=== PATIENT | male | born 1950 | race Caucasian/White ===

== ENCOUNTER 2016-06-07 01:40 | Inpatient (IN) | payer OTHER, MEDICARE ==
[2016-06-07] VITALS (18 sets, daily range): BP systolic 99–176; BP diastolic 55–91; PULSE 64–112; RESP 16–28; TEMP 97–98.7; O2SAT 87–100
[~2016-06-07] VITALS: Ht 180.3 cm; Wt 108.2 kg
[2016-06-07] MEDS ORDERED: LORazepam 2 MG/ML VIAL IV PUSH ONE ×2 (02:00→03:00)
[2016-06-07] MEDS ORDERED: NITROGLYCERIN-DEXTROSE INJ 250 ML IV ONE (02:00)
[2016-06-07] MEDS ORDERED: SODIUM CHLORIDE 0.9% FLUSH 5 ML FLUSH IVF PRN (02:00)
--- NOTE | 2016-06-07 02:23 | RADRPT ---
EXAM DATE/TIME: 06/07/2016 02:04 [facility] COMPARISON: No previous studies available for comparison. INDICATIONS : Shortness of breath. MEDICAL HISTORY : None. SURGICAL HISTORY : Pacemaker. ENCOUNTER: Initial ACUITY: 1 day PAIN SCORE: 0/10 LOCATION: Bilateral chest FINDINGS: Patchy areas of mixed interstitial and alveolar opacity is present in the mid and lower lungs bilater ally. No focal areas of consolidation. The heart is upper limits normal size. Cardiac pacer leads project in the right atrium and right ventricle. Both hemidiaphragms are well delineated. No eviden ce pneumothorax. CONCLUSION: Patchy non-consolidative infiltrates in the mid and lower lungs bilaterally. Edgar Mustafa MD on June 07, 2016 at 2:21 Board Certified Radiologist. This report was verified electronically.
[2016-06-07 02:28] LABS: AUTOMATED NEUTROPHIL # 9.9 TH/MM3 (1.8-7.7); BASOPHIL # 0.2 TH/MM3 (0-0.2); BASOPHIL % 0.9 % (0.0-2.0); EOSINOPHIL # 0.5 TH/MM3 (0-0.4); EOSINOPHIL % 2.1 % (0.0-4.0); HEMATOCRIT 35.7 % (39.0-51.0); LYMPH % 46.6 % (9.0-44.0); LYMPHOCYTE # 10.4 TH/MM3 (1.0-4.8); MEAN CELL VOLUME 92.6 FL (80.0-100.0); MEAN CORPUSCULAR HEMOGLOBIN 30.3 PG (27.0-34.0); MEAN CORPUSCULAR HGB CONC 32.8 % (32.0-36.0); MONO % 6.1 % (0.0-8.0); NEUT % 44.3 % (16.0-70.0); PLATELET COUNT 364 TH/MM3 (150-450); RED BLOOD COUNT 3.86 MIL/MM3 (4.50-5.90); RED CELL DISTRIBUTION WIDTH 15.3 % (11.6-17.2); WHITE BLOOD COUNT 22.2 TH/MM3 (4.0-11.0)
[2016-06-07 02:31] LABS: HEMO FLAGS AUTO DIFF
[2016-06-07 02:34] LABS: APTT (PATIENT) 26.2 SEC (24.3-30.1); PROTHROMBIN TIME - PATIENT 10.7 SEC (9.8-11.6)
[2016-06-07 02:38] LABS: BLOOD GAS CARBOXYHEMOGLOBIN 2.6 % (0-4); BLOOD GAS HCO3 23 mmol/L (22-26); BLOOD GAS METHEMOGLOBIN 0.5 % (0-2); BLOOD GAS O2 HGB SATURATION 97 % (90-100); BLOOD GAS OXYGEN CONTENT 16.3 Vol % (12.0-20.0); BLOOD GAS PCO2 48 mmHg (38-42); BLOOD GAS PO2 430 mmHG (61-120); BLOOD GAS TOTAL HGB 11.1 G/DL (12.0-16.0); TEMP CORR TO 98.6
[2016-06-07 02:39] LABS: CRITICAL VALUE YES; DRAW SITE RT RADIAL; FIO2 100 %; NUMBER OF ARTERIAL PUNCTURES 1; OXYGEN DEVICE BiPAP; STAT YES; ULNAR PULSE PRESENT; VENT SETTINGS IPAP15/EPAP5
[2016-06-07 02:49] LABS: ALT (GPT) 23 U/L (12-78); ANION GAP 12 MEQ/L (5-15); AST (GOT) 34 U/L (15-37); BICARBONATE 21.7 MEQ/L (21.0-32.0); BLOOD UREA NITROGEN 31 MG/DL (7-18); CHLORIDE 102 MEQ/L (98-107); GLOMERULAR FILTRATION RATE 47 ML/MIN (>89); SODIUM (NA) 136 MEQ/L (136-145)
[2016-06-07] MEDS ORDERED: CEFEPIME INJ 2,000 MG in SODIUM CHLORIDE 0.9% INJ 100 ML IV ONE (03:00)
[2016-06-07] MEDS ORDERED: BUMETANIDE INJ 1 MG/4 ML VIAL IV PUSH ONE (03:00)
[2016-06-07] MEDS ORDERED: AZITHROMYCIN INJ 500 MG in SODIUM CHLOR 0.9% 250 ML INJ 250 ML IV ONE (03:00)
[2016-06-07 03:01] LABS: ALKALINE PHOSPHATASE 158 U/L (45-117); POTASSIUM 4.3 MEQ/L (3.5-5.1); TOTAL BILIRUBIN ADULT 0.4 MG/DL (0.2-1.0)
[2016-06-07 03:31] LABS: BASOPHILS 1 % (0-2); EOSINOPHILS 3 % (0-4); NEUTROPHIL # MANUAL DIFF 12.7 TH/MM3 (1.8-7.7); POLYS (SEG NEUTROPHILS) 57 % (16-70); WBC DIFF SAMPLE 100
[2016-06-07 03:33] LABS: PLATELET ESTIMATE SMEAR NORMAL (NORMAL); PLATELET MORPHOLOGY NORMAL (NORMAL); SCAN/DIFF FINAL DIFF MANUAL
[2016-06-07] MEDS ORDERED: ASPIRIN 81 MG CHEW TAB CHEW ONE (03:45)
--- NOTE | 2016-06-07 03:46 | PD ---
HPI Chief Complaint: Respiratory Distress Time Seen by Provider: 01:46 Travel History International Travel<30 days: No Contact w/Intl Traveler<30days: No Traveled to known affect area: No History of Present Illness HPI This is a 65-year-old male who has a history congestive heart failure who presents to the emergency department having sudden onset shortness of breath this evening, constant, severe associated with sweating. He denies any chest pain. He says this feels similar to when he had a heart attack about a month ago. 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 History is limited as the patient is in severe respiratory distress. PFSH Past Surgical History Cardiac Surgery: Yes (pacemaker) Other Surgery: Yes (right leg artery collapsed and re-vascularized) Social History Alcohol Use: No Tobacco Use: No Substance Use: No Allergies-Medications (Allergen,Severity, Reaction): Coded Allergies: UNOBTAINABLE (Unverified , 06/07/16) Reported Meds & Prescriptions Reported Meds & Active Scripts Active Active Prescriptions or Reported Medications Unobtainable Review of Systems ROS Limitations: Clinical Condition Physical Exam Narrative GENERAL: ill-appearing, severe respiratory distress SKIN: Diaphoretic HEAD: Atraumatic. Normocephalic. EYES: Pupils equal and round. No injection or drainage. ENT: Moist mucous membranes NECK: Trachea midline. CARDIOVASCULAR: Tachycardic. No murmur appreciated. RESPIRATORY: Rales in the bilateral lung bases, using accessory muscles, tachypnea, speaking 2-3 word sentences GASTROINTESTINAL: Abdomen soft, non-tender, nondistended. MUSCULOSKELETAL: No obvious deformities. NEUROLOGICAL: Awake and alert. No obvious cranial nerve deficits. Moving all extremities. PSYCHIATRIC: Agitated. Data Data Last Documented VS Vital Signs Date Time Temp Pulse Resp B/P Pulse Ox O2 Delivery O2 Flow Rate FiO2 06/07/16 03:45 94 22 99/55 98 BiPAP 06/07/16 02:46 3 06/07/16 02:27 100 06/07/16 01:48 97.0 Orders Complete Blood Count With Diff (06/07/16 01:46) Comprehensive Metabolic Panel (06/07/16 01:46) B-Type Natriuretic Peptide (06/07/16 01:46) Act Partial Throm Time (Ptt) (06/07/16 01:46) Prothrombin Time / Inr (Pt) (06/07/16 01:46) Troponin I (06/07/16 01:46) Arterial Blood Gas (Abg) (06/07/16 01:46) Iv Access Insert/Monitor (06/07/16 01:46) Electrocardiogram (06/07/16 01:46) Ecg Monitoring (06/07/16 01:46) Oximetry (06/07/16 01:46) Oxygen Administration (06/07/16 01:46) Chest, Single Ap (06/07/16 01:46) Sodium Chloride 0.9% Flush (Ns Flush) (06/07/16 02:00) Resp Bipap / Cpap Non Invas Vt (06/07/16 01:46) Nitroglycerin-Dextrose Inj (Nitroglyceri (06/07/16 02:00) Lorazepam Inj (Ativan Inj) (06/07/16 02:00) Blood Culture (06/07/16 02:44) Lactic Acid (06/07/16 02:44) Cefepime Inj (Maxipime Inj) (06/07/16 03:00) Azithromycin Inj (Zithromax Inj) (06/07/16 03:00) Bumetanide Inj (Bumex Inj) (06/07/16 03:00) Lorazepam Inj (Ativan Inj) (06/07/16 03:00) Aspirin Chew (Aspirin Chew) (06/07/16 03:45) Labs Laboratory Tests Test 06/07/16 06/07/16 02:00 02:27 White Blood Count 22.2 TH/MM3 Red Blood Count 3.86 MIL/MM3 Hemoglobin 11.7 GM/DL Hematocrit 35.7 % Mean Corpuscular Volume 92.6 FL Mean Corpuscular Hemoglobin 30.3 PG Mean Corpuscular Hemoglobin 32.8 % Concent Red Cell Distribution Width 15.3 % Platelet Count 364 TH/MM3 Mean Platelet Volume 9.3 FL Neutrophils (%) (Auto) 44.3 % Lymphocytes (%) (Auto) 46.6 % Monocytes (%) (Auto) 6.1 % Eosinophils (%) (Auto) 2.1 % Basophils (%) (Auto) 0.9 % Neutrophils # (Auto) 9.9 TH/MM3 Lymphocytes # (Auto) 10.4 TH/MM3 Monocytes # (Auto) 1.3 TH/MM3 Eosinophils # (Auto) 0.5 TH/MM3 Basophils # (Auto) 0.2 TH/MM3 CBC Comment AUTO DIFF Differential Total Cells 100 Counted Neutrophils % (Manual) 57 % Lymphocytes % 35 % Monocytes % 4 % Eosinophils % 3 % Basophils % 1 % Neutrophils # (Manual) 12.7 TH/MM3 Differential Comment FINAL DIFF MANUAL Platelet Estimate NORMAL Platelet Morphology Comment NORMAL Red Cell Morphology Comment NORMAL Prothrombin Time 10.7 SEC Prothromb Time International 1.0 RATIO Ratio Activated Partial 26.2 SEC Thromboplast Time Sodium Level 136 MEQ/L Potassium Level 4.3 MEQ/L Chloride Level 102 MEQ/L Carbon Dioxide Level 21.7 MEQ/L Anion Gap 12 MEQ/L Blood Urea Nitrogen 31 MG/DL Creatinine 1.50 MG/DL Estimat Glomerular Filtration 47 ML/MIN Rate Random Glucose 443 MG/DL Calcium Level 8.4 MG/DL Total Bilirubin 0.4 MG/DL Aspartate Amino Transf 34 U/L (AST/SGOT) Alanine Aminotransferase 23 U/L (ALT/SGPT) Alkaline Phosphatase 158 U/L Troponin I LESS THAN 0.02 NG/ML B-Type Natriuretic Peptide 496 PG/ML Total Protein 7.8 GM/DL Albumin 3.6 GM/DL Blood Gas Puncture Site RT RADIAL Blood Gas Patient Temperature 98.6 Blood Gas HCO3 23 mmol/L Blood Gas Base Excess -3.0 mmol/L Blood Gas Oxygen Saturation 97 % Arterial Blood pH 7.29 Arterial Blood Partial 48 mmHg Pressure CO2 Arterial Blood Partial 430 mmHG Pressure O2 Arterial Blood Oxygen Content 16.3 Vol % Arterial Blood 2.6 % Carboxyhemoglobin Arterial Blood Methemoglobin 0.5 % Blood Gas Hemoglobin 11.1 G/DL Oxygen Delivery Device BiPAP Blood Gas Ventilator Setting IPAP15/EPAP5 Blood Gas Inspired Oxygen 100 % MDM Medical Decision Making Medical Screen Exam Complete: Yes Emergency Medical Condition: Yes Medical Record Reviewed: Yes (patient is listed as Buck Polo in her system. He was recently hospitalized in the setting of respiratory failure thought to be due to a myocardial infarction and flash pulmonary edema, pt had 100% occlusion of RCA which was intervened on, and he had a pacemaker and aicd placed.) Interpretation(s) Leukocytosis Renal insufficiency Hyperglycemia Troponin is normal BNP is 496 ABG: Mild respiratory acidosis Chest x-ray: Patchy nonconsolidated infiltrates in the mid and lower lungs bilaterally Differential Diagnosis Congestive heart failure, myocardial infarction, pneumonia, pulmonary embolism Narrative Course This is a 65-year-old male who has a history of congestive heart failure who presents to the emergency department having had onset of shortness of breath that started about an hour prior to arrival. He was in severe respiratory distress upon arrival, tripoding, diaphoretic and hypoxic. He was placed on BiPAP and started on nitroglycerin as he was quite hypertensive. He was given 1 mg of IV Bumex. He was found to have a marked leukocytosis so he was empirically covered with cefepime and azithromycin and cultures were obtained. IV fluids were deferred as the patient appears to have pulmonary edema on chest x-ray. Patient appears quite anxious and was given 2.5 mg IV Ativan doses in order to tolerate BiPAP. We did trial him off of BiPAP but he was quite hypoxic and had increased work of breathing. This appears to be flash pulmonary edema in the setting congestive heart failure. He has a paced morphology on EKG with no obvious STEMI. Patient will be admitted to the intensive care unit for further monitoring. Critical Care Narrative Aggregate critical care time was 45 minutes. Time to perform other separately billable procedures was not included in the critical care time. My time did not include minutes spent treating any other patients simultaneously or on activities that did not directly contribute to the patient's treatment. The services I provided to this patient were to treat and/or prevent clinically significant deterioration that could result in: Disability, I provided critical care services requiring my management, as noted below: Chart data review, documentation time, medication orders and management, vital sign assessments/reviewing monitor data, ordering and reviewing lab tests, ordering and interpreting/reviewing x-rays and diagnostic studies, care of the patient and discussion of the patient with the admitting physicians. Diagnosis Primary Impression: Acute respiratory failure with hypoxia Admitting Information Admitting Physician Requests: Admit Scripts Unable to Obtain Active Prescriptions or Reported Meds Leti Flores MD Jun 07, 2016 03:46
[2016-06-07] MEDS ORDERED: SODIUM CHLORIDE 0.9% FLUSH 5 ML FLUSH IV FLUSH PRN ×2 (04:30→06:45)
[2016-06-07] MEDS ORDERED: ACETAMINOPHEN 325 MG TAB PO PRN ×2 (04:30→06:45)
[2016-06-07] MEDS ORDERED: GLUCAGON 1 MG/ML VIAL OTHER PRN (04:30)
[2016-06-07] MEDS ORDERED: DEXTROSE 50% IN WATER 50 ML VIAL(D50) IV PUSH PRN (04:30)
[2016-06-07] MEDS ORDERED: ONDANSETRON HCL 4 MG/2 ML VIAL IV PRN ×2 (04:30→06:45)
[2016-06-07] MEDS ORDERED: CHLORHEXIDINE GLUCONATE 2 % 1 PACK (2 CLOTHS) TOP PRN ×2 (04:30→06:45)
[2016-06-07] MEDS ORDERED: MISCELLANEOUS NURSING INFORMATION XX SCH ×2 (04:30→06:45)
[2016-06-07] MEDS ORDERED: RESP: ALBUTEROL 2.5 MG/3 ML NEB (PRN) INH (04:30)
--- NOTE | 2016-06-07 05:43 | HHI.HP ---
[facility] Service Critical Care Medicine Primary Care Physician No Primary Care Physician Admission Diagnosis hypoxic respiratory failure Diagnosis: (1) History of ventricular tachycardia Diagnosis: Principal (2) Diabetes mellitus Diagnosis: Principal (3) Anemia Diagnosis: Principal (4) Hyperparathyroidism Diagnosis: Principal (5) Peripheral neuropathy Diagnosis: Principal (6) Peripheral vascular disease Diagnosis: Principal (7) Leukocytosis Diagnosis: Principal (8) Chronic kidney disease, stage III (moderate) Diagnosis: Principal (9) Dyslipidemia Diagnosis: Principal (10) Hypertension Diagnosis: Principal (11) Chronic systolic heart failure Diagnosis: Principal (12) Coronary artery disease Diagnosis: Principal (13) Acute respiratory failure with hypoxia Diagnosis: Principal (14) SIRS (systemic inflammatory response syndrome) Diagnosis: Principal Chief Complaint: Shortness of breath Travel History International Travel<30 Days: No Contact w/Intl Traveler <30 Da: No Traveled to Known Affected Are: No Sepsis Criteria SIRS Criteria (2 or more): RR > 20 or PaCO2 < 32, WBC > 62731, < 4000 or > 10 % bands Sepsis Criteria (SIRS+source): Infect source susp/known History of Present Illness 65-year-old male. Date of admission 06/07/2016. Past medical history includes recent heart catheterization 04/30/[address] Kan secondary to an inferior STEMI with PCI/MERE placed placed to the RCA and PDA. Left main was 30%. LAD was 40% proximal/80% diagonal. Left circumflex was 30%. EF was 20/5/30 percent. In [place] devices placed as well. Patient had prolonged intubation During this hospitalization developed V. tach as well and a dual-chamber defibrillator was placed by Dr. Yousif/DDD 70 on 05/27. Past medical history also includes coronary disease with 2 prior stents by the hypertension, diabetes,'s chronic systolic heart failure, peripheral vascular disease with a right femoropopliteal in situ saphenous vein revision [address] Mayes with thrombolytic colectomy to the popliteal artery and anterior and posterior tibial arteries. Patient presents to [facility] with acute onset of shortness of breath. Review of Systems Constitutional: COMPLAINS OF: Fatigue, Weight gain, DENIES: Weight loss, Chills Endocrine: DENIES: Polydipsia, Polyuria Eyes: DENIES: Blurred vision, Double Vision Ears, nose, mouth, throat: DENIES: Sinus Pain Respiratory: COMPLAINS OF: Sputum production, Shortness of breath, DENIES: Wheezing, Hemoptysis Cardiovascular: COMPLAINS OF: Chest pain, Dyspnea on Exertion, Lower Extremity Edema, Claudication Gastrointestinal: COMPLAINS OF: Abdominal pain, Nausea, DENIES: Vomiting Genitourinary: DENIES: Dysuria, Nocturia Musculoskeletal: DENIES: Joint pain, Muscle aches Integumentary: DENIES: Abnormal pigmentation Hematologic/lymphatic: DENIES: Bruising Immunologic/allergic: DENIES: Urticaria Neurologic: DENIES: Abnormal gait, Headache Psychiatric: COMPLAINS OF: Anxiety, DENIES: Confusion Past Family Social History Allergies: Coded Allergies: UNOBTAINABLE (Unverified , 06/07/16) Past Medical History Coronary artery disease history of 4 stents Hypertension Diabetes mellitus Chronic systolic heart failure Chronic kidney disease stage III Peripheral vascular disease Hyperparathyroidism Anemia Tobaccoism History of V. tach Past Surgical History Dual-chamber pacemaker/defibrillator Coronary catheterization with Impala device with drug-eluting stent placed RCA and PDA Bilateral inguinal hernia repair Right femoropopliteal revision with probable colectomy to the popliteal artery and anterior posterior tibial arteries Appendectomy Reported Medications Aspirin 81 mg by mouth daily Coreg 12.5 mg by mouth twice a day Norvasc 5 mill grams by mouth daily Amiodarone 200 mg by mouth daily Lipitor 80 mg by mouth daily Bumex 1 mg by mouth twice a day Levemir 15 units at night Protonix 40 mg by mouth daily Brilinta 90 mg twice a day Neurontin 300 mg 3 times a day Active Ordered Medications Reviewed in EMR Family History Father with AR. Social History Occasional alcohol use. Three-quarter pack per day tobaccoism. No IV drug use. Physical Exam Vital Signs Vital Signs Date Time Temp Pulse Resp B/P Pulse Ox O2 Delivery O2 Flow Rate FiO2 06/07/16 05:25 88 24 139/73 94 BiPAP 40 06/07/16 03:45 94 22 99/55 98 BiPAP 06/07/16 03:39 22 06/07/16 02:46 101 24 131/62 96 Nasal Cannula 3 06/07/16 02:27 98 BiPAP 100 06/07/16 02:24 102 26 167/79 98 BiPAP 06/07/16 02:02 111 28 121/65 98 BiPAP 100 06/07/16 01:52 96 BiPAP 06/07/16 01:52 BiPAP 06/07/16 01:50 100 100 06/07/16 01:48 97.0 112 28 176/91 87 Physical Exam GENERAL: SKIN: Warm and dry. HEAD: Atraumatic. Normocephalic. EYES: Pupils equal and round. No scleral icterus. No injection or drainage. ENT: No nasal bleeding or discharge. Mucous membranes pink and moist. NECK: Trachea midline. No JVD. CARDIOVASCULAR: Regular rate and rhythm. RESPIRATORY: No accessory muscle use. Clear to auscultation. Breath sounds equal bilaterally. GASTROINTESTINAL: Abdomen soft, non-tender, nondistended. Hepatic and splenic margins not palpable. MUSCULOSKELETAL: Extremities without clubbing, cyanosis, or edema. No obvious deformities. NEUROLOGICAL: Awake and alert. No obvious cranial nerve deficits. Motor grossly within normal limits. Five out of 5 muscle strength in the arms and legs. Normal speech. PSYCHIATRIC: Appropriate mood and affect; insight and judgment normal. Laboratory Laboratory Tests Test 06/07/16 06/07/16 06/07/16 02:00 02:27 03:40 White Blood Count 22.2 Red Blood Count 3.86 Hemoglobin 11.7 Hematocrit 35.7 Mean Corpuscular Volume 92.6 Mean Corpuscular Hemoglobin 30.3 Mean Corpuscular Hemoglobin 32.8 Concent Red Cell Distribution Width 15.3 Platelet Count 364 Mean Platelet Volume 9.3 Neutrophils (%) (Auto) 44.3 Lymphocytes (%) (Auto) 46.6 Monocytes (%) (Auto) 6.1 Eosinophils (%) (Auto) 2.1 Basophils (%) (Auto) 0.9 Neutrophils # (Auto) 9.9 Lymphocytes # (Auto) 10.4 Monocytes # (Auto) 1.3 Eosinophils # (Auto) 0.5 Basophils # (Auto) 0.2 CBC Comment AUTO DIFF Differential Total Cells 100 Counted Neutrophils % (Manual) 57 Lymphocytes % 35 Monocytes % 4 Eosinophils % 3 Basophils % 1 Neutrophils # (Manual) 12.7 Differential Comment FINAL DIFF MANUAL Platelet Estimate NORMAL Platelet Morphology Comment NORMAL Red Cell Morphology Comment NORMAL Prothrombin Time 10.7 Prothromb Time International 1.0 Ratio Activated Partial 26.2 Thromboplast Time Sodium Level 136 Potassium Level 4.3 Chloride Level 102 Carbon Dioxide Level 21.7 Anion Gap 12 Blood Urea Nitrogen 31 Creatinine 1.50 Estimat Glomerular Filtration 47 Rate Random Glucose 443 Calcium Level 8.4 Total Bilirubin 0.4 Aspartate Amino Transf 34 (AST/SGOT) Alanine Aminotransferase 23 (ALT/SGPT) Alkaline Phosphatase 158 Troponin I LESS THAN 0.02 B-Type Natriuretic Peptide 496 Total Protein 7.8 Albumin 3.6 Blood Gas Puncture Site RT RADIAL Blood Gas Patient Temperature 98.6 Blood Gas HCO3 23 Blood Gas Base Excess -3.0 Blood Gas Oxygen Saturation 97 Arterial Blood pH 7.29 Arterial Blood Partial 48 Pressure CO2 Arterial Blood Partial 430 Pressure O2 Arterial Blood Oxygen Content 16.3 Arterial Blood 2.6 Carboxyhemoglobin Arterial Blood Methemoglobin 0.5 Blood Gas Hemoglobin 11.1 Oxygen Delivery Device BiPAP Blood Gas Ventilator Setting IPAP15/EPAP5 Blood Gas Inspired Oxygen 100 Lactic Acid Level 1.5 Date/Time Procedure Status Source Growth 06/07/16 03:40 Aerobic Blood Culture Received Blood Peripheral Pending 06/07/16 03:40 Anaerobic Blood Culture Received Blood Peripheral Pending Result Diagram: 06/07/16 0200 06/07/16 0200 Imaging Last Impressions Chest X-Ray 06/07/16 0146 Signed Impressions: Service Date/Time: Tuesday, June 07, 2016 02:04 - CONCLUSION: Patchy non-consolidative infiltrates in the mid and lower lungs bilaterally. Edgar Mustafa MD Assessment and Plan Assessment and Plan Neuro/Psych: Peripheral neuropathy secondary to diabetes Continue Neurontin 300 mg by mouth 3 times a day for neuropathy. Acetaminophen for fever [place]/morphine for pain management CV: Chronic systolic heart failure EF 25-30% with mild LVH and diffuse hypokinesis Peripheral vascular disease - history of right femoropopliteal with in situ saphenous vein grafting with thrombectomy of popliteal artery/anterior posterior tibial arteries [address] Mayes Coronary artery disease recent PCI/drug-eluting stent to RCA/PDA 04/[address] Kan secondary to inferior STEMI Dual-chamber defibrillator placed 05/[address] Yousif. DDD/70 Hypertension Dyslipidemia Elevated troponin Cardiac consultation/Dr. Kan cardiac management Cycle troponins. Limited echo cardiogram to eval LV function pending Continue amiodarone 200 mg by mouth daily for history of V. tach Continue Brilinta 90 mg twice a day and aspirin 81 mg daily for heart stent Continue diuresis with Bumex 1 mg IV twice a day. On by mouth at home. Kilo 30 mg by mouth daily for dyslipidemia. Resume Coreg at 6.25 mg twice a day and Norvasc 2.5 mg by mouth daily for hypertension. On double dose at home. Resp: Acute hypoxemic respiratory failure Currently on BiPAP 15/5 at 40% Wean FiO2 as tolerated Chest x-ray reveals bilateral lower lobe infiltrates versus pulmonary edema. Continue gentle diuresis. Bronchodilator therapy every 6 hours and as needed GI: Gastroesophageal reflux disease ADA diet. Protonix for GI prophylaxis. On Protonix home. Colace/as needed Senokot for bowel regimen : [place] will be placed for accurate I's and O's in a critically ill patient Endo: Diabetes mellitus type 2 Hyperglycemia of critical illness On lispro 15 units daily at home. Sliding-scale insulin with Accu-Cheks every 4 hours to maintain euglycemia. Initiate insulin drip if unable to maintain tight euglycemic control Renal: Chronic kidney disease stage III. Creatinine currently is at baseline. Monitor urine output closely. Accurate I 's and O's Heme: Leukocytosis Normocytic anemia Monitor CBC/CMP daily. Follow trends ID: Possible community-acquired pneumonia History of MRSA treated with Zyvox Day 1 cefepime/Zithromax. Will add Zyvox history of MRSA pneumonia in sputum Blood cultures 2, sputum and UA pending. Influenza pending. FEN: Replace electrolytes as clinically indicated MSK: Osteoarthritis PT evaluate and treat Access - Utilize peripheral IV. Central line if indicated Prophylaxis - GI - Protonix - DVT - SCD/Lovenox subcutaneous Critical Care: The total critical care time was 75 minutes exclusive of procedure time. Code Status Full code Discussed Condition With Dr. Flores/ED physician and patient. Care plan discussed and all questions answered. Problem Qualifiers (1) Diabetes mellitus: Qualified Code: E11.8 - Type 2 diabetes mellitus with complication, with long- term current use of insulin (2) Anemia: Qualified Code: D64.9 - Anemia, unspecified type (3) Peripheral neuropathy: Qualified Code: G62.9 - Peripheral polyneuropathy (4) Leukocytosis: Qualified Code: D72.829 - Leukocytosis, unspecified type (5) Coronary artery disease: Qualified Code: I25.10 - Coronary artery disease involving [place] coronary artery of [place] heart, angina presence unspecified Dennis Schaefer MD Jun 07, 2016 05:43
[2016-06-07] MEDS: INSULIN ASPART SUPPLEMENTAL SCALE SQ SCH ×5 (05:48→20:31)
[2016-06-07] MEDS ORDERED: SENNOSIDES 8.6 MG TAB PO PRN (06:45)
[2016-06-07 07:49] LABS: BLOOD, URINE NEG (NEG); GLUCOSE,URINE 300 mg/dL (NEG); HYALINE CAST, URINE 2 /lpf (RARE); KETONE, URINE NEG (NEG); NITRITE,URINE NEG (NEG); URINE COLOR COLORLESS (YELLW/STRAW)
[2016-06-07 07:55] LABS: COMMENT (UR) CATH-CULT NOT IND; CULTURE IF INDICATED CATH CULTURE NOT IND
[2016-06-07] MEDS: SODIUM CHLORIDE 0.9% FLUSH 5 ML FLUSH IV FLUSH SCH ×2 (09:00→20:32)
[2016-06-07] MEDS: DOCUSATE SODIUM 100 MG CAP PO SCH ×2 (09:00→20:37)
[2016-06-07] MEDS: ASPIRIN 81 MG CHEW TAB CHEW SCH (09:00)
[2016-06-07] MEDS ORDERED: SODIUM CHLORIDE 0.9% FLUSH 5 ML FLUSH IV FLUSH SCH (09:00)
[2016-06-07] MEDS: AMIODARONE 200 MG TAB PO SCH (09:00)
[2016-06-07] MEDS ORDERED: PANTOPRAZOLE SODIUM 40 MG VIAL IV SCH (09:00)
[2016-06-07] MEDS: GABAPENTIN 300 MG CAP PO SCH ×3 (09:00→18:04)
[2016-06-07] MEDS: PANTOPRAZOLE SOD 40 MG DELAYED RELEASE TAB PO SCH (09:00)
[2016-06-07] MEDS: CARVEDILOL 6.25 MG TAB PO SCH ×2 (09:00→20:36)
[2016-06-07] MEDS: INSULIN DETEMIR 100 UNITS/ML VIAL SQ SCH ×2 (09:00→20:32)
[2016-06-07] MEDS: amLODIPine BESYLATE 5 MG TAB PO SCH (09:00)
[2016-06-07] MEDS: RESP: ALBUTEROL 2.5 MG/IPRATROPIUM 0.5 MG NEB (SCH) INH ×3 (09:50→21:14)
[2016-06-07] MEDS: ENOXAPARIN SODIUM 40 MG/0.4 ML SYRINGE SQ SCH (11:16)
[2016-06-07] MEDS: MORPHINE SULFATE 4 MG/ML INJ IV PRN ×6 (11:16→22:34)
[2016-06-07] MEDS: TICAGRELOR 90 MG TAB PO SCH ×2 (11:17→20:36)
[2016-06-07] MEDS: ATORVASTATIN 20 MG TAB PO SCH (11:17)
[2016-06-07] MEDS: ARTIFICIAL TEARS OPTH SOLN 15 ML BTL EACH EYE SCH ×3 (11:17→18:03)
--- NOTE | 2016-06-07 11:40 | RADRPT ---
EXAM DATE/TIME: 06/07/2016 11:05 [facility] COMPARISON: No previous studies available for comparison. INDICATIONS : Bilateral lower extremity edema. MEDICAL HISTORY : Dyspnea. SURGICAL HISTORY : Pacemaker. Right leg artery re-vascularized. ENCOUNTER: Initial ACUITY: 1 day PAIN SCORE: 0/10 LOCATION: Bilateral legs. TECHNIQUE: Venous ultrasound of the left and right leg was performed from the inguinal ligament to the proximal calf. Real-time, color Doppler and spectral tracing, compression and augmentation techniques were us ed. FINDINGS: RIGHT LEG: There is normal compressibility of the deep venous system from the inguinal region to the proximal ca lf. No echogenic clot is seen in the lumen of the common femoral, femoral, popliteal, and posterior tibial veins. There is a normal response of the venous system to proximal and distal augmentation an d respiration. LEFT LEG: There is normal compressibility of the deep venous system from the inguinal region to the proximal ca lf. No echogenic clot is seen in the lumen of the common femoral, femoral, popliteal, and posterior tibial veins. There is a normal response of the venous system to proximal and distal augmentation an d respiration. CONCLUSION: No DVT. Florencio Jules MD on June 07, 2016 at 11:38 Board Certified Radiologist. This report was verified electronically.
[2016-06-07] MEDS ORDERED: SODIUM BICARBONATE 8.4% INJ 150 MEQ in WATER STERILE FOR INJ 850 ML IV SCH (15:00)
[2016-06-07] MEDS ORDERED: IOHEXOL 350 MG/ML 10 ML VIAL (for RAD DIAG) IV ONE (15:22)
--- NOTE | 2016-06-07 15:45 | RADRPT ---
EXAM DATE/TIME: 06/07/2016 15:18 [facility] COMPARISON: No previous studies available for comparison. INDICATIONS : Shortness of breath; evaluate for pulmonary embolism. IV CONTRAST: 50 cc Omnipaque 350 (iohexol) IV RADIATION DOSE: 17.01 CTDIvol (mGy) MEDICAL HISTORY : None SURGICAL HISTORY : Pacemaker. ENCOUNTER: Initial ACUITY: 1 day PAIN SCALE: 0/10 LOCATION: chest TECHNIQUE: Volumetric scanning of the chest was performed using a pulmonary embolism protocol MIP images were re constructed. Using automated exposure control and adjustment of the mA and/or kV according to patien t size, radiation dose was kept as low as reasonably achievable to obtain optimal diagnostic quality images. FINDINGS: PULMONARY ARTERIES: No filling defects are seen in the pulmonary arteries through the segmental level. LUNGS: Patchy airspace opacities are seen of both lungs, fairly diffuse but with a somewhat mid and lower te[place] ng predominant distribution. PLEURAE: Tiny, bilateral pleural effusions. MEDIASTINUM: There are numerous mediastinal lymph nodes that measure up to 15 mm in greatest short axis dimension. There are upper limits of normal lymph nodes of both lani. Heart size within normal limits. Widespre ad right and left-sided coronary artery calcification noted. MUSCULOSKELETAL: Within normal limits for patient age. MISCELLANEOUS: Several heterogeneous nodules are seen in the left adrenal gland. There is a 2.5 cm cyst of the visua lized left ovary. CONCLUSION: 1. No pulmonary embolus. 2. Very small, bilateral pleural effusions and patchy bilateral airspace opacities. 3. Mildly enlarged mediastinal lymph nodes, nonspecific. 4. Several nodules up to 2 cm in size of the left adrenal gland, incompletely characterized but stati stically most likely adenomas. There is a cyst of the left kidney. 5. Coronary artery calcification. Florencio Hamilton MD on June 07, 2016 at 15:40 Board Certified Radiologist. This report was verified electronically.
[2016-06-07] MEDS: BUMETANIDE INJ 1 MG/4 ML VIAL IV PUSH SCH (15:51)
[2016-06-07] MEDS: CEFEPIME INJ 2,000 MG in SODIUM CHLORIDE 0.9% INJ 100 ML IV SCH (15:51)
--- NOTE | 2016-06-07 16:32 | MB ---
cc: ROBERT RESENDEZ DO DATE OF CONSULTATION: 06/07/2016. REASON FOR CONSULTATION: Elevation of troponins. HISTORY OF PRESENT ILLNESS: This is a pleasant 65-year-old male who presented to the [facility] Emergency Room on June 07, 2016 for shortness of breath. NOTE: Of note, he previously was here and has a had another record within our system with a medical record number of [id number] from previous visits. Previously when he was, he was found to have an inferior STEMI and underwent cardiac catheterization. During this, an ____ was placed and two drug-eluting stents were placed into the distal RCA and PDA. Afterwards, it appears he developed AV block and had episodes of ventricular tachycardia. Because of this, he had an ICD placed. Since leaving, he states that he has been doing relatively well at home although he cannot walk as far as he feels like he could before. He has been doing relatively well and trying to do his exercises every day including walking. Since being home, he has two or three episodes where he wakes up at night short of breath, sits up for a little while and feels better. Also over the last ten days, he has noticed that he has woken up with episodes of diaphoresis. During the day, including his exercises, he gets no chest pain or diaphoresis. He has had no chest pain at home although he never had chest pain with his previous myocardial infarction. Yesterday for lunch he drank a amador anuradha and ate a ham sandwich and then took his mother out to dinner where he had a [employer]. He woke up last night with an episode shortness of breath. He was not having chest pain at that time. The shortness of breath did not go away so he decided to call 9--1. On arrival, he was found to be significantly short of breath and at that time was placed on BiPAP. He was also given a milligram of IV Bumex. On seeing him, he states that he is currently comfortable on nasal cannula. He denies chest pain or shortness of breath. Lastly, he notes blisters on both his heels which appear to be eschar. He states that these are relatively new. PAST MEDICAL HISTORY: 1. Coronary artery disease with recent inferior stenting (April 2016). 2. Hypertension 3. Diabetes mellitus 4. Chronic systolic heart failure with an ejection fraction of 25% to 30% by echocardiogram (May 05, 2016). 5. History of ventricular tachycardia after previous myocardial infarction. 6. Chronic kidney disease. 7. Peripheral vascular disease. 8. Hyperparathyroidism. 9. Anemia. PAST SURGICAL HISTORY: 1. Placement of a [employer] dual-chamber ICD (May 05, 2016), model number 0296, serial number [id number] for the AV block and ventricular tachycardia. 2. Cardiac catheterization (April 30, 2016): For an inferior STEMI with placement of a drug-eluting stent (3.0 x 30) to the distal right coronary artery, drug-eluting stent (2.75 x 13) to the posterior descending artery. 3. Bilateral inguinal hernia repair 4. Right femoropopliteal revision to the popliteal artery and anterior and posterior tibial arteries. ALLERGIES: NO KNOWN DRUG ALLERGIES. MEDICATIONS: 1. Aspirin 81 milligrams daily 2. Coreg 12.5 milligrams twice a day 3. Norvasc 5 milligrams daily 4. Amiodarone 200 milligrams daily 5. Lipitor 80 milligrams daily 6. Bumex 1 milligram twice a day 7. Levemir 15 units at night 8. Protonix 40 milligrams daily 9. Brilinta 90 milligrams twice a day 10. Neurontin 300 mg three times a day. FAMILY HISTORY: Multiple family members with myocardial infarctions in their 60s to 70s. SOCIAL HISTORY: Occasional alcohol use. No IV drug abuse. Does smoke a half to overt three-quarters of a pack of cigarettes daily. REVIEW OF SYSTEMS Fourteen systems were reviewed including osteopathic with pertinent positives and negatives as above; otherwise negative. PHYSICAL EXAMINATION VITAL SIGNS: Temperature 97.0, heart rate 81, blood pressure 121/63, respirations 20, pulse oximetry 99% on four liters. GENERAL: In general the patient appears well and in no acute distress, awake, alert and oriented times three. HEAD, EYES, EARS, NOSE, THROAT: Extraocular muscles intact. Mucous membranes moist. NECK: The neck is supple. Minimal JVD at 45 degrees. No carotid bruits heard bilaterally. Carotid upstroke is brisk in nature. HEART: Regular rate and rhythm. Positive first and second heart sounds with a 1/6 holosystolic murmur noted at the apex. LUNGS: Decreased breath sounds bilaterally with minimal rhonchi and rales at the bases. ABDOMEN: The abdomen is soft, nontender and nondistended. No organomegaly noted. EXTREMITIES: No clubbing, cyanosis or edema. Bilateral heels with eschar wounds noted. NEUROLOGIC: No focal deficits. SKIN: Warm, dry and intact. OSTEOPATHIC: Osteopathically, no kyphoscoliosis, lordosis or paraspinal tender points. LABORATORY FINDINGS: White blood cells 22.2, hemoglobin 11.7, hematocrit 35.7, platelets 364,000. Blood gas shows pH 7.29, pCO2 48, pO2 430, HCO3 23 on BiPAP at 100%. Potassium 4.3, BUN 31, creatinine 1.5. Troponin 1.96. BNP 496. Lactic acid 1.5. EKGS: Electrocardiogram (June 07, 2016 at 1100): Electronic V-paced. IMPRESSIONS: 1. Acute on chronic systolic heart failure possibly due to ischemia versus excess salt intake. 2. NSTEMI, possible type 1 versus type 2. 3. Coronary artery disease as above with recent inferior STEMI requiring intervention. 4. Chronic systolic heart failure with an ejection fraction of 25% to 30% by echocardiogram (May 05, 2016). 5. Leukocytosis with an unknown cause. 6. Hypoxia, possibly multifactorial, including acute systolic heart failure. 7. Night sweats from an unknown cause. 8. Peripheral artery disease with bilateral heel eschar wounds and previous right lower extremity femoropopliteal bypass. 9. History of AV block and ventricular tachycardia post STEMI requiring placement of an ICD 10. Chronic kidney disease stage III. 11. Diabetes mellitus with peripheral neuropathy. 12. criteria with unknown source for sepsis. RECOMMENDATIONS: 1. Mr. Polo appears to be an acute systolic heart failure although this may not the only cause of his shortness of breath. He did overload on salt the day before and this may have led him into his acute systolic heart failure. We will continue to diurese him from that standpoint. 2. As far as his NSTEMI, this may be type 1 versus type 2 in nature. He will continue on his aspirin Brilinta, Lipitor and Coreg. 3. As far as his history of ventricular tachycardia, he will continue on amiodarone. 4. Will check a 2-D echocardiogram to look at his overall left ventricular function. 5. I did speak with the critical care team about consideration of other causes of his shortness of breath; specifically, with his night sweats and elevated white blood count. The plan will be for a CTA to look not only for a pulmonary embolus but at his infiltrates and possible pneumonia. 6. Depending on his hospital course, we will consider further ischemic evaluation based on his NSTEMI and acute heart failure. Thank you for allowing me to see Parag Polo. If there are any questions, please do not hesitate to call. Robert Resendez DO VGP/JCC /3:01 PM /3:55 PM
--- NOTE | 2016-06-07 17:49 | EKG ---
Date Performed: 06/07/2016 Time Performed: 01:44:42 PTAGE: 65 years EKG: ELECTRONIC VENTRICULAR PACEMAKER ABNORMAL RHYTHM ECG NO PREVIOUS TRACING DOCTOR: Ernesto Smipson Interpretating Date/Time 06/07/2016 17:47:48
--- NOTE | 2016-06-07 17:50 | EKG ---
Date Performed: 06/07/2016 Time Performed: 11:00:40 PTAGE: 65 years EKG: ELECTRONIC VENTRICULAR PACEMAKER ABNORMAL RHYTHM ECG Compared to prior tracing no significa nt change PREVIOUS TRACING : 06/07/2016 05.36 DOCTOR: Ernesto Simpson Interpretating Date/Time 06/07/2016 17:49:32
--- NOTE | 2016-06-07 17:50 | EKG ---
Date Performed: 06/07/2016 Time Performed: 05:36:33 PTAGE: 65 years EKG: ELECTRONIC VENTRICULAR PACEMAKER ABNORMAL RHYTHM ECG PREVIOUS TRACING 06/07/16 @ 01.44.42 DOCTOR: Ernesto Simpson Interpretating Date/Time 06/07/2016 17:48:52
[2016-06-07] MEDS: LINEZOLID 600 MG TAB PO SCH (20:36)
[2016-06-07] MEDS: ACETYLCYSTEINE 20% 6,000 MG/30 ML ORAL SOLN VIAL PO SCH (20:36)
[2016-06-08] VITALS (14 sets, daily range): BP systolic 102–127; BP diastolic 57–71; PULSE 69–71; RESP 13–24; TEMP 97.7–98.6; O2SAT 91–97
[2016-06-08] MEDS: MORPHINE SULFATE 4 MG/ML INJ IV PRN ×9 (01:03→22:30)
[2016-06-08] MEDS: ACETAMINOPHEN/HYDROcodone 325 MG/5 MG TAB PO PRN ×5 (01:57→22:35)
[2016-06-08] MEDS: CEFEPIME INJ 2,000 MG in SODIUM CHLORIDE 0.9% INJ 100 ML IV SCH ×2 (02:01→14:36)
[2016-06-08] MEDS: BUMETANIDE INJ 1 MG/4 ML VIAL IV PUSH SCH ×2 (02:01→14:36)
[2016-06-08] MEDS: AZITHROMYCIN INJ 500 MG in SODIUM CHLOR 0.9% 250 ML INJ 250 ML IV SCH (02:02)
[2016-06-08] MEDS ORDERED: CHLORHEXIDINE GLUCONATE 2 % 1 PACK (2 CLOTHS) TOP SCH (04:00)
[2016-06-08] MEDS: INSULIN ASPART SUPPLEMENTAL SCALE SQ SCH ×6 (04:00→20:00)
[2016-06-08] MEDS: CHLORHEXIDINE GLUCONATE 2 % 1 PACK (2 CLOTHS) TOP SCH (04:00)
[2016-06-08] MEDS: RESP: ALBUTEROL 2.5 MG/IPRATROPIUM 0.5 MG NEB (SCH) INH ×4 (04:01→21:41)
[2016-06-08 04:06] LABS: AUTOMATED NEUTROPHIL # 7.1 TH/MM3 (1.8-7.7); BASOPHIL # 0.1 TH/MM3 (0-0.2); BASOPHIL % 1.1 % (0.0-2.0); EOSINOPHIL # 0.2 TH/MM3 (0-0.4); EOSINOPHIL % 1.9 % (0.0-4.0); HEMATOCRIT 27.3 % (39.0-51.0); HEMO FLAGS DIFF FINAL; LYMPH % 23.3 % (9.0-44.0); LYMPHOCYTE # 2.5 TH/MM3 (1.0-4.8); MEAN CORPUSCULAR HEMOGLOBIN 31.1 PG (27.0-34.0); MEAN CORPUSCULAR HGB CONC 34.6 % (32.0-36.0); MONO % 6.7 % (0.0-8.0); PLATELET COUNT 180 TH/MM3 (150-450); RED BLOOD COUNT 3.03 MIL/MM3 (4.50-5.90); RED CELL DISTRIBUTION WIDTH 14.7 % (11.6-17.2); WHITE BLOOD COUNT 10.6 TH/MM3 (4.0-11.0)
[2016-06-08 04:13] LABS: APTT (PATIENT) 28.6 SEC (24.3-30.1); INTERNATIONAL NORMALIZED RATIO 1.1 RATIO; PROTHROMBIN TIME - PATIENT 11.7 SEC (9.8-11.6)
[2016-06-08 04:37] LABS: ALKALINE PHOSPHATASE 88 U/L (45-117); ALT (GPT) 19 U/L (12-78); ANION GAP 8 MEQ/L (5-15); AST (GOT) 50 U/L (15-37); BICARBONATE 28.8 MEQ/L (21.0-32.0); BLOOD UREA NITROGEN 31 MG/DL (7-18); CHLORIDE 103 MEQ/L (98-107); GLOMERULAR FILTRATION RATE 52 ML/MIN (>89); MAGNESIUM 1.6 MG/DL (1.5-2.5); POTASSIUM 3.6 MEQ/L (3.5-5.1); SODIUM (NA) 140 MEQ/L (136-145); TOTAL BILIRUBIN ADULT 0.5 MG/DL (0.2-1.0)
--- NOTE | 2016-06-08 06:52 | RADRPT ---
EXAM DATE/TIME: 06/08/2016 05:17 [place] COMPARISON: CHEST SINGLE AP, June 07, 2016, 2:04. INDICATIONS : Shortness of breath, possible pulmonary disease. MEDICAL HISTORY : None. SURGICAL HISTORY : Pacemaker. ENCOUNTER: Subsequent ACUITY: 2 days PAIN SCORE: 0/10 LOCATION: Bilateral chest FINDINGS: Patchy nonconsolidated infiltrates in lower lungs have improved slightly when compared to prior. No focal areas of consolidation. The heart is mildly enlarged, stable from prior. Both hemidiaphragms are well delineated. CONCLUSION: Persistent but improving bilateral acinar infiltrates. Edgar Mustafa MD on June 08, 2016 at 6:50 Board Certified Radiologist. This report was verified electronically.
[2016-06-08] MEDS: ACETYLCYSTEINE 20% 6,000 MG/30 ML ORAL SOLN VIAL PO SCH ×2 (08:57→20:40)
[2016-06-08] MEDS: ATORVASTATIN 20 MG TAB PO SCH (08:58)
[2016-06-08] MEDS: INSULIN DETEMIR 100 UNITS/ML VIAL SQ SCH ×2 (08:58→20:39)
[2016-06-08] MEDS: ASPIRIN 81 MG CHEW TAB CHEW SCH (08:58)
[2016-06-08] MEDS: AMIODARONE 200 MG TAB PO SCH (08:58)
[2016-06-08] MEDS: PANTOPRAZOLE SOD 40 MG DELAYED RELEASE TAB PO SCH (08:58)
[2016-06-08] MEDS: TICAGRELOR 90 MG TAB PO SCH ×2 (08:58→20:39)
[2016-06-08] MEDS: DOCUSATE SODIUM 100 MG CAP PO SCH ×2 (08:58→20:39)
[2016-06-08] MEDS: GABAPENTIN 300 MG CAP PO SCH ×3 (08:58→17:35)
[2016-06-08] MEDS: LINEZOLID 600 MG TAB PO SCH ×2 (08:58→20:39)
[2016-06-08] MEDS: CARVEDILOL 6.25 MG TAB PO SCH ×2 (08:59→20:39)
[2016-06-08] MEDS: amLODIPine BESYLATE 5 MG TAB PO SCH (08:59)
[2016-06-08] MEDS: ENOXAPARIN SODIUM 40 MG/0.4 ML SYRINGE SQ SCH (08:59)
--- NOTE | 2016-06-08 09:01 | PD.CARD.PN ---
Subjective Subjective Remarks No chest pain, no shortness of breath Objective Medications Current Medications Medications (Trade) Dose Ordered Sig/Lily Route Start Time Stop Time Status Last Admin (Zofran Inj) 4 mg Q6H PRN IV 06/07/16 04:30 (Lovenox Inj) 40 mg Q24H SQ 06/07/16 09:00 06/07/16 11:16 Miscellaneous Information 1 Q361D XX 06/07/16 04:30 (Chlorhexidine 2% Cloth) 3 pack Taper DAILY@04 TOP 06/08/16 04:00 06/04/17 03:59 06/08/16 04:00 (Chlorhexidine 2% Cloth) 3 pack UNSCH PRN TOP 06/07/16 04:30 Bumetanide 1 mg 1 mg Q12H IV PUSH 06/07/16 15:00 06/08/16 02:01 Cefepime HCl 2000 mg/Sodium Chloride 100 ml @ 200 mls/hr Q12H IV 06/07/16 15:00 06/08/16 02:01 (Zithromax Inj/ NS 250 ml Inj) 250 ml @ 250 mls/hr Q24H IV 06/08/16 03:00 06/08/16 02:02 (D50w (Vial) Inj) 25 ml UNSCH PRN IV PUSH 06/07/16 04:30 (Glucagon Inj) 1 mg UNSCH PRN OTHER 06/07/16 04:30 (NovoLOG SUPPLEMENTAL SCALE) 1 Q4HR SQ 06/07/16 04:30 06/07/16 20:31 (Aspirin Chew) 81 mg DAILY CHEW 06/07/16 09:00 06/07/16 09:00 (Brilinta) 90 mg BID PO 06/07/16 09:00 06/07/16 20:36 (Coreg) 6.25 mg Q12HR PO 06/07/16 09:00 06/07/16 20:36 (Norvasc) 2.5 mg DAILY PO 06/07/16 09:00 06/07/16 09:00 (Cordarone) 200 mg DAILY PO 06/07/16 09:00 06/07/16 09:00 (Lipitor) 20 mg DAILY PO 06/07/16 09:00 06/07/16 11:17 (Neurontin) 300 mg TID PO 06/07/16 09:00 06/07/16 18:04 (Levemir Inj) 8 units Q12HR SQ 06/07/16 09:00 06/07/16 20:32 (NS Flush) 2 ml UNSCH PRN IV FLUSH 06/07/16 06:45 (NS Flush) 2 ml BID IV FLUSH 06/07/16 09:00 06/07/16 20:32 (Tylenol) 650 mg Q6H PRN PO 06/07/16 06:45 (Docena 5-325 Mg) 1 tab Q4H PRN PO 06/07/16 06:45 06/08/16 07:29 (Morphine Inj) 2 mg Q2H PRN IV 06/07/16 06:45 06/08/16 06:28 (Protonix) 40 mg DAILY PO 06/07/16 09:00 06/07/16 09:00 (Tears Naturale Opth Soln) 1 drop TID EACH EYE 06/07/16 09:00 06/07/16 18:03 (Colace) 100 mg BID PO 06/07/16 09:00 06/07/16 20:37 (Senokot) 17.2 mg Q12H PRN PO 06/07/16 06:45 (Zyvox) 600 mg Q12HR PO 06/07/16 21:00 06/07/16 20:36 (Mucomyst 20% Liq) 600 mg BID PO 06/07/16 21:00 06/09/16 09:01 06/07/16 20:36 Vital Signs / I&O Vital Signs Date Time Temp Pulse Resp B/P Pulse Ox O2 Delivery O2 Flow Rate FiO2 06/08/16 06:00 69 06/08/16 04:00 69 06/08/16 04:00 98.6 69 24 110/62 95 06/08/16 02:00 69 06/08/16 00:00 69 06/08/16 00:00 98.2 69 20 102/57 92 06/07/16 22:00 69 06/07/16 21:15 92 Nasal Cannula 4.00 06/07/16 20:00 98.6 80 24 127/69 90 06/07/16 20:00 80 06/07/16 18:00 64 06/07/16 16:00 98.2 69 23 129/74 96 06/07/16 16:00 70 06/07/16 14:30 98.7 68 16 128/65 97 06/07/16 10:49 81 20 121/63 99 Nasal Cannula 4 06/07/16 09:54 99 Nasal Cannula 6.00 I/O 06/07/16 06/07/16 06/07/16 06/08/16 06/08/16 06/08/16 07:00 15:00 23:00 07:00 15:00 23:00 Intake Total 1418 ml 1249 ml Output Total 400 ml 975 ml 400 ml Balance -400 ml 443 ml 849 ml Intake Oral 720 ml 480 ml IV Total 698 ml 769 ml Output Urine Total 400 ml 975 ml 400 ml # Voids 1 # Bowel Movements 0 Physical Exam GENERAL: NAD, AAOx3 SKIN: Warm and dry. HEAD: Atraumatic. Normocephalic. EYES: Pupils equal and round. No scleral icterus. No injection or drainage. ENT: No nasal bleeding or discharge. Mucous membranes pink and moist. NECK: Trachea midline. No JVD. CARDIOVASCULAR: Regular rate and rhythm. RESPIRATORY: No accessory muscle use. Decreased breath sounds bilaterally GASTROINTESTINAL: Abdomen soft, non-tender, nondistended. Hepatic and splenic margins not palpable. MUSCULOSKELETAL: Extremities without clubbing, cyanosis, or edema. No obvious deformities. Bilateral heal ulcers with eschar NEUROLOGICAL: Awake and alert. No obvious cranial nerve deficits. Motor grossly within normal limits. Five out of 5 muscle strength in the arms and legs. Normal speech. PSYCHIATRIC: Appropriate mood and affect; insight and judgment normal. Laboratory Laboratory Tests Test 06/07/16 06/07/16 06/07/16 06/07/16 10:00 12:25 13:00 18:14 Troponin I 1.55 NG/ML 1.96 NG/ML 3.87 NG/ML Nasal Screen MRSA (PCR) NEGATIVE Test 06/08/16 03:42 White Blood Count 10.6 TH/MM3 Red Blood Count 3.03 MIL/MM3 Hemoglobin 9.4 GM/DL Hematocrit 27.3 % Mean Corpuscular Volume 90.0 FL Mean Corpuscular Hemoglobin 31.1 PG Mean Corpuscular Hemoglobin 34.6 % Concent Red Cell Distribution Width 14.7 % Platelet Count 180 TH/MM3 Mean Platelet Volume 8.5 FL Neutrophils (%) (Auto) 67.0 % Lymphocytes (%) (Auto) 23.3 % Monocytes (%) (Auto) 6.7 % Eosinophils (%) (Auto) 1.9 % Basophils (%) (Auto) 1.1 % Neutrophils # (Auto) 7.1 TH/MM3 Lymphocytes # (Auto) 2.5 TH/MM3 Monocytes # (Auto) 0.7 TH/MM3 Eosinophils # (Auto) 0.2 TH/MM3 Basophils # (Auto) 0.1 TH/MM3 CBC Comment DIFF FINAL Differential Comment Prothrombin Time 11.7 SEC Prothromb Time International 1.1 RATIO Ratio Activated Partial 28.6 SEC Thromboplast Time Sodium Level 140 MEQ/L Potassium Level 3.6 MEQ/L Chloride Level 103 MEQ/L Carbon Dioxide Level 28.8 MEQ/L Anion Gap 8 MEQ/L Blood Urea Nitrogen 31 MG/DL Creatinine 1.37 MG/DL Estimat Glomerular Filtration 52 ML/MIN Rate Random Glucose 81 MG/DL Lactic Acid Level 1.1 mmol/L Calcium Level 8.4 MG/DL Phosphorus Level 3.9 MG/DL Magnesium Level 1.6 MG/DL Total Bilirubin 0.5 MG/DL Aspartate Amino Transf 50 U/L (AST/SGOT) Alanine Aminotransferase 19 U/L (ALT/SGPT) Alkaline Phosphatase 88 U/L Troponin I 7.53 NG/ML Total Protein 6.2 GM/DL Albumin 3.0 GM/DL Assessment and Plan Problem List: (1) Acute respiratory failure with hypoxia (2) SIRS (systemic inflammatory response syndrome) (3) History of ventricular tachycardia (4) NSTEMI (non-ST elevated myocardial infarction) (5) Chronic kidney disease, stage III (moderate) (6) Chronic systolic heart failure (7) Dyslipidemia (8) Hypertension (9) Peripheral vascular disease (10) Peripheral neuropathy (11) Coronary artery disease Assessment and Plan 1) Elevation of troponins, will plan for cardiac catheterization in the morning to assure recent intervention is patent 2) Continue diuresis 3) Will plan on changing Lovenox dose (DVT prevention) to heparin drip 4) NPO after midnight Problem Qualifiers (1) Peripheral neuropathy: Qualified Code: G62.9 - Peripheral polyneuropathy (2) Coronary artery disease: Qualified Code: I25.10 - Coronary artery disease involving [place] coronary artery of [place] heart, angina presence unspecified Robert Murphy DO Jun 08, 2016 09:01
[2016-06-08] MEDS: ARTIFICIAL TEARS OPTH SOLN 15 ML BTL EACH EYE SCH ×3 (09:16→18:00)
[2016-06-08] MEDS: SODIUM CHLORIDE 0.9% FLUSH 5 ML FLUSH IV FLUSH SCH ×2 (09:16→20:40)
[2016-06-08 10:07] LABS: APTT (PATIENT) 29.6 SEC (24.3-30.1); PROTHROMBIN TIME - PATIENT 11.4 SEC (9.8-11.6)
[2016-06-08] MEDS: HEPARIN-D5W INJ 250 ML IV SCH (10:45)
[2016-06-08] MEDS ORDERED: HEPARIN SODIUM - IV 10,000 UNITS/10 ML VIAL IV PRN ×2 (15:15)
[2016-06-08 17:27] LABS: APTT (PATIENT) 32.9 SEC (24.3-30.1)
[2016-06-08 23:58] LABS: APTT (PATIENT) 38.2 SEC (24.3-30.1)
[2016-06-09] VITALS (14 sets, daily range): BP systolic 102–134; BP diastolic 57–84; PULSE 63–70; RESP 16–28; TEMP 98–99.1; O2SAT 90–95
[2016-06-09] MEDS: MORPHINE SULFATE 4 MG/ML INJ IV PRN ×8 (00:45→23:38)
[2016-06-09] MEDS: BUMETANIDE INJ 1 MG/4 ML VIAL IV PUSH SCH (02:44)
[2016-06-09] MEDS: CEFEPIME INJ 2,000 MG in SODIUM CHLORIDE 0.9% INJ 100 ML IV SCH ×2 (02:45→15:00)
[2016-06-09] MEDS: AZITHROMYCIN INJ 500 MG in SODIUM CHLOR 0.9% 250 ML INJ 250 ML IV SCH (02:45)
[2016-06-09] MEDS: CHLORHEXIDINE GLUCONATE 2 % 1 PACK (2 CLOTHS) TOP SCH (04:00)
[2016-06-09] MEDS: INSULIN ASPART SUPPLEMENTAL SCALE SQ SCH ×7 (04:00→23:39)
[2016-06-09] MEDS: RESP: ALBUTEROL 2.5 MG/IPRATROPIUM 0.5 MG NEB (SCH) INH ×4 (04:16→21:45)
[2016-06-09 05:52] LABS: HEMATOCRIT 26.3 % (39.0-51.0); MEAN CELL VOLUME 90.1 FL (80.0-100.0); MEAN CORPUSCULAR HGB CONC 34.4 % (32.0-36.0); PLATELET COUNT 154 TH/MM3 (150-450); RED BLOOD COUNT 2.92 MIL/MM3 (4.50-5.90); RED CELL DISTRIBUTION WIDTH 14.8 % (11.6-17.2); REVIEW FLAG FINAL; WHITE BLOOD COUNT 9.7 TH/MM3 (4.0-11.0)
[2016-06-09 05:56] LABS: PROTHROMBIN TIME - PATIENT 11.4 SEC (9.8-11.6)
[2016-06-09 06:09] LABS: BICARBONATE 27.9 MEQ/L (21.0-32.0); POTASSIUM 3.6 MEQ/L (3.5-5.1)
[2016-06-09] MEDS: HEPARIN-D5W INJ 250 ML IV SCH ×2 (06:49→21:29)
--- NOTE | 2016-06-09 07:14 | EKG ---
Date Performed: 06/07/2016 Time Performed: 22:27:42 PTAGE: 65 years EKG: ELECTRONIC ATRIAL PACEMAKER ELECTRONIC VENTRICULAR PACEMAKER ABNORMAL RHYTHM ECG Compared t o PREVIOUS TRACING atrial and ventricular pacing is now evident. PREVIOUS TRACIN 017 11.00 DOCTOR: Ernesto Simpson Interpretating Date/Time 06/09/2016 07:13:04
[2016-06-09] MEDS: TICAGRELOR 90 MG TAB PO SCH ×2 (09:00→20:44)
[2016-06-09] MEDS: ACETYLCYSTEINE 20% 6,000 MG/30 ML ORAL SOLN VIAL PO SCH (09:00)
[2016-06-09] MEDS: SODIUM CHLORIDE 0.9% FLUSH 5 ML FLUSH IV FLUSH SCH (09:00)
[2016-06-09] MEDS: LINEZOLID 600 MG TAB PO SCH ×2 (09:00→20:44)
[2016-06-09] MEDS: INSULIN DETEMIR 100 UNITS/ML VIAL SQ SCH ×2 (09:00→20:44)
--- NOTE | 2016-06-09 09:02 | PD.CARD.PN ---
Subjective Subjective Remarks No chest pain, no shortness of breath Objective Medications Current Medications Medications (Trade) Dose Ordered Sig/Lily Route Start Time Stop Time Status Last Admin (Zofran Inj) 4 mg Q6H PRN IV 06/07/16 04:30 Miscellaneous Information 1 Q361D XX 06/07/16 04:30 (Chlorhexidine 2% Cloth) 3 pack Taper DAILY@04 TOP 06/08/16 04:00 06/04/17 03:59 06/09/16 04:00 (Chlorhexidine 2% Cloth) 3 pack UNSCH PRN TOP 06/07/16 04:30 Bumetanide 1 mg 1 mg Q12H IV PUSH 06/07/16 15:00 06/09/16 02:44 Cefepime HCl 2000 mg/Sodium Chloride 100 ml @ 200 mls/hr Q12H IV 06/07/16 15:00 06/09/16 02:45 (Zithromax Inj/ NS 250 ml Inj) 250 ml @ 250 mls/hr Q24H IV 06/08/16 03:00 06/09/16 02:45 (D50w (Vial) Inj) 25 ml UNSCH PRN IV PUSH 06/07/16 04:30 (Glucagon Inj) 1 mg UNSCH PRN OTHER 06/07/16 04:30 (NovoLOG SUPPLEMENTAL SCALE) 1 Q4HR SQ 06/07/16 04:30 06/08/16 20:00 (Aspirin Chew) 81 mg DAILY CHEW 06/07/16 09:00 06/08/16 08:58 (Brilinta) 90 mg BID PO 06/07/16 09:00 06/08/16 20:39 (Coreg) 6.25 mg Q12HR PO 06/07/16 09:00 06/08/16 20:39 (Norvasc) 2.5 mg DAILY PO 06/07/16 09:00 06/08/16 08:59 (Cordarone) 200 mg DAILY PO 06/07/16 09:00 06/08/16 08:58 (Lipitor) 20 mg DAILY PO 06/07/16 09:00 06/08/16 08:58 (Neurontin) 300 mg TID PO 06/07/16 09:00 06/08/16 17:35 (Levemir Inj) 8 units Q12HR SQ 06/07/16 09:00 06/08/16 20:39 (NS Flush) 2 ml UNSCH PRN IV FLUSH 06/07/16 06:45 06/08/16 14:37 (NS Flush) 2 ml BID IV FLUSH 06/07/16 09:00 06/08/16 20:40 (Tylenol) 650 mg Q6H PRN PO 06/07/16 06:45 ([place]unningham 5-325 Mg) 1 tab Q4H PRN PO 06/07/16 06:45 06/08/16 22:35 (Morphine Inj) 2 mg Q2H PRN IV 06/07/16 06:45 06/09/16 07:33 (Protonix) 40 mg DAILY PO 06/07/16 09:00 06/08/16 08:58 (Tears Naturale Opth Soln) 1 drop TID EACH EYE 06/07/16 09:00 06/08/16 13:21 (Colace) 100 mg BID PO 06/07/16 09:00 06/08/16 20:39 (Senokot) 17.2 mg Q12H PRN PO 06/07/16 06:45 (Zyvox) 600 mg Q12HR PO 06/07/16 21:00 06/08/16 20:39 (Mucomyst 20% Liq) 600 mg BID PO 06/07/16 21:00 06/09/16 09:01 06/08/16 20:40 (Heparin Inj) 5,000 units UNSCH PRN IV 06/08/16 15:15 Heparin Sodium (Porcine) 2500 units 2,500 units UNSCH PRN IV 06/08/16 15:15 (Heparin-D5W Inj) 250 ml @ 0 mls/hr TITRATE IV 06/08/16 09:15 06/09/16 06:49 Vital Signs / I&O Vital Signs Date Time Temp Pulse Resp B/P Pulse Ox O2 Delivery O2 Flow Rate FiO2 06/09/16 08:37 94 Nasal Cannula 3.00 06/09/16 06:00 69 06/09/16 04:00 69 06/09/16 04:00 98.0 70 22 120/70 92 06/09/16 02:00 69 06/09/16 00:00 69 06/09/16 00:00 98.3 69 18 102/57 92 06/08/16 22:00 69 06/08/16 21:43 95 Nasal Cannula 3.00 06/08/16 20:00 71 06/08/16 20:00 98.0 71 20 124/60 92 06/08/16 18:00 69 06/08/16 16:20 97 Nasal Cannula 3.00 06/08/16 16:00 98.3 69 14 127/65 91 06/08/16 16:00 69 06/08/16 14:00 69 06/08/16 12:00 69 06/08/16 12:00 97.7 69 13 107/71 94 06/08/16 10:00 69 I/O 06/08/16 06/08/16 06/08/16 06/09/16 06/09/16 06/09/16 07:00 15:00 23:00 07:00 15:00 23:00 Intake Total 1249 ml 757 ml 565 ml 690 ml Output Total 400 ml 500 ml 200 ml 1050 ml Balance 849 ml 257 ml 365 ml -360 ml Intake Oral 480 ml 600 ml 480 ml 240 ml IV Total 769 ml 157 ml 85 ml 450 ml Output Urine Total 400 ml 500 ml 200 ml 1050 ml Physical Exam GENERAL: NAD, AAOx3 SKIN: Warm and dry. HEAD: Atraumatic. Normocephalic. EYES: Pupils equal and round. No scleral icterus. No injection or drainage. ENT: No nasal bleeding or discharge. Mucous membranes pink and moist. NECK: Trachea midline. No JVD. CARDIOVASCULAR: Regular rate and rhythm. RESPIRATORY: No accessory muscle use. Decreased breath sounds bilaterally GASTROINTESTINAL: Abdomen soft, non-tender, nondistended. Hepatic and splenic margins not palpable. MUSCULOSKELETAL: Extremities without clubbing, cyanosis, or edema. No obvious deformities. Bilateral heal ulcers with eschar NEUROLOGICAL: Awake and alert. No obvious cranial nerve deficits. Motor grossly within normal limits. Five out of 5 muscle strength in the arms and legs. Normal speech. PSYCHIATRIC: Appropriate mood and affect; insight and judgment normal. Laboratory Laboratory Tests Test 06/08/16 06/08/16 06/08/16 06/09/16 09:39 16:43 23:41 05:13 Prothrombin Time 11.4 SEC 11.4 SEC Prothromb Time International 1.0 RATIO 1.0 RATIO Ratio Activated Partial 29.6 SEC 32.9 SEC 38.2 SEC 39.0 SEC Thromboplast Time White Blood Count 9.7 TH/MM3 Red Blood Count 2.92 MIL/MM3 Hemoglobin 9.0 GM/DL Hematocrit 26.3 % Mean Corpuscular Volume 90.1 FL Mean Corpuscular Hemoglobin 31.0 PG Mean Corpuscular Hemoglobin 34.4 % Concent Red Cell Distribution Width 14.8 % Platelet Count 154 TH/MM3 Mean Platelet Volume 9.4 FL Sodium Level 140 MEQ/L Potassium Level 3.6 MEQ/L Chloride Level 103 MEQ/L Carbon Dioxide Level 27.9 MEQ/L Anion Gap 9 MEQ/L Blood Urea Nitrogen 31 MG/DL Creatinine 1.54 MG/DL Estimat Glomerular Filtration 45 ML/MIN Rate Random Glucose 103 MG/DL Calcium Level 8.2 MG/DL Assessment and Plan Problem List: (1) Acute respiratory failure with hypoxia (2) SIRS (systemic inflammatory response syndrome) (3) History of ventricular tachycardia (4) NSTEMI (non-ST elevated myocardial infarction) (5) Chronic kidney disease, stage III (moderate) (6) Chronic systolic heart failure (7) Dyslipidemia (8) Hypertension (9) Peripheral vascular disease (10) Peripheral neuropathy (11) Coronary artery disease Assessment and Plan 1) Mild increase in creatinine, will plan on cardiac catheterization tomorrow, patient in agreement 2) Elevation of troponins, will plan for cardiac catheterization in the morning to assure recent intervention is patent 3) Will hold diuresis 4) Will plan on changing Lovenox dose (DVT prevention) to heparin drip 5) NPO after midnight Problem Qualifiers (1) Peripheral neuropathy: Qualified Code: G62.9 - Peripheral polyneuropathy (2) Coronary artery disease: Qualified Code: I25.10 - Coronary artery disease involving [place] coronary artery of [place] heart, angina presence unspecified Robert Murphy DO Jun 09, 2016 09:02
--- NOTE | 2016-06-09 09:21 | HHI.CCPN ---
Subjective Remarks/Hospital Course 65-year-old male. Date of admission 06/07/2016. Past medical history includes recent heart catheterization 04/30/[address] Kan secondary to an inferior STEMI with PCI/MERE placed placed to the RCA and PDA. Left main was 30%. LAD was 40% proximal/80% diagonal. Left circumflex was 30%. EF was 20/5/30 percent. In [place] devices placed as well. Patient had prolonged intubation During this hospitalization developed V. tach as well and a dual-chamber defibrillator was placed by Dr. Yousif/DDD 70 on 05/27. Past medical history also includes coronary disease with 2 prior stents by the hypertension, diabetes,'s chronic systolic heart failure, peripheral vascular disease with a right femoropopliteal in situ saphenous vein revision [address] Mayes with thrombolytic colectomy to the popliteal artery and anterior and posterior tibial arteries. Patient presents to [facility] with acute onset of shortness of breath. Subjective: 06/09 Tmax 98.3. No acute events overnight. Patient denies any angina or shortness of breath. The patient continues on 3 L nasal cannula with O2 saturation of 95%. The patient remained nothing by mouth last evening for plan cardiac catheterization this a.m.. However was noted the patient's creatinine was slightly elevated to 1.5 from 1.3 yesterday. Plan today for gentle hydration IV fluids 50 cc/1 hour, will hold diuretics. Monitor serum creatinine with a plan for cardiac catheterization tomorrow morning. Patient also complained of bilateral leg pain, will increase pain medication strength. The patient is noted to have bilateral blackened heel secondary to peripheral vascular disease. The patient was previously seen by Dr. Contreras will reconsult for evaluation of patient's bilateral lower extremities. Objective Vital Signs Date Time Temp Pulse Resp B/P Pulse Ox O2 Delivery O2 Flow Rate FiO2 06/09/16 08:37 94 Nasal Cannula 3.00 06/09/16 06:00 69 06/09/16 04:00 98.0 22 120/70 06/07/16 05:25 40 Intake and Output 06/08/16 06/08/16 06/09/16 08:00 16:00 00:00 Intake Total 1249 ml 757 ml 565 ml Output Total 400 ml 500 ml 200 ml Balance 849 ml 257 ml 365 ml Result Diagram: 06/09/16 0513 06/09/16 0513 Other Results Microbiology Date/Time Procedure Status Source Growth 06/07/16 07:30 Legionella Antigen - Final Complete Urine Catheterized Urine PRESUMPTIVE NEGATIVE FOR LEGIONELLA P... 06/07/16 07:30 Streptococcus pneumoniae Antigen (M - Final Complete Urine Catheterized Urine PRESUMPTIVE NEGATIVE FOR STREPTOCOCCU... Imaging Last Impressions Chest X-Ray 06/07/16 0146 Signed Impressions: Service Date/Time: Tuesday, June 07, 2016 02:04 - CONCLUSION: Patchy non-consolidative infiltrates in the mid and lower lungs bilaterally. Edgar Mustafa MD Objective Remarks GENERAL: SKIN: Warm and dry. HEAD: Atraumatic. Normocephalic. EYES: Pupils equal and round. No scleral icterus. No injection or drainage. ENT: No nasal bleeding or discharge. Mucous membranes pink and moist. NECK: Trachea midline. No JVD. CARDIOVASCULAR: Regular rate and rhythm. RESPIRATORY: No accessory muscle use. Clear to auscultation. Breath sounds equal bilaterally. GASTROINTESTINAL: Abdomen soft, non-tender, nondistended. Hepatic and splenic margins not palpable. MUSCULOSKELETAL: Extremities without clubbing, cyanosis, or edema. Multiple noted previous toe partial amputations, left foot. Bilateral heels noted blackened with eschar. Unable to palpate B/L PT, and DP pulses, but dopplerable NEUROLOGICAL: Awake and alert. No obvious cranial nerve deficits. Motor grossly within normal limits. Five out of 5 muscle strength in the arms and legs. Normal speech. PSYCHIATRIC: Appropriate mood and affect; insight and judgment normal. Procedures Cardiac catheterization scheduled for 06/10/16 Urinary Catheter: No Vascular Central Line Catheter: No A/P Assessment and Plan Neuro/Psych: Peripheral neuropathy secondary to diabetes Continue Neurontin 300 mg by mouth 3 times a day for neuropathy. Acetaminophen for fever [place]/morphine for pain management, will increase [place] to 10/325mg CV: Chronic systolic heart failure EF 25-30% with mild LVH and diffuse hypokinesis Peripheral vascular disease - history of right femoropopliteal with in situ saphenous vein grafting with thrombectomy of popliteal artery/anterior posterior tibial arteries [address] Mayes Coronary artery disease recent PCI/drug-eluting stent to RCA/PDA 04/[address] Kan secondary to inferior STEMI Dual-chamber defibrillator placed 05/[address] Yousif. DDD/70 Hypertension Dyslipidemia Elevated troponin Cardiac consultation/Dr. Kan cardiac management Cycle troponins. Limited echo cardiogram to eval LV function pending Continue amiodarone 200 mg by mouth daily for history of V. tach Continue Brilinta 90 mg twice a day and aspirin 81 mg daily for heart stent Hold Bumex 1 mg IV twice a day on 06/09. Gentle hydration per cardiology , Dr. Murphy recommendations IV fluid 50 cc/ hour, 2/2 elevation in creatinine and planned cardiac catheterization Kilo 30 mg by mouth daily for dyslipidemia. Resume Coreg at 6.25 mg twice a day and Norvasc 2.5 mg by mouth daily for hypertension. On double dose at home. Cardiac catheterization schedule Dr. Murphy 06/10/16 Resp: Acute hypoxemic respiratory failure On nasal cannula 3 L/m O2 sat 95% Wean FiO2 as tolerated Chest x-ray reveals bilateral lower lobe infiltrates, slight improvement Bronchodilator therapy every 6 hours and as needed GI: Gastroesophageal reflux disease ADA diet. Protonix for GI prophylaxis. On Protonix home. Colace/as needed Senokot for bowel regimen : Cortez will be placed for accurate I's and O's in a critically ill patient Endo: Diabetes mellitus type 2 Hyperglycemia of critical illness On lispro 15 units daily at home. Sliding-scale insulin with Accu-Cheks every 4 hours to maintain euglycemia. Initiate insulin drip if unable to maintain tight euglycemic control Renal: Chronic kidney disease stage III. Creatinine slight elevation 1.5 from 1.3. Begin NS @ 50cc/hr Monitor urine output closely. Accurate I's and O's Heme: Leukocytosis Normocytic anemia Monitor CBC/CMP daily. Follow trends ID: Possible community-acquired pneumonia History of MRSA treated with Zyvox Day 2 cefepime/Zithromax. Zyvox 2/2 history of MRSA pneumonia in sputum Blood cultures 2, sputum and UA pending. Influenza pending. FEN: Replace electrolytes as clinically indicated MSK: Osteoarthritis PT evaluate and treat Access - Utilize peripheral IV. Central line if indicated Prophylaxis - GI - Protonix - DVT - SCD/Heparin infusion Critical Care: Level 3. I discussed with patient, SITE ACQUISITION MANAGER and Dr. Murphy at bedside. Physician Breonna Maldonado MD Jun 09, 2016 09:21
[2016-06-09] MEDS: SODIUM CHLOR 0.9% 1000 ML INJ 1,000 ML IV SCH (09:30)
[2016-06-09] MEDS: GABAPENTIN 300 MG CAP PO SCH ×3 (09:37→17:31)
[2016-06-09] MEDS: PANTOPRAZOLE SOD 40 MG DELAYED RELEASE TAB PO SCH (09:37)
[2016-06-09] MEDS: ATORVASTATIN 20 MG TAB PO SCH (09:38)
[2016-06-09] MEDS: AMIODARONE 200 MG TAB PO SCH (09:38)
[2016-06-09] MEDS: CARVEDILOL 6.25 MG TAB PO SCH ×2 (09:38→20:44)
[2016-06-09] MEDS: ASPIRIN 81 MG CHEW TAB CHEW SCH (09:38)
[2016-06-09] MEDS: DOCUSATE SODIUM 100 MG CAP PO SCH ×2 (09:38→20:44)
[2016-06-09] MEDS: amLODIPine BESYLATE 5 MG TAB PO SCH (09:38)
[2016-06-09] MEDS: ARTIFICIAL TEARS OPTH SOLN 15 ML BTL EACH EYE SCH ×3 (09:40→17:31)
[2016-06-09 12:35] LABS: APTT (PATIENT) 40.2 SEC (24.3-30.1)
[2016-06-09] MEDS ORDERED: HEPARIN-NS/PF INJ 500 ML ONE (13:07)
[2016-06-09] MEDS ORDERED: NITROGLYCERIN INJ 5 ML ONE (13:08)
[2016-06-09] MEDS ORDERED: VERAPAMIL HCL 5 MG/2 ML VIAL ONE (13:08)
[2016-06-09] MEDS ORDERED: HEPARIN SODIUM - IV 10,000 UNITS/10 ML VIAL ONE (13:08)
[2016-06-09] MEDS ORDERED: MIDAZOLAM HCL 2 MG/2 ML VIAL ONE (13:08)
[2016-06-09] MEDS ORDERED: MIDAZOLAM HCL 2 MG/2 ML VIAL IV ONE (13:30)
[2016-06-09] MEDS ORDERED: HEPARIN SODIUM - IV 10,000 UNITS/10 ML VIAL IV ONE ×2 (13:40→14:40)
[2016-06-09] MEDS ORDERED: TIROFIBAN INFUSION INJ 250 ML IV ONE (14:58)
[2016-06-09] MEDS ORDERED: IOHEXOL 350 MG/ML 100 ML BTL (for Cath Lab) OTHER ONE (15:00)
[2016-06-09] MEDS ORDERED: TIROFIBAN INFUSION 12.5 MG/NS 250 ML IV SCH (15:00)
[2016-06-09] MEDS ORDERED: TIROFIBAN BOLUS 5 MG/NS 100 ML IV ONE (15:05)
[2016-06-09] MEDS ORDERED: MISC INFORMATION XX ONE (15:30)
[2016-06-09] MEDS ORDERED: VERAPAMIL HCL 5 MG/2 ML VIAL IV PUSH ONE (15:42)
[2016-06-09] MEDS ORDERED: HEPARIN SODIUM - IV 10,000 UNITS/10 ML VIAL IART ONE (15:42)
--- NOTE | 2016-06-09 16:14 | MA ---
cc: DANY ABAD DATE 06/09/2016 Cardiovascular procedure DATE OF 1950 PROCEDURE PERFORMED 1. Left heart catheterization. 2. Selective right and left coronary angiography. 3. Left ventricle pressure recordings. 4. POBA to stent thrombosis of the right coronary artery. INDICATION [id number] IA / heart failure. APPROACH Right transradial. DESCRIPTION OF PROCEDURE Consent signed. The patient was brought into the cardiac radiographer cardiac catheterization in fasting state. The right wrist was prepped and draped in sterile fashion. Using 1% lidocaine and a micropuncture kit a 6-[place] sheath was inserted into the right radial artery. Antispasmodic cocktail given. Then selective right and left angiography was performed with a JR-4 and JL-3.5 diagnostic catheters. Angiography was taken in multiple views. Then the JR diagnostic catheter was introduced to the left ventricle over a wire. Pressures were recorded followed by pullback. The patient had late stent thrombosis of the distal right coronary artery stent. We engaged the right coronary artery with a JR-4 guide. Additional IV heparin was given for anticoagulation. A long 300 mm Choice PT wire over a balloon was used to cross the thrombosed stent, followed by pre dilation with a 1.5 balloon followed by a 2.5, a 3.0 and 3.5 and 4.0 balloons. The balloons were inflated to high atmospheres. Final angiographic views revealed 10% residual thrombus. However, there was CATALINA III flow. Thus procedure was terminated. The patient tolerated the procedure well without complications. Estimated blood loss less than 30 mL. Total contrast used 150 mL. The right wrist access site was closed with a TR band. RESULTS Left ventricle. The left ventricle pressure was 75/13 with an LVEDP of 14. The aortic pressure was 90/47 with a mean of 64. There was no gradient upon pullback from the left ventricle to aorta. ANGIOGRAPHIC RESULTS 1. Right coronary artery is a dominant vessel. It is 100% occluded right at the stent which is in the distal segment of the right coronary artery. 2. Left main. Calcified. It has a 40-50% lesion distally and has CATALINA III flow. 3. LAD is a transapical vessel. It has minimal luminal irregularities throughout. There is a stent in the mid segment of the LAD which has 70% ISR. The rest of the vessel is diffusely diseased with CATALINA III flow. The LAD has three diagonal vessels which are small and patent. 4. The left circumflex artery has a 70% lesion at its ostium. It has CATALINA III flow. OM1 and OM2 are small vessels. OM3 is the big vessel. It is going all the way to the lateral wall. CONCLUSION 1. Successful POBA to the distal right coronary artery. 2. Severe three-vessel CAD with a diseased LAD, diseased circumflex and stented right coronary artery. RECOMMENDATIONS The patient's presented with an non-ST elevation myocardial infarction in the setting of a thrombosed right coronary artery stent which was placed about 6 weeks ago. He reports being compliant with medical therapy. However, this is questionable. The patient continues to present with thrombosed stents. My recommendation at this time given the left main disease, the LAD disease and continued thrombosis on his stents, to consult CT surgery for bypass surgery for CABG. The patient has three-vessel and has a poor LV systolic function and is diabetic. I have talk to Dr. Langley who is going see him today. In the meantime we will continue aggressive medical management for coronary artery disease. Continue aspirin. Will start Aggrastat. Continue statin, beta blockers and FORTINO inhibitors as tolerated by blood pressure. D/C Larisa in preparation for CABG. MD LEILA Vargas/STEW /2:16 PM /2:53 PM DARCIE
[2016-06-09] MEDS: ACETAMINOPHEN/HYDROcodone 325 MG/5 MG TAB PO PRN ×2 (16:57→21:30)
--- NOTE | 2016-06-09 17:34 | PD.CAR.PN ---
CVT Progress Note Subjective/Hospital Course: Patient seen Full consult dictated Patient is patent in situ vein graft on the right leg and foot is nice and warm Dorsalis pedis and posterior tibial pulses by Doppler bilateral Bilateral heel ulcers informed with dry eschars which are result simply of compression and is a classic pressure ulcers of patients who one prolonged bed rest We will consult podiatry for evaluation and possible excision of the same Objective: Vital Signs Date Time Temp Pulse Resp B/P Pulse Ox O2 Delivery O2 Flow Rate FiO2 06/09/16 16:01 69 06/09/16 12:00 98.0 69 24 121/84 94 06/09/16 12:00 69 06/09/16 10:00 69 06/09/16 09:44 20 06/09/16 08:37 94 Nasal Cannula 3.00 06/09/16 08:00 98.5 69 22 119/61 90 06/09/16 08:00 69 06/09/16 06:00 69 06/09/16 04:00 69 06/09/16 04:00 98.0 70 22 120/70 92 06/09/16 02:00 69 06/09/16 00:00 69 06/09/16 00:00 98.3 69 18 102/57 92 06/08/16 22:00 69 06/08/16 21:43 95 Nasal Cannula 3.00 06/08/16 20:00 71 06/08/16 20:00 98.0 71 20 124/60 92 06/08/16 18:00 69 Labs: Laboratory Tests Test 06/09/16 12:00 Activated Partial 40.2 SEC Thromboplast Time (24.3-30.1) Result Diagram: 06/09/1651206/09/16512 (1) Acute respiratory failure with hypoxia (2) SIRS (systemic inflammatory response syndrome) (3) History of ventricular tachycardia (4) NSTEMI (non-ST elevated myocardial infarction) (5) Chronic kidney disease, stage III (moderate) (6) Chronic systolic heart failure (7) Dyslipidemia (8) Hypertension (9) Peripheral vascular disease (10) Peripheral neuropathy (11) Coronary artery disease Problem Qualifiers (1) Peripheral neuropathy: Qualified Code: G62.9 - Peripheral polyneuropathy (2) Coronary artery disease: Qualified Code: I25.10 - Coronary artery disease involving [place] coronary artery of [place] heart, angina presence unspecified Jazarevic,Slobodan MD Jun 09, 2016 17:34
[2016-06-09] MEDS ORDERED: VERAPAMIL HCL 5 MG/2 ML VIAL OTHER ONE (18:00)
[2016-06-09] MEDS ORDERED: NITROGLYCERIN 1000 MCG/5 ML VIAL OTHER ONE (18:00)
--- NOTE | 2016-06-09 20:38 | MB ---
cc: KEVIN FELTON MD DATE OF CONSULTATION 06/09/[address] Felton / surgery REASON FOR CONSULTATION Peripheral vascular disease, bilateral heel ulcers, coronary artery disease. HISTORY OF THE PRESENT ILLNESS This unfortunate 65-year-old gentleman is known to me from many previous admissions. About year and half ago the patient presented with ischemic right foot as a result of a femoral-popliteal bypass done elsewhere, actually at the [facility]. The bypass had clotted off shortly after being placed and I saw the patient in followup because at the time there was no other vascular surgeon to see him at [facility]. The patient underwent femoral to distal posterior tibial bypass with in situ vein. This preserved his foot and bypass is now still open. The patient now comes with two dry heel eschars, question arises about nature of these. PAST MEDICAL HISTORY Complex includes: 1. Severe coronary artery disease. 2. Previous myocardial infarctions. 3. And now a [id number] HI at this admission and multiple stentings and cardiac manipulations. 4. Diabetes mellitus. 5. Chronic renal failure. 6. Hypoparathyroidism. 7. Anemia. 8. Hypertension. 9. And tobacco abuse. PAST SURGICAL HISTORY Surgical history is that of: 1. Femoral to distal in situ vein bypass on the right leg. \ 2. Dual-chamber pacemaker defibrillator. 3. Inguinal hernia repair. 4. Coronary artery catheterization with Impella device. 5. And additional studies. MEDICATIONS Can be found in the chart. SOCIAL HISTORY The patient drinks socially and is smoking about a pack a day of cigarettes continuously. PHYSICAL EXAMINATION GENERAL: Reveals a 65-year-old gentleman, awake and alert, oriented. HEENT: Normocephalic. No trauma to the head. Pupils equally reactive. Extraocular muscles intact. NECK: Bilateral carotid pulses. Bilateral carotid bruits worked up in the past. CHEST: Bilateral breath sounds decreased over both lung wolfe consistent with COPD of moderate degree. HEART: Regular rhythm. ABDOMEN: Soft. Active bowel sounds. EXTREMITIES: The patient now has palpable femoral pulses bilateral. He has a strong Dopplerable pulse in his in situ vein graft and Dopplerable dorsalis pedis and posterior tibial bilaterally. Feet are warm. Indeed about 3 cm in diameter dry, necrotic eschars on both heels. These are not related to vascular inflow but rather to due to local ischemic effect of compression. This is usually seen in patients with prolonged bed rest and especially in the nursing homes where the heel is hitting the mattress continuously. The patient due to his diabetes has decreased sensation and due to neuropathy is fairly anesthetic in both feet, therefore he did not notice this developing until it was too late. So the patient has dry eschars on both heels. Right now there is no drainage present, so there is no urgency to treat this. However, at some point this will have to be debrided and we will consult podiatry for the same. Blood inflow is adequate and nothing needs to be done about this. Thank you much for the referral. Critical care time 40 minutes. Kevin Felton SJ/KK /4:31 PM /7:17 PM
[2016-06-09] MEDS: SODIUM CHLORIDE 0.9% FLUSH 5 ML FLUSH IVF SCH (20:44)
[2016-06-09] MEDS: SODIUM CHLORIDE 0.9% FLUSH 5 ML FLUSH IVF PRN (23:38)
[2016-06-10] VITALS (13 sets, daily range): BP systolic 104–124; BP diastolic 56–85; PULSE 69; RESP 17–25; TEMP 98–98.6; O2SAT 91–100
[2016-06-10] MEDS: AZITHROMYCIN INJ 500 MG in SODIUM CHLOR 0.9% 250 ML INJ 250 ML IV SCH (03:25)
[2016-06-10] MEDS: CEFEPIME INJ 2,000 MG in SODIUM CHLORIDE 0.9% INJ 100 ML IV SCH ×2 (03:25→18:15)
[2016-06-10] MEDS: CHLORHEXIDINE GLUCONATE 2 % 1 PACK (2 CLOTHS) TOP SCH (03:26)
[2016-06-10] MEDS: MORPHINE SULFATE 4 MG/ML INJ IV PRN ×7 (03:27→23:44)
[2016-06-10] MEDS: INSULIN ASPART SUPPLEMENTAL SCALE SQ SCH ×6 (03:28→23:44)
[2016-06-10] MEDS: RESP: ALBUTEROL 2.5 MG/IPRATROPIUM 0.5 MG NEB (SCH) INH ×4 (03:49→19:48)
[2016-06-10] MEDS: SODIUM CHLOR 0.9% 1000 ML INJ 1,000 ML IV SCH (04:33)
[2016-06-10 04:42] LABS: HEMATOCRIT 25.2 % (39.0-51.0); MEAN CELL VOLUME 91.6 FL (80.0-100.0); MEAN CORPUSCULAR HEMOGLOBIN 31.2 PG (27.0-34.0); MEAN CORPUSCULAR HGB CONC 34.1 % (32.0-36.0); PLATELET COUNT 171 TH/MM3 (150-450); RED BLOOD COUNT 2.75 MIL/MM3 (4.50-5.90); RED CELL DISTRIBUTION WIDTH 14.9 % (11.6-17.2); REVIEW FLAG FINAL; WHITE BLOOD COUNT 7.9 TH/MM3 (4.0-11.0)
[2016-06-10 04:57] LABS: APTT (PATIENT) 40.2 SEC (24.3-30.1)
[2016-06-10 05:07] LABS: ANION GAP 11 MEQ/L (5-15); AST (GOT) 47 U/L (15-37); BICARBONATE 24.6 MEQ/L (21.0-32.0); BLOOD UREA NITROGEN 29 MG/DL (7-18); CHLORIDE 105 MEQ/L (98-107); GLOMERULAR FILTRATION RATE 49 ML/MIN (>89); POTASSIUM 4.2 MEQ/L (3.5-5.1); SODIUM (NA) 141 MEQ/L (136-145)
[2016-06-10 05:11] LABS: ALKALINE PHOSPHATASE 123 U/L (45-117); ALT (GPT) 27 U/L (12-78); TOTAL BILIRUBIN ADULT 0.4 MG/DL (0.2-1.0)
--- NOTE | 2016-06-10 08:28 | HHI.CCPN ---
Subjective Remarks/Hospital Course 65-year-old male. Date of admission 06/07/2016. Past medical history includes recent heart catheterization 04/30/[address] Kan secondary to an inferior STEMI with PCI/MERE placed placed to the RCA and PDA. Left main was 30%. LAD was 40% proximal/80% diagonal. Left circumflex was 30%. EF was 20/5/30 percent. In [place] devices placed as well. Patient had prolonged intubation During this hospitalization developed V. tach as well and a dual-chamber defibrillator was placed by Dr. Yousif/DDD 70 on 05/27. Past medical history also includes coronary disease with 2 prior stents by the hypertension, diabetes,'s chronic systolic heart failure, peripheral vascular disease with a right femoropopliteal in situ saphenous vein revision [address] Mayes with thrombolytic colectomy to the popliteal artery and anterior and posterior tibial arteries. Patient presents to [facility] with acute onset of shortness of breath. Subjective: 06/09 Tmax 98.3. No acute events overnight. Patient denies any angina or shortness of breath. The patient continues on 3 L nasal cannula with O2 saturation of 95%. The patient remained nothing by mouth last evening for plan cardiac catheterization this a.m.. However was noted the patient's creatinine was slightly elevated to 1.5 from 1.3 yesterday. Plan today for gentle hydration IV fluids 50 cc/1 hour, will hold diuretics. Monitor serum creatinine with a plan for cardiac catheterization tomorrow morning. Patient also complained of bilateral leg pain, will increase pain medication strength. The patient is noted to have bilateral blackened heel secondary to peripheral vascular disease. The patient was previously seen by Dr. Contreras will reconsult for evaluation of patient's bilateral lower extremities. 06/10: The patient was evaluated and underwent left heart catheterization yesterday by Dr. Kan. The patient was noted to have thrombosis of his previously placed stents (6 weeks ago), noted stent thrombosis of RCA, questionable compliance of home medication regimen. Severe three-vessel coronary artery disease, cardiothoracic surgery consulted. The patient continues on heparin and Aggrastat infusions. Vascular surgery evaluated patient bilateral lower extremities, vessels patent, noted eschar bilateral heels-Podiatry consulted for wound management. The patient has a history of smoking up to 2 packs a day, the patient reports for the last 6 weeks post stent placement smokes 4 cigarettes per day, will order nicotine patch, and counseled on cessation of smoking. Creatinine today 1.4, IV 0.9 NaCl fluid discontinued. Objective Vital Signs Date Time Temp Pulse Resp B/P Pulse Ox O2 Delivery O2 Flow Rate FiO2 06/10/16 06:00 69 06/10/16 05:43 20 06/10/16 04:00 98.6 108/64 100 06/09/16 19:50 Nasal Cannula 6.00 06/07/16 05:25 40 Intake and Output 06/09/16 06/09/16 06/10/16 08:00 16:00 00:00 Intake Total 690 ml 880 ml 314 ml Output Total 1050 ml 725 ml 200 ml Balance -360 ml 155 ml 114 ml Result Diagram: 06/10/16 0432 06/10/16 0423 Other Results Microbiology Date/Time Procedure Status Source Growth 06/09/16 11:55 Stool Occult Blood (IRLANDA) - Final Complete Stool Stool HEMOCCULT NEGATIVE Imaging Last Impressions Chest X-Ray 06/07/16 0146 Signed Impressions: Service Date/Time: Tuesday, June 07, 2016 02:04 - CONCLUSION: Patchy non-consolidative infiltrates in the mid and lower lungs bilaterally. Edgar Mustafa MD Objective Remarks GENERAL: SKIN: Warm and dry. HEAD: Atraumatic. Normocephalic. EYES: Pupils equal and round. No scleral icterus. No injection or drainage. ENT: No nasal bleeding or discharge. Mucous membranes pink and moist. NECK: Trachea midline. No JVD. CARDIOVASCULAR: Regular rate and rhythm. RESPIRATORY: No accessory muscle use. Clear to auscultation. Breath sounds equal bilaterally. GASTROINTESTINAL: Abdomen soft, non-tender, nondistended. Hepatic and splenic margins not palpable. MUSCULOSKELETAL: Extremities without clubbing, cyanosis, or edema. Multiple noted previous toe partial amputations, right foot. Bilateral heels noted blackened with eschar. Unable to palpate B/L PT, and DP pulses, but dopplerable NEUROLOGICAL: Awake and alert. No obvious cranial nerve deficits. Motor grossly within normal limits. Five out of 5 muscle strength in the arms and legs. Normal speech. PSYCHIATRIC: Appropriate mood and affect; insight and judgment normal. A/P Assessment and Plan Neuro/Psych: Peripheral neuropathy secondary to diabetes Anxiety Continue Neurontin 300 mg by mouth 3 times a day for neuropathy. Acetaminophen for fever [place]/morphine for pain management, [place] to 10/325mg Xanax 0.5 mg every 8 hours when necessary CV: Chronic systolic heart failure EF 25-30% with mild LVH and diffuse hypokinesis Peripheral vascular disease - history of right femoropopliteal with in situ saphenous vein grafting with thrombectomy of popliteal artery/anterior posterior tibial arteries [address] Mayes Coronary artery disease recent PCI/drug-eluting stent to RCA/PDA 04/[address] Kan secondary to inferior STEMI Dual-chamber defibrillator placed 05/[address] Yousif. DDD/70 Hypertension Dyslipidemia Elevated troponin Stent thrombosis RCA Severe CAD three-vessel LAD, circumflex, stented RCA Cardiac consultation/Dr. Kan cardiac management S/P left heart catheterization 06/09/16-left main 4050 percent occlusion, left circumflex 70% occlusion,thrombosed RCA Cycle troponins. Limited echocardiogram to eval LV function pending Continue amiodarone 200 mg by mouth daily for history of V. tach Continue Brilinta 90 mg twice a day and aspirin 81 mg daily for heart stent Resume Bumex 1 mg IV twice a day Kilo 30 mg by mouth daily for dyslipidemia. Resume Coreg at 6.25 mg twice a day and Norvasc 2.5 mg by mouth daily for hypertension. On double dose at home. S/P catheterization 06/09-severe three-vessel coronary artery disease Cardiothoracic surgery consult to await recommendations regarding CABG Heparin and Aggrastat infusions Resp: Acute hypoxemic respiratory failure On nasal cannula 3 L/m O2 sat 95% Wean FiO2 as tolerated Chest x-ray reveals bilateral lower lobe infiltrates, slight improvement Bronchodilator therapy every 6 hours and as needed GI: Gastroesophageal reflux disease ADA diet. Protonix for GI prophylaxis. On Protonix home. Colace/as needed Senokot for bowel regimen : [place] will be placed for accurate I's and O's in a critically ill patient Endo: Diabetes mellitus type 2 Hyperglycemia of critical illness On lispro 15 units daily at home. Sliding-scale insulin with Accu-Cheks every 4 hours to maintain euglycemia. Initiate insulin drip if unable to maintain tight euglycemic control Renal: Chronic kidney disease stage III. Creatinine 1.4 Discontinued NS @ 50cc/hr Monitor urine output closely. Accurate I's and O's Heme: Leukocytosis Normocytic anemia Monitor CBC/CMP daily. Follow trends ID: Possible community-acquired pneumonia History of MRSA treated with Zyvox Day 3 cefepime/Zithromax. Zyvox 2/2 history of MRSA pneumonia in sputum Blood cultures 2, sputum and UA NGTD Influenza negative FEN: Replace electrolytes as clinically indicated MSK: Osteoarthritis PT evaluate and treat Access - Utilize peripheral IV. Central line if indicated Prophylaxis - GI - Protonix - DVT - SCD/Heparin infusion Critical Care: Level 3. 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 Kan Physician Breonna Maldonado MD Jun 10, 2016 08:28
[2016-06-10] MEDS: GABAPENTIN 300 MG CAP PO SCH ×3 (09:00→18:00)
[2016-06-10] MEDS: CARVEDILOL 6.25 MG TAB PO SCH ×2 (09:00→20:09)
[2016-06-10] MEDS: PANTOPRAZOLE SOD 40 MG DELAYED RELEASE TAB PO SCH (09:00)
[2016-06-10] MEDS: ASPIRIN 81 MG CHEW TAB PO SCH (09:00)
[2016-06-10] MEDS: TICAGRELOR 90 MG TAB PO SCH ×2 (09:00→20:09)
[2016-06-10] MEDS: AMIODARONE 200 MG TAB PO SCH (09:00)
[2016-06-10] MEDS: DOCUSATE SODIUM 100 MG CAP PO SCH ×2 (09:00→20:11)
[2016-06-10] MEDS: SODIUM CHLORIDE 0.9% FLUSH 5 ML FLUSH IVF SCH ×2 (09:00→20:11)
[2016-06-10] MEDS: amLODIPine BESYLATE 5 MG TAB PO SCH (09:00)
[2016-06-10] MEDS: LINEZOLID 600 MG TAB PO SCH ×2 (09:00→20:09)
[2016-06-10] MEDS: NICOTINE 14 MG/24 HR PATCH TD SCH (09:00)
[2016-06-10] MEDS: BUMETANIDE INJ 1 MG/4 ML VIAL IV PUSH SCH ×2 (09:00→18:00)
[2016-06-10] MEDS: ATORVASTATIN 20 MG TAB PO SCH (09:00)
[2016-06-10] MEDS: ARTIFICIAL TEARS OPTH SOLN 15 ML BTL EACH EYE SCH ×3 (09:00→15:26)
[2016-06-10] MEDS: INSULIN DETEMIR 100 UNITS/ML VIAL SQ SCH ×2 (09:00→20:10)
[2016-06-10] MEDS: ACETAMINOPHEN/HYDROcodone 325 MG/5 MG TAB PO PRN ×2 (09:40→13:52)
[2016-06-10 11:12] LABS: APTT (PATIENT) 35.7 SEC (24.3-30.1)
--- NOTE | 2016-06-10 11:40 | ECHLIM ---
Study Study Date:06/09/2016 STUDY CONCLUSIONS SUMMARY - Left ventricle: The cavity size was moderately dilated. Wall thickness was increased in a pattern of mild LVH. There was concentric hypertrophy. Systolic function was severely reduced. The estimated ejection fraction was in the range of 20% to 25%. Akinesis of the inferior myocardium; consistent with infarction. Mild hypokinesis of the apical myocardium. - Aortic valve: Valve area: 2.24cm^2(VTI). Valve area: 2.08cm^2 (Vmax). - Mitral valve: Mild to moderate regurgitation. - Left atrium: The atrium was mildly dilated. - Tricuspid valve: Moderate regurgitation. - Pulmonary arteries: PA peak pressure: 54mm Hg (S). If LV function is below 40, please consider prescribing an ACEI or ARB or document rationale for non-use. PROCEDURE DATA STUDY STATUS: Elective. Procedure: Transthoracic echocardiography. Image quality was good. Scanning was performed from the parasternal, apical, and subcostal acoustic windows. Study completion: The patient tolerated the procedure well. Transthoracic echocardiography. M-mode, complete 2D, complete spectral Doppler, and color Doppler. Height: Height: 71in. Weight: Weight: 208.6lb. Body mass index: BMI: 29.1kg/m^2. Body surface area: BSA: 2.15m^2. Patient status: Inpatient. CARDIAC ANATOMY LEFT VENTRICLE: The cavity size was moderately dilated. Wall thickness was increased in a pattern of mild LVH. There was concentric hypertrophy. Systolic function was severely reduced. The estimated ejection fraction was in the range of 20% to 25%. Regional wall motion abnormalities: Akinesis of the inferior myocardium; consistent with infarction. Mild hypokinesis of the apical myocardium. AORTIC VALVE: Trileaflet. Doppler: There was no stenosis. No significant regurgitation. Valve area: 2.24cm^2(VTI). Indexed valve area: 1.04cm^2/m^2 (VTI). Valve area: 2.08cm^2 (Vmax). Indexed valve area: 0.97cm^2/m^2 (Vmax). Mean gradient: 4mm Hg (S). MITRAL VALVE: The valve appears to be grossly normal. Doppler: There was no evidence for stenosis. Mild to moderate regurgitation. Peak gradient: 4mm Hg (D). LEFT ATRIUM: The atrium was mildly dilated. RIGHT VENTRICLE: The cavity size was normal. PULMONIC VALVE: Not well visualized. Doppler: There was no evidence for stenosis. Trace regurgitation. TRICUSPID VALVE: The valve appears to be grossly normal. Doppler: There was no evidence for stenosis. Moderate regurgitation. PERICARDIUM: There was no pericardial effusion. Patient weight: 208.6lb _Ejection fraction:_ 65-75% _Fractional shortening:_ 32% up to 5Kg 5-11.5Kg 11.6-22.9Kg 23-45Kg 45-57Kg Aortic Root 7-13 <17 13-22 17-27 17-27 LA diam 6-13 <23 24-38 33-47 37-40 RVID 10-17 7-15 7-15 7-18 8-17 LVIDd 12-22 <32 24-38 33-47 37-40 LVPW 2-4 3-6 5-7 6-8 7-8 IVS 2-4 3-6 5-7 6-8 7-8 BASIC MEASUREMENTS ADULT NORMAL Left ventricle LV internal dimension, ED, chordal *62.6 mm 43-52 level, PLAX LV internal dimension, ES, chordal *54.8 mm 23-38 level, PLAX Fractional shortening, chordal level, *12 % >29 PLAX LV posterior wall thickness, ED 12.8 mm IVS/LVPW ratio, ED 0.96 <1.3 Volume, ED, MOD, 1-plane 280 ml Volume, ES, MOD, 1-plane 228 ml Ejection fraction, MOD, 1-plane 19 % Stroke volume, MOD, 1-plane 52 ml Volume index, ED, MOD, 1-plane 130 ml/m^2 Volume index, ES, MOD, 1-plane 106 ml/m^2 Stroke index, MOD, 1-plane 24.2 ml/m^2 Volume, ED, MOD, 2-plane 246 ml Volume, ES, MOD, 2-plane 192 ml Ejection fraction, MOD, 2-plane 22 % Stroke volume, MOD, 2-plane 54 ml Volume index, ED, MOD, 2-plane 114 ml/m^2 Volume index, ES, MOD, 2-plane 89 ml/m^2 Stroke index, MOD, 2-plane 25.1 ml/m^2 Ventricular septum Septal thickness, ED 12.3 mm Aortic valve Leaflet separation 22 mm 15-26 Aorta Root diameter, ED 37 mm Left atrium Anterior-posterior dimension 45 mm Anterior-posterior dimension index 2.09 cm/m^2 <2.2 BASIC MEASUREMENTS ADULT NORMAL Aortic valve Leaflet separation 22 mm 15-26 DOPPLER MEASUREMENTS ADULT NORMAL Main pulmonary artery Pressure, S *54 mm Hg =30 Aortic valve Peak velocity, S 132 cm/s Mean velocity, S 93.4 cm/s VTI, S 24.3 cm Mean gradient, S 4 mm Hg Valve area, VTI 2.24 cm^2 Valve area index, VTI 1.04 cm^2/m^2 Valve area, Vmax 2.08 cm^2 Valve area index, Vmax 0.97 cm^2/m^2 Mitral valve Peak E-wave velocity 104 cm/s Peak A-wave velocity 44.4 cm/s Deceleration time *134 ms 150-230 Peak gradient, D 4 mm Hg Peak E/A ratio 2.3 Tricuspid valve Regurgitant peak velocity 292 cm/s Peak RV-RA gradient, S 34 mm Hg Maximal regurgitant velocity 292 cm/s Systemic veins Estimated CVP 20 mm Hg Right ventricle RV pressure, S *55 mm Hg <30 Pulmonic valve Peak velocity, S 45.9 cm/s LEGEND: Mean values are shown as u=mean value. Asterisk (*) mckeon values outside specified normal range. Prepared and signed by Robert Murphy [id number]
--- NOTE | 2016-06-10 12:55 | PD.WOU.CON ---
Patient Intake Chief Complaint Bilateral heel pressure wounds Consult Requested by Dr. Yost Reason for Consult Evaluate him possible treatment of bilateral heel pressure wounds Primary Care Physician No Primary Care Physician History of Present Illness Patient is a 65-year-old with history of peripheral vascular disease who underwent peripheral bypass surgery at [facility]. He was recently admitted for cardiac event and requires cardiac surgery. He smoked until May 01 of this year. He is developed heel pressure wounds bilaterally which are unstageable. I was asked see the patient concerning the wounds Coded Allergies: No Known Allergies (Unverified , 06/08/16) Preferred Language to Discuss: Telugu Barriers to Learning: None Teaching Method: Discussion Vital Signs Date Time Temp Pulse Resp B/P Pulse Ox O2 Delivery O2 Flow Rate FiO2 06/10/16 12:31 98.3 69 18 111/85 95 06/10/16 12:30 69 06/10/16 09:45 93 Nasal Cannula 4.00 06/10/16 06:00 69 06/10/16 05:43 20 06/10/16 04:00 69 06/10/16 04:00 98.6 69 18 108/64 100 06/10/16 02:00 69 06/10/16 00:00 98.4 69 17 118/59 91 06/10/16 00:00 69 06/09/16 23:03 20 06/09/16 22:00 63 06/09/16 20:00 99.1 69 16 123/62 95 06/09/16 20:00 69 06/09/16 19:50 95 Nasal Cannula 6.00 06/09/16 18:00 69 06/09/16 16:01 69 06/09/16 16:00 98.1 69 28 134/73 94 Pain scale used: 0-10 numeric scale Pain score: 0 Medications Current Medications IV Flush 2 ml 2 ml UNSCH PRN IVF FLUSH AFTER USING IV ACCESS Last administered on 06/07/16 03:39; Start 06/07/16 at 02:00; Stop 06/07/16 at 04:26; Status DC Nitroglycerin/ Dextrose (Nitroglycerin-Dextrose Inj) 250 ml @ 0 mls/hr TITRATE ONCE IV Last administered on 06/07/16 02:07; Start 06/07/16 at 02:00; Stop 02/13 at 02:01; Status DC Lorazepam 0.5 mg 0.5 mg ONCE ONCE IV PUSH Last administered on 06/07/16 02:07 ; Start 06/07/16 at 02:00; Stop 06/07/16 at 02:01; Status DC Cefepime HCl 2000 mg/Sodium Chloride 100 ml @ 200 mls/hr ONCE ONCE IV Last administered on 06/07/16 05:27; Start 06/07/16 at 03:00; Stop 06/07/16 at 03:29 ; Status DC Azithromycin/ Sodium Chloride (Zithromax Inj/ NS 250 ml Inj) 250 ml @ 250 mls/ hr ONCE ONCE IV Last administered on 06/07/16 03:38; Start 06/07/16 at 03:00 ; Stop 06/07/16 at 03:59; Status DC Bumetanide (Bumex Inj) 1 mg ONCE ONCE IV PUSH Last administered on 06/07/16 03:39; Start 06/07/16 at 03:00; Stop 06/07/16 at 03:01; Status DC Lorazepam (Ativan Inj) 0.5 mg ONCE ONCE IV PUSH Last administered on 03:39; Start 06/07/16 at 03:00; Stop 06/07/16 at 03:01; Status DC Aspirin (Aspirin Chew) 162 mg ONCE ONCE CHEW Last administered on 06/07/16 03 :45; Start 06/07/16 at 03:45; Stop 06/07/16 at 03:46; Status DC IV Flush (NS Flush) 2 ml UNSCH PRN IV FLUSH FLUSH AFTER USING IV ACCESS; Start 06/07/16 at 04:30; Stop 06/07/16 at 06:54; Status DC IV Flush (NS Flush) 2 ml BID IV FLUSH ; Start 06/07/16 at 09:00; Stop 06/07/16 at 09:00; Status DC Acetaminophen (Tylenol) 650 mg Q6H PRN PO PAIN 1-10 AND/OR FEVER >101F; Start 06/07/16 at 04:30; Stop 06/07/16 at 06:54; Status DC Pantoprazole Sodium (Protonix Inj) 40 mg DAILY IV ; Start 06/07/16 at 09:00; Stop 06/07/16 at 09:00; Status DC Ondansetron HCl (Zofran Inj) 4 mg Q6H PRN IV NAUSEA OR VOMITING; Start at 04:30 Albuterol Sulfate (Albuterol Neb) 2.5 mg Q2HR NEB PRN INH SOB/WHEEZING; Start 06/07/16 at 04:30 Enoxaparin Sodium (Lovenox Inj) 40 mg Q24H SQ Last administered on 06/07/16 11 :16; Start 06/07/16 at 09:00; Stop 06/08/16 at 09:08; Status DC Miscellaneous Information 1 Q361D XX ; Start 06/07/16 at 04:30 Chlorhexidine Gluconate (Chlorhexidine 2% Cloth) 3 pack Taper DAILY@04 TOP Last administered on 06/10/16 03:26; Start 06/08/16 at 04:00; Stop 06/04/17 at 03:59 Chlorhexidine Gluconate (Chlorhexidine 2% Cloth) 3 pack UNSCH PRN TOP HYGIENIC CARE; Start 06/07/16 at 04:30 Bumetanide 1 mg 1 mg Q12H IV PUSH Last administered on 06/09/16 02:44; Start 06/07/16 at 15:00; Stop 06/09/16 at 09:05; Status DC Cefepime HCl 2000 mg/Sodium Chloride 100 ml @ 200 mls/hr Q12H IV Last administered on 06/10/16 03:25; Start 06/07/16 at 15:00 Azithromycin/ Sodium Chloride (Zithromax Inj/ NS 250 ml Inj) 250 ml @ 250 mls/ hr Q24H IV Last administered on 06/10/16 03:25; Start 06/08/16 at 03:00 Dextrose (D50w (Vial) Inj) 25 ml UNSCH PRN IV PUSH HYPOGLYCEMIA-SEE COMMENTS; Start 06/07/16 at 04:30 Glucagon (Glucagon Inj) 1 mg UNSCH PRN OTHER HYPOGLYCEMIA-SEE COMMENTS; Start 06/07/16 at 04:30 Insulin Aspart (NovoLOG SUPPLEMENTAL SCALE) 1 Q4HR SQ Last administered on 06/09 20:44; Start 06/07/16 at 04:30 Aspirin (Aspirin Chew) 81 mg DAILY CHEW Last administered on 06/09/16 09:38; Start 06/07/16 at 09:00; Stop 06/09/16 at 15:32; Status DC Ticagrelor (Brilinta) 90 mg BID PO Last administered on 06/10/16 09:00; Start 06/07/16 at 09:00 Carvedilol (Coreg) 6.25 mg Q12HR PO Last administered on 06/10/16 09:00; Start 06/07/16 at 09:00 Amlodipine Besylate (Norvasc) 2.5 mg DAILY PO Last administered on 06/10/16 09 :00; Start 06/07/16 at 09:00 Amiodarone HCl (Cordarone) 200 mg DAILY PO Last administered on 06/10/16 09:00 ; Start 06/07/16 at 09:00 Atorvastatin Calcium (Lipitor) 20 mg DAILY PO Last administered on 06/10/16 09 :00; Start 06/07/16 at 09:00 Gabapentin (Neurontin) 300 mg TID PO Last administered on 06/10/16 09:00; Start 06/07/16 at 09:00 Insulin Detemir (Levemir Inj) 8 units Q12HR SQ Last administered on 06/10/16 09:00; Start 06/07/16 at 09:00 IV Flush (NS Flush) 2 ml UNSCH PRN IV FLUSH FLUSH AFTER USING IV ACCESS Last administered on 06/08/16 14:37; Start 06/07/16 at 06:45; Stop 06/09/16 at 15:31 ; Status DC IV Flush (NS Flush) 2 ml BID IV FLUSH Last administered on 06/08/16 20:40; Start 06/07/16 at 09:00; Stop 06/09/16 at 15:31; Status DC Acetaminophen (Tylenol) 650 mg Q6H PRN PO PAIN 1-10 AND/OR FEVER >101F; Start 06/07/16 at 06:45 Acetaminophen/ Hydrocodone Bitart (Natchez 5-325 Mg) 1 tab Q4H PRN PO PAIN SCALE 1 TO 5 Last administered on 06/08/16 22:35; Start 06/07/16 at 06:45; Stop 06/09/16 at 09:28; Status DC Morphine Sulfate (Morphine Inj) 2 mg Q2H PRN IV PAIN SCALE 6 TO 10 Last administered on 06/10/16 05:30; Start 06/07/16 at 06:45 Pantoprazole Sodium (Protonix) 40 mg DAILY PO Last administered on 06/10/16 09 :00; Start 06/07/16 at 09:00 Artificial Tears (Tears Naturale Opth Soln) 1 drop TID EACH EYE Last administered on 06/09/16 17:31; Start 06/07/16 at 09:00 Ondansetron HCl (Zofran Inj) 4 mg Q6H PRN IV NAUSEA OR VOMITING; Start at 06:45; Stop 06/07/16 at 06:54; Status DC Docusate Sodium (Colace) 100 mg BID PO Last administered on 06/10/16 09:00; Start 06/07/16 at 09:00 Sennosides (Senokot) 17.2 mg Q12H PRN PO CONSTIPATION; Start 06/07/16 at 06:45 Albuterol/ Ipratropium (Duoneb Neb) 1 ampule Q6HR NEB INH Last administered on 06/10/16 09:38; Start 06/07/16 at 10:00 Miscellaneous Information 1 Q361D XX ; Start 06/07/16 at 06:45; Stop 06/07/16 at 06:54; Status DC Chlorhexidine Gluconate (Chlorhexidine 2% Cloth) 3 pack Taper DAILY@04 TOP ; Start 06/08/16 at 04:00; Stop 06/08/16 at 04:00; Status DC Chlorhexidine Gluconate (Chlorhexidine 2% Cloth) 3 pack UNSCH PRN TOP HYGIENIC CARE; Start 06/07/16 at 06:45; Stop 06/07/16 at 06:54; Status DC Linezolid (Zyvox) 600 mg Q12HR PO Last administered on 06/10/16 09:00; Start 06/07/16 at 21:00 Acetylcysteine 600 mg 600 mg BID PO Last administered on 06/08/16 20:40; Start 06/07/16 at 21:00; Stop 06/09/16 at 09:01; Status DC Sodium Bicarbonate/ Sterile Water (Sodium Bicarbonate 8.4% Inj/Sterile Water For Inj) 1,000 ml @ 100 mls/hr Q10H IV Last administered on 06/07/16 14:49; Start 06/07/16 at 15:00; Stop 06/08/16 at 00:59; Status DC Iohexol (Omnipaque 350 Inj) 50 ml STK-MED ONCE IV ; Start 06/07/16 at 15:22; Stop 06/07/16 at 15:29; Status DC Heparin Sodium (Porcine) (Heparin Inj) 5,000 units UNSCH PRN IV APTT LESS THAN 25; Start 06/08/16 at 15:15 Heparin Sodium (Porcine) 2500 units 2,500 units UNSCH PRN IV APTT 25 TO 39; Start 06/08/16 at 15:15 Heparin Sodium/ Dextrose 250 ml @ 0 mls/hr TITRATE IV Last administered on 06/09 21:29; Start 06/08/16 at 09:15 Sodium Chloride (NS 1000 ml Inj) 1,000 ml @ 50 mls/hr Q20H IV Last administered on 06/09/16 09:30; Start 06/09/16 at 10:00; Stop 06/10/16 at 07:45 ; Status DC Acetaminophen/ Hydrocodone Bitart 2 tab 2 tab Q4H PRN PO PAIN SCALE 6 TO 10 Last administered on 06/09/16 21:30; Start 06/09/16 at 10:45 Heparin Sodium/ Sodium Chloride (Heparin-NS/Pf Inj) 500 ml @ As Directed STK- MED ONCE .ROUTE Last administered on 06/09/16 13:07; Start 06/09/16 at 13:07; Stop 06/09/16 at 13:08; Status DC Midazolam HCl (Versed Inj) 2 mg STK-MED ONCE .ROUTE Last administered on 13:08; Start 06/09/16 at 13:08; Stop 06/09/16 at 13:09; Status DC Fentanyl Citrate (fentaNYL INJ) 100 mcg STK-MED ONCE .ROUTE Last administered on 06/09/16 13:08; Start 06/09/16 at 13:08; Stop 06/09/16 at 13:09; Status DC Verapamil HCl (Isoptin Inj) 5 mg STK-MED ONCE .ROUTE Last administered on 13:08; Start 06/09/16 at 13:08; Stop 06/09/16 at 13:09; Status DC Heparin Sodium (Porcine) 71689 units 10,000 units STK-MED ONCE .ROUTE Last administered on 06/09/16 13:08; Start 06/09/16 at 13:08; Stop 06/09/16 at 13:09 ; Status DC Nitroglycerin 5 ml @ As Directed STK-MED ONCE .ROUTE Last administered on 13:08; Start 06/09/16 at 13:08; Stop 06/09/16 at 13:09; Status DC Tirofiban/Sodium Chloride (Aggrastat Infusion Inj) 250 ml @ As Directed STK- MED ONCE IV Last administered on 06/09/16 14:58; Start 06/09/16 at 14:58; Stop 06/09/16 at 14:59; Status DC Aspirin (Aspirin Chew) 81 mg DAILY PO Last administered on 06/10/16 09:00; Start 06/10/16 at 09:00 IV Flush (NS Flush) 2 ml UNSCH PRN IVF FLUSH AFTER USING IV ACCESS Last administered on 06/09/16 23:38; Start 06/09/16 at 15:30 IV Flush (NS Flush) 2 ml BID IVF Last administered on 06/10/16 09:00; Start at 21:00 Miscellaneous Information 1 ONCE ONCE XX ; Start 06/09/16 at 15:30; Stop at 15:31; Status DC Iohexol (OMNIPAQUE 350 INJ (Integration Lead)) 100 ml STK-MED ONCE OTHER ; Start at 15:00; Stop 06/09/16 at 15:47; Status DC Fentanyl Citrate (fentaNYL INJ) 50 mcg ONCE ONCE IV ; Start 06/09/16 at 13:29; Stop 06/09/16 at 17:40; Status DC Midazolam HCl (Versed Inj) 2 mg ONCE ONCE IV ; Start 06/09/16 at 13:30; Stop at 17:40; Status DC Verapamil HCl (Isoptin Inj) 2.5 mg ONCE ONCE IV PUSH ; Start 06/09/16 at 15:42 ; Stop 06/09/16 at 15:43; Status Cancel Nitroglycerin (Nitroglycerin Inj) 200 mcg ONCE ONCE OTHER ; Start 06/09/16 at 18:00; Stop 06/09/16 at 18:01; Status DC Heparin Sodium (Porcine) (Heparin Inj) 2,500 units ONCE ONCE IART ; Start 06/09 at 15:42; Stop 06/09/16 at 17:49; Status DC Verapamil HCl (Isoptin Inj) 2.5 mg ONCE ONCE OTHER ; Start 06/09/16 at 18:00; Stop 06/09/16 at 18:01; Status DC Heparin Sodium (Porcine) (Heparin Inj) 5,000 units ONCE ONCE IV ; Start at 13:40; Stop 06/09/16 at 17:53; Status DC Heparin Sodium (Porcine) 2000 units 2,000 units ONCE ONCE IV ; Start 06/09/16 at 14:40; Stop 06/09/16 at 17:53; Status DC Tirofiban/Sodium Chloride 100 ml @ 1,200 mls/hr BOLUS ONCE IV ; Start at 15:05; Stop 06/09/16 at 18:06; Status DC Tirofiban/Sodium Chloride (Aggrastat Infusion Inj) 250 ml @ 18 mls/hr [id number] IV Last administered on 06/10/16 03:26; Start 06/09/16 at 15:00; Stop at 09:00; Status DC Alprazolam (Xanax) 0.5 mg Q8H PRN PO ANXIETY; Start 06/10/16 at 08:00 Nicotine (Habitrol 14 Mg Patch.24 Hr) 1 patch DAILY TD Last administered on 09:00; Start 06/10/16 at 09:00 Miscellaneous Information 1 HS TD ; Start 06/10/16 at 21:00 Bumetanide (Bumex Inj) 1 mg BID@09,18 IV PUSH Last administered on 06/10/16 09 :00; Start 06/10/16 at 09:00 Past, Family & Social History Past Medical History Endocrine: REPORTS HX OF: Diabetes mellitus Cardiovascular: REPORTS HX OF: Peripheral vascular dz Past Surgical History Cardiovascular: REPORTS HX OF: Other cardiac surgery Review of Systems Cardiovascular: COMPLAINS OF: Heart Disease, Swelling legs / ankles Neurological: COMPLAINS OF: Numbness/tingling, Changes in sensation Wound Assessment Vascular Assessment R Dorsails Pedis: Doppler L Dorsails Pedis: Doppler R Posterior Tibial: Doppler L Posterior Tibial: Doppler Temperature of Left Extremity: Cool Sensation of Left Extremity: Diminished Sensation of Right Extremity: Diminished Wound Information - Wound One Wound Location: left heel Wound Type: Pressure Ulcer Classification: Other Pressure Staging: Necrotic Exudate: None Exudate Type: N/A Debridement: No Fibrin Amount: None Granulation Tissue Color: None Granulation Tissue Texture: N/A Exposed: No exposed bone, muscle, tendon Eschar: Yes Odor: No Periwound Appearance: FINDINGS: Normal Wound Two Wound Location: right heel Wound Type: Pressure Ulcer Classification: Other Pressure Staging: Necrotic Exudate: None Exudate Type: N/A Debridement: No Granulation Tissue Color: None Granulation Tissue Texture: N/A Exposed: No exposed bone, muscle, tendon Eschar: Yes Odor: No Periwound Appearance: FINDINGS: Normal Lab and Radiology Results Laboratory Laboratory Tests Test 06/09/16 06/10/16 05:13 04:32 White Blood Count 9.7 TH/MM3 7.9 TH/MM3 Red Blood Count 2.92 MIL/MM3 2.75 MIL/MM3 Hemoglobin 9.0 GM/DL 8.6 GM/DL Hematocrit 26.3 % 25.2 % Mean Corpuscular Volume 90.1 FL 91.6 FL Mean Corpuscular Hemoglobin 31.0 PG 31.2 PG Mean Corpuscular Hemoglobin 34.4 % 34.1 % Concent Red Cell Distribution Width 14.8 % 14.9 % Platelet Count 154 TH/MM3 171 TH/MM3 Mean Platelet Volume 9.4 FL 9.4 FL Laboratory Tests Test 06/09/16 06/10/16 05:13 04:23 Sodium Level 140 MEQ/L 141 MEQ/L Potassium Level 3.6 MEQ/L 4.2 MEQ/L Chloride Level 103 MEQ/L 105 MEQ/L Carbon Dioxide Level 27.9 MEQ/L 24.6 MEQ/L Anion Gap 9 MEQ/L 11 MEQ/L Blood Urea Nitrogen 31 MG/DL 29 MG/DL Creatinine 1.54 MG/DL 1.45 MG/DL Estimat Glomerular Filtration 45 ML/MIN 49 ML/MIN Rate Random Glucose 103 MG/DL 144 MG/DL Calcium Level 8.2 MG/DL 8.1 MG/DL Phosphorus Level 3.9 MG/DL Magnesium Level 2.0 MG/DL Total Bilirubin 0.4 MG/DL Aspartate Amino Transf 47 U/L (AST/SGOT) Alanine Aminotransferase 27 U/L (ALT/SGPT) Alkaline Phosphatase 123 U/L Total Protein 6.1 GM/DL Albumin 2.7 GM/DL Microbiology Date/Time Procedure Status Source Growth 06/09/16 11:55 Stool Occult Blood (IRLANDA) - Final Complete Stool Stool HEMOCCULT NEGATIVE Radiology Last Impressions Chest X-Ray 06/08/16 0000 Signed Impressions: Service Date/Time: Wednesday, June 08, 2016 05:17 - CONCLUSION: Persistent but improving bilateral acinar infiltrates. Edgar Mustafa MD Lower Extremity Ultrasound 06/07/16 0000 Signed Impressions: Service Date/Time: Tuesday, June 07, 2016 11:05 - CONCLUSION: No DVT. Florencio Jules MD CT Angiography 06/07/16 0000 Signed Impressions: Service Date/Time: Tuesday, June 07, 2016 15:18 - CONCLUSION: 1. No pulmonary embolus. 2. Very small, bilateral pleural effusions and patchy bilateral airspace opacities. 3. Mildly enlarged mediastinal lymph nodes, nonspecific. 4. Several nodules up to 2 cm in size of the left adrenal gland, incompletely characterized but statistically most likely adenomas. There is a cyst of the left kidney. 5. Coronary artery calcification. Florencio Hamilton MD Assessment/Plan Problem List: (1) Diabetes mellitus Status: Acute (2) Peripheral vascular disease Status: Acute (3) Pressure ulcer of left heel, unstageable Status: Acute (4) Pressure ulcer of right heel, unstageable Status: Acute Patient instructions PLAN: Stop wearing heel protectors. Keep pillows under her legs so heels rest off the bed. Educated the patient to keep the area dry. No baths or showers. He is not to sit with his heels resting on the floor. Eventually the necrotic eschar will come loose. No need for surgical debridement at this time. Problem Qualifiers (1) Diabetes mellitus: Qualified Code: E11.8 - Type 2 diabetes mellitus with complication, with long- term current use of insulin Shan Navarro DPM Jun 10, 2016 12:55
--- NOTE | 2016-06-10 12:56 | PD.CARD.PN ---
Subjective Subjective Remarks No chest pain, no shortness of breath Objective Medications Current Medications Medications (Trade) Dose Ordered Sig/Lily Route Start Time Stop Time Status Last Admin (Zofran Inj) 4 mg Q6H PRN IV 06/07/16 04:30 Miscellaneous Information 1 Q361D XX 06/07/16 04:30 (Chlorhexidine 2% Cloth) 3 pack Taper DAILY@04 TOP 06/08/16 04:00 06/04/17 03:59 06/10/16 03:26 Chlorhexidine Gluconate 3 pack 3 pack UNSCH PRN TOP 06/07/16 04:30 Cefepime HCl 2000 mg/Sodium Chloride 100 ml @ 200 mls/hr Q12H IV 06/07/16 15:00 06/10/16 03:25 (Zithromax Inj/ NS 250 ml Inj) 250 ml @ 250 mls/hr Q24H IV 06/08/16 03:00 06/10/16 03:25 (D50w (Vial) Inj) 25 ml UNSCH PRN IV PUSH 06/07/16 04:30 (Glucagon Inj) 1 mg UNSCH PRN OTHER 06/07/16 04:30 (NovoLOG SUPPLEMENTAL SCALE) 1 Q4HR SQ 06/07/16 04:30 06/09/16 20:44 (Brilinta) 90 mg BID PO 06/07/16 09:00 06/10/16 09:00 (Coreg) 6.25 mg Q12HR PO 06/07/16 09:00 06/10/16 09:00 (Norvasc) 2.5 mg DAILY PO 06/07/16 09:00 06/10/16 09:00 (Cordarone) 200 mg DAILY PO 06/07/16 09:00 06/10/16 09:00 (Lipitor) 20 mg DAILY PO 06/07/16 09:00 06/10/16 09:00 (Neurontin) 300 mg TID PO 06/07/16 09:00 06/10/16 09:00 (Levemir Inj) 8 units Q12HR SQ 06/07/16 09:00 06/10/16 09:00 (Tylenol) 650 mg Q6H PRN PO 06/07/16 06:45 (Morphine Inj) 2 mg Q2H PRN IV 06/07/16 06:45 06/10/16 05:30 (Protonix) 40 mg DAILY PO 06/07/16 09:00 06/10/16 09:00 (Tears Naturale Opth Soln) 1 drop TID EACH EYE 06/07/16 09:00 06/09/16 17:31 (Colace) 100 mg BID PO 06/07/16 09:00 06/10/16 09:00 (Senokot) 17.2 mg Q12H PRN PO 06/07/16 06:45 (Zyvox) 600 mg Q12HR PO 06/07/16 21:00 06/10/16 09:00 (Heparin Inj) 5,000 units UNSCH PRN IV 06/08/16 15:15 Heparin Sodium (Porcine) 2500 units 2,500 units UNSCH PRN IV 06/08/16 15:15 (Heparin-D5W Inj) 250 ml @ 0 mls/hr TITRATE IV 06/08/16 09:15 06/09/16 21:29 (Tullos 5-325 Mg) 2 tab Q4H PRN PO 06/09/16 10:45 06/09/16 21:30 (Aspirin Chew) 81 mg DAILY PO 06/10/16 09:00 06/10/16 09:00 (NS Flush) 2 ml UNSCH PRN IVF 06/09/16 15:30 06/09/16 23:38 (NS Flush) 2 ml BID IVF 06/09/16 21:00 06/10/16 09:00 (Xanax) 0.5 mg Q8H PRN PO 06/10/16 08:00 (Habitrol 14 Mg Patch.24 Hr) 1 patch DAILY TD 06/10/16 09:00 06/10/16 09:00 Miscellaneous Information 1 HS TD 06/10/16 21:00 (Bumex Inj) 1 mg BID@09,18 IV PUSH 06/10/16 09:00 06/10/16 09:00 Vital Signs / I&O Vital Signs Date Time Temp Pulse Resp B/P Pulse Ox O2 Delivery O2 Flow Rate FiO2 06/10/16 12:31 98.3 69 18 111/85 95 06/10/16 12:30 69 06/10/16 09:45 93 Nasal Cannula 4.00 06/10/16 06:00 69 06/10/16 05:43 20 06/10/16 04:00 69 06/10/16 04:00 98.6 69 18 108/64 100 06/10/16 02:00 69 06/10/16 00:00 98.4 69 17 118/59 91 06/10/16 00:00 69 06/09/16 23:03 20 06/09/16 22:00 63 06/09/16 20:00 99.1 69 16 123/62 95 06/09/16 20:00 69 06/09/16 19:50 95 Nasal Cannula 6.00 06/09/16 18:00 69 06/09/16 16:01 69 06/09/16 16:00 98.1 69 28 134/73 94 I/O 06/09/16 06/09/16 06/09/16 06/10/16 06/10/16 06/10/16 07:00 15:00 23:00 07:00 15:00 23:00 Intake Total 690 ml 880 ml 314 ml 784 ml Output Total 1050 ml 725 ml 200 ml 450 ml Balance -360 ml 155 ml 114 ml 334 ml Intake Oral 240 ml 480 ml IV Total 450 ml 400 ml 314 ml 784 ml Output Urine Total 1050 ml 725 ml 200 ml 450 ml # Bowel Movements 0 Physical Exam GENERAL: NAD, AAOx3 SKIN: Warm and dry. HEAD: Atraumatic. Normocephalic. EYES: Pupils equal and round. No scleral icterus. No injection or drainage. ENT: No nasal bleeding or discharge. Mucous membranes pink and moist. NECK: Trachea midline. No JVD. CARDIOVASCULAR: Regular rate and rhythm. RESPIRATORY: No accessory muscle use. Decreased breath sounds bilaterally GASTROINTESTINAL: Abdomen soft, non-tender, nondistended. Hepatic and splenic margins not palpable. MUSCULOSKELETAL: Extremities without clubbing, cyanosis, or edema. No obvious deformities. Bilateral heal ulcers with eschar. Right radial no hematoma, neurovascular intact distally NEUROLOGICAL: Awake and alert. No obvious cranial nerve deficits. Motor grossly within normal limits. Five out of 5 muscle strength in the arms and legs. Normal speech. PSYCHIATRIC: Appropriate mood and affect; insight and judgment normal. Laboratory Laboratory Tests Test 06/09/16 06/09/16 06/10/16 06/10/16 20:43 20:55 04:23 04:32 Lab Scanned Report Lab Reports - Other [id number] Activated Partial 33.0 SEC 40.2 SEC Thromboplast Time Sodium Level 141 MEQ/L Potassium Level 4.2 MEQ/L Chloride Level 105 MEQ/L Carbon Dioxide Level 24.6 MEQ/L Anion Gap 11 MEQ/L Blood Urea Nitrogen 29 MG/DL Creatinine 1.45 MG/DL Estimat Glomerular Filtration 49 ML/MIN Rate Random Glucose 144 MG/DL Calcium Level 8.1 MG/DL Phosphorus Level 3.9 MG/DL Magnesium Level 2.0 MG/DL Total Bilirubin 0.4 MG/DL Aspartate Amino Transf 47 U/L (AST/SGOT) Alanine Aminotransferase 27 U/L (ALT/SGPT) Alkaline Phosphatase 123 U/L Total Protein 6.1 GM/DL Albumin 2.7 GM/DL White Blood Count 7.9 TH/MM3 Red Blood Count 2.75 MIL/MM3 Hemoglobin 8.6 GM/DL Hematocrit 25.2 % Mean Corpuscular Volume 91.6 FL Mean Corpuscular Hemoglobin 31.2 PG Mean Corpuscular Hemoglobin 34.1 % Concent Red Cell Distribution Width 14.9 % Platelet Count 171 TH/MM3 Mean Platelet Volume 9.4 FL Test 06/10/16 10:52 Activated Partial 35.7 SEC Thromboplast Time Assessment and Plan Problem List: (1) Acute respiratory failure with hypoxia (2) SIRS (systemic inflammatory response syndrome) (3) History of ventricular tachycardia (4) NSTEMI (non-ST elevated myocardial infarction) (5) Chronic kidney disease, stage III (moderate) (6) Chronic systolic heart failure (7) Dyslipidemia (8) Hypertension (9) Peripheral vascular disease (10) Peripheral neuropathy (11) Coronary artery disease Assessment and Plan 1) Catheterization by Dr. Kan, opened occluded RCA stents but concern for thrombus so placed on Aggrastat over night 2) Concern for LAD disease and RCA disease with multiple stents, Dr. Kan spoke to Dr. Langley about consideration of CABG 3) CT surgery unable to do CABG on Brilinta, will discuss further with Dr. Kan about stopping with stents placed 6-8 weeks ago... most likely ok if on heparin drip 4) Dr. Kan will return tomorrow for further management Problem Qualifiers (1) Peripheral neuropathy: Qualified Code: G62.9 - Peripheral polyneuropathy (2) Coronary artery disease: Qualified Code: I25.10 - Coronary artery disease involving [place] coronary artery of [place] heart, angina presence unspecified Robert Murphy DO Jun 10, 2016 12:56
--- NOTE | 2016-06-10 14:18 | MB ---
cc: AL DANG MD DATE OF CONSULTATION 06/10/2016 IDENTIFYING DATA 65-year-old male. DATE OF 1950 HISTORY OF PRESENT ILLNESS The patient apparently presented to the emergency room with shortness of breath, hypoxemia, found to also meet SIRS criteria with respiratory rate greater than 20, pCO2 greater than 32, white cell count greater than 12,000. He was found to have a non-STEMI and was taken to the radiographer cardiac catheterization by Dr. Kan yesterday. The patient had percutaneous intervention to the right coronary artery, to the distal portion, found to have severe three-vessel disease with diseased LAD, diseased circ and stented RCA. Just recently his troponins were 7.53. He was recently discharged from the hospital in April for an inferior STEMI, underwent PCI with drug-eluting stent to the RCA and the PDA on April 30, 2016. Left main disease of 30%, LAD at that time was 40%, proximal 80% diagonal, left circ 30, EF was 25-30%. He used the Impella at that time for the high-risk PCI. The patient was also intubated postoperatively, also developed some post V-tach. Dual-chamber pacemaker [employer] was placed by Dr. Yousif on 05/27 for AV block, V-tach. We were consulted to evaluate for coronary artery bypass grafting to the LAD and the RCA. Please let it be known the patient has been on Brilinta and he had his last dose this morning. He also was given Aggrastat which was stopped at 09:00 this morning and also heparin drip. PAST MEDICAL HISTORY Coronary artery disease with prior stenting; his last one was on 04/30/2016 and he just underwent PCI yesterday by Dr. Kan. 2-D echo is pending. OTHER PAST MEDICAL HISTORY 1. Peripheral vascular disease. 2. Chronic systolic heart failure. 3. Hypertension. 4. Diabetes mellitus. 5. Chronic kidney disease stage III. 6. Hyperparathyroidism. 7. Anemia. 8. Tobacco abuse. PAST SURGICAL HISTORY 1. Multiple coronary stenting with Impella device, drug-eluting stent to the RCA and the PDA. 2. Bilateral inguinal hernia repair. 3. Right fem-pop revision with probable colectomy to the popliteal artery, anterior-posterior tibial arteries. 4. Appendectomy. FAMILY HISTORY Multiple family members with MIs in their 60s and 70s. SOCIAL HISTORY Occasional alcohol. 3/4-pack of tobacco per day. No IV drug use or illicit drugs. REVIEW OF SYSTEMS IN GENERAL: No night sweats, fever, heat and cold intolerance. SKIN: No psoriasis, itching or hives. HEENT: No blurred vision, hearing loss. RESPIRATORY: Positive for recent shortness of breath. CARDIOVASCULAR: As above in the HPI. He also complains of lower extremity edema, claudication. GASTROINTESTINAL: No diarrhea, vomiting. GENITOURINARY: No burning, frequency, urgency. 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 ENDOCRINOLOGY: Positive for diabetes. PHYSICAL EXAMINATION VITAL SIGNS: On exam blood pressure 108/64, heart rate of 70, O2 sat 93 on 4 liters. GENERAL: The patient is awake, alert, in no acute distress. HEENT: Normocephalic, atraumatic. Pupils equal, reactive. Oral mucosa pink, moist. NECK: Supple. No JVD. CHEST: Well-healed incision left upper chest wall. CARDIOVASCULAR: Heart sounds S1-S2. Regular rate and rhythm. No rubs or gallops. LUNGS: Clear to auscultation. No wheezes, rales or rhonchi. ABDOMEN: Soft, nontender. No masses or organomegaly. EXTREMITIES: Reveal Doppler pulses. He does have necrotic areas to both of his heels which has been seen and evaluated by Dr. Tafoya who performed his recent right fem-popliteal revision with probable colectomy to the popliteal artery, anterior-posterior tibial arteries. LABORATORY FINDINGS She is currently shows hemoglobin of 8.6, hematocrit of 25, white cell count of 7.9, platelet count of 171. Sodium 141, potassium 4.2, BUN of 29, creatinine 1.45. INR 1.0. Urine is unremarkable. MRSA negative. IMPRESSION 1. This is a 65-year-old male with readmission with non-STEMI status post PCI to the distal RCA by Dr. Kan. He has been on Brilinta at home, had his last dose this morning. We will need to discuss with Dr. Kan timing to stop the Brilinta which will need to be stopped five days prior to surgery. Procedures, alternatives and risks will be discussed with the patient at that time. He will need a bypass graft to the LAD and the RCA. He can be continued on the heparin which we discontinued 4 hours prior to coronary bypass surgery. 2. History of chronic systolic heart failure with EF of 25-30%. Has history of BiV ICD, [employer] that was placed in April 2016. 3. He has leukocytosis with admission with SIRS. One of the blood cultures shows a gram-negative variable 1/4 bottles. He is currently on Zithromax, Zyvox and cefepime. Critical care managing at this time. 4. Initial hypoxemia has improved. He is now on nasal cannula. 5. Chronic kidney disease, Stage II. 6. Severe peripheral vascular disease with prior right fem-pop revision, now with bilateral necrotic heels, vascular surgery following. We will continue to follow. We will start placing preoperative orders but will need to know timing to discontinue the Brilinta from Dr. Kan. Dictated by: MAXIME Jennings Al GERARDSSB /9:56 AM /1:14 PM
--- NOTE | 2016-06-10 15:16 | PD.CAR.PN ---
CVT Progress Note Subjective/Hospital Course: sts data discussed with pt RISK SCORES About the STS Risk Calculator Procedure: CAB Only Risk of Mortality: 3.65% Morbidity or Mortality: 33.715% Long Length of Stay: 18.568% Short Length of Stay: 19.682% Permanent Stroke: 1.443% Prolonged Ventilation: 23.243% DSW Infection: 2.601% Renal Failure: 13.505% Reoperation: 9.874% Objective: Vital Signs Date Time Temp Pulse Resp B/P Pulse Ox O2 Delivery O2 Flow Rate FiO2 06/10/16 14:00 69 06/10/16 12:31 98.3 69 18 111/85 95 06/10/16 12:30 69 06/10/16 09:45 93 Nasal Cannula 4.00 06/10/16 06:00 69 06/10/16 05:43 20 06/10/16 04:00 69 06/10/16 04:00 98.6 69 18 108/64 100 06/10/16 02:00 69 06/10/16 00:00 98.4 69 17 118/59 91 06/10/16 00:00 69 06/09/16 23:03 20 06/09/16 22:00 63 06/09/16 20:00 99.1 69 16 123/62 95 06/09/16 20:00 69 06/09/16 19:50 95 Nasal Cannula 6.00 06/09/16 18:00 69 06/09/16 16:01 69 06/09/16 16:00 98.1 69 28 134/73 94 Labs: Laboratory Tests Test 06/10/16 06/10/16 06/10/16 04:23 04:32 10:52 Activated Partial 40.2 SEC 35.7 SEC Thromboplast Time (24.3-30.1) (24.3-30.1) Sodium Level 141 MEQ/L (136-145) Potassium Level 4.2 MEQ/L (3.5-5.1) Chloride Level 105 MEQ/L (98-107) Carbon Dioxide Level 24.6 MEQ/L (21.0-32.0) Anion Gap 11 MEQ/L (5-15) Blood Urea Nitrogen 29 MG/DL (7-18) Creatinine 1.45 MG/DL (0.60-1.30) Estimat Glomerular Filtration 49 ML/MIN (>89) Rate Random Glucose 144 MG/DL (74-106) Calcium Level 8.1 MG/DL (8.5-10.1) Phosphorus Level 3.9 MG/DL (2.5-4.9) Magnesium Level 2.0 MG/DL (1.5-2.5) Total Bilirubin 0.4 MG/DL (0.2-1.0) Aspartate Amino Transf 47 U/L (15-37) (AST/SGOT) Alanine Aminotransferase 27 U/L (12-78) (ALT/SGPT) Alkaline Phosphatase 123 U/L (45-117) Total Protein 6.1 GM/DL (6.4-8.2) Albumin 2.7 GM/DL (3.4-5.0) White Blood Count 7.9 TH/MM3 (4.0-11.0) Red Blood Count 2.75 MIL/MM3 (4.50-5.90) Hemoglobin 8.6 GM/DL (13.0-17.0) Hematocrit 25.2 % (39.0-51.0) Mean Corpuscular Volume 91.6 FL (80.0-100.0) Mean Corpuscular Hemoglobin 31.2 PG (27.0-34.0) Mean Corpuscular Hemoglobin 34.1 % Concent (32.0-36.0) Red Cell Distribution Width 14.9 % (11.6-17.2) Platelet Count 171 TH/MM3 (150-450) Mean Platelet Volume 9.4 FL (7.0-11.0) Result Diagram: 06/10/16 0432 06/10/16 0423 (1) Acute respiratory failure with hypoxia (2) SIRS (systemic inflammatory response syndrome) (3) History of ventricular tachycardia (4) NSTEMI (non-ST elevated myocardial infarction) (5) Chronic kidney disease, stage III (moderate) (6) Chronic systolic heart failure (7) Dyslipidemia (8) Hypertension (9) Peripheral vascular disease (10) Peripheral neuropathy (11) Coronary artery disease Problem Qualifiers (1) Peripheral neuropathy: Qualified Code: G62.9 - Peripheral polyneuropathy (2) Coronary artery disease: Qualified Code: I25.10 - Coronary artery disease involving [place] coronary artery of [place] heart, angina presence unspecified Nicole Lazar Jun 10, 2016 15:16
[2016-06-10] MEDS ORDERED: ceFAZolin 2 GM PREMIX 50 ML IV SCH (15:30)
[2016-06-10] MEDS ORDERED: CEFAZOLIN INJ 500 MG in SODIUM CHLORIDE 0.9% IRR BTL 500 ML IRRIGATION SCH (15:30)
[2016-06-10] MEDS ORDERED: INSULIN REGULAR (IV INFUSION) 100 UNITS in SODIUM CHLORIDE 0.9% INJ 100 ML IV SCH (15:30)
[2016-06-10] MEDS ORDERED: CHLORHEXIDINE GLUCONATE 4% SOLN 120 ML BTL TOPICAL SCH (15:30)
[2016-06-10] MEDS ORDERED: PAPAVERINE INJ 60 MG, NITROGLYCERIN INJ 100 MCG, DILTIAZEM INJ 100 MG in SODIUM CHLORID... IRRIGATION SCH (15:30)
[2016-06-10 19:42] LABS: APTT (PATIENT) 45.2 SEC (24.3-30.1)
[2016-06-10] MEDS: ALPRAZolam 0.5 MG TAB PO PRN (20:09)
--- NOTE | 2016-06-10 20:10 | PD.POD ---
Subjective Pain scale used: 0-10 numeric scale Pain score: 0 Past Med/Surg/Social History Past Medical History Endocrine: REPORTS HX OF: Diabetes mellitus Cardiovascular: REPORTS HX OF: Peripheral vascular dz Past Surgical History Cardiovascular: REPORTS HX OF: Other cardiac surgery Social History Smoking Status: Former Smoker Objective Vital Signs Vital Signs Date Time Temp Pulse Resp B/P Pulse Ox O2 Delivery O2 Flow Rate FiO2 06/10/16 18:28 69 06/10/16 16:23 98.0 69 22 104/56 96 06/10/16 16:23 69 06/10/16 14:52 22 06/10/16 14:00 69 06/10/16 13:35 22 06/10/16 12:31 98.3 69 18 111/85 95 06/10/16 12:30 69 06/10/16 09:45 93 Nasal Cannula 4.00 06/10/16 06:00 69 06/10/16 04:00 69 06/10/16 04:00 98.6 69 18 108/64 100 06/10/16 02:00 69 06/10/16 00:00 98.4 69 17 118/59 91 06/10/16 00:00 69 06/09/16 22:00 63 06/09/16 20:00 99.1 69 16 123/62 95 06/09/16 20:00 69 Coded Allergies: No Known Allergies (Unverified , 06/08/16) Assessment & Plan A/P BL heel eschars- stable, not infected. Patient was seen however a previous consultation by Dr. Navarro, Podiatry/ Wound Care Call was performed, I did not realize this until I sat down to document. Unless there is a need for a 2nd opinion re: Podiatric Surgical Care, please defer to Woundcare. In the future, I ask that it is made clear by the physician requesting the consult whether a wound care consult is needed or a podiatry surgical consult is needed, but please not both as it confuses patient care. I will sign off at this point. I spoke with Dr Navarro and reviewed the case. Yfn Paul DPM Jun 10, 2016 20:10
[2016-06-10] MEDS: REMOVE OLD PATCH TD SCH (20:11)
[2016-06-10] MEDS: SODIUM CHLORIDE 0.9% FLUSH 5 ML FLUSH IV FLUSH SCH (20:11)
--- NOTE | 2016-06-10 21:10 | RADRPT ---
EXAM DATE/TIME: 06/10/2016 16:11 [facility] COMPARISON: No previous studies available for comparison. INDICATIONS : PreOp cardiac surgery. MEDICAL HISTORY : Hypertension. Renal failure, chronic. Hyperparathyroidism. Diabetes. Peripheral vascular disease. C hronic systolic heart failure. Anemia. SURGICAL HISTORY : Appendectomy. Coronary artery stent. Bilateral inguinal hernia repair. Right fem-pop. ENCOUNTER: Initial ACUITY: 1 day PAIN SCORE: 0/10 LOCATION: Bilateral neck PEAK SYSTOLIC VELOCITIES (cm/sec): ICA/CCA RATIO: Right: 1.5 Left: 1.3 ICA: Right: 106 Left: 111 CCA: Right: 70 Left: 88 ECA: Right: 54 Left: 129 VERTEBRAL: Right: 42 antegrade Left: 59 antegrade Elevated flow velocities and ICA/CCA ratios have been found to correlate with increased degrees of vessel stenosis, calculated as percentage of diameter relative to a normal segment of distal ICA/CCA FINDINGS: RIGHT CAROTID: No significant stenosis is visualized. Mild to moderate plaquing is present. The waveforms are within normal limits. LEFT CAROTID: No significant stenosis is visualized. Mild to moderate plaquing is present. The waveforms are withi n normal limits. VERTEBRAL ARTERIES: Antegrade flow is seen in both vertebral arteries. MISCELLANEOUS: None. CONCLUSION: Mild to moderate plaquing bilaterally with less than 50% diameter stenosis by velocit y criteria. Gregorio Walsh MD on June 10, 2016 at 21:07 Board Certified Radiologist. This report was verified electronically.
--- NOTE | 2016-06-10 21:13 | RADRPT ---
EXAM DATE/TIME: 06/10/2016 16:44 [facility] COMPARISON: No previous studies available for comparison. INDICATIONS : PreOp cardiac surgery. MEDICAL HISTORY : Hypertension. Renal failure, chronic. Hyperparathyroidism. Diabetes. Peripheral vascular disease. Ch ronic systolic heart failure. Anemia. SURGICAL HISTORY : Coronary artery stent. Appendectomy. Bilateral inguinal hernia repair. Right fem-pop. ENCOUNTER: Initial ACUITY: 1 day PAIN SCORE: 0/10 LOCATION: Bilateral legs. GREATER SAPHENOUS VEIN THIGH: PROXIMAL: Right 6 mm Left 4 mm MID: Right 6 mm Left 4 mm DISTAL: Right Non-visualized Left 3 mm CALF: PROXIMAL: Right Non-visualized Left 3 mm MID: Right 1 mm Left 2 mm DISTAL: Right 2 mm Left 1 mm FINDINGS: The venous system of the lower extremities are patent by color Doppler imaging. Measurements of the leg veins (in mm) are listed above. CONCLUSION: Venous mapping study as described. Gregorio Walsh MD on June 10, 2016 at 21:11 Board Certified Radiologist. This report was verified electronically.
[2016-06-11] VITALS (14 sets, daily range): BP systolic 108–127; BP diastolic 56–71; PULSE 6–69; RESP 12–22; TEMP 97.9–98.8; O2SAT 91–94
[2016-06-11 01:28] LABS: APTT (PATIENT) 45.3 SEC (24.3-30.1)
[2016-06-11] MEDS: AZITHROMYCIN INJ 500 MG in SODIUM CHLOR 0.9% 250 ML INJ 250 ML IV SCH (02:05)
[2016-06-11] MEDS: CEFEPIME INJ 2,000 MG in SODIUM CHLORIDE 0.9% INJ 100 ML IV SCH ×2 (02:05→15:32)
[2016-06-11] MEDS: MORPHINE SULFATE 4 MG/ML INJ IV PRN ×10 (02:07→23:17)
[2016-06-11] MEDS: HEPARIN-D5W INJ 250 ML IV SCH ×2 (02:07→08:27)
[2016-06-11] MEDS: SODIUM CHLORIDE 0.9% FLUSH 5 ML FLUSH IV FLUSH PRN ×2 (02:07→05:11)
[2016-06-11] MEDS: RESP: ALBUTEROL 2.5 MG/IPRATROPIUM 0.5 MG NEB (SCH) INH ×2 (03:11→07:43)
[2016-06-11] MEDS: INSULIN ASPART SUPPLEMENTAL SCALE SQ SCH ×5 (04:00→20:00)
[2016-06-11] MEDS: CHLORHEXIDINE GLUCONATE 2 % 1 PACK (2 CLOTHS) TOP SCH (04:00)
[2016-06-11 04:20] LABS: HEMATOCRIT 27.2 % (39.0-51.0); MEAN CELL VOLUME 91.8 FL (80.0-100.0); MEAN CORPUSCULAR HEMOGLOBIN 30.9 PG (27.0-34.0); MEAN CORPUSCULAR HGB CONC 33.6 % (32.0-36.0); PLATELET COUNT 174 TH/MM3 (150-450); RED BLOOD COUNT 2.96 MIL/MM3 (4.50-5.90); RED CELL DISTRIBUTION WIDTH 14.9 % (11.6-17.2); REVIEW FLAG FINAL; WHITE BLOOD COUNT 7.4 TH/MM3 (4.0-11.0)
[2016-06-11] MEDS ORDERED: METOPROLOL TARTRATE 25 MG TAB PO SCH (05:00)
[2016-06-11] MEDS: amLODIPine BESYLATE 5 MG TAB PO SCH (08:07)
[2016-06-11] MEDS: PANTOPRAZOLE SOD 40 MG DELAYED RELEASE TAB PO SCH (08:07)
[2016-06-11] MEDS: GABAPENTIN 300 MG CAP PO SCH ×3 (08:08→17:05)
[2016-06-11] MEDS: CARVEDILOL 6.25 MG TAB PO SCH ×2 (08:08→20:14)
[2016-06-11] MEDS: AMIODARONE 200 MG TAB PO SCH (08:08)
[2016-06-11] MEDS: ASPIRIN 81 MG CHEW TAB PO SCH (08:09)
[2016-06-11] MEDS: ATORVASTATIN 20 MG TAB PO SCH (08:09)
[2016-06-11] MEDS: LINEZOLID 600 MG TAB PO SCH ×2 (08:10→20:15)
[2016-06-11] MEDS: BUMETANIDE INJ 1 MG/4 ML VIAL IV PUSH SCH ×2 (08:11→17:05)
[2016-06-11] MEDS: NICOTINE 14 MG/24 HR PATCH TD SCH (08:12)
[2016-06-11] MEDS: INSULIN DETEMIR 100 UNITS/ML VIAL SQ SCH ×2 (08:12→20:15)
[2016-06-11] MEDS: TICAGRELOR 90 MG TAB PO SCH (08:13)
[2016-06-11] MEDS: ARTIFICIAL TEARS OPTH SOLN 15 ML BTL EACH EYE SCH ×3 (08:29→17:32)
[2016-06-11] MEDS: DOCUSATE SODIUM 100 MG CAP PO SCH ×2 (08:30→20:15)
[2016-06-11] MEDS: SODIUM CHLORIDE 0.9% FLUSH 5 ML FLUSH IV FLUSH SCH ×2 (08:40→20:15)
[2016-06-11] MEDS: SODIUM CHLORIDE 0.9% FLUSH 5 ML FLUSH IVF SCH ×2 (08:41→20:16)
[2016-06-11] MEDS ORDERED: TIROFIBAN BOLUS IV ONE (11:45)
[2016-06-11] MEDS: TIROFIBAN INFUSION INJ 250 ML IV SCH (13:02)
[2016-06-11] MEDS: ACETAMINOPHEN/HYDROcodone 325 MG/5 MG TAB PO PRN ×2 (15:34→20:15)
--- NOTE | 2016-06-11 15:36 | PD.CAR.PN ---
CVT Progress Note Subjective/Hospital Course: 65-year-old male. Date of admission 06/07/2016. Past medical history includes recent heart catheterization 04/30/[address] Kan secondary to an inferior STEMI with PCI/MERE placed placed to the RCA and PDA. Left main was 30%. LAD was 40% proximal/80% diagonal. Left circumflex was 30%. EF was 20/5/30 percent. Im Sullivan devices placed as well. Patient had prolonged intubation During this hospitalization developed V. tach as well and a dual-chamber defibrillator was placed by Dr. Yousif /DDD 70 on 05/27. presented this admission , admitted this admission with NSTEMI, resp failure with hypoxia , underwent cardiac cath by YADI TeixeiraBA to stent thrombosis of RCA 06/09 pt was on Brilinta at home PMH: CAD, with 2 prior stents by the hypertension, diabetes,'s chronic systolic heart failure EF 20-25% , , peripheral vascular disease with a right femoropopliteal in situ saphenous vein revision [address] Mayes with thrombolytic colectomy to the popliteal artery and anterior and posterior tibial arteries, Objective: GENERAL: SKIN: Warm and dry. HEAD: Normocephalic. EYES: No scleral icterus. No injection or drainage. NECK: Supple, trachea midline. No JVD or lymphadenopathy. CARDIOVASCULAR: Regular rate and rhythm without murmurs, gallops, or rubs. RESPIRATORY: Breath sounds equal bilaterally. No accessory muscle use. few coarse breath sounds GASTROINTESTINAL: Abdomen soft, non-tender, nondistended. MUSCULOSKELETAL: No cyanosis, or edema. BACK: Nontender without obvious deformity. No CVA tenderness. ext , pressure ulcers both heels with necrotic dry tissue Vital Signs Date Time Temp Pulse Resp B/P Pulse Ox O2 Delivery O2 Flow Rate FiO2 06/11/16 14:00 69 06/11/16 13:24 19 06/11/16 12:00 69 06/11/16 12:00 98.1 69 22 108/63 92 06/11/16 10:00 69 06/11/16 08:00 97.9 69 20 127/71 92 06/11/16 08:00 69 06/11/16 07:44 94 Nasal Cannula 3.00 06/11/16 06:00 69 06/11/16 04:00 69 06/11/16 04:00 98.6 69 17 110/56 91 06/11/16 02:00 69 06/11/16 00:00 98.8 69 12 108/61 91 06/11/16 00:00 69 06/10/16 22:00 69 06/10/16 20:00 69 06/10/16 20:00 98.6 69 25 124/64 93 06/10/16 19:45 95 Nasal Cannula 4.00 06/10/16 18:28 69 06/10/16 16:23 98.0 69 22 104/56 96 06/10/16 16:23 69 Labs: Laboratory Tests Test 06/11/16 03:53 White Blood Count 7.4 TH/MM3 (4.0-11.0) Red Blood Count 2.96 MIL/MM3 (4.50-5.90) Hemoglobin 9.1 GM/DL (13.0-17.0) Hematocrit 27.2 % (39.0-51.0) Mean Corpuscular Volume 91.8 FL (80.0-100.0) Mean Corpuscular Hemoglobin 30.9 PG (27.0-34.0) Mean Corpuscular Hemoglobin 33.6 % Concent (32.0-36.0) Red Cell Distribution Width 14.9 % (11.6-17.2) Platelet Count 174 TH/MM3 (150-450) Mean Platelet Volume 9.2 FL (7.0-11.0) Activated Partial 44.0 SEC Thromboplast Time (24.3-30.1) Result Diagram: 06/11/16 0353 06/10/16 0423 (1) Acute respiratory failure with hypoxia Plan: resolved (2) SIRS (systemic inflammatory response syndrome) Plan: on antibiotics , zithromax, zyvox and cefepime (3) History of ventricular tachycardia Plan: BV ICD (4) NSTEMI (non-ST elevated myocardial infarction) Plan: s/p POBA to RCA, now eval for CABG x 2 RCA and LAD on heparin and Aggrastat , for surgery on 06/17 pt last dose of Brilinta 06/10 (5) Chronic kidney disease, stage III (moderate) Plan: avoid nephro toxins, monitor indices closely (6) Chronic systolic heart failure Plan: EF 20-25% (7) Dyslipidemia Plan: on statin (8) Hypertension (9) Peripheral vascular disease (10) Peripheral neuropathy (11) Coronary artery disease Plan: on ASA BB , statin (12) Pressure ulcer of left heel, unstageable Plan: per wound care Stop wearing heel protectors. Keep pillows under legs so heels rest off the bed. Educated the patient to keep the area dry. No baths or showers. He is not to sit with his heels resting on the floor. Eventually the necrotic eschar will come loose. No need for surgical debridement at this time. (13) Pressure ulcer of right heel, unstageable Problem Qualifiers (1) Peripheral neuropathy: Qualified Code: G62.9 - Peripheral polyneuropathy (2) Coronary artery disease: Qualified Code: I25.10 - Coronary artery disease involving [place] coronary artery of [place] heart, angina presence unspecified Nicole Lazar Jun 11, 2016 15:36
[2016-06-11 16:24] LABS: AUTOMATED NEUTROPHIL # 4.9 TH/MM3 (1.8-7.7); BASOPHIL # 0.1 TH/MM3 (0-0.2); EOSINOPHIL # 0.1 TH/MM3 (0-0.4); HEMATOCRIT 25.4 % (39.0-51.0); HEMO FLAGS DIFF FINAL; LYMPH % 21.9 % (9.0-44.0); LYMPHOCYTE # 1.6 TH/MM3 (1.0-4.8); MEAN CELL VOLUME 91.3 FL (80.0-100.0); MEAN CORPUSCULAR HEMOGLOBIN 30.7 PG (27.0-34.0); MEAN CORPUSCULAR HGB CONC 33.7 % (32.0-36.0); MONO % 6.9 % (0.0-8.0); NEUT % 68.2 % (16.0-70.0); PLATELET COUNT 196 TH/MM3 (150-450); RED BLOOD COUNT 2.78 MIL/MM3 (4.50-5.90); RED CELL DISTRIBUTION WIDTH 14.8 % (11.6-17.2); WHITE BLOOD COUNT 7.2 TH/MM3 (4.0-11.0)
[2016-06-11] MEDS: ALPRAZolam 0.5 MG TAB PO PRN (17:35)
--- NOTE | 2016-06-11 17:40 | PD.CARD.PN ---
Subjective Subjective Remarks Patient seen earlier No chest pain, no shortness of breath Objective Medications Current Medications Medications (Trade) Dose Ordered Sig/Lily Route Start Time Stop Time Status Last Admin (Zofran Inj) 4 mg Q6H PRN IV 06/07/16 04:30 Miscellaneous Information 1 Q361D XX 06/07/16 04:30 (Chlorhexidine 2% Cloth) 3 pack Taper DAILY@04 TOP 06/08/16 04:00 06/04/17 03:59 06/11/16 04:00 Chlorhexidine Gluconate 3 pack 3 pack UNSCH PRN TOP 06/07/16 04:30 Cefepime HCl 2000 mg/Sodium Chloride 100 ml @ 200 mls/hr Q12H IV 06/07/16 15:00 06/11/16 15:32 (Zithromax Inj/ NS 250 ml Inj) 250 ml @ 250 mls/hr Q24H IV 06/08/16 03:00 06/11/16 02:05 (D50w (Vial) Inj) 25 ml UNSCH PRN IV PUSH 06/07/16 04:30 (Glucagon Inj) 1 mg UNSCH PRN OTHER 06/07/16 04:30 (NovoLOG SUPPLEMENTAL SCALE) 1 Q4HR SQ 06/07/16 04:30 06/10/16 20:10 (Brilinta) 90 mg BID PO 06/07/16 09:00 Hold 06/11/16 08:13 (Coreg) 6.25 mg Q12HR PO 06/07/16 09:00 06/11/16 08:08 (Norvasc) 2.5 mg DAILY PO 06/07/16 09:00 06/11/16 08:07 (Cordarone) 200 mg DAILY PO 06/07/16 09:00 06/11/16 08:08 (Lipitor) 20 mg DAILY PO 06/07/16 09:00 06/11/16 08:09 (Neurontin) 300 mg TID PO 06/07/16 09:00 06/11/16 17:05 (Levemir Inj) 8 units Q12HR SQ 06/07/16 09:00 06/11/16 08:12 (Tylenol) 650 mg Q6H PRN PO 06/07/16 06:45 (Morphine Inj) 2 mg Q2H PRN IV 06/07/16 06:45 06/11/16 17:05 (Protonix) 40 mg DAILY PO 06/07/16 09:00 06/11/16 08:07 (Tears Naturale Opth Soln) 1 drop TID EACH EYE 06/07/16 09:00 06/09/16 17:31 (Colace) 100 mg BID PO 06/07/16 09:00 06/10/16 09:00 (Senokot) 17.2 mg Q12H PRN PO 06/07/16 06:45 (Zyvox) 600 mg Q12HR PO 06/07/16 21:00 06/11/16 08:10 (Heparin Inj) 5,000 units UNSCH PRN IV 06/08/16 15:15 Heparin Sodium (Porcine) 2500 units 2,500 units UNSCH PRN IV 06/08/16 15:15 (Heparin-D5W Inj) 250 ml @ 0 mls/hr TITRATE IV 06/08/16 09:15 06/11/16 08:27 ([place] 5-325 Mg) 2 tab Q4H PRN PO 06/09/16 10:45 06/11/16 15:34 (Aspirin Chew) 81 mg DAILY PO 06/10/16 09:00 06/11/16 08:09 (NS Flush) 2 ml UNSCH PRN IVF 06/09/16 15:30 06/09/16 23:38 (NS Flush) 2 ml BID IVF 06/09/16 21:00 06/11/16 08:41 (Xanax) 0.5 mg Q8H PRN PO 06/10/16 08:00 06/11/16 17:35 (Habitrol 14 Mg Patch.24 Hr) 1 patch DAILY TD 06/10/16 09:00 06/11/16 08:12 Miscellaneous Information 1 HS TD 06/10/16 21:00 06/10/16 20:11 (Bumex Inj) 1 mg BID@09,18 IV PUSH 06/10/16 09:00 06/11/16 17:05 (NS Flush) 2 ml BID IV FLUSH 06/10/16 21:00 06/11/16 08:40 IV Flush 2 ml 2 ml UNSCH PRN IV FLUSH 06/10/16 15:30 06/11/16 05:11 (Aggrastat Infusion Inj) 250 ml @ 18.018 mls/ hr [id number] IV 06/11/16 13:00 06/11/16 13:02 Vital Signs / I&O Vital Signs Date Time Temp Pulse Resp B/P Pulse Ox O2 Delivery O2 Flow Rate FiO2 06/11/16 16:43 18 06/11/16 16:00 98.2 69 18 118/64 94 06/11/16 16:00 69 06/11/16 16:00 95 6.00 06/11/16 15:30 20 06/11/16 15:00 91 Nasal Cannula 4.00 06/11/16 14:00 69 06/11/16 12:00 69 06/11/16 12:00 98.1 69 22 108/63 92 06/11/16 10:00 69 06/11/16 08:00 92 Nasal Cannula 3.00 06/11/16 08:00 97.9 69 20 127/71 92 06/11/16 08:00 69 06/11/16 07:44 94 Nasal Cannula 3.00 06/11/16 06:00 69 06/11/16 04:00 69 06/11/16 04:00 98.6 69 17 110/56 91 06/11/16 02:00 69 06/11/16 00:00 98.8 69 12 108/61 91 06/11/16 00:00 69 06/10/16 22:00 69 06/10/16 20:00 69 06/10/16 20:00 98.6 69 25 124/64 93 06/10/16 19:45 95 Nasal Cannula 4.00 06/10/16 18:28 69 I/O 06/10/16 06/10/16 06/10/16 06/11/16 06/11/16 06/11/16 07:00 15:00 23:00 07:00 15:00 23:00 Intake Total 784 ml 710 ml 320 ml 501 ml 926 ml Output Total 450 ml 950 ml 600 ml 550 ml 850 ml Balance 334 ml -240 ml -280 ml -49 ml 76 ml Intake Oral 600 ml 720 ml IV Total 784 ml 110 ml 320 ml 501 ml 206 ml Output Urine Total 450 ml 950 ml 600 ml 550 ml 850 ml # Bowel Movements 0 0 Physical Exam GENERAL: NAD, AAOx3 SKIN: Warm and dry. HEAD: Atraumatic. Normocephalic. EYES: Pupils equal and round. No scleral icterus. No injection or drainage. ENT: No nasal bleeding or discharge. Mucous membranes pink and moist. NECK: Trachea midline. No JVD. CARDIOVASCULAR: Regular rate and rhythm. RESPIRATORY: No accessory muscle use. Decreased breath sounds bilaterally GASTROINTESTINAL: Abdomen soft, non-tender, nondistended. Hepatic and splenic margins not palpable. MUSCULOSKELETAL: Extremities without clubbing, cyanosis, or edema. No obvious deformities. Bilateral heal ulcers with eschar. Right radial no hematoma, neurovascular intact distally NEUROLOGICAL: Awake and alert. No obvious cranial nerve deficits. Motor grossly within normal limits. Five out of 5 muscle strength in the arms and legs. Normal speech. PSYCHIATRIC: Appropriate mood and affect; insight and judgment normal. Laboratory Laboratory Tests Test 06/10/16 06/11/16 06/11/16 06/11/16 19:00 00:37 03:53 15:50 Activated Partial 45.2 SEC 45.3 SEC 44.0 SEC Thromboplast Time White Blood Count 7.4 TH/MM3 7.2 TH/MM3 Red Blood Count 2.96 MIL/MM3 2.78 MIL/MM3 Hemoglobin 9.1 GM/DL 8.6 GM/DL Hematocrit 27.2 % 25.4 % Mean Corpuscular Volume 91.8 FL 91.3 FL Mean Corpuscular Hemoglobin 30.9 PG 30.7 PG Mean Corpuscular Hemoglobin 33.6 % 33.7 % Concent Red Cell Distribution Width 14.9 % 14.8 % Platelet Count 174 TH/MM3 196 TH/MM3 Mean Platelet Volume 9.2 FL 9.4 FL Neutrophils (%) (Auto) 68.2 % Lymphocytes (%) (Auto) 21.9 % Monocytes (%) (Auto) 6.9 % Eosinophils (%) (Auto) 2.0 % Basophils (%) (Auto) 1.0 % Neutrophils # (Auto) 4.9 TH/MM3 Lymphocytes # (Auto) 1.6 TH/MM3 Monocytes # (Auto) 0.5 TH/MM3 Eosinophils # (Auto) 0.1 TH/MM3 Basophils # (Auto) 0.1 TH/MM3 CBC Comment DIFF FINAL Differential Comment Assessment and Plan Problem List: (1) Acute respiratory failure with hypoxia (2) SIRS (systemic inflammatory response syndrome) (3) History of ventricular tachycardia (4) NSTEMI (non-ST elevated myocardial infarction) (5) Chronic kidney disease, stage III (moderate) (6) Chronic systolic heart failure (7) Dyslipidemia (8) Hypertension (9) Peripheral vascular disease (10) Peripheral neuropathy (11) Coronary artery disease (12) Pressure ulcer of left heel, unstageable (13) Pressure ulcer of right heel, unstageable Assessment and Plan 1) Catheterization by Dr. Kan, opened occluded RCA stents but concern for thrombus 2) Concern for LAD disease and RCA disease with multiple stents that have thrombosed or restenosed, Dr. Kan spoke to Dr. Langley about consideration of CABG with a plan for next week 3) CT surgery unable to do CABG on Brilinta, Brilinta D/C'd... will place on Heparin and Aggrastat drip with a plan for continuing until CT surgery Problem Qualifiers (1) Peripheral neuropathy: Qualified Code: G62.9 - Peripheral polyneuropathy (2) Coronary artery disease: Qualified Code: I25.10 - Coronary artery disease involving [place] coronary artery of [place] heart, angina presence unspecified Robert Murphy DO Jun 11, 2016 17:40
[2016-06-11] MEDS ORDERED: MORPHINE SULFATE 4 MG/ML INJ IV PRN (18:30)
--- NOTE | 2016-06-11 19:24 | HHI.CCPN ---
Subjective Remarks/Hospital Course 65-year-old male. Date of admission 06/07/2016. Past medical history includes recent heart catheterization 04/30/[address] Kan secondary to an inferior STEMI with PCI/MERE placed placed to the RCA and PDA. Left main was 30%. LAD was 40% proximal/80% diagonal. Left circumflex was 30%. EF was 20/5/30 percent. In [place] devices placed as well. Patient had prolonged intubation During this hospitalization developed V. tach as well and a dual-chamber defibrillator was placed by Dr. Yousif/DDD 70 on 05/27. Past medical history also includes coronary disease with 2 prior stents by the hypertension, diabetes,'s chronic systolic heart failure, peripheral vascular disease with a right femoropopliteal in situ saphenous vein revision [address] Mayes with thrombolytic colectomy to the popliteal artery and anterior and posterior tibial arteries. Patient presents to [facility] with acute onset of shortness of breath. Subjective: 06/09 Tmax 98.3. No acute events overnight. Patient denies any angina or shortness of breath. The patient continues on 3 L nasal cannula with O2 saturation of 95%. The patient remained nothing by mouth last evening for plan cardiac catheterization this a.m.. However was noted the patient's creatinine was slightly elevated to 1.5 from 1.3 yesterday. Plan today for gentle hydration IV fluids 50 cc/1 hour, will hold diuretics. Monitor serum creatinine with a plan for cardiac catheterization tomorrow morning. Patient also complained of bilateral leg pain, will increase pain medication strength. The patient is noted to have bilateral blackened heel secondary to peripheral vascular disease. The patient was previously seen by Dr. Contreras will reconsult for evaluation of patient's bilateral lower extremities. 06/10: The patient was evaluated and underwent left heart catheterization yesterday by Dr. Kan. The patient was noted to have thrombosis of his previously placed stents (6 weeks ago), noted stent thrombosis of RCA, questionable compliance of home medication regimen. Severe three-vessel coronary artery disease, cardiothoracic surgery consulted. The patient continues on heparin and Aggrastat infusions. Vascular surgery evaluated patient bilateral lower extremities, vessels patent, noted eschar bilateral heels-Podiatry consulted for wound management. The patient has a history of smoking up to 2 packs a day, the patient reports for the last 6 weeks post stent placement smokes 4 cigarettes per day, will order nicotine patch, and counseled on cessation of smoking. Creatinine today 1.4, IV 0.9 NaCl fluid discontinued. 06/11: Patient tentatively scheduled for cardiothoracic surgery, for next week. Brillinta discontinued, the patient continues on Aggrastat and heparin infusions. Podiatry in to evaluate and provide treatment guidelines for bilateral heel eschars. No noted dyspnea, remains on 3 L nasal cannula. Objective Vital Signs Date Time Temp Pulse Resp B/P Pulse Ox O2 Delivery O2 Flow Rate FiO2 06/11/16 18:15 20 06/11/16 18:00 69 06/11/16 16:00 98.2 118/64 94 06/11/16 16:00 6.00 06/11/16 15:00 Nasal Cannula Intake and Output 06/10/16 06/10/16 06/11/16 08:00 16:00 00:00 Intake Total 784 ml 710 ml 320 ml Output Total 450 ml 950 ml 600 ml Balance 334 ml -240 ml -280 ml Result Diagram: 06/11/16 1550 06/10/16 0423 Other Results Microbiology Date/Time Procedure Status Source Growth 06/09/16 11:55 Stool Occult Blood (IRLANDA) - Final Complete Stool Stool HEMOCCULT NEGATIVE Imaging Last Impressions Chest X-Ray 06/07/16 0146 Signed Impressions: Service Date/Time: Thursday, June 07, 2016 02:04 - CONCLUSION: Patchy non-consolidative infiltrates in the mid and lower lungs bilaterally. Edgar Mustafa MD Objective Remarks GENERAL: SKIN: Warm and dry. HEAD: Atraumatic. Normocephalic. EYES: Pupils equal and round. No scleral icterus. No injection or drainage. ENT: No nasal bleeding or discharge. Mucous membranes pink and moist. NECK: Trachea midline. No JVD. CARDIOVASCULAR: Regular rate and rhythm. RESPIRATORY: No accessory muscle use. Clear to auscultation. Breath sounds equal bilaterally. GASTROINTESTINAL: Abdomen soft, non-tender, nondistended. Hepatic and splenic margins not palpable. MUSCULOSKELETAL: Extremities without clubbing, cyanosis, or edema. Multiple noted previous toe partial amputations, right foot. Bilateral heels noted blackened with eschar. Unable to palpate B/L PT, and DP pulses, but dopplerable NEUROLOGICAL: Awake and alert. No obvious cranial nerve deficits. Motor grossly within normal limits. Five out of 5 muscle strength in the arms and legs. Normal speech. PSYCHIATRIC: Appropriate mood and affect; insight and judgment normal. A/P Assessment and Plan Neuro/Psych: Peripheral neuropathy secondary to diabetes Anxiety Continue Neurontin 300 mg by mouth 3 times a day for neuropathy. Acetaminophen for fever [place]/morphine for pain management, [place] to 10/325mg Xanax 0.5 mg every 8 hours when necessary CV: Chronic systolic heart failure EF 25-30% with mild LVH and diffuse hypokinesis Peripheral vascular disease - history of right femoropopliteal with in situ saphenous vein grafting with thrombectomy of popliteal artery/anterior posterior tibial arteries [address] Mayes Coronary artery disease recent PCI/drug-eluting stent to RCA/PDA 04/[address] Kan secondary to inferior STEMI Dual-chamber defibrillator placed 05/[address] Yousif. DDD/70 Hypertension Dyslipidemia Elevated troponin Stent thrombosis RCA Severe CAD three-vessel LAD, circumflex, stented RCA Cardiac consultation/Dr. Kan cardiac management S/P left heart catheterization 06/09/16-left main 4050 percent occlusion, left circumflex 70% occlusion,thrombosed RCA Limited echocardiogram to eval LV function pending Continue amiodarone 200 mg by mouth daily for history of V. tach Continue Brilinta 90 mg twice a day and aspirin 81 mg daily for heart stent Resume Bumex 1 mg IV twice a day [place] 30 mg by mouth daily for dyslipidemia. Resume Coreg at 6.25 mg twice a day and Norvasc 2.5 mg by mouth daily for hypertension. On double dose at home. S/P catheterization 06/09-severe three-vessel coronary artery disease Cardiothoracic surgery Dr. Langley tentatively scheduled for CABG next week Heparin and Aggrastat infusions, Brilinta discontinued Resp: Acute hypoxemic respiratory failure On nasal cannula 3 L/m O2 sat 95% Wean FiO2 as tolerated Chest x-ray reveals bilateral lower lobe infiltrates, slight improvement Bronchodilator therapy every 6 hours and as needed Initiate incentive spirometry GI: Gastroesophageal reflux disease ADA diet. Protonix for GI prophylaxis. On Protonix home. Colace/as needed Senokot for bowel regimen : [place] will be placed for accurate I's and O's in a critically ill patient if required Endo: Diabetes mellitus type 2 Hyperglycemia of critical illness On lispro 15 units daily at home. Sliding-scale insulin with Accu-Cheks every 4 hours to maintain euglycemia. Initiate insulin drip if unable to maintain tight euglycemic control Renal: Chronic kidney disease stage III. Creatinine 1.4 Discontinued NS @ 50cc/hr Monitor urine output closely. Accurate I's and O's Heme: Leukocytosis Normocytic anemia Monitor CBC/CMP daily. Follow trends ID: Possible community-acquired pneumonia History of MRSA treated with Zyvox Day 4 cefepime/Zithromax. Zyvox 2/2 history of MRSA pneumonia in sputum Blood cultures 2, sputum and UA NGTD Influenza negative FEN: Replace electrolytes as clinically indicated MSK: Osteoarthritis PT evaluate and treat Access - Utilize peripheral IV. Central line if indicated Prophylaxis - GI - Protonix - DVT - SCD/Heparin infusion Critical Care: Level 3. I discussed with patient, DIRECTOR DATABASE and Dr. Murphy Physician Breonna Maldonado MD Jun 11, 2016 19:24
[2016-06-11] MEDS: REMOVE OLD PATCH TD SCH (20:16)
[2016-06-11 21:15] LABS: APTT (PATIENT) 42.9 SEC (24.3-30.1)
[2016-06-12] VITALS (16 sets, daily range): BP systolic 109–145; BP diastolic 61–76; PULSE 69; RESP 14–22; TEMP 97.4–98.4; O2SAT 86–97
[2016-06-12] MEDS: ACETAMINOPHEN/HYDROcodone 325 MG/5 MG TAB PO PRN ×3 (00:48→11:23)
[2016-06-12] MEDS: MORPHINE SULFATE 4 MG/ML INJ IV PRN ×9 (01:52→22:11)
[2016-06-12] MEDS: TIROFIBAN INFUSION INJ 250 ML IV SCH ×2 (01:54→17:12)
[2016-06-12] MEDS: CEFEPIME INJ 2,000 MG in SODIUM CHLORIDE 0.9% INJ 100 ML IV SCH ×2 (01:57→14:01)
[2016-06-12] MEDS: AZITHROMYCIN INJ 500 MG in SODIUM CHLOR 0.9% 250 ML INJ 250 ML IV SCH (01:57)
[2016-06-12] MEDS: HEPARIN-D5W INJ 250 ML IV SCH ×2 (03:58→20:32)
[2016-06-12] MEDS: INSULIN ASPART SUPPLEMENTAL SCALE SQ SCH ×6 (04:00→20:00)
[2016-06-12] MEDS: CHLORHEXIDINE GLUCONATE 2 % 1 PACK (2 CLOTHS) TOP SCH (04:00)
[2016-06-12] MEDS: ALPRAZolam 0.5 MG TAB PO PRN (05:21)
[2016-06-12 05:34] LABS: AUTOMATED NEUTROPHIL # 3.4 TH/MM3 (1.8-7.7); BASOPHIL # 0.1 TH/MM3 (0-0.2); BASOPHIL % 1.2 % (0.0-2.0); EOSINOPHIL # 0.1 TH/MM3 (0-0.4); EOSINOPHIL % 2.4 % (0.0-4.0); HEMATOCRIT 24.7 % (39.0-51.0); HEMO FLAGS DIFF FINAL; LYMPH % 31.1 % (9.0-44.0); LYMPHOCYTE # 1.9 TH/MM3 (1.0-4.8); MEAN CELL VOLUME 91.7 FL (80.0-100.0); MEAN CORPUSCULAR HEMOGLOBIN 30.9 PG (27.0-34.0); MEAN CORPUSCULAR HGB CONC 33.7 % (32.0-36.0); MONO % 7.7 % (0.0-8.0); NEUT % 57.6 % (16.0-70.0); PLATELET COUNT 182 TH/MM3 (150-450); RED BLOOD COUNT 2.69 MIL/MM3 (4.50-5.90)
[2016-06-12 05:42] LABS: APTT (PATIENT) 47.3 SEC (24.3-30.1)
[2016-06-12 06:10] LABS: BICARBONATE 25.9 MEQ/L (21.0-32.0)
[2016-06-12] MEDS: LINEZOLID 600 MG TAB PO SCH ×2 (08:02→20:08)
[2016-06-12] MEDS: DOCUSATE SODIUM 100 MG CAP PO SCH ×2 (08:02→20:08)
[2016-06-12] MEDS: ATORVASTATIN 20 MG TAB PO SCH (08:03)
[2016-06-12] MEDS: ASPIRIN 81 MG CHEW TAB PO SCH (08:03)
[2016-06-12] MEDS: PANTOPRAZOLE SOD 40 MG DELAYED RELEASE TAB PO SCH (08:03)
[2016-06-12] MEDS: GABAPENTIN 300 MG CAP PO SCH ×3 (08:03→17:12)
[2016-06-12] MEDS: BUMETANIDE INJ 1 MG/4 ML VIAL IV PUSH SCH ×2 (08:04→17:12)
[2016-06-12] MEDS: NICOTINE 14 MG/24 HR PATCH TD SCH (08:04)
[2016-06-12] MEDS: CARVEDILOL 6.25 MG TAB PO SCH ×2 (08:06→20:08)
[2016-06-12] MEDS: SODIUM CHLORIDE 0.9% FLUSH 5 ML FLUSH IV FLUSH SCH ×2 (08:06→20:08)
[2016-06-12] MEDS: AMIODARONE 200 MG TAB PO SCH (08:06)
[2016-06-12] MEDS: SODIUM CHLORIDE 0.9% FLUSH 5 ML FLUSH IVF SCH ×2 (08:06→20:08)
[2016-06-12] MEDS: amLODIPine BESYLATE 5 MG TAB PO SCH (08:07)
[2016-06-12] MEDS: ARTIFICIAL TEARS OPTH SOLN 15 ML BTL EACH EYE SCH ×3 (08:07→17:16)
[2016-06-12] MEDS: INSULIN DETEMIR 100 UNITS/ML VIAL SQ SCH ×3 (08:27→20:17)
--- NOTE | 2016-06-12 14:25 | PD.CARD.PN ---
Subjective Subjective Remarks no complaints Objective Medications Current Medications Medications (Trade) Dose Ordered Sig/Lily Route Start Time Stop Time Status Last Admin (Zofran Inj) 4 mg Q6H PRN IV 06/07/16 04:30 Miscellaneous Information 1 Q361D XX 06/07/16 04:30 (Chlorhexidine 2% Cloth) 3 pack Taper DAILY@04 TOP 06/08/16 04:00 06/04/17 03:59 06/12/16 04:00 Chlorhexidine Gluconate 3 pack 3 pack UNSCH PRN TOP 06/07/16 04:30 Cefepime HCl 2000 mg/Sodium Chloride 100 ml @ 200 mls/hr Q12H IV 06/07/16 15:00 06/12/16 14:01 (Zithromax Inj/ NS 250 ml Inj) 250 ml @ 250 mls/hr Q24H IV 06/08/16 03:00 06/12/16 01:57 (D50w (Vial) Inj) 25 ml UNSCH PRN IV PUSH 06/07/16 04:30 (Glucagon Inj) 1 mg UNSCH PRN OTHER 06/07/16 04:30 (NovoLOG SUPPLEMENTAL SCALE) 1 Q4HR SQ 06/07/16 04:30 06/11/16 20:00 (Brilinta) 90 mg BID PO 06/07/16 09:00 Hold 06/11/16 08:13 (Coreg) 6.25 mg Q12HR PO 06/07/16 09:00 06/12/16 08:06 (Norvasc) 2.5 mg DAILY PO 06/07/16 09:00 06/12/16 08:07 (Cordarone) 200 mg DAILY PO 06/07/16 09:00 06/12/16 08:06 (Lipitor) 20 mg DAILY PO 06/07/16 09:00 06/12/16 08:03 (Neurontin) 300 mg TID PO 06/07/16 09:00 06/12/16 12:30 (Levemir Inj) 8 units Q12HR SQ 06/07/16 09:00 06/12/16 11:28 (Tylenol) 650 mg Q6H PRN PO 06/07/16 06:45 (Protonix) 40 mg DAILY PO 06/07/16 09:00 06/12/16 08:03 (Tears Naturale Opth Soln) 1 drop TID EACH EYE 06/07/16 09:00 06/09/16 17:31 (Colace) 100 mg BID PO 06/07/16 09:00 06/12/16 08:02 (Senokot) 17.2 mg Q12H PRN PO 06/07/16 06:45 (Zyvox) 600 mg Q12HR PO 06/07/16 21:00 06/12/16 08:02 (Heparin Inj) 5,000 units UNSCH PRN IV 06/08/16 15:15 Heparin Sodium (Porcine) 2500 units 2,500 units UNSCH PRN IV 06/08/16 15:15 (Heparin-D5W Inj) 250 ml @ 0 mls/hr TITRATE IV 06/08/16 09:15 06/12/16 03:58 ([place] 5-325 Mg) 2 tab Q4H PRN PO 06/09/16 10:45 06/12/16 11:23 (Aspirin Chew) 81 mg DAILY PO 06/10/16 09:00 06/12/16 08:03 (NS Flush) 2 ml UNSCH PRN IVF 06/09/16 15:30 06/09/16 23:38 (NS Flush) 2 ml BID IVF 06/09/16 21:00 06/12/16 08:06 (Xanax) 0.5 mg Q8H PRN PO 06/10/16 08:00 06/12/16 05:21 (Habitrol 14 Mg Patch.24 Hr) 1 patch DAILY TD 06/10/16 09:00 06/12/16 08:04 Miscellaneous Information 1 HS TD 06/10/16 21:00 06/11/16 20:16 (Bumex Inj) 1 mg BID@09,18 IV PUSH 06/10/16 09:00 06/12/16 08:04 (NS Flush) 2 ml BID IV FLUSH 06/10/16 21:00 06/12/16 08:06 IV Flush 2 ml 2 ml UNSCH PRN IV FLUSH 06/10/16 15:30 06/11/16 05:11 (Aggrastat Infusion Inj) 250 ml @ 18.018 mls/ hr [id number] IV 06/11/16 13:00 3/16/17 01:54 (Morphine Inj) 2 mg Q2H PRN IV 06/11/16 18:30 06/12/16 12:30 Vital Signs / I&O Vital Signs Date Time Temp Pulse Resp B/P Pulse Ox O2 Delivery O2 Flow Rate FiO2 06/12/16 12:30 18 06/12/16 12:00 69 06/12/16 12:00 97.4 69 16 142/74 94 06/12/16 10:22 18 06/12/16 10:14 69 06/12/16 09:16 94 Nasal Cannula 4.00 06/12/16 08:00 69 06/12/16 08:00 97.5 69 22 126/67 92 06/12/16 07:00 92 Nasal Cannula 6.00 06/12/16 06:00 69 06/12/16 04:00 98.4 69 16 109/61 91 06/12/16 04:00 69 06/12/16 02:00 69 06/12/16 00:00 69 06/12/16 00:00 98.2 69 14 130/69 97 06/11/16 22:00 69 06/11/16 20:28 91 Nasal Cannula 6.00 06/11/16 20:00 97.9 69 16 117/67 94 06/11/16 20:00 69 06/11/16 19:00 93 Nasal Cannula 6.00 06/11/16 18:15 20 06/11/16 18:00 69 06/11/16 16:00 98.2 69 18 118/64 94 06/11/16 16:00 69 06/11/16 16:00 95 6.00 06/11/16 15:00 91 Nasal Cannula 4.00 I/O 06/11/16 06/11/16 06/11/16 06/12/16 06/12/16 06/12/16 07:00 15:00 23:00 07:00 15:00 23:00 Intake Total 501 ml 926 ml 905 ml 1080 ml 1309 ml Output Total 550 ml 850 ml 750 ml 650 ml 900 ml Balance -49 ml 76 ml 155 ml 430 ml 409 ml Intake Oral 720 ml 720 ml 480 ml 720 ml IV Total 501 ml 206 ml 185 ml 600 ml 589 ml Output Urine Total 550 ml 850 ml 750 ml 650 ml 900 ml # Bowel Movements 0 0 Physical Exam GENERAL: Well-nourished, well-developed patient. SKIN: Warm and dry. HEAD: Normocephalic. EYES: No scleral icterus. No injection or drainage. NECK: Supple, trachea midline. No JVD or lymphadenopathy. CARDIOVASCULAR: Regular rate and rhythm without murmurs, gallops, or rubs. RESPIRATORY: Breath sounds equal bilaterally. No accessory muscle use. GASTROINTESTINAL: Abdomen soft, non-tender, nondistended. EXTREMITIES: No cyanosis, or edema. NEUROLOGICAL: Awake, alert, and oriented x 3. Non-focal. Laboratory Laboratory Tests Test 06/11/16 06/11/16 06/12/16 15:50 20:25 04:59 White Blood Count 7.2 TH/MM3 6.0 TH/MM3 Red Blood Count 2.78 MIL/MM3 2.69 MIL/MM3 Hemoglobin 8.6 GM/DL 8.3 GM/DL Hematocrit 25.4 % 24.7 % Mean Corpuscular Volume 91.3 FL 91.7 FL Mean Corpuscular Hemoglobin 30.7 PG 30.9 PG Mean Corpuscular Hemoglobin 33.7 % 33.7 % Concent Red Cell Distribution Width 14.8 % 15.0 % Platelet Count 196 TH/MM3 182 TH/MM3 Mean Platelet Volume 9.4 FL 9.2 FL Neutrophils (%) (Auto) 68.2 % 57.6 % Lymphocytes (%) (Auto) 21.9 % 31.1 % Monocytes (%) (Auto) 6.9 % 7.7 % Eosinophils (%) (Auto) 2.0 % 2.4 % Basophils (%) (Auto) 1.0 % 1.2 % Neutrophils # (Auto) 4.9 TH/MM3 3.4 TH/MM3 Lymphocytes # (Auto) 1.6 TH/MM3 1.9 TH/MM3 Monocytes # (Auto) 0.5 TH/MM3 0.5 TH/MM3 Eosinophils # (Auto) 0.1 TH/MM3 0.1 TH/MM3 Basophils # (Auto) 0.1 TH/MM3 0.1 TH/MM3 CBC Comment DIFF FINAL DIFF FINAL Differential Comment Activated Partial 42.9 SEC 47.3 SEC Thromboplast Time Sodium Level 140 MEQ/L Potassium Level 4.0 MEQ/L Chloride Level 107 MEQ/L Carbon Dioxide Level 25.9 MEQ/L Anion Gap 7 MEQ/L Blood Urea Nitrogen 30 MG/DL Creatinine 1.36 MG/DL Estimat Glomerular Filtration 52 ML/MIN Rate Random Glucose 79 MG/DL Calcium Level 8.5 MG/DL Imaging Last Impressions Lower Extremity Ultrasound 06/10/16 0000 Signed Impressions: Service Date/Time: Friday, June 10, 2016 16:44 - CONCLUSION: Venous mapping study as described. Gregorio Walsh MD Carotid Artery Ultrasound 06/10/16 0000 Signed Impressions: Service Date/Time: Friday, June 10, 2016 16:11 - CONCLUSION: Mild to moderate plaquing bilaterally with less than 50%% diameter stenosis by velocity criteria. Gregorio Walsh MD Chest X-Ray 06/08/16 0000 Signed Impressions: Service Date/Time: Wednesday, June 08, 2016 05:17 - CONCLUSION: Persistent but improving bilateral acinar infiltrates. Edgar Mustafa MD CT Angiography 06/07/16 0000 Signed Impressions: Service Date/Time: Tuesday, June 07, 2016 15:18 - CONCLUSION: 1. No pulmonary embolus. 2. Very small, bilateral pleural effusions and patchy bilateral airspace opacities. 3. Mildly enlarged mediastinal lymph nodes, nonspecific. 4. Several nodules up to 2 cm in size of the left adrenal gland, incompletely characterized but statistically most likely adenomas. There is a cyst of the left kidney. 5. Coronary artery calcification. Florencio Hamilton MD Assessment and Plan Problem List: (1) NSTEMI (non-ST elevated myocardial infarction) Assessment and Plan: s/p POBA RCA Schedule CABG on current med management (2) Acute respiratory failure with hypoxia (3) SIRS (systemic inflammatory response syndrome) (4) History of ventricular tachycardia (5) Chronic kidney disease, stage III (moderate) (6) Chronic systolic heart failure (7) Dyslipidemia (8) Hypertension (9) Peripheral vascular disease (10) Peripheral neuropathy (11) Coronary artery disease (12) Pressure ulcer of left heel, unstageable (13) Pressure ulcer of right heel, unstageable Problem Qualifiers (1) Peripheral neuropathy: Qualified Code: G62.9 - Peripheral polyneuropathy (2) Coronary artery disease: Qualified Code: I25.10 - Coronary artery disease involving [place] coronary artery of [place] heart, angina presence unspecified Asher Meade MD Jun 12, 2016 14:25
[2016-06-12] MEDS: HYDROmorphone HCL PF 1 MG/ML VIAL IV PUSH PRN ×2 (14:33→18:28)
--- NOTE | 2016-06-12 14:56 | HHI.CCPN ---
Subjective Remarks/Hospital Course 65-year-old male. Date of admission 06/07/2016. Past medical history includes recent heart catheterization 04/30/[address] Kan secondary to an inferior STEMI with PCI/MERE placed placed to the RCA and PDA. Left main was 30%. LAD was 40% proximal/80% diagonal. Left circumflex was 30%. EF was 20/5/30 percent. In [place] devices placed as well. Patient had prolonged intubation During this hospitalization developed V. tach as well and a dual-chamber defibrillator was placed by Dr. Yousif/DDD 70 on 05/27. Past medical history also includes coronary disease with 2 prior stents by the hypertension, diabetes,'s chronic systolic heart failure, peripheral vascular disease with a right femoropopliteal in situ saphenous vein revision [address] Mayes with thrombolytic colectomy to the popliteal artery and anterior and posterior tibial arteries. Patient presents to [facility] with acute onset of shortness of breath. Subjective: 06/09 Tmax 98.3. No acute events overnight. Patient denies any angina or shortness of breath. The patient continues on 3 L nasal cannula with O2 saturation of 95%. The patient remained nothing by mouth last evening for plan cardiac catheterization this a.m.. However was noted the patient's creatinine was slightly elevated to 1.5 from 1.3 yesterday. Plan today for gentle hydration IV fluids 50 cc/1 hour, will hold diuretics. Monitor serum creatinine with a plan for cardiac catheterization tomorrow morning. Patient also complained of bilateral leg pain, will increase pain medication strength. The patient is noted to have bilateral blackened heel secondary to peripheral vascular disease. The patient was previously seen by Dr. Contreras will reconsult for evaluation of patient's bilateral lower extremities. 06/10: The patient was evaluated and underwent left heart catheterization yesterday by Dr. Kan. The patient was noted to have thrombosis of his previously placed stents (6 weeks ago), noted stent thrombosis of RCA, questionable compliance of home medication regimen. Severe three-vessel coronary artery disease, cardiothoracic surgery consulted. The patient continues on heparin and Aggrastat infusions. Vascular surgery evaluated patient bilateral lower extremities, vessels patent, noted eschar bilateral heels-Podiatry consulted for wound management. The patient has a history of smoking up to 2 packs a day, the patient reports for the last 6 weeks post stent placement smokes 4 cigarettes per day, will order nicotine patch, and counseled on cessation of smoking. Creatinine today 1.4, IV 0.9 NaCl fluid discontinued. 06/11: Patient tentatively scheduled for cardiothoracic surgery, for next week. Brillinta discontinued, the patient continues on Aggrastat and heparin infusions. Podiatry in to evaluate and provide treatment guidelines for bilateral heel eschars. No noted dyspnea, remains on 3 L nasal cannula. 06/12: The patient continues to have physical activity out of bed to chair without dyspnea. The patient complains of pain bilateral lower extremities despite the use of [place] 10/325 and morphine. Will supplement with Dilaudid when necessary. Incentive spirometry ordered will continue to encourage patient to utilize incentive spirometer. Creatinine improving down to baseline 1.3. Objective Vital Signs Date Time Temp Pulse Resp B/P Pulse Ox O2 Delivery O2 Flow Rate FiO2 06/12/16 14:00 69 06/12/16 12:30 18 06/12/16 12:00 97.4 142/74 94 06/12/16 09:16 Nasal Cannula 4.00 Intake and Output 06/11/16 06/11/16 06/12/16 08:00 16:00 00:00 Intake Total 501 ml 926 ml 905 ml Output Total 550 ml 850 ml 750 ml Balance -49 ml 76 ml 155 ml Result Diagram: 06/12/16 0459 06/12/16 0459 Imaging Last Impressions Chest X-Ray 06/07/16 0146 Signed Impressions: Service Date/Time: Tuesday, June 07, 2016 02:04 - CONCLUSION: Patchy non-consolidative infiltrates in the mid and lower lungs bilaterally. Edgar Mustafa MD Objective Remarks GENERAL: SKIN: Warm and dry. HEAD: Atraumatic. Normocephalic. EYES: Pupils equal and round. No scleral icterus. No injection or drainage. ENT: No nasal bleeding or discharge. Mucous membranes pink and moist. NECK: Trachea midline. No JVD. CARDIOVASCULAR: Regular rate and rhythm. RESPIRATORY: No accessory muscle use. Clear to auscultation. Breath sounds equal bilaterally. GASTROINTESTINAL: Abdomen soft, non-tender, nondistended. Hepatic and splenic margins not palpable. MUSCULOSKELETAL: Extremities without clubbing, cyanosis, or edema. Multiple noted previous toe partial amputations, right foot. Bilateral heels noted blackened with eschar. Unable to palpate B/L PT, and DP pulses, but dopplerable NEUROLOGICAL: Awake and alert. No obvious cranial nerve deficits. Motor grossly within normal limits. Five out of 5 muscle strength in the arms and legs. Normal speech. PSYCHIATRIC: Appropriate mood and affect; insight and judgment normal. A/P Assessment and Plan Neuro/Psych: Peripheral neuropathy secondary to diabetes Anxiety Neurontin 300 mg by mouth 3 times a day for neuropathy. Acetaminophen for fever [place]/morphine for pain management, [place] to 10/325mg, Dilaudid added every 4 hours when necessary for pain Xanax 0.5 mg every 8 hours when necessary CV: Chronic systolic heart failure EF 25-30% with mild LVH and diffuse hypokinesis Peripheral vascular disease - history of right femoropopliteal with in situ saphenous vein grafting with thrombectomy of popliteal artery/anterior posterior tibial arteries [address] Mayes Coronary artery disease recent PCI/drug-eluting stent to RCA/PDA 04/[address] Kan secondary to inferior STEMI Dual-chamber defibrillator placed 05/[address] Yousif. DDD/70 Hypertension Dyslipidemia Elevated troponin Stent thrombosis RCA Severe CAD three-vessel LAD, circumflex, stented RCA Cardiac consultation/Dr. Kan cardiac management S/P left heart catheterization 06/09/16-left main 4050 percent occlusion, left circumflex 70% occlusion,thrombosed RCA Limited echocardiogram to eval LV function pending Continue amiodarone 200 mg by mouth daily for history of V. tach Continue Brilinta 90 mg twice a day and aspirin 81 mg daily for heart stent Resume Bumex 1 mg IV twice a day Kilo 30 mg by mouth daily for dyslipidemia. Resume Coreg at 6.25 mg twice a day and Norvasc 2.5 mg by mouth daily for hypertension. On double dose at home. S/P catheterization 06/09-severe three-vessel coronary artery disease Cardiothoracic surgery Dr. Langley tentatively scheduled for CABG next week Heparin and Aggrastat infusions, Brilinta discontinued on 06/11 Resp: Acute hypoxemic respiratory failure On nasal cannula 3 L/m O2 sat 93-94% Wean FiO2 as tolerated Chest x-ray reveals bilateral lower lobe infiltrates, slight improvement Bronchodilator therapy every 6 hours and as needed Initiate incentive spirometry-encourage use GI: Gastroesophageal reflux disease ADA diet. Protonix for GI prophylaxis. On Protonix home. Colace/as needed Senokot for bowel regimen : [place] will be placed for accurate I's and O's in a critically ill patient if required Endo: Diabetes mellitus type 2 Hyperglycemia of critical illness On lispro 15 units daily at home. Sliding-scale insulin with Accu-Cheks every 4 hours to maintain euglycemia. Will initiate insulin drip if unable to maintain tight euglycemic control Renal: Chronic kidney disease stage III. Creatinine 1.3 returned to baseline Monitor urine output closely. Accurate I's and O's Heme: Leukocytosis Normocytic anemia Monitor CBC/CMP daily. Follow trends ID: Possible community-acquired pneumonia History of MRSA treated with Zyvox Day 5 cefepime/Zithromax. Zyvox 2/2 history of MRSA pneumonia in sputum Blood cultures 2, sputum and UA NGTD Influenza negative FEN: Replace electrolytes as clinically indicated MSK: Osteoarthritis PT evaluate and treat Access - Utilize peripheral IV. Central line if indicated Prophylaxis - GI - Protonix - DVT - SCD/Heparin infusion Critical Care: Level 2. I discussed with patient, [employer]ATOR . Will transfer the patient to [facility] in a.m., The patient to remain in ICU, secondary to cardiac status monitoring requirement. Physician Breonna Maldonado MD Jun 12, 2016 14:56
[2016-06-12] MEDS: REMOVE OLD PATCH TD SCH (20:32)
[2016-06-13] VITALS (14 sets, daily range): BP systolic 110–137; BP diastolic 59–77; PULSE 69; RESP 16–25; TEMP 97.1–98.2; O2SAT 93–100
[2016-06-13] MEDS: HYDROmorphone HCL PF 1 MG/ML VIAL IV PUSH PRN ×5 (00:27→21:46)
[2016-06-13] MEDS: INSULIN ASPART SUPPLEMENTAL SCALE SQ SCH ×6 (04:00→20:00)
[2016-06-13] MEDS: CHLORHEXIDINE GLUCONATE 2 % 1 PACK (2 CLOTHS) TOP SCH (04:00)
[2016-06-13] MEDS: MORPHINE SULFATE 4 MG/ML INJ IV PRN ×6 (04:02→21:38)
[2016-06-13] MEDS: CEFEPIME INJ 2,000 MG in SODIUM CHLORIDE 0.9% INJ 100 ML IV SCH ×2 (04:04→16:18)
[2016-06-13] MEDS: AZITHROMYCIN INJ 500 MG in SODIUM CHLOR 0.9% 250 ML INJ 250 ML IV SCH (04:07)
[2016-06-13 05:23] LABS: AUTOMATED NEUTROPHIL # 4.7 TH/MM3 (1.8-7.7); BASOPHIL # 0.1 TH/MM3 (0-0.2); BASOPHIL % 0.9 % (0.0-2.0); EOSINOPHIL # 0.1 TH/MM3 (0-0.4); HEMATOCRIT 26.3 % (39.0-51.0); HEMO FLAGS DIFF FINAL; LYMPH % 23.8 % (9.0-44.0); LYMPHOCYTE # 1.7 TH/MM3 (1.0-4.8); MEAN CELL VOLUME 91.5 FL (80.0-100.0); MEAN CORPUSCULAR HEMOGLOBIN 30.3 PG (27.0-34.0); MEAN CORPUSCULAR HGB CONC 33.1 % (32.0-36.0); MONO % 7.4 % (0.0-8.0); NEUT % 65.9 % (16.0-70.0); PLATELET COUNT 199 TH/MM3 (150-450); RED BLOOD COUNT 2.88 MIL/MM3 (4.50-5.90); RED CELL DISTRIBUTION WIDTH 14.4 % (11.6-17.2); WHITE BLOOD COUNT 7.1 TH/MM3 (4.0-11.0)
[2016-06-13 05:34] LABS: APTT (PATIENT) 44.9 SEC (24.3-30.1)
[2016-06-13] MEDS: TIROFIBAN INFUSION INJ 250 ML IV SCH ×2 (06:39→11:33)
[2016-06-13] MEDS: SODIUM CHLORIDE 0.9% FLUSH 5 ML FLUSH IV FLUSH SCH ×2 (07:08→21:51)
--- NOTE | 2016-06-13 07:32 | HHI.PR ---
Subjective Remarks Paged by the nurse. Patient require increased O2 supplement overnight. Will do ABG, CXR and check BNP, labs. Patient admitts drinking water while lying flat on the bed and felt he did aspirated at that time. He is complaining of sob. Denies having any chest pain, lightheadedness, n/v/d/c. NO fevers or chills./ He did cough when he aspirated however he is not coughing now and feels improving. Counselled extensively, he expressed understanding. Objective Vitals Vital Signs Date Time Temp Pulse Resp B/P Pulse Ox O2 Delivery O2 Flow Rate FiO2 06/13/16 06:00 69 06/13/16 05:49 11 06/13/16 04:21 28 06/13/16 04:00 98.1 69 17 137/65 97 06/13/16 04:00 69 06/13/16 02:00 69 06/13/16 00:00 97.7 69 19 131/76 100 06/13/16 00:00 69 06/12/16 22:00 96 Partial Non-Rebreather 12.00 06/12/16 22:00 69 06/12/16 21:40 93 Partial Rebreather 13.00 06/12/16 21:35 86 Venturi Mask 50 06/12/16 20:00 69 06/12/16 20:00 97.6 69 17 145/76 92 06/12/16 19:58 92 Nasal Cannula 5.00 06/12/16 19:00 89 Nasal Cannula 5.00 06/12/16 18:00 69 06/12/16 16:00 97.6 69 20 118/67 93 06/12/16 16:00 69 06/12/16 14:00 Nasal Cannula 5.00 06/12/16 14:00 69 06/12/16 12:30 18 06/12/16 12:00 69 06/12/16 12:00 97.4 69 16 142/74 94 06/12/16 10:14 69 06/12/16 10:00 4.00 06/12/16 09:30 Nasal Cannula 3.00 06/12/16 09:16 94 Nasal Cannula 4.00 06/12/16 08:00 69 06/12/16 08:00 97.5 69 22 126/67 92 I/O 06/12/16 06/12/16 06/12/16 06/13/16 06/13/16 06/13/16 06:59 14:59 22:59 06:59 14:59 22:59 Intake Total 1080 ml 1309 ml 928 ml 720 ml Output Total 650 ml 900 ml 1335 ml 620 ml Balance 430 ml 409 ml -407 ml 100 ml Intake Oral 480 ml 720 ml 720 ml 500 ml IV Total 600 ml 589 ml 208 ml 220 ml Output Urine Total 650 ml 900 ml 1335 ml 620 ml Result Diagram: 06/13/16 0411 06/12/16 0459 Imaging Last Impressions Chest X-Ray 06/13/16 0000 Signed Impressions: Service Date/Time: Monday, June 13, 2016 07:43 - CONCLUSION: Right perihilar infiltrate is a new finding from the prior exam. Trace amount of fluid tracking along the minor fissure. Edgar Jones Jr., MD Lower Extremity Ultrasound 06/10/16 0000 Signed Impressions: Service Date/Time: Friday, June 10, 2016 16:44 - CONCLUSION: Venous mapping study as described. Gregorio Walsh MD Carotid Artery Ultrasound 06/10/16 0000 Signed Impressions: Service Date/Time: Friday, June 10, 2016 16:11 - CONCLUSION: Mild to moderate plaquing bilaterally with less than 50%% diameter stenosis by velocity criteria. Gregorio Walsh MD CT Angiography 06/07/16 0000 Signed Impressions: Service Date/Time: Tuesday, June 07, 2016 15:18 - CONCLUSION: 1. No pulmonary embolus. 2. Very small, bilateral pleural effusions and patchy bilateral airspace opacities. 3. Mildly enlarged mediastinal lymph nodes, nonspecific. 4. Several nodules up to 2 cm in size of the left adrenal gland, incompletely characterized but statistically most likely adenomas. There is a cyst of the left kidney. 5. Coronary artery calcification. Florencio Hamilton MD Objective Remarks GENERAL: Very pleasant , talkative 65 yo male well nourished, well developed patient, with sob. SKIN: Warm and dry. HEAD: Atraumatic. Normocephalic. EYES: Pupils equal and round. No scleral icterus. No injection or drainage. ENT: No nasal bleeding or discharge. Mucous membranes pink and moist. NECK: Trachea midline. No JVD. CARDIOVASCULAR: Regular rate and rhythm. RESPIRATORY: Decreased breath sounds bibasilar. No wheezing. GASTROINTESTINAL: Abdomen soft, non-tender, nondistended. Hepatic and splenic margins not palpable. MUSCULOSKELETAL: Extremities without clubbing, cyanosis, or edema. No obvious deformities. NEUROLOGICAL: Awake and alert. No obvious cranial nerve deficits. Motor grossly within normal limits. Five out of 5 muscle strength in the arms and legs. Normal speech. PSYCHIATRIC: Appropriate mood and affect; insight and judgment normal. A/P Problem List: (1) History of ventricular tachycardia ICD Code: Z86.79 Status: Acute (2) Diabetes mellitus ICD Code: E11.9 Status: Acute (3) Anemia ICD Code: D64.9 Status: Acute (4) Hyperparathyroidism ICD Code: E21.3 Status: Acute (5) Peripheral neuropathy ICD Code: G62.9 Status: Acute (6) Peripheral vascular disease ICD Code: I73.9 Status: Acute (7) Leukocytosis ICD Code: D72.829 Status: Acute (8) Chronic kidney disease, stage III (moderate) ICD Code: N18.3 Status: Acute (9) Dyslipidemia ICD Code: E78.5 Status: Acute (10) Hypertension ICD Code: I10 Status: Acute (11) Chronic systolic heart failure ICD Code: I50.22 Status: Acute (12) Coronary artery disease ICD Code: I25.10 Status: Acute (13) Acute respiratory failure with hypoxia ICD Code: J96.01 Status: Acute (14) SIRS (systemic inflammatory response syndrome) ICD Code: R65.10 Status: Acute Assessment and Plan Chronic systolic heart failure EF 25-30% with mild LVH and diffuse hypokinesis Peripheral vascular disease - history of right femoropopliteal with in situ saphenous vein grafting with thrombectomy of popliteal artery/anterior posterior tibial arteries [address] Mayes Coronary artery disease recent PCI/drug-eluting stent to RCA/PDA 04/[address] Kan secondary to inferior STEMI Dual-chamber defibrillator placed 05/[address] Yousif. DDD/70 Hypertension Dyslipidemia Elevated troponin Stent thrombosis RCA Severe CAD three-vessel LAD, circumflex, stented RCA- plan for CABG 06/17/16 Dr Langley Cardiac consultation/Dr. Kan cardiac management S/P left heart catheterization 06/09/16-left main 4050 percent occlusion, left circumflex 70% occlusion,thrombosed RCA Limited echocardiogram to eval LV function pending Continue amiodarone 200 mg by mouth daily for history of V. tach Continue Brilinta 90 mg twice a day and aspirin 81 mg daily for heart stent Resume Bumex 1 mg IV twice a day Kilo 30 mg by mouth daily for dyslipidemia. Resume Coreg at 6.25 mg twice a day and Norvasc 2.5 mg by mouth daily for hypertension. On double dose at home. S/P catheterization 06/09-severe three-vessel coronary artery disease Cardiothoracic surgery Dr. Langley tentatively scheduled for CABG on Thursday Heparin and Aggrastat infusions, Brilinta discontinued on 06/11 [place] for accurate I's and O's in a critically ill patient if required Acute hypoxemic respiratory failure On nasal cannula 3 L/m O2 sat 93-94%, however on 06/13/16 noted more sob and requiring increasing O2 on venti mask now. Wean O2 as tolerated Bronchodilator therapy every 6 hours and as needed Initiate incentive spirometry-encourage use Requiring more O2 on 06/13. Will do ABG, CXR, BNP,check labs cbc, bmp, mag Chest x-ray reveals bilateral lower lobe infiltrates. Repeat CXR 06/13/16 Right perihilar infiltrate is a new finding from the prior exam. Trace amount of fluid tracking along the minor fissure. BNP in 500s Continue IV antibiotics for aspiration PNA. Wean off O2. Aspiration precautions discussed with the patient at length, he expressed understanding. Gastroesophageal reflux disease ADA diet. Protonix for GI prophylaxis. On Protonix home. Colace/as needed Senokot for bowel regimen Diabetes mellitus type 2 Hyperglycemia of critical illness On lispro 15 units daily at home. Sliding-scale insulin with Accu-Cheks every 4 hours to maintain euglycemia. Will initiate insulin drip if unable to maintain tight euglycemic control Peripheral neuropathy secondary to diabetes Anxiety Neurontin 300 mg by mouth 3 times a day for neuropathy. Acetaminophen for fever [place]/morphine for pain management, [place] to 10/325mg, Dilaudid added every 4 hours when necessary for pain Xanax 0.5 mg every 8 hours when necessary Chronic kidney disease stage III. Creatinine 1.3 returned to baseline Monitor urine output closely. Accurate I's and O's Leukocytosis Normocytic anemia Monitor CBC/CMP daily. Follow trends Possible community-acquired pneumonia History of MRSA treated with Zyvox Day 5 cefepime/Zithromax. Zyvox 2/2 history of MRSA pneumonia in sputum Blood cultures 2, sputum and UA NGTD Influenza negative FEN: Replace electrolytes as clinically indicated Osteoarthritis PT evaluate and treat Prophylaxis - GI - Protonix - DVT - SCD/Heparin infusion Discussed with the nurse, patient Problem Qualifiers (1) Diabetes mellitus: Qualified Code: E11.8 - Type 2 diabetes mellitus with complication, with long- term current use of insulin (2) Anemia: Qualified Code: D64.9 - Anemia, unspecified type (3) Peripheral neuropathy: Qualified Code: G62.9 - Peripheral polyneuropathy (4) Leukocytosis: Qualified Code: D72.829 - Leukocytosis, unspecified type (5) Coronary artery disease: Qualified Code: I25.10 - Coronary artery disease involving [place] coronary artery of [place] heart, angina presence unspecified Susan Dickey MD Jun 13, 2016 07:32
[2016-06-13 07:40] LABS: BLOOD GAS BASE EXCESS -0.9 mmol/L (-2-2); BLOOD GAS CARBOXYHEMOGLOBIN 2.1 % (0-4); BLOOD GAS HCO3 24 mmol/L (22-26); BLOOD GAS METHEMOGLOBIN 1.1 % (0-2); BLOOD GAS O2 HGB SATURATION 96 % (90-100); BLOOD GAS OXYGEN CONTENT 11.4 Vol % (12.0-20.0); BLOOD GAS PCO2 42 mmHg (38-42); BLOOD GAS PO2 112 mmHg (61-120); BLOOD GAS TOTAL HGB 8.3 G/DL (12.0-16.0); CRITICAL VALUE NO; LITER FLOW 15 L/M; TEMP CORR TO 98.6
[2016-06-13 07:41] LABS: DRAW SITE LT RADIAL; FIO2 60 %; NUMBER OF ARTERIAL PUNCTURES 1; STAT YES; ULNAR PULSE PRESENT
[2016-06-13] MEDS ORDERED: POTASSIUM CHLOR 40 MEQ PREMIX 100 ML IV PRN ×2 (07:45)
[2016-06-13] MEDS ORDERED: POTASSIUM PHOSPHATE MONOBASIC 500 MG TAB PO PRN (07:45)
[2016-06-13] MEDS ORDERED: POTASSIUM CHLOR 20 MEQ PREMIX 100 ML IV PRN ×2 (07:45)
[2016-06-13] MEDS ORDERED: POTASSIUM PHOSPHATE MONOBASIC 500 MG TAB PO/TUBE PRN (07:45)
[2016-06-13] MEDS ORDERED: POTASSIUM PHOSPHATE INJ 30 MMOL in SODIUM CHLOR 0.9% 250 ML INJ 250 ML IV PRN (07:45)
[2016-06-13] MEDS ORDERED: MAGNESIUM OXIDE 400 MG TAB PO PRN (07:45)
[2016-06-13] MEDS ORDERED: MAGNESIUM SULFATE INJ 4 GM in SODIUM CHLORIDE 0.9% INJ 92 ML IV PRN (07:45)
[2016-06-13] MEDS ORDERED: MAGNESIUM SULFATE INJ 2 GM in SODIUM CHLORIDE 0.9% INJ 96 ML IV PRN (07:45)
[2016-06-13] MEDS ORDERED: SODIUM PHOSPHATE INJ 30 MMOL in SODIUM CHLOR 0.9% 250 ML INJ 240 ML IV PRN (07:45)
--- NOTE | 2016-06-13 08:20 | RADRPT ---
EXAM DATE/TIME: 06/13/2016 07:43 [place] COMPARISON: CHEST SINGLE AP, June 08, 2016, 5:17. INDICATIONS : Short of breath. MEDICAL HISTORY : Myocardial infarction. SURGICAL HISTORY : Pacemaker placed in 2016 ENCOUNTER: Subsequent ACUITY: 2 days PAIN SCORE: 2/10 LOCATION: Bilateral cranial FINDINGS: 2 portable frontal views of the chest show consolidation involving the right perihilar region. No eff usions observed. The heart is at the upper limits of normal in terms of size. A trace amount of fluid is seen tracking within the minor fissure on the right. No large effusions. Pacing device overlies t he left chest. Aorta is calcified. CONCLUSION: Right perihilar infiltrate is a new finding from the prior exam. Trace amount of fluid tracking kinjal g the minor fissure. Edgar Jones Jr., MD on June 13, 2016 at 8:17 Board Certified Radiologist. This report was verified electronically.
[2016-06-13] MEDS: CARVEDILOL 6.25 MG TAB PO SCH ×2 (08:21→21:51)
[2016-06-13] MEDS: LINEZOLID 600 MG TAB PO SCH ×2 (08:21→21:50)
[2016-06-13] MEDS: ASPIRIN 81 MG CHEW TAB PO SCH (08:21)
[2016-06-13] MEDS: DOCUSATE SODIUM 100 MG CAP PO SCH ×2 (08:21→21:00)
[2016-06-13] MEDS: ATORVASTATIN 20 MG TAB PO SCH (08:21)
[2016-06-13] MEDS: ACETAMINOPHEN/HYDROcodone 325 MG/5 MG TAB PO PRN ×2 (08:21→12:41)
[2016-06-13] MEDS: GABAPENTIN 300 MG CAP PO SCH ×3 (08:21→18:12)
[2016-06-13] MEDS: amLODIPine BESYLATE 5 MG TAB PO SCH (08:22)
[2016-06-13] MEDS: PANTOPRAZOLE SOD 40 MG DELAYED RELEASE TAB PO SCH (08:22)
[2016-06-13] MEDS: NICOTINE 14 MG/24 HR PATCH TD SCH (08:22)
[2016-06-13] MEDS: INSULIN DETEMIR 100 UNITS/ML VIAL SQ SCH ×2 (08:22→21:00)
[2016-06-13] MEDS: ALPRAZolam 0.5 MG TAB PO PRN (08:22)
[2016-06-13] MEDS: ARTIFICIAL TEARS OPTH SOLN 15 ML BTL EACH EYE SCH ×3 (08:23→18:00)
[2016-06-13] MEDS: SODIUM CHLORIDE 0.9% FLUSH 5 ML FLUSH IV FLUSH PRN ×2 (08:23→18:13)
[2016-06-13] MEDS: BUMETANIDE INJ 1 MG/4 ML VIAL IV PUSH SCH ×2 (08:23→18:12)
[2016-06-13] MEDS: SODIUM CHLORIDE 0.9% FLUSH 5 ML FLUSH IVF SCH ×2 (09:00→21:00)
[2016-06-13] MEDS: AMIODARONE 200 MG TAB PO SCH (09:49)
[2016-06-13 13:37] LABS: MAGNESIUM 2.2 MG/DL (1.5-2.5)
--- NOTE | 2016-06-13 14:38 | PD.CAR.PN ---
CVT Progress Note Subjective/Hospital Course: 65-year-old male. Date of admission 06/07/2016. Past medical history includes recent heart catheterization 04/30/[address] Kan secondary to an inferior STEMI with PCI/MERE placed placed to the RCA and PDA. Left main was 30%. LAD was 40% proximal/80% diagonal. Left circumflex was 30%. EF was 20/5/30 percent. Im [place] devices placed as well. Patient had prolonged intubation During this hospitalization developed V. tach as well and a dual-chamber defibrillator was placed by Dr. Yousif /DDD 70 on 05/27. presented this admission , admitted this admission with NSTEMI, resp failure with hypoxia , underwent cardiac cath by YADI TeixeiraBA to stent thrombosis of RCA 06/09 pt was on Brilinta at home PMH: CAD, with 2 prior stents by the hypertension, diabetes,'s chronic systolic heart failure EF 20-25% , , peripheral vascular disease with a right femoropopliteal in situ saphenous vein revision [address] Mayes with thrombolytic colectomy to the popliteal artery and anterior and posterior tibial arteries, 06/13 NO PAIN DURING THE NIGHT OOB with assistance on aggrastat and heparin Objective: GENERAL: SKIN: Warm and dry./ both heel ulcers dry necrotic tissue / improving HEAD: Normocephalic. EYES: No scleral icterus. No injection or drainage. NECK: Supple, trachea midline. No JVD or lymphadenopathy. CARDIOVASCULAR: Regular rate and rhythm without murmurs, gallops, or rubs. RESPIRATORY: Breath sounds equal bilaterally. No accessory muscle use. GASTROINTESTINAL: Abdomen soft, non-tender, nondistended. MUSCULOSKELETAL: No cyanosis, or edema. BACK: Nontender without obvious deformity. No CVA tenderness. Vital Signs Date Time Temp Pulse Resp B/P Pulse Ox O2 Delivery O2 Flow Rate FiO2 06/13/16 10:27 94 Nasal Cannula 5.00 06/13/16 10:00 69 06/13/16 09:00 93 Nasal Cannula 6.00 06/13/16 08:00 99 Partial Non-Rebreather 15.00 06/13/16 08:00 69 06/13/16 08:00 97.1 69 18 137/77 93 06/13/16 06:00 69 06/13/16 05:49 11 06/13/16 04:21 28 06/13/16 04:00 98.1 69 17 137/65 97 06/13/16 04:00 69 06/13/16 02:00 69 06/13/16 00:00 97.7 69 19 131/76 100 06/13/16 00:00 69 06/12/16 22:00 96 Partial Non-Rebreather 12.00 06/12/16 22:00 69 06/12/16 21:40 93 Partial Rebreather 13.00 06/12/16 21:35 86 Venturi Mask 50 06/12/16 20:00 69 06/12/16 20:00 97.6 69 17 145/76 92 06/12/16 19:58 92 Nasal Cannula 5.00 06/12/16 19:00 89 Nasal Cannula 5.00 06/12/16 18:00 69 06/12/16 16:00 97.6 69 20 118/67 93 06/12/16 16:00 69 Labs: Laboratory Tests Test 06/13/16 06/13/16 06/13/16 04:11 07:28 13:05 White Blood Count 7.1 TH/MM3 (4.0-11.0) Red Blood Count 2.88 MIL/MM3 (4.50-5.90) Hemoglobin 8.7 GM/DL (13.0-17.0) Hematocrit 26.3 % (39.0-51.0) Mean Corpuscular Volume 91.5 FL (80.0-100.0) Mean Corpuscular Hemoglobin 30.3 PG (27.0-34.0) Mean Corpuscular Hemoglobin 33.1 % Concent (32.0-36.0) Red Cell Distribution Width 14.4 % (11.6-17.2) Platelet Count 199 TH/MM3 (150-450) Mean Platelet Volume 8.8 FL (7.0-11.0) Neutrophils (%) (Auto) 65.9 % (16.0-70.0) Lymphocytes (%) (Auto) 23.8 % (9.0-44.0) Monocytes (%) (Auto) 7.4 % (0.0-8.0) Eosinophils (%) (Auto) 2.0 % (0.0-4.0) Basophils (%) (Auto) 0.9 % (0.0-2.0) Neutrophils # (Auto) 4.7 TH/MM3 (1.8-7.7) Lymphocytes # (Auto) 1.7 TH/MM3 (1.0-4.8) Monocytes # (Auto) 0.5 TH/MM3 (0-0.9) Eosinophils # (Auto) 0.1 TH/MM3 (0-0.4) Basophils # (Auto) 0.1 TH/MM3 (0-0.2) CBC Comment DIFF FINAL Differential Comment Activated Partial 44.9 SEC Thromboplast Time (24.3-30.1) B-Type Natriuretic Peptide 570 PG/ML (0-100) Blood Gas Puncture Site LT RADIAL Blood Gas Patient Temperature 98.6 Blood Gas HCO3 24 mmol/L (22-26) Blood Gas Base Excess -0.9 mmol/L (-2-2) Blood Gas Oxygen Saturation 96 % (90-100) Arterial Blood pH 7.37 (7.380-7.420) Arterial Blood Partial 42 mmHg (38-42) Pressure CO2 Arterial Blood Partial 112 mmHg Pressure O2 (61-120) Arterial Blood Oxygen Content 11.4 Vol % (12.0-20.0) Arterial Blood 2.1 % (0-4) Carboxyhemoglobin Arterial Blood Methemoglobin 1.1 % (0-2) Blood Gas Hemoglobin 8.3 G/DL (12.0-16.0) Oxygen Delivery Device Partial Rebreather Blood Gas Liter Flow 15 L/M Blood Gas Inspired Oxygen 60 % Phosphorus Level 3.9 MG/DL (2.5-4.9) Magnesium Level 2.2 MG/DL (1.5-2.5) Result Diagram: 06/13/16 0411 06/12/16 0459 Telemetry: NSR (1) NSTEMI (non-ST elevated myocardial infarction) Plan: s/p POBA RCA Schedule CABG on Cont current med management OOB to chair (2) Acute respiratory failure with hypoxia (3) SIRS (systemic inflammatory response syndrome) (4) History of ventricular tachycardia (5) Chronic kidney disease, stage III (moderate) (6) Chronic systolic heart failure (7) Dyslipidemia (8) Hypertension (9) Peripheral vascular disease (10) Peripheral neuropathy (11) Coronary artery disease (12) Pressure ulcer of left heel, unstageable (13) Pressure ulcer of right heel, unstageable Problem Qualifiers (1) Peripheral neuropathy: Qualified Code: G62.9 - Peripheral polyneuropathy (2) Coronary artery disease: Qualified Code: I25.10 - Coronary artery disease involving [place] coronary artery of [place] heart, angina presence unspecified Nicole Lazar Jun 13, 2016 14:38
[2016-06-13] MEDS: HEPARIN-D5W INJ 250 ML IV SCH (16:21)
[2016-06-13] MEDS: REMOVE OLD PATCH TD SCH (21:00)
[2016-06-14] VITALS (16 sets, daily range): BP systolic 93–120; BP diastolic 52–61; PULSE 69–70; RESP 14–20; TEMP 97.1–98.7; O2SAT 92–98
[2016-06-14] MEDS: MORPHINE SULFATE 4 MG/ML INJ IV PRN ×6 (00:11→23:46)
[2016-06-14] MEDS: TIROFIBAN INFUSION INJ 250 ML IV SCH ×2 (00:21→14:56)
[2016-06-14] MEDS: HYDROmorphone HCL PF 1 MG/ML VIAL IV PUSH PRN ×4 (03:49→20:27)
[2016-06-14] MEDS: CEFEPIME INJ 2,000 MG in SODIUM CHLORIDE 0.9% INJ 100 ML IV SCH ×2 (03:50→14:56)
[2016-06-14] MEDS: AZITHROMYCIN INJ 500 MG in SODIUM CHLOR 0.9% 250 ML INJ 250 ML IV SCH (03:51)
[2016-06-14] MEDS: CHLORHEXIDINE GLUCONATE 2 % 1 PACK (2 CLOTHS) TOP SCH (03:51)
[2016-06-14] MEDS: INSULIN ASPART SUPPLEMENTAL SCALE SQ SCH ×7 (03:51→23:54)
[2016-06-14 05:16] LABS: AUTOMATED NEUTROPHIL # 4.3 TH/MM3 (1.8-7.7); BASOPHIL % 0.7 % (0.0-2.0); EOSINOPHIL # 0.1 TH/MM3 (0-0.4); EOSINOPHIL % 1.9 % (0.0-4.0); HEMO FLAGS DIFF FINAL; LYMPH % 27.5 % (9.0-44.0); LYMPHOCYTE # 1.9 TH/MM3 (1.0-4.8); MEAN CELL VOLUME 91.4 FL (80.0-100.0); MEAN CORPUSCULAR HEMOGLOBIN 30.6 PG (27.0-34.0); MEAN CORPUSCULAR HGB CONC 33.5 % (32.0-36.0); MONO % 6.2 % (0.0-8.0); NEUT % 63.7 % (16.0-70.0); PLATELET COUNT 205 TH/MM3 (150-450); RED BLOOD COUNT 2.41 MIL/MM3 (4.50-5.90); RED CELL DISTRIBUTION WIDTH 14.5 % (11.6-17.2); WHITE BLOOD COUNT 6.8 TH/MM3 (4.0-11.0)
[2016-06-14 05:18] LABS: APTT (PATIENT) 43.3 SEC (24.3-30.1)
[2016-06-14 05:38] LABS: BICARBONATE 25.9 MEQ/L (21.0-32.0); POTASSIUM 4.5 MEQ/L (3.5-5.1)
[2016-06-14] MEDS ORDERED: SODIUM CHLOR 0.9% 250 ML INJ 250 ML IV ONE (06:00)
[2016-06-14] MEDS: SODIUM CHLORIDE 0.9% FLUSH 5 ML FLUSH IV FLUSH SCH ×2 (08:15→20:17)
[2016-06-14] MEDS: ASPIRIN 81 MG CHEW TAB PO SCH (08:16)
[2016-06-14] MEDS: BUMETANIDE INJ 1 MG/4 ML VIAL IV PUSH SCH ×2 (08:16→16:25)
[2016-06-14] MEDS: amLODIPine BESYLATE 5 MG TAB PO SCH (08:16)
[2016-06-14] MEDS: DOCUSATE SODIUM 100 MG CAP PO SCH ×2 (08:16→20:16)
[2016-06-14] MEDS: NICOTINE 14 MG/24 HR PATCH TD SCH (08:16)
[2016-06-14] MEDS: LINEZOLID 600 MG TAB PO SCH ×2 (08:16→20:14)
[2016-06-14] MEDS: ARTIFICIAL TEARS OPTH SOLN 15 ML BTL EACH EYE SCH ×3 (08:16→18:00)
[2016-06-14] MEDS: GABAPENTIN 300 MG CAP PO SCH ×3 (08:17→16:25)
[2016-06-14] MEDS: ALPRAZolam 0.5 MG TAB PO PRN ×2 (08:17→16:33)
[2016-06-14] MEDS: SODIUM CHLORIDE 0.9% FLUSH 5 ML FLUSH IVF SCH ×2 (08:17→20:17)
[2016-06-14] MEDS: PANTOPRAZOLE SOD 40 MG DELAYED RELEASE TAB PO SCH (08:17)
[2016-06-14] MEDS: ATORVASTATIN 20 MG TAB PO SCH (08:17)
[2016-06-14] MEDS: INSULIN DETEMIR 100 UNITS/ML VIAL SQ SCH ×2 (08:17→20:14)
[2016-06-14] MEDS: CARVEDILOL 6.25 MG TAB PO SCH ×2 (08:17→20:16)
[2016-06-14] MEDS: AMIODARONE 200 MG TAB PO SCH (08:17)
--- NOTE | 2016-06-14 08:37 | HHI.PR ---
Subjective Remarks In the chair , appears in nad. Says she is not coughing much , says she is using IS. No fever or chills. SOB improved. Denies having any chest pain , nausea, lightheadedness, diaphoresis. Objective Vitals Vital Signs Date Time Temp Pulse Resp B/P Pulse Ox O2 Delivery O2 Flow Rate FiO2 06/14/16 06:00 69 06/14/16 04:31 15 06/14/16 04:00 93 Nasal Cannula 5.00 06/14/16 04:00 98.3 69 14 117/57 93 06/14/16 04:00 69 06/14/16 02:00 69 06/14/16 00:23 13 06/14/16 00:00 97.1 69 18 119/60 93 06/14/16 00:00 93 Nasal Cannula 5.00 06/14/16 00:00 69 06/13/16 22:00 69 06/13/16 21:48 97 Nasal Cannula 5.00 06/13/16 20:00 98.2 69 25 110/59 94 06/13/16 20:00 94 Nasal Cannula 5.00 06/13/16 20:00 69 06/13/16 18:00 69 06/13/16 16:00 69 06/13/16 16:00 98.0 69 16 120/59 100 06/13/16 16:00 100 Nasal Cannula 6.00 06/13/16 14:00 69 06/13/16 12:00 97.6 69 20 126/76 95 06/13/16 12:00 69 06/13/16 12:00 95 Nasal Cannula 6.00 06/13/16 10:27 94 Nasal Cannula 5.00 06/13/16 10:00 69 06/13/16 09:00 93 Nasal Cannula 6.00 I/O 06/13/16 06/13/16 06/13/16 06/14/16 06/14/16 06/14/16 07:00 15:00 23:00 07:00 15:00 23:00 Intake Total 720 ml 982 ml 984 ml 810 ml Output Total 620 ml 750 ml 840 ml 740 ml Balance 100 ml 232 ml 144 ml 70 ml Intake Oral 500 ml 480 ml 720 ml 240 ml IV Total 220 ml 502 ml 264 ml 570 ml Output Urine Total 620 ml 750 ml 840 ml 740 ml # Bowel Movements 1 Result Diagram: 06/14/16 0435 06/14/16 0435 Imaging Last Impressions Chest X-Ray 06/13/16 0000 Signed Impressions: Service Date/Time: Monday, June 13, 2016 07:43 - CONCLUSION: Right perihilar infiltrate is a new finding from the prior exam. Trace amount of fluid tracking along the minor fissure. Edgar Jones Jr., MD Lower Extremity Ultrasound 06/10/16 0000 Signed Impressions: Service Date/Time: Friday, June 10, 2016 16:44 - CONCLUSION: Venous mapping study as described. Gregorio Walsh MD Carotid Artery Ultrasound 06/10/16 0000 Signed Impressions: Service Date/Time: Friday, June 10, 2016 16:11 - CONCLUSION: Mild to moderate plaquing bilaterally with less than 50%% diameter stenosis by velocity criteria. Gregorio Walsh MD CT Angiography 06/07/16 0000 Signed Impressions: Service Date/Time: Tuesday, June 07, 2016 15:18 - CONCLUSION: 1. No pulmonary embolus. 2. Very small, bilateral pleural effusions and patchy bilateral airspace opacities. 3. Mildly enlarged mediastinal lymph nodes, nonspecific. 4. Several nodules up to 2 cm in size of the left adrenal gland, incompletely characterized but statistically most likely adenomas. There is a cyst of the left kidney. 5. Coronary artery calcification. Florencio Hamilton MD Objective Remarks GENERAL: Very pleasant , talkative 65 yo male well nourished, well developed patient, less sob, on 5L NC SKIN: Warm and dry. HEAD: Atraumatic. Normocephalic. EYES: Pupils equal and round. No scleral icterus. No injection or drainage. ENT: No nasal bleeding or discharge. Mucous membranes pink and moist. NECK: Trachea midline. No JVD. CARDIOVASCULAR: Regular rate and rhythm. RESPIRATORY: Decreased breath sounds bibasilar. No wheezing. GASTROINTESTINAL: Abdomen soft, non-tender, nondistended. Hepatic and splenic margins not palpable. MUSCULOSKELETAL: Extremities without clubbing, cyanosis, or edema. No obvious deformities. NEUROLOGICAL: Awake and alert. No obvious cranial nerve deficits. Motor grossly within normal limits. Five out of 5 muscle strength in the arms and legs. Normal speech. PSYCHIATRIC: Appropriate mood and affect; insight and judgment normal. A/P Problem List: (1) History of ventricular tachycardia ICD Code: Z86.79 Status: Acute (2) Diabetes mellitus ICD Code: E11.9 Status: Acute (3) Anemia ICD Code: D64.9 Status: Acute (4) Hyperparathyroidism ICD Code: E21.3 Status: Acute (5) Peripheral neuropathy ICD Code: G62.9 Status: Acute (6) Peripheral vascular disease ICD Code: I73.9 Status: Acute (7) Leukocytosis ICD Code: D72.829 Status: Acute (8) Chronic kidney disease, stage III (moderate) ICD Code: N18.3 Status: Acute (9) Dyslipidemia ICD Code: E78.5 Status: Acute (10) Hypertension ICD Code: I10 Status: Acute (11) Chronic systolic heart failure ICD Code: I50.22 Status: Acute (12) Coronary artery disease ICD Code: I25.10 Status: Acute (13) Acute respiratory failure with hypoxia ICD Code: J96.01 Status: Acute (14) SIRS (systemic inflammatory response syndrome) ICD Code: R65.10 Status: Acute Assessment and Plan Chronic systolic heart failure EF 25-30% with mild LVH and diffuse hypokinesis Peripheral vascular disease - history of right femoropopliteal with in situ saphenous vein grafting with thrombectomy of popliteal artery/anterior posterior tibial arteries [address] Mayes Coronary artery disease recent PCI/drug-eluting stent to RCA/PDA 04/[address] Kan secondary to inferior STEMI Dual-chamber defibrillator placed 05/[address] Yousif. DDD/70 Hypertension Dyslipidemia Elevated troponin Stent thrombosis RCA Severe CAD three-vessel LAD, circumflex, stented RCA- plan for CABG 06/17/16 Dr Langley Cardiac consultation/Dr. Kan cardiac management S/P left heart catheterization 06/09/16-left main 4050 percent occlusion, left circumflex 70% occlusion,thrombosed RCA Limited echocardiogram to eval LV function pending Continue amiodarone 200 mg by mouth daily for history of V. tach Continue Brilinta 90 mg twice a day and aspirin 81 mg daily for heart stent Resume Bumex 1 mg IV twice a day Kilo 30 mg by mouth daily for dyslipidemia. Resume Coreg at 6.25 mg twice a day and Norvasc 2.5 mg by mouth daily for hypertension. On double dose at home. S/P catheterization 06/09-severe three-vessel coronary artery disease Cardiothoracic surgery Dr. Langley tentatively scheduled for CABG on Thursday Heparin and Aggrastat infusions, Brilinta discontinued on 06/11 [place] for accurate I's and O's in a critically ill patient if required Acute hypoxemic respiratory failure On nasal cannula 3 L/m O2 sat 93-94%, however on 06/13/16 noted more sob and requiring increasing O2 on venti mask now. Wean O2 as tolerated Bronchodilator therapy every 6 hours and as needed Initiate incentive spirometry-encourage use Requiring more O2 on 06/13. Will do ABG, CXR, BNP,check labs cbc, bmp, mag Chest x-ray reveals bilateral lower lobe infiltrates. Repeat CXR 06/13/16 Right perihilar infiltrate is a new finding from the prior exam. Trace amount of fluid tracking along the minor fissure. BNP in 500s Continue IV antibiotics for aspiration PNA. Wean off O2. Aspiration precautions discussed with the patient at length, he expressed understanding. Gastroesophageal reflux disease ADA diet. Protonix for GI prophylaxis. On Protonix home. Colace/as needed Senokot for bowel regimen Diabetes mellitus type 2 Hyperglycemia of critical illness On lispro 15 units daily at home. Sliding-scale insulin with Accu-Cheks every 4 hours to maintain euglycemia. Will initiate insulin drip if unable to maintain tight euglycemic control Peripheral neuropathy secondary to diabetes Anxiety Neurontin 300 mg by mouth 3 times a day for neuropathy. Acetaminophen for fever [place]/morphine for pain management, [place] to 10/325mg, Dilaudid added every 4 hours when necessary for pain Xanax 0.5 mg every 8 hours when necessary Chronic kidney disease stage III. Creatinine 1.3 returned to baseline Monitor urine output closely. Accurate I's and O's Leukocytosis Normocytic anemia Monitor CBC/CMP daily. Follow trends Possible community-acquired pneumonia History of MRSA treated with Zyvox Day 5 cefepime/Zithromax. Zyvox 2/2 history of MRSA pneumonia in sputum Blood cultures 2, sputum and UA NGTD Influenza negative FEN: Replace electrolytes as clinically indicated Osteoarthritis PT evaluate and treat Prophylaxis - GI - Protonix - DVT - SCD/Heparin infusion Discussed with the nurse, patient Problem Qualifiers (1) Diabetes mellitus: Qualified Code: E11.8 - Type 2 diabetes mellitus with complication, with long- term current use of insulin (2) Anemia: Qualified Code: D64.9 - Anemia, unspecified type (3) Peripheral neuropathy: Qualified Code: G62.9 - Peripheral polyneuropathy (4) Leukocytosis: Qualified Code: D72.829 - Leukocytosis, unspecified type (5) Coronary artery disease: Qualified Code: I25.10 - Coronary artery disease involving [place] coronary artery of [place] heart, angina presence unspecified Susan Dickey MD Jun 14, 2016 08:37
[2016-06-14] MEDS: SODIUM CHLORIDE 0.9% FLUSH 5 ML FLUSH IV FLUSH PRN ×4 (09:59→23:46)
[2016-06-14] MEDS: HEPARIN-D5W INJ 250 ML IV SCH (11:56)
[2016-06-14 16:59] LABS: HEMATOCRIT 23.9 % (39.0-51.0); REVIEW FLAG FINAL
[2016-06-14] MEDS: REMOVE OLD PATCH TD SCH (20:18)
[2016-06-15] VITALS (14 sets, daily range): BP systolic 98–146; BP diastolic 53–65; PULSE 69; RESP 13–21; TEMP 98–98.5; O2SAT 93–96
[2016-06-15] MEDS: TIROFIBAN INFUSION INJ 250 ML IV SCH ×2 (03:01→16:47)
[2016-06-15] MEDS: CEFEPIME INJ 2,000 MG in SODIUM CHLORIDE 0.9% INJ 100 ML IV SCH ×2 (03:02→14:50)
[2016-06-15] MEDS: AZITHROMYCIN INJ 500 MG in SODIUM CHLOR 0.9% 250 ML INJ 250 ML IV SCH (03:02)
[2016-06-15] MEDS: CHLORHEXIDINE GLUCONATE 2 % 1 PACK (2 CLOTHS) TOP SCH (03:02)
[2016-06-15] MEDS: HEPARIN-D5W INJ 250 ML IV SCH ×2 (03:05→20:17)
[2016-06-15] MEDS: INSULIN ASPART SUPPLEMENTAL SCALE SQ SCH ×6 (04:00→23:46)
[2016-06-15] MEDS: SODIUM CHLORIDE 0.9% FLUSH 5 ML FLUSH IV FLUSH PRN (04:43)
[2016-06-15] MEDS: HYDROmorphone HCL PF 1 MG/ML VIAL IV PUSH PRN ×5 (04:43→23:47)
[2016-06-15] MEDS: MORPHINE SULFATE 4 MG/ML INJ IV PRN ×6 (06:13→22:32)
[2016-06-15 07:08] LABS: APTT (PATIENT) 38.3 SEC (24.3-30.1)
--- NOTE | 2016-06-15 07:29 | HHI.PR ---
Subjective Remarks Denies having any chest pain, sob, nausea, diaphoresis. Denies n/v/d/c. Says he feels very anxious regarding upcoming surgery. Patient also says his neuropathic pain is worse. Objective Vitals Vital Signs Date Time Temp Pulse Resp B/P Pulse Ox O2 Delivery O2 Flow Rate FiO2 06/15/16 06:20 20 06/15/16 06:00 69 06/15/16 05:42 20 06/15/16 04:00 98.0 69 13 98/55 95 06/15/16 04:00 69 06/15/16 04:00 95 Nasal Cannula 5.00 06/15/16 02:00 69 06/15/16 00:00 98.4 69 16 109/60 94 06/15/16 00:00 69 06/15/16 00:00 94 Nasal Cannula 5.00 06/14/16 22:00 69 06/14/16 20:43 94 Nasal Cannula 5.00 06/14/16 20:00 94 Nasal Cannula 5.00 06/14/16 20:00 69 06/14/16 20:00 97.8 69 14 118/60 94 06/14/16 18:00 69 06/14/16 16:00 98.3 69 16 106/57 95 06/14/16 16:00 69 06/14/16 16:00 95 Nasal Cannula 5.00 06/14/16 14:00 69 06/14/16 12:00 98.7 69 17 112/55 98 06/14/16 12:00 97 Nasal Cannula 5.00 06/14/16 12:00 69 06/14/16 10:35 98.7 69 18 93/52 94 06/14/16 10:20 98.1 69 20 102/61 97 06/14/16 10:00 69 06/14/16 09:10 95 Nasal Cannula 5.00 06/14/16 08:00 97.9 69 16 120/58 92 06/14/16 08:00 95 Nasal Cannula 5.00 06/14/16 08:00 70 I/O 06/14/16 06/14/16 06/14/16 06/15/16 06/15/16 06/15/16 07:00 15:00 23:00 07:00 15:00 23:00 Intake Total 810 ml 1229 ml 388 ml 560 ml Output Total 740 ml 1565 ml 1325 ml 650 ml Balance 70 ml -336 ml -937 ml -90 ml Intake Oral 240 ml 600 ml IV Total 570 ml 329 ml 388 ml 560 ml Packed Cells 300 ml Output Urine Total 740 ml 1565 ml 1325 ml 650 ml # Bowel Movements 1 Result Diagram: 06/14/16 1605 06/14/16 0435 Imaging Last Impressions Chest X-Ray 06/13/16 0000 Signed Impressions: Service Date/Time: Monday, June 13, 2016 07:43 - CONCLUSION: Right perihilar infiltrate is a new finding from the prior exam. Trace amount of fluid tracking along the minor fissure. Edgar Jones Jr., MD Lower Extremity Ultrasound 06/10/16 0000 Signed Impressions: Service Date/Time: Friday, June 10, 2016 16:44 - CONCLUSION: Venous mapping study as described. Gregorio Walsh MD Carotid Artery Ultrasound 06/10/16 0000 Signed Impressions: Service Date/Time: Friday, June 10, 2016 16:11 - CONCLUSION: Mild to moderate plaquing bilaterally with less than 50%% diameter stenosis by velocity criteria. Gregorio Walsh MD CT Angiography 06/07/16 0000 Signed Impressions: Service Date/Time: Tuesday, June 07, 2016 15:18 - CONCLUSION: 1. No pulmonary embolus. 2. Very small, bilateral pleural effusions and patchy bilateral airspace opacities. 3. Mildly enlarged mediastinal lymph nodes, nonspecific. 4. Several nodules up to 2 cm in size of the left adrenal gland, incompletely characterized but statistically most likely adenomas. There is a cyst of the left kidney. 5. Coronary artery calcification. Florencio Hamilton MD Objective Remarks GENERAL: Very pleasant , talkative 65 yo male well nourished, well developed patient, less sob, on 5L [place] SKIN: Warm and dry. HEAD: Atraumatic. Normocephalic. EYES: Pupils equal and round. No scleral icterus. No injection or drainage. ENT: No nasal bleeding or discharge. Mucous membranes pink and moist. NECK: Trachea midline. No JVD. CARDIOVASCULAR: Regular rate and rhythm. RESPIRATORY: Decreased breath sounds bibasilar. No wheezing. GASTROINTESTINAL: Abdomen soft, non-tender, nondistended. Hepatic and splenic margins not palpable. MUSCULOSKELETAL: Extremities without clubbing, cyanosis, or edema. No obvious deformities. NEUROLOGICAL: Awake and alert. No obvious cranial nerve deficits. Motor grossly within normal limits. Five out of 5 muscle strength in the arms and legs. Normal speech. PSYCHIATRIC: Appropriate mood and affect; insight and judgment normal. A/P Problem List: (1) History of ventricular tachycardia ICD Code: Z86.79 Status: Acute (2) Diabetes mellitus ICD Code: E11.9 Status: Acute (3) Anemia ICD Code: D64.9 Status: Acute (4) Hyperparathyroidism ICD Code: E21.3 Status: Acute (5) Peripheral neuropathy ICD Code: G62.9 Status: Acute (6) Peripheral vascular disease ICD Code: I73.9 Status: Acute (7) Leukocytosis ICD Code: D72.829 Status: Acute (8) Chronic kidney disease, stage III (moderate) ICD Code: N18.3 Status: Acute (9) Dyslipidemia ICD Code: E78.5 Status: Acute (10) Hypertension ICD Code: I10 Status: Acute (11) Chronic systolic heart failure ICD Code: I50.22 Status: Acute (12) Coronary artery disease ICD Code: I25.10 Status: Acute (13) Acute respiratory failure with hypoxia ICD Code: J96.01 Status: Acute (14) SIRS (systemic inflammatory response syndrome) ICD Code: R65.10 Status: Acute Assessment and Plan Chronic systolic heart failure EF 25-30% with mild LVH and diffuse hypokinesis Peripheral vascular disease - history of right femoropopliteal with in situ saphenous vein grafting with thrombectomy of popliteal artery/anterior posterior tibial arteries [address] Mayes Coronary artery disease recent PCI/drug-eluting stent to RCA/PDA 04/[address] Kan secondary to inferior STEMI Dual-chamber defibrillator placed 05/[address] Yousif. DDD/70 Hypertension Dyslipidemia Elevated troponin Stent thrombosis RCA Severe CAD three-vessel LAD, circumflex, stented RCA- plan for CABG 06/17/16 Dr Langley Cardiac consultation/Dr. Kan cardiac management S/P left heart catheterization 06/09/16-left main 4050 percent occlusion, left circumflex 70% occlusion,thrombosed RCA Limited echocardiogram to eval LV function pending Continue amiodarone 200 mg by mouth daily for history of V. tach Continue Brilinta 90 mg twice a day and aspirin 81 mg daily for heart stent Resume Bumex 1 mg IV twice a day Kilo 30 mg by mouth daily for dyslipidemia. Resume Coreg at 6.25 mg twice a day and Norvasc 2.5 mg by mouth daily for hypertension. On double dose at home. S/P catheterization 06/09-severe three-vessel coronary artery disease Cardiothoracic surgery Dr. Langley tentatively scheduled for CABG on Thursday Heparin and Aggrastat infusions, Brilinta discontinued on 06/11 [place] for accurate I's and O's in a critically ill patient if required Acute hypoxemic respiratory failure On nasal cannula 3 L/m O2 sat 93-94%, however on 06/13/16 noted more sob and requiring increasing O2 on venti mask now. Wean O2 as tolerated Bronchodilator therapy every 6 hours and as needed Initiate incentive spirometry-encourage use Requiring more O2 on 06/13. Will do ABG, CXR, BNP,check labs cbc, bmp, mag Chest x-ray reveals bilateral lower lobe infiltrates. Repeat CXR 06/13/16 Right perihilar infiltrate is a new finding from the prior exam. Trace amount of fluid tracking along the minor fissure. BNP in 500s Continue IV antibiotics for aspiration PNA. Wean off O2. Aspiration precautions discussed with the patient at length, he expressed understanding. Gastroesophageal reflux disease ADA diet. Protonix for GI prophylaxis. On Protonix home. Colace/as needed Senokot for bowel regimen Diabetes mellitus type 2 Hyperglycemia of critical illness On lispro 15 units daily at home. Sliding-scale insulin with Accu-Cheks every 4 hours to maintain euglycemia. Will initiate insulin drip if unable to maintain tight euglycemic control Peripheral neuropathy secondary to diabetes Anxiety Neurontin 300 mg by mouth 3 times a day for neuropathy. Acetaminophen for fever [place]/morphine for pain management, [place] to 10/325mg, Dilaudid added every 4 hours when necessary for pain Change Xanax to ativan 0.5 Q6 hrs prn Chronic kidney disease stage III. Creatinine 1.3 returned to baseline Monitor urine output closely. Accurate I's and O's Leukocytosis Normocytic anemia Monitor CBC/CMP daily. Follow trends Possible community-acquired pneumonia History of MRSA treated with Zyvox Day 5 cefepime/Zithromax. Zyvox 2/2 history of MRSA pneumonia in sputum Blood cultures 2, sputum and UA NGTD Influenza negative FEN: Replace electrolytes as clinically indicated Osteoarthritis PT evaluate and treat Prophylaxis - GI - Protonix - DVT - SCD/Heparin infusion Discussed with the nurse, patient Problem Qualifiers (1) Diabetes mellitus: Qualified Code: E11.8 - Type 2 diabetes mellitus with complication, with long- term current use of insulin (2) Anemia: Qualified Code: D64.9 - Anemia, unspecified type (3) Peripheral neuropathy: Qualified Code: G62.9 - Peripheral polyneuropathy (4) Leukocytosis: Qualified Code: D72.829 - Leukocytosis, unspecified type (5) Coronary artery disease: Qualified Code: I25.10 - Coronary artery disease involving [place] coronary artery of [place] heart, angina presence unspecified Susan Dickey MD Jun 15, 2016 07:28
[2016-06-15] MEDS: SODIUM CHLORIDE 0.9% FLUSH 5 ML FLUSH IV FLUSH SCH ×2 (08:02→20:15)
[2016-06-15] MEDS: SODIUM CHLORIDE 0.9% FLUSH 5 ML FLUSH IVF SCH ×2 (08:02→20:15)
[2016-06-15] MEDS: BUMETANIDE INJ 1 MG/4 ML VIAL IV PUSH SCH ×2 (08:02→17:43)
[2016-06-15] MEDS: CARVEDILOL 6.25 MG TAB PO SCH ×2 (08:03→20:14)
[2016-06-15] MEDS: DOCUSATE SODIUM 100 MG CAP PO SCH ×2 (08:03→20:14)
[2016-06-15] MEDS: ATORVASTATIN 20 MG TAB PO SCH (08:03)
[2016-06-15] MEDS: INSULIN DETEMIR 100 UNITS/ML VIAL SQ SCH ×2 (08:03→20:14)
[2016-06-15] MEDS: LINEZOLID 600 MG TAB PO SCH ×2 (08:03→20:14)
[2016-06-15] MEDS: GABAPENTIN 300 MG CAP PO SCH ×3 (08:03→17:43)
[2016-06-15] MEDS: AMIODARONE 200 MG TAB PO SCH (08:04)
[2016-06-15] MEDS: PANTOPRAZOLE SOD 40 MG DELAYED RELEASE TAB PO SCH (08:04)
[2016-06-15] MEDS: NICOTINE 14 MG/24 HR PATCH TD SCH (08:04)
[2016-06-15] MEDS: amLODIPine BESYLATE 5 MG TAB PO SCH (08:04)
[2016-06-15] MEDS: ARTIFICIAL TEARS OPTH SOLN 15 ML BTL EACH EYE SCH ×3 (08:04→17:44)
[2016-06-15] MEDS: ASPIRIN 81 MG CHEW TAB PO SCH (08:04)
[2016-06-15] MEDS: LORazepam 0.5 MG TAB PO PRN (09:51)
[2016-06-15] MEDS: ACETAMINOPHEN/HYDROcodone 325 MG/5 MG TAB PO PRN ×2 (09:51→16:49)
[2016-06-15] MEDS: REMOVE OLD PATCH TD SCH (20:16)
[2016-06-15 23:01] LABS: APTT (PATIENT) 41.9 SEC (24.3-30.1)
[2016-06-16] VITALS (14 sets, daily range): BP systolic 103–135; BP diastolic 58–66; PULSE 69; RESP 13–20; TEMP 98.1–99.1; O2SAT 89–95
[2016-06-16] MEDS: CHLORHEXIDINE GLUCONATE 2 % 1 PACK (2 CLOTHS) TOP SCH (03:56)
[2016-06-16] MEDS: CEFEPIME INJ 2,000 MG in SODIUM CHLORIDE 0.9% INJ 100 ML IV SCH ×2 (03:56→15:00)
[2016-06-16] MEDS: INSULIN ASPART SUPPLEMENTAL SCALE SQ SCH ×5 (03:56→20:00)
[2016-06-16] MEDS: AZITHROMYCIN INJ 500 MG in SODIUM CHLOR 0.9% 250 ML INJ 250 ML IV SCH (03:56)
[2016-06-16] MEDS: MORPHINE SULFATE 4 MG/ML INJ IV PRN ×6 (03:57→23:03)
[2016-06-16] MEDS: TIROFIBAN INFUSION INJ 250 ML IV SCH (04:02)
[2016-06-16 05:02] LABS: AUTOMATED NEUTROPHIL # 3.4 TH/MM3 (1.8-7.7); BASOPHIL # 0.1 TH/MM3 (0-0.2); BASOPHIL % 0.8 % (0.0-2.0); EOSINOPHIL # 0.1 TH/MM3 (0-0.4); EOSINOPHIL % 2.2 % (0.0-4.0); LYMPH % 38.1 % (9.0-44.0); LYMPHOCYTE # 2.5 TH/MM3 (1.0-4.8); MEAN CELL VOLUME 90.8 FL (80.0-100.0); MEAN CORPUSCULAR HEMOGLOBIN 31.4 PG (27.0-34.0); MEAN CORPUSCULAR HGB CONC 34.6 % (32.0-36.0); MONO % 7.3 % (0.0-8.0); NEUT % 51.6 % (16.0-70.0); PLATELET COUNT 191 TH/MM3 (150-450); RED BLOOD COUNT 2.22 MIL/MM3 (4.50-5.90); RED CELL DISTRIBUTION WIDTH 14.6 % (11.6-17.2); WHITE BLOOD COUNT 6.6 TH/MM3 (4.0-11.0)
[2016-06-16 05:09] LABS: APTT (PATIENT) 41.2 SEC (24.3-30.1)
[2016-06-16 05:22] LABS: HEMO FLAGS DIFF FINAL
[2016-06-16 05:25] LABS: HEMATOCRIT 20.2 % (39.0-51.0)
[2016-06-16 05:27] LABS: BICARBONATE 27.8 MEQ/L (21.0-32.0); POTASSIUM 4.8 MEQ/L (3.5-5.1)
[2016-06-16] MEDS ORDERED: SODIUM CHLOR 0.9% 250 ML INJ 250 ML IV ONE (06:15)
[2016-06-16] MEDS: ACETAMINOPHEN/HYDROcodone 325 MG/5 MG TAB PO PRN ×2 (08:20→13:30)
[2016-06-16] MEDS: GABAPENTIN 300 MG CAP PO SCH ×3 (08:38→20:52)
[2016-06-16] MEDS: LINEZOLID 600 MG TAB PO SCH ×2 (08:38→20:54)
[2016-06-16] MEDS: ATORVASTATIN 20 MG TAB PO SCH (08:38)
[2016-06-16] MEDS: ASPIRIN 81 MG CHEW TAB PO SCH (08:38)
[2016-06-16] MEDS: DOCUSATE SODIUM 100 MG CAP PO SCH ×2 (08:40→21:00)
[2016-06-16] MEDS: amLODIPine BESYLATE 5 MG TAB PO SCH (08:40)
[2016-06-16] MEDS: CARVEDILOL 6.25 MG TAB PO SCH ×2 (08:40→20:53)
[2016-06-16] MEDS: AMIODARONE 200 MG TAB PO SCH (08:40)
[2016-06-16] MEDS: PANTOPRAZOLE SOD 40 MG DELAYED RELEASE TAB PO SCH (08:40)
[2016-06-16] MEDS: BUMETANIDE INJ 1 MG/4 ML VIAL IV PUSH SCH ×2 (08:41→20:52)
[2016-06-16] MEDS: NICOTINE 14 MG/24 HR PATCH TD SCH (08:41)
[2016-06-16] MEDS: SODIUM CHLORIDE 0.9% FLUSH 5 ML FLUSH IV FLUSH SCH ×2 (09:00→20:53)
[2016-06-16] MEDS: INSULIN DETEMIR 100 UNITS/ML VIAL SQ SCH ×2 (09:00→20:54)
[2016-06-16] MEDS: ARTIFICIAL TEARS OPTH SOLN 15 ML BTL EACH EYE SCH ×3 (09:00→18:00)
[2016-06-16] MEDS: SODIUM CHLORIDE 0.9% FLUSH 5 ML FLUSH IVF SCH ×2 (09:00→20:53)
--- NOTE | 2016-06-16 10:07 | PD.CONS ---
HPI History of Present Illness This is a 65 year old male with multiple medical problems including coronary artery disease, hypertension, diabetes, CHF, chronic kidney disease, peripheral vascular disease. He was hospitalized last month for CAD/LA and underwent a cardiac catheterization (04/30/16) for inferior STEMI with placement of a drug- eluting stent to the distal right coronary artery, and drug-eluting stent to the posterior descending artery. Afterwards, he was found to have an AV block and a few episodes of Vtach and therefore he had an AICD placed. He was discharged on Brilinta. Since this time, he has had intermittent shortness of breath and had worsening of symptoms on 06/07/16 and therefore came to the ER and was found to have Non-STEMI and CHF. He had a repeat cardiac catheterization on 06/09/16 which revealed 100% occluded stent RCA, disease to left main with 40-50% lesion, stent in mid segment LAD with 70% ISR with the rest of vessel diffusely diseased with CATALINA III flow, left circumflex artery 70 % lesion at its ostium with CATALINA III flow, OM1 and OM2 small, S/P successful POBA to distal coronary artery disease- severe three vessel CAD with a diseased LAD, diseased circumflex, and stented right coronary artery. His Brilinta was discontinued in preparation for CABG and he was started on Aggrastat and Heparin. The patient reports that the night before last, he had a scant amount of bright red blood on the toilet tissue when he wiped himself after moving his bowels. He does report that he has a hx of hemorrhoids and thought this was related to that. He was not having any other GI symptoms at the time. Overnight , he had a black tarry stool and his hgb dropped from 8.1/23.9 to 7.0/20.2. He is not having any other GI symptoms such as nausea, vomiting, heartburn, reflux , abdominal pain. He denies any hx of PUD, although he does report that whenever he is in the hospital, he always has black stools. He denies ever having an EGD/Colonoscopy or being evaluated by GI. The plan was for CABG tomorrow, but GI has been consulted for evaluation of melena prior to scheduling this. Called and spoke to Dr. Meade regarding melena/GI evaluation and he is okay with proceeding with EGD. The patient had a cappuccino around 7am, although he has not had any other po intake. (Lori Doe) PFSH Past Medical History Coronary artery disease Hypertension Diabetes Congestive heart failure Chronic kidney disease Peripheral vascular disease Hyperparathyroidism Anemia History of V. tach Past Surgical History AICD placement Cardiac catheterization Bilateral inguinal hernia repair Right femoropopliteal bypass procedure Appendectomy (Lori Doe) Coded Allergies: No Known Allergies (Unverified , 06/08/16) Medications Allergies Coded Allergies Type Severity Reaction Last Updated Verified No Known Allergies 06/08/16 No Active Scripts Medications Dose Route/Sig Days Date Category Active Prescriptions or Reported Medications Unobtainable Rx Family History Noncontributory Social History Smokes 3/ PPD No ETOH (Lori Doe) Review of Systems Constitutional: COMPLAINS OF: Fatigue, DENIES: Weight loss, Change in appetite Respiratory: COMPLAINS OF: Shortness of breath, DENIES: Cough Cardiovascular: DENIES: Chest pain Gastrointestinal: COMPLAINS OF: Black stools, Bloody stools (BRBPR), DENIES: Abdominal pain, Constipation, Diarrhea, Nausea, Vomiting, Anorexia, Heartburn, Hematemesis Musculoskeletal: DENIES: Joint pain Integumentary: DENIES: Abnormal pigmentation Neurologic: DENIES: Headache Psychiatric: DENIES: Confusion (Lori Doe) GI Exam Vitals I&O Vital Signs Date Time Temp Pulse Resp B/P Pulse Ox O2 Delivery O2 Flow Rate FiO2 06/16/16 07:15 91 21 06/16/16 06:45 99.1 69 20 115/59 95 06/16/16 06:42 20 06/16/16 06:30 98.1 69 20 125/61 95 06/16/16 06:00 69 06/16/16 04:00 94 Room Air 06/16/16 04:00 69 06/16/16 04:00 98.6 69 16 119/58 95 06/16/16 02:00 69 06/16/16 00:20 20 06/16/16 00:00 98.6 69 14 124/60 90 06/16/16 00:00 94 Room Air 06/16/16 00:00 69 06/15/16 22:00 69 06/15/16 20:36 94 Nasal Cannula 5.00 06/15/16 20:00 69 06/15/16 20:00 98.5 69 20 121/59 94 06/15/16 20:00 94 Room Air 06/15/16 18:00 69 06/15/16 16:00 69 06/15/16 16:00 98.4 69 17 116/57 93 06/15/16 16:00 93 Nasal Cannula 5.00 06/15/16 14:00 69 06/15/16 12:00 98.4 69 21 106/53 94 06/15/16 12:00 69 06/15/16 12:00 94 Nasal Cannula 5.00 06/15/16 10:00 69 I/O 06/15/16 06/15/16 06/15/16 06/16/16 06/16/16 06/16/16 07:00 15:00 23:00 07:00 15:00 23:00 Intake Total 560 ml 1409 ml 59 ml 198 ml Output Total 650 ml 1850 ml 550 ml 600 ml Balance -90 ml -441 ml -491 ml -402 ml Intake Oral 850 ml IV Total 560 ml 559 ml 59 ml 198 ml Output Urine Total 650 ml 1850 ml 550 ml 600 ml Laboratory Test 06/15/16 06/15/16 06/16/16 06/16/16 15:44 22:20 00:26 04:19 Activated Partial 43.0 SEC 41.9 SEC 41.2 SEC Thromboplast Time Blood Type O POSITIVE Crossmatch Leukocyte-Reduced Red Blood Cells Blood Bank Comment White Blood Count 6.6 TH/MM3 Red Blood Count 2.22 MIL/MM3 Hemoglobin 7.0 GM/DL Hematocrit 20.2 % Mean Corpuscular Volume 90.8 FL Mean Corpuscular Hemoglobin 31.4 PG Mean Corpuscular Hemoglobin 34.6 % Concent Red Cell Distribution Width 14.6 % Platelet Count 191 TH/MM3 Mean Platelet Volume 8.1 FL Neutrophils (%) (Auto) 51.6 % Lymphocytes (%) (Auto) 38.1 % Monocytes (%) (Auto) 7.3 % Eosinophils (%) (Auto) 2.2 % Basophils (%) (Auto) 0.8 % Neutrophils # (Auto) 3.4 TH/MM3 Lymphocytes # (Auto) 2.5 TH/MM3 Monocytes # (Auto) 0.5 TH/MM3 Eosinophils # (Auto) 0.1 TH/MM3 Basophils # (Auto) 0.1 TH/MM3 CBC Comment DIFF FINAL Differential Comment Sodium Level 139 MEQ/L Potassium Level 4.8 MEQ/L Chloride Level 103 MEQ/L Carbon Dioxide Level 27.8 MEQ/L Anion Gap 8 MEQ/L Blood Urea Nitrogen 43 MG/DL Creatinine 1.52 MG/DL Estimat Glomerular Filtration 46 ML/MIN Rate Random Glucose 175 MG/DL Calcium Level 8.6 MG/DL Date/Time Procedure Status Source Growth 06/15/16 23:52 Stool Occult Blood (IRLANDA) - Final Complete Stool Stool HEMOCCULT POSITIVE Physical Examination HEENT: Normocephalic; atraumatic; no jaundice. CHEST: CTA CARDIAC: RRR ABDOMEN: Soft, nondistended, nontender; no hepatosplenomegaly; bowel sounds are present in all four quadrants. EXTREMITIES: No clubbing, cyanosis, or edema. SKIN: Skin w/d, generalized pallor. SALESPERSON FURNITURE: No focal deficits; lethargic and oriented times three. (Lori Doe) Assessment and Plan Plan ASSESSMENT: - GIB, Melena, BRBPR. Brilinta on hold since 06/11. Has been on Heparin gtt, Aggrastat. Had one episode of BRBPR (scant amount) 2 days ago and had melena x 1 overnight. HH dropped from 8.1/23.9 to 7.0/ 20.2. CVT following, plan was for CABG tomorrow, but now GI consulted for further evaluation of melena. Spoke to rebeca Reese to proceed with EGD. Last had cappuccino around 7am. Was started on protonix, will start drip. - Anemia secondary to acute blood loss. Drop in Hgb from 8.1/23.9 to 7.0/20.2. - Severe CAD with multivessel disease. Cardiac catheterization (04/30/16) for inferior STEMI with placement of a drug-eluting stent to the distal right coronary artery, and drug-eluting stent to the posterior descending artery. Afterwards, he was found to have an AV block and a few episodes of Vtach and therefore he had an AICD placed. He was discharged on Brilinta. Since this time, he has had intermittent shortness of breath and had worsening of symptoms on 06/07/16 and therefore came to the ER and was found to have Non-STEMI and CHF. Rpt cardiac catheterization on 06/09/16 which revealed 100% occluded stent RCA, disease to left main with 40-50% lesion, stent in mid segment LAD with 70% ISR with the rest of vessel diffusely diseased with CATALINA III flow, left circumflex artery 70% lesion at its ostium with CATALINA III flow, OM1 and OM2 small, S/P successful POBA to distal coronary artery disease- severe three vessel CAD with a diseased LAD, diseased circumflex, and stented right coronary artery. His Brilinta was discontinued in preparation for CABG and he was started on Aggrastat and Heparin. - HTN, DM, CHF, CKD, PVD per primary. PLAN: - Plan for egd today. D/W patient procedure, risks, benefits- including that he is at a higher risk because of his heart disease and blood thinners. Verbalizes understanding and would like to proceed. - Obtain consents - NPO for now- Last had cappuccino at 7am - Aggrastat and Heparin have been on hold since 10am (per CVT) - Change protonix to protonix gtt - Monitor HH - Transfuse as necessary - Supportive care - Further recommendations to follow based on results of above - Pt seen and examined by Dr. Lantigua and myself and this note is written on her behalf. (Lori Doe) Physician Comments seen, examined agree with above (Nancy Lantigua MD) Lori Doe Jun 16, 2016 10:07 Nancy Lantigua MD Jun 16, 2016 20:33
[2016-06-16] MEDS: LORazepam 0.5 MG TAB PO PRN (10:14)
--- NOTE | 2016-06-16 10:48 | PD.CARD.PN ---
Subjective Subjective Remarks overnight events noted GI bleeding Chest pain free Hemodynamically stable Objective Medications Current Medications Medications (Trade) Dose Ordered Sig/Lily Route Start Time Stop Time Status Last Admin (Zofran Inj) 4 mg Q6H PRN IV 06/07/16 04:30 Miscellaneous Information 1 Q361D XX 06/07/16 04:30 (Chlorhexidine 2% Cloth) Taper DAILY@04 TOP 06/08/16 04:00 06/04/17 03:59 06/14/16 03:51 Chlorhexidine Gluconate 3 pack 3 pack UNSCH PRN TOP 06/07/16 04:30 Cefepime HCl 2000 mg/Sodium Chloride 100 ml @ 200 mls/hr Q12H IV 06/07/16 15:00 06/16/16 03:56 (Zithromax Inj/ NS 250 ml Inj) 250 ml @ 250 mls/hr Q24H IV 06/08/16 03:00 06/16/16 03:56 (D50w (Vial) Inj) 25 ml UNSCH PRN IV PUSH 06/07/16 04:30 (Glucagon Inj) 1 mg UNSCH PRN OTHER 06/07/16 04:30 (NovoLOG SUPPLEMENTAL SCALE) 1 Q4HR SQ 06/07/16 04:30 06/16/16 03:56 (Brilinta) 90 mg BID PO 06/07/16 09:00 Hold 06/11/16 08:13 (Coreg) 6.25 mg Q12HR PO 06/07/16 09:00 06/16/16 08:40 (Norvasc) 2.5 mg DAILY PO 06/07/16 09:00 06/16/16 08:40 (Cordarone) 200 mg DAILY PO 06/07/16 09:00 06/16/16 08:40 (Lipitor) 20 mg DAILY PO 06/07/16 09:00 06/16/16 08:38 (Neurontin) 300 mg TID PO 06/07/16 09:00 06/16/16 08:38 (Levemir Inj) 8 units Q12HR SQ 06/07/16 09:00 06/15/16 20:14 (Tylenol) 650 mg Q6H PRN PO 06/07/16 06:45 (Tears Naturale Opth Soln) 1 drop TID EACH EYE 06/07/16 09:00 06/09/16 17:31 (Colace) 100 mg BID PO 06/07/16 09:00 06/15/16 20:14 (Senokot) 17.2 mg Q12H PRN PO 06/07/16 06:45 (Zyvox) 600 mg Q12HR PO 06/07/16 21:00 06/16/16 08:38 ([place] 5-325 Mg) 2 tab Q4H PRN PO 06/09/16 10:45 06/15/16 16:49 (Aspirin Chew) 81 mg DAILY PO 06/10/16 09:00 06/16/16 08:38 (NS Flush) 2 ml UNSCH PRN IVF 06/09/16 15:30 06/09/16 23:38 (NS Flush) 2 ml BID IVF 06/09/16 21:00 06/15/16 08:02 (Habitrol 14 Mg Patch.24 Hr) 1 patch DAILY TD 06/10/16 09:00 06/16/16 08:41 Miscellaneous Information 1 HS TD 06/10/16 21:00 06/15/16 20:16 (Bumex Inj) 1 mg BID@,18 IV PUSH 06/10/16 09:00 06/16/16 08:41 (NS Flush) 2 ml BID IV FLUSH 06/10/16 21:00 06/15/16 20:15 (NS Flush) 2 ml UNSCH PRN IV FLUSH 06/10/16 15:30 06/15/16 04:43 (Morphine Inj) 2 mg Q2H PRN IV 06/11/16 18:30 06/16/16 10:14 Hydromorphone HCl 0.5 mg 0.5 mg Q4H PRN IV PUSH 06/12/16 15:00 06/15/16 23:47 Potassium Chloride 100 ml @ 50 mls/hr Q2H PRN IV 06/13/16 07:45 Potassium Chloride 100 ml @ 50 mls/hr Q2H PRN IV 06/13/16 07:45 Potassium Chloride 100 ml @ 25 mls/hr UNSCH PRN IV 06/13/16 07:45 Potassium Chloride 100 ml @ 50 mls/hr Q2H PRN IV 06/13/16 07:45 (Magnesium Sulfate Inj/NS Inj) 100 ml @ 50 mls/hr UNSCH PRN IV 06/13/16 07:45 Magnesium Oxide 800 mg 800 mg UNSCH PRN PO 06/13/16 07:45 (Magnesium Sulfate Inj/NS Inj) 100 ml @ 50 mls/hr UNSCH PRN IV 06/13/16 07:45 Potassium Phosphate 2000 mg 2,000 mg Q4H PRN PO 06/13/16 07:45 (Sodium Phosphate Inj/NS 250 ml Inj) 250 ml @ 42 mls/hr UNSCH PRN IV 06/13/16 07:45 Potassium Phosphate 2000 mg 2,000 mg UNSCH PRN PO/TUBE 06/13/16 07:45 (Potassium Phosphate Inj/NS 250 ml Inj) 260 ml @ 42 mls/hr UNSCH PRN IV 06/13/16 07:45 Lorazepam 0.5 mg 0.5 mg Q6H PRN PO 06/15/16 09:00 06/16/16 10:14 Sodium Chloride 250 ml @ 15 mls/hr ONCE ONCE IV 06/16/16 06:15 06/16/16 22:54 06/16/16 06:15 (Protonix Inj/NS Inj) 100 ml @ 10 mls/hr CONTINUOUS IV 06/16/16 10:00 Vital Signs / I&O Vital Signs Date Time Temp Pulse Resp B/P Pulse Ox O2 Delivery O2 Flow Rate FiO2 06/16/16 07:15 91 21 06/16/16 06:45 99.1 69 20 115/59 95 06/16/16 06:42 20 06/16/16 06:30 98.1 69 20 125/61 95 06/16/16 06:00 69 06/16/16 04:00 94 Room Air 06/16/16 04:00 69 06/16/16 04:00 98.6 69 16 119/58 95 06/16/16 02:00 69 06/16/16 00:20 20 06/16/16 00:00 98.6 69 14 124/60 90 06/16/16 00:00 94 Room Air 06/16/16 00:00 69 06/15/16 22:00 69 06/15/16 20:36 94 Nasal Cannula 5.00 06/15/16 20:00 69 06/15/16 20:00 98.5 69 20 121/59 94 06/15/16 20:00 94 Room Air 06/15/16 18:00 69 06/15/16 16:00 69 06/15/16 16:00 98.4 69 17 116/57 93 06/15/16 16:00 93 Nasal Cannula 5.00 06/15/16 14:00 69 06/15/16 12:00 98.4 69 21 106/53 94 06/15/16 12:00 69 06/15/16 12:00 94 Nasal Cannula 5.00 I/O 06/15/16 06/15/16 06/15/16 06/16/16 06/16/16 06/16/16 07:00 15:00 23:00 07:00 15:00 23:00 Intake Total 560 ml 1409 ml 59 ml 198 ml Output Total 650 ml 1850 ml 550 ml 600 ml Balance -90 ml -441 ml -491 ml -402 ml Intake Oral 850 ml IV Total 560 ml 559 ml 59 ml 198 ml Output Urine Total 650 ml 1850 ml 550 ml 600 ml Physical Exam GENERAL: Well-nourished, well-developed patient. SKIN: Warm and dry. HEAD: Normocephalic. EYES: No scleral icterus. No injection or drainage. NECK: Supple, trachea midline. No JVD or lymphadenopathy. CARDIOVASCULAR: Regular rate and rhythm without murmurs, gallops, or rubs. RESPIRATORY: Breath sounds equal bilaterally. No accessory muscle use. GASTROINTESTINAL: Abdomen soft, non-tender, nondistended. EXTREMITIES: No cyanosis, or edema. NEUROLOGICAL: Awake, alert, and oriented x 3. Non-focal. Laboratory Laboratory Tests Test 06/15/16 06/15/16 06/16/16 06/16/16 15:44 22:20 00:26 04:19 Activated Partial 43.0 SEC 41.9 SEC 41.2 SEC Thromboplast Time Blood Type O POSITIVE Crossmatch Leukocyte-Reduced Red Blood Cells Blood Bank Comment White Blood Count 6.6 TH/MM3 Red Blood Count 2.22 MIL/MM3 Hemoglobin 7.0 GM/DL Hematocrit 20.2 % Mean Corpuscular Volume 90.8 FL Mean Corpuscular Hemoglobin 31.4 PG Mean Corpuscular Hemoglobin 34.6 % Concent Red Cell Distribution Width 14.6 % Platelet Count 191 TH/MM3 Mean Platelet Volume 8.1 FL Neutrophils (%) (Auto) 51.6 % Lymphocytes (%) (Auto) 38.1 % Monocytes (%) (Auto) 7.3 % Eosinophils (%) (Auto) 2.2 % Basophils (%) (Auto) 0.8 % Neutrophils # (Auto) 3.4 TH/MM3 Lymphocytes # (Auto) 2.5 TH/MM3 Monocytes # (Auto) 0.5 TH/MM3 Eosinophils # (Auto) 0.1 TH/MM3 Basophils # (Auto) 0.1 TH/MM3 CBC Comment DIFF FINAL Differential Comment Sodium Level 139 MEQ/L Potassium Level 4.8 MEQ/L Chloride Level 103 MEQ/L Carbon Dioxide Level 27.8 MEQ/L Anion Gap 8 MEQ/L Blood Urea Nitrogen 43 MG/DL Creatinine 1.52 MG/DL Estimat Glomerular Filtration 46 ML/MIN Rate Random Glucose 175 MG/DL Calcium Level 8.6 MG/DL Assessment and Plan Problem List: (1) NSTEMI (non-ST elevated myocardial infarction) Assessment and Plan: Stop Heparin and Aggrastat GI consult CABG schedule for tomorrow (2) Acute respiratory failure with hypoxia (3) SIRS (systemic inflammatory response syndrome) (4) History of ventricular tachycardia (5) Chronic kidney disease, stage III (moderate) (6) Chronic systolic heart failure (7) Dyslipidemia (8) Hypertension (9) Peripheral vascular disease (10) Peripheral neuropathy (11) Coronary artery disease (12) Pressure ulcer of left heel, unstageable (13) Pressure ulcer of right heel, unstageable Problem Qualifiers (1) Peripheral neuropathy: Qualified Code: G62.9 - Peripheral polyneuropathy (2) Coronary artery disease: Qualified Code: I25.10 - Coronary artery disease involving [place] coronary artery of [place] heart, angina presence unspecified Asher Meade MD Jun 16, 2016 10:48
[2016-06-16] MEDS: HYDROmorphone HCL PF 1 MG/ML VIAL IV PUSH PRN ×3 (12:11→20:56)
--- NOTE | 2016-06-16 12:14 | HHI.PR ---
Subjective Remarks awake and alert no abdominal pain episodes of black tarry stools overnight states + history of GIB in the past when on blood thinners Objective Vitals Vital Signs Date Time Temp Pulse Resp B/P Pulse Ox O2 Delivery O2 Flow Rate FiO2 06/16/16 10:00 69 06/16/16 08:00 69 06/16/16 08:00 93 Nasal Cannula 3.00 06/16/16 08:00 98.2 69 16 128/60 93 06/16/16 07:15 91 21 06/16/16 06:45 99.1 69 20 115/59 95 06/16/16 06:42 20 06/16/16 06:30 98.1 69 20 125/61 95 06/16/16 06:00 69 06/16/16 04:00 94 Room Air 06/16/16 04:00 69 06/16/16 04:00 98.6 69 16 119/58 95 06/16/16 02:00 69 06/16/16 00:20 20 06/16/16 00:00 98.6 69 14 124/60 90 06/16/16 00:00 94 Room Air 06/16/16 00:00 69 06/15/16 22:00 69 06/15/16 20:36 94 Nasal Cannula 5.00 06/15/16 20:00 69 06/15/16 20:00 98.5 69 20 121/59 94 06/15/16 20:00 94 Room Air 06/15/16 18:00 69 06/15/16 16:00 69 06/15/16 16:00 98.4 69 17 116/57 93 06/15/16 16:00 93 Nasal Cannula 5.00 06/15/16 14:00 69 I/O 06/15/16 06/15/16 06/15/16 06/16/16 06/16/16 06/16/16 07:00 15:00 23:00 07:00 15:00 23:00 Intake Total 560 ml 1409 ml 59 ml 198 ml Output Total 650 ml 1850 ml 550 ml 600 ml Balance -90 ml -441 ml -491 ml -402 ml Intake Oral 850 ml IV Total 560 ml 559 ml 59 ml 198 ml Output Urine Total 650 ml 1850 ml 550 ml 600 ml Result Diagram: 06/16/16 0419 06/16/16 0419 Imaging Last Impressions Chest X-Ray 06/13/16 0000 Signed Impressions: Service Date/Time: Monday, June 13, 2016 07:43 - CONCLUSION: Right perihilar infiltrate is a new finding from the prior exam. Trace amount of fluid tracking along the minor fissure. Edgar Jones Jr., MD Lower Extremity Ultrasound 06/10/16 0000 Signed Impressions: Service Date/Time: Friday, June 10, 2016 16:44 - CONCLUSION: Venous mapping study as described. Gregorio Walsh MD Carotid Artery Ultrasound 06/10/16 0000 Signed Impressions: Service Date/Time: Friday, June 10, 2016 16:11 - CONCLUSION: Mild to moderate plaquing bilaterally with less than 50%% diameter stenosis by velocity criteria. Gregorio Walsh MD CT Angiography 06/07/16 0000 Signed Impressions: Service Date/Time: Tuesday, June 07, 2016 15:18 - CONCLUSION: 1. No pulmonary embolus. 2. Very small, bilateral pleural effusions and patchy bilateral airspace opacities. 3. Mildly enlarged mediastinal lymph nodes, nonspecific. 4. Several nodules up to 2 cm in size of the left adrenal gland, incompletely characterized but statistically most likely adenomas. There is a cyst of the left kidney. 5. Coronary artery calcification. Florencio Hamilton MD Objective Remarks awake and alert NAD anicteric lungs clear regular rhythm- paced on telemetry abdomen soft, nontender, good bowel sounds extremities + trace pretibial edema neurologic exam- unremarkable A/P Problem List: (1) History of ventricular tachycardia ICD Code: Z86.79 Status: Acute (2) Diabetes mellitus ICD Code: E11.9 Status: Acute (3) Anemia ICD Code: D64.9 Status: Acute (4) Hyperparathyroidism ICD Code: E21.3 Status: Acute (5) Peripheral neuropathy ICD Code: G62.9 Status: Acute (6) Peripheral vascular disease ICD Code: I73.9 Status: Acute (7) Leukocytosis ICD Code: D72.829 Status: Acute (8) Chronic kidney disease, stage III (moderate) ICD Code: N18.3 Status: Acute (9) Dyslipidemia ICD Code: E78.5 Status: Acute (10) Hypertension ICD Code: I10 Status: Acute (11) Chronic systolic heart failure ICD Code: I50.22 Status: Acute (12) Coronary artery disease ICD Code: I25.10 Status: Acute (13) Acute respiratory failure with hypoxia ICD Code: J96.01 Status: Acute (14) SIRS (systemic inflammatory response syndrome) ICD Code: R65.10 Status: Acute Assessment and Plan Chronic systolic heart failure EF 25-30% with mild LVH and diffuse hypokinesis Peripheral vascular disease - history of right femoropopliteal with in situ saphenous vein grafting with thrombectomy of popliteal artery/anterior posterior tibial arteries [address] Mayes Coronary artery disease recent PCI/drug-eluting stent to RCA/PDA 04/[address] Kan secondary to inferior STEMI Dual-chamber defibrillator placed 05/[address] Yousif. DDD/70 Hypertension Dyslipidemia Elevated troponin Stent thrombosis RCA Severe CAD three-vessel LAD, circumflex, stented RCA- Cardiology -Dr. Kan ff S/P left heart catheterization 06/09/16-left main 4050 percent occlusion, left circumflex 70% occlusion,thrombosed RCA Continue amiodarone 200 mg by mouth daily for history of V. tach Off Brilinta 90 mg twice a day- plan for CABG aspirin 81 mg daily for heart stent- Hold Brilinta Bumex 1 mg IV twice a day Kilo 30 mg by mouth daily for dyslipidemia. on Coreg twice a day and Norvasc 2.5 mg by mouth daily for hypertension. On double dose at home. Cardiothoracic surgery Dr. Langley tentatively scheduled for CABG on Thursday Heparin and Aggrastat infusions, Brilinta discontinued on 06/11 [place] for accurate I's and O's in a critically ill patient if required ACUTE GI BLEEDING - with melena transfuse total 4 units RBC todaY IV PPI for EGD today- GI consulted Acute hypoxemic respiratory failure On nasal cannula 3 L/m O2 sat 93-94%, however on 06/13/16 noted more sob and requiring increasing O2 on venti mask now. Wean O2 as tolerated Bronchodilator therapy every 6 hours and as needed Initiate incentive spirometry-encourage use Requiring more O2 on 06/13. Will do ABG, CXR, BNP,check labs cbc, bmp, mag Chest x-ray reveals bilateral lower lobe infiltrates. Repeat CXR 06/13/16 Right perihilar infiltrate is a new finding from the prior exam. Trace amount of fluid tracking along the minor fissure. BNP in 500s Continue IV antibiotics for aspiration PNA. Wean off O2. Aspiration precautions discussed with the patient at length, he expressed understanding. Gastroesophageal reflux disease ADA diet. Protonix for GI prophylaxis. On Protonix home. Colace/as needed Senokot for bowel regimen Diabetes mellitus type 2 Hyperglycemia of critical illness On lispro 15 units daily at home. Sliding-scale insulin with Accu-Cheks every 4 hours to maintain euglycemia. Will initiate insulin drip if unable to maintain tight euglycemic control Peripheral neuropathy secondary to diabetes Anxiety Neurontin 300 mg by mouth 3 times a day for neuropathy. Acetaminophen for fever [place]/morphine for pain management, [place] to 10/325mg, Dilaudid added every 4 hours when necessary for pain Change Xanax to ativan 0.5 Q6 hrs prn Chronic kidney disease stage III. Creatinine 1.3 returned to baseline Monitor urine output closely. Accurate I's and O's Possible community-acquired pneumonia History of MRSA treated with Zyvox Day 5 cefepime/Zithromax. Zyvox 2/2 history of MRSA pneumonia in sputum Blood cultures 2, sputum and UA NGTD Influenza negative FEN: Replace electrolytes as clinically indicated Osteoarthritis PT evaluate and treat Prophylaxis - GI - Protonix - DVT - SCD/Heparin infusion Discussed with the nurse, patient Problem Qualifiers (1) Diabetes mellitus: Problem Qualifiers (1) Diabetes mellitus: Qualified Code: E11.8 - Type 2 diabetes mellitus with complication, with long- term current use of insulin (2) Anemia: Qualified Code: D64.9 - Anemia, unspecified type (3) Peripheral neuropathy: Qualified Code: G62.9 - Peripheral polyneuropathy (4) Leukocytosis: Qualified Code: D72.829 - Leukocytosis, unspecified type (5) Coronary artery disease: Qualified Code: I25.10 - Coronary artery disease involving [place] coronary artery of [place] heart, angina presence unspecified Marie Alex MD Jun 16, 2016 12:14 Marie Alex MD Jun 16, 2016 12:14 Qualified Code: I25.10 - Coronary artery disease involving [place] coronary artery of [place] heart, angina presence unspecified Marie Alex MD Jun 16, 2016 12:14
--- NOTE | 2016-06-16 14:54 | PD.CAR.PN ---
CVT Progress Note Subjective/Hospital Course: 65-year-old male. Date of admission 06/07/2016. Past medical history includes recent heart catheterization 04/30/[address] Kan secondary to an inferior STEMI with PCI/MERE placed placed to the RCA and PDA. Left main was 30%. LAD was 40% proximal/80% diagonal. Left circumflex was 30%. EF was 20/5/30 percent. Im [place] devices placed as well. Patient had prolonged intubation During this hospitalization developed V. tach as well and a dual-chamber defibrillator was placed by Dr. Yousif /DDD 70 on 05/27. presented this admission , admitted this admission with NSTEMI, resp failure with hypoxia , underwent cardiac cath by Dr Kan, POBA to stent thrombosis of RCA 06/09 pt was on Brilinta at home PMH: CAD, with 2 prior stents by the hypertension, diabetes,'s chronic systolic heart failure EF 20-25% , , peripheral vascular disease with a right femoropopliteal in situ saphenous vein revision [address] Mayes with thrombolytic colectomy to the popliteal artery and anterior and posterior tibial arteries, 06/13 NO PAIN DURING THE NIGHT OOB with assistance on aggrastat and heparin 06/16 pt developed GI Bleed with Heme + stools HGB 7.0/ for 2 units PRBC GI consult, for EGD today on protonix gtt heparin and Aggrastat dc rescheduled for surgery on Thu Objective: GENERAL: SKIN: Warm and dry./ pale / both heels with dry necrotic ulcers HEAD: Normocephalic. EYES: No scleral icterus. No injection or drainage. NECK: Supple, trachea midline. No JVD or lymphadenopathy. CARDIOVASCULAR: Regular rate and rhythm without murmurs, gallops, or rubs. RESPIRATORY: Breath sounds equal bilaterally. No accessory muscle use. GASTROINTESTINAL: Abdomen soft, non-tender, nondistended. MUSCULOSKELETAL: No cyanosis, or edema. BACK: Nontender without obvious deformity. No CVA tenderness. Vital Signs Date Time Temp Pulse Resp B/P Pulse Ox O2 Delivery O2 Flow Rate FiO2 06/16/16 10:00 69 06/16/16 08:00 69 06/16/16 08:00 93 Nasal Cannula 3.00 06/16/16 08:00 98.2 69 16 128/60 93 06/16/16 07:15 91 21 06/16/16 06:45 99.1 69 20 115/59 95 06/16/16 06:42 20 06/16/16 06:30 98.1 69 20 125/61 95 06/16/16 06:00 69 06/16/16 04:00 94 Room Air 06/16/16 04:00 69 06/16/16 04:00 98.6 69 16 119/58 95 06/16/16 02:00 69 06/16/16 00:20 20 06/16/16 00:00 98.6 69 14 124/60 90 06/16/16 00:00 94 Room Air 06/16/16 00:00 69 06/15/16 22:00 69 06/15/16 20:36 94 Nasal Cannula 5.00 06/15/16 20:00 69 06/15/16 20:00 98.5 69 20 121/59 94 06/15/16 20:00 94 Room Air 06/15/16 18:00 69 06/15/16 16:00 69 06/15/16 16:00 98.4 69 17 116/57 93 06/15/16 16:00 93 Nasal Cannula 5.00 Labs: Laboratory Tests Test 06/16/16 06/16/16 04:19 11:50 White Blood Count 6.6 TH/MM3 (4.0-11.0) Red Blood Count 2.22 MIL/MM3 (4.50-5.90) Hemoglobin 7.0 GM/DL (13.0-17.0) Hematocrit 20.2 % (39.0-51.0) Mean Corpuscular Volume 90.8 FL (80.0-100.0) Mean Corpuscular Hemoglobin 31.4 PG (27.0-34.0) Mean Corpuscular Hemoglobin 34.6 % Concent (32.0-36.0) Red Cell Distribution Width 14.6 % (11.6-17.2) Platelet Count 191 TH/MM3 (150-450) Mean Platelet Volume 8.1 FL (7.0-11.0) Neutrophils (%) (Auto) 51.6 % (16.0-70.0) Lymphocytes (%) (Auto) 38.1 % (9.0-44.0) Monocytes (%) (Auto) 7.3 % (0.0-8.0) Eosinophils (%) (Auto) 2.2 % (0.0-4.0) Basophils (%) (Auto) 0.8 % (0.0-2.0) Neutrophils # (Auto) 3.4 TH/MM3 (1.8-7.7) Lymphocytes # (Auto) 2.5 TH/MM3 (1.0-4.8) Monocytes # (Auto) 0.5 TH/MM3 (0-0.9) Eosinophils # (Auto) 0.1 TH/MM3 (0-0.4) Basophils # (Auto) 0.1 TH/MM3 (0-0.2) CBC Comment DIFF FINAL Differential Comment Activated Partial 41.2 SEC Thromboplast Time (24.3-30.1) Sodium Level 139 MEQ/L (136-145) Potassium Level 4.8 MEQ/L (3.5-5.1) Chloride Level 103 MEQ/L (98-107) Carbon Dioxide Level 27.8 MEQ/L (21.0-32.0) Anion Gap 8 MEQ/L (5-15) Blood Urea Nitrogen 43 MG/DL (7-18) Creatinine 1.52 MG/DL (0.60-1.30) Estimat Glomerular Filtration 46 ML/MIN (>89) Rate Random Glucose 175 MG/DL (74-106) Calcium Level 8.6 MG/DL (8.5-10.1) Blood Type O POSITIVE Crossmatch Leukocyte-Reduced Red Blood Cells Blood Bank Comment Result Diagram: 06/16/1641806/16/16418 Telemetry: NSR (1) NSTEMI (non-ST elevated myocardial infarction) Plan: Stop Heparin and Aggrastat GI consult CABG schedule for Wed (2) Coronary artery disease (3) Acute respiratory failure with hypoxia Plan: resolved (4) SIRS (systemic inflammatory response syndrome) Plan: on antibiotics (5) History of ventricular tachycardia (6) Chronic kidney disease, stage III (moderate) (7) Chronic systolic heart failure Plan: on bumex (8) Dyslipidemia Plan: on statin (9) Hypertension Plan: controlled (10) Peripheral vascular disease (11) Peripheral neuropathy (12) Pressure ulcer of left heel, unstageable Plan: followed by podiatry (13) Pressure ulcer of right heel, unstageable Problem Qualifiers (1) Coronary artery disease: Qualified Code: I25.10 - Coronary artery disease involving [place] coronary artery of [place] heart, angina presence unspecified (2) Peripheral neuropathy: Qualified Code: G62.9 - Peripheral polyneuropathy Nicole Lazar Jun 16, 2016 14:54
[2016-06-16] MEDS: PANTOPRAZOLE INJ 80 MG in SODIUM CHLORIDE 0.9% INJ 100 ML IV SCH ×2 (15:09→23:03)
[2016-06-16 15:53] LABS: HEMATOCRIT 24.9 % (39.0-51.0); REVIEW FLAG FINAL
--- NOTE | 2016-06-16 19:02 | GIPROC ---
[facility] [address] [facility]. [facility], [address] EGD PROCEDURE REPORT EXAM DATE: 06/16/2016 PATIENT NAME: Parag Polo MR #: [id number] BIRTHDATE: 1950 ATTENDING: Nancy Lantigua MD ORDER #: [id number] MANAGER PLACEMENT: Shira Smith RN and Serenity Yoder STATUS: inpatient INDICATIONS: The patient is a 65 yr old male here for an EGD due to anemia, gi bleeding PROCEDURE PERFORMED: EGD, diagnostic MEDICATIONS: None and Per Anesthesia. TOPICAL ANESTHETIC: none CONSENT: The patient understands the risks and benefits of the procedure and understands that these risks include, but are not limited to: sedation, allergic reaction, infection, perforation and/or bleeding. Alternative means of evaluation and treatment include, among others: physical exam, x-rays, and/or surgical intervention. The patient elects to proceed with this endoscopic procedure. medical equipment was checked for proper function. Hand hygiene and appropriate measures for infection prevention was taken. After the risks, benefits and alternatives of the procedure were thoroughly explained, Informed consent was verified, confirmed and timeout was successfully executed by the treatment team. The patient was anesthetized with topical anesthesia and the Pentax EG-[id number] endoscope was introduced through the mouth and advanced to the second portion of the duodenum. Retroflexed views revealed a hiatal hernia The gastroscope was then slowly withdrawn and removed. Retained food in stomach suggesting gastroparesis. ADVERSE EVENTS: There were no complications. IMPRESSIONS: 1. Retained food in stomach suggesting gastroparesis 2. Retroflexed views revealed a hiatal hernia RECOMMENDATIONS: Resume anticoagulation monitor hb/ht if further bleeding-bleeding scan/ct abdomen/pelvis colonoscopy when cleared clinically PATIENT CONDITION: stable DISPOSITION: Inpatient REPEAT EXAM: Return as needed for EGD Nancy Lantigua MD eSigned: Nancy Lantigua MD 06/16/2016 7:01 PM cc:
[2016-06-16] MEDS ORDERED: PROPOFOL 200 MG/20 ML AMP IV ONE (19:34)
[2016-06-16] MEDS ORDERED: DO NOT ADM ANY ANTICOAGULANT DRUGS XX PRN (19:45)
[2016-06-16] MEDS: REMOVE OLD PATCH TD SCH (20:54)
[2016-06-16] MEDS ORDERED: DIATRIZOATE MEGLUM/DIATRIZOATE SOD 9 ML CUP PO ONE (21:45)
[2016-06-17] VITALS (15 sets, daily range): BP systolic 114–123; BP diastolic 58–74; PULSE 69; RESP 11–20; TEMP 97.2–98.7; O2SAT 89–96
[2016-06-17 00:21] LABS: HEMATOCRIT 26.2 % (39.0-51.0); REVIEW FLAG FINAL
[2016-06-17] MEDS: ACETAMINOPHEN/HYDROcodone 325 MG/5 MG TAB PO PRN ×3 (01:31→15:25)
[2016-06-17] MEDS: CEFEPIME INJ 2,000 MG in SODIUM CHLORIDE 0.9% INJ 100 ML IV SCH ×2 (02:21→15:00)
[2016-06-17] MEDS: AZITHROMYCIN INJ 500 MG in SODIUM CHLOR 0.9% 250 ML INJ 250 ML IV SCH (02:21)
[2016-06-17] MEDS: SODIUM CHLORIDE 0.9% FLUSH 5 ML FLUSH IV FLUSH PRN ×3 (02:22→22:28)
[2016-06-17] MEDS: HYDROmorphone HCL PF 1 MG/ML VIAL IV PUSH PRN ×4 (02:22→20:52)
[2016-06-17] MEDS: MORPHINE SULFATE 4 MG/ML INJ IV PRN ×5 (03:54→22:28)
[2016-06-17] MEDS: INSULIN ASPART SUPPLEMENTAL SCALE SQ SCH ×6 (03:57→21:01)
[2016-06-17] MEDS: CHLORHEXIDINE GLUCONATE 2 % 1 PACK (2 CLOTHS) TOP SCH (04:00)
[2016-06-17] MEDS ORDERED: DIATRIZOATE MEGLUM/DIATRIZOATE SOD 9 ML CUP PO ONE (07:00)
[2016-06-17] MEDS: CARVEDILOL 6.25 MG TAB PO SCH ×2 (07:59→20:50)
[2016-06-17] MEDS: NICOTINE 14 MG/24 HR PATCH TD SCH (07:59)
[2016-06-17] MEDS: AMIODARONE 200 MG TAB PO SCH (07:59)
[2016-06-17] MEDS: ATORVASTATIN 20 MG TAB PO SCH (08:00)
[2016-06-17] MEDS: amLODIPine BESYLATE 5 MG TAB PO SCH (08:00)
[2016-06-17] MEDS: ASPIRIN 81 MG CHEW TAB PO SCH (08:00)
[2016-06-17] MEDS: LINEZOLID 600 MG TAB PO SCH ×2 (08:00→20:50)
[2016-06-17] MEDS: GABAPENTIN 300 MG CAP PO SCH ×3 (08:01→18:00)
[2016-06-17] MEDS: BUMETANIDE INJ 1 MG/4 ML VIAL IV PUSH SCH ×2 (08:02→18:00)
[2016-06-17 08:05] LABS: BASOPHIL # 0.1 TH/MM3 (0-0.2); BASOPHIL % 0.9 % (0.0-2.0); EOSINOPHIL # 0.2 TH/MM3 (0-0.4); EOSINOPHIL % 2.7 % (0.0-4.0); HEMATOCRIT 27.2 % (39.0-51.0); HEMO FLAGS DIFF FINAL; LYMPH % 30.3 % (9.0-44.0); MEAN CELL VOLUME 89.9 FL (80.0-100.0); MEAN CORPUSCULAR HEMOGLOBIN 31.3 PG (27.0-34.0); MEAN CORPUSCULAR HGB CONC 34.8 % (32.0-36.0); MONO % 6.8 % (0.0-8.0); NEUT % 59.3 % (16.0-70.0); PLATELET COUNT 183 TH/MM3 (150-450); RED BLOOD COUNT 3.03 MIL/MM3 (4.50-5.90); RED CELL DISTRIBUTION WIDTH 14.7 % (11.6-17.2); WHITE BLOOD COUNT 6.7 TH/MM3 (4.0-11.0)
[2016-06-17 08:16] LABS: APTT (PATIENT) 28.7 SEC (24.3-30.1); INTERNATIONAL NORMALIZED RATIO 1.1 RATIO; PROTHROMBIN TIME - PATIENT 11.9 SEC (9.8-11.6)
[2016-06-17 08:24] LABS: BICARBONATE 25.9 MEQ/L (21.0-32.0); POTASSIUM 4.4 MEQ/L (3.5-5.1)
[2016-06-17] MEDS: DOCUSATE SODIUM 100 MG CAP PO SCH ×2 (09:00→20:50)
[2016-06-17] MEDS: ARTIFICIAL TEARS OPTH SOLN 15 ML BTL EACH EYE SCH ×3 (09:00→16:32)
[2016-06-17] MEDS: SODIUM CHLORIDE 0.9% FLUSH 5 ML FLUSH IVF SCH ×2 (09:00→20:51)
[2016-06-17] MEDS: INSULIN DETEMIR 100 UNITS/ML VIAL SQ SCH ×2 (09:00→20:50)
[2016-06-17] MEDS: SODIUM CHLORIDE 0.9% FLUSH 5 ML FLUSH IV FLUSH SCH ×2 (09:00→20:51)
--- NOTE | 2016-06-17 09:23 | PD.CARD.PN ---
Subjective Subjective Remarks chest pain free No signs of active bleeding s/p 2UPRBC's Objective Medications Current Medications Medications (Trade) Dose Ordered Sig/Lily Route Start Time Stop Time Status Last Admin (Zofran Inj) 4 mg Q6H PRN IV 06/07/16 04:30 Miscellaneous Information 1 Q361D XX 06/07/16 04:30 (Chlorhexidine 2% Cloth) Taper DAILY@04 TOP 06/08/16 04:00 06/04/17 03:59 06/17/16 04:00 Chlorhexidine Gluconate 3 pack 3 pack UNSCH PRN TOP 06/07/16 04:30 Cefepime HCl 2000 mg/Sodium Chloride 100 ml @ 200 mls/hr Q12H IV 06/07/16 15:00 06/17/16 02:21 (Zithromax Inj/ NS 250 ml Inj) 250 ml @ 250 mls/hr Q24H IV 06/08/16 03:00 06/17/16 02:21 (D50w (Vial) Inj) 25 ml UNSCH PRN IV PUSH 06/07/16 04:30 (Glucagon Inj) 1 mg UNSCH PRN OTHER 06/07/16 04:30 (NovoLOG SUPPLEMENTAL SCALE) 1 Q4HR SQ 06/07/16 04:30 06/16/16 08:00 (Brilinta) 90 mg BID PO 06/07/16 09:00 Hold 06/11/16 08:13 (Coreg) 6.25 mg Q12HR PO 06/07/16 09:00 06/17/16 07:59 (Norvasc) 2.5 mg DAILY PO 06/07/16 09:00 06/17/16 08:00 (Cordarone) 200 mg DAILY PO 06/07/16 09:00 06/17/16 07:59 (Lipitor) 20 mg DAILY PO 06/07/16 09:00 06/17/16 08:00 (Neurontin) 300 mg TID PO 06/07/16 09:00 06/17/16 08:01 (Levemir Inj) 8 units Q12HR SQ 06/07/16 09:00 06/16/16 20:54 (Tylenol) 650 mg Q6H PRN PO 06/07/16 06:45 (Tears Naturale Opth Soln) 1 drop TID EACH EYE 06/07/16 09:00 06/09/16 17:31 (Colace) 100 mg BID PO 06/07/16 09:00 06/15/16 20:14 (Senokot) 17.2 mg Q12H PRN PO 06/07/16 06:45 (Zyvox) 600 mg Q12HR PO 06/07/16 21:00 06/17/16 08:00 (Roland 5-325 Mg) 2 tab Q4H PRN PO 06/09/16 10:45 06/17/16 08:01 (Aspirin Chew) 81 mg DAILY PO 06/10/16 09:00 06/17/16 08:00 (NS Flush) 2 ml UNSCH PRN IVF 06/09/16 15:30 06/09/16 23:38 (NS Flush) 2 ml BID IVF 06/09/16 21:00 06/16/16 20:53 (Habitrol 14 Mg Patch.24 Hr) 1 patch DAILY TD 06/10/16 09:00 06/17/16 07:59 Miscellaneous Information 1 HS TD 06/10/16 21:00 06/16/16 20:54 (Bumex Inj) 1 mg BID@09,18 IV PUSH 06/10/16 09:00 06/17/16 08:02 (NS Flush) 2 ml BID IV FLUSH 06/10/16 21:00 06/16/16 20:53 (NS Flush) 2 ml UNSCH PRN IV FLUSH 06/10/16 15:30 06/17/16 03:54 (Morphine Inj) 2 mg Q2H PRN IV 06/11/16 18:30 06/17/16 03:54 Hydromorphone HCl 0.5 mg 0.5 mg Q4H PRN IV PUSH 06/12/16 15:00 06/17/16 08:07 Potassium Chloride 100 ml @ 50 mls/hr Q2H PRN IV 06/13/16 07:45 Potassium Chloride 100 ml @ 50 mls/hr Q2H PRN IV 06/13/16 07:45 Potassium Chloride 100 ml @ 25 mls/hr UNSCH PRN IV 06/13/16 07:45 Potassium Chloride 100 ml @ 50 mls/hr Q2H PRN IV 06/13/16 07:45 (Magnesium Sulfate Inj/NS Inj) 100 ml @ 50 mls/hr UNSCH PRN IV 06/13/16 07:45 Magnesium Oxide 800 mg 800 mg UNSCH PRN PO 06/13/16 07:45 (Magnesium Sulfate Inj/NS Inj) 100 ml @ 50 mls/hr UNSCH PRN IV 06/13/16 07:45 Potassium Phosphate 2000 mg 2,000 mg Q4H PRN PO 06/13/16 07:45 (Sodium Phosphate Inj/NS 250 ml Inj) 250 ml @ 42 mls/hr UNSCH PRN IV 06/13/16 07:45 Potassium Phosphate 2000 mg 2,000 mg UNSCH PRN PO/TUBE 06/13/16 07:45 (Potassium Phosphate Inj/NS 250 ml Inj) 260 ml @ 42 mls/hr UNSCH PRN IV 06/13/16 07:45 Lorazepam 0.5 mg 0.5 mg Q6H PRN PO 06/15/16 09:00 06/16/16 10:14 (Protonix Inj/NS Inj) 100 ml @ 10 mls/hr CONTINUOUS IV 06/16/16 10:00 06/16/16 23:03 Miscellaneous Information ALL NURSING DEPARTME... UNSCH PRN XX 06/16/16 19:45 06/17/16 19:44 Vital Signs / I&O Vital Signs Date Time Temp Pulse Resp B/P Pulse Ox O2 Delivery O2 Flow Rate FiO2 06/17/16 08:24 95 Nasal Cannula 3.00 06/17/16 06:00 69 06/17/16 04:00 95 Nasal Cannula 6.00 06/17/16 04:00 69 06/17/16 04:00 97.9 69 18 114/59 95 06/17/16 02:00 69 06/17/16 01:50 95 Nasal Cannula 5.00 06/17/16 00:00 91 Nasal Cannula 4.00 06/17/16 00:00 97.9 69 11 115/59 89 06/17/16 00:00 69 06/16/16 22:00 69 06/16/16 20:07 93 Nasal Cannula 3.00 06/16/16 20:00 98.2 69 13 135/66 89 06/16/16 20:00 91 Nasal Cannula 3.00 06/16/16 20:00 69 06/16/16 19:30 69 19 111/60 92 Nasal Cannula 3 06/16/16 19:15 69 19 112/58 92 Nasal Cannula 3 06/16/16 19:07 97.6 69 19 118/63 92 Nasal Cannula 3 06/16/16 18:00 69 06/16/16 16:29 20 06/16/16 16:00 98.6 69 16 103/59 95 06/16/16 16:00 95 Nasal Cannula 3.00 06/16/16 16:00 69 06/16/16 10:19 18 06/16/16 10:00 69 I/O 06/16/16 06/16/16 06/16/16 06/17/16 06/17/16 06/17/16 07:00 15:00 23:00 07:00 15:00 23:00 Intake Total 198 ml 1114 ml 656 ml 654 ml Output Total 600 ml 1700 ml 1350 ml 1100 ml Balance -402 ml -586 ml -694 ml -446 ml Intake Oral 200 ml 350 ml 240 ml IV Total 198 ml 414 ml 106 ml 414 ml Packed Cells 500 ml Other 200 ml Output Urine Total 600 ml 1700 ml 1350 ml 1100 ml Estimated Blood Loss 0 ml Other 0 ml # Bowel Movements 2 1 0 Physical Exam GENERAL: Well-nourished, well-developed patient. SKIN: Warm and dry. HEAD: Normocephalic. EYES: No scleral icterus. No injection or drainage. NECK: Supple, trachea midline. No JVD or lymphadenopathy. CARDIOVASCULAR: Regular rate and rhythm without murmurs, gallops, or rubs. RESPIRATORY: Breath sounds equal bilaterally. No accessory muscle use. GASTROINTESTINAL: Abdomen soft, non-tender, nondistended. EXTREMITIES: No cyanosis, or edema. NEUROLOGICAL: Awake, alert, and oriented x 3. Non-focal. Laboratory Laboratory Tests Test 06/16/16 06/16/16 06/16/16 06/17/16 11:50 15:33 23:40 07:43 Blood Type O POSITIVE Crossmatch Leukocyte-Reduced Red Blood Cells Blood Bank Comment Hemoglobin 8.6 GM/DL 8.9 GM/DL 9.5 GM/DL Hematocrit 24.9 % 26.2 % 27.2 % White Blood Count 6.7 TH/MM3 Red Blood Count 3.03 MIL/MM3 Mean Corpuscular Volume 89.9 FL Mean Corpuscular Hemoglobin 31.3 PG Mean Corpuscular Hemoglobin 34.8 % Concent Red Cell Distribution Width 14.7 % Platelet Count 183 TH/MM3 Mean Platelet Volume 7.6 FL Neutrophils (%) (Auto) 59.3 % Lymphocytes (%) (Auto) 30.3 % Monocytes (%) (Auto) 6.8 % Eosinophils (%) (Auto) 2.7 % Basophils (%) (Auto) 0.9 % Neutrophils # (Auto) 4.0 TH/MM3 Lymphocytes # (Auto) 2.0 TH/MM3 Monocytes # (Auto) 0.5 TH/MM3 Eosinophils # (Auto) 0.2 TH/MM3 Basophils # (Auto) 0.1 TH/MM3 CBC Comment DIFF FINAL Differential Comment Prothrombin Time 11.9 SEC Prothromb Time International 1.1 RATIO Ratio Activated Partial 28.7 SEC Thromboplast Time Sodium Level 141 MEQ/L Potassium Level 4.4 MEQ/L Chloride Level 107 MEQ/L Carbon Dioxide Level 25.9 MEQ/L Anion Gap 8 MEQ/L Blood Urea Nitrogen 34 MG/DL Creatinine 1.30 MG/DL Estimat Glomerular Filtration 55 ML/MIN Rate Random Glucose 85 MG/DL Calcium Level 8.9 MG/DL Assessment and Plan Problem List: (1) NSTEMI (non-ST elevated myocardial infarction) Assessment and Plan: Cont current medication management GI following Awaiting CABG (2) Coronary artery disease (3) Acute respiratory failure with hypoxia (4) SIRS (systemic inflammatory response syndrome) (5) History of ventricular tachycardia (6) Chronic kidney disease, stage III (moderate) (7) Chronic systolic heart failure (8) Dyslipidemia (9) Hypertension (10) Peripheral vascular disease (11) Peripheral neuropathy (12) Pressure ulcer of left heel, unstageable (13) Pressure ulcer of right heel, unstageable Problem Qualifiers (1) Coronary artery disease: Qualified Code: I25.10 - Coronary artery disease involving [place] coronary artery of [place] heart, angina presence unspecified (2) Peripheral neuropathy: Qualified Code: G62.9 - Peripheral polyneuropathy Asher Meade MD Jun 17, 2016 09:23
--- NOTE | 2016-06-17 11:25 | PD.CAR.PN ---
CVT Progress Note Subjective/Hospital Course: 65-year-old male. Date of admission 06/07/2016. Past medical history includes recent heart catheterization 04/30/[address] Kan secondary to an inferior STEMI with PCI/MERE placed placed to the RCA and PDA. Left main was 30%. LAD was 40% proximal/80% diagonal. Left circumflex was 30%. EF was 20/5/30 percent. Im [place] devices placed as well. Patient had prolonged intubation During this hospitalization developed V. tach as well and a dual-chamber defibrillator was placed by Dr. Yousif /DDD 70 on 05/27. presented this admission , admitted this admission with NSTEMI, resp failure with hypoxia , underwent cardiac cath by Dr Kan, POBA to stent thrombosis of RCA 06/09 pt was on Brilinta at home PMH: CAD, with 2 prior stents by the hypertension, diabetes,'s chronic systolic heart failure EF 20-25% , , peripheral vascular disease with a right femoropopliteal in situ saphenous vein revision [address] Mayes with thrombolytic colectomy to the popliteal artery and anterior and posterior tibial arteries, 06/13 NO PAIN DURING THE NIGHT OOB with assistance on aggrastat and heparin 06/16 pt developed GI Bleed with Heme + stools HGB 7.0/ for 2 units PRBC GI consult, for EGD today on protonix gtt heparin and Aggrastat dc rescheduled for surgery on 06/17 EGD completed , gastroparesis CT abd / pelvis pending HGB stable , spoke with GI Dr Lantigua will need colonoscopy as outpt hold on restarting heparin and Aggrastat for now although GI was ok with restarting anticoagulation keep scheduled for surgery in am Objective: GENERAL: SKIN: Warm and dry./ dry necrotic tissue both heels HEAD: Normocephalic. EYES: No scleral icterus. No injection or drainage. NECK: Supple, trachea midline. No JVD or lymphadenopathy. CARDIOVASCULAR: Regular rate and rhythm without murmurs, gallops, or rubs. RESPIRATORY: Breath sounds equal bilaterally. No accessory muscle use. GASTROINTESTINAL: Abdomen soft, non-tender, nondistended. MUSCULOSKELETAL: No cyanosis, or edema. BACK: Nontender without obvious deformity. No CVA tenderness. Vital Signs Date Time Temp Pulse Resp B/P Pulse Ox O2 Delivery O2 Flow Rate FiO2 06/17/16 10:24 21 06/17/16 10:00 69 06/17/16 09:01 20 06/17/16 08:37 22 06/17/16 08:24 95 Nasal Cannula 3.00 06/17/16 06:00 69 06/17/16 04:00 95 Nasal Cannula 6.00 06/17/16 04:00 69 06/17/16 04:00 97.9 69 18 114/59 95 06/17/16 02:00 69 06/17/16 01:50 95 Nasal Cannula 5.00 06/17/16 00:00 91 Nasal Cannula 4.00 06/17/16 00:00 97.9 69 11 115/59 89 06/17/16 00:00 69 06/16/16 22:00 69 06/16/16 20:07 93 Nasal Cannula 3.00 06/16/16 20:00 98.2 69 13 135/66 89 06/16/16 20:00 91 Nasal Cannula 3.00 06/16/16 20:00 69 06/16/16 19:30 69 19 111/60 92 Nasal Cannula 3 06/16/16 19:15 69 19 112/58 92 Nasal Cannula 3 06/16/16 19:07 97.6 69 19 118/63 92 Nasal Cannula 3 06/16/16 18:00 69 06/16/16 16:00 98.6 69 16 103/59 95 06/16/16 16:00 95 Nasal Cannula 3.00 06/16/16 16:00 69 Labs: Laboratory Tests Test 06/16/16 06/17/16 23:40 07:43 Hemoglobin 8.9 GM/DL 9.5 GM/DL (13.0-17.0) (13.0-17.0) Hematocrit 26.2 % 27.2 % (39.0-51.0) (39.0-51.0) White Blood Count 6.7 TH/MM3 (4.0-11.0) Red Blood Count 3.03 MIL/MM3 (4.50-5.90) Mean Corpuscular Volume 89.9 FL (80.0-100.0) Mean Corpuscular Hemoglobin 31.3 PG (27.0-34.0) Mean Corpuscular Hemoglobin 34.8 % Concent (32.0-36.0) Red Cell Distribution Width 14.7 % (11.6-17.2) Platelet Count 183 TH/MM3 (150-450) Mean Platelet Volume 7.6 FL (7.0-11.0) Neutrophils (%) (Auto) 59.3 % (16.0-70.0) Lymphocytes (%) (Auto) 30.3 % (9.0-44.0) Monocytes (%) (Auto) 6.8 % (0.0-8.0) Eosinophils (%) (Auto) 2.7 % (0.0-4.0) Basophils (%) (Auto) 0.9 % (0.0-2.0) Neutrophils # (Auto) 4.0 TH/MM3 (1.8-7.7) Lymphocytes # (Auto) 2.0 TH/MM3 (1.0-4.8) Monocytes # (Auto) 0.5 TH/MM3 (0-0.9) Eosinophils # (Auto) 0.2 TH/MM3 (0-0.4) Basophils # (Auto) 0.1 TH/MM3 (0-0.2) CBC Comment DIFF FINAL Differential Comment Prothrombin Time 11.9 SEC (9.8-11.6) Prothromb Time International 1.1 RATIO Ratio Activated Partial 28.7 SEC Thromboplast Time (24.3-30.1) Sodium Level 141 MEQ/L (136-145) Potassium Level 4.4 MEQ/L (3.5-5.1) Chloride Level 107 MEQ/L (98-107) Carbon Dioxide Level 25.9 MEQ/L (21.0-32.0) Anion Gap 8 MEQ/L (5-15) Blood Urea Nitrogen 34 MG/DL (7-18) Creatinine 1.30 MG/DL (0.60-1.30) Estimat Glomerular Filtration 55 ML/MIN (>89) Rate Random Glucose 85 MG/DL (74-106) Calcium Level 8.9 MG/DL (8.5-10.1) Result Diagram: 06/17/16 0743 06/17/1643 Telemetry: NSR (1) NSTEMI (non-ST elevated myocardial infarction) Plan: hol don restarting heparin and Aggrastat pt on ASA GI following CABG for am (2) Coronary artery disease Plan: statin BB , ASA (3) Acute respiratory failure with hypoxia Plan: resolved (4) SIRS (systemic inflammatory response syndrome) Plan: improved, on antibiotics (5) History of ventricular tachycardia (6) Chronic kidney disease, stage III (moderate) (7) Chronic systolic heart failure (8) Dyslipidemia Plan: statin (9) Hypertension (10) Peripheral vascular disease (11) Peripheral neuropathy (12) Pressure ulcer of left heel, unstageable Plan: podiatry following (13) Pressure ulcer of right heel, unstageable Problem Qualifiers (1) Coronary artery disease: Qualified Code: I25.10 - Coronary artery disease involving [place] coronary artery of [place] heart, angina presence unspecified (2) Peripheral neuropathy: Qualified Code: G62.9 - Peripheral polyneuropathy Nicole Lazar Jun 17, 2016 11:25
[2016-06-17] MEDS: LORazepam 0.5 MG TAB PO PRN (15:25)
--- NOTE | 2016-06-17 16:22 | HHI.GIFU ---
GI Follow-up Note Consult Follow-up Subjective: Patient laying in bed comfortably, awaiting ct abdomen/pelvis , hungry.Had some melanotic stools, awaiting CABG in am .EGD done yesterday, no active bleeding, retained food suggesting gastroparesis Objective: PHYSICAL EXAMINATION: Vitals signs stable No fever Vital Signs Date Time Temp Pulse Resp B/P Pulse Ox O2 Delivery O2 Flow Rate FiO2 06/17/16 14:00 69 06/17/16 12:53 19 06/17/16 12:00 69 06/17/16 12:00 95 Nasal Cannula 3.00 06/17/16 12:00 98.3 69 20 118/70 95 06/17/16 10:24 21 06/17/16 10:00 69 06/17/16 09:01 20 06/17/16 08:24 95 Nasal Cannula 3.00 HEENT: Pupils round and reactive to light; normocephalic; atraumatic; no jaundice. Throat is clear. NECK: Neck is supple, no JVD, no lymphadenopathy. CHEST: Chest is clear to auscultation and percussion. CARDIAC: Regular rate and rhythm with no murmur gallop or rubs. ABDOMEN: Soft, nondistended, nontender; no hepatosplenomegaly; bowel sounds are present in all four quadrants. EXTREMITIES: No clubbing, cyanosis, or edema. SKIN: Normal; no rash; no jaundice. INVESTMENT TRADER: No focal deficits; alert and oriented times three. Available Data (labs, X- Rays, Procedues) : Laboratory Tests Test 06/15/16 06/16/16 06/16/16 06/16/16 22:20 00:26 04:19 11:50 Activated Partial 41.9 SEC 41.2 SEC Thromboplast Time Blood Type O POSITIVE O POSITIVE Crossmatch Leukocyte-Reduced Leukocyte-Reduced Red Blood Red Blood Cells Cells Blood Bank Comment White Blood Count 6.6 TH/MM3 Red Blood Count 2.22 MIL/MM3 Hemoglobin 7.0 GM/DL Hematocrit 20.2 % Mean Corpuscular Volume 90.8 FL Mean Corpuscular Hemoglobin 31.4 PG Mean Corpuscular Hemoglobin 34.6 % Concent Red Cell Distribution Width 14.6 % Platelet Count 191 TH/MM3 Mean Platelet Volume 8.1 FL Neutrophils (%) (Auto) 51.6 % Lymphocytes (%) (Auto) 38.1 % Monocytes (%) (Auto) 7.3 % Eosinophils (%) (Auto) 2.2 % Basophils (%) (Auto) 0.8 % Neutrophils # (Auto) 3.4 TH/MM3 Lymphocytes # (Auto) 2.5 TH/MM3 Monocytes # (Auto) 0.5 TH/MM3 Eosinophils # (Auto) 0.1 TH/MM3 Basophils # (Auto) 0.1 TH/MM3 CBC Comment DIFF FINAL Differential Comment Sodium Level 139 MEQ/L Potassium Level 4.8 MEQ/L Chloride Level 103 MEQ/L Carbon Dioxide Level 27.8 MEQ/L Anion Gap 8 MEQ/L Blood Urea Nitrogen 43 MG/DL Creatinine 1.52 MG/DL Estimat Glomerular Filtration 46 ML/MIN Rate Random Glucose 175 MG/DL Calcium Level 8.6 MG/DL Test 06/16/16 06/16/16 06/17/16 15:33 23:40 07:43 Hemoglobin 8.6 GM/DL 8.9 GM/DL 9.5 GM/DL Hematocrit 24.9 % 26.2 % 27.2 % White Blood Count 6.7 TH/MM3 Red Blood Count 3.03 MIL/MM3 Mean Corpuscular Volume 89.9 FL Mean Corpuscular Hemoglobin 31.3 PG Mean Corpuscular Hemoglobin 34.8 % Concent Red Cell Distribution Width 14.7 % Platelet Count 183 TH/MM3 Mean Platelet Volume 7.6 FL Neutrophils (%) (Auto) 59.3 % Lymphocytes (%) (Auto) 30.3 % Monocytes (%) (Auto) 6.8 % Eosinophils (%) (Auto) 2.7 % Basophils (%) (Auto) 0.9 % Neutrophils # (Auto) 4.0 TH/MM3 Lymphocytes # (Auto) 2.0 TH/MM3 Monocytes # (Auto) 0.5 TH/MM3 Eosinophils # (Auto) 0.2 TH/MM3 Basophils # (Auto) 0.1 TH/MM3 CBC Comment DIFF FINAL Differential Comment Prothrombin Time 11.9 SEC Prothromb Time International 1.1 RATIO Ratio Activated Partial 28.7 SEC Thromboplast Time Sodium Level 141 MEQ/L Potassium Level 4.4 MEQ/L Chloride Level 107 MEQ/L Carbon Dioxide Level 25.9 MEQ/L Anion Gap 8 MEQ/L Blood Urea Nitrogen 34 MG/DL Creatinine 1.30 MG/DL Estimat Glomerular Filtration 55 ML/MIN Rate Random Glucose 85 MG/DL Calcium Level 8.9 MG/DL ASSESSMENT/PLAN: anemia secondary gi bleeding-hemodynamically stable gi bleeding, most likely triggered by anticoagulation therapy severe cad-awaiting cabg in am Recommendations ok to start anticoagulation from gi point continue ppi advance diet ct abdomen/pelvis colonoscopy op post cabg if active bleeding or hb continues to drop-bleeding scan It was a pleasure seeing Parag Polo. Thank you for this consult. Entered by: Nancy Black MD Jun 17, 2016 16:22
--- NOTE | 2016-06-17 17:56 | RADRPT ---
EXAM DATE/TIME: 06/17/2016 11:44 [facility] COMPARISON: No previous studies available for comparison. INDICATIONS : Anemia. Bleeding. ORAL CONTRAST: Prescribed oral contrast ingested. RADIATION DOSE: 15.66 CTDIvol (mGy) MEDICAL HISTORY : Cardiovascular disease. Diabetes mellitus type 2. Peripheral vascular disease. SURGICAL HISTORY : None. ENCOUNTER: Initial ACUITY: 2 days PAIN SCALE: 0/10 LOCATION: Abdomen. TECHNIQUE: Volumetric scanning of the abdomen and pelvis was performed. Using automated exposure control and ad justment of the mA and/or kV according to patient size, radiation dose was kept as low as reasonably achievable to obtain optimal diagnostic quality images. FINDINGS: Uncomplicated colonic diverticulosis is noted. No acute diverticulitis is noted. No bowel obstructi on is noted. Evaluation of the solid organs of the abdomen is limited by the lack of intravenous con trast. There are two cysts within the left kidney with the larger measuring 2.8 cm. No hydronephros is or calcified calculus is noted within the other kidney. Small bilateral pleural effusions (right larger than left) are noted. Bibasilar compressive atelectasis and/or infiltrates are also noted. T he heart is enlarged. There is midline ventral abdominal wall hernia containing only fat. There is a n infrarenal abdominal aorta aneurysm measuring 3 cm in greatest dimension. There is also aneurysmal dilatation of the right common iliac artery measuring 2.3 cm. the urinary bladder is unremarkable. The prostate gland is mildly prominent. There is intramuscular lipoma involving one of the muscles o f the left quadriceps. Vascular stents are noted within the iliac arteries bilaterally as well as wi thin the left femoral artery. Degenerative changes are noted throughout the thoracolumbar spine. CONCLUSION: 1. Uncomplicated colonic diverticulosis. 2. 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 3. Ventral abdominal wall hernia containing only fat. 4. Enlarged prostate. 5. Small bilateral pleural effusions (right larger than left). 6. Bibasilar alveolar consolidations consistent with compressive atelectasis and/or infiltrates. 7. Cardiomegaly. 8. 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 9. Left renal cysts. 10. Degenerative changes throughout the thoracolumbar spine. South Munoz MD on June 17, 2016 at 17:38 Board Certified Radiologist. This report was verified electronically.
--- NOTE | 2016-06-17 20:18 | HHI.PR ---
Subjective Remarks tolerating po gradually no active bleeding reported Objective Vitals Vital Signs Date Time Temp Pulse Resp B/P Pulse Ox O2 Delivery O2 Flow Rate FiO2 06/17/16 20:14 94 06/17/16 18:33 69 06/17/16 18:29 20 06/17/16 16:25 22 06/17/16 16:00 95 Nasal Cannula 3.00 06/17/16 16:00 69 06/17/16 16:00 98.7 69 20 114/74 95 06/17/16 14:00 69 06/17/16 12:53 19 06/17/16 12:00 69 06/17/16 12:00 95 Nasal Cannula 3.00 06/17/16 12:00 98.3 69 20 118/70 95 06/17/16 10:00 69 06/17/16 08:24 95 Nasal Cannula 3.00 06/17/16 08:00 98.0 69 20 121/65 96 06/17/16 08:00 95 Nasal Cannula 3.00 06/17/16 06:00 69 06/17/16 04:00 95 Nasal Cannula 6.00 06/17/16 04:00 69 06/17/16 04:00 97.9 69 18 114/59 95 06/17/16 02:00 69 06/17/16 01:50 95 Nasal Cannula 5.00 06/17/16 00:00 91 Nasal Cannula 4.00 06/17/16 00:00 97.9 69 11 115/59 89 06/17/16 00:00 69 06/16/16 22:00 69 I/O 06/16/16 06/16/16 06/16/16 06/17/16 06/17/16 06/17/16 07:00 15:00 23:00 07:00 15:00 23:00 Intake Total 198 ml 1114 ml 656 ml 654 ml Output Total 600 ml 1700 ml 1350 ml 1100 ml 1200 ml Balance -402 ml -586 ml -694 ml -446 ml -1200 ml Intake Oral 200 ml 350 ml 240 ml IV Total 198 ml 414 ml 106 ml 414 ml Packed Cells 500 ml Other 200 ml Output Urine Total 600 ml 1700 ml 1350 ml 1100 ml 1200 ml Estimated Blood Loss 0 ml Other 0 ml # Bowel Movements 2 1 0 0 Result Diagram: 06/17/16 0743 06/17/1643 Imaging Last Impressions Abdomen/Pelvis CT 06/17/16 0000 Signed Impressions: Service Date/Time: Friday, June 17, 2016 11:44 - CONCLUSION: 1. Uncomplicated colonic diverticulosis. 2. 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 3. Ventral abdominal wall hernia containing only fat. 4. Enlarged prostate. 5. Small bilateral pleural effusions (right larger than left). 6. Bibasilar alveolar consolidations consistent with compressive atelectasis and/or infiltrates. 7. Cardiomegaly. 8. 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 9. Left renal cysts. 10. Degenerative changes throughout the thoracolumbar spine. South Munoz MD Chest X-Ray 06/13/16 0000 Signed Impressions: Service Date/Time: Monday, June 13, 2016 07:43 - CONCLUSION: Right perihilar infiltrate is a new finding from the prior exam. Trace amount of fluid tracking along the minor fissure. Edgar Jones Jr., MD Lower Extremity Ultrasound 06/10/16 0000 Signed Impressions: Service Date/Time: Friday, June 10, 2016 16:44 - CONCLUSION: Venous mapping study as described. Gregorio Walsh MD Carotid Artery Ultrasound 06/10/16 0000 Signed Impressions: Service Date/Time: Friday, June 10, 2016 16:11 - CONCLUSION: Mild to moderate plaquing bilaterally with less than 50%% diameter stenosis by velocity criteria. Gregorio Walsh MD CT Angiography 06/07/16 0000 Signed Impressions: Service Date/Time: Tuesday, June 07, 2016 15:18 - CONCLUSION: 1. No pulmonary embolus. 2. Very small, bilateral pleural effusions and patchy bilateral airspace opacities. 3. Mildly enlarged mediastinal lymph nodes, nonspecific. 4. Several nodules up to 2 cm in size of the left adrenal gland, incompletely characterized but statistically most likely adenomas. There is a cyst of the left kidney. 5. Coronary artery calcification. Florencio Hamilton MD Objective Remarks awake and alert NAD anicteric lungs clear regular rhythm- paced on telemetry abdomen soft, nontender, good bowel sounds extremities + trace pretibial edema neurologic exam- unremarkable Procedures 3/20- EGD- retained food A/P Problem List: (1) History of ventricular tachycardia ICD Code: Z86.79 Status: Acute (2) Diabetes mellitus ICD Code: E11.9 Status: Acute (3) Anemia ICD Code: D64.9 Status: Acute (4) Hyperparathyroidism ICD Code: E21.3 Status: Acute (5) Peripheral neuropathy ICD Code: G62.9 Status: Acute (6) Peripheral vascular disease ICD Code: I73.9 Status: Acute (7) Leukocytosis ICD Code: D72.829 Status: Acute (8) Chronic kidney disease, stage III (moderate) ICD Code: N18.3 Status: Acute (9) Dyslipidemia ICD Code: E78.5 Status: Acute (10) Hypertension ICD Code: I10 Status: Acute (11) Chronic systolic heart failure ICD Code: I50.22 Status: Acute (12) Coronary artery disease ICD Code: I25.10 Status: Acute (13) Acute respiratory failure with hypoxia ICD Code: J96.01 Status: Acute (14) SIRS (systemic inflammatory response syndrome) ICD Code: R65.10 Status: Acute Assessment and Plan Chronic systolic heart failure EF 25-30% with mild LVH and diffuse hypokinesis Peripheral vascular disease - history of right femoropopliteal with in situ saphenous vein grafting with thrombectomy of popliteal artery/anterior posterior tibial arteries [address] Mayes Coronary artery disease recent PCI/drug-eluting stent to RCA/PDA 04/[address] Kan secondary to inferior STEMI Dual-chamber defibrillator placed 05/[address] Yousif. DDD/70 Hypertension Dyslipidemia Elevated troponin Stent thrombosis RCA Severe CAD three-vessel LAD, circumflex, stented RCA- Cardiology -Dr. Kan ff S/P left heart catheterization 06/09/16-left main 4050 percent occlusion, left circumflex 70% occlusion,thrombosed RCA Continue amiodarone 200 mg by mouth daily for history of V. tach Off Brilinta 90 mg twice a day- plan for CABG aspirin 81 mg daily for heart stent- Hold Brilinta Bumex 1 mg IV twice a day Kilo 30 mg by mouth daily for dyslipidemia. on Coreg twice a day and Norvasc 2.5 mg by mouth daily for hypertension. On double dose at home. Cardiothoracic surgery Dr. Langley tentatively scheduled for CABG on Thursday Heparin and Aggrastat infusions, Brilinta discontinued on 06/11 [place] for accurate I's and O's in a critically ill patient if required S/P EGD A- GIB - with melena S/P transfuse total 4 units RBC IV PPI. monitor f Acute hypoxemic respiratory failure On nasal cannula 3 L/m O2 sat 93-94%, however on 06/13/16 noted more sob and requiring increasing O2 on venti mask now. Wean O2 as tolerated Bronchodilator therapy every 6 hours and as needed Initiate incentive spirometry-encourage use Requiring more O2 on 06/13. Will do ABG, CXR, BNP,check labs cbc, bmp, mag Chest x-ray reveals bilateral lower lobe infiltrates. Repeat CXR 06/13/16 Right perihilar infiltrate is a new finding from the prior exam. Trace amount of fluid tracking along the minor fissure. BNP in 500s Continue IV antibiotics for aspiration PNA. Wean off O2. Aspiration precautions discussed with the patient at length, he expressed understanding. Gastroesophageal reflux disease ADA diet. Protonix for GI prophylaxis. On Protonix home. Colace/as needed Senokot for bowel regimen Diabetes mellitus type 2 Hyperglycemia of critical illness On lispro 15 units daily at home. Sliding-scale insulin with Accu-Cheks every 4 hours to maintain euglycemia. Will initiate insulin drip if unable to maintain tight euglycemic control Peripheral neuropathy secondary to diabetes Anxiety Neurontin 300 mg by mouth 3 times a day for neuropathy. Acetaminophen for fever [place]/morphine for pain management, [place] to 10/325mg, Dilaudid added every 4 hours when necessary for pain Change Xanax to ativan 0.5 Q6 hrs prn Chronic kidney disease stage III. Creatinine 1.3 returned to baseline Monitor urine output closely. Accurate I's and O's Possible community-acquired pneumonia History of MRSA treated with Zyvox cefepime/Zithromax. Zyvox 2/2 history of MRSA pneumonia in sputum Blood cultures 2, sputum and UA NGTD Influenza negative FEN: Replace electrolytes as clinically indicated Osteoarthritis PT evaluate and treat Prophylaxis - GI - Protonix - DVT - SCD/Heparin infusion Discussed with the nurse, patient Problem Qualifiers (1) Diabetes mellitus: Problem Qualifiers (1) Diabetes mellitus: Qualified Code: E11.8 - Type 2 diabetes mellitus with complication, with long- term current use of insulin (2) Anemia: Qualified Code: D64.9 - Anemia, unspecified type (3) Peripheral neuropathy: Qualified Code: G62.9 - Peripheral polyneuropathy (4) Leukocytosis: Qualified Code: D72.829 - Leukocytosis, unspecified type (5) Coronary artery disease: Qualified Code: I25.10 - Coronary artery disease involving [place] coronary artery of [place] heart, angina presence unspecified Marie Alex MD Jun 17, 2016 20:18
[2016-06-17] MEDS: REMOVE OLD PATCH TD SCH (20:51)
[2016-06-17] MEDS: PANTOPRAZOLE INJ 80 MG in SODIUM CHLORIDE 0.9% INJ 100 ML IV SCH (23:58)
[2016-06-18] VITALS (12 sets, daily range): BP systolic 76–134; BP diastolic 44–68; PULSE 69–70; RESP 12–20; TEMP 97.7–98.1; O2SAT 92–97
[2016-06-18] MEDS: HYDROmorphone HCL PF 1 MG/ML VIAL IV PUSH PRN ×2 (01:07→05:42)
[2016-06-18] MEDS: AZITHROMYCIN INJ 500 MG in SODIUM CHLOR 0.9% 250 ML INJ 250 ML IV SCH (02:53)
[2016-06-18] MEDS: CEFEPIME INJ 2,000 MG in SODIUM CHLORIDE 0.9% INJ 100 ML IV SCH ×2 (02:53→16:25)
[2016-06-18] MEDS: MORPHINE SULFATE 4 MG/ML INJ IV PRN (03:00)
[2016-06-18] MEDS: SODIUM CHLORIDE 0.9% FLUSH 5 ML FLUSH IV FLUSH PRN ×2 (03:00→08:19)
[2016-06-18] MEDS: INSULIN ASPART SUPPLEMENTAL SCALE SQ SCH ×3 (04:00→08:00)
[2016-06-18] MEDS: CHLORHEXIDINE GLUCONATE 2 % 1 PACK (2 CLOTHS) TOP SCH (04:00)
[2016-06-18 05:24] LABS: APTT (PATIENT) 29.4 SEC (24.3-30.1)
[2016-06-18] MEDS: BUMETANIDE INJ 1 MG/4 ML VIAL IV PUSH SCH (08:17)
[2016-06-18] MEDS: amLODIPine BESYLATE 5 MG TAB PO SCH (08:17)
[2016-06-18] MEDS: AMIODARONE 200 MG TAB PO SCH ×2 (08:17→21:34)
[2016-06-18] MEDS: NICOTINE 14 MG/24 HR PATCH TD SCH (08:18)
[2016-06-18] MEDS: SODIUM CHLORIDE 0.9% FLUSH 5 ML FLUSH IVF PRN (08:18)
[2016-06-18] MEDS: CARVEDILOL 6.25 MG TAB PO SCH ×2 (08:18→21:00)
[2016-06-18] MEDS: ASPIRIN 81 MG CHEW TAB PO SCH (08:18)
[2016-06-18] MEDS: GABAPENTIN 300 MG CAP PO SCH ×2 (08:18→13:00)
[2016-06-18] MEDS: SODIUM CHLORIDE 0.9% FLUSH 5 ML FLUSH IV FLUSH SCH ×2 (08:19→20:44)
[2016-06-18] MEDS: ATORVASTATIN 20 MG TAB PO SCH (08:19)
[2016-06-18] MEDS: INSULIN DETEMIR 100 UNITS/ML VIAL SQ SCH (08:19)
[2016-06-18] MEDS: SODIUM CHLORIDE 0.9% FLUSH 5 ML FLUSH IVF SCH (08:19)
[2016-06-18] MEDS: LINEZOLID 600 MG TAB PO SCH ×2 (08:19→23:04)
[2016-06-18] MEDS: DOCUSATE SODIUM 100 MG CAP PO SCH ×2 (08:19→21:00)
[2016-06-18] MEDS ORDERED: HEPARIN SODIUM - IV 10,000 UNITS/10 ML VIAL ONE (08:24)
[2016-06-18] MEDS ORDERED: VANCOMYCIN HCL 1000 MG VIAL ONE ×2 (08:25→08:49)
[2016-06-18] MEDS ORDERED: HEPARIN SODIUM - SQ 10,000 UNITS/ML VIAL ONE (08:25)
[2016-06-18 08:30] LABS: HEMATOCRIT 26.4 % (39.0-51.0); MEAN CELL VOLUME 89.6 FL (80.0-100.0); MEAN CORPUSCULAR HEMOGLOBIN 30.8 PG (27.0-34.0); MEAN CORPUSCULAR HGB CONC 34.4 % (32.0-36.0); PLATELET COUNT 168 TH/MM3 (150-450); RED BLOOD COUNT 2.94 MIL/MM3 (4.50-5.90); RED CELL DISTRIBUTION WIDTH 14.5 % (11.6-17.2); REVIEW FLAG FINAL; WHITE BLOOD COUNT 8.5 TH/MM3 (4.0-11.0)
[2016-06-18 08:39] LABS: INTERNATIONAL NORMALIZED RATIO 1.1 RATIO; PROTHROMBIN TIME - PATIENT 12.1 SEC (9.8-11.6)
[2016-06-18 08:51] LABS: ALT (GPT) 37 U/L (12-78); ANION GAP 7 MEQ/L (5-15); AST (GOT) 24 U/L (15-37); BICARBONATE 28.3 MEQ/L (21.0-32.0); BLOOD UREA NITROGEN 29 MG/DL (7-18); CHLORIDE 103 MEQ/L (98-107); GLOMERULAR FILTRATION RATE 57 ML/MIN (>89); POTASSIUM 4.3 MEQ/L (3.5-5.1); SODIUM (NA) 138 MEQ/L (136-145)
[2016-06-18 08:54] LABS: ALKALINE PHOSPHATASE 88 U/L (45-117); TOTAL BILIRUBIN ADULT 0.3 MG/DL (0.2-1.0)
[2016-06-18] MEDS ORDERED: MIDAZOLAM HCL 5 MG/5 ML VIAL ONE (08:57)
[2016-06-18] MEDS ORDERED: fentaNYL CITRATE 1000 MCG/20 ML VIAL ONE (08:57)
[2016-06-18] MEDS: ARTIFICIAL TEARS OPTH SOLN 15 ML BTL EACH EYE SCH (09:00)
--- NOTE | 2016-06-18 09:09 | HHI.PR ---
Subjective Remarks looking forward to having surgery this am uneventful night Objective Vitals Vital Signs Date Time Temp Pulse Resp B/P Pulse Ox O2 Delivery O2 Flow Rate FiO2 06/18/16 08:17 92 Nasal Cannula 3.00 06/18/16 06:00 69 06/18/16 04:00 97.8 69 13 103/52 96 06/18/16 04:00 69 06/18/16 04:00 93 Nasal Cannula 3.00 06/18/16 02:00 69 06/18/16 00:00 69 06/18/16 00:00 97.9 69 16 134/68 93 06/18/16 00:00 93 Nasal Cannula 3.00 06/17/16 22:00 69 06/17/16 20:14 94 06/17/16 20:00 69 06/17/16 20:00 97.2 69 12 123/58 93 06/17/16 20:00 93 Nasal Cannula 3.00 06/17/16 18:33 69 06/17/16 18:29 20 06/17/16 16:25 22 06/17/16 16:00 95 Nasal Cannula 3.00 06/17/16 16:00 69 06/17/16 16:00 98.7 69 20 114/74 95 06/17/16 14:00 69 06/17/16 12:53 19 06/17/16 12:00 69 06/17/16 12:00 95 Nasal Cannula 3.00 06/17/16 12:00 98.3 69 20 118/70 95 06/17/16 10:00 69 I/O 06/17/16 06/17/16 06/17/16 06/18/16 06/18/16 06/18/16 07:00 15:00 23:00 07:00 15:00 23:00 Intake Total 654 ml 590 ml 445 ml Output Total 1100 ml 1200 ml 1300 ml 850 ml Balance -446 ml -1200 ml -710 ml -405 ml Intake Oral 240 ml 480 ml IV Total 414 ml 110 ml 445 ml Output Urine Total 1100 ml 1200 ml 1300 ml 850 ml # Bowel Movements 0 0 1 0 Result Diagram: 06/18/16 0811 06/18/16 0811 Imaging Last Impressions Abdomen/Pelvis CT 06/17/16 0000 Signed Impressions: Service Date/Time: Friday, June 17, 2016 11:44 - CONCLUSION: 1. Uncomplicated colonic diverticulosis. 2. 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 3. Ventral abdominal wall hernia containing only fat. 4. Enlarged prostate. 5. Small bilateral pleural effusions (right larger than left). 6. Bibasilar alveolar consolidations consistent with compressive atelectasis and/or infiltrates. 7. Cardiomegaly. 8. 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 9. Left renal cysts. 10. Degenerative changes throughout the thoracolumbar spine. South Munoz MD Chest X-Ray 06/13/16 0000 Signed Impressions: Service Date/Time: Monday, June 13, 2016 07:43 - CONCLUSION: Right perihilar infiltrate is a new finding from the prior exam. Trace amount of fluid tracking along the minor fissure. Edgar Jones Jr., MD Lower Extremity Ultrasound 06/10/16 0000 Signed Impressions: Service Date/Time: Friday, June 10, 2016 16:44 - CONCLUSION: Venous mapping study as described. Gregorio Walsh MD Carotid Artery Ultrasound 06/10/16 0000 Signed Impressions: Service Date/Time: Friday, June 10, 2016 16:11 - CONCLUSION: Mild to moderate plaquing bilaterally with less than 50%% diameter stenosis by velocity criteria. Gregorio Walsh MD CT Angiography 06/07/16 0000 Signed Impressions: Service Date/Time: Tuesday, June 07, 2016 15:18 - CONCLUSION: 1. No pulmonary embolus. 2. Very small, bilateral pleural effusions and patchy bilateral airspace opacities. 3. Mildly enlarged mediastinal lymph nodes, nonspecific. 4. Several nodules up to 2 cm in size of the left adrenal gland, incompletely characterized but statistically most likely adenomas. There is a cyst of the left kidney. 5. Coronary artery calcification. Florencio Hamilton MD Objective Remarks awake and alert NAD anicteric lungs clear regular rhythm- paced on telemetry abdomen soft, nontender, good bowel sounds extremities - trace pretibial edema neurologic exam- unremarkable Procedures 06/16- EGD- retained food A/P Problem List: (1) History of ventricular tachycardia ICD Code: Z86.79 Status: Acute (2) Diabetes mellitus ICD Code: E11.9 Status: Acute (3) Anemia ICD Code: D64.9 Status: Acute (4) Hyperparathyroidism ICD Code: E21.3 Status: Acute (5) Peripheral neuropathy ICD Code: G62.9 Status: Acute (6) Peripheral vascular disease ICD Code: I73.9 Status: Acute (7) Leukocytosis ICD Code: D72.829 Status: Acute (8) Chronic kidney disease, stage III (moderate) ICD Code: N18.3 Status: Acute (9) Dyslipidemia ICD Code: E78.5 Status: Acute (10) Hypertension ICD Code: I10 Status: Acute (11) Chronic systolic heart failure ICD Code: I50.22 Status: Acute (12) Coronary artery disease ICD Code: I25.10 Status: Acute (13) Acute respiratory failure with hypoxia ICD Code: J96.01 Status: Acute (14) SIRS (systemic inflammatory response syndrome) ICD Code: R65.10 Status: Acute Assessment and Plan Chronic systolic heart failure EF 25-30% with mild LVH and diffuse hypokinesis Peripheral vascular disease - history of right femoropopliteal with in situ saphenous vein grafting with thrombectomy of popliteal artery/anterior posterior tibial arteries [address] Mayes Coronary artery disease recent PCI/drug-eluting stent to RCA/PDA 04/[address] Kan secondary to inferior STEMI Dual-chamber defibrillator placed 05/[address] Yousif. DDD/70 Hypertension Dyslipidemia Elevated troponin Stent thrombosis RCA Severe CAD three-vessel LAD, circumflex, stented RCA- Cardiology -Dr. Kan ff S/P left heart catheterization 06/09/16-left main 4050 percent occlusion, left circumflex 70% occlusion,thrombosed RCA Continue amiodarone 200 mg by mouth daily for history of V. tach aspirin 81 mg daily for heart stent- Hold Brilinta Bumex 1 mg IV twice a day Kilo 30 mg by mouth daily for dyslipidemia. on Coreg twice a day and Norvasc 2.5 mg by mouth daily for hypertension. CABG today Cardiothoracic surgery Dr. Langley tentatively scheduled for CABG today 06/18 Heparin and Aggrastat infusions, Brilinta discontinued on 06/11 [place] for accurate I's and O's in a critically ill patient if required S/P EGD A- GIB - with melena S/P transfuse total 4 units RBC IV PPI. monitor f Acute hypoxemic respiratory failure On nasal cannula 3 L/m O2 sat 93-94%, however on 06/13/16 noted more sob and requiring increasing O2 on venti mask now. Wean O2 as tolerated Bronchodilator therapy every 6 hours and as needed Initiate incentive spirometry-encourage use Requiring more O2 on 06/13. Will do ABG, CXR, BNP,check labs cbc, bmp, mag Chest x-ray reveals bilateral lower lobe infiltrates. Repeat CXR 06/13/16 Right perihilar infiltrate is a new finding from the prior exam. Trace amount of fluid tracking along the minor fissure. BNP in 500s Continue IV antibiotics for aspiration PNA. Wean off O2. Aspiration precautions discussed with the patient at length, he expressed understanding. Gastroesophageal reflux disease ADA diet. Protonix for GI prophylaxis. On Protonix home. Colace/as needed Senokot for bowel regimen Diabetes mellitus type 2 Hyperglycemia of critical illness On lispro 15 units daily at home. Sliding-scale insulin with Accu-Cheks every 4 hours to maintain euglycemia. Will initiate insulin drip if unable to maintain tight euglycemic control Peripheral neuropathy secondary to diabetes Anxiety Neurontin 300 mg by mouth 3 times a day for neuropathy. Acetaminophen for fever [place]/morphine for pain management, [place] to 10/325mg, Dilaudid added every 4 hours when necessary for pain Change Xanax to ativan 0.5 Q6 hrs prn Chronic kidney disease stage III. Creatinine 1.3 returned to baseline Monitor urine output closely. Accurate I's and O's Possible community-acquired pneumonia History of MRSA treated with Zyvox cefepime/Zithromax. Zyvox 2/2 history of MRSA pneumonia in sputum Blood cultures 2, sputum and UA NGTD Influenza negative FEN: Replace electrolytes as clinically indicated Osteoarthritis- stable Prophylaxis - GI - Protonix - chemical prophylaxis held for procedure Discussed with the nurse, patient Problem Qualifiers (1) Diabetes mellitus: Problem Qualifiers (1) Diabetes mellitus: Qualified Code: E11.8 - Type 2 diabetes mellitus with complication, with long- term current use of insulin (2) Anemia: Qualified Code: D64.9 - Anemia, unspecified type (3) Peripheral neuropathy: Qualified Code: G62.9 - Peripheral polyneuropathy (4) Leukocytosis: Qualified Code: D72.829 - Leukocytosis, unspecified type (5) Coronary artery disease: Qualified Code: I25.10 - Coronary artery disease involving [place] coronary artery of [place] heart, angina presence unspecified Marie Alex MD Jun 18, 2016 09:09
[2016-06-18] MEDS ORDERED: SODIUM CHLOR 0.9% 250 ML INJ 250 ML IV ONE (13:46)
[2016-06-18] MEDS ORDERED: SODIUM CHLORIDE 0.9% IV ONE (13:46)
[2016-06-18] MEDS ORDERED: NORMOSOL R INJ 2,000 ML IV ONE (13:46)
[2016-06-18] MEDS ORDERED: PROTAMINE SULFATE 250 MG/25 ML VIAL IV ONE (13:46)
[2016-06-18] MEDS ORDERED: LACTATED RINGER'S 1000 ML INJ 500 ML IV PRN (14:14)
[2016-06-18] MEDS: DOBUTamine PREMIX DRIP 250 ML IV SCH (14:14)
[2016-06-18] MEDS ORDERED: DEXTROSE 50% IN WATER 50 ML VIAL(D50) IV PUSH PRN (14:15)
[2016-06-18] MEDS ORDERED: DEXMEDETOMIDINE INJ 50 ML IV SCH (14:15)
[2016-06-18] MEDS ORDERED: DOPamine INJ PREMIX 500 ML IV SCH (14:15)
[2016-06-18] MEDS ORDERED: POTASSIUM CHLORIDE 20 MEQ CONTROLLED RELEASE TAB PO PRN ×2 (14:15)
[2016-06-18] MEDS ORDERED: PHENYLEPHRINE INJ 40 MG in DEXTROSE 5% IN WATE 500 ML INJ 496 ML IV SCH ×2 (14:15)
[2016-06-18] MEDS ORDERED: CALCIUM CHLORIDE 10% 1 GRAM/10 ML VIAL IV PRN (14:15)
[2016-06-18] MEDS ORDERED: ACETAMINOPHEN/HYDROcodone 325 MG/5 MG TAB PO PRN (14:15)
[2016-06-18] MEDS ORDERED: ONDANSETRON HCL 4 MG/2 ML VIAL IV PUSH PRN (14:15)
[2016-06-18] MEDS ORDERED: NITROGLYCERIN-DEXTROSE INJ 250 ML IV SCH (14:15)
[2016-06-18] MEDS ORDERED: ACETAMINOPHEN 325 MG TAB PO PRN (14:15)
[2016-06-18] MEDS ORDERED: METOPROLOL TARTRATE 5 MG/5 ML VIAL IV PUSH PRN (14:15)
[2016-06-18] MEDS ORDERED: MEPERIDINE HCL 25 MG/ML VIAL IV PRN (14:15)
[2016-06-18] MEDS ORDERED: Post-op Orders (for Pharmacy) MISC OTHER ONE (14:15)
[2016-06-18] MEDS ORDERED: INSULIN REGULAR (IV INFUSION) 100 UNITS in SODIUM CHLORIDE 0.9% INJ 99 ML IV SCH (14:15)
[2016-06-18] MEDS ORDERED: ACETAMINOPHEN 650 MG SUPP RECTAL PRN (14:15)
[2016-06-18] MEDS ORDERED: CALCIUM CHLORIDE INJ 1 GM in SODIUM CHLORIDE 0.9% INJ 100 ML IV PRN (14:15)
[2016-06-18] MEDS ORDERED: CLEVIDIPINE INJ 50 ML IV SCH (14:15)
[2016-06-18] MEDS ORDERED: MORPHINE SULFATE 4 MG/ML INJ IV PRN (14:15)
[2016-06-18] MEDS ORDERED: MAGNESIUM SULFATE INJ 2 GM in SODIUM CHLORIDE 0.9% INJ 100 ML IV PRN ×4 (14:15)
[2016-06-18] MEDS ORDERED: POTASSIUM CHLOR 20 MEQ PREMIX 100 ML IV PRN ×3 (14:15)
[2016-06-18] MEDS ORDERED: EPINEPHrine (1:1000) INJ 4 MG in DEXTROSE 5% IN WATER INJ 246 ML IV SCH ×2 (14:15)
[2016-06-18] MEDS ORDERED: hydrALAZINE HCL 20 MG/ML VIAL IV PRN (14:15)
--- NOTE | 2016-06-18 14:22 | PD.OP ---
cc: Asher Meade MD; Maura Langley MD Operative Report Date of Surgery: Jun 18, 2016 Preoperative Diagnosis: Postoperative Diagnosis: Procedure: 1. Urgent Off-pump Coronary Artery Bypass Grafting x 3 with left internal mammary artery (WANG) to left anterior descending (LAD), reverse saphenous vein graft to OM1, reverse saphenous vein graft to the RPDA 2. Left Leg Endoscopic Vein [place] 3. Intraoperative Vein Mapping. . Surgeon: Maura Langley Lightout Examiner(s): Molly Leonard Operation and Findings: PREPROCEDURE DIAGNOSES 1. Severe Multi Vessel Coronary Artery Disease 2. In-stent Restenosis 3. Acute Myocardial Infarction 4. CHF 5. Severe Left Ventricular Dysfunction 6. Diabetes mellitus 7. GI Bleed 8. Chronic Illness POSTPROCEDURE DIAGNOSES Same SURGICAL PROCEDURE 1. Urgent Off-pump Coronary Artery Bypass Grafting x 3 with left internal mammary artery (WANG) to left anterior descending (LAD), reverse saphenous vein graft to OM1, reverse saphenous vein graft to the RPDA 2. Left Leg Endoscopic Vein [place] 3. Intraoperative Vein Mapping. SURGEON Maura Langley MD INVESTMENT ANALYST NOE Acuña ANESTHESIA General endotracheal [employer]LOBAL MARKETING SPECIALIST ALEX Jo MD PREPARATION ChloraPrep. COUNTS Needle, sponge, and instrument counts were correct. DRAINS Two 32-[place] mediastinal tubes. COMPLICATIONS None. INDICATIONS FOR PROCEDURE The patient is a 65-year-old presenting with chest pain and AMI. Patient was noted to have multi-vessel coronary artery disease and is being brought to the operating room for surgical revascularization therapy. PROCEDURE Patient was brought to the operating room and placed supine on the OR table. Following the induction of adequate general endotracheal anesthesia and placement of appropriate monitoring devices, intraoperative vein mapping was performed which revealed suitable-caliber conduit in the left lower extremity. The patient was then prepped and draped in standard sterile fashion. Next, 2500 units of intravenous heparin was given. The left greater saphenous vein was harvested endoscopically. This appeared to be a good-caliber conduit. Simultaneously, a median sternotomy was performed and the left internal mammary artery dissected free off the posterior sternal table. The patient was systemically heparinized and anticoagulation monitored by serial ACT measurements. The internal mammary artery had good pulsatile flow in it and was a decent-caliber conduit. The pericardium was then divided in the midline, the cradle created and targets analyzed. At this point, all anastomoses were performed in a beating-heart fashion using the [place] stabilizing system. The left internal mammary artery was anastomosed to the distal LAD in an end-to- side fashion using 7-0 Prolene. Segment of saphenous vein graft was then anastomosed to the OM1 in an end-to-side fashion using 7-0 Prolene. The final segment was anastomosed to the RCA in an end-to-side fashion using 7-0 Prolene. The proximal anastomoses were then constructed to the ascending aorta in a running manner using 6-0 Prolene. All anastomotic sites were inspected and appeared to be hemostatic and patent. Protamine solution was given. Strict hemostasis was assured. The closure was undertaken. 2 chest tubes were placed. The pericardium was reapproximated in the midline. The sternum was approximated using sternal wires. The muscular and fascial layer were then closed in 3 layers. The endoscopic vein harvest site was closed in 2 layers. The patient tolerated the procedure well and was transferred to CVICU in stable condition. Maura Langley MD Jun 18, 2016 14:22
[2016-06-18 14:48] LABS: APTT (PATIENT) 32.2 SEC (24.3-30.1); INTERNATIONAL NORMALIZED RATIO 1.5 RATIO; PROTHROMBIN TIME - PATIENT 16.7 SEC (9.8-11.6)
--- NOTE | 2016-06-18 16:02 | RADRPT ---
EXAM DATE/TIME: 06/18/2016 15:04 [facility] COMPARISON: CHEST SINGLE AP, June 13, 2016, 7:43. INDICATIONS : Post CABG MEDICAL HISTORY : None. SURGICAL HISTORY : Pacemaker. CABG. ENCOUNTER: Subsequent ACUITY: 2 days PAIN SCORE: Non-responsive. LOCATION: Bilateral chest FINDINGS: A single view of the chest demonstrates interval postsurgical changes with intact median sternotomy w ires. Left-sided thoracostomy tube without pneumothorax. There is developing left basilar consolidati on/effusion with improving aeration in the right lung base. Heart size is prominent. Endotracheal tub e is appropriately positioned above the js. Mediastinal drain and right IJ central venous cathete r with the tip projecting over the central venous system. Left subclavian bipolar pacer is radiograph ically intact. Osseous structures are intact. CONCLUSION: 1. Postsurgical changes characteristic of a reported history of CABG. 2. Left-sided thoracostomy tube without pneumothorax. 3. Improving aeration in the right lung base with developing left basilar consolidation/effusion. 4. Endotracheal tube in appropriate position above the js. Right IJ central venous catheter with the tip projecting over the central venous system. Right para-midline mediastinal drain. Amadeo Lassiter MD on June 18, 2016 at 15:58 Board Certified Radiologist. This report was verified electronically.
[2016-06-18] MEDS: ACETAMINOPHEN 1000 MG/100 ML VIAL IV SCH ×2 (16:12→20:43)
[2016-06-18] MEDS: ALBUMIN HUMAN 5% 12.5 GM/250 ML BOTTLE IV PRN ×3 (16:20→23:15)
[2016-06-18] MEDS ORDERED: RESP: ALBUTEROL 2.5 MG/IPRATROPIUM 0.5 MG NEB (PRN) NEB (17:00)
[2016-06-18] MEDS ORDERED: RESP: RACEPINEPHRINE 2.25% 0.5 ML NEB NEB PRN (17:00)
[2016-06-18] MEDS: ceFAZolin 2 GM PREMIX 50 ML IV SCH (17:39)
[2016-06-18] MEDS: REMOVE OLD PATCH TD SCH (21:00)
[2016-06-18] MEDS: ACETAMINOPHEN/HYDROcodone 325 MG/5 MG TAB PO PRN (21:33)
[2016-06-18] MEDS: PANTOPRAZOLE INJ 80 MG in SODIUM CHLORIDE 0.9% INJ 100 ML IV SCH (22:17)
[2016-06-18] MEDS: RESP: ALBUTEROL 2.5 MG/IPRATROPIUM 0.5 MG NEB (SCH) NEB (23:05)
[2016-06-19] VITALS (18 sets, daily range): BP systolic 83–128; BP diastolic 39–57; PULSE 69–70; RESP 16–20; TEMP 97.3–98.3; O2SAT 92–99
[2016-06-19] MEDS: ceFAZolin 2 GM PREMIX 50 ML IV SCH ×3 (01:59→17:41)
[2016-06-19] MEDS: CEFEPIME INJ 2,000 MG in SODIUM CHLORIDE 0.9% INJ 100 ML IV SCH (02:49)
[2016-06-19] MEDS: AZITHROMYCIN INJ 500 MG in SODIUM CHLOR 0.9% 250 ML INJ 250 ML IV SCH (02:50)
[2016-06-19] MEDS: ACETAMINOPHEN 1000 MG/100 ML VIAL IV SCH ×2 (02:59→08:30)
[2016-06-19] MEDS: CHLORHEXIDINE GLUCONATE 2 % 1 PACK (2 CLOTHS) TOP SCH (03:29)
[2016-06-19] MEDS: RESP: ALBUTEROL 2.5 MG/IPRATROPIUM 0.5 MG NEB (SCH) NEB ×4 (03:59→19:28)
[2016-06-19 05:38] LABS: HEMATOCRIT 23.3 % (39.0-51.0); MEAN CELL VOLUME 87.3 FL (80.0-100.0); MEAN CORPUSCULAR HEMOGLOBIN 29.7 PG (27.0-34.0); PLATELET COUNT 111 TH/MM3 (150-450); RED BLOOD COUNT 2.67 MIL/MM3 (4.50-5.90); RED CELL DISTRIBUTION WIDTH 16.8 % (11.6-17.2); REVIEW FLAG FINAL; WHITE BLOOD COUNT 12.7 TH/MM3 (4.0-11.0)
[2016-06-19 05:45] LABS: BICARBONATE 21.6 MEQ/L (21.0-32.0); MAGNESIUM 2.2 MG/DL (1.5-2.5); POTASSIUM 4.1 MEQ/L (3.5-5.1)
[2016-06-19] MEDS: ACETAMINOPHEN/HYDROcodone 325 MG/5 MG TAB PO PRN ×3 (05:57→23:24)
[2016-06-19] MEDS ORDERED: PANTOPRAZOLE SOD 40 MG DELAYED RELEASE TAB PO SCH (06:00)
[2016-06-19 06:01] LABS: APTT (PATIENT) 31.5 SEC (24.3-30.1)
--- NOTE | 2016-06-19 06:10 | RADRPT ---
EXAM DATE/TIME: 06/19/2016 05:07 [place] COMPARISON: CHEST SINGLE AP, June 18, 2016, 15:04. INDICATIONS : Shortness of breath, possible pulmonary disease. MEDICAL HISTORY : None. SURGICAL HISTORY : Pacemaker. CABG. ENCOUNTER: Subsequent ACUITY: 3 days PAIN SCORE: Non-responsive. LOCATION: Bilateral chest FINDINGS: Left sided chest tube, right jugular line, mediastinal tube and sternotomy wires are noted. Pacer dev ice again seen. A small left effusion is suspected. Left lower lobe infiltrate.. CONCLUSION: No significant change has occurred. Kervin Jacob MD on June 19, 2016 at 6:08 Board Certified Radiologist. This report was verified electronically.
[2016-06-19] MEDS: DOBUTamine PREMIX DRIP 250 ML IV SCH (07:11)
[2016-06-19] MEDS: PANTOPRAZOLE INJ 80 MG in SODIUM CHLORIDE 0.9% INJ 100 ML IV SCH ×2 (07:48→19:22)
[2016-06-19] MEDS: CLOPIDOGREL 75 MG TAB PO SCH (08:34)
[2016-06-19] MEDS: NICOTINE 14 MG/24 HR PATCH TD SCH (08:34)
[2016-06-19] MEDS: ATORVASTATIN 20 MG TAB PO SCH (08:35)
[2016-06-19] MEDS: LINEZOLID 600 MG TAB PO SCH (08:35)
[2016-06-19] MEDS: AMIODARONE 200 MG TAB PO SCH ×2 (08:35→21:05)
[2016-06-19] MEDS: GABAPENTIN 300 MG CAP PO SCH ×3 (08:35→17:39)
[2016-06-19] MEDS: ASPIRIN 81 MG CHEW TAB PO SCH (08:36)
[2016-06-19] MEDS: amLODIPine BESYLATE 5 MG TAB PO SCH (08:51)
[2016-06-19] MEDS: DOCUSATE SODIUM 100 MG CAP PO SCH ×2 (08:51→21:00)
[2016-06-19] MEDS: CARVEDILOL 6.25 MG TAB PO SCH (08:51)
[2016-06-19] MEDS: SODIUM CHLORIDE 0.9% FLUSH 5 ML FLUSH IV FLUSH SCH ×2 (08:51→21:00)
[2016-06-19] MEDS: ARTIFICIAL TEARS OPTH SOLN 15 ML BTL EACH EYE SCH ×3 (09:00→17:42)
[2016-06-19] MEDS: BUMETANIDE INJ 1 MG/4 ML VIAL IV PUSH SCH (09:12)
[2016-06-19] MEDS ORDERED: SOD PHOSPHATE/SOD BIPHOSPHATE (ADULT) ENEMA 133ML RECTAL PRN (09:15)
[2016-06-19] MEDS ORDERED: DEXTROSE 50% IN WATER 50 ML VIAL(D50) IV PRN (09:15)
[2016-06-19] MEDS ORDERED: GLUCAGON 1 MG/ML VIAL OTHER PRN (09:15)
[2016-06-19] MEDS ORDERED: BISACODYL 10 MG SUPP RECTAL PRN (09:15)
[2016-06-19] MEDS: LORazepam 0.5 MG TAB PO PRN (09:23)
[2016-06-19] MEDS: MORPHINE SULFATE 4 MG/ML INJ IV PRN ×2 (09:27→19:22)
[2016-06-19] MEDS ORDERED: MORPHINE SULFATE 4 MG/ML INJ IV PRN (09:30)
[2016-06-19] MEDS ORDERED: AMLO5TAB2 PO (09:52)
[2016-06-19] MEDS ORDERED: ASPI81TA11 PO (09:53)
--- NOTE | 2016-06-19 09:55 | PD.CAR.PN ---
CVT Progress Note CVT: POD #: 1 Subjective/Hospital Course: 65-year-old male. Date of admission 06/07/2016. Past medical history includes recent heart catheterization 04/30/[address] Kan secondary to an inferior STEMI with PCI/MERE placed placed to the RCA and PDA. Left main was 30%. LAD was 40% proximal/80% diagonal. Left circumflex was 30%. EF was 20/5/30 percent. Im [place] devices placed as well. Patient had prolonged intubation During this hospitalization developed V. tach as well and a dual-chamber defibrillator was placed by Dr. Yousif /DDD 70 on 05/27. presented this admission , admitted this admission with NSTEMI, resp failure with hypoxia , underwent cardiac cath by Dr Kan, MAGALIE to stent thrombosis of RCA 06/09 pt was on Brilinta at home PMH: CAD, with 2 prior stents by the hypertension, diabetes,'s chronic systolic heart failure EF 20-25% , , peripheral vascular disease with a right femoropopliteal in situ saphenous vein revision [address] Mayes with thrombolytic colectomy to the popliteal artery and anterior and posterior tibial arteries, 06/13 NO PAIN DURING THE NIGHT OOB with assistance on aggrastat and heparin 06/16 pt developed GI Bleed with Heme + stools HGB 7.0/ for 2 units PRBC GI consult, for EGD today on protonix gtt heparin and Aggrastat dc rescheduled for surgery on 06/17 EGD completed , gastroparesis CT abd / pelvis pending HGB stable , spoke with GI Dr Lantigua will need colonoscopy as outpt hold on restarting heparin and Aggrastat for now although GI was ok with restarting anticoagulation keep scheduled for surgery in am 06/18 1. Urgent Off-pump Coronary Artery Bypass Grafting x 3 with left internal mammary artery (WANG) to left anterior descending (LAD), reverse saphenous vein graft to OM1, reverse saphenous vein graft to the RPDA 2. Left Leg Endoscopic Vein [place] 2200cc crystalloid, 2 PRBC 750cc cell saver , EBL 1500cc had large bloody BM 06/19 extubated after surgery, on nasal cannula wants to sleep, not get OOB discussed importance if pulm toileting and getting OOB no pressors, HGB 7.[address] Langley / recheck HGB this afternoon remains on protonix gtt will transfer to stepdown . Objective: GENERAL: SKIN: Warm and dry./ prevena dressing to chest , anais wrap left leg HEAD: Normocephalic. EYES: No scleral icterus. No injection or drainage. NECK: Supple, trachea midline. No JVD or lymphadenopathy. CARDIOVASCULAR: Regular rate and rhythm without murmurs, gallops, or rubs. RESPIRATORY: Breath sounds equal bilaterally. No accessory muscle use. diminished in bases GASTROINTESTINAL: Abdomen soft, non-tender, nondistended. MUSCULOSKELETAL: No cyanosis, or edema. BACK: Nontender without obvious deformity. No CVA tenderness. Vital Signs Date Time Temp Pulse Resp B/P Pulse Ox O2 Delivery O2 Flow Rate FiO2 06/19/16 08:56 95 Nasal Cannula 4.00 06/19/16 08:00 92 Nasal Cannula 5.00 06/19/16 08:00 98.3 70 16 98/50 92 06/19/16 07:00 70 06/19/16 04:30 20 06/19/16 04:30 20 06/19/16 04:00 93 Nasal Cannula 4.00 06/19/16 04:00 98.3 69 20 88/45 93 95/44 06/19/16 03:45 69 06/19/16 00:00 94 Nasal Cannula 4.00 06/19/16 00:00 97.3 69 20 83/47 94 83/39 06/19/16 00:00 69 06/18/16 22:30 20 06/18/16 21:23 20 06/18/16 20:00 95 Nasal Cannula 4.00 06/18/16 20:00 97.7 69 20 95/54 95 99/44 06/18/16 19:20 69 06/18/16 18:05 94 Nasal Cannula 4.00 06/18/16 18:05 94 Nasal Cannula 4 06/18/16 18:05 93 Nasal Cannula 4.00 06/18/16 17:15 50 06/18/16 16:00 96 Mechanical Ventilator 60 06/18/16 16:00 60 06/18/16 16:00 98.1 70 12 102/66 96 90/55 06/18/16 15:01 97 60 06/18/16 15:00 94 Mechanical Ventilator 60 06/18/16 15:00 69 06/18/16 15:00 98.1 69 12 76/53 94 98/53 06/18/16 14:00 69 Labs: Laboratory Tests Test 06/19/16 05:00 White Blood Count 12.7 TH/MM3 (4.0-11.0) Red Blood Count 2.67 MIL/MM3 (4.50-5.90) Hemoglobin 7.9 GM/DL (13.0-17.0) Hematocrit 23.3 % (39.0-51.0) Mean Corpuscular Volume 87.3 FL (80.0-100.0) Mean Corpuscular Hemoglobin 29.7 PG (27.0-34.0) Mean Corpuscular Hemoglobin 34.0 % Concent (32.0-36.0) Red Cell Distribution Width 16.8 % (11.6-17.2) Platelet Count 111 TH/MM3 (150-450) Mean Platelet Volume 7.9 FL (7.0-11.0) Activated Partial 31.5 SEC Thromboplast Time (24.3-30.1) Sodium Level 142 MEQ/L (136-145) Potassium Level 4.1 MEQ/L (3.5-5.1) Chloride Level 108 MEQ/L (98-107) Carbon Dioxide Level 21.6 MEQ/L (21.0-32.0) Anion Gap 12 MEQ/L (5-15) Blood Urea Nitrogen 31 MG/DL (7-18) Creatinine 1.61 MG/DL (0.60-1.30) Estimat Glomerular Filtration 43 ML/MIN (>89) Rate Random Glucose 79 MG/DL (74-106) Calcium Level 8.0 MG/DL (8.5-10.1) Magnesium Level 2.2 MG/DL (1.5-2.5) Result Diagram: 06/19/16 0500 06/19/16 0500 Telemetry: NSR (1) NSTEMI (non-ST elevated myocardial infarction) (2) Coronary artery disease Plan: statin BB , ASA, statin OOB ambulate pain control pulm toileting (3) S/P CABG x 3 Plan: on ASA, start BB in am , statin (4) Acute respiratory failure with hypoxia Plan: resolved (5) SIRS (systemic inflammatory response syndrome) Plan: improved, on antibiotics / consult ID for input on antibiotics (6) History of ventricular tachycardia (7) Chronic kidney disease, stage III (moderate) Plan: monitor indices creatinine 1.61 (8) Chronic systolic heart failure (9) Dyslipidemia Plan: statin (10) Hypertension (11) Peripheral vascular disease (12) Peripheral neuropathy (13) Pressure ulcer of left heel, unstageable Plan: podiatry following (14) Pressure ulcer of right heel, unstageable (15) Blood loss anemia Plan: s/p PRBC 06/18 monitor (16) Diabetes mellitus Plan: diabetic diet / insulin sliding scale Problem Qualifiers (1) Coronary artery disease: Qualified Code: I25.10 - Coronary artery disease involving [place] coronary artery of [place] heart, angina presence unspecified (2) Peripheral neuropathy: Qualified Code: G62.9 - Peripheral polyneuropathy (3) Diabetes mellitus: Qualified Code: E11.8 - Type 2 diabetes mellitus with complication, with long- term current use of insulin Nicole Lazar Jun 19, 2016 09:55
[2016-06-19] MEDS: MAGNESIUM HYDROXIDE SUSP 30 ML CUP PO SCH (10:00)
[2016-06-19] MEDS ORDERED: LYRI75CA PO (10:05)
[2016-06-19] MEDS ORDERED: ATOR1TAB18 PO (10:05)
[2016-06-19] MEDS ORDERED: OXYC-392 PO (10:05)
[2016-06-19] MEDS ORDERED: CARV25TA PO (10:05)
[2016-06-19] MEDS ORDERED: NOVORP2 SQ (10:05)
[2016-06-19] MEDS ORDERED: POTA-163 PO (10:05)
[2016-06-19] MEDS ORDERED: LANTUS2P SQ (10:05)
[2016-06-19] MEDS ORDERED: BUME1TAB PO (10:05)
[2016-06-19] MEDS ORDERED: BRIL90TA PO (10:05)
[2016-06-19] MEDS ORDERED: OMEP20TA PO (10:05)
[2016-06-19] MEDS: INSULIN ASPART SUPPLEMENTAL SCALE SQ SCH ×4 (10:43→21:07)
--- NOTE | 2016-06-19 13:06 | RSPPFT ---
DATE OF PROCEDURE: 06/11/16 COMMENTS: Spirometry shows FVC of 1.8 at 42% of predicted, FEV1 of 1.1 at 32%, FEV1/FVC ratio is decreased. Flow is decreased at FEF 25-75. Flow volume loop indicates an obstructive pattern. IMPRESSION: 1. Severe obstructive lung disease. 2. Post-bronchodilator study was not done.
[2016-06-19] MEDS ORDERED: CLEVIDIPINE INJ 50 ML ONE (14:21)
--- NOTE | 2016-06-19 14:36 | EKG ---
Date Performed: 06/19/2016 Time Performed: 04:51:42 PTAGE: 65 years EKG: A-V sequential pacemaker Pacemaker rhythm - no further analysis Abnormal ECG Compared to pr ior tracing no significant change PREVIOUS TRACING : 06/07/2016 22.27 DOCTOR: Elio Judge Interpretating Date/Time 06/19/2016 14:35:44
--- NOTE | 2016-06-19 16:13 | HHI.PR ---
Subjective Remarks up in chair comfortable Objective Vitals Vital Signs Date Time Temp Pulse Resp B/P Pulse Ox O2 Delivery O2 Flow Rate FiO2 06/19/16 12:02 99 Nasal Cannula 4.00 06/19/16 12:00 98.1 69 16 97/52 99 06/19/16 11:00 69 06/19/16 08:56 95 Nasal Cannula 4.00 06/19/16 08:00 92 Nasal Cannula 5.00 06/19/16 08:00 98.3 70 16 98/50 92 06/19/16 07:00 70 06/19/16 04:30 20 06/19/16 04:30 20 06/19/16 04:00 93 Nasal Cannula 4.00 06/19/16 04:00 98.3 69 20 88/45 93 95/44 06/19/16 03:45 69 06/19/16 00:00 94 Nasal Cannula 4.00 06/19/16 00:00 97.3 69 20 83/47 94 83/39 06/19/16 00:00 69 06/18/16 22:30 20 06/18/16 21:23 20 06/18/16 20:00 95 Nasal Cannula 4.00 06/18/16 20:00 97.7 69 20 95/54 95 99/44 06/18/16 19:20 69 06/18/16 18:05 94 Nasal Cannula 4.00 06/18/16 18:05 94 Nasal Cannula 4 06/18/16 18:05 93 Nasal Cannula 4.00 06/18/16 17:15 50 I/O 06/18/16 06/18/16 06/18/16 06/19/16 06/19/16 06/19/16 07:00 15:00 23:00 07:00 15:00 23:00 Intake Total 445 ml 2719 ml 1662 ml Output Total 850 ml 440 ml 825 ml Balance -405 ml 2279 ml 837 ml Intake Oral 120 ml IV Total 445 ml 2719 ml 1542 ml Output Urine Total 850 ml 250 ml 405 ml Gastric Drainage Total 10 ml Chest Tube Drainage Total 180 ml 420 ml # Bowel Movements 0 0 0 Result Diagram: 06/19/16 0500 06/19/16 0500 Imaging Last Impressions Chest X-Ray 06/19/16 0500 Signed Impressions: Service Date/Time: May 05:07 - CONCLUSION: No significant change has occurred. Kervin Jacob MD Abdomen/Pelvis CT 06/17/16 0000 Signed Impressions: Service Date/Time: Friday, June 17, 2016 11:44 - CONCLUSION: 1. Uncomplicated colonic diverticulosis. 2. 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 3. Ventral abdominal wall hernia containing only fat. 4. Enlarged prostate. 5. Small bilateral pleural effusions (right larger than left). 6. Bibasilar alveolar consolidations consistent with compressive atelectasis and/or infiltrates. 7. Cardiomegaly. 8. 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 9. Left renal cysts. 10. Degenerative changes throughout the thoracolumbar spine. [place] Munoz MD Lower Extremity Ultrasound 06/10/16 0000 Signed Impressions: Service Date/Time: Friday, June 10, 2016 16:44 - CONCLUSION: Venous mapping study as described. Gregorio Walsh MD Carotid Artery Ultrasound 06/10/16 0000 Signed Impressions: Service Date/Time: Friday, June 10, 2016 16:11 - CONCLUSION: Mild to moderate plaquing bilaterally with less than 50%% diameter stenosis by velocity criteria. Gregorio Walsh MD CT Angiography 06/07/16 0000 Signed Impressions: Service Date/Time: Tuesday, June 07, 2016 15:18 - CONCLUSION: 1. No pulmonary embolus. 2. Very small, bilateral pleural effusions and patchy bilateral airspace opacities. 3. Mildly enlarged mediastinal lymph nodes, nonspecific. 4. Several nodules up to 2 cm in size of the left adrenal gland, incompletely characterized but statistically most likely adenomas. There is a cyst of the left kidney. 5. Coronary artery calcification. Florencio Hamilton MD Objective Remarks awake and alert NAD anicteric lungs clear, chest tubes in place regular rhythm- paced on telemetry abdomen soft, nontender, good bowel sounds extremities -no edema banda in place neurologic exam- unremarkable Procedures 06/16- EGD- retained food 06/18- CABG A/P Problem List: (1) History of ventricular tachycardia ICD Code: Z86.79 Status: Acute (2) Diabetes mellitus ICD Code: E11.9 Status: Acute (3) Anemia ICD Code: D64.9 Status: Acute (4) Hyperparathyroidism ICD Code: E21.3 Status: Acute (5) Peripheral neuropathy ICD Code: G62.9 Status: Acute (6) Peripheral vascular disease ICD Code: I73.9 Status: Acute (7) Leukocytosis ICD Code: D72.829 Status: Acute (8) Chronic kidney disease, stage III (moderate) ICD Code: N18.3 Status: Acute (9) Dyslipidemia ICD Code: E78.5 Status: Acute (10) Hypertension ICD Code: I10 Status: Acute (11) Chronic systolic heart failure ICD Code: I50.22 Status: Acute (12) Coronary artery disease ICD Code: I25.10 Status: Acute (13) Acute respiratory failure with hypoxia ICD Code: J96.01 Status: Acute (14) SIRS (systemic inflammatory response syndrome) ICD Code: R65.10 Status: Acute Assessment and Plan Chronic systolic heart failure EF 25-30% with mild LVH and diffuse hypokinesis Peripheral vascular disease - history of right femoropopliteal with in situ saphenous vein grafting with thrombectomy of popliteal artery/anterior posterior tibial arteries [address] Mayes Coronary artery disease recent PCI/drug-eluting stent to RCA/PDA 04/[address] Kan secondary to inferior STEMI Dual-chamber defibrillator placed 05/[address] Yousif. DDD/70 Hypertension Dyslipidemia Elevated troponin Stent thrombosis RCA Severe CAD three-vessel LAD, circumflex, stented RCA- Post op anemia Cardiology -Dr. Kan ff S/P left heart catheterization 06/09/16-left main 4050 percent occlusion, left circumflex 70% occlusion,thrombosed RCA Continue amiodarone 200 mg by mouth daily for history of V. tach aspirin 81 mg daily for heart stent- Hold Brilinta Bumex 1 mg IV twice a day Kilo 30 mg by mouth daily for dyslipidemia. on Coreg twice a day and Norvasc 2.5 mg by mouth daily for hypertension. S/p 2 units RBC 06/18. Recheck in am S/P CABG 06/18. Vascular surgery ff. Dr. Langley ff S/P EGD A- GIB - with melena S/P transfuse total 4 units RBC IV PPI. monitor f Acute hypoxemic respiratory failure On nasal cannula 3 L/m O2 sat 93-94%, however on 06/13/16 noted more sob and requiring increasing O2 on venti mask now. Wean O2 as tolerated Bronchodilator therapy every 6 hours and as needed Initiate incentive spirometry-encourage use Requiring more O2 on 06/13. Will do ABG, CXR, BNP,check labs cbc, bmp, mag Chest x-ray reveals bilateral lower lobe infiltrates. Repeat CXR 06/13/16 Right perihilar infiltrate is a new finding from the prior exam. Trace amount of fluid tracking along the minor fissure. BNP in 500s Continue IV antibiotics for aspiration PNA. Wean off O2. Aspiration precautions discussed with the patient at length, he expressed understanding. Gastroesophageal reflux disease ADA diet. Protonix for GI prophylaxis. Colace/as needed Senokot for bowel regimen Diabetes mellitus type 2 On lispro 15 units daily at home. Sliding-scale insulin with Accu-Cheks every 4 hours to maintain euglycemia. Will initiate insulin drip if unable to maintain tight euglycemic control Peripheral neuropathy secondary to diabetes Anxiety Neurontin 300 mg by mouth 3 times a day for neuropathy. Acetaminophen for fever [place]/morphine for pain management, [place] to 10/325mg, Dilaudid added every 4 hours when necessary for pain Change Xanax to ativan 0.5 Q6 hrs prn Chronic kidney disease stage III. Creatinine 1.3 returned to baseline Monitor urine output closely. Accurate I's and O's Possible community-acquired pneumonia History of MRSA treated with Zyvox cefepime/Zithromax. Zyvox 2/2 history of MRSA pneumonia in sputum Blood cultures 2, sputum and UA NGTD Influenza negative FEN: Replace electrolytes as clinically indicated Osteoarthritis- stable Prophylaxis - GI - Protonix - chemical prophylaxis held for procedure Problem Qualifiers (1) Diabetes mellitus: Qualified Code: E11.8 - Type 2 diabetes mellitus with complication, with long- term current use of insulin (2) Anemia: Qualified Code: D64.9 - Anemia, unspecified type (3) Peripheral neuropathy: Qualified Code: G62.9 - Peripheral polyneuropathy (4) Leukocytosis: Qualified Code: D72.829 - Leukocytosis, unspecified type (5) Coronary artery disease: Qualified Code: I25.10 - Coronary artery disease involving [place] coronary artery of [place] heart, angina presence unspecified Marie Alex MD Jun 19, 2016 16:12
--- NOTE | 2016-06-19 17:34 | MB ---
cc: LEEANNA IRIZARRY MD DATE OF CONSULTATION 06/20/2015 REQUESTING PHYSICIAN MAXIME Hernandez/Maura Langley MD HISTORY OF PRESENT ILLNESS This is a 65-year-old white male who was admitted to the hospital on June 07, 2016. The patient required intubation for hypoxia. He came with shortness of breath and was having sweating of s severe nature. The patient had a history of s myocardial infarction about a month prior. Eventually ended having workup and was found to have coronary artery disease. The patient was felt to have possible community acquired pneumonia and he was treated with cefepime and Zithromax and he was also being treated with Zyvox for history of the MRSA in the sputum. A chest x-ray reviewed bibasilar infiltrate at the mid and lower lung zones bilaterally on 06/07 and he continues to have infiltrates in the lung and continued to receive his antibiotics. He was taken to surgery on 06/18 and underwent coronary artery bypass graft x3. He is currently postop. He has no fevers, but he has chest soreness from the area of surgery in the chest. His white blood cell count is mildly elevated at 12.7. The reason for this consultation is because of prior pneumonia treatment with multiple antibiotics and to determine the need for IV antibiotics. Chest x-ray today shows no significant change and a chest x-ray from June 18 showed improving aeration in the right lung base with developing left base consolidation/effusion. The patient is not producing any sputum. PAST MEDICAL HISTORY 1. Coronary artery disease, 2. Hypertension, 3. Diabetes mellitus, 4. Congestive heart failure 5. Myocardial infarction 6. Ventricular tachycardia, 7. Chronic kidney disease, 8. Peripheral vascular disease, 9. Anemia 10. Hyperparathyroidism 11. Pacemaker placement 12. Right fem-pop revision ALLERGIES NO KNOWN DRUG ALLERGIES. MEDICATIONS 1. Cephazolin 2. Propofol 3. Xanax 4. Versed 5. Multivitamin 6. Insulin 7. MiraLax 8. Coreg. 9. Colace. 10. Senokot 11. Lipitor 12. Aspirin 13. Plavix. 14. Cordarone. 15. Pantoprazole. SOCIAL HISTORY Positive tobacco use. The patient smoked 3/4 packs of tobacco a day. No illicit drug use. Occasional alcohol. FAMILY HISTORY Noncontributory. REVIEW OF SYSTEMS Negative on 10-point review except for chest soreness. PHYSICAL EXAMINATION GENERAL: This is a well-developed male who is somewhat somnolent. He is in no acute distress. He is oriented x3. VITAL SIGNS: Temperature 98.1, BP 97/52, respirations 16, heart rate 69. HEENT: Head is atraumatic. Extraocular movements grossly intact, pupils reactive to light. No icterus. Oropharynx moist mucosa without lesions. NECK: Supple without adenopathy. LUNGS: Very slight rhonchi at the bases but otherwise clear. HEART: Regular rate and rhythm without murmurs or rubs or gallops. CHEST: Postop and has no erythema. There is a sponge overlying the sternum. ABDOMEN: Bowel sounds present but diminished, soft, nontender. RECTAL: Not performed. EXTREMITIES: No clubbing, cyanosis or edema. SKIN: No rash. NEUROLOGIC: Nonfocal. LABORATORY DATA WBC 12.7, platelet count 111, hemoglobin 7.9, BUN 31, creatinine 1.61, estimated GFR 43, sodium 142. Liver function tests normal. IMPRESSION 1. Coronary artery disease status post coronary artery bypass graft surgery 2. Pneumonia indicated by infiltrate in the lung which has been treated with IV antibiotics and appears stable. 3. Mild elevation in white blood cell count. RECOMMENDATIONS 1. Continue the cephazolin as ordered for the surgical procedure and then discontinue per protocol. 2. Hold off on additional antibiotics since I think the patient has received adequate antibiotics for pneumonia. I will monitor the patient's progress and will make further recommendation on followup if necessary. He is noted to have severe obstructive lung disease and would be at risk for development of pneumonia post op. Thank you for this consultation. Leeanna Irizarry MD FD/ /1:28 PM /4:48 PM [facility]
[2016-06-19] MEDS: SENNOSIDES 8.6 MG TAB PO SCH (21:00)
[2016-06-19] MEDS: REMOVE OLD PATCH TD SCH (21:00)
[2016-06-19] MEDS: ATORVASTATIN 40 MG TAB PO SCH (21:05)
[2016-06-20] VITALS (35 sets, daily range): BP systolic 90–124; BP diastolic 41–68; PULSE 69–83; RESP 16–20; TEMP 97.4–98.6; O2SAT 91–97
[2016-06-20] MEDS: INSULIN ASPART SUPPLEMENTAL SCALE SQ SCH ×5 (02:00→21:37)
[2016-06-20] MEDS: ceFAZolin 2 GM PREMIX 50 ML IV SCH (02:12)
[2016-06-20] MEDS: MORPHINE SULFATE 4 MG/ML INJ IV PRN ×3 (02:18→15:42)
[2016-06-20] MEDS: ACETAMINOPHEN/HYDROcodone 325 MG/5 MG TAB PO PRN ×3 (05:59→21:37)
[2016-06-20] MEDS: PANTOPRAZOLE INJ 80 MG in SODIUM CHLORIDE 0.9% INJ 100 ML IV SCH (06:01)
[2016-06-20 06:44] LABS: AUTOMATED NEUTROPHIL # 10.7 TH/MM3 (1.8-7.7); BASOPHIL % 0.2 % (0.0-2.0); EOSINOPHIL % 0.1 % (0.0-4.0); HEMATOCRIT 23.2 % (39.0-51.0); HEMO FLAGS DIFF FINAL; LYMPH % 14.5 % (9.0-44.0); LYMPHOCYTE # 2.1 TH/MM3 (1.0-4.8); MEAN CELL VOLUME 88.3 FL (80.0-100.0); MEAN CORPUSCULAR HEMOGLOBIN 28.7 PG (27.0-34.0); MEAN CORPUSCULAR HGB CONC 32.5 % (32.0-36.0); MONO % 9.6 % (0.0-8.0); NEUT % 75.6 % (16.0-70.0); PLATELET COUNT 110 TH/MM3 (150-450); RED BLOOD COUNT 2.63 MIL/MM3 (4.50-5.90); RED CELL DISTRIBUTION WIDTH 16.7 % (11.6-17.2); WHITE BLOOD COUNT 14.1 TH/MM3 (4.0-11.0)
[2016-06-20 06:47] LABS: APTT (PATIENT) 35.5 SEC (24.3-30.1)
[2016-06-20 07:09] LABS: MAGNESIUM 2.4 MG/DL (1.5-2.5); POTASSIUM 4.5 MEQ/L (3.5-5.1)
[2016-06-20] MEDS: RESP: ALBUTEROL 2.5 MG/IPRATROPIUM 0.5 MG NEB (SCH) NEB ×3 (07:32→20:39)
[2016-06-20] MEDS: POLYETHYLENE GLYCOL 17 GM PKG PO SCH (09:00)
[2016-06-20] MEDS: amLODIPine BESYLATE 5 MG TAB PO SCH (09:00)
[2016-06-20] MEDS: ARTIFICIAL TEARS OPTH SOLN 15 ML BTL EACH EYE SCH ×3 (09:00→17:27)
[2016-06-20] MEDS: MAGNESIUM HYDROXIDE SUSP 30 ML CUP PO SCH (09:00)
[2016-06-20] MEDS: CLOPIDOGREL 75 MG TAB PO SCH (09:00)
[2016-06-20] MEDS: SODIUM CHLORIDE 0.9% FLUSH 5 ML FLUSH IV FLUSH SCH ×2 (09:00→21:25)
[2016-06-20] MEDS: DOCUSATE SODIUM 100 MG CAP PO SCH ×3 (09:55→21:23)
[2016-06-20] MEDS: MULTIVITAMINS/MINERALS THERAPEUTIC TAB PO SCH (09:56)
[2016-06-20] MEDS: GABAPENTIN 300 MG CAP PO SCH ×3 (09:56→17:27)
[2016-06-20] MEDS: AMIODARONE 200 MG TAB PO SCH ×2 (09:56→21:24)
[2016-06-20] MEDS: NICOTINE 14 MG/24 HR PATCH TD SCH (09:59)
[2016-06-20] MEDS: COREG PO SCH ×2 (10:17→21:23)
[2016-06-20] MEDS: ASPIRIN 81 MG CHEW TAB PO SCH (10:17)
--- NOTE | 2016-06-20 11:08 | HHI.PR ---
Subjective Remarks up in chair appears comfortable- pain slight on chest - post op site, no nausea or vomiting no reported melena or hematochezia Objective Vitals Vital Signs Date Time Temp Pulse Resp B/P Pulse Ox O2 Delivery O2 Flow Rate FiO2 06/20/16 07:36 93 Nasal Cannula 3.00 06/20/16 06:00 70 06/20/16 05:00 70 06/20/16 04:51 70 06/20/16 04:07 Nasal Cannula 4.00 60 06/20/16 04:06 72 121/62 93 06/20/16 03:38 70 06/20/16 02:00 70 06/20/16 01:00 70 06/20/16 00:33 Nasal Cannula 4.00 60 06/20/16 00:21 98.1 70 108/62 97 06/20/16 00:00 70 06/19/16 23:00 70 06/19/16 22:00 70 06/19/16 21:00 70 06/19/16 20:00 70 06/19/16 20:00 Nasal Cannula 4.00 06/19/16 20:00 98.0 70 128/57 99 06/19/16 19:28 97 Nasal Cannula 4.00 06/19/16 19:00 70 06/19/16 18:00 70 06/19/16 17:00 70 06/19/16 16:57 97 Nasal Cannula 4.00 06/19/16 16:00 70 100/53 97 06/19/16 16:00 70 06/19/16 15:30 70 06/19/16 12:02 99 Nasal Cannula 4.00 06/19/16 12:00 98.1 69 16 97/52 99 I/O 06/19/16 06/19/16 06/19/16 06/20/16 06/20/16 06/20/16 07:00 15:00 23:00 07:00 15:00 23:00 Intake Total 1662 ml 240 ml 240 ml Output Total 825 ml 530 ml 130 ml Balance 837 ml -290 ml 110 ml Intake Oral 120 ml 240 ml 240 ml IV Total 1542 ml Output Urine Total 405 ml 300 ml 0 ml Chest Tube Drainage Total 420 ml 230 ml 130 ml Bladder Scan Volume Amount 102 ml 341 ml # Bowel Movements 0 Result Diagram: 06/20/16 0606/20/16 0600 Imaging Last Impressions Chest X-Ray 06/19/16 0500 Signed Impressions: Service Date/Time: May 05:07 - CONCLUSION: No significant change has occurred. Kervin Jacob MD Abdomen/Pelvis CT 06/17/16 0000 Signed Impressions: Service Date/Time: Friday, June 17, 2016 11:44 - CONCLUSION: 1. Uncomplicated colonic diverticulosis. 2. 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 3. Ventral abdominal wall hernia containing only fat. 4. Enlarged prostate. 5. Small bilateral pleural effusions (right larger than left). 6. Bibasilar alveolar consolidations consistent with compressive atelectasis and/or infiltrates. 7. Cardiomegaly. 8. 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 9. Left renal cysts. 10. Degenerative changes throughout the thoracolumbar spine. South Munoz MD Lower Extremity Ultrasound 06/10/16 0000 Signed Impressions: Service Date/Time: Friday, June 10, 2016 16:44 - CONCLUSION: Venous mapping study as described. Gregorio Walsh MD Carotid Artery Ultrasound 06/10/16 0000 Signed Impressions: Service Date/Time: Friday, June 10, 2016 16:11 - CONCLUSION: Mild to moderate plaquing bilaterally with less than 50%% diameter stenosis by velocity criteria. Gregorio Walsh MD CT Angiography 06/07/16 0000 Signed Impressions: Service Date/Time: Tuesday, June 07, 2016 15:18 - CONCLUSION: 1. No pulmonary embolus. 2. Very small, bilateral pleural effusions and patchy bilateral airspace opacities. 3. Mildly enlarged mediastinal lymph nodes, nonspecific. 4. Several nodules up to 2 cm in size of the left adrenal gland, incompletely characterized but statistically most likely adenomas. There is a cyst of the left kidney. 5. Coronary artery calcification. Florencio Hamilton MD Objective Remarks awake and alert NAD anicteric, oral mucosa moist lungs clear, chest tubes in place regular rhythm- paced on telemetry abdomen soft, nontender, good bowel sounds extremities -no edema neurologic exam- unremarkable Procedures 06/16- EGD- retained food 06/18- CABG Urinary Catheter: No Date of Removal: Jun 19, 2016 A/P Problem List: (1) History of ventricular tachycardia ICD Code: Z86.79 Status: Acute (2) Diabetes mellitus ICD Code: E11.9 Status: Acute (3) Anemia ICD Code: D64.9 Status: Acute (4) Hyperparathyroidism ICD Code: E21.3 Status: Acute (5) Peripheral neuropathy ICD Code: G62.9 Status: Acute (6) Peripheral vascular disease ICD Code: I73.9 Status: Acute (7) Leukocytosis ICD Code: D72.829 Status: Acute (8) Chronic kidney disease, stage III (moderate) ICD Code: N18.3 Status: Acute (9) Dyslipidemia ICD Code: E78.5 Status: Acute (10) Hypertension ICD Code: I10 Status: Acute (11) Chronic systolic heart failure ICD Code: I50.22 Status: Acute (12) Coronary artery disease ICD Code: I25.10 Status: Acute (13) Acute respiratory failure with hypoxia ICD Code: J96.01 Status: Acute (14) SIRS (systemic inflammatory response syndrome) ICD Code: R65.10 Status: Acute Assessment and Plan Chronic systolic heart failure EF 25-30% with mild LVH and diffuse hypokinesis Peripheral vascular disease - history of right femoropopliteal with in situ saphenous vein grafting with thrombectomy of popliteal artery/anterior posterior tibial arteries [address] Mayes Coronary artery disease recent PCI/drug-eluting stent to RCA/PDA 04/[address] Kan secondary to inferior STEMI Dual-chamber defibrillator placed 05/[address] Yousif. DDD/70 Hypertension Dyslipidemia Elevated troponin Stent thrombosis RCA Severe CAD three-vessel LAD, circumflex, stented RCA- Post op anemia Cardiology -Dr. Kan ff S/P left heart catheterization 06/09/16-left main 4050 percent occlusion, left circumflex 70% occlusion,thrombosed RCA Continue amiodarone 200 mg by mouth daily for history of V. tach aspirin 81 mg daily for heart stent- Hold Brilinta Bumex - DC 06/18 Kilo 30 mg by mouth daily for dyslipidemia. on Coreg twice a day and Norvasc 2.5 mg by mouth daily for hypertension. S/p 2 units RBC 06/18. Recheck in am S/P CABG 06/18. Vascular surgery ff. Dr. Langley ff S/P EGD A- GIB - with melena S/P transfuse total 4 units RBC IV PPI. monitor f Acute hypoxemic respiratory failure On nasal cannula 3 L/m O2 sat 93-94%, however on 06/13/16 noted more sob and requiring increasing O2 on venti mask now. Wean O2 as tolerated Bronchodilator therapy every 6 hours and as needed Initiate incentive spirometry-encourage use Requiring more O2 on 06/13. Will do ABG, CXR, BNP,check labs cbc, bmp, mag Chest x-ray reveals bilateral lower lobe infiltrates. Repeat CXR 06/13/16 Right perihilar infiltrate is a new finding from the prior exam. Trace amount of fluid tracking along the minor fissure. BNP in 500s Continue IV antibiotics for aspiration PNA. Wean off O2. Aspiration precautions discussed with the patient at length, he expressed understanding. Gastroesophageal reflux disease ADA diet. Protonix for GI prophylaxis. Colace/as needed Senokot for bowel regimen Diabetes mellitus type 2 On lispro 15 units daily at home. Sliding-scale insulin with Accu-Cheks every 4 hours to maintain euglycemia. Will initiate insulin drip if unable to maintain tight euglycemic control Peripheral neuropathy secondary to diabetes Anxiety Neurontin 300 mg by mouth 3 times a day for neuropathy. Acetaminophen for fever [place]/morphine for pain management, [place] to 10/325mg, Dilaudid added every 4 hours when necessary for pain Change Xanax to ativan 0.5 Q6 hrs prn Acute kidney injury with underlying Chronic kidney disease stage III. Bumex was DC 06/18 creatinine up today- banda removed- 06/19- no output yet- bladder scan- 300s consider placing banda back if no output patient will reduced RBC transfusion 2 units. consider start gentle hydration after transfusion nephrology consulted- ? hold Bumex Possible community-acquired pneumonia History of MRSA treated with Zyvox cefepime/Zithromax. Zyvox 2/2 history of MRSA pneumonia in sputum Blood cultures 2, sputum and UA NGTD Influenza negative FEN: Replace electrolytes as clinically indicated Osteoarthritis- stable Prophylaxis - GI - Protonix - chemical prophylaxis held for procedure Problem Qualifiers (1) Diabetes mellitus: Qualified Code: E11.8 - Type 2 diabetes mellitus with complication, with long- term current use of insulin (2) Anemia: Qualified Code: D64.9 - Anemia, unspecified type (3) Peripheral neuropathy: Qualified Code: G62.9 - Peripheral polyneuropathy (4) Leukocytosis: Qualified Code: D72.829 - Leukocytosis, unspecified type (5) Coronary artery disease: Qualified Code: I25.10 - Coronary artery disease involving [place] coronary artery of [place] heart, angina presence unspecified Marie Alex MD Jun 20, 2016 11:08
--- NOTE | 2016-06-20 14:38 | HHI.IDPN ---
Note Infectious Disease Note Patient feels okay. Sitting up in chair. Denies chills, SOB. Chest sore at surgical incision. Afebrile. Occasional cough but no sputum production. Post CABG 06/19. PAST MEDICAL HISTORY 1. Coronary artery disease, 2. Hypertension, 3. Diabetes mellitus, 4. Congestive heart failure 5. Myocardial infarction 6. Ventricular tachycardia, 7. Chronic kidney disease, 8. Peripheral vascular disease, 9. Anemia 10. Hyperparathyroidism 11. Pacemaker placement 12. Right fem-pop revision ALLERGIES NO KNOWN DRUG ALLERGIES. MEDICATIONS Current Medications Medications (Trade) Dose Ordered Sig/Lily Route PRN Reason Start Time Stop Time Status Last Admin Dose Admin Amlodipine Besylate (Norvasc) 2.5 mg DAILY PO 06/07/16 09:00 06/18/16 08:17 Gabapentin (Neurontin) 300 mg TID PO 06/07/16 09:00 06/20/16 11:56 Artificial Tears (Tears Naturale Opth Soln) 1 drop TID EACH EYE 06/07/16 09:00 06/19/16 09:00 Nicotine (Habitrol 14 Mg Patch.24 Hr) 1 patch DAILY TD 06/10/16 09:00 06/20/16 09:59 Miscellaneous Information 1 HS TD 06/10/16 21:00 06/19/16 21:00 IV Flush (NS Flush) 2 ml BID IV FLUSH 06/10/16 21:00 06/20/16 09:00 IV Flush (NS Flush) 2 ml UNSCH PRN IV FLUSH FLUSH AFTER USING IV ACCESS 06/10/16 15:30 06/18/16 08:19 Lorazepam 0.5 mg 0.5 mg Q6H PRN PO anxiety 06/15/16 09:00 06/19/16 09:23 Lactated Ringer's (Lr 1000 ml Inj) 500 ml @ 500 mls/hr Q1H PRN IV SEE LABEL COMMENTS 06/18/16 14:14 Aspirin (Aspirin Chew) 81 mg DAILY PO 06/19/16 09:00 06/20/16 10:17 Clopidogrel Bisulfate (Plavix) 75 mg DAILY PO 06/19/16 09:00 06/19/16 08:34 Amiodarone HCl (Cordarone) 200 mg Q12HR PO 06/18/16 21:00 06/20/16 09:56 Acetaminophen (Tylenol) 650 mg Q4H PRN PO TEMPERATURE > 101 F 06/18/16 14:15 Acetaminophen/ Hydrocodone Bitart ([place] 5-325 Mg) 1 tab Q3H PRN PO PAIN SCALE 1 TO 5 06/18/16 14:15 06/19/16 02:57 Acetaminophen/ Hydrocodone Bitart ([place] 5-325 Mg) 2 tab Q3H PRN PO PAIN SCALE 6 TO 10 06/18/16 14:15 06/20/16 11:40 Ondansetron HCl 4 mg 4 mg Q6H PRN IV PUSH NAUSEA OR VOMITING 06/18/16 14:15 06/19/16 03:27 Magnesium Sulfate 2 gm/Sodium Chloride 104 ml @ 100 mls/hr UNSCH PRN IV SEE LABEL COMMENTS 06/18/16 14:15 Magnesium Sulfate/ Sodium Chloride (Magnesium Sulfate Inj/NS Inj) 104 ml @ 50 mls/hr UNSCH PRN IV SEE LABEL COMMENTS 06/18/16 14:15 Docusate Sodium (Colace) 100 mg BID PO 06/19/16 21:00 06/20/16 09:55 Multivitamins/ Minerals Therapeutic (Theragran M Tab) 1 tab DAILY PO 06/20/16 09:00 06/20/16 09:56 Magnesium Hydroxide (Milk Of Magnesia Liq) 30 ml DAILY PO 06/19/16 10:00 Polyethylene Glycol (Miralax) 17 gm DAILY PO 06/20/16 09:00 Sennosides (Senokot) 8.6 mg HS PO 06/19/16 21:00 Sodium Biphosphate/ Sodium Phosphate (Fleets Enema (Adult)) 133 ml UNSCH PRN RECTAL SEE LABEL COMMENTS 06/19/16 09:15 Dextrose (D50w (Vial) Inj) 25 ml UNSCH PRN IV HYPOGLYCEMIA-SEE COMMENTS 06/19/16 09:15 Glucagon (Glucagon Inj) 1 mg UNSCH PRN OTHER HYPOGLYCEMIA-SEE COMMENTS 06/19/16 09:15 Morphine Sulfate (Morphine Inj) 2 mg Q6H PRN IV BREAKTHROUGH PAIN 06/19/16 09:30 06/20/16 09:59 Morphine Sulfate (Morphine Inj) 2 mg Q6H PRN IV BREAKTHROUGH PAIN 06/19/16 09:30 Carvedilol (Coreg) 3.125 mg Q12HR PO 06/20/16 09:00 06/20/16 10:17 Insulin Aspart (NovoLOG SUPPLEMENTAL SCALE) 1 ACHS SQ 06/20/16 11:00 06/20/16 11:00 Atorvastatin Calcium (Lipitor) 40 mg HS PO 06/19/16 21:00 06/19/16 21:05 Pantoprazole Sodium (Protonix) 40 mg DAILY PO 06/21/16 09:00 SOCIAL HISTORY Positive tobacco use. The patient smoked 3/4 packs of tobacco a day. No illicit drug use. Occasional alcohol. Objective: Vital Signs Date Time Temp Pulse Resp B/P Pulse Ox O2 Delivery O2 Flow Rate FiO2 06/20/16 13:38 70 06/20/16 13:13 95 Nasal Cannula 1.00 06/20/16 12:03 117/41 06/20/16 12:00 70 06/20/16 12:00 98.0 83 119/66 95 06/20/16 11:38 98.0 83 17 119/66 95 06/20/16 11:00 70 06/20/16 10:00 70 06/20/16 09:00 70 06/20/16 08:00 98.3 70 17 92/56 93 06/20/16 08:00 70 06/20/16 08:00 93 2.00 06/20/16 07:36 93 Nasal Cannula 3.00 06/20/16 07:00 70 06/20/16 06:00 70 06/20/16 05:00 70 06/20/16 04:51 70 06/20/16 04:07 Nasal Cannula 4.00 60 06/20/16 04:06 72 121/62 93 06/20/16 03:38 70 06/20/16 02:00 70 06/20/16 01:00 70 06/20/16 00:33 Nasal Cannula 4.00 60 06/20/16 00:21 98.1 70 108/62 97 06/20/16 00:00 70 06/19/16 23:00 70 06/19/16 22:00 70 06/19/16 21:00 70 06/19/16 20:00 70 06/19/16 20:00 Nasal Cannula 4.00 06/19/16 20:00 98.0 70 128/57 99 06/19/16 19:28 97 Nasal Cannula 4.00 06/19/16 19:00 70 06/19/16 18:00 70 06/19/16 17:00 70 06/19/16 16:57 97 Nasal Cannula 4.00 06/19/16 16:00 70 100/53 97 06/19/16 16:00 70 06/19/16 15:30 70 06/19/16 06/19/16 06/20/16 15:00 23:00 07:00 Intake Total 240 ml 240 ml Output Total 530 ml 130 ml Balance -290 ml 110 ml Intake Oral 240 ml 240 ml Output Urine Total 300 ml 0 ml Chest Tube Drainage Total 230 ml 130 ml Bladder Scan Volume Amount 102 ml Laboratory Tests Test 06/19/16 06/20/16 05:00 06:00 White Blood Count 12.7 TH/MM3 14.1 TH/MM3 Red Blood Count 2.67 MIL/MM3 2.63 MIL/MM3 Hemoglobin 7.9 GM/DL 7.5 GM/DL Hematocrit 23.3 % 23.2 % Mean Corpuscular Volume 87.3 FL 88.3 FL Mean Corpuscular Hemoglobin 29.7 PG 28.7 PG Mean Corpuscular Hemoglobin 34.0 % 32.5 % Concent Red Cell Distribution Width 16.8 % 16.7 % Platelet Count 111 TH/MM3 110 TH/MM3 Mean Platelet Volume 7.9 FL 8.2 FL Neutrophils (%) (Auto) 75.6 % Lymphocytes (%) (Auto) 14.5 % Monocytes (%) (Auto) 9.6 % Eosinophils (%) (Auto) 0.1 % Basophils (%) (Auto) 0.2 % Neutrophils # (Auto) 10.7 TH/MM3 Lymphocytes # (Auto) 2.1 TH/MM3 Monocytes # (Auto) 1.4 TH/MM3 Eosinophils # (Auto) 0.0 TH/MM3 Basophils # (Auto) 0.0 TH/MM3 CBC Comment DIFF FINAL Differential Comment Laboratory Tests Test 06/19/16 06/20/16 05:00 06:00 Sodium Level 142 MEQ/L 138 MEQ/L Potassium Level 4.1 MEQ/L 4.5 MEQ/L Chloride Level 108 MEQ/L 105 MEQ/L Carbon Dioxide Level 21.6 MEQ/L 24.0 MEQ/L Anion Gap 12 MEQ/L 9 MEQ/L Blood Urea Nitrogen 31 MG/DL 42 MG/DL Creatinine 1.61 MG/DL 2.60 MG/DL Estimat Glomerular Filtration 43 ML/MIN 25 ML/MIN Rate Random Glucose 79 MG/DL 112 MG/DL Calcium Level 8.0 MG/DL 8.0 MG/DL Magnesium Level 2.2 MG/DL 2.4 MG/DL PHYSICAL EXAMINATION GENERAL: No acute distress. He is oriented x3. HEENT: Extraocular movements grossly intact, pupils reactive to light. No icterus. Oropharynx mucosa moist. NECK: Supple without adenopathy. LUNGS: CTA. Breath sounds decreased. HEART: Regular rate and rhythm without murmurs or rubs or gallops. CHEST: No erythema. There is a sponge overlying the sternum. ABDOMEN: Bowel sounds present but diminished, soft, nontender. EXTREMITIES: No clubbing, cyanosis or edema. SKIN: No rash. NEUROLOGIC: Nonfocal. IMPRESSION 1. Coronary artery disease status post coronary artery bypass graft surgery 2. Pneumonia indicated by infiltrate in the lung which has been treated with IV antibiotics and appears stable. 3. Mild elevation in white blood cell count. Appears stable. Monitor without antibiotics. Santino Vega MD Jun 20, 2016 14:38
--- NOTE | 2016-06-20 18:10 | PD.CAR.PN ---
CVT Progress Note CVT: POD #: 2 Subjective/Hospital Course: 65-year-old male. Date of admission 06/07/2016. Past medical history includes recent heart catheterization 04/30/[address] Kan secondary to an inferior STEMI with PCI/MERE placed placed to the RCA and PDA. Left main was 30%. LAD was 40% proximal/80% diagonal. Left circumflex was 30%. EF was 20/5/30 percent. Im [place] devices placed as well. Patient had prolonged intubation During this hospitalization developed V. tach as well and a dual-chamber defibrillator was placed by Dr. Yousif /DDD 70 on 05/27. presented this admission , admitted this admission with NSTEMI, resp failure with hypoxia , underwent cardiac cath by Dr Kan, MAGALIE to stent thrombosis of RCA 06/09 pt was on Brilinta at home PMH: CAD, with 2 prior stents by the hypertension, diabetes,'s chronic systolic heart failure EF 20-25% , , peripheral vascular disease with a right femoropopliteal in situ saphenous vein revision [address] Mayes with thrombolytic colectomy to the popliteal artery and anterior and posterior tibial arteries, 06/13 NO PAIN DURING THE NIGHT OOB with assistance on aggrastat and heparin 06/16 pt developed GI Bleed with Heme + stools HGB 7.0/ for 2 units PRBC GI consult, for EGD today on protonix gtt heparin and Aggrastat dc rescheduled for surgery on 06/17 EGD completed , gastroparesis CT abd / pelvis pending HGB stable , spoke with GI Dr Lnatigua will need colonoscopy as outpt hold on restarting heparin and Aggrastat for now although GI was ok with restarting anticoagulation keep scheduled for surgery in am 06/18 1. Urgent Off-pump Coronary Artery Bypass Grafting x 3 with left internal mammary artery (WANG) to left anterior descending (LAD), reverse saphenous vein graft to OM1, reverse saphenous vein graft to the RPDA 2. Left Leg Endoscopic Vein [place] 2200cc crystalloid, 2 PRBC 750cc cell saver , EBL 1500cc had large bloody BM 06/19 extubated after surgery, on nasal cannula wants to sleep, not get OOB discussed importance if pulm toileting and getting OOB no pressors, HGB 7.[address] Langley / recheck HGB this afternoon remains on protonix gtt will transfer to stepdown 06/20 HGB 7.5/ transfuse one unit PRBC continue PPI worsening renal indices, consult Nephrology check renal US urinary retention/ per bladder scan/ refuses urinary cath " does not have the urge to void at this time " CT 130cc/ 12/ additional 120 since this am . Objective: GENERAL: SKIN: Warm and dry.prevena to chest / incision intact to left leg HEAD: Normocephalic. EYES: No scleral icterus. No injection or drainage. NECK: Supple, trachea midline. No JVD or lymphadenopathy. CARDIOVASCULAR: Regular rate and rhythm without murmurs, gallops, or rubs. RESPIRATORY: diminished in bases Breath sounds equal bilaterally. No accessory muscle use. chest tube to wall suction/ no air leak GASTROINTESTINAL: Abdomen soft, non-tender, nondistended. MUSCULOSKELETAL: No cyanosis, or edema. BACK: Nontender without obvious deformity. No CVA tenderness. Vital Signs Date Time Temp Pulse Resp B/P Pulse Ox O2 Delivery O2 Flow Rate FiO2 06/20/16 16:11 70 06/20/16 16:10 95 1.00 06/20/16 16:09 97.7 70 18 90/59 95 06/20/16 15:25 97.4 97/53 06/20/16 15:00 70 06/20/16 14:33 96/65 06/20/16 14:00 70 06/20/16 13:38 70 06/20/16 13:13 95 Nasal Cannula 1.00 06/20/16 12:05 105/68 06/20/16 12:03 117/41 06/20/16 12:00 70 06/20/16 12:00 98.0 83 119/66 95 06/20/16 11:40 119/66 06/20/16 11:38 98.0 83 17 119/66 95 06/20/16 11:00 70 06/20/16 10:00 70 06/20/16 09:00 70 06/20/16 08:00 98.3 70 17 92/56 93 06/20/16 08:00 70 06/20/16 08:00 93 2.00 06/20/16 07:36 93 Nasal Cannula 3.00 06/20/16 07:00 70 06/20/16 06:00 70 06/20/16 05:00 70 06/20/16 04:51 70 06/20/16 04:07 Nasal Cannula 4.00 60 06/20/16 04:06 72 121/62 93 06/20/16 03:38 70 06/20/16 02:00 70 06/20/16 01:00 70 06/20/16 00:33 Nasal Cannula 4.00 60 06/20/16 00:21 98.1 70 108/62 97 06/20/16 00:00 70 06/19/16 23:00 70 06/19/16 22:00 70 06/19/16 21:00 70 06/19/16 20:00 70 06/19/16 20:00 Nasal Cannula 4.00 06/19/16 20:00 98.0 70 128/57 99 06/19/16 19:28 97 Nasal Cannula 4.00 06/19/16 19:00 70 06/19/16 18:00 70 Labs: Laboratory Tests Test 06/20/16 06/20/16 06:00 10:28 White Blood Count 14.1 TH/MM3 (4.0-11.0) Red Blood Count 2.63 MIL/MM3 (4.50-5.90) Hemoglobin 7.5 GM/DL (13.0-17.0) Hematocrit 23.2 % (39.0-51.0) Mean Corpuscular Volume 88.3 FL (80.0-100.0) Mean Corpuscular Hemoglobin 28.7 PG (27.0-34.0) Mean Corpuscular Hemoglobin 32.5 % Concent (32.0-36.0) Red Cell Distribution Width 16.7 % (11.6-17.2) Platelet Count 110 TH/MM3 (150-450) Mean Platelet Volume 8.2 FL (7.0-11.0) Neutrophils (%) (Auto) 75.6 % (16.0-70.0) Lymphocytes (%) (Auto) 14.5 % (9.0-44.0) Monocytes (%) (Auto) 9.6 % (0.0-8.0) Eosinophils (%) (Auto) 0.1 % (0.0-4.0) Basophils (%) (Auto) 0.2 % (0.0-2.0) Neutrophils # (Auto) 10.7 TH/MM3 (1.8-7.7) Lymphocytes # (Auto) 2.1 TH/MM3 (1.0-4.8) Monocytes # (Auto) 1.4 TH/MM3 (0-0.9) Eosinophils # (Auto) 0.0 TH/MM3 (0-0.4) Basophils # (Auto) 0.0 TH/MM3 (0-0.2) CBC Comment DIFF FINAL Differential Comment Activated Partial 35.5 SEC Thromboplast Time (24.3-30.1) Sodium Level 138 MEQ/L (136-145) Potassium Level 4.5 MEQ/L (3.5-5.1) Chloride Level 105 MEQ/L (98-107) Carbon Dioxide Level 24.0 MEQ/L (21.0-32.0) Anion Gap 9 MEQ/L (5-15) Blood Urea Nitrogen 42 MG/DL (7-18) Creatinine 2.60 MG/DL (0.60-1.30) Estimat Glomerular Filtration 25 ML/MIN (>89) Rate Random Glucose 112 MG/DL (74-106) Calcium Level 8.0 MG/DL (8.5-10.1) Magnesium Level 2.4 MG/DL (1.5-2.5) Blood Type O POSITIVE Crossmatch Leukocyte-Reduced Red Blood Cells Blood Bank Comment Result Diagram: 06/20/16 0600 06/20/16 0600 Cardiovascular: NSR (1) NSTEMI (non-ST elevated myocardial infarction) (2) Coronary artery disease Plan: statin BB , ASA, statin OOB ambulate pain control pulm toileting (3) S/P CABG x 3 Plan: on ASA, BB in am , statin OOB, ambulate pulm toileting (4) Acute respiratory failure with hypoxia Plan: resolved (5) SIRS (systemic inflammatory response syndrome) Plan: improved, off antibiotics / appreciate ID for input (6) History of ventricular tachycardia (7) Chronic kidney disease, stage III (moderate) Plan: creatinine 1.61> 2.60 nephrology consult check US renal urinary retention/ refuses banda cath (8) Chronic systolic heart failure (9) Dyslipidemia Plan: statin (10) Hypertension Plan: stable (11) Peripheral vascular disease Plan: no claudia hose (12) Peripheral neuropathy (13) Pressure ulcer of left heel, unstageable Plan: podiatry following (14) Pressure ulcer of right heel, unstageable (15) Blood loss anemia Plan: s/p PRBC 06/18 monitor (16) Diabetes mellitus Plan: diabetic diet / insulin sliding scale Problem Qualifiers (1) Coronary artery disease: Qualified Code: I25.10 - Coronary artery disease involving [place] coronary artery of [place] heart, angina presence unspecified (2) Peripheral neuropathy: Qualified Code: G62.9 - Peripheral polyneuropathy (3) Diabetes mellitus: Qualified Code: E11.8 - Type 2 diabetes mellitus with complication, with long- term current use of insulin Nicole Lazar Jun 20, 2016 18:10
[2016-06-20] MEDS: SENNOSIDES 8.6 MG TAB PO SCH ×2 (21:00→21:23)
[2016-06-20] MEDS: REMOVE OLD PATCH TD SCH (21:00)
[2016-06-20] MEDS: ATORVASTATIN 40 MG TAB PO SCH (21:24)
--- NOTE | 2016-06-20 22:44 | RADRPT ---
EXAM DATE/TIME: 06/20/2016 19:26 [place] COMPARISON: No previous studies available for comparison. INDICATIONS : Possible obstruction. MEDICAL HISTORY : Hypertension. Renal failure, chronic. Hyperparathyroidism. Diabetes. Peripheral vascular disease. C hronic systolic heart failure. Anemia. SURGICAL HISTORY : Carotid stent. Appendectomy. Bilateral inguinal hernia repair. Right fem-pop. ENCOUNTER: Subsequent ACUITY: 1 day PAIN SCORE: 8/10 LOCATION: Bilateral flank MEASUREMENTS: RIGHT KIDNEY: 11.7 x 5.5 x 6.2 cm LEFT KIDNEY: 11.8 x 5.3 x 7.4 cm FINDINGS: RIGHT KIDNEY: Mild increase in renal cortical echogenicity. No evidence of mass or hydronephrosis. LEFT KIDNEY: Mild increase in renal cortical echogenicity. No evidence of hydronephrosis. Small cysts involving me dial upper pole and lateral lower pole cortex BLADDER: Within normal limits given the degree of distension. CONCLUSION: 2 cysts involving the left kidney. No hydronephrosis. Mild increase in cortical echogenicity kenna Gomez MD on June 20, 2016 at 22:40 Board Certified Radiologist. This report was verified electronically.
[2016-06-21] VITALS (27 sets, daily range): BP systolic 85–125; BP diastolic 51–67; PULSE 70–72; RESP 18–20; TEMP 97.6–98.6; O2SAT 91–96
[2016-06-21] MEDS: ACETAMINOPHEN/HYDROcodone 325 MG/5 MG TAB PO PRN ×6 (00:29→20:14)
[2016-06-21] MEDS: INSULIN ASPART SUPPLEMENTAL SCALE SQ SCH ×4 (07:00→20:47)
[2016-06-21 07:15] LABS: AUTOMATED NEUTROPHIL # 9.1 TH/MM3 (1.8-7.7); BASOPHIL # 0.1 TH/MM3 (0-0.2); BASOPHIL % 0.5 % (0.0-2.0); EOSINOPHIL # 0.1 TH/MM3 (0-0.4); EOSINOPHIL % 0.4 % (0.0-4.0); MEAN CELL VOLUME 88.7 FL (80.0-100.0); MEAN CORPUSCULAR HEMOGLOBIN 29.4 PG (27.0-34.0); MEAN CORPUSCULAR HGB CONC 33.2 % (32.0-36.0); MONO % 11.8 % (0.0-8.0); NEUT % 71.3 % (16.0-70.0); PLATELET COUNT 98 TH/MM3 (150-450); RED CELL DISTRIBUTION WIDTH 16.3 % (11.6-17.2); WHITE BLOOD COUNT 12.8 TH/MM3 (4.0-11.0)
[2016-06-21 07:17] LABS: HEMO FLAGS AUTO DIFF
[2016-06-21] MEDS: RESP: ALBUTEROL 2.5 MG/IPRATROPIUM 0.5 MG NEB (SCH) NEB (07:19)
[2016-06-21 07:44] LABS: BICARBONATE 22.8 MEQ/L (21.0-32.0); POTASSIUM 4.3 MEQ/L (3.5-5.1)
[2016-06-21] MEDS: GABAPENTIN 300 MG CAP PO SCH ×3 (07:52→17:25)
[2016-06-21] MEDS: MULTIVITAMINS/MINERALS THERAPEUTIC TAB PO SCH (07:52)
[2016-06-21] MEDS: ASPIRIN 81 MG CHEW TAB PO SCH (07:53)
[2016-06-21] MEDS: PANTOPRAZOLE SOD 40 MG DELAYED RELEASE TAB PO SCH (07:53)
[2016-06-21] MEDS: SODIUM CHLORIDE 0.9% FLUSH 5 ML FLUSH IV FLUSH SCH ×2 (07:53→20:15)
[2016-06-21] MEDS: amLODIPine BESYLATE 5 MG TAB PO SCH (07:53)
[2016-06-21] MEDS: COREG PO SCH ×2 (07:53→20:14)
[2016-06-21] MEDS: AMIODARONE 200 MG TAB PO SCH ×2 (07:53→20:14)
[2016-06-21] MEDS: ARTIFICIAL TEARS OPTH SOLN 15 ML BTL EACH EYE SCH ×3 (07:54→17:26)
[2016-06-21] MEDS: POLYETHYLENE GLYCOL 17 GM PKG PO SCH (07:55)
[2016-06-21] MEDS: DOCUSATE SODIUM 100 MG CAP PO SCH ×2 (07:55→20:14)
--- NOTE | 2016-06-21 07:55 | HHI.PR ---
Subjective Remarks f/u ; CAD resting comfortably with no distress. chest tube in place. complaining of pain to both legs. d/w the RN and otherwise no other acute issues over night. Objective Vitals Vital Signs Date Time Temp Pulse Resp B/P Pulse Ox O2 Delivery O2 Flow Rate FiO2 06/21/16 07:20 93 Nasal Cannula 2.00 06/21/16 06:45 16 06/21/16 05:00 70 06/21/16 04:00 70 06/21/16 04:00 Nasal Cannula 1.00 06/21/16 03:00 70 06/21/16 03:00 98.4 70 20 115/66 91 06/21/16 02:00 70 06/21/16 01:30 16 06/21/16 01:00 70 06/21/16 00:00 70 06/21/16 00:00 Nasal Cannula 1.00 06/20/16 23:00 70 06/20/16 23:00 98.6 71 16 124/67 94 06/20/16 22:00 70 06/20/16 21:00 70 06/20/16 20:39 92 Nasal Cannula 2.00 06/20/16 20:00 91 Room Air 06/20/16 20:00 70 06/20/16 19:00 98.3 69 16 121/50 91 06/20/16 19:00 70 06/20/16 19:00 98.3 69 20 121/50 91 06/20/16 18:27 70 06/20/16 17:00 70 06/20/16 16:11 70 06/20/16 16:10 95 1.00 06/20/16 16:09 97.7 70 18 90/59 95 06/20/16 15:25 97.4 97/53 06/20/16 15:00 70 06/20/16 14:33 96/65 06/20/16 14:00 70 06/20/16 13:38 70 06/20/16 13:13 95 Nasal Cannula 1.00 06/20/16 12:05 105/68 06/20/16 12:03 117/41 06/20/16 12:00 70 06/20/16 12:00 98.0 83 119/66 95 06/20/16 11:40 119/66 06/20/16 11:38 98.0 83 17 119/66 95 06/20/16 11:00 70 06/20/16 10:00 70 06/20/16 09:00 70 06/20/16 08:00 98.3 70 17 92/56 93 06/20/16 08:00 70 06/20/16 08:00 93 2.00 I/O 06/20/16 06/20/16 06/20/16 06/21/16 06/21/16 06/21/16 07:00 15:00 23:00 07:00 15:00 23:00 Intake Total 240 ml 1235 ml 640 ml Output Total 130 ml 575 ml 1 ml Balance 110 ml 660 ml 639 ml Intake Oral 240 ml 960 ml 640 ml IV Total 25 ml Packed Cells 250 ml Output Urine Total 0 ml 125 ml Stool Total 1 ml Chest Tube Drainage Total 130 ml 450 ml Bladder Scan Volume Amount 102 ml 341 ml 447 ml # Voids 1 Result Diagram: 06/21/16 0620 06/20/16 0600 Imaging Last Impressions Renal Ultrasound 06/20/16 0000 Signed Impressions: Service Date/Time: Monday, June 20, 2016 19:26 - CONCLUSION: 2 cysts involving the left kidney. No hydronephrosis. Mild increase in cortical echogenicity bilaterally Florencio Gomez MD Chest X-Ray 06/19/16 0500 Signed Impressions: Service Date/Time: May 05:07 - CONCLUSION: No significant change has occurred. Kervin Jacob MD Abdomen/Pelvis CT 06/17/16 0000 Signed Impressions: Service Date/Time: Friday, June 17, 2016 11:44 - CONCLUSION: 1. Uncomplicated colonic diverticulosis. 2. 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 3. Ventral abdominal wall hernia containing only fat. 4. Enlarged prostate. 5. Small bilateral pleural effusions (right larger than left). 6. Bibasilar alveolar consolidations consistent with compressive atelectasis and/or infiltrates. 7. Cardiomegaly. 8. 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 9. Left renal cysts. 10. Degenerative changes throughout the thoracolumbar spine. South Munoz MD Lower Extremity Ultrasound 06/10/16 0000 Signed Impressions: Service Date/Time: Friday, June 10, 2016 16:44 - CONCLUSION: Venous mapping study as described. Gregorio Walsh MD Carotid Artery Ultrasound 06/10/16 0000 Signed Impressions: Service Date/Time: Friday, June 10, 2016 16:11 - CONCLUSION: Mild to moderate plaquing bilaterally with less than 50%% diameter stenosis by velocity criteria. Gregorio Walsh MD CT Angiography 06/07/16 0000 Signed Impressions: Service Date/Time: Tuesday, June 07, 2016 15:18 - CONCLUSION: 1. No pulmonary embolus. 2. Very small, bilateral pleural effusions and patchy bilateral airspace opacities. 3. Mildly enlarged mediastinal lymph nodes, nonspecific. 4. Several nodules up to 2 cm in size of the left adrenal gland, incompletely characterized but statistically most likely adenomas. There is a cyst of the left kidney. 5. Coronary artery calcification. Florencio Hamilton MD Objective Remarks GENERAL: This is a well-nourished, well-developed patient, in no apparent distress. CARDIOVASCULAR: Regular rate and regular rhythm without murmurs, gallops, or rubs. RESPIRATORY: Clear to auscultation. Breath sounds equal bilaterally. No wheezes , rales, or rhonchi. chest tube in place. GASTROINTESTINAL: Abdomen soft, non-tender, nondistended. Normal, active bowel sounds MUSCULOSKELETAL: Extremities without clubbing, cyanosis, or edema. NEURO: Alert & Oriented x4 to person, place, time, situation. Moves all ext x4 Procedures 06/16- EGD- retained food 06/18- CABG Medications and IVs Current Medications IV Flush 2 ml 2 ml UNSCH PRN IVF FLUSH AFTER USING IV ACCESS Last administered on 06/07/16 03:39; Start 06/07/16 at 02:00; Stop 06/07/16 at 04:26; Status DC Nitroglycerin/ Dextrose (Nitroglycerin-Dextrose Inj) 250 ml @ 0 mls/hr TITRATE ONCE IV Last administered on 06/07/16 02:07; Start 06/07/16 at 02:00; Stop 02/13 at 02:01; Status DC Lorazepam 0.5 mg 0.5 mg ONCE ONCE IV PUSH Last administered on 06/07/16 02:07 ; Start 06/07/16 at 02:00; Stop 06/07/16 at 02:01; Status DC Cefepime HCl 2000 mg/Sodium Chloride 100 ml @ 200 mls/hr ONCE ONCE IV Last administered on 06/07/16 05:27; Start 06/07/16 at 03:00; Stop 06/07/16 at 03:29 ; Status DC Azithromycin/ Sodium Chloride (Zithromax Inj/ NS 250 ml Inj) 250 ml @ 250 mls/ hr ONCE ONCE IV Last administered on 06/07/16 03:38; Start 06/07/16 at 03:00 ; Stop 06/07/16 at 03:59; Status DC Bumetanide (Bumex Inj) 1 mg ONCE ONCE IV PUSH Last administered on 06/07/16 03:39; Start 06/07/16 at 03:00; Stop 06/07/16 at 03:01; Status DC Lorazepam (Ativan Inj) 0.5 mg ONCE ONCE IV PUSH Last administered on 03:39; Start 06/07/16 at 03:00; Stop 06/07/16 at 03:01; Status DC Aspirin (Aspirin Chew) 162 mg ONCE ONCE CHEW Last administered on 06/07/16 03 :45; Start 06/07/16 at 03:45; Stop 06/07/16 at 03:46; Status DC IV Flush (NS Flush) 2 ml UNSCH PRN IV FLUSH FLUSH AFTER USING IV ACCESS; Start 06/07/16 at 04:30; Stop 06/07/16 at 06:54; Status DC IV Flush (NS Flush) 2 ml BID IV FLUSH ; Start 06/07/16 at 09:00; Stop 06/07/16 at 09:00; Status DC Acetaminophen (Tylenol) 650 mg Q6H PRN PO PAIN 1-10 AND/OR FEVER >101F; Start 06/07/16 at 04:30; Stop 06/07/16 at 06:54; Status DC Pantoprazole Sodium (Protonix Inj) 40 mg DAILY IV ; Start 06/07/16 at 09:00; Stop 06/07/16 at 09:00; Status DC Ondansetron HCl (Zofran Inj) 4 mg Q6H PRN IV NAUSEA OR VOMITING; Start at 04:30; Stop 06/18/16 at 14:47; Status DC Albuterol Sulfate (Albuterol Neb) 2.5 mg Q2HR NEB PRN INH SOB/WHEEZING; Start 06/07/16 at 04:30; Stop 06/18/16 at 16:15; Status DC Enoxaparin Sodium (Lovenox Inj) 40 mg Q24H SQ Last administered on 06/07/16 11 :16; Start 06/07/16 at 09:00; Stop 06/08/16 at 09:08; Status DC Miscellaneous Information 1 Q361D XX ; Start 06/07/16 at 04:30; Stop 06/19/16 at 09:14; Status DC Chlorhexidine Gluconate (Chlorhexidine 2% Cloth) Taper DAILY@04 TOP Last administered on 06/18/16 04:00; Start 06/08/16 at 04:00; Stop 06/19/16 at 09:14 ; Status DC Chlorhexidine Gluconate (Chlorhexidine 2% Cloth) 3 pack UNSCH PRN TOP HYGIENIC CARE; Start 06/07/16 at 04:30; Stop 06/19/16 at 09:14; Status DC Bumetanide 1 mg 1 mg Q12H IV PUSH Last administered on 06/09/16 02:44; Start 06/07/16 at 15:00; Stop 06/09/16 at 09:05; Status DC Cefepime HCl 2000 mg/Sodium Chloride 100 ml @ 200 mls/hr Q12H IV Last administered on 06/19/16 02:49; Start 06/07/16 at 15:00; Stop 06/19/16 at 13:47 ; Status DC Azithromycin/ Sodium Chloride (Zithromax Inj/ NS 250 ml Inj) 250 ml @ 250 mls/ hr Q24H IV Last administered on 06/19/16 02:50; Start 06/08/16 at 03:00; Stop 06/19/16 at 13:48; Status DC Dextrose (D50w (Vial) Inj) 25 ml UNSCH PRN IV PUSH HYPOGLYCEMIA-SEE COMMENTS; Start 06/07/16 at 04:30; Stop 06/18/16 at 15:09; Status DC Glucagon (Glucagon Inj) 1 mg UNSCH PRN OTHER HYPOGLYCEMIA-SEE COMMENTS; Start 06/07/16 at 04:30; Stop 06/18/16 at 15:09; Status DC Insulin Aspart (NovoLOG SUPPLEMENTAL SCALE) 1 Q4HR SQ Last administered on 06/17 21:01; Start 06/07/16 at 04:30; Stop 06/18/16 at 15:09; Status DC Aspirin (Aspirin Chew) 81 mg DAILY CHEW Last administered on 06/09/16 09:38; Start 06/07/16 at 09:00; Stop 06/09/16 at 15:32; Status DC Ticagrelor (Brilinta) 90 mg BID PO Last administered on 06/11/16 08:13; Start 06/07/16 at 09:00; Stop 06/19/16 at 09:14; Status DC Carvedilol (Coreg) 6.25 mg Q12HR PO Last administered on 06/18/16 08:18; Start 06/07/16 at 09:00; Stop 06/19/16 at 09:25; Status DC Amlodipine Besylate (Norvasc) 2.5 mg DAILY PO Last administered on 06/18/16 08 :17; Start 06/07/16 at 09:00 Amiodarone HCl (Cordarone) 200 mg DAILY PO Last administered on 06/18/16 08:17 ; Start 06/07/16 at 09:00; Stop 06/18/16 at 14:37; Status DC Atorvastatin Calcium (Lipitor) 20 mg DAILY PO Last administered on 06/19/16 08 :35; Start 06/07/16 at 09:00; Stop 06/19/16 at 13:51; Status DC Gabapentin (Neurontin) 300 mg TID PO Last administered on 06/20/16 17:27; Start 06/07/16 at 09:00 Insulin Detemir (Levemir Inj) 8 units Q12HR SQ Last administered on 06/17/16 20:50; Start 06/07/16 at 09:00; Stop 06/18/16 at 15:09; Status DC IV Flush (NS Flush) 2 ml UNSCH PRN IV FLUSH FLUSH AFTER USING IV ACCESS Last administered on 06/08/16 14:37; Start 06/07/16 at 06:45; Stop 06/09/16 at 15:31 ; Status DC IV Flush (NS Flush) 2 ml BID IV FLUSH Last administered on 06/08/16 20:40; Start 06/07/16 at 09:00; Stop 06/09/16 at 15:31; Status DC Acetaminophen (Tylenol) 650 mg Q6H PRN PO PAIN 1-10 AND/OR FEVER >101F; Start 06/07/16 at 06:45; Stop 06/18/16 at 14:36; Status DC Acetaminophen/ Hydrocodone Bitart ([place] 5-325 Mg) 1 tab Q4H PRN PO PAIN SCALE 1 TO 5 Last administered on 06/08/16 22:35; Start 06/07/16 at 06:45; Stop 06/09/16 at 09:28; Status DC Morphine Sulfate (Morphine Inj) 2 mg Q2H PRN IV PAIN SCALE 6 TO 10 Last administered on 06/11/16 17:05; Start 06/07/16 at 06:45; Stop 06/11/16 at 18:26 ; Status DC Pantoprazole Sodium (Protonix) 40 mg DAILY PO Last administered on 06/16/16 08 :40; Start 06/07/16 at 09:00; Stop 06/16/16 at 10:09; Status DC Artificial Tears (Tears Naturale Opth Soln) 1 drop TID EACH EYE Last administered on 06/19/16 09:00; Start 06/07/16 at 09:00 Ondansetron HCl (Zofran Inj) 4 mg Q6H PRN IV NAUSEA OR VOMITING; Start at 06:45; Stop 06/07/16 at 06:54; Status DC Docusate Sodium (Colace) 100 mg BID PO Last administered on 06/15/16 20:14; Start 06/07/16 at 09:00; Stop 06/19/16 at 09:14; Status DC Sennosides (Senokot) 17.2 mg Q12H PRN PO CONSTIPATION; Start 06/07/16 at 06:45 ; Stop 06/19/16 at 09:14; Status DC Albuterol/ Ipratropium (Duoneb Neb) 1 ampule Q6HR NEB INH Last administered on 06/11/16 07:43; Start 06/07/16 at 10:00; Stop 06/11/16 at 10:00; Status DC Miscellaneous Information 1 Q361D XX ; Start 06/07/16 at 06:45; Stop 06/07/16 at 06:54; Status DC Chlorhexidine Gluconate (Chlorhexidine 2% Cloth) 3 pack Taper DAILY@04 TOP ; Start 06/08/16 at 04:00; Stop 06/08/16 at 04:00; Status DC Chlorhexidine Gluconate (Chlorhexidine 2% Cloth) 3 pack UNSCH PRN TOP HYGIENIC CARE; Start 06/07/16 at 06:45; Stop 06/07/16 at 06:54; Status DC Linezolid (Zyvox) 600 mg Q12HR PO Last administered on 06/19/16 08:35; Start 06/07/16 at 21:00; Stop 06/19/16 at 13:48; Status DC Acetylcysteine 600 mg 600 mg BID PO Last administered on 06/08/16 20:40; Start 06/07/16 at 21:00; Stop 06/09/16 at 09:01; Status DC Sodium Bicarbonate/ Sterile Water (Sodium Bicarbonate 8.4% Inj/Sterile Water For Inj) 1,000 ml @ 100 mls/hr Q10H IV Last administered on 06/07/16 14:49; Start 06/07/16 at 15:00; Stop 06/08/16 at 00:59; Status DC Iohexol (Omnipaque 350 Inj) 50 ml STK-MED ONCE IV ; Start 06/07/16 at 15:22; Stop 06/07/16 at 15:29; Status DC Heparin Sodium (Porcine) (Heparin Inj) 5,000 units UNSCH PRN IV APTT LESS THAN 25; Start 06/08/16 at 15:15; Stop 06/16/16 at 09:25; Status DC Heparin Sodium (Porcine) 2500 units 2,500 units UNSCH PRN IV APTT 25 TO 39; Start 06/08/16 at 15:15; Stop 06/16/16 at 09:25; Status DC Heparin Sodium/ Dextrose 250 ml @ 0 mls/hr TITRATE IV Last administered on 06/15 20:17; Start 06/08/16 at 09:15; Stop 06/16/16 at 09:25; Status DC Sodium Chloride (NS 1000 ml Inj) 1,000 ml @ 50 mls/hr Q20H IV Last administered on 06/09/16 09:30; Start 06/09/16 at 10:00; Stop 06/10/16 at 07:45 ; Status DC Acetaminophen/ Hydrocodone Bitart 2 tab 2 tab Q4H PRN PO PAIN SCALE 6 TO 10 Last administered on 06/17/16 15:25; Start 06/09/16 at 10:45; Stop 06/18/16 at 14:35; Status DC Heparin Sodium/ Sodium Chloride (Heparin-NS/Pf Inj) 500 ml @ As Directed STK- MED ONCE .ROUTE Last administered on 06/09/16 13:07; Start 06/09/16 at 13:07; Stop 06/09/16 at 13:08; Status DC Midazolam HCl (Versed Inj) 2 mg STK-MED ONCE .ROUTE Last administered on 13:08; Start 06/09/16 at 13:08; Stop 06/09/16 at 13:09; Status DC Fentanyl Citrate (fentaNYL INJ) 100 mcg STK-MED ONCE .ROUTE Last administered on 06/09/16 13:08; Start 06/09/16 at 13:08; Stop 06/09/16 at 13:09; Status DC Verapamil HCl (Isoptin Inj) 5 mg STK-MED ONCE .ROUTE Last administered on 13:08; Start 06/09/16 at 13:08; Stop 06/09/16 at 13:09; Status DC Heparin Sodium (Porcine) 76985 units 10,000 units STK-MED ONCE .ROUTE Last administered on 06/09/16 13:08; Start 06/09/16 at 13:08; Stop 06/09/16 at 13:09 ; Status DC Nitroglycerin 5 ml @ As Directed STK-MED ONCE .ROUTE Last administered on 13:08; Start 06/09/16 at 13:08; Stop 06/09/16 at 13:09; Status DC Tirofiban/Sodium Chloride (Aggrastat Infusion Inj) 250 ml @ As Directed STK- MED ONCE IV Last administered on 06/09/16 14:58; Start 06/09/16 at 14:58; Stop 06/09/16 at 14:59; Status DC Aspirin (Aspirin Chew) 81 mg DAILY PO Last administered on 06/18/16 08:18; Start 06/10/16 at 09:00; Stop 06/18/16 at 15:07; Status DC IV Flush (NS Flush) 2 ml UNSCH PRN IVF FLUSH AFTER USING IV ACCESS Last administered on 06/18/16 08:18; Start 06/09/16 at 15:30; Stop 06/18/16 at 14:38 ; Status DC IV Flush (NS Flush) 2 ml BID IVF Last administered on 06/18/16 08:19; Start at 21:00; Stop 06/18/16 at 14:38; Status DC Miscellaneous Information 1 ONCE ONCE XX ; Start 06/09/16 at 15:30; Stop at 15:31; Status DC Iohexol (OMNIPAQUE 350 INJ (Principal Product Manager)) 100 ml STK-MED ONCE OTHER ; Start at 15:00; Stop 06/09/16 at 15:47; Status DC Fentanyl Citrate (fentaNYL INJ) 50 mcg ONCE ONCE IV ; Start 06/09/16 at 13:29; Stop 06/09/16 at 17:40; Status DC Midazolam HCl (Versed Inj) 2 mg ONCE ONCE IV ; Start 06/09/16 at 13:30; Stop at 17:40; Status DC Verapamil HCl (Isoptin Inj) 2.5 mg ONCE ONCE IV PUSH ; Start 06/09/16 at 15:42 ; Stop 06/09/16 at 15:43; Status Cancel Nitroglycerin (Nitroglycerin Inj) 200 mcg ONCE ONCE OTHER ; Start 06/09/16 at 18:00; Stop 06/09/16 at 18:01; Status DC Heparin Sodium (Porcine) (Heparin Inj) 2,500 units ONCE ONCE IART ; Start 06/09 at 15:42; Stop 06/09/16 at 17:49; Status DC Verapamil HCl (Isoptin Inj) 2.5 mg ONCE ONCE OTHER ; Start 06/09/16 at 18:00; Stop 06/09/16 at 18:01; Status DC Heparin Sodium (Porcine) (Heparin Inj) 5,000 units ONCE ONCE IV ; Start at 13:40; Stop 06/09/16 at 17:53; Status DC Heparin Sodium (Porcine) 2000 units 2,000 units ONCE ONCE IV ; Start 06/09/16 at 14:40; Stop 06/09/16 at 17:53; Status DC Tirofiban/Sodium Chloride 100 ml @ 1,200 mls/hr BOLUS ONCE IV ; Start at 15:05; Stop 06/09/16 at 18:06; Status DC Tirofiban/Sodium Chloride (Aggrastat Infusion Inj) 250 ml @ 18 mls/hr [id number] IV Last administered on 06/10/16 03:26; Start 06/09/16 at 15:00; Stop at 09:00; Status DC Alprazolam (Xanax) 0.5 mg Q8H PRN PO ANXIETY Last administered on 06/14/16 16: 33; Start 06/10/16 at 08:00; Stop 06/15/16 at 08:43; Status DC Nicotine (Habitrol 14 Mg Patch.24 Hr) 1 patch DAILY TD Last administered on 09:59; Start 06/10/16 at 09:00 Miscellaneous Information 1 HS TD Last administered on 06/20/16 21:00; Start 06/10/16 at 21:00 Bumetanide (Bumex Inj) 1 mg BID@09,18 IV PUSH Last administered on 06/18/16 08 :17; Start 06/10/16 at 09:00; Stop 06/19/16 at 09:14; Status DC IV Flush (NS Flush) 2 ml BID IV FLUSH Last administered on 06/20/16 21:25; Start 06/10/16 at 21:00 IV Flush 2 ml 2 ml UNSCH PRN IV FLUSH FLUSH AFTER USING IV ACCESS Last administered on 06/18/16 08:19; Start 06/10/16 at 15:30 Papaverine HCl 60 mg/Nitroglycerin 100 mcg/Diltiazem HCl 100 mg/Sodium Chloride 100.0 ml @ 0 mls/hr MARKET DIRECTOR IRRIGATION ; Start 06/10/16 at 15:30; Stop at 15:29; Status DC Cefazolin Sodium 500 mg/Sodium Chloride 505 ml @ 0 mls/hr MARKET DIRECTOR IRRIGATION ; Start 06/10/16 at 15:30; Stop 06/17/16 at 15:29; Status DC Cefazolin Sodium/ Dextrose (Ancef 2 Gm Premix) 50 ml @ 150 mls/hr MARKET DIRECTOR IV Last administered on 06/18/16 11:16; Start 06/10/16 at 15:30; Stop 06/17/16 at 15:29; Status DC Metoprolol Tartrate (Lopressor) 12.5 mg MARKET DIRECTOR PO ; Start 06/11/16 at 05:00; Stop 06/17/16 at 04:59; Status DC Chlorhexidine Gluconate 1 applic 1 applic MARKET DIRECTOR TOPICAL ; Start 06/10/16 at 15:30; Stop 06/17/16 at 15:29; Status DC Insulin Human Regular 100 units/ Sodium Chloride 101 ml @ 0 mls/hr MARKET DIRECTOR IV ; Start 06/10/16 at 15:30; Stop 06/17/16 at 15:29; Status DC Tirofiban/Sodium Chloride 2500 mcg/ Syringe / Bag 50 ml @ 600 mls/hr BOLUS ONCE IV Last administered on 06/11/16 13:01; Start 06/11/16 at 11:45; Stop at 12:30; Status DC Tirofiban/Sodium Chloride 2500 mcg/ Syringe / Bag 50 ml @ 600 mls/hr BOLUS ONCE IV ; Start 06/11/16 at 11:45; Stop 06/11/16 at 11:53; Status DC Tirofiban/Sodium Chloride (Aggrastat Infusion Inj) 250 ml @ 18.018 mls/ hr [id number] IV Last administered on 06/16/16 04:02; Start 06/11/16 at 13:00; Stop 06/16/16 at 09:26; Status DC Morphine Sulfate (Morphine Inj) 1 mg Q4H PRN IV 7-10; Start 06/11/16 at 18:30; Status Cancel Morphine Sulfate (Morphine Inj) 2 mg Q2H PRN IV PAIN SCALE 6 TO 10 Last administered on 06/18/16 03:00; Start 06/11/16 at 18:30; Stop 06/19/16 at 09:14 ; Status DC Hydromorphone HCl 0.5 mg 0.5 mg Q4H PRN IV PUSH PAIN SCALE 7-10 Last administered on 3/22/17at 05:42; Start 06/12/16 at 15:00; Stop 06/19/16 at 09:14 ; Status DC Potassium Chloride 100 ml @ 50 mls/hr Q2H PRN IV For Potassium 2.8 - 3.2 mEq/L ; Start 06/13/16 at 07:45; Stop 06/18/16 at 14:43; Status DC Potassium Chloride 100 ml @ 50 mls/hr Q2H PRN IV For Potassium 2.8 - 3.2 mEq/L ; Start 06/13/16 at 07:45; Stop 06/18/16 at 14:43; Status DC Potassium Chloride 100 ml @ 25 mls/hr UNSCH PRN IV For Potassium 3.3 - 3.5 mEq /L; Start 06/13/16 at 07:45; Stop 06/18/16 at 14:43; Status DC Potassium Chloride 100 ml @ 50 mls/hr Q2H PRN IV For Potassium 3.3 - 3.5 mEq/L ; Start 06/13/16 at 07:45; Stop 06/18/16 at 14:43; Status DC Magnesium Sulfate/ Sodium Chloride (Magnesium Sulfate Inj/NS Inj) 100 ml @ 50 mls/hr UNSCH PRN IV For Magnesium 0.9 - 1.1 mg/dL; Start 06/13/16 at 07:45; Stop 06/19/16 at 09:14; Status DC Magnesium Oxide 800 mg 800 mg UNSCH PRN PO For Magnesium 1.2 - 1.6 mg/dL; Start 06/13/16 at 07:45; Stop 06/18/16 at 14:43; Status DC Magnesium Sulfate/ Sodium Chloride (Magnesium Sulfate Inj/NS Inj) 100 ml @ 50 mls/hr UNSCH PRN IV For Magnesium 1.2 - 1.6 mg/dL; Start 06/13/16 at 07:45; Stop 06/19/16 at 09:15; Status DC Potassium Phosphate 2000 mg 2,000 mg Q4H PRN PO For Phosphorus < 2.5 mg/dL; Start 06/13/16 at 07:45; Stop 06/18/16 at 14:43; Status DC Sodium Phosphate/ Sodium Chloride (Sodium Phosphate Inj/NS 250 ml Inj) 250 ml @ 42 mls/hr UNSCH PRN IV For Phosphorus < 2.5 mg/dL; Start 06/13/16 at 07:45; Stop 06/19/16 at 09:15; Status DC Potassium Phosphate 2000 mg 2,000 mg UNSCH PRN PO/TUBE SEE LABEL COMMENTS; Start 06/13/16 at 07:45; Stop 06/18/16 at 14:43; Status DC Potassium Phosphate 30 mmol/ Sodium Chloride 260 ml @ 42 mls/hr UNSCH PRN IV SEE LABEL COMMENTS; Start 06/13/16 at 07:45; Stop 06/19/16 at 09:16; Status DC Sodium Chloride (NS 250 ml Inj) 250 ml @ 15 mls/hr ONCE ONCE IV ; Start at 06:00; Stop 06/14/16 at 22:39; Status DC Lorazepam 0.5 mg 0.5 mg Q6H PRN PO anxiety Last administered on 06/19/16 09:23 ; Start 06/15/16 at 09:00 Sodium Chloride 250 ml @ 15 mls/hr ONCE ONCE IV Last administered on 06:15; Start 06/16/16 at 06:15; Stop 06/16/16 at 22:54; Status DC Pantoprazole Sodium/Sodium Chloride (Protonix Inj/NS Inj) 100 ml @ 10 mls/hr CONTINUOUS IV Last administered on 06/20/16 06:01; Start 06/16/16 at 10:00; Stop 06/20/16 at 11:04; Status DC Propofol (Diprivan 200 Mg/20 ml Inj) 40 mg STK-MED ONCE IV ; Start 06/16/16 at 19:34; Stop 06/16/16 at 19:35; Status DC Miscellaneous Information ALL NURSING DEPARTME... UNSCH PRN XX SEE LABEL COMMENTS; Start 06/16/16 at 19:45; Stop 06/17/16 at 19:44; Status DC Diatrizoate Meglum/ Diatrizoate Sod ( Gastroesperanza Liq) 18 ml ONCE ONCE PO ; Start 06/16/16 at 21:45; Stop 06/16/16 at 21:46; Status DC Diatrizoate Meglum/ Diatrizoate Sod ( Gastroesperanza Liq) 18 ml ONCE ONCE PO Last administered on 06/17/16 06:58; Start 06/17/16 at 07:00; Stop 06/17/16 at 07:01; Status DC Heparin Sodium (Porcine) (Heparin Inj) 10,000 units STK-MED ONCE .ROUTE Last administered on 06/18/16 11:14; Start 06/18/16 at 08:24; Stop 06/18/16 at 08:25 ; Status DC Vancomycin HCl (Vancomycin Inj) 2,000 mg STK-MED ONCE .ROUTE ; Start 06/18/16 at 08:25; Stop 06/18/16 at 08:26; Status DC Heparin Sodium (Porcine) (Heparin Inj) 40,000 units STK-MED ONCE .ROUTE ; Start 06/18/16 at 08:25; Stop 06/18/16 at 08:26; Status DC Vancomycin HCl (Vancomycin Inj) 3,000 mg STK-MED ONCE .ROUTE Last administered on 06/18/16 11:18; Start 06/18/16 at 08:49; Stop 06/18/16 at 08:50; Status DC Midazolam HCl (Versed Inj) 10 mg STK-MED ONCE .ROUTE ; Start 06/18/16 at 08:57; Stop 06/18/16 at 08:58; Status DC Fentanyl Citrate 1000 mcg 1,000 mcg STK-MED ONCE .ROUTE ; Start 06/18/16 at 08: 57; Stop 06/18/16 at 08:58; Status DC Dexmedetomidine HCl 50 ml @ 0 mls/hr TITRATE IV Last administered on 06/18/16 16:10; Start 06/18/16 at 14:15; Stop 06/19/16 at 09:16; Status DC Nitroglycerin/ Dextrose 250 ml @ 0 mls/hr TITRATE IV ; Start 06/18/16 at 14:15; Stop 06/19/16 at 09:17; Status DC Dobutamine HCl/ Dextrose 250 ml @ 14.76 mls/ hr [id number] IV ; Start 06/18/16 at 14:14; Stop 06/19/16 at 09:17; Status DC Dopamine HCl/ Dextrose 500 ml @ 0 mls/hr TITRATE IV ; Start 06/18/16 at 14:15; Stop 06/19/16 at 09:18; Status DC Epinephrine HCl 4 mg/Dextrose 250 ml @ 0 mls/hr TITRATE IV ; Start 06/18/16 at 14:15; Stop 06/19/16 at 09:18; Status DC Phenylephrine HCl 40 mg/Dextrose 500 ml @ 0 mls/hr TITRATE IV ; Start 06/18/16 at 14:15; Stop 06/19/16 at 09:18; Status DC Clevidipine (Cleviprex Inj) 50 ml @ 0 mls/hr TITRATE IV ; Start 06/18/16 at 14: 15; Stop 06/19/16 at 09:19; Status DC Albumin Human 12.5 gm 12.5 gm UNSCH PRN IV SEE LABEL COMMENTS Last administered on 06/18/16 23:15; Start 06/18/16 at 14:15; Stop 06/19/16 at 09:24 ; Status DC Lactated Ringer's (Lr 1000 ml Inj) 500 ml @ 500 mls/hr Q1H PRN IV SEE LABEL COMMENTS; Start 06/18/16 at 14:14 Miscellaneous Information (Post-op Orders (for Pharmacy)) STAT ONCE OTHER ; Start 06/18/16 at 14:15; Stop 06/18/16 at 15:06; Status DC Aspirin (Aspirin Chew) 81 mg DAILY PO Last administered on 06/20/16 10:17; Start 06/19/16 at 09:00 Clopidogrel Bisulfate (Plavix) 75 mg DAILY PO Last administered on 06/19/16 08 :34; Start 06/19/16 at 09:00; Stop 06/20/16 at 18:03; Status DC Pantoprazole Sodium (Protonix) 40 mg DAILY@06 PO ; Start 06/19/16 at 06:00; Stop 06/19/16 at 06:00; Status DC Amiodarone HCl (Cordarone) 200 mg Q12HR PO Last administered on 06/20/16 21:24 ; Start 06/18/16 at 21:00 Acetaminophen (Tylenol) 650 mg Q4H PRN PO TEMPERATURE > 101 F; Start 06/18/16 at 14:15 Acetaminophen (Tylenol Supp) 650 mg Q4H PRN RECTAL TEMPERATURE > 101 F; Start 06/18/16 at 14:15; Stop 06/19/16 at 09:24; Status DC Acetaminophen (Ofirmev Inj) 1,000 mg Q6H IV Last administered on 06/19/16 08: 30; Start 06/18/16 at 15:00; Stop 06/19/16 at 09:02; Status DC Morphine Sulfate (Morphine Inj) 1 mg Q10M PRN IV PAIN SCALE 1 TO 5; Start 06/18 at 14:15; Stop 06/19/16 at 09:24; Status DC Meperidine HCl (Demerol Inj) 12.5 mg Q4H PRN IV SEE LABEL COMMENTS; Start 06/18 at 14:15; Stop 06/19/16 at 09:16; Status DC Acetaminophen/ Hydrocodone Bitart ([place] 5-325 Mg) 1 tab Q3H PRN PO PAIN SCALE 1 TO 5 Last administered on 06/19/16 02:57; Start 06/18/16 at 14:15 Acetaminophen/ Hydrocodone Bitart ([place] 5-325 Mg) 2 tab Q3H PRN PO PAIN SCALE 6 TO 10 Last administered on 06/21/16 03:54; Start 06/18/16 at 14:15 Fentanyl Citrate (fentaNYL INJ) 25 mcg Q1H PRN IV BREAKTHROUGH PAIN Last administered on 06/19/16 03:33; Start 06/18/16 at 14:15; Stop 06/19/16 at 09:24 ; Status DC Ondansetron HCl (Zofran Inj) 4 mg Q6H PRN IV PUSH NAUSEA OR VOMITING Last administered on 06/19/16 03:27; Start 06/18/16 at 14:15 Hydralazine HCl (Apresoline Inj) 10 mg Q4H PRN IV SEE LABEL COMMENTS; Start at 14:15; Stop 06/19/16 at 09:24; Status DC Metoprolol Tartrate 2.5 mg 2.5 mg Q1H PRN IV PUSH SEE LABEL COMMENTS; Start at 14:15; Stop 06/19/16 at 09:24; Status DC Potassium Chloride 100 ml @ 50 mls/hr UNSCH PRN IV SEE LABEL COMMENTS Last administered on 06/18/16 17:38; Start 06/18/16 at 14:15; Stop 06/19/16 at 09:24 ; Status DC Potassium Chloride 100 ml @ 50 mls/hr UNSCH PRN IV SEE LABEL COMMENTS; Start 06/18/16 at 14:15; Stop 06/19/16 at 09:24; Status DC Potassium Chloride (KCl 20 Meq Premix Inj) 100 ml @ 50 mls/hr UNSCH PRN IV SEE LABEL COMMENTS; Start 06/18/16 at 14:15; Stop 06/19/16 at 09:24; Status DC Potassium Chloride (KCl) 20 meq UNSCH PRN PO SEE LABEL COMMENTS; Start at 14:15; Stop 06/18/16 at 15:07; Status DC Potassium Chloride 40 meq 40 meq UNSCH PRN PO SEE LABEL COMMENTS; Start at 14:15; Stop 06/18/16 at 15:07; Status DC Magnesium Sulfate 2 gm/Sodium Chloride 104 ml @ 100 mls/hr UNSCH PRN IV SEE LABEL COMMENTS; Start 06/18/16 at 14:15; Stop 06/20/16 at 18:05; Status DC Magnesium Sulfate 2 gm/Sodium Chloride 104 ml @ 50 mls/hr UNSCH PRN IV SEE LABEL COMMENTS; Start 06/18/16 at 14:15; Stop 06/20/16 at 18:05; Status DC Calcium Chloride/ Sodium Chloride (Calcium Chloride Inj/NS Inj) 110 ml @ 100 mls/hr UNSCH PRN IV SEE LABEL COMMENTS; Start 06/18/16 at 14:15; Stop 06/19/16 at 09:25; Status DC Calcium Chloride 0.5 gm 0.5 gm UNSCH PRN IV SEE LABEL COMMENTS; Start 06/18/16 at 14:15; Stop 06/19/16 at 09:16; Status DC Insulin Human Regular/Sodium Chloride (NovoLIN R (IV INFUSION)/NS Inj) 100 ml @ 0 mls/hr TITRATE IV ; Start 06/18/16 at 14:15; Stop 06/19/16 at 09:25; Status DC Dextrose 25 ml 25 ml UNSCH PRN IV PUSH HYPOGLYCEMIA-SEE COMMENTS; Start at 14:15; Stop 06/19/16 at 09:26; Status DC Cefazolin Sodium/ Dextrose (Ancef 2 Gm Premix) 50 ml @ 100 mls/hr Q8H IV Last administered on 06/20/16 02:12; Start 06/18/16 at 18:00; Stop 06/20/16 at 02:29 ; Status DC Albuterol/ Ipratropium (Duoneb Neb) 1 ampule Q6HR NEB NEB Last administered on 06/19/16 08:55; Start 06/18/16 at 22:00; Stop 06/19/16 at 09:26; Status DC Albuterol/ Ipratropium (Duoneb Neb) 1 ampule Q2HR NEB PRN NEB WHEEZING; Start 06/18/16 at 17:00; Stop 06/19/16 at 09:26; Status DC Racepinephrine (Racepinephrine 2.25% Neb) 0.5 ml UNSCH X1 PRN NEB STRIDOR; Start 06/18/16 at 17:00; Stop 06/19/16 at 09:26; Status DC Albuterol/ Ipratropium (Duoneb Neb) 1 ampule Q6HR WHILE AWAKE NEB NEB Last administered on 06/21/16 07:19; Start 06/19/16 at 14:00; Stop 06/21/16 at 13:59 Docusate Sodium (Colace) 100 mg BID PO Last administered on 06/20/16 09:55; Start 06/19/16 at 21:00 Multivitamins/ Minerals Therapeutic (Theragran M Tab) 1 tab DAILY PO Last administered on 06/20/16 09:56; Start 06/20/16 at 09:00 Magnesium Hydroxide (Milk Of Magnesia Liq) 30 ml DAILY PO ; Start 06/19/16 at 10 :00; Stop 06/20/16 at 18:05; Status DC Bisacodyl (Dulcolax Supp) 10 mg UNSCH PRN RECTAL SEE LABEL COMMENTS; Start at 09:15; Stop 06/19/16 at 09:48; Status DC Polyethylene Glycol (Miralax) 17 gm DAILY PO ; Start 06/20/16 at 09:00 Sennosides (Senokot) 8.6 mg HS PO ; Start 06/19/16 at 21:00 Sodium Biphosphate/ Sodium Phosphate (Fleets Enema (Adult)) 133 ml UNSCH PRN RECTAL SEE LABEL COMMENTS; Start 06/19/16 at 09:15 Insulin Aspart (NovoLOG SUPPLEMENTAL SCALE) 1 02,06,10,14,18,22 SQ Last administered on 06/20/16 05:48; Start 06/19/16 at 10:00; Stop 06/20/16 at 06:01 ; Status DC Dextrose (D50w (Vial) Inj) 25 ml UNSCH PRN IV HYPOGLYCEMIA-SEE COMMENTS; Start 06/19/16 at 09:15 Glucagon (Glucagon Inj) 1 mg UNSCH PRN OTHER HYPOGLYCEMIA-SEE COMMENTS; Start 06/19/16 at 09:15 Morphine Sulfate (Morphine Inj) 2 mg Q6H PRN IV BREAKTHROUGH PAIN Last administered on 06/20/16 15:42; Start 06/19/16 at 09:30; Stop 06/20/16 at 18:03 ; Status DC Morphine Sulfate (Morphine Inj) 2 mg Q6H PRN IV BREAKTHROUGH PAIN Last administered on 06/21/16 06:37; Start 06/19/16 at 09:30 Carvedilol (Coreg) 3.125 mg Q12HR PO Last administered on 06/20/16 21:23; Start 06/20/16 at 09:00 Insulin Aspart (NovoLOG SUPPLEMENTAL SCALE) 1 ACHS SQ Last administered on 06/20 21:37; Start 06/20/16 at 11:00 Atorvastatin Calcium (Lipitor) 40 mg HS PO Last administered on 06/20/16 21:24 ; Start 06/19/16 at 21:00 Protamine Sulfate 500 mg 500 mg STK-MED ONCE IV ; Start 06/18/16 at 13:46; Stop 06/19/16 at 13:47; Status DC Sodium Chloride 300 ml @ As Directed STK-MED ONCE IV ; Start 06/18/16 at 13:46 ; Stop 06/19/16 at 13:47; Status DC Sodium Chloride 250 ml @ As Directed STK-MED ONCE IV ; Start 06/18/16 at 13:46 ; Stop 06/19/16 at 13:47; Status DC Parenteral Electrolytes 2,000 ml @ As Directed STK-MED ONCE IV ; Start at 13:46; Stop 06/19/16 at 13:47; Status DC Clevidipine (Cleviprex Inj) 50 ml @ As Directed STK-MED ONCE .ROUTE ; Start at 14:21; Stop 06/19/16 at 14:22; Status DC Pantoprazole Sodium (Protonix) 40 mg DAILY PO ; Start 06/21/16 at 09:00 Date of Removal: Jun 19, 2016 A/P Assessment and Plan A/P Chronic systolic heart failure EF 25-30% with mild LVH and diffuse hypokinesis Peripheral vascular disease - history of right femoropopliteal with in situ saphenous vein grafting with thrombectomy of popliteal artery/anterior posterior tibial arteries [address] Mayes Coronary artery disease recent PCI/drug-eluting stent to RCA/PDA 04/[address] Kan secondary to inferior STEMI Dual-chamber defibrillator placed 05/[address] Yousif. DDD/70 Hypertension Dyslipidemia Elevated troponin Stent thrombosis RCA- Severe CAD three-vessel LAD, circumflex, stented RCA- S/P CABG 06/18. Post op anemia Cardiology -Dr. Kan ff S/P left heart catheterization 06/09/16-left main 4050 percent occlusion, left circumflex 70% occlusion,thrombosed RCA Continue amiodarone for history of V. tach continue aspirin Kilo 30 mg by mouth daily for dyslipidemia. on Coreg and Norvasc S/p 2 units RBC 06/18. Recheck in am CT surgery following. Acute hypoxemic respiratory failure-resolved Wean O2 as tolerated Bronchodilator therapy every 6 hours and as needed incentive spirometry- will monitor off antibiotics- ID follow-up appreciated. Gastroesophageal reflux disease/ GIB s/p EGD with gastroparesis ADA diet. Protonix for GI prophylaxis. Colace/as needed Senokot for bowel regimen Diabetes mellitus type 2 On lispro 15 units daily at home. Sliding-scale insulin with Accu-Cheks every 4 hours to maintain euglycemia. Peripheral neuropathy secondary to diabetes Anxiety Neurontin Acetaminophen for fever [place]/morphine for pain management, [place] to 10/325mg, Dilaudid added every 4 hours when necessary for pain Acute kidney injury with underlying Chronic kidney disease stage III. Bumex was DC 06/18 will monitor renal function renal US with no hydronephrosis nephrology consulted Possible community-acquired pneumonia History of MRSA treated with Zyvox off antibiotics- ID following. Blood cultures 2, sputum and UA NGTD Influenza negative Prophylaxis - GI - Protonix - chemical prophylaxis when ok with CT surgery. Tru Francis MD Jun 21, 2016 07:55
[2016-06-21] MEDS: NICOTINE 14 MG/24 HR PATCH TD SCH (07:56)
--- NOTE | 2016-06-21 09:20 | PD.WOU.PN ---
Patient Intake Chief Complaint Bilateral heel pressure wounds with eschar Consult Requested by Reason for Consult Evaluation of the wounds Primary Care Physician No Primary Care Physician History of Present Illness 65-year-old diabetic with peripheral neuropathy recently underwent open heart surgery. When he presented to [place] he had bilateral heel pressure wounds with eschar. We've been keeping them dry and clean and offloaded. Coded Allergies: No Known Allergies (Unverified , 06/08/16) Preferred Language to Discuss: Mongolian Barriers to Learning: None Teaching Method: Discussion Vital Signs Date Time Temp Pulse Resp B/P Pulse Ox O2 Delivery O2 Flow Rate FiO2 06/21/16 07:20 93 Nasal Cannula 2.00 06/21/16 06:45 16 06/21/16 05:00 70 06/21/16 04:54 16 06/21/16 04:00 70 06/21/16 04:00 Nasal Cannula 1.00 06/21/16 03:00 70 06/21/16 03:00 98.4 70 20 115/66 91 06/21/16 02:00 70 06/21/16 01:00 70 06/21/16 00:00 70 06/21/16 00:00 Nasal Cannula 1.00 06/20/16 23:00 70 06/20/16 23:00 98.6 71 16 124/67 94 06/20/16 22:00 70 06/20/16 21:00 70 06/20/16 20:39 92 Nasal Cannula 2.00 06/20/16 20:00 91 Room Air 06/20/16 20:00 70 06/20/16 19:00 98.3 69 16 121/50 91 06/20/16 19:00 70 06/20/16 19:00 98.3 69 20 121/50 91 06/20/16 18:27 70 06/20/16 17:00 70 06/20/16 16:11 70 06/20/16 16:10 95 1.00 06/20/16 16:09 97.7 70 18 90/59 95 06/20/16 15:25 97.4 97/53 06/20/16 15:00 70 06/20/16 14:33 96/65 06/20/16 14:00 70 06/20/16 13:38 70 06/20/16 13:13 95 Nasal Cannula 1.00 06/20/16 12:05 105/68 06/20/16 12:03 117/41 06/20/16 12:00 70 06/20/16 12:00 98.0 83 119/66 95 06/20/16 11:40 119/66 06/20/16 11:38 98.0 83 17 119/66 95 06/20/16 11:00 70 06/20/16 10:00 70 Pain scale used: 0-10 numeric scale Pain score: 0 Medications Current Medications IV Flush 2 ml 2 ml UNSCH PRN IVF FLUSH AFTER USING IV ACCESS Last administered on 06/07/16 03:39; Start 06/07/16 at 02:00; Stop 06/07/16 at 04:26; Status DC Nitroglycerin/ Dextrose (Nitroglycerin-Dextrose Inj) 250 ml @ 0 mls/hr TITRATE ONCE IV Last administered on 06/07/16 02:07; Start 06/07/16 at 02:00; Stop 02/13 at 02:01; Status DC Lorazepam 0.5 mg 0.5 mg ONCE ONCE IV PUSH Last administered on 06/07/16 02:07 ; Start 06/07/16 at 02:00; Stop 06/07/16 at 02:01; Status DC Cefepime HCl 2000 mg/Sodium Chloride 100 ml @ 200 mls/hr ONCE ONCE IV Last administered on 06/07/16 05:27; Start 06/07/16 at 03:00; Stop 06/07/16 at 03:29 ; Status DC Azithromycin/ Sodium Chloride (Zithromax Inj/ NS 250 ml Inj) 250 ml @ 250 mls/ hr ONCE ONCE IV Last administered on 06/07/16 03:38; Start 06/07/16 at 03:00 ; Stop 06/07/16 at 03:59; Status DC Bumetanide (Bumex Inj) 1 mg ONCE ONCE IV PUSH Last administered on 06/07/16 03:39; Start 06/07/16 at 03:00; Stop 06/07/16 at 03:01; Status DC Lorazepam (Ativan Inj) 0.5 mg ONCE ONCE IV PUSH Last administered on 03:39; Start 06/07/16 at 03:00; Stop 06/07/16 at 03:01; Status DC Aspirin (Aspirin Chew) 162 mg ONCE ONCE CHEW Last administered on 06/07/16 03 :45; Start 06/07/16 at 03:45; Stop 06/07/16 at 03:46; Status DC IV Flush (NS Flush) 2 ml UNSCH PRN IV FLUSH FLUSH AFTER USING IV ACCESS; Start 06/07/16 at 04:30; Stop 06/07/16 at 06:54; Status DC IV Flush (NS Flush) 2 ml BID IV FLUSH ; Start 06/07/16 at 09:00; Stop 06/07/16 at 09:00; Status DC Acetaminophen (Tylenol) 650 mg Q6H PRN PO PAIN 1-10 AND/OR FEVER >101F; Start 06/07/16 at 04:30; Stop 06/07/16 at 06:54; Status DC Pantoprazole Sodium (Protonix Inj) 40 mg DAILY IV ; Start 06/07/16 at 09:00; Stop 06/07/16 at 09:00; Status DC Ondansetron HCl (Zofran Inj) 4 mg Q6H PRN IV NAUSEA OR VOMITING; Start at 04:30; Stop 06/18/16 at 14:47; Status DC Albuterol Sulfate (Albuterol Neb) 2.5 mg Q2HR NEB PRN INH SOB/WHEEZING; Start 06/07/16 at 04:30; Stop 06/18/16 at 16:15; Status DC Enoxaparin Sodium (Lovenox Inj) 40 mg Q24H SQ Last administered on 06/07/16 11 :16; Start 06/07/16 at 09:00; Stop 06/08/16 at 09:08; Status DC Miscellaneous Information 1 Q361D XX ; Start 06/07/16 at 04:30; Stop 06/19/16 at 09:14; Status DC Chlorhexidine Gluconate (Chlorhexidine 2% Cloth) Taper DAILY@04 TOP Last administered on 06/18/16 04:00; Start 06/08/16 at 04:00; Stop 06/19/16 at 09:14 ; Status DC Chlorhexidine Gluconate (Chlorhexidine 2% Cloth) 3 pack UNSCH PRN TOP HYGIENIC CARE; Start 06/07/16 at 04:30; Stop 06/19/16 at 09:14; Status DC Bumetanide 1 mg 1 mg Q12H IV PUSH Last administered on 06/09/16 02:44; Start 06/07/16 at 15:00; Stop 06/09/16 at 09:05; Status DC Cefepime HCl 2000 mg/Sodium Chloride 100 ml @ 200 mls/hr Q12H IV Last administered on 06/19/16 02:49; Start 06/07/16 at 15:00; Stop 06/19/16 at 13:47 ; Status DC Azithromycin/ Sodium Chloride (Zithromax Inj/ NS 250 ml Inj) 250 ml @ 250 mls/ hr Q24H IV Last administered on 06/19/16 02:50; Start 06/08/16 at 03:00; Stop 06/19/16 at 13:48; Status DC Dextrose (D50w (Vial) Inj) 25 ml UNSCH PRN IV PUSH HYPOGLYCEMIA-SEE COMMENTS; Start 06/07/16 at 04:30; Stop 06/18/16 at 15:09; Status DC Glucagon (Glucagon Inj) 1 mg UNSCH PRN OTHER HYPOGLYCEMIA-SEE COMMENTS; Start 06/07/16 at 04:30; Stop 06/18/16 at 15:09; Status DC Insulin Aspart (NovoLOG SUPPLEMENTAL SCALE) 1 Q4HR SQ Last administered on 06/17 21:01; Start 06/07/16 at 04:30; Stop 06/18/16 at 15:09; Status DC Aspirin (Aspirin Chew) 81 mg DAILY CHEW Last administered on 06/09/16 09:38; Start 06/07/16 at 09:00; Stop 06/09/16 at 15:32; Status DC Ticagrelor (Brilinta) 90 mg BID PO Last administered on 06/11/16 08:13; Start 06/07/16 at 09:00; Stop 06/19/16 at 09:14; Status DC Carvedilol (Coreg) 6.25 mg Q12HR PO Last administered on 06/18/16 08:18; Start 06/07/16 at 09:00; Stop 06/19/16 at 09:25; Status DC Amlodipine Besylate (Norvasc) 2.5 mg DAILY PO Last administered on 06/21/16 07 :53; Start 06/07/16 at 09:00 Amiodarone HCl (Cordarone) 200 mg DAILY PO Last administered on 06/18/16 08:17 ; Start 06/07/16 at 09:00; Stop 06/18/16 at 14:37; Status DC Atorvastatin Calcium (Lipitor) 20 mg DAILY PO Last administered on 06/19/16 08 :35; Start 06/07/16 at 09:00; Stop 06/19/16 at 13:51; Status DC Gabapentin (Neurontin) 300 mg TID PO Last administered on 06/21/16 07:52; Start 06/07/16 at 09:00 Insulin Detemir (Levemir Inj) 8 units Q12HR SQ Last administered on 06/17/16 20:50; Start 06/07/16 at 09:00; Stop 06/18/16 at 15:09; Status DC IV Flush (NS Flush) 2 ml UNSCH PRN IV FLUSH FLUSH AFTER USING IV ACCESS Last administered on 06/08/16 14:37; Start 06/07/16 at 06:45; Stop 06/09/16 at 15:31 ; Status DC IV Flush (NS Flush) 2 ml BID IV FLUSH Last administered on 06/08/16 20:40; Start 06/07/16 at 09:00; Stop 06/09/16 at 15:31; Status DC Acetaminophen (Tylenol) 650 mg Q6H PRN PO PAIN 1-10 AND/OR FEVER >101F; Start 06/07/16 at 06:45; Stop 06/18/16 at 14:36; Status DC Acetaminophen/ Hydrocodone Bitart (Woodruff 5-325 Mg) 1 tab Q4H PRN PO PAIN SCALE 1 TO 5 Last administered on 06/08/16 22:35; Start 06/07/16 at 06:45; Stop 06/09/16 at 09:28; Status DC Morphine Sulfate (Morphine Inj) 2 mg Q2H PRN IV PAIN SCALE 6 TO 10 Last administered on 06/11/16 17:05; Start 06/07/16 at 06:45; Stop 06/11/16 at 18:26 ; Status DC Pantoprazole Sodium (Protonix) 40 mg DAILY PO Last administered on 06/16/16 08 :40; Start 06/07/16 at 09:00; Stop 06/16/16 at 10:09; Status DC Artificial Tears (Tears Naturale Opth Soln) 1 drop TID EACH EYE Last administered on 06/19/16 09:00; Start 06/07/16 at 09:00 Ondansetron HCl (Zofran Inj) 4 mg Q6H PRN IV NAUSEA OR VOMITING; Start at 06:45; Stop 06/07/16 at 06:54; Status DC Docusate Sodium (Colace) 100 mg BID PO Last administered on 06/15/16 20:14; Start 06/07/16 at 09:00; Stop 06/19/16 at 09:14; Status DC Sennosides (Senokot) 17.2 mg Q12H PRN PO CONSTIPATION; Start 06/07/16 at 06:45 ; Stop 06/19/16 at 09:14; Status DC Albuterol/ Ipratropium (Duoneb Neb) 1 ampule Q6HR NEB INH Last administered on 06/11/16 07:43; Start 06/07/16 at 10:00; Stop 06/11/16 at 10:00; Status DC Miscellaneous Information 1 Q361D XX ; Start 06/07/16 at 06:45; Stop 06/07/16 at 06:54; Status DC Chlorhexidine Gluconate (Chlorhexidine 2% Cloth) 3 pack Taper DAILY@04 TOP ; Start 06/08/16 at 04:00; Stop 06/08/16 at 04:00; Status DC Chlorhexidine Gluconate (Chlorhexidine 2% Cloth) 3 pack UNSCH PRN TOP HYGIENIC CARE; Start 06/07/16 at 06:45; Stop 06/07/16 at 06:54; Status DC Linezolid (Zyvox) 600 mg Q12HR PO Last administered on 06/19/16 08:35; Start 06/07/16 at 21:00; Stop 06/19/16 at 13:48; Status DC Acetylcysteine 600 mg 600 mg BID PO Last administered on 06/08/16 20:40; Start 06/07/16 at 21:00; Stop 06/09/16 at 09:01; Status DC Sodium Bicarbonate/ Sterile Water (Sodium Bicarbonate 8.4% Inj/Sterile Water For Inj) 1,000 ml @ 100 mls/hr Q10H IV Last administered on 06/07/16 14:49; Start 06/07/16 at 15:00; Stop 06/08/16 at 00:59; Status DC Iohexol (Omnipaque 350 Inj) 50 ml STK-MED ONCE IV ; Start 06/07/16 at 15:22; Stop 06/07/16 at 15:29; Status DC Heparin Sodium (Porcine) (Heparin Inj) 5,000 units UNSCH PRN IV APTT LESS THAN 25; Start 06/08/16 at 15:15; Stop 06/16/16 at 09:25; Status DC Heparin Sodium (Porcine) 2500 units 2,500 units UNSCH PRN IV APTT 25 TO 39; Start 06/08/16 at 15:15; Stop 06/16/16 at 09:25; Status DC Heparin Sodium/ Dextrose 250 ml @ 0 mls/hr TITRATE IV Last administered on 06/15 20:17; Start 06/08/16 at 09:15; Stop 06/16/16 at 09:25; Status DC Sodium Chloride (NS 1000 ml Inj) 1,000 ml @ 50 mls/hr Q20H IV Last administered on 06/09/16 09:30; Start 06/09/16 at 10:00; Stop 06/10/16 at 07:45 ; Status DC Acetaminophen/ Hydrocodone Bitart 2 tab 2 tab Q4H PRN PO PAIN SCALE 6 TO 10 Last administered on 06/17/16 15:25; Start 06/09/16 at 10:45; Stop 06/18/16 at 14:35; Status DC Heparin Sodium/ Sodium Chloride (Heparin-NS/Pf Inj) 500 ml @ As Directed STK- MED ONCE .ROUTE Last administered on 06/09/16 13:07; Start 06/09/16 at 13:07; Stop 06/09/16 at 13:08; Status DC Midazolam HCl (Versed Inj) 2 mg STK-MED ONCE .ROUTE Last administered on 13:08; Start 06/09/16 at 13:08; Stop 06/09/16 at 13:09; Status DC Fentanyl Citrate (fentaNYL INJ) 100 mcg STK-MED ONCE .ROUTE Last administered on 06/09/16 13:08; Start 06/09/16 at 13:08; Stop 06/09/16 at 13:09; Status DC Verapamil HCl (Isoptin Inj) 5 mg STK-MED ONCE .ROUTE Last administered on 13:08; Start 06/09/16 at 13:08; Stop 06/09/16 at 13:09; Status DC Heparin Sodium (Porcine) 45891 units 10,000 units STK-MED ONCE .ROUTE Last administered on 06/09/16 13:08; Start 06/09/16 at 13:08; Stop 06/09/16 at 13:09 ; Status DC Nitroglycerin 5 ml @ As Directed STK-MED ONCE .ROUTE Last administered on 13:08; Start 06/09/16 at 13:08; Stop 06/09/16 at 13:09; Status DC Tirofiban/Sodium Chloride (Aggrastat Infusion Inj) 250 ml @ As Directed STK- MED ONCE IV Last administered on 06/09/16 14:58; Start 06/09/16 at 14:58; Stop 06/09/16 at 14:59; Status DC Aspirin (Aspirin Chew) 81 mg DAILY PO Last administered on 06/18/16 08:18; Start 06/10/16 at 09:00; Stop 06/18/16 at 15:07; Status DC IV Flush (NS Flush) 2 ml UNSCH PRN IVF FLUSH AFTER USING IV ACCESS Last administered on 06/18/16 08:18; Start 06/09/16 at 15:30; Stop 06/18/16 at 14:38 ; Status DC IV Flush (NS Flush) 2 ml BID IVF Last administered on 06/18/16 08:19; Start at 21:00; Stop 06/18/16 at 14:38; Status DC Miscellaneous Information 1 ONCE ONCE XX ; Start 06/09/16 at 15:30; Stop at 15:31; Status DC Iohexol (OMNIPAQUE 350 INJ (Vending Machine Assembler)) 100 ml STK-MED ONCE OTHER ; Start at 15:00; Stop 06/09/16 at 15:47; Status DC Fentanyl Citrate (fentaNYL INJ) 50 mcg ONCE ONCE IV ; Start 06/09/16 at 13:29; Stop 06/09/16 at 17:40; Status DC Midazolam HCl (Versed Inj) 2 mg ONCE ONCE IV ; Start 06/09/16 at 13:30; Stop at 17:40; Status DC Verapamil HCl (Isoptin Inj) 2.5 mg ONCE ONCE IV PUSH ; Start 06/09/16 at 15:42 ; Stop 06/09/16 at 15:43; Status Cancel Nitroglycerin (Nitroglycerin Inj) 200 mcg ONCE ONCE OTHER ; Start 06/09/16 at 18:00; Stop 06/09/16 at 18:01; Status DC Heparin Sodium (Porcine) (Heparin Inj) 2,500 units ONCE ONCE IART ; Start 06/09 at 15:42; Stop 06/09/16 at 17:49; Status DC Verapamil HCl (Isoptin Inj) 2.5 mg ONCE ONCE OTHER ; Start 06/09/16 at 18:00; Stop 06/09/16 at 18:01; Status DC Heparin Sodium (Porcine) (Heparin Inj) 5,000 units ONCE ONCE IV ; Start at 13:40; Stop 06/09/16 at 17:53; Status DC Heparin Sodium (Porcine) 2000 units 2,000 units ONCE ONCE IV ; Start 06/09/16 at 14:40; Stop 06/09/16 at 17:53; Status DC Tirofiban/Sodium Chloride 100 ml @ 1,200 mls/hr BOLUS ONCE IV ; Start at 15:05; Stop 06/09/16 at 18:06; Status DC Tirofiban/Sodium Chloride (Aggrastat Infusion Inj) 250 ml @ 18 mls/hr [id number] IV Last administered on 06/10/16 03:26; Start 06/09/16 at 15:00; Stop at 09:00; Status DC Alprazolam (Xanax) 0.5 mg Q8H PRN PO ANXIETY Last administered on 06/14/16 16: 33; Start 06/10/16 at 08:00; Stop 06/15/16 at 08:43; Status DC Nicotine (Habitrol 14 Mg Patch.24 Hr) 1 patch DAILY TD Last administered on 07:56; Start 06/10/16 at 09:00 Miscellaneous Information 1 HS TD Last administered on 06/20/16 21:00; Start 06/10/16 at 21:00 Bumetanide (Bumex Inj) 1 mg BID@09,18 IV PUSH Last administered on 06/18/16 08 :17; Start 06/10/16 at 09:00; Stop 06/19/16 at 09:14; Status DC IV Flush (NS Flush) 2 ml BID IV FLUSH Last administered on 06/21/16 07:53; Start 06/10/16 at 21:00 IV Flush 2 ml 2 ml UNSCH PRN IV FLUSH FLUSH AFTER USING IV ACCESS Last administered on 06/18/16 08:19; Start 06/10/16 at 15:30 Papaverine HCl 60 mg/Nitroglycerin 100 mcg/Diltiazem HCl 100 mg/Sodium Chloride 100.0 ml @ 0 mls/hr SOLUTIONS DELIVERY CONSULTANT IRRIGATION ; Start 06/10/16 at 15:30; Stop at 15:29; Status DC Cefazolin Sodium 500 mg/Sodium Chloride 505 ml @ 0 mls/hr SOLUTIONS DELIVERY CONSULTANT IRRIGATION ; Start 06/10/16 at 15:30; Stop 06/17/16 at 15:29; Status DC Cefazolin Sodium/ Dextrose (Ancef 2 Gm Premix) 50 ml @ 150 mls/hr SOLUTIONS DELIVERY CONSULTANT IV Last administered on 06/18/16 11:16; Start 06/10/16 at 15:30; Stop 06/17/16 at 15:29; Status DC Metoprolol Tartrate (Lopressor) 12.5 mg SOLUTIONS DELIVERY CONSULTANT PO ; Start 06/11/16 at 05:00; Stop 06/17/16 at 04:59; Status DC Chlorhexidine Gluconate 1 applic 1 applic SOLUTIONS DELIVERY CONSULTANT TOPICAL ; Start 06/10/16 at 15:30; Stop 06/17/16 at 15:29; Status DC Insulin Human Regular 100 units/ Sodium Chloride 101 ml @ 0 mls/hr SOLUTIONS DELIVERY CONSULTANT IV ; Start 06/10/16 at 15:30; Stop 06/17/16 at 15:29; Status DC Tirofiban/Sodium Chloride 2500 mcg/ Syringe / Bag 50 ml @ 600 mls/hr BOLUS ONCE IV Last administered on 06/11/16 13:01; Start 06/11/16 at 11:45; Stop at 12:30; Status DC Tirofiban/Sodium Chloride 2500 mcg/ Syringe / Bag 50 ml @ 600 mls/hr BOLUS ONCE IV ; Start 06/11/16 at 11:45; Stop 06/11/16 at 11:53; Status DC Tirofiban/Sodium Chloride (Aggrastat Infusion Inj) 250 ml @ 18.018 mls/ hr [id number] IV Last administered on 06/16/16 04:02; Start 06/11/16 at 13:00; Stop 06/16/16 at 09:26; Status DC Morphine Sulfate (Morphine Inj) 1 mg Q4H PRN IV 7-10; Start 06/11/16 at 18:30; Status Cancel Morphine Sulfate (Morphine Inj) 2 mg Q2H PRN IV PAIN SCALE 6 TO 10 Last administered on 06/18/16 03:00; Start 06/11/16 at 18:30; Stop 06/19/16 at 09:14 ; Status DC Hydromorphone HCl 0.5 mg 0.5 mg Q4H PRN IV PUSH PAIN SCALE 7-10 Last administered on 06/18/16 05:42; Start 06/12/16 at 15:00; Stop 06/19/16 at 09:14 ; Status DC Potassium Chloride 100 ml @ 50 mls/hr Q2H PRN IV For Potassium 2.8 - 3.2 mEq/L ; Start 06/13/16 at 07:45; Stop 06/18/16 at 14:43; Status DC Potassium Chloride 100 ml @ 50 mls/hr Q2H PRN IV For Potassium 2.8 - 3.2 mEq/L ; Start 06/13/16 at 07:45; Stop 06/18/16 at 14:43; Status DC Potassium Chloride 100 ml @ 25 mls/hr UNSCH PRN IV For Potassium 3.3 - 3.5 mEq /L; Start 06/13/16 at 07:45; Stop 06/18/16 at 14:43; Status DC Potassium Chloride 100 ml @ 50 mls/hr Q2H PRN IV For Potassium 3.3 - 3.5 mEq/L ; Start 06/13/16 at 07:45; Stop 06/18/16 at 14:43; Status DC Magnesium Sulfate/ Sodium Chloride (Magnesium Sulfate Inj/NS Inj) 100 ml @ 50 mls/hr UNSCH PRN IV For Magnesium 0.9 - 1.1 mg/dL; Start 06/13/16 at 07:45; Stop 06/19/16 at 09:14; Status DC Magnesium Oxide 800 mg 800 mg UNSCH PRN PO For Magnesium 1.2 - 1.6 mg/dL; Start 06/13/16 at 07:45; Stop 06/18/16 at 14:43; Status DC Magnesium Sulfate/ Sodium Chloride (Magnesium Sulfate Inj/NS Inj) 100 ml @ 50 mls/hr UNSCH PRN IV For Magnesium 1.2 - 1.6 mg/dL; Start 06/13/16 at 07:45; Stop 06/19/16 at 09:15; Status DC Potassium Phosphate 2000 mg 2,000 mg Q4H PRN PO For Phosphorus < 2.5 mg/dL; Start 06/13/16 at 07:45; Stop 06/18/16 at 14:43; Status DC Sodium Phosphate/ Sodium Chloride (Sodium Phosphate Inj/NS 250 ml Inj) 250 ml @ 42 mls/hr UNSCH PRN IV For Phosphorus < 2.5 mg/dL; Start 06/13/16 at 07:45; Stop 06/19/16 at 09:15; Status DC Potassium Phosphate 2000 mg 2,000 mg UNSCH PRN PO/TUBE SEE LABEL COMMENTS; Start 06/13/16 at 07:45; Stop 06/18/16 at 14:43; Status DC Potassium Phosphate 30 mmol/ Sodium Chloride 260 ml @ 42 mls/hr UNSCH PRN IV SEE LABEL COMMENTS; Start 06/13/16 at 07:45; Stop 06/19/16 at 09:16; Status DC Sodium Chloride (NS 250 ml Inj) 250 ml @ 15 mls/hr ONCE ONCE IV ; Start at 06:00; Stop 06/14/16 at 22:39; Status DC Lorazepam 0.5 mg 0.5 mg Q6H PRN PO anxiety Last administered on 06/19/16 09:23 ; Start 06/15/16 at 09:00 Sodium Chloride 250 ml @ 15 mls/hr ONCE ONCE IV Last administered on 06:15; Start 06/16/16 at 06:15; Stop 06/16/16 at 22:54; Status DC Pantoprazole Sodium/Sodium Chloride (Protonix Inj/NS Inj) 100 ml @ 10 mls/hr CONTINUOUS IV Last administered on 06/20/16 06:01; Start 06/16/16 at 10:00; Stop 06/20/16 at 11:04; Status DC Propofol (Diprivan 200 Mg/20 ml Inj) 40 mg STK-MED ONCE IV ; Start 06/16/16 at 19:34; Stop 06/16/16 at 19:35; Status DC Miscellaneous Information ALL NURSING DEPARTME... UNSCH PRN XX SEE LABEL COMMENTS; Start 06/16/16 at 19:45; Stop 06/17/16 at 19:44; Status DC Diatrizoate Meglum/ Diatrizoate Sod (Md Chris Trotter) 18 ml ONCE ONCE PO ; Start 06/16/16 at 21:45; Stop 06/16/16 at 21:46; Status DC Diatrizoate Meglum/ Diatrizoate Sod (Md Chris Trotter) 18 ml ONCE ONCE PO Last administered on 06/17/16 06:58; Start 06/17/16 at 07:00; Stop 06/17/16 at 07:01; Status DC Heparin Sodium (Porcine) (Heparin Inj) 10,000 units STK-MED ONCE .ROUTE Last administered on 06/18/16 11:14; Start 06/18/16 at 08:24; Stop 06/18/16 at 08:25 ; Status DC Vancomycin HCl (Vancomycin Inj) 2,000 mg STK-MED ONCE .ROUTE ; Start 06/18/16 at 08:25; Stop 06/18/16 at 08:26; Status DC Heparin Sodium (Porcine) (Heparin Inj) 40,000 units STK-MED ONCE .ROUTE ; Start 06/18/16 at 08:25; Stop 06/18/16 at 08:26; Status DC Vancomycin HCl (Vancomycin Inj) 3,000 mg STK-MED ONCE .ROUTE Last administered on 06/18/16 11:18; Start 06/18/16 at 08:49; Stop 06/18/16 at 08:50; Status DC Midazolam HCl (Versed Inj) 10 mg STK-MED ONCE .ROUTE ; Start 06/18/16 at 08:57; Stop 06/18/16 at 08:58; Status DC Fentanyl Citrate 1000 mcg 1,000 mcg STK-MED ONCE .ROUTE ; Start 06/18/16 at 08: 57; Stop 06/18/16 at 08:58; Status DC Dexmedetomidine HCl 50 ml @ 0 mls/hr TITRATE IV Last administered on 06/18/16 16:10; Start 06/18/16 at 14:15; Stop 06/19/16 at 09:16; Status DC Nitroglycerin/ Dextrose 250 ml @ 0 mls/hr TITRATE IV ; Start 06/18/16 at 14:15; Stop 06/19/16 at 09:17; Status DC Dobutamine HCl/ Dextrose 250 ml @ 14.76 mls/ hr [id number] IV ; Start 06/18/16 at 14:14; Stop 06/19/16 at 09:17; Status DC Dopamine HCl/ Dextrose 500 ml @ 0 mls/hr TITRATE IV ; Start 06/18/16 at 14:15; Stop 06/19/16 at 09:18; Status DC Epinephrine HCl 4 mg/Dextrose 250 ml @ 0 mls/hr TITRATE IV ; Start 06/18/16 at 14:15; Stop 06/19/16 at 09:18; Status DC Phenylephrine HCl 40 mg/Dextrose 500 ml @ 0 mls/hr TITRATE IV ; Start 06/18/16 at 14:15; Stop 06/19/16 at 09:18; Status DC Clevidipine (Cleviprex Inj) 50 ml @ 0 mls/hr TITRATE IV ; Start 06/18/16 at 14: 15; Stop 06/19/16 at 09:19; Status DC Albumin Human 12.5 gm 12.5 gm UNSCH PRN IV SEE LABEL COMMENTS Last administered on 06/18/16 23:15; Start 06/18/16 at 14:15; Stop 06/19/16 at 09:24 ; Status DC Lactated Ringer's (Lr 1000 ml Inj) 500 ml @ 500 mls/hr Q1H PRN IV SEE LABEL COMMENTS; Start 06/18/16 at 14:14 Miscellaneous Information (Post-op Orders (for Pharmacy)) STAT ONCE OTHER ; Start 06/18/16 at 14:15; Stop 06/18/16 at 15:06; Status DC Aspirin (Aspirin Chew) 81 mg DAILY PO Last administered on 06/21/16 07:53; Start 06/19/16 at 09:00 Clopidogrel Bisulfate (Plavix) 75 mg DAILY PO Last administered on 06/19/16 08 :34; Start 06/19/16 at 09:00; Stop 06/20/16 at 18:03; Status DC Pantoprazole Sodium (Protonix) 40 mg DAILY@06 PO ; Start 06/19/16 at 06:00; Stop 06/19/16 at 06:00; Status DC Amiodarone HCl (Cordarone) 200 mg Q12HR PO Last administered on 06/21/16 07:53 ; Start 06/18/16 at 21:00 Acetaminophen (Tylenol) 650 mg Q4H PRN PO TEMPERATURE > 101 F; Start 06/18/16 at 14:15 Acetaminophen (Tylenol Supp) 650 mg Q4H PRN RECTAL TEMPERATURE > 101 F; Start 06/18/16 at 14:15; Stop 06/19/16 at 09:24; Status DC Acetaminophen (Ofirmev Inj) 1,000 mg Q6H IV Last administered on 06/19/16 08: 30; Start 06/18/16 at 15:00; Stop 06/19/16 at 09:02; Status DC Morphine Sulfate (Morphine Inj) 1 mg Q10M PRN IV PAIN SCALE 1 TO 5; Start 06/18 at 14:15; Stop 06/19/16 at 09:24; Status DC Meperidine HCl (Demerol Inj) 12.5 mg Q4H PRN IV SEE LABEL COMMENTS; Start 06/18 at 14:15; Stop 06/19/16 at 09:16; Status DC Acetaminophen/ Hydrocodone Bitart (Woodruff 5-325 Mg) 1 tab Q3H PRN PO PAIN SCALE 1 TO 5 Last administered on 06/19/16 02:57; Start 06/18/16 at 14:15 Acetaminophen/ Hydrocodone Bitart (Woodruff 5-325 Mg) 2 tab Q3H PRN PO PAIN SCALE 6 TO 10 Last administered on 06/21/16 07:55; Start 06/18/16 at 14:15 Fentanyl Citrate (fentaNYL INJ) 25 mcg Q1H PRN IV BREAKTHROUGH PAIN Last administered on 06/19/16 03:33; Start 06/18/16 at 14:15; Stop 06/19/16 at 09:24 ; Status DC Ondansetron HCl (Zofran Inj) 4 mg Q6H PRN IV PUSH NAUSEA OR VOMITING Last administered on 06/19/16 03:27; Start 06/18/16 at 14:15 Hydralazine HCl (Apresoline Inj) 10 mg Q4H PRN IV SEE LABEL COMMENTS; Start at 14:15; Stop 06/19/16 at 09:24; Status DC Metoprolol Tartrate 2.5 mg 2.5 mg Q1H PRN IV PUSH SEE LABEL COMMENTS; Start at 14:15; Stop 06/19/16 at 09:24; Status DC Potassium Chloride 100 ml @ 50 mls/hr UNSCH PRN IV SEE LABEL COMMENTS Last administered on 06/18/16 17:38; Start 06/18/16 at 14:15; Stop 06/19/16 at 09:24 ; Status DC Potassium Chloride 100 ml @ 50 mls/hr UNSCH PRN IV SEE LABEL COMMENTS; Start 06/18/16 at 14:15; Stop 06/19/16 at 09:24; Status DC Potassium Chloride (KCl 20 Meq Premix Inj) 100 ml @ 50 mls/hr UNSCH PRN IV SEE LABEL COMMENTS; Start 06/18/16 at 14:15; Stop 06/19/16 at 09:24; Status DC Potassium Chloride (KCl) 20 meq UNSCH PRN PO SEE LABEL COMMENTS; Start at 14:15; Stop 06/18/16 at 15:07; Status DC Potassium Chloride 40 meq 40 meq UNSCH PRN PO SEE LABEL COMMENTS; Start at 14:15; Stop 06/18/16 at 15:07; Status DC Magnesium Sulfate 2 gm/Sodium Chloride 104 ml @ 100 mls/hr UNSCH PRN IV SEE LABEL COMMENTS; Start 06/18/16 at 14:15; Stop 06/20/16 at 18:05; Status DC Magnesium Sulfate 2 gm/Sodium Chloride 104 ml @ 50 mls/hr UNSCH PRN IV SEE LABEL COMMENTS; Start 06/18/16 at 14:15; Stop 06/20/16 at 18:05; Status DC Calcium Chloride/ Sodium Chloride (Calcium Chloride Inj/NS Inj) 110 ml @ 100 mls/hr UNSCH PRN IV SEE LABEL COMMENTS; Start 06/18/16 at 14:15; Stop 06/19/16 at 09:25; Status DC Calcium Chloride 0.5 gm 0.5 gm UNSCH PRN IV SEE LABEL COMMENTS; Start 06/18/16 at 14:15; Stop 06/19/16 at 09:16; Status DC Insulin Human Regular/Sodium Chloride (NovoLIN R (IV INFUSION)/NS Inj) 100 ml @ 0 mls/hr TITRATE IV ; Start 06/18/16 at 14:15; Stop 06/19/16 at 09:25; Status DC Dextrose 25 ml 25 ml UNSCH PRN IV PUSH HYPOGLYCEMIA-SEE COMMENTS; Start at 14:15; Stop 06/19/16 at 09:26; Status DC Cefazolin Sodium/ Dextrose (Ancef 2 Gm Premix) 50 ml @ 100 mls/hr Q8H IV Last administered on 06/20/16 02:12; Start 06/18/16 at 18:00; Stop 06/20/16 at 02:29 ; Status DC Albuterol/ Ipratropium (Duoneb Neb) 1 ampule Q6HR NEB NEB Last administered on 06/19/16 08:55; Start 06/18/16 at 22:00; Stop 06/19/16 at 09:26; Status DC Albuterol/ Ipratropium (Duoneb Neb) 1 ampule Q2HR NEB PRN NEB WHEEZING; Start 06/18/16 at 17:00; Stop 06/19/16 at 09:26; Status DC Racepinephrine (Racepinephrine 2.25% Neb) 0.5 ml UNSCH X1 PRN NEB STRIDOR; Start 06/18/16 at 17:00; Stop 06/19/16 at 09:26; Status DC Albuterol/ Ipratropium (Duoneb Neb) 1 ampule Q6HR WHILE AWAKE NEB NEB Last administered on 06/21/16 07:19; Start 06/19/16 at 14:00; Stop 06/21/16 at 13:59 Docusate Sodium (Colace) 100 mg BID PO Last administered on 06/20/16 09:55; Start 06/19/16 at 21:00 Multivitamins/ Minerals Therapeutic (Theragran M Tab) 1 tab DAILY PO Last administered on 06/21/16 07:52; Start 06/20/16 at 09:00 Magnesium Hydroxide (Milk Of Magnesia Liq) 30 ml DAILY PO ; Start 06/19/16 at 10 :00; Stop 06/20/16 at 18:05; Status DC Bisacodyl (Dulcolax Supp) 10 mg UNSCH PRN RECTAL SEE LABEL COMMENTS; Start at 09:15; Stop 06/19/16 at 09:48; Status DC Polyethylene Glycol (Miralax) 17 gm DAILY PO ; Start 06/20/16 at 09:00 Sennosides (Senokot) 8.6 mg HS PO ; Start 06/19/16 at 21:00 Sodium Biphosphate/ Sodium Phosphate (Fleets Enema (Adult)) 133 ml UNSCH PRN RECTAL SEE LABEL COMMENTS; Start 06/19/16 at 09:15 Insulin Aspart (NovoLOG SUPPLEMENTAL SCALE) 1 02,06,10,14,18,22 SQ Last administered on 06/20/16 05:48; Start 06/19/16 at 10:00; Stop 06/20/16 at 06:01 ; Status DC Dextrose (D50w (Vial) Inj) 25 ml UNSCH PRN IV HYPOGLYCEMIA-SEE COMMENTS; Start 06/19/16 at 09:15 Glucagon (Glucagon Inj) 1 mg UNSCH PRN OTHER HYPOGLYCEMIA-SEE COMMENTS; Start 06/19/16 at 09:15 Morphine Sulfate (Morphine Inj) 2 mg Q6H PRN IV BREAKTHROUGH PAIN Last administered on 06/20/16 15:42; Start 06/19/16 at 09:30; Stop 06/20/16 at 18:03 ; Status DC Morphine Sulfate (Morphine Inj) 2 mg Q6H PRN IV BREAKTHROUGH PAIN Last administered on 06/21/16 06:37; Start 06/19/16 at 09:30; Stop 06/21/16 at 07:49 ; Status DC Carvedilol (Coreg) 3.125 mg Q12HR PO Last administered on 06/21/16 07:53; Start 06/20/16 at 09:00 Insulin Aspart (NovoLOG SUPPLEMENTAL SCALE) 1 ACHS SQ Last administered on 06/20 21:37; Start 06/20/16 at 11:00 Atorvastatin Calcium (Lipitor) 40 mg HS PO Last administered on 06/20/16 21:24 ; Start 06/19/16 at 21:00 Protamine Sulfate 500 mg 500 mg STK-MED ONCE IV ; Start 06/18/16 at 13:46; Stop 06/19/16 at 13:47; Status DC Sodium Chloride 300 ml @ As Directed STK-MED ONCE IV ; Start 06/18/16 at 13:46 ; Stop 06/19/16 at 13:47; Status DC Sodium Chloride 250 ml @ As Directed STK-MED ONCE IV ; Start 06/18/16 at 13:46 ; Stop 06/19/16 at 13:47; Status DC Parenteral Electrolytes 2,000 ml @ As Directed STK-MED ONCE IV ; Start at 13:46; Stop 06/19/16 at 13:47; Status DC Clevidipine (Cleviprex Inj) 50 ml @ As Directed STK-MED ONCE .ROUTE ; Start at 14:21; Stop 06/19/16 at 14:22; Status DC Pantoprazole Sodium (Protonix) 40 mg DAILY PO Last administered on 06/21/16t 07 :53; Start 06/21/16 at 09:00 Hydromorphone HCl (Dilaudid Pf Inj) 1 mg Q4H PRN IV PUSH BREAKTHROUGH PAIN; Start 06/21/16 at 08:00 Past, Family & Social History Past Medical History Endocrine: REPORTS HX OF: Diabetes mellitus Cardiovascular: REPORTS HX OF: Coronary artery disease, Peripheral vascular dz Neurologic: REPORTS HX OF: Peripheral neuropathy Past Surgical History Cardiovascular: REPORTS HX OF: CABG surgery, Other cardiac surgery Review of Systems Notes No changes in his 14 point review of systems exam since he was last seen Wound Assessment Vascular Assessment R Dorsails Pedis: Palpable L Dorsails Pedis: Palpable R Posterior Tibial: Palpable L Posterior Tibial: Palpable Sensation of Left Extremity: Diminished Sensation of Right Extremity: Diminished Wound Information - Wound One Wound Location: left heel Wound Type: Pressure Ulcer Classification: Other Exudate: None Exudate Type: Other Debridement: No Fibrin Amount: None Granulation Tissue Color: None Granulation Tissue Texture: N/A Exposed: Muscle, No exposed bone, muscle, tendon Eschar: Yes Odor: No Wound Two Wound Location: right heel Wound Type: Pressure Ulcer Classification: Other Exudate: None Exudate Type: N/A Debridement: No Fibrin Amount: None Granulation Tissue Color: None Granulation Tissue Texture: N/A Exposed: No exposed bone, muscle, tendon Eschar: Yes Odor: No Lab and Radiology Results Laboratory Laboratory Tests Test 06/20/16 06/21/16 06:00 06:20 White Blood Count 14.1 TH/MM3 12.8 TH/MM3 Red Blood Count 2.63 MIL/MM3 2.70 MIL/MM3 Hemoglobin 7.5 GM/DL 8.0 GM/DL Hematocrit 23.2 % 24.0 % Mean Corpuscular Volume 88.3 FL 88.7 FL Mean Corpuscular Hemoglobin 28.7 PG 29.4 PG Mean Corpuscular Hemoglobin 32.5 % 33.2 % Concent Red Cell Distribution Width 16.7 % 16.3 % Platelet Count 110 TH/MM3 98 TH/MM3 Mean Platelet Volume 8.2 FL 8.4 FL Neutrophils (%) (Auto) 75.6 % 71.3 % Lymphocytes (%) (Auto) 14.5 % 16.0 % Monocytes (%) (Auto) 9.6 % 11.8 % Eosinophils (%) (Auto) 0.1 % 0.4 % Basophils (%) (Auto) 0.2 % 0.5 % Neutrophils # (Auto) 10.7 TH/MM3 9.1 TH/MM3 Lymphocytes # (Auto) 2.1 TH/MM3 2.0 TH/MM3 Monocytes # (Auto) 1.4 TH/MM3 1.5 TH/MM3 Eosinophils # (Auto) 0.0 TH/MM3 0.1 TH/MM3 Basophils # (Auto) 0.0 TH/MM3 0.1 TH/MM3 CBC Comment DIFF FINAL AUTO DIFF Differential Comment Laboratory Tests Test 06/20/16 06/21/16 06:00 06:20 Sodium Level 138 MEQ/L 137 MEQ/L Potassium Level 4.5 MEQ/L 4.3 MEQ/L Chloride Level 105 MEQ/L 104 MEQ/L Carbon Dioxide Level 24.0 MEQ/L 22.8 MEQ/L Anion Gap 9 MEQ/L 10 MEQ/L Blood Urea Nitrogen 42 MG/DL 51 MG/DL Creatinine 2.60 MG/DL 2.63 MG/DL Estimat Glomerular Filtration 25 ML/MIN 24 ML/MIN Rate Random Glucose 112 MG/DL 104 MG/DL Calcium Level 8.0 MG/DL 8.1 MG/DL Magnesium Level 2.4 MG/DL Radiology Last Impressions Renal Ultrasound 06/20/16 0000 Signed Impressions: Service Date/Time: Monday, June 20, 2016 19:26 - CONCLUSION: 2 cysts involving the left kidney. No hydronephrosis. Mild increase in cortical echogenicity bilaterally Florencio Gomez MD Chest X-Ray 06/19/16 0500 Signed Impressions: Service Date/Time: May 05:07 - CONCLUSION: No significant change has occurred. Kervin Jacob MD Abdomen/Pelvis CT 06/17/16 0000 Signed Impressions: Service Date/Time: Friday, June 17, 2016 11:44 - CONCLUSION: 1. Uncomplicated colonic diverticulosis. 2. 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 3. Ventral abdominal wall hernia containing only fat. 4. Enlarged prostate. 5. Small bilateral pleural effusions (right larger than left). 6. Bibasilar alveolar consolidations consistent with compressive atelectasis and/or infiltrates. 7. Cardiomegaly. 8. 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 9. Left renal cysts. 10. Degenerative changes throughout the thoracolumbar spine. South Munoz MD Lower Extremity Ultrasound 06/10/16 0000 Signed Impressions: Service Date/Time: Friday, June 10, 2016 16:44 - CONCLUSION: Venous mapping study as described. Gregorio Walsh MD Carotid Artery Ultrasound 06/10/16 0000 Signed Impressions: Service Date/Time: Friday, June 10, 2016 16:11 - CONCLUSION: Mild to moderate plaquing bilaterally with less than 50%% diameter stenosis by velocity criteria. Gregorio Walsh MD CT Angiography 06/07/16 0000 Signed Impressions: Service Date/Time: Tuesday, June 07, 2016 15:18 - CONCLUSION: 1. No pulmonary embolus. 2. Very small, bilateral pleural effusions and patchy bilateral airspace opacities. 3. Mildly enlarged mediastinal lymph nodes, nonspecific. 4. Several nodules up to 2 cm in size of the left adrenal gland, incompletely characterized but statistically most likely adenomas. There is a cyst of the left kidney. 5. Coronary artery calcification. Florencio Hamilton MD Assessment/Plan Problem List: (1) Diabetes mellitus Status: Acute (2) Peripheral vascular disease Status: Acute (3) Pressure ulcer of left heel, unstageable Status: Acute (4) Pressure ulcer of right heel, unstageable Status: Acute Additional Plans & Procedures PLAN: Continue to offload both heels at all times while in bed and chair. We'll follow as needed. Problem Qualifiers (1) Diabetes mellitus: Qualified Code: E11.8 - Type 2 diabetes mellitus with complication, with long- term current use of insulin Shan Navarro DPM Jun 21, 2016 09:20
[2016-06-21] MEDS: HYDROmorphone HCL PF 1 MG/ML VIAL IV PUSH PRN ×4 (09:32→22:48)
[2016-06-21] MEDS: SODIUM CHLORIDE 0.9% FLUSH 5 ML FLUSH IV FLUSH PRN ×2 (09:33→18:49)
--- NOTE | 2016-06-21 10:11 | MB ---
cc: RAND LYNNE MD DATE OF CONSULTATION: 06/20/2016 REASON FOR CONSULTATION: Elevated BUN and creatinine for evaluation. HISTORY OF PRESENT ILLNESS This is 65-year-old male with past medical history of ischemic heart disease, hypertension, diabetes mellitus, chronic kidney disease, peripheral vascular disease, anemia who was admitted with respiratory failure on June 07. I was called to see the patient because of elevated BUN and creatinine. The patient has creatinine of 1.5 on presentation which remains in the same range most of the time from 1.3-1.6 and now has gone up to 2.6. The patient has been followed by infectious disease and he has been followed by cardiology. He was diagnosed with elevated troponins on admission and Non-ST elevation Myocardial infarction. Later on he underwent cardiac catheterization on June 09 and was evaluated by cardiac surgery and underwent coronary artery bypass grafting x3 on June 18. Post operatively the patient has no immediate complications except his blood pressure was on the lower side and the lowest recorded was 76 x 53. He currently is sitting and eating his supper it was also found in the morning that he has not passed any urine, so a bladder scan was done and almost 400 ml of urine was there, and the patient has voided 150 since then, and he refuses to get the Cortez catheter. The patient has been followed by infectious disease and also he has been getting no antibiotic. He was initially diagnosed with pneumonia and was treated with antibiotics. PAST MEDICAL HISTORY 1. Hypertension 2. Diabetes mellitus. 3. Chronic kidney disease. 4. Ischemic heart disease. 5. Peripheral vascular disease. 6. Chronic anemia. 7. Systolic heart failure. PAST SURGICAL HISTORY: Pacemaker and defibrillator placement Cardiac catheterization Bilateral inguinal hernia repair. Right femoral popliteal revision Appendicectomy Just has coronary artery bypass grafting. REVIEW OF SYSTEMS Denies any headache, dizziness or blurring of vision. No shortness of breath. No chest pain. No palpitation. His appetite is normal as appetite is improving. He denies any nausea or vomiting. No abdominal pain. There is no history of diarrhea. He did not have any bowel movement since the surgery. Denies any dysuria, hematuria and denies any difficulty passing urine. SOCIAL HISTORY The patient has chronic smoker. There is no history of heavy alcoholism. FAMILY HISTORY: Positive for heart disease from father's side. ALLERGIES NO KNOWN DRUG ALLERGIES. MEDICATIONS Currently 1. He is on NovoLog AC and HS. 2. Colace 100 mg b.i.d. 3. Amlodipine 2.5 mg once a day 4. Nicotine patch. 5. Aspirin 81 mg once a day. 6. Multivitamin 1 tablet daily. 7. MiraLax 17 grams once a day. 8. Protonix 40 mg daily. 9. Senokot 8.6 mg q.h.s. 10. Lipitor 40 mg q.h.s. 11. Cordarone 200 mg q. 12-hour. 12. Coreg 3.125 mg q.12 h 13. Gabapentin 300 Mg t.i.d. 14. Mccall as needed. 15. Zofran as needed. PHYSICAL EXAMINATION: On examination the patient is awake, alert. He is sitting in the chair not in acute distress. VITAL SIGNS: His last blood pressure 90/59, temperature 97.7, oxygen saturation is 95% on one liter nasal cannula. HEAD, EYES, EARS, NOSE, AND THROAT: Pupils equal, round, reactive to light and accommodation. Nonicteric, . NECK: Supple. JVD is elevated. LUNGS: Patient has bilateral decreased air entry with increase in breathing. HEART: The heart is S1, S2, regular rhythm. ABDOMEN: Distended, soft, lax, there is no tenderness. EXTREMITIES: He has bilateral mild edema. INVESTIGATION: WBC count is 14.1, hemoglobin 7.5, platelet count 110, sodium 38, potassium 45, chloride 105, bicarb 24, BUN 42, creatinine 2.6, calcium 8.0, PTT 35.5. Urinalysis showing trace protein. IMAGING STUDIES The patient has chest x-ray done yesterday which shows a small left effusion. Left lower lobe infiltrate. CT scan of the abdominal pelvis was done on November 17 which shows diverticulosis aneurysm off third of 3 cm. He has abdominal wall ventral hernia, enlarged prostate, Small pleural effusion. cardiomegaly, left renal cyst, degenerative changes throughout the thoracolumbar spine. ASSESSMENT/PLAN 1. Chronic kidney disease acute kidney injury 2. History of non-ST elevation AK with post coronary bypass grafting 3. History of hypertension and now has hypotension. 4. Recent pneumonia. 5. Neuropathy. 6. Anemia. The patient has low ejection fraction of 20-25% and underwent a coronary artery bypass grafting at present he has acute kidney injury. She has chronic kidney disease or chronic kidney disease most likely he has hypertensive or renovascular disease and now the acute worsening is either because of obstructive uropathy because of a benign prostatic hypertrophy or there is a possibility of ATN from the hypotension. At present he is not in fluid overload status. The patient is started drinking fluid. I discussed with him about getting the Cortez catheter but he is refusing and he wants to try and see if he can pass the urine on his own. He is supposed to have bladder scan later in the day today and then to be evaluated if his postvoid residual is more then 300, then he should get the Cortez catheter. I will get ultrasound of the kidney, avoid any nephrotoxins. Thank you for the consultation. The patient will followed by Dr. Sr over the weekend. MD TAM Burden/anand /6:37 PM /8:58 AM
[2016-06-21 10:30] LABS: PLATELET ESTIMATE SMEAR LOW (NORMAL); PLATELET MORPHOLOGY NORMAL (NORMAL); SCAN/DIFF AUTO DIFF CONFIRMED
--- NOTE | 2016-06-21 11:53 | PD.CAR.PN ---
CVT Progress Note CVT: POD #: 3 Subjective/Hospital Course: 65-year-old male. Date of admission 06/07/2016. Past medical history includes recent heart catheterization 04/30/[address] Kan secondary to an inferior STEMI with PCI/MERE placed placed to the RCA and PDA. Left main was 30%. LAD was 40% proximal/80% diagonal. Left circumflex was 30%. EF was 20/5/30 percent. Im Thornton devices placed as well. Patient had prolonged intubation During this hospitalization developed V. tach as well and a dual-chamber defibrillator was placed by Dr. Yousif /DDD 70 on 05/27. presented this admission , admitted this admission with NSTEMI, resp failure with hypoxia , underwent cardiac cath by Dr Kan, MAGALIE to stent thrombosis of RCA 06/09 pt was on Brilinta at home PMH: CAD, with 2 prior stents by the hypertension, diabetes,'s chronic systolic heart failure EF 20-25% , , peripheral vascular disease with a right femoropopliteal in situ saphenous vein revision [address] Mayes with thrombolytic colectomy to the popliteal artery and anterior and posterior tibial arteries, 06/13 NO PAIN DURING THE NIGHT OOB with assistance on aggrastat and heparin 06/16 pt developed GI Bleed with Heme + stools HGB 7.0/ for 2 units PRBC GI consult, for EGD today on protonix gtt heparin and Aggrastat dc rescheduled for surgery on 06/17 EGD completed , gastroparesis CT abd / pelvis pending HGB stable , spoke with GI Dr Lantigua will need colonoscopy as outpt hold on restarting heparin and Aggrastat for now although GI was ok with restarting anticoagulation keep scheduled for surgery in am 06/18 1. Urgent Off-pump Coronary Artery Bypass Grafting x 3 with left internal mammary artery (WANG) to left anterior descending (LAD), reverse saphenous vein graft to OM1, reverse saphenous vein graft to the RPDA 2. Left Leg Endoscopic Vein Roland 2200cc crystalloid, 2 PRBC 750cc cell saver , EBL 1500cc had large bloody BM 06/19 extubated after surgery, on nasal cannula wants to sleep, not get OOB discussed importance if pulm toileting and getting OOB no pressors, HGB 7.[address] Langley / recheck HGB this afternoon remains on protonix gtt will transfer to stepdown 06/20 HGB 7.5/ transfuse one unit PRBC continue PPI worsening renal indices, consult Nephrology check renal US urinary retention/ per bladder scan/ refuses urinary cath " does not have the urge to void at this time " CT 130cc/ 12/ additional 120 since this am 06/21/16 No complaints. Remains anemic with increased creatinine . Objective: Vital Signs Date Time Temp Pulse Resp B/P Pulse Ox O2 Delivery O2 Flow Rate FiO2 06/21/16 10:00 70 06/21/16 09:00 70 06/21/16 08:00 70 06/21/16 08:00 94 Nasal Cannula 2.00 06/21/16 07:20 93 Nasal Cannula 2.00 06/21/16 07:00 70 06/21/16 07:00 98.5 70 20 121/60 94 06/21/16 06:45 16 06/21/16 05:00 70 06/21/16 04:54 16 06/21/16 04:00 70 06/21/16 04:00 Nasal Cannula 1.00 06/21/16 03:00 70 06/21/16 03:00 98.4 70 20 115/66 91 06/21/16 02:00 70 06/21/16 01:00 70 06/21/16 00:00 70 06/21/16 00:00 Nasal Cannula 1.00 06/20/16 23:00 70 06/20/16 23:00 98.6 71 16 124/67 94 06/20/16 22:00 70 06/20/16 21:00 70 06/20/16 20:39 92 Nasal Cannula 2.00 06/20/16 20:00 91 Room Air 06/20/16 20:00 70 06/20/16 19:00 98.3 69 16 121/50 91 06/20/16 19:00 70 06/20/16 19:00 98.3 69 20 121/50 91 06/20/16 18:27 70 06/20/16 17:00 70 06/20/16 16:11 70 06/20/16 16:10 95 1.00 06/20/16 16:09 97.7 70 18 90/59 95 06/20/16 15:25 97.4 97/53 06/20/16 15:00 70 06/20/16 14:33 96/65 06/20/16 14:00 70 06/20/16 13:38 70 06/20/16 13:13 95 Nasal Cannula 1.00 06/20/16 12:05 105/68 06/20/16 12:03 117/41 06/20/16 12:00 70 06/20/16 12:00 98.0 83 119/66 95 Labs: Laboratory Tests Test 06/21/16 06:20 White Blood Count 12.8 TH/MM3 (4.0-11.0) Red Blood Count 2.70 MIL/MM3 (4.50-5.90) Hemoglobin 8.0 GM/DL (13.0-17.0) Hematocrit 24.0 % (39.0-51.0) Mean Corpuscular Volume 88.7 FL (80.0-100.0) Mean Corpuscular Hemoglobin 29.4 PG (27.0-34.0) Mean Corpuscular Hemoglobin 33.2 % Concent (32.0-36.0) Red Cell Distribution Width 16.3 % (11.6-17.2) Platelet Count 98 TH/MM3 (150-450) Mean Platelet Volume 8.4 FL (7.0-11.0) Neutrophils (%) (Auto) 71.3 % (16.0-70.0) Lymphocytes (%) (Auto) 16.0 % (9.0-44.0) Monocytes (%) (Auto) 11.8 % (0.0-8.0) Eosinophils (%) (Auto) 0.4 % (0.0-4.0) Basophils (%) (Auto) 0.5 % (0.0-2.0) Neutrophils # (Auto) 9.1 TH/MM3 (1.8-7.7) Lymphocytes # (Auto) 2.0 TH/MM3 (1.0-4.8) Monocytes # (Auto) 1.5 TH/MM3 (0-0.9) Eosinophils # (Auto) 0.1 TH/MM3 (0-0.4) Basophils # (Auto) 0.1 TH/MM3 (0-0.2) CBC Comment AUTO DIFF Differential Comment AUTO DIFF CONFIRMED Platelet Estimate LOW (NORMAL) Platelet Morphology Comment NORMAL (NORMAL) Sodium Level 137 MEQ/L (136-145) Potassium Level 4.3 MEQ/L (3.5-5.1) Chloride Level 104 MEQ/L (98-107) Carbon Dioxide Level 22.8 MEQ/L (21.0-32.0) Anion Gap 10 MEQ/L (5-15) Blood Urea Nitrogen 51 MG/DL (7-18) Creatinine 2.63 MG/DL (0.60-1.30) Estimat Glomerular Filtration 24 ML/MIN (>89) Rate Random Glucose 104 MG/DL (74-106) Calcium Level 8.1 MG/DL (8.5-10.1) Result Diagram: 06/21/1661906/21/16619 Cardiovascular: RRR Telemetry: NSR Pulmonary: CTA GI/: NABS, NT Incision: dry and intact Edema: Chest tube output continues to be high with 190ml out since this morning - to water seal Transfuse 2 units pRBC Diurese CBC, BMP in am Encourage ambulation (1) NSTEMI (non-ST elevated myocardial infarction) (2) Coronary artery disease Plan: statin BB , ASA, statin OOB ambulate pain control pulm toileting (3) S/P CABG x 3 Plan: on ASA, BB in am , statin OOB, ambulate pulm toileting (4) Acute respiratory failure with hypoxia Plan: resolved (5) SIRS (systemic inflammatory response syndrome) Plan: improved, off antibiotics / appreciate ID for input (6) History of ventricular tachycardia (7) Chronic kidney disease, stage III (moderate) Plan: creatinine 1.61> 2.60 nephrology consult check US renal urinary retention/ refuses banda cath (8) Chronic systolic heart failure (9) Dyslipidemia Plan: statin (10) Hypertension Plan: stable (11) Peripheral vascular disease Plan: no claudia hose (12) Peripheral neuropathy (13) Pressure ulcer of left heel, unstageable Plan: podiatry following (14) Pressure ulcer of right heel, unstageable (15) Blood loss anemia Plan: s/p PRBC 06/18 monitor (16) Diabetes mellitus Plan: diabetic diet / insulin sliding scale Problem Qualifiers (1) Coronary artery disease: Qualified Code: I25.10 - Coronary artery disease involving [place] coronary artery of [place] heart, angina presence unspecified (2) Peripheral neuropathy: Qualified Code: G62.9 - Peripheral polyneuropathy (3) Diabetes mellitus: Qualified Code: E11.8 - Type 2 diabetes mellitus with complication, with long- term current use of insulin Roseline Peoples MD Jun 21, 2016 11:53
[2016-06-21] MEDS ORDERED: FUROSEMIDE 20 MG/2 ML VIAL IV ONE (12:00)
[2016-06-21] MEDS ORDERED: SODIUM CHLOR 0.9% 250 ML INJ 250 ML IV ONE (12:00)
--- NOTE | 2016-06-21 15:03 | HHI.NPPN ---
Subjective History of Present Illness 65 Year old with diabetes, CAD, ARF post CABG Objective Data Data 06/20/16 06/21/16 19:00 07:00 Intake Total 1235 ml 640 ml Output Total 575 ml 1 ml Balance 660 ml 639 ml Intake Oral 960 ml 640 ml IV Total 25 ml Packed Cells 250 ml Output Urine Total 125 ml Stool Total 1 ml Chest Tube Drainage Total 450 ml Bladder Scan Volume Amount 341 ml 447 ml # Voids 1 Vital Signs Date Time Temp Pulse Resp B/P Pulse Ox O2 Delivery O2 Flow Rate FiO2 06/21/16 14:45 97.6 70 20 95/58 96 06/21/16 14:00 70 06/21/16 13:00 70 06/21/16 12:00 70 06/21/16 12:00 96 Nasal Cannula 2.00 06/21/16 11:00 98.1 72 18 85/51 96 06/21/16 11:00 70 06/21/16 10:00 70 06/21/16 09:00 70 06/21/16 08:00 70 06/21/16 08:00 94 Nasal Cannula 2.00 06/21/16 07:20 93 Nasal Cannula 2.00 06/21/16 07:00 70 06/21/16 07:00 98.5 70 20 121/60 94 06/21/16 06:45 16 06/21/16 05:00 70 06/21/16 04:54 16 06/21/16 04:00 70 06/21/16 04:00 Nasal Cannula 1.00 06/21/16 03:00 70 06/21/16 03:00 98.4 70 20 115/66 91 06/21/16 02:00 70 06/21/16 01:00 70 06/21/16 00:00 70 06/21/16 00:00 Nasal Cannula 1.00 06/20/16 23:00 70 06/20/16 23:00 98.6 71 16 124/67 94 06/20/16 22:00 70 06/20/16 21:00 70 06/20/16 20:39 92 Nasal Cannula 2.00 06/20/16 20:00 91 Room Air 06/20/16 20:00 70 06/20/16 19:00 98.3 69 16 121/50 91 06/20/16 19:00 70 06/20/16 19:00 98.3 69 20 121/50 91 06/20/16 18:27 70 06/20/16 17:00 70 06/20/16 16:11 70 06/20/16 16:10 95 1.00 06/20/16 16:09 97.7 70 18 90/59 95 06/20/16 15:25 97.4 97/53 -: 06/21/16 0620 06/21/16 0620 Physical Exam General Appearance: Well Developed, Well Nourished Neck Neck Exam: Neck Supple Pulmonary Resp Exam: Clear Bilaterally, Breath Sounds Equal Cardiology CV Exam: Regular Gastrointestinal/Abdomen GI Exam: Soft, Non-Tender, Bowel Sounds Present Extremeties Extremities Exam: No Edema Assessment/Plan Problem List: (1) Acute renal failure Plan: cr worsening likely ATN monitor UOP follow BMP avoid nephrotoxins (2) Chronic systolic heart failure (3) Chronic kidney disease, stage III (moderate) (4) Diabetes mellitus Problem Qualifiers (1) Acute renal failure: Qualified Code: N17.0 - Acute renal failure with tubular necrosis (2) Diabetes mellitus: Qualified Code: E11.8 - Type 2 diabetes mellitus with complication, with long- term current use of insulin Checo Sr MD Jun 21, 2016 15:03
[2016-06-21] MEDS: ATORVASTATIN 40 MG TAB PO SCH (20:14)
[2016-06-21] MEDS: SENNOSIDES 8.6 MG TAB PO SCH (20:14)
[2016-06-22] VITALS (24 sets, daily range): BP systolic 82–128; BP diastolic 48–70; PULSE 70–77; RESP 16–20; TEMP 97.9–98.5; O2SAT 92–95
[2016-06-22] MEDS: ACETAMINOPHEN/HYDROcodone 325 MG/5 MG TAB PO PRN ×4 (01:20→12:45)
[2016-06-22] MEDS: HYDROmorphone HCL PF 1 MG/ML VIAL IV PUSH PRN ×2 (03:41→07:42)
[2016-06-22] MEDS: INSULIN ASPART SUPPLEMENTAL SCALE SQ SCH ×4 (06:42→21:01)
[2016-06-22] MEDS: SODIUM CHLORIDE 0.9% FLUSH 5 ML FLUSH IV FLUSH SCH ×2 (07:42→20:23)
[2016-06-22 08:06] LABS: HEMATOCRIT 28.9 % (39.0-51.0); MEAN CELL VOLUME 87.8 FL (80.0-100.0); MEAN CORPUSCULAR HEMOGLOBIN 29.1 PG (27.0-34.0); MEAN CORPUSCULAR HGB CONC 33.1 % (32.0-36.0); PLATELET COUNT 111 TH/MM3 (150-450); RED BLOOD COUNT 3.29 MIL/MM3 (4.50-5.90); RED CELL DISTRIBUTION WIDTH 16.7 % (11.6-17.2); REVIEW FLAG FINAL; WHITE BLOOD COUNT 13.7 TH/MM3 (4.0-11.0)
[2016-06-22 08:07] LABS: POTASSIUM 4.4 MEQ/L (3.5-5.1)
[2016-06-22] MEDS: NICOTINE 14 MG/24 HR PATCH TD SCH (08:44)
[2016-06-22] MEDS: ARTIFICIAL TEARS OPTH SOLN 15 ML BTL EACH EYE SCH ×3 (08:44→17:59)
[2016-06-22] MEDS: ASPIRIN 81 MG CHEW TAB PO SCH (08:45)
[2016-06-22] MEDS: amLODIPine BESYLATE 5 MG TAB PO SCH (08:45)
[2016-06-22] MEDS: AMIODARONE 200 MG TAB PO SCH ×2 (08:45→20:22)
[2016-06-22] MEDS: COREG PO SCH ×2 (08:45→20:21)
[2016-06-22] MEDS: PANTOPRAZOLE SOD 40 MG DELAYED RELEASE TAB PO SCH (08:45)
[2016-06-22] MEDS: DOCUSATE SODIUM 100 MG CAP PO SCH ×2 (08:45→20:21)
[2016-06-22] MEDS: MULTIVITAMINS/MINERALS THERAPEUTIC TAB PO SCH (08:45)
[2016-06-22] MEDS: GABAPENTIN 300 MG CAP PO SCH ×2 (08:45→12:44)
[2016-06-22] MEDS: POLYETHYLENE GLYCOL 17 GM PKG PO SCH (08:46)
--- NOTE | 2016-06-22 08:57 | HHI.PR ---
Subjective Remarks looks more comfortable today. pain is better. no new complaints. Objective Vitals Vital Signs Date Time Temp Pulse Resp B/P Pulse Ox O2 Delivery O2 Flow Rate FiO2 06/22/16 08:00 70 06/22/16 08:00 93 Nasal Cannula 2.00 06/22/16 07:00 98.3 70 20 101/60 93 06/22/16 07:00 70 06/22/16 06:30 20 06/22/16 06:00 70 06/22/16 05:00 70 06/22/16 04:20 20 06/22/16 04:00 70 06/22/16 04:00 Nasal Cannula 2.00 06/22/16 03:00 98.2 70 20 110/52 95 06/22/16 03:00 70 06/22/16 02:00 70 06/22/16 01:00 70 06/22/16 00:00 Nasal Cannula 2.00 06/22/16 00:00 70 06/21/16 23:00 98.0 70 20 125/67 94 06/21/16 23:00 70 06/21/16 22:00 70 06/21/16 21:00 70 06/21/16 20:00 93 Nasal Cannula 2.00 06/21/16 20:00 Nasal Cannula 2.00 06/21/16 20:00 70 06/21/16 19:00 70 06/21/16 19:00 97.7 70 20 107/67 93 Arterial Line 06/21/16 18:00 70 06/21/16 17:50 98.6 70 20 94/60 96 06/21/16 17:35 97.8 70 20 117/63 95 06/21/16 17:00 70 06/21/16 16:00 96 Nasal Cannula 2.00 06/21/16 16:00 70 06/21/16 15:00 70 06/21/16 15:00 97.6 70 20 95/58 96 06/21/16 15:00 97.8 70 20 102/58 96 06/21/16 14:45 97.6 70 20 95/58 96 06/21/16 14:00 70 06/21/16 13:00 70 06/21/16 12:00 70 06/21/16 12:00 96 Nasal Cannula 2.00 06/21/16 11:00 98.1 72 18 85/51 96 06/21/16 11:00 70 06/21/16 10:00 70 06/21/16 09:00 70 I/O 06/21/16 06/21/16 06/21/16 06/22/16 06/22/16 06/22/16 07:00 15:00 23:00 07:00 15:00 23:00 Intake Total 640 ml 1410 ml 720 ml Output Total 1 ml 870 ml 1151 ml Balance 639 ml 540 ml -431 ml Intake Oral 640 ml 1080 ml 720 ml Packed Cells 330 ml Output Urine Total 600 ml 850 ml Stool Total 1 ml 1 ml Chest Tube Drainage Total 270 ml 300 ml # Voids 1 Result Diagram: 06/22/16 0640 06/22/16 0640 Imaging Last Impressions Renal Ultrasound 06/20/16 0000 Signed Impressions: Service Date/Time: Monday, June 20, 2016 19:26 - CONCLUSION: 2 cysts involving the left kidney. No hydronephrosis. Mild increase in cortical echogenicity bilaterally Florencio Gomez MD Chest X-Ray 06/19/16 0500 Signed Impressions: Service Date/Time: May 05:07 - CONCLUSION: No significant change has occurred. Kervin Jacob MD Abdomen/Pelvis CT 06/17/16 0000 Signed Impressions: Service Date/Time: Friday, June 17, 2016 11:44 - CONCLUSION: 1. Uncomplicated colonic diverticulosis. 2. 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 3. Ventral abdominal wall hernia containing only fat. 4. Enlarged prostate. 5. Small bilateral pleural effusions (right larger than left). 6. Bibasilar alveolar consolidations consistent with compressive atelectasis and/or infiltrates. 7. Cardiomegaly. 8. 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 9. Left renal cysts. 10. Degenerative changes throughout the thoracolumbar spine. South Munoz MD Lower Extremity Ultrasound 06/10/16 0000 Signed Impressions: Service Date/Time: Friday, June 10, 2016 16:44 - CONCLUSION: Venous mapping study as described. Gregorio Walsh MD Carotid Artery Ultrasound 06/10/16 0000 Signed Impressions: Service Date/Time: Friday, June 10, 2016 16:11 - CONCLUSION: Mild to moderate plaquing bilaterally with less than 50%% diameter stenosis by velocity criteria. Gregorio Walsh MD CT Angiography 06/07/16 0000 Signed Impressions: Service Date/Time: Tuesday, June 07, 2016 15:18 - CONCLUSION: 1. No pulmonary embolus. 2. Very small, bilateral pleural effusions and patchy bilateral airspace opacities. 3. Mildly enlarged mediastinal lymph nodes, nonspecific. 4. Several nodules up to 2 cm in size of the left adrenal gland, incompletely characterized but statistically most likely adenomas. There is a cyst of the left kidney. 5. Coronary artery calcification. Florencio Hamilton MD Objective Remarks GENERAL: This is a well-nourished, well-developed patient, in no apparent distress. CARDIOVASCULAR: Regular rate and regular rhythm without murmurs, gallops, or rubs. RESPIRATORY: Clear to auscultation. Breath sounds equal bilaterally. No wheezes , rales, or rhonchi. chest tube in place. GASTROINTESTINAL: Abdomen soft, non-tender, nondistended. Normal, active bowel sounds MUSCULOSKELETAL: Extremities without clubbing, cyanosis, or edema. NEURO: Alert & Oriented x4 to person, place, time, situation. Moves all ext x4 Procedures 06/16- EGD- retained food 06/18- CABG Medications and IVs Current Medications IV Flush 2 ml 2 ml UNSCH PRN IVF FLUSH AFTER USING IV ACCESS Last administered on 06/07/16 03:39; Start 06/07/16 at 02:00; Stop 06/07/16 at 04:26; Status DC Nitroglycerin/ Dextrose (Nitroglycerin-Dextrose Inj) 250 ml @ 0 mls/hr TITRATE ONCE IV Last administered on 06/07/16 02:07; Start 06/07/16 at 02:00; Stop 02/13 at 02:01; Status DC Lorazepam 0.5 mg 0.5 mg ONCE ONCE IV PUSH Last administered on 06/07/16 02:07 ; Start 06/07/16 at 02:00; Stop 06/07/16 at 02:01; Status DC Cefepime HCl 2000 mg/Sodium Chloride 100 ml @ 200 mls/hr ONCE ONCE IV Last administered on 06/07/16 05:27; Start 06/07/16 at 03:00; Stop 06/07/16 at 03:29 ; Status DC Azithromycin/ Sodium Chloride (Zithromax Inj/ NS 250 ml Inj) 250 ml @ 250 mls/ hr ONCE ONCE IV Last administered on 06/07/16 03:38; Start 06/07/16 at 03:00 ; Stop 06/07/16 at 03:59; Status DC Bumetanide (Bumex Inj) 1 mg ONCE ONCE IV PUSH Last administered on 06/07/16 03:39; Start 06/07/16 at 03:00; Stop 06/07/16 at 03:01; Status DC Lorazepam (Ativan Inj) 0.5 mg ONCE ONCE IV PUSH Last administered on 03:39; Start 06/07/16 at 03:00; Stop 06/07/16 at 03:01; Status DC Aspirin (Aspirin Chew) 162 mg ONCE ONCE CHEW Last administered on 06/07/16 03 :45; Start 06/07/16 at 03:45; Stop 06/07/16 at 03:46; Status DC IV Flush (NS Flush) 2 ml UNSCH PRN IV FLUSH FLUSH AFTER USING IV ACCESS; Start 06/07/16 at 04:30; Stop 06/07/16 at 06:54; Status DC IV Flush (NS Flush) 2 ml BID IV FLUSH ; Start 06/07/16 at 09:00; Stop 06/07/16 at 09:00; Status DC Acetaminophen (Tylenol) 650 mg Q6H PRN PO PAIN 1-10 AND/OR FEVER >101F; Start 06/07/16 at 04:30; Stop 06/07/16 at 06:54; Status DC Pantoprazole Sodium (Protonix Inj) 40 mg DAILY IV ; Start 06/07/16 at 09:00; Stop 06/07/16 at 09:00; Status DC Ondansetron HCl (Zofran Inj) 4 mg Q6H PRN IV NAUSEA OR VOMITING; Start at 04:30; Stop 06/18/16 at 14:47; Status DC Albuterol Sulfate (Albuterol Neb) 2.5 mg Q2HR NEB PRN INH SOB/WHEEZING; Start 06/07/16 at 04:30; Stop 06/18/16 at 16:15; Status DC Enoxaparin Sodium (Lovenox Inj) 40 mg Q24H SQ Last administered on 06/07/16 11 :16; Start 06/07/16 at 09:00; Stop 06/08/16 at 09:08; Status DC Miscellaneous Information 1 Q361D XX ; Start 06/07/16 at 04:30; Stop 06/19/16 at 09:14; Status DC Chlorhexidine Gluconate (Chlorhexidine 2% Cloth) Taper DAILY@04 TOP Last administered on 06/18/16 04:00; Start 06/08/16 at 04:00; Stop 06/19/16 at 09:14 ; Status DC Chlorhexidine Gluconate (Chlorhexidine 2% Cloth) 3 pack UNSCH PRN TOP HYGIENIC CARE; Start 06/07/16 at 04:30; Stop 06/19/16 at 09:14; Status DC Bumetanide 1 mg 1 mg Q12H IV PUSH Last administered on 06/09/16 02:44; Start 06/07/16 at 15:00; Stop 06/09/16 at 09:05; Status DC Cefepime HCl 2000 mg/Sodium Chloride 100 ml @ 200 mls/hr Q12H IV Last administered on 06/19/16 02:49; Start 06/07/16 at 15:00; Stop 06/19/16 at 13:47 ; Status DC Azithromycin/ Sodium Chloride (Zithromax Inj/ NS 250 ml Inj) 250 ml @ 250 mls/ hr Q24H IV Last administered on 06/19/16 02:50; Start 06/08/16 at 03:00; Stop 06/19/16 at 13:48; Status DC Dextrose (D50w (Vial) Inj) 25 ml UNSCH PRN IV PUSH HYPOGLYCEMIA-SEE COMMENTS; Start 06/07/16 at 04:30; Stop 06/18/16 at 15:09; Status DC Glucagon (Glucagon Inj) 1 mg UNSCH PRN OTHER HYPOGLYCEMIA-SEE COMMENTS; Start 06/07/16 at 04:30; Stop 06/18/16 at 15:09; Status DC Insulin Aspart (NovoLOG SUPPLEMENTAL SCALE) 1 Q4HR SQ Last administered on 06/17 21:01; Start 06/07/16 at 04:30; Stop 06/18/16 at 15:09; Status DC Aspirin (Aspirin Chew) 81 mg DAILY CHEW Last administered on 06/09/16 09:38; Start 06/07/16 at 09:00; Stop 06/09/16 at 15:32; Status DC Ticagrelor (Brilinta) 90 mg BID PO Last administered on 06/11/16 08:13; Start 06/07/16 at 09:00; Stop 06/19/16 at 09:14; Status DC Carvedilol (Coreg) 6.25 mg Q12HR PO Last administered on 06/18/16 08:18; Start 06/07/16 at 09:00; Stop 06/19/16 at 09:25; Status DC Amlodipine Besylate (Norvasc) 2.5 mg DAILY PO Last administered on 06/22/16 08 :45; Start 06/07/16 at 09:00 Amiodarone HCl (Cordarone) 200 mg DAILY PO Last administered on 06/18/16 08:17 ; Start 06/07/16 at 09:00; Stop 06/18/16 at 14:37; Status DC Atorvastatin Calcium (Lipitor) 20 mg DAILY PO Last administered on 06/19/16 08 :35; Start 06/07/16 at 09:00; Stop 06/19/16 at 13:51; Status DC Gabapentin (Neurontin) 300 mg TID PO Last administered on 06/22/16 08:45; Start 06/07/16 at 09:00 Insulin Detemir (Levemir Inj) 8 units Q12HR SQ Last administered on 06/17/16 20:50; Start 06/07/16 at 09:00; Stop 06/18/16 at 15:09; Status DC IV Flush (NS Flush) 2 ml UNSCH PRN IV FLUSH FLUSH AFTER USING IV ACCESS Last administered on 06/08/16 14:37; Start 06/07/16 at 06:45; Stop 06/09/16 at 15:31 ; Status DC IV Flush (NS Flush) 2 ml BID IV FLUSH Last administered on 06/08/16 20:40; Start 06/07/16 at 09:00; Stop 06/09/16 at 15:31; Status DC Acetaminophen (Tylenol) 650 mg Q6H PRN PO PAIN 1-10 AND/OR FEVER >101F; Start 06/07/16 at 06:45; Stop 06/18/16 at 14:36; Status DC Acetaminophen/ Hydrocodone Bitart ([place] 5-325 Mg) 1 tab Q4H PRN PO PAIN SCALE 1 TO 5 Last administered on 06/08/16 22:35; Start 06/07/16 at 06:45; Stop 06/09/16 at 09:28; Status DC Morphine Sulfate (Morphine Inj) 2 mg Q2H PRN IV PAIN SCALE 6 TO 10 Last administered on 06/11/16 17:05; Start 06/07/16 at 06:45; Stop 06/11/16 at 18:26 ; Status DC Pantoprazole Sodium (Protonix) 40 mg DAILY PO Last administered on 06/16/16 08 :40; Start 06/07/16 at 09:00; Stop 06/16/16 at 10:09; Status DC Artificial Tears (Tears Naturale Opth Soln) 1 drop TID EACH EYE Last administered on 06/19/16 09:00; Start 06/07/16 at 09:00 Ondansetron HCl (Zofran Inj) 4 mg Q6H PRN IV NAUSEA OR VOMITING; Start at 06:45; Stop 06/07/16 at 06:54; Status DC Docusate Sodium (Colace) 100 mg BID PO Last administered on 06/15/16 20:14; Start 06/07/16 at 09:00; Stop 06/19/16 at 09:14; Status DC Sennosides (Senokot) 17.2 mg Q12H PRN PO CONSTIPATION; Start 06/07/16 at 06:45 ; Stop 06/19/16 at 09:14; Status DC Albuterol/ Ipratropium (Duoneb Neb) 1 ampule Q6HR NEB INH Last administered on 06/11/16 07:43; Start 06/07/16 at 10:00; Stop 06/11/16 at 10:00; Status DC Miscellaneous Information 1 Q361D XX ; Start 06/07/16 at 06:45; Stop 06/07/16 at 06:54; Status DC Chlorhexidine Gluconate (Chlorhexidine 2% Cloth) 3 pack Taper DAILY@04 TOP ; Start 06/08/16 at 04:00; Stop 06/08/16 at 04:00; Status DC Chlorhexidine Gluconate (Chlorhexidine 2% Cloth) 3 pack UNSCH PRN TOP HYGIENIC CARE; Start 06/07/16 at 06:45; Stop 06/07/16 at 06:54; Status DC Linezolid (Zyvox) 600 mg Q12HR PO Last administered on 06/19/16 08:35; Start 06/07/16 at 21:00; Stop 06/19/16 at 13:48; Status DC Acetylcysteine 600 mg 600 mg BID PO Last administered on 06/08/16 20:40; Start 06/07/16 at 21:00; Stop 06/09/16 at 09:01; Status DC Sodium Bicarbonate/ Sterile Water (Sodium Bicarbonate 8.4% Inj/Sterile Water For Inj) 1,000 ml @ 100 mls/hr Q10H IV Last administered on 06/07/16 14:49; Start 06/07/16 at 15:00; Stop 06/08/16 at 00:59; Status DC Iohexol (Omnipaque 350 Inj) 50 ml STK-MED ONCE IV ; Start 06/07/16 at 15:22; Stop 06/07/16 at 15:29; Status DC Heparin Sodium (Porcine) (Heparin Inj) 5,000 units UNSCH PRN IV APTT LESS THAN 25; Start 06/08/16 at 15:15; Stop 06/16/16 at 09:25; Status DC Heparin Sodium (Porcine) 2500 units 2,500 units UNSCH PRN IV APTT 25 TO 39; Start 06/08/16 at 15:15; Stop 06/16/16 at 09:25; Status DC Heparin Sodium/ Dextrose 250 ml @ 0 mls/hr TITRATE IV Last administered on 06/15 20:17; Start 06/08/16 at 09:15; Stop 06/16/16 at 09:25; Status DC Sodium Chloride (NS 1000 ml Inj) 1,000 ml @ 50 mls/hr Q20H IV Last administered on 06/09/16 09:30; Start 06/09/16 at 10:00; Stop 06/10/16 at 07:45 ; Status DC Acetaminophen/ Hydrocodone Bitart 2 tab 2 tab Q4H PRN PO PAIN SCALE 6 TO 10 Last administered on 06/17/16 15:25; Start 06/09/16 at 10:45; Stop 06/18/16 at 14:35; Status DC Heparin Sodium/ Sodium Chloride (Heparin-NS/Pf Inj) 500 ml @ As Directed STK- MED ONCE .ROUTE Last administered on 06/09/16 13:07; Start 06/09/16 at 13:07; Stop 06/09/16 at 13:08; Status DC Midazolam HCl (Versed Inj) 2 mg STK-MED ONCE .ROUTE Last administered on 13:08; Start 06/09/16 at 13:08; Stop 06/09/16 at 13:09; Status DC Fentanyl Citrate (fentaNYL INJ) 100 mcg STK-MED ONCE .ROUTE Last administered on 06/09/16 13:08; Start 06/09/16 at 13:08; Stop 06/09/16 at 13:09; Status DC Verapamil HCl (Isoptin Inj) 5 mg STK-MED ONCE .ROUTE Last administered on 13:08; Start 06/09/16 at 13:08; Stop 06/09/16 at 13:09; Status DC Heparin Sodium (Porcine) 27733 units 10,000 units STK-MED ONCE .ROUTE Last administered on 06/09/16 13:08; Start 06/09/16 at 13:08; Stop 06/09/16 at 13:09 ; Status DC Nitroglycerin 5 ml @ As Directed STK-MED ONCE .ROUTE Last administered on 13:08; Start 06/09/16 at 13:08; Stop 06/09/16 at 13:09; Status DC Tirofiban/Sodium Chloride (Aggrastat Infusion Inj) 250 ml @ As Directed STK- MED ONCE IV Last administered on 06/09/16 14:58; Start 06/09/16 at 14:58; Stop 06/09/16 at 14:59; Status DC Aspirin (Aspirin Chew) 81 mg DAILY PO Last administered on 06/18/16 08:18; Start 06/10/16 at 09:00; Stop 06/18/16 at 15:07; Status DC IV Flush (NS Flush) 2 ml UNSCH PRN IVF FLUSH AFTER USING IV ACCESS Last administered on 06/18/16t 08:18; Start 06/09/16 at 15:30; Stop 06/18/16 at 14:38 ; Status DC IV Flush (NS Flush) 2 ml BID IVF Last administered on 06/18/16t 08:19; Start at 21:00; Stop 06/18/16 at 14:38; Status DC Miscellaneous Information 1 ONCE ONCE XX ; Start 06/09/16 at 15:30; Stop at 15:31; Status DC Iohexol (OMNIPAQUE 350 INJ (Felt Hat Steamer)) 100 ml STK-MED ONCE OTHER ; Start at 15:00; Stop 06/09/16 at 15:47; Status DC Fentanyl Citrate (fentaNYL INJ) 50 mcg ONCE ONCE IV ; Start 06/09/16 at 13:29; Stop 06/09/16 at 17:40; Status DC Midazolam HCl (Versed Inj) 2 mg ONCE ONCE IV ; Start 06/09/16 at 13:30; Stop at 17:40; Status DC Verapamil HCl (Isoptin Inj) 2.5 mg ONCE ONCE IV PUSH ; Start 06/09/16 at 15:42 ; Stop 06/09/16 at 15:43; Status Cancel Nitroglycerin (Nitroglycerin Inj) 200 mcg ONCE ONCE OTHER ; Start 06/09/16 at 18:00; Stop 06/09/16 at 18:01; Status DC Heparin Sodium (Porcine) (Heparin Inj) 2,500 units ONCE ONCE IART ; Start 06/09 at 15:42; Stop 06/09/16 at 17:49; Status DC Verapamil HCl (Isoptin Inj) 2.5 mg ONCE ONCE OTHER ; Start 06/09/16 at 18:00; Stop 06/09/16 at 18:01; Status DC Heparin Sodium (Porcine) (Heparin Inj) 5,000 units ONCE ONCE IV ; Start at 13:40; Stop 06/09/16 at 17:53; Status DC Heparin Sodium (Porcine) 2000 units 2,000 units ONCE ONCE IV ; Start 06/09/16 at 14:40; Stop 06/09/16 at 17:53; Status DC Tirofiban/Sodium Chloride 100 ml @ 1,200 mls/hr BOLUS ONCE IV ; Start at 15:05; Stop 06/09/16 at 18:06; Status DC Tirofiban/Sodium Chloride (Aggrastat Infusion Inj) 250 ml @ 18 mls/hr [id number] IV Last administered on 06/10/16 03:26; Start 06/09/16 at 15:00; Stop at 09:00; Status DC Alprazolam (Xanax) 0.5 mg Q8H PRN PO ANXIETY Last administered on 06/14/16 16: 33; Start 06/10/16 at 08:00; Stop 06/15/16 at 08:43; Status DC Nicotine (Habitrol 14 Mg Patch.24 Hr) 1 patch DAILY TD Last administered on 08:44; Start 06/10/16 at 09:00 Miscellaneous Information 1 HS TD Last administered on 06/20/16 21:00; Start 06/10/16 at 21:00 Bumetanide (Bumex Inj) 1 mg BID@09,18 IV PUSH Last administered on 06/18/16 08 :17; Start 06/10/16 at 09:00; Stop 06/19/16 at 09:14; Status DC IV Flush (NS Flush) 2 ml BID IV FLUSH Last administered on 06/22/16 07:42; Start 06/10/16 at 21:00 IV Flush 2 ml 2 ml UNSCH PRN IV FLUSH FLUSH AFTER USING IV ACCESS Last administered on 06/21/16 18:49; Start 06/10/16 at 15:30 Papaverine HCl 60 mg/Nitroglycerin 100 mcg/Diltiazem HCl 100 mg/Sodium Chloride 100.0 ml @ 0 mls/hr TELEVISION AUDIO ENGINEER IRRIGATION ; Start 06/10/16 at 15:30; Stop at 15:29; Status DC Cefazolin Sodium 500 mg/Sodium Chloride 505 ml @ 0 mls/hr TELEVISION AUDIO ENGINEER IRRIGATION ; Start 06/10/16 at 15:30; Stop 06/17/16 at 15:29; Status DC Cefazolin Sodium/ Dextrose (Ancef 2 Gm Premix) 50 ml @ 150 mls/hr TELEVISION AUDIO ENGINEER IV Last administered on 06/18/16 11:16; Start 06/10/16 at 15:30; Stop 06/17/16 at 15:29; Status DC Metoprolol Tartrate (Lopressor) 12.5 mg TELEVISION AUDIO ENGINEER PO ; Start 06/11/16 at 05:00; Stop 06/17/16 at 04:59; Status DC Chlorhexidine Gluconate 1 applic 1 applic TELEVISION AUDIO ENGINEER TOPICAL ; Start 06/10/16 at 15:30; Stop 06/17/16 at 15:29; Status DC Insulin Human Regular 100 units/ Sodium Chloride 101 ml @ 0 mls/hr TELEVISION AUDIO ENGINEER IV ; Start 06/10/16 at 15:30; Stop 06/17/16 at 15:29; Status DC Tirofiban/Sodium Chloride 2500 mcg/ Syringe / Bag 50 ml @ 600 mls/hr BOLUS ONCE IV Last administered on 06/11/16 13:01; Start 06/11/16 at 11:45; Stop at 12:30; Status DC Tirofiban/Sodium Chloride 2500 mcg/ Syringe / Bag 50 ml @ 600 mls/hr BOLUS ONCE IV ; Start 06/11/16 at 11:45; Stop 06/11/16 at 11:53; Status DC Tirofiban/Sodium Chloride (Aggrastat Infusion Inj) 250 ml @ 18.018 mls/ hr [id number] IV Last administered on 06/16/16 04:02; Start 06/11/16 at 13:00; Stop 06/16/16 at 09:26; Status DC Morphine Sulfate (Morphine Inj) 1 mg Q4H PRN IV 7-10; Start 06/11/16 at 18:30; Status Cancel Morphine Sulfate (Morphine Inj) 2 mg Q2H PRN IV PAIN SCALE 6 TO 10 Last administered on 06/18/16 03:00; Start 06/11/16 at 18:30; Stop 06/19/16 at 09:14 ; Status DC Hydromorphone HCl 0.5 mg 0.5 mg Q4H PRN IV PUSH PAIN SCALE 7-10 Last administered on 06/18/16 05:42; Start 06/12/16 at 15:00; Stop 06/19/16 at 09:14 ; Status DC Potassium Chloride 100 ml @ 50 mls/hr Q2H PRN IV For Potassium 2.8 - 3.2 mEq/L ; Start 06/13/16 at 07:45; Stop 06/18/16 at 14:43; Status DC Potassium Chloride 100 ml @ 50 mls/hr Q2H PRN IV For Potassium 2.8 - 3.2 mEq/L ; Start 06/13/16 at 07:45; Stop 06/18/16 at 14:43; Status DC Potassium Chloride 100 ml @ 25 mls/hr UNSCH PRN IV For Potassium 3.3 - 3.5 mEq /L; Start 06/13/16 at 07:45; Stop 06/18/16 at 14:43; Status DC Potassium Chloride 100 ml @ 50 mls/hr Q2H PRN IV For Potassium 3.3 - 3.5 mEq/L ; Start 06/13/16 at 07:45; Stop 06/18/16 at 14:43; Status DC Magnesium Sulfate/ Sodium Chloride (Magnesium Sulfate Inj/NS Inj) 100 ml @ 50 mls/hr UNSCH PRN IV For Magnesium 0.9 - 1.1 mg/dL; Start 06/13/16 at 07:45; Stop 06/19/16 at 09:14; Status DC Magnesium Oxide 800 mg 800 mg UNSCH PRN PO For Magnesium 1.2 - 1.6 mg/dL; Start 06/13/16 at 07:45; Stop 06/18/16 at 14:43; Status DC Magnesium Sulfate/ Sodium Chloride (Magnesium Sulfate Inj/NS Inj) 100 ml @ 50 mls/hr UNSCH PRN IV For Magnesium 1.2 - 1.6 mg/dL; Start 06/13/16 at 07:45; Stop 06/19/16 at 09:15; Status DC Potassium Phosphate 2000 mg 2,000 mg Q4H PRN PO For Phosphorus < 2.5 mg/dL; Start 06/13/16 at 07:45; Stop 06/18/16 at 14:43; Status DC Sodium Phosphate/ Sodium Chloride (Sodium Phosphate Inj/NS 250 ml Inj) 250 ml @ 42 mls/hr UNSCH PRN IV For Phosphorus < 2.5 mg/dL; Start 06/13/16 at 07:45; Stop 06/19/16 at 09:15; Status DC Potassium Phosphate 2000 mg 2,000 mg UNSCH PRN PO/TUBE SEE LABEL COMMENTS; Start 06/13/16 at 07:45; Stop 06/18/16 at 14:43; Status DC Potassium Phosphate 30 mmol/ Sodium Chloride 260 ml @ 42 mls/hr UNSCH PRN IV SEE LABEL COMMENTS; Start 06/13/16 at 07:45; Stop 06/19/16 at 09:16; Status DC Sodium Chloride (NS 250 ml Inj) 250 ml @ 15 mls/hr ONCE ONCE IV ; Start at 06:00; Stop 06/14/16 at 22:39; Status DC Lorazepam 0.5 mg 0.5 mg Q6H PRN PO anxiety Last administered on 06/19/16 09:23 ; Start 06/15/16 at 09:00 Sodium Chloride 250 ml @ 15 mls/hr ONCE ONCE IV Last administered on 06:15; Start 06/16/16 at 06:15; Stop 06/16/16 at 22:54; Status DC Pantoprazole Sodium/Sodium Chloride (Protonix Inj/NS Inj) 100 ml @ 10 mls/hr CONTINUOUS IV Last administered on 06/20/16 06:01; Start 06/16/16 at 10:00; Stop 06/20/16 at 11:04; Status DC Propofol (Diprivan 200 Mg/20 ml Inj) 40 mg STK-MED ONCE IV ; Start 06/16/16 at 19:34; Stop 06/16/16 at 19:35; Status DC Miscellaneous Information ALL NURSING DEPARTME... UNSCH PRN XX SEE LABEL COMMENTS; Start 06/16/16 at 19:45; Stop 06/17/16 at 19:44; Status DC Diatrizoate Meglum/ Diatrizoate Sod ( Gastroesperanza Trotter) 18 ml ONCE ONCE PO ; Start 06/16/16 at 21:45; Stop 06/16/16 at 21:46; Status DC Diatrizoate Meglum/ Diatrizoate Sod ( Gastroesperanza Trotter) 18 ml ONCE ONCE PO Last administered on 06/17/16 06:58; Start 06/17/16 at 07:00; Stop 06/17/16 at 07:01; Status DC Heparin Sodium (Porcine) (Heparin Inj) 10,000 units STK-MED ONCE .ROUTE Last administered on 06/18/16 11:14; Start 06/18/16 at 08:24; Stop 06/18/16 at 08:25 ; Status DC Vancomycin HCl (Vancomycin Inj) 2,000 mg STK-MED ONCE .ROUTE ; Start 06/18/16 at 08:25; Stop 06/18/16 at 08:26; Status DC Heparin Sodium (Porcine) (Heparin Inj) 40,000 units STK-MED ONCE .ROUTE ; Start 06/18/16 at 08:25; Stop 06/18/16 at 08:26; Status DC Vancomycin HCl (Vancomycin Inj) 3,000 mg STK-MED ONCE .ROUTE Last administered on 06/18/16 11:18; Start 06/18/16 at 08:49; Stop 06/18/16 at 08:50; Status DC Midazolam HCl (Versed Inj) 10 mg STK-MED ONCE .ROUTE ; Start 06/18/16 at 08:57; Stop 06/18/16 at 08:58; Status DC Fentanyl Citrate 1000 mcg 1,000 mcg STK-MED ONCE .ROUTE ; Start 06/18/16 at 08: 57; Stop 06/18/16 at 08:58; Status DC Dexmedetomidine HCl 50 ml @ 0 mls/hr TITRATE IV Last administered on 06/18/16 16:10; Start 06/18/16 at 14:15; Stop 06/19/16 at 09:16; Status DC Nitroglycerin/ Dextrose 250 ml @ 0 mls/hr TITRATE IV ; Start 06/18/16 at 14:15; Stop 06/19/16 at 09:17; Status DC Dobutamine HCl/ Dextrose 250 ml @ 14.76 mls/ hr [id number] IV ; Start 06/18/16 at 14:14; Stop 06/19/16 at 09:17; Status DC Dopamine HCl/ Dextrose 500 ml @ 0 mls/hr TITRATE IV ; Start 06/18/16 at 14:15; Stop 06/19/16 at 09:18; Status DC Epinephrine HCl 4 mg/Dextrose 250 ml @ 0 mls/hr TITRATE IV ; Start 06/18/16 at 14:15; Stop 06/19/16 at 09:18; Status DC Phenylephrine HCl 40 mg/Dextrose 500 ml @ 0 mls/hr TITRATE IV ; Start 06/18/16 at 14:15; Stop 06/19/16 at 09:18; Status DC Clevidipine (Cleviprex Inj) 50 ml @ 0 mls/hr TITRATE IV ; Start 06/18/16 at 14: 15; Stop 06/19/16 at 09:19; Status DC Albumin Human 12.5 gm 12.5 gm UNSCH PRN IV SEE LABEL COMMENTS Last administered on 06/18/16 23:15; Start 06/18/16 at 14:15; Stop 06/19/16 at 09:24 ; Status DC Lactated Ringer's (Lr 1000 ml Inj) 500 ml @ 500 mls/hr Q1H PRN IV SEE LABEL COMMENTS; Start 06/18/16 at 14:14 Miscellaneous Information (Post-op Orders (for Pharmacy)) STAT ONCE OTHER ; Start 06/18/16 at 14:15; Stop 06/18/16 at 15:06; Status DC Aspirin (Aspirin Chew) 81 mg DAILY PO Last administered on 06/22/16 08:45; Start 06/19/16 at 09:00 Clopidogrel Bisulfate (Plavix) 75 mg DAILY PO Last administered on 06/19/16 08 :34; Start 06/19/16 at 09:00; Stop 06/20/16 at 18:03; Status DC Pantoprazole Sodium (Protonix) 40 mg DAILY@06 PO ; Start 06/19/16 at 06:00; Stop 06/19/16 at 06:00; Status DC Amiodarone HCl (Cordarone) 200 mg Q12HR PO Last administered on 06/22/16 08:45 ; Start 06/18/16 at 21:00 Acetaminophen (Tylenol) 650 mg Q4H PRN PO TEMPERATURE > 101 F; Start 06/18/16 at 14:15 Acetaminophen (Tylenol Supp) 650 mg Q4H PRN RECTAL TEMPERATURE > 101 F; Start 06/18/16 at 14:15; Stop 06/19/16 at 09:24; Status DC Acetaminophen (Ofirmev Inj) 1,000 mg Q6H IV Last administered on 06/19/16 08: 30; Start 06/18/16 at 15:00; Stop 06/19/16 at 09:02; Status DC Morphine Sulfate (Morphine Inj) 1 mg Q10M PRN IV PAIN SCALE 1 TO 5; Start 06/18 at 14:15; Stop 06/19/16 at 09:24; Status DC Meperidine HCl (Demerol Inj) 12.5 mg Q4H PRN IV SEE LABEL COMMENTS; Start 06/18 at 14:15; Stop 06/19/16 at 09:16; Status DC Acetaminophen/ Hydrocodone Bitart ([place] 5-325 Mg) 1 tab Q3H PRN PO PAIN SCALE 1 TO 5 Last administered on 06/19/16 02:57; Start 06/18/16 at 14:15 Acetaminophen/ Hydrocodone Bitart ([place] 5-325 Mg) 2 tab Q3H PRN PO PAIN SCALE 6 TO 10 Last administered on 06/22/16 05:07; Start 06/18/16 at 14:15 Fentanyl Citrate (fentaNYL INJ) 25 mcg Q1H PRN IV BREAKTHROUGH PAIN Last administered on 06/19/16 03:33; Start 06/18/16 at 14:15; Stop 06/19/16 at 09:24 ; Status DC Ondansetron HCl (Zofran Inj) 4 mg Q6H PRN IV PUSH NAUSEA OR VOMITING Last administered on 06/19/16 03:27; Start 06/18/16 at 14:15 Hydralazine HCl (Apresoline Inj) 10 mg Q4H PRN IV SEE LABEL COMMENTS; Start at 14:15; Stop 06/19/16 at 09:24; Status DC Metoprolol Tartrate 2.5 mg 2.5 mg Q1H PRN IV PUSH SEE LABEL COMMENTS; Start at 14:15; Stop 06/19/16 at 09:24; Status DC Potassium Chloride 100 ml @ 50 mls/hr UNSCH PRN IV SEE LABEL COMMENTS Last administered on 06/18/16 17:38; Start 06/18/16 at 14:15; Stop 06/19/16 at 09:24 ; Status DC Potassium Chloride 100 ml @ 50 mls/hr UNSCH PRN IV SEE LABEL COMMENTS; Start 06/18/16 at 14:15; Stop 06/19/16 at 09:24; Status DC Potassium Chloride (KCl 20 Meq Premix Inj) 100 ml @ 50 mls/hr UNSCH PRN IV SEE LABEL COMMENTS; Start 06/18/16 at 14:15; Stop 06/19/16 at 09:24; Status DC Potassium Chloride (KCl) 20 meq UNSCH PRN PO SEE LABEL COMMENTS; Start at 14:15; Stop 06/18/16 at 15:07; Status DC Potassium Chloride 40 meq 40 meq UNSCH PRN PO SEE LABEL COMMENTS; Start at 14:15; Stop 06/18/16 at 15:07; Status DC Magnesium Sulfate 2 gm/Sodium Chloride 104 ml @ 100 mls/hr UNSCH PRN IV SEE LABEL COMMENTS; Start 06/18/16 at 14:15; Stop 06/20/16 at 18:05; Status DC Magnesium Sulfate 2 gm/Sodium Chloride 104 ml @ 50 mls/hr UNSCH PRN IV SEE LABEL COMMENTS; Start 06/18/16 at 14:15; Stop 06/20/16 at 18:05; Status DC Calcium Chloride/ Sodium Chloride (Calcium Chloride Inj/NS Inj) 110 ml @ 100 mls/hr UNSCH PRN IV SEE LABEL COMMENTS; Start 06/18/16 at 14:15; Stop 06/19/16 at 09:25; Status DC Calcium Chloride 0.5 gm 0.5 gm UNSCH PRN IV SEE LABEL COMMENTS; Start 06/18/16 at 14:15; Stop 06/19/16 at 09:16; Status DC Insulin Human Regular/Sodium Chloride (NovoLIN R (IV INFUSION)/NS Inj) 100 ml @ 0 mls/hr TITRATE IV ; Start 06/18/16 at 14:15; Stop 06/19/16 at 09:25; Status DC Dextrose 25 ml 25 ml UNSCH PRN IV PUSH HYPOGLYCEMIA-SEE COMMENTS; Start at 14:15; Stop 06/19/16 at 09:26; Status DC Cefazolin Sodium/ Dextrose (Ancef 2 Gm Premix) 50 ml @ 100 mls/hr Q8H IV Last administered on 06/20/16 02:12; Start 06/18/16 at 18:00; Stop 06/20/16 at 02:29 ; Status DC Albuterol/ Ipratropium (Duoneb Neb) 1 ampule Q6HR NEB NEB Last administered on 06/19/16 08:55; Start 06/18/16 at 22:00; Stop 06/19/16 at 09:26; Status DC Albuterol/ Ipratropium (Duoneb Neb) 1 ampule Q2HR NEB PRN NEB WHEEZING; Start 06/18/16 at 17:00; Stop 06/19/16 at 09:26; Status DC Racepinephrine (Racepinephrine 2.25% Neb) 0.5 ml UNSCH X1 PRN NEB STRIDOR; Start 06/18/16 at 17:00; Stop 06/19/16 at 09:26; Status DC Albuterol/ Ipratropium (Duoneb Neb) 1 ampule Q6HR WHILE AWAKE NEB NEB Last administered on 06/21/16 07:19; Start 06/19/16 at 14:00; Stop 06/21/16 at 13:59 ; Status DC Docusate Sodium (Colace) 100 mg BID PO Last administered on 06/20/16 09:55; Start 06/19/16 at 21:00 Multivitamins/ Minerals Therapeutic (Theragran M Tab) 1 tab DAILY PO Last administered on 06/22/16 08:45; Start 06/20/16 at 09:00 Magnesium Hydroxide (Milk Of Georges Liq) 30 ml DAILY PO ; Start 06/19/16 at 10 :00; Stop 06/20/16 at 18:05; Status DC Bisacodyl (Dulcolax Supp) 10 mg UNSCH PRN RECTAL SEE LABEL COMMENTS; Start at 09:15; Stop 06/19/16 at 09:48; Status DC Polyethylene Glycol (Miralax) 17 gm DAILY PO ; Start 06/20/16 at 09:00 Sennosides (Senokot) 8.6 mg HS PO ; Start 06/19/16 at 21:00 Sodium Biphosphate/ Sodium Phosphate (Fleets Enema (Adult)) 133 ml UNSCH PRN RECTAL SEE LABEL COMMENTS; Start 06/19/16 at 09:15 Insulin Aspart (NovoLOG SUPPLEMENTAL SCALE) 1 02,06,10,14,18,22 SQ Last administered on 06/20/16 05:48; Start 06/19/16 at 10:00; Stop 06/20/16 at 06:01 ; Status DC Dextrose (D50w (Vial) Inj) 25 ml UNSCH PRN IV HYPOGLYCEMIA-SEE COMMENTS; Start 06/19/16 at 09:15 Glucagon (Glucagon Inj) 1 mg UNSCH PRN OTHER HYPOGLYCEMIA-SEE COMMENTS; Start 06/19/16 at 09:15 Morphine Sulfate (Morphine Inj) 2 mg Q6H PRN IV BREAKTHROUGH PAIN Last administered on 06/20/16 15:42; Start 06/19/16 at 09:30; Stop 06/20/16 at 18:03 ; Status DC Morphine Sulfate (Morphine Inj) 2 mg Q6H PRN IV BREAKTHROUGH PAIN Last administered on 06/21/16 06:37; Start 06/19/16 at 09:30; Stop 06/21/16 at 07:49 ; Status DC Carvedilol (Coreg) 3.125 mg Q12HR PO Last administered on 06/22/16 08:45; Start 06/20/16 at 09:00 Insulin Aspart (NovoLOG SUPPLEMENTAL SCALE) 1 ACHS SQ Last administered on 06/22 06:42; Start 06/20/16 at 11:00 Atorvastatin Calcium (Lipitor) 40 mg HS PO Last administered on 06/21/16 20:14 ; Start 06/19/16 at 21:00 Protamine Sulfate 500 mg 500 mg STK-MED ONCE IV ; Start 06/18/16 at 13:46; Stop 06/19/16 at 13:47; Status DC Sodium Chloride 300 ml @ As Directed STK-MED ONCE IV ; Start 06/18/16 at 13:46 ; Stop 06/19/16 at 13:47; Status DC Sodium Chloride 250 ml @ As Directed STK-MED ONCE IV ; Start 06/18/16 at 13:46 ; Stop 06/19/16 at 13:47; Status DC Parenteral Electrolytes 2,000 ml @ As Directed STK-MED ONCE IV ; Start at 13:46; Stop 06/19/16 at 13:47; Status DC Clevidipine (Cleviprex Inj) 50 ml @ As Directed STK-MED ONCE .ROUTE ; Start at 14:21; Stop 06/19/16 at 14:22; Status DC Pantoprazole Sodium (Protonix) 40 mg DAILY PO Last administered on 06/22/16 08 :45; Start 06/21/16 at 09:00 Hydromorphone HCl 1 mg 1 mg Q4H PRN IV PUSH BREAKTHROUGH PAIN Last administered on 06/22/16 07:42; Start 06/21/16 at 08:00 Sodium Chloride (NS 250 ml Inj) 250 ml @ 15 mls/hr ONCE ONCE IV Last administered on 06/21/16 17:27; Start 06/21/16 at 12:00; Stop 06/22/16 at 04:39 ; Status DC Furosemide (Lasix Inj) 40 mg ONCE ONCE IV Last administered on 06/21/16 17:26 ; Start 06/21/16 at 12:00; Stop 06/21/16 at 12:01; Status DC Date of Removal: Jun 19, 2016 A/P Assessment and Plan A/P Chronic systolic heart failure EF 25-30% with mild LVH and diffuse hypokinesis Peripheral vascular disease - history of right femoropopliteal with in situ saphenous vein grafting with thrombectomy of popliteal artery/anterior posterior tibial arteries [address] Mayes Coronary artery disease recent PCI/drug-eluting stent to RCA/PDA 04/[address] Kan secondary to inferior STEMI Dual-chamber defibrillator placed 05/[address] Yousif. DDD/70 Hypertension Dyslipidemia Elevated troponin Stent thrombosis RCA- Severe CAD three-vessel LAD, circumflex, stented RCA- S/P CABG 06/18. Post op anemia Cardiology -Dr. Kan ff S/P left heart catheterization 06/09/16-left main 4050 percent occlusion, left circumflex 70% occlusion,thrombosed RCA Continue amiodarone for history of V. tach continue aspirin Kilo 30 mg by mouth daily for dyslipidemia. on Coreg and Norvasc CT surgery following. Acute hypoxemic respiratory failure-resolved Wean O2 as tolerated Bronchodilator therapy every 6 hours and as needed incentive spirometry- will monitor off antibiotics- ID follow-up appreciated. Gastroesophageal reflux disease/ GIB s/p EGD with gastroparesis ADA diet. Protonix for GI prophylaxis. Colace/as needed Senokot for bowel regimen Diabetes mellitus type 2 On lispro 15 units daily at home. Sliding-scale insulin with Accu-Cheks every 4 hours to maintain euglycemia. Peripheral neuropathy secondary to diabetes Anxiety Neurontin Acetaminophen for fever [place]/morphine for pain management, [place] to 10/325mg, Dilaudid added every 4 hours when necessary for pain Acute kidney injury with underlying Chronic kidney disease stage III. Bumex was DC'ed 06/18 will monitor renal function renal US with no hydronephrosis nephrology consult appreciated. Possible community-acquired pneumonia History of MRSA treated with Zyvox off antibiotics- ID following. Blood cultures 2, sputum and UA NGTD Influenza negative Prophylaxis - GI - Protonix - chemical prophylaxis when ok with CT surgery. Tru Francis MD Jun 22, 2016 08:57
--- NOTE | 2016-06-22 11:45 | PD.CAR.PN ---
CVT Progress Note CVT: POD #: 4 Subjective/Hospital Course: 65-year-old male. Date of admission 06/07/2016. Past medical history includes recent heart catheterization 04/30/[address] Kan secondary to an inferior STEMI with PCI/MERE placed placed to the RCA and PDA. Left main was 30%. LAD was 40% proximal/80% diagonal. Left circumflex was 30%. EF was 20/5/30 percent. Im [place] devices placed as well. Patient had prolonged intubation During this hospitalization developed V. tach as well and a dual-chamber defibrillator was placed by Dr. Yousif /DDD 70 on 05/27. presented this admission , admitted this admission with NSTEMI, resp failure with hypoxia , underwent cardiac cath by Dr Kan, MAGALIE to stent thrombosis of RCA 06/09 pt was on Brilinta at home PMH: CAD, with 2 prior stents by the hypertension, diabetes,'s chronic systolic heart failure EF 20-25% , , peripheral vascular disease with a right femoropopliteal in situ saphenous vein revision [address] Mayes with thrombolytic colectomy to the popliteal artery and anterior and posterior tibial arteries, 06/13 NO PAIN DURING THE NIGHT OOB with assistance on aggrastat and heparin 06/16 pt developed GI Bleed with Heme + stools HGB 7.0/ for 2 units PRBC GI consult, for EGD today on protonix gtt heparin and Aggrastat dc rescheduled for surgery on 06/17 EGD completed , gastroparesis CT abd / pelvis pending HGB stable , spoke with GI Dr Lantigua will need colonoscopy as outpt hold on restarting heparin and Aggrastat for now although GI was ok with restarting anticoagulation keep scheduled for surgery in am 06/18 1. Urgent Off-pump Coronary Artery Bypass Grafting x 3 with left internal mammary artery (WANG) to left anterior descending (LAD), reverse saphenous vein graft to OM1, reverse saphenous vein graft to the RPDA 2. Left Leg Endoscopic Vein [place] 2200cc crystalloid, 2 PRBC 750cc cell saver , EBL 1500cc had large bloody BM 06/19 extubated after surgery, on nasal cannula wants to sleep, not get OOB discussed importance if pulm toileting and getting OOB no pressors, HGB 7.[address] Langley / recheck HGB this afternoon remains on protonix gtt will transfer to stepdown 06/20 HGB 7.5/ transfuse one unit PRBC continue PPI worsening renal indices, consult Nephrology check renal US urinary retention/ per bladder scan/ refuses urinary cath " does not have the urge to void at this time " CT 130cc/ 12/ additional 120 since this am 06/21/16 No complaints. Remains anemic with increased creatinine 06/22/16 Hgb improved post transfusion - urine output also better Chest tube drainage is copious . Objective: Vital Signs Date Time Temp Pulse Resp B/P Pulse Ox O2 Delivery O2 Flow Rate FiO2 06/22/16 10:00 70 06/22/16 09:00 70 06/22/16 08:00 70 06/22/16 08:00 93 Nasal Cannula 2.00 06/22/16 07:00 98.3 70 20 101/60 93 06/22/16 07:00 70 06/22/16 06:30 20 06/22/16 06:00 70 06/22/16 05:00 70 06/22/16 04:20 20 06/22/16 04:00 70 06/22/16 04:00 Nasal Cannula 2.00 06/22/16 03:00 98.2 70 20 110/52 95 06/22/16 03:00 70 06/22/16 02:00 70 06/22/16 01:00 70 06/22/16 00:00 Nasal Cannula 2.00 06/22/16 00:00 70 06/21/16 23:00 98.0 70 20 125/67 94 06/21/16 23:00 70 06/21/16 22:00 70 06/21/16 21:00 70 06/21/16 20:00 93 Nasal Cannula 2.00 06/21/16 20:00 Nasal Cannula 2.00 06/21/16 20:00 70 06/21/16 19:00 70 06/21/16 19:00 97.7 70 20 107/67 93 Arterial Line 06/21/16 18:00 70 06/21/16 17:50 98.6 70 20 94/60 96 06/21/16 17:35 97.8 70 20 117/63 95 06/21/16 17:00 70 06/21/16 16:00 96 Nasal Cannula 2.00 06/21/16 16:00 70 06/21/16 15:00 70 06/21/16 15:00 97.6 70 20 95/58 96 06/21/16 15:00 97.8 70 20 102/58 96 06/21/16 14:45 97.6 70 20 95/58 96 06/21/16 14:00 70 06/21/16 13:00 70 06/21/16 12:00 70 06/21/16 12:00 96 Nasal Cannula 2.00 Labs: Laboratory Tests Test 06/22/16 06:40 White Blood Count 13.7 TH/MM3 (4.0-11.0) Red Blood Count 3.29 MIL/MM3 (4.50-5.90) Hemoglobin 9.6 GM/DL (13.0-17.0) Hematocrit 28.9 % (39.0-51.0) Mean Corpuscular Volume 87.8 FL (80.0-100.0) Mean Corpuscular Hemoglobin 29.1 PG (27.0-34.0) Mean Corpuscular Hemoglobin 33.1 % Concent (32.0-36.0) Red Cell Distribution Width 16.7 % (11.6-17.2) Platelet Count 111 TH/MM3 (150-450) Mean Platelet Volume 8.7 FL (7.0-11.0) Sodium Level 134 MEQ/L (136-145) Potassium Level 4.4 MEQ/L (3.5-5.1) Chloride Level 101 MEQ/L (98-107) Carbon Dioxide Level 24.0 MEQ/L (21.0-32.0) Anion Gap 9 MEQ/L (5-15) Blood Urea Nitrogen 60 MG/DL (7-18) Creatinine 2.61 MG/DL (0.60-1.30) Estimat Glomerular Filtration 25 ML/MIN (>89) Rate Random Glucose 217 MG/DL (74-106) Calcium Level 8.1 MG/DL (8.5-10.1) Result Diagram: 06/22/16 0640 06/22/16 0640 Cardiovascular: RRR Telemetry: NSR Pulmonary: CTA GI/: NABS, NT Incision: dry and intact CT: ~550/24 hrs Plan: Diurese Continue chest tubes Encourage ambulation Wean O2 (1) NSTEMI (non-ST elevated myocardial infarction) (2) Coronary artery disease Plan: statin BB , ASA, statin OOB ambulate pain control pulm toileting (3) S/P CABG x 3 Plan: on ASA, BB in am , statin OOB, ambulate pulm toileting (4) Acute respiratory failure with hypoxia Plan: resolved (5) SIRS (systemic inflammatory response syndrome) Plan: improved, off antibiotics / appreciate ID for input (6) History of ventricular tachycardia (7) Chronic kidney disease, stage III (moderate) Plan: creatinine 1.61> 2.60 nephrology consult check US renal urinary retention/ refuses banda cath (8) Chronic systolic heart failure (9) Dyslipidemia Plan: statin (10) Hypertension Plan: stable (11) Peripheral vascular disease Plan: no claudia hose (12) Peripheral neuropathy (13) Pressure ulcer of left heel, unstageable Plan: podiatry following (14) Pressure ulcer of right heel, unstageable (15) Blood loss anemia Plan: s/p PRBC 06/18 monitor (16) Diabetes mellitus Plan: diabetic diet / insulin sliding scale Problem Qualifiers (1) Coronary artery disease: Qualified Code: I25.10 - Coronary artery disease involving [place] coronary artery of [place] heart, angina presence unspecified (2) Peripheral neuropathy: Qualified Code: G62.9 - Peripheral polyneuropathy (3) Diabetes mellitus: Qualified Code: E11.8 - Type 2 diabetes mellitus with complication, with long- term current use of insulin Roseline Peoples MD Jun 22, 2016 11:45
[2016-06-22] MEDS: FUROSEMIDE 40 MG/4 ML VIAL IV PUSH SCH ×2 (12:44→17:57)
[2016-06-22] MEDS ORDERED: oxyCODONE/ACETAMINOPHEN 5 MG/325 MG TAB PO PRN (13:15)
--- NOTE | 2016-06-22 14:04 | HHI.NPPN ---
Subjective History of Present Illness 65 Year old with diabetes, CAD, ARF post CABG Objective Data Data 06/21/16 06/22/16 19:00 07:00 Intake Total 1410 ml 720 ml Output Total 870 ml 1151 ml Balance 540 ml -431 ml Intake Oral 1080 ml 720 ml Packed Cells 330 ml Output Urine Total 600 ml 850 ml Stool Total 1 ml Chest Tube Drainage Total 270 ml 300 ml Vital Signs Date Time Temp Pulse Resp B/P Pulse Ox O2 Delivery O2 Flow Rate FiO2 06/22/16 13:00 70 06/22/16 12:00 93 Room Air 06/22/16 12:00 70 06/22/16 11:00 98.1 71 18 116/65 92 06/22/16 11:00 70 06/22/16 10:00 70 06/22/16 09:00 70 06/22/16 08:00 70 06/22/16 08:00 93 Nasal Cannula 2.00 06/22/16 07:00 98.3 70 20 101/60 93 06/22/16 07:00 70 06/22/16 06:30 20 06/22/16 06:00 70 06/22/16 05:00 70 06/22/16 04:20 20 06/22/16 04:00 70 06/22/16 04:00 Nasal Cannula 2.00 06/22/16 03:00 98.2 70 20 110/52 95 06/22/16 03:00 70 06/22/16 02:00 70 06/22/16 01:00 70 06/22/16 00:00 Nasal Cannula 2.00 06/22/16 00:00 70 06/21/16 23:00 98.0 70 20 125/67 94 06/21/16 23:00 70 06/21/16 22:00 70 06/21/16 21:00 70 06/21/16 20:00 93 Nasal Cannula 2.00 06/21/16 20:00 Nasal Cannula 2.00 06/21/16 20:00 70 06/21/16 19:00 70 06/21/16 19:00 97.7 70 20 107/67 93 Arterial Line 06/21/16 18:00 70 06/21/16 17:50 98.6 70 20 94/60 96 06/21/16 17:35 97.8 70 20 117/63 95 06/21/16 17:00 70 06/21/16 16:00 96 Nasal Cannula 2.00 06/21/16 16:00 70 06/21/16 15:00 70 06/21/16 15:00 97.6 70 20 95/58 96 06/21/16 15:00 97.8 70 20 102/58 96 06/21/16 14:45 97.6 70 20 95/58 96 -: 06/22/16 0640 06/22/16 0640 Physical Exam General Appearance: Well Developed, Well Nourished Neck Neck Exam: Neck Supple Pulmonary Resp Exam: Clear Bilaterally, Breath Sounds Equal Cardiology CV Exam: Regular Gastrointestinal/Abdomen GI Exam: Soft, Non-Tender, Bowel Sounds Present Extremeties Extremities Exam: No Edema Assessment/Plan Problem List: (1) Acute renal failure Plan: cr 2.61 likely ATN monitor UOP follow BMP avoid nephrotoxins cr stable non oliguric Dr. Sheehan to follow (2) Chronic systolic heart failure (3) Chronic kidney disease, stage III (moderate) (4) Diabetes mellitus Problem Qualifiers (1) Acute renal failure: Qualified Code: N17.0 - Acute renal failure with tubular necrosis (2) Diabetes mellitus: Qualified Code: E11.8 - Type 2 diabetes mellitus with complication, with long- term current use of insulin Checo Sr MD Jun 22, 2016 14:03
--- NOTE | 2016-06-22 14:39 | HHI.NPPN ---
Subjective History of Present Illness 65 Year old with diabetes, CAD, ARF post CABG Objective Data Data 06/21/16 06/22/16 19:00 07:00 Intake Total 1410 ml 720 ml Output Total 870 ml 1151 ml Balance 540 ml -431 ml Intake Oral 1080 ml 720 ml Packed Cells 330 ml Output Urine Total 600 ml 850 ml Stool Total 1 ml Chest Tube Drainage Total 270 ml 300 ml Vital Signs Date Time Temp Pulse Resp B/P Pulse Ox O2 Delivery O2 Flow Rate FiO2 06/22/16 14:00 70 06/22/16 13:00 70 06/22/16 12:00 93 Room Air 06/22/16 12:00 70 06/22/16 11:00 98.1 71 18 116/65 92 06/22/16 11:00 70 06/22/16 10:00 70 06/22/16 09:00 70 06/22/16 08:00 70 06/22/16 08:00 93 Nasal Cannula 2.00 06/22/16 07:00 98.3 70 20 101/60 93 06/22/16 07:00 70 06/22/16 06:30 20 06/22/16 06:00 70 06/22/16 05:00 70 06/22/16 04:20 20 06/22/16 04:00 70 06/22/16 04:00 Nasal Cannula 2.00 06/22/16 03:00 98.2 70 20 110/52 95 06/22/16 03:00 70 06/22/16 02:00 70 06/22/16 01:00 70 06/22/16 00:00 Nasal Cannula 2.00 06/22/16 00:00 70 06/21/16 23:00 98.0 70 20 125/67 94 06/21/16 23:00 70 06/21/16 22:00 70 06/21/16 21:00 70 06/21/16 20:00 93 Nasal Cannula 2.00 06/21/16 20:00 Nasal Cannula 2.00 06/21/16 20:00 70 06/21/16 19:00 70 06/21/16 19:00 97.7 70 20 107/67 93 Arterial Line 06/21/16 18:00 70 06/21/16 17:50 98.6 70 20 94/60 96 06/21/16 17:35 97.8 70 20 117/63 95 06/21/16 17:00 70 06/21/16 16:00 96 Nasal Cannula 2.00 06/21/16 16:00 70 06/21/16 15:00 70 06/21/16 15:00 97.6 70 20 95/58 96 06/21/16 15:00 97.8 70 20 102/58 96 06/21/16 14:45 97.6 70 20 95/58 96 -: 06/22/16 0640 06/22/16 0640 Physical Exam General Appearance: Well Developed, Well Nourished Neck Neck Exam: Neck Supple Pulmonary Resp Exam: Clear Bilaterally, Breath Sounds Equal Cardiology CV Exam: Regular Gastrointestinal/Abdomen GI Exam: Soft, Non-Tender, Bowel Sounds Present Extremeties Extremities Exam: No Edema Assessment/Plan Problem List: (1) Acute renal failure Plan: cr 2.61 likely ATN monitor UOP follow BMP avoid nephrotoxins on Lasix cr stable non oliguric Dr. Sheehan to follow (2) Chronic systolic heart failure (3) Chronic kidney disease, stage III (moderate) (4) Diabetes mellitus Problem Qualifiers (1) Acute renal failure: Qualified Code: N17.0 - Acute renal failure with tubular necrosis (2) Diabetes mellitus: Qualified Code: E11.8 - Type 2 diabetes mellitus with complication, with long- term current use of insulin Checo Sr MD Jun 22, 2016 14:39
[2016-06-22] MEDS: oxyCODONE/ACETAMINOPHEN 5 MG/325 MG TAB PO PRN ×2 (15:37→20:22)
[2016-06-22] MEDS ORDERED: FUROSEMIDE 40 MG/4 ML VIAL IV PUSH SCH (18:00)
[2016-06-22] MEDS: SENNOSIDES 8.6 MG TAB PO SCH (20:21)
[2016-06-22] MEDS: ATORVASTATIN 40 MG TAB PO SCH (20:21)
[2016-06-22] MEDS: PREGABALIN 75 MG CAP PO SCH (20:22)
[2016-06-22] MEDS: REMOVE OLD PATCH TD SCH (20:28)
[2016-06-23] VITALS (27 sets, daily range): BP systolic 108–124; BP diastolic 59–71; PULSE 70; RESP 16; TEMP 98.1–98.8; O2SAT 93–95
[2016-06-23] MEDS: oxyCODONE/ACETAMINOPHEN 5 MG/325 MG TAB PO PRN ×5 (00:07→21:18)
[2016-06-23 05:11] LABS: BICARBONATE 23.4 MEQ/L (21.0-32.0); POTASSIUM 5.5 MEQ/L (3.5-5.1)
[2016-06-23] MEDS: INSULIN ASPART SUPPLEMENTAL SCALE SQ SCH ×4 (06:35→21:00)
[2016-06-23] MEDS: DOCUSATE SODIUM 100 MG CAP PO SCH ×2 (09:00→21:00)
[2016-06-23] MEDS: POLYETHYLENE GLYCOL 17 GM PKG PO SCH (09:00)
[2016-06-23] MEDS: ARTIFICIAL TEARS OPTH SOLN 15 ML BTL EACH EYE SCH ×3 (09:00→17:27)
[2016-06-23] MEDS: SODIUM CHLORIDE 0.9% FLUSH 5 ML FLUSH IV FLUSH SCH ×2 (09:06→21:17)
[2016-06-23] MEDS: NICOTINE 14 MG/24 HR PATCH TD SCH (09:06)
[2016-06-23] MEDS: FUROSEMIDE 40 MG/4 ML VIAL IV PUSH SCH ×2 (09:06→17:37)
[2016-06-23] MEDS: AMIODARONE 200 MG TAB PO SCH ×2 (09:06→21:17)
[2016-06-23] MEDS: PREGABALIN 75 MG CAP PO SCH ×2 (09:07→21:18)
[2016-06-23] MEDS: COREG PO SCH ×2 (09:07→21:17)
[2016-06-23] MEDS: PANTOPRAZOLE SOD 40 MG DELAYED RELEASE TAB PO SCH (09:07)
[2016-06-23] MEDS: ASPIRIN 81 MG CHEW TAB PO SCH (09:07)
[2016-06-23] MEDS: amLODIPine BESYLATE 5 MG TAB PO SCH (09:07)
[2016-06-23] MEDS: MULTIVITAMINS/MINERALS THERAPEUTIC TAB PO SCH (09:07)
--- NOTE | 2016-06-23 09:44 | HHI.PR ---
Subjective Remarks in no acute distress. chest tube has been removed. has some pain to both legs. Objective Vitals Vital Signs Date Time Temp Pulse Resp B/P Pulse Ox O2 Delivery O2 Flow Rate FiO2 06/23/16 09:31 95 Nasal Cannula 2.00 06/23/16 09:00 70 06/23/16 08:00 98.6 70 16 114/62 93 06/23/16 08:00 70 06/23/16 07:00 70 06/23/16 05:11 16 06/23/16 05:00 70 06/23/16 04:00 70 06/23/16 03:00 98.3 70 16 113/67 93 06/23/16 03:00 70 06/23/16 02:00 70 06/23/16 01:00 70 06/23/16 00:00 70 06/22/16 23:00 97.9 70 16 128/70 94 06/22/16 23:00 70 06/22/16 22:00 70 06/22/16 21:30 20 06/22/16 21:00 70 06/22/16 20:00 94 Room Air 06/22/16 20:00 70 06/22/16 19:00 98.3 70 20 93/67 94 06/22/16 19:00 71 06/22/16 18:00 74 06/22/16 17:00 70 06/22/16 16:00 70 06/22/16 16:00 94 Room Air 06/22/16 15:00 98.5 77 20 82/48 94 06/22/16 15:00 70 06/22/16 14:00 70 06/22/16 13:00 70 06/22/16 12:00 93 Room Air 06/22/16 12:00 70 06/22/16 11:00 98.1 71 18 116/65 92 06/22/16 11:00 70 06/22/16 10:00 70 I/O 06/22/16 06/22/16 06/22/16 06/23/16 06/23/16 06/23/16 07:00 15:00 23:00 07:00 15:00 23:00 Intake Total 720 ml 1080 ml 480 ml Output Total 1151 ml 550 ml 560 ml Balance -431 ml 530 ml -80 ml Intake Oral 720 ml 1080 ml 480 ml Output Urine Total 850 ml 400 ml 430 ml Stool Total 1 ml Chest Tube Drainage Total 300 ml 150 ml 130 ml # Bowel Movements 2 Result Diagram: 06/22/16 0640 06/23/16 0352 Imaging Last Impressions Renal Ultrasound 06/20/16 0000 Signed Impressions: Service Date/Time: Monday, June 20, 2016 19:26 - CONCLUSION: 2 cysts involving the left kidney. No hydronephrosis. Mild increase in cortical echogenicity bilaterally Florencio Gomez MD Chest X-Ray 06/19/16 0500 Signed Impressions: Service Date/Time: May 05:07 - CONCLUSION: No significant change has occurred. Kervin Jacob MD Abdomen/Pelvis CT 06/17/16 0000 Signed Impressions: Service Date/Time: Friday, June 17, 2016 11:44 - CONCLUSION: 1. Uncomplicated colonic diverticulosis. 2. 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 3. Ventral abdominal wall hernia containing only fat. 4. Enlarged prostate. 5. Small bilateral pleural effusions (right larger than left). 6. Bibasilar alveolar consolidations consistent with compressive atelectasis and/or infiltrates. 7. Cardiomegaly. 8. 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 9. Left renal cysts. 10. Degenerative changes throughout the thoracolumbar spine. South Munoz MD Lower Extremity Ultrasound 06/10/16 0000 Signed Impressions: Service Date/Time: Friday, June 10, 2016 16:44 - CONCLUSION: Venous mapping study as described. Gregorio Walsh MD Carotid Artery Ultrasound 06/10/16 0000 Signed Impressions: Service Date/Time: Friday, June 10, 2016 16:11 - CONCLUSION: Mild to moderate plaquing bilaterally with less than 50%% diameter stenosis by velocity criteria. Gregorio Walsh MD CT Angiography 06/07/16 0000 Signed Impressions: Service Date/Time: Tuesday, June 07, 2016 15:18 - CONCLUSION: 1. No pulmonary embolus. 2. Very small, bilateral pleural effusions and patchy bilateral airspace opacities. 3. Mildly enlarged mediastinal lymph nodes, nonspecific. 4. Several nodules up to 2 cm in size of the left adrenal gland, incompletely characterized but statistically most likely adenomas. There is a cyst of the left kidney. 5. Coronary artery calcification. Florencio Hamilton MD Objective Remarks GENERAL: This is a well-nourished, well-developed patient, in no apparent distress. CARDIOVASCULAR: Regular rate and regular rhythm without murmurs, gallops, or rubs. RESPIRATORY: Clear to auscultation. Breath sounds equal bilaterally. No wheezes , rales, or rhonchi. chest tube in place. GASTROINTESTINAL: Abdomen soft, non-tender, nondistended. Normal, active bowel sounds MUSCULOSKELETAL: Extremities without clubbing, cyanosis, or edema. NEURO: Alert & Oriented x4 to person, place, time, situation. Moves all ext x4 Procedures 06/16- EGD- retained food 06/18- CABG Medications and IVs Current Medications IV Flush 2 ml 2 ml UNSCH PRN IVF FLUSH AFTER USING IV ACCESS Last administered on 06/07/16 03:39; Start 06/07/16 at 02:00; Stop 06/07/16 at 04:26; Status DC Nitroglycerin/ Dextrose (Nitroglycerin-Dextrose Inj) 250 ml @ 0 mls/hr TITRATE ONCE IV Last administered on 06/07/16 02:07; Start 06/07/16 at 02:00; Stop 02/13 at 02:01; Status DC Lorazepam 0.5 mg 0.5 mg ONCE ONCE IV PUSH Last administered on 06/07/16 02:07 ; Start 06/07/16 at 02:00; Stop 06/07/16 at 02:01; Status DC Cefepime HCl 2000 mg/Sodium Chloride 100 ml @ 200 mls/hr ONCE ONCE IV Last administered on 06/07/16 05:27; Start 06/07/16 at 03:00; Stop 06/07/16 at 03:29 ; Status DC Azithromycin/ Sodium Chloride (Zithromax Inj/ NS 250 ml Inj) 250 ml @ 250 mls/ hr ONCE ONCE IV Last administered on 06/07/16 03:38; Start 06/07/16 at 03:00 ; Stop 06/07/16 at 03:59; Status DC Bumetanide (Bumex Inj) 1 mg ONCE ONCE IV PUSH Last administered on 06/07/16 03:39; Start 06/07/16 at 03:00; Stop 06/07/16 at 03:01; Status DC Lorazepam (Ativan Inj) 0.5 mg ONCE ONCE IV PUSH Last administered on 03:39; Start 06/07/16 at 03:00; Stop 06/07/16 at 03:01; Status DC Aspirin (Aspirin Chew) 162 mg ONCE ONCE CHEW Last administered on 06/07/16 03 :45; Start 06/07/16 at 03:45; Stop 06/07/16 at 03:46; Status DC IV Flush (NS Flush) 2 ml UNSCH PRN IV FLUSH FLUSH AFTER USING IV ACCESS; Start 06/07/16 at 04:30; Stop 06/07/16 at 06:54; Status DC IV Flush (NS Flush) 2 ml BID IV FLUSH ; Start 06/07/16 at 09:00; Stop 06/07/16 at 09:00; Status DC Acetaminophen (Tylenol) 650 mg Q6H PRN PO PAIN 1-10 AND/OR FEVER >101F; Start 06/07/16 at 04:30; Stop 06/07/16 at 06:54; Status DC Pantoprazole Sodium (Protonix Inj) 40 mg DAILY IV ; Start 06/07/16 at 09:00; Stop 06/07/16 at 09:00; Status DC Ondansetron HCl (Zofran Inj) 4 mg Q6H PRN IV NAUSEA OR VOMITING; Start at 04:30; Stop 06/18/16 at 14:47; Status DC Albuterol Sulfate (Albuterol Neb) 2.5 mg Q2HR NEB PRN INH SOB/WHEEZING; Start 06/07/16 at 04:30; Stop 06/18/16 at 16:15; Status DC Enoxaparin Sodium (Lovenox Inj) 40 mg Q24H SQ Last administered on 06/07/16 11 :16; Start 06/07/16 at 09:00; Stop 06/08/16 at 09:08; Status DC Miscellaneous Information 1 Q361D XX ; Start 06/07/16 at 04:30; Stop 06/19/16 at 09:14; Status DC Chlorhexidine Gluconate (Chlorhexidine 2% Cloth) Taper DAILY@04 TOP Last administered on 06/18/16 04:00; Start 06/08/16 at 04:00; Stop 06/19/16 at 09:14 ; Status DC Chlorhexidine Gluconate (Chlorhexidine 2% Cloth) 3 pack UNSCH PRN TOP HYGIENIC CARE; Start 06/07/16 at 04:30; Stop 06/19/16 at 09:14; Status DC Bumetanide 1 mg 1 mg Q12H IV PUSH Last administered on 06/09/16 02:44; Start 06/07/16 at 15:00; Stop 06/09/16 at 09:05; Status DC Cefepime HCl 2000 mg/Sodium Chloride 100 ml @ 200 mls/hr Q12H IV Last administered on 06/19/16 02:49; Start 06/07/16 at 15:00; Stop 06/19/16 at 13:47 ; Status DC Azithromycin/ Sodium Chloride (Zithromax Inj/ NS 250 ml Inj) 250 ml @ 250 mls/ hr Q24H IV Last administered on 06/19/16 02:50; Start 06/08/16 at 03:00; Stop 06/19/16 at 13:48; Status DC Dextrose (D50w (Vial) Inj) 25 ml UNSCH PRN IV PUSH HYPOGLYCEMIA-SEE COMMENTS; Start 06/07/16 at 04:30; Stop 06/18/16 at 15:09; Status DC Glucagon (Glucagon Inj) 1 mg UNSCH PRN OTHER HYPOGLYCEMIA-SEE COMMENTS; Start 06/07/16 at 04:30; Stop 06/18/16 at 15:09; Status DC Insulin Aspart (NovoLOG SUPPLEMENTAL SCALE) 1 Q4HR SQ Last administered on 06/17 21:01; Start 06/07/16 at 04:30; Stop 06/18/16 at 15:09; Status DC Aspirin (Aspirin Chew) 81 mg DAILY CHEW Last administered on 06/09/16 09:38; Start 06/07/16 at 09:00; Stop 06/09/16 at 15:32; Status DC Ticagrelor (Brilinta) 90 mg BID PO Last administered on 06/11/16 08:13; Start 06/07/16 at 09:00; Stop 06/19/16 at 09:14; Status DC Carvedilol (Coreg) 6.25 mg Q12HR PO Last administered on 06/18/16 08:18; Start 06/07/16 at 09:00; Stop 06/19/16 at 09:25; Status DC Amlodipine Besylate (Norvasc) 2.5 mg DAILY PO Last administered on 06/23/16 09 :07; Start 06/07/16 at 09:00 Amiodarone HCl (Cordarone) 200 mg DAILY PO Last administered on 06/18/16 08:17 ; Start 06/07/16 at 09:00; Stop 06/18/16 at 14:37; Status DC Atorvastatin Calcium (Lipitor) 20 mg DAILY PO Last administered on 06/19/16 08 :35; Start 06/07/16 at 09:00; Stop 06/19/16 at 13:51; Status DC Gabapentin (Neurontin) 300 mg TID PO Last administered on 06/22/16 12:44; Start 06/07/16 at 09:00; Stop 06/22/16 at 13:15; Status DC Insulin Detemir (Levemir Inj) 8 units Q12HR SQ Last administered on 06/17/16 20:50; Start 06/07/16 at 09:00; Stop 06/18/16 at 15:09; Status DC IV Flush (NS Flush) 2 ml UNSCH PRN IV FLUSH FLUSH AFTER USING IV ACCESS Last administered on 06/08/16 14:37; Start 06/07/16 at 06:45; Stop 06/09/16 at 15:31 ; Status DC IV Flush (NS Flush) 2 ml BID IV FLUSH Last administered on 06/08/16 20:40; Start 06/07/16 at 09:00; Stop 06/09/16 at 15:31; Status DC Acetaminophen (Tylenol) 650 mg Q6H PRN PO PAIN 1-10 AND/OR FEVER >101F; Start 06/07/16 at 06:45; Stop 06/18/16 at 14:36; Status DC Acetaminophen/ Hydrocodone Bitart ([place] 5-325 Mg) 1 tab Q4H PRN PO PAIN SCALE 1 TO 5 Last administered on 06/08/16 22:35; Start 06/07/16 at 06:45; Stop 06/09/16 at 09:28; Status DC Morphine Sulfate (Morphine Inj) 2 mg Q2H PRN IV PAIN SCALE 6 TO 10 Last administered on 06/11/16 17:05; Start 06/07/16 at 06:45; Stop 06/11/16 at 18:26 ; Status DC Pantoprazole Sodium (Protonix) 40 mg DAILY PO Last administered on 06/16/16 08 :40; Start 06/07/16 at 09:00; Stop 06/16/16 at 10:09; Status DC Artificial Tears (Tears Naturale Opth Soln) 1 drop TID EACH EYE Last administered on 06/19/16 09:00; Start 06/07/16 at 09:00 Ondansetron HCl (Zofran Inj) 4 mg Q6H PRN IV NAUSEA OR VOMITING; Start at 06:45; Stop 06/07/16 at 06:54; Status DC Docusate Sodium (Colace) 100 mg BID PO Last administered on 06/15/16 20:14; Start 06/07/16 at 09:00; Stop 06/19/16 at 09:14; Status DC Sennosides (Senokot) 17.2 mg Q12H PRN PO CONSTIPATION; Start 06/07/16 at 06:45 ; Stop 06/19/16 at 09:14; Status DC Albuterol/ Ipratropium (Duoneb Neb) 1 ampule Q6HR NEB INH Last administered on 06/11/16 07:43; Start 06/07/16 at 10:00; Stop 06/11/16 at 10:00; Status DC Miscellaneous Information 1 Q361D XX ; Start 06/07/16 at 06:45; Stop 06/07/16 at 06:54; Status DC Chlorhexidine Gluconate (Chlorhexidine 2% Cloth) 3 pack Taper DAILY@04 TOP ; Start 06/08/16 at 04:00; Stop 06/08/16 at 04:00; Status DC Chlorhexidine Gluconate (Chlorhexidine 2% Cloth) 3 pack UNSCH PRN TOP HYGIENIC CARE; Start 06/07/16 at 06:45; Stop 06/07/16 at 06:54; Status DC Linezolid (Zyvox) 600 mg Q12HR PO Last administered on 06/19/16 08:35; Start 06/07/16 at 21:00; Stop 06/19/16 at 13:48; Status DC Acetylcysteine 600 mg 600 mg BID PO Last administered on 06/08/16 20:40; Start 06/07/16 at 21:00; Stop 06/09/16 at 09:01; Status DC Sodium Bicarbonate/ Sterile Water (Sodium Bicarbonate 8.4% Inj/Sterile Water For Inj) 1,000 ml @ 100 mls/hr Q10H IV Last administered on 06/07/16 14:49; Start 06/07/16 at 15:00; Stop 06/08/16 at 00:59; Status DC Iohexol (Omnipaque 350 Inj) 50 ml STK-MED ONCE IV ; Start 06/07/16 at 15:22; Stop 06/07/16 at 15:29; Status DC Heparin Sodium (Porcine) (Heparin Inj) 5,000 units UNSCH PRN IV APTT LESS THAN 25; Start 06/08/16 at 15:15; Stop 06/16/16 at 09:25; Status DC Heparin Sodium (Porcine) 2500 units 2,500 units UNSCH PRN IV APTT 25 TO 39; Start 06/08/16 at 15:15; Stop 06/16/16 at 09:25; Status DC Heparin Sodium/ Dextrose 250 ml @ 0 mls/hr TITRATE IV Last administered on 06/15 20:17; Start 06/08/16 at 09:15; Stop 06/16/16 at 09:25; Status DC Sodium Chloride (NS 1000 ml Inj) 1,000 ml @ 50 mls/hr Q20H IV Last administered on 06/09/16 09:30; Start 06/09/16 at 10:00; Stop 06/10/16 at 07:45 ; Status DC Acetaminophen/ Hydrocodone Bitart 2 tab 2 tab Q4H PRN PO PAIN SCALE 6 TO 10 Last administered on 06/17/16 15:25; Start 06/09/16 at 10:45; Stop 06/18/16 at 14:35; Status DC Heparin Sodium/ Sodium Chloride (Heparin-NS/Pf Inj) 500 ml @ As Directed STK- MED ONCE .ROUTE Last administered on 06/09/16 13:07; Start 06/09/16 at 13:07; Stop 06/09/16 at 13:08; Status DC Midazolam HCl (Versed Inj) 2 mg STK-MED ONCE .ROUTE Last administered on 13:08; Start 06/09/16 at 13:08; Stop 06/09/16 at 13:09; Status DC Fentanyl Citrate (fentaNYL INJ) 100 mcg STK-MED ONCE .ROUTE Last administered on 06/09/16 13:08; Start 06/09/16 at 13:08; Stop 06/09/16 at 13:09; Status DC Verapamil HCl (Isoptin Inj) 5 mg STK-MED ONCE .ROUTE Last administered on 13:08; Start 06/09/16 at 13:08; Stop 06/09/16 at 13:09; Status DC Heparin Sodium (Porcine) 79439 units 10,000 units STK-MED ONCE .ROUTE Last administered on 06/09/16 13:08; Start 06/09/16 at 13:08; Stop 06/09/16 at 13:09 ; Status DC Nitroglycerin 5 ml @ As Directed STK-MED ONCE .ROUTE Last administered on 13:08; Start 06/09/16 at 13:08; Stop 06/09/16 at 13:09; Status DC Tirofiban/Sodium Chloride (Aggrastat Infusion Inj) 250 ml @ As Directed STK- MED ONCE IV Last administered on 06/09/16 14:58; Start 06/09/16 at 14:58; Stop 06/09/16 at 14:59; Status DC Aspirin (Aspirin Chew) 81 mg DAILY PO Last administered on 06/18/16 08:18; Start 06/10/16 at 09:00; Stop 06/18/16 at 15:07; Status DC IV Flush (NS Flush) 2 ml UNSCH PRN IVF FLUSH AFTER USING IV ACCESS Last administered on 06/18/16 08:18; Start 06/09/16 at 15:30; Stop 06/18/16 at 14:38 ; Status DC IV Flush (NS Flush) 2 ml BID IVF Last administered on 06/18/16 08:19; Start at 21:00; Stop 06/18/16 at 14:38; Status DC Miscellaneous Information 1 ONCE ONCE XX ; Start 06/09/16 at 15:30; Stop at 15:31; Status DC Iohexol (OMNIPAQUE 350 INJ (Reconditioning Associate)) 100 ml STK-MED ONCE OTHER ; Start at 15:00; Stop 06/09/16 at 15:47; Status DC Fentanyl Citrate (fentaNYL INJ) 50 mcg ONCE ONCE IV ; Start 06/09/16 at 13:29; Stop 06/09/16 at 17:40; Status DC Midazolam HCl (Versed Inj) 2 mg ONCE ONCE IV ; Start 06/09/16 at 13:30; Stop at 17:40; Status DC Verapamil HCl (Isoptin Inj) 2.5 mg ONCE ONCE IV PUSH ; Start 06/09/16 at 15:42 ; Stop 06/09/16 at 15:43; Status Cancel Nitroglycerin (Nitroglycerin Inj) 200 mcg ONCE ONCE OTHER ; Start 06/09/16 at 18:00; Stop 06/09/16 at 18:01; Status DC Heparin Sodium (Porcine) (Heparin Inj) 2,500 units ONCE ONCE IART ; Start 06/09 at 15:42; Stop 06/09/16 at 17:49; Status DC Verapamil HCl (Isoptin Inj) 2.5 mg ONCE ONCE OTHER ; Start 06/09/16 at 18:00; Stop 06/09/16 at 18:01; Status DC Heparin Sodium (Porcine) (Heparin Inj) 5,000 units ONCE ONCE IV ; Start at 13:40; Stop 06/09/16 at 17:53; Status DC Heparin Sodium (Porcine) 2000 units 2,000 units ONCE ONCE IV ; Start 06/09/16 at 14:40; Stop 06/09/16 at 17:53; Status DC Tirofiban/Sodium Chloride 100 ml @ 1,200 mls/hr BOLUS ONCE IV ; Start at 15:05; Stop 06/09/16 at 18:06; Status DC Tirofiban/Sodium Chloride (Aggrastat Infusion Inj) 250 ml @ 18 mls/hr [id number] IV Last administered on 06/10/16t 03:26; Start 06/09/16 at 15:00; Stop at 09:00; Status DC Alprazolam (Xanax) 0.5 mg Q8H PRN PO ANXIETY Last administered on 06/14/16 16: 33; Start 06/10/16 at 08:00; Stop 06/15/16 at 08:43; Status DC Nicotine (Habitrol 14 Mg Patch.24 Hr) 1 patch DAILY TD Last administered on 09:06; Start 06/10/16 at 09:00 Miscellaneous Information 1 HS TD Last administered on 06/22/16 20:28; Start 06/10/16 at 21:00 Bumetanide (Bumex Inj) 1 mg BID@09,18 IV PUSH Last administered on 06/18/16 08 :17; Start 06/10/16 at 09:00; Stop 06/19/16 at 09:14; Status DC IV Flush (NS Flush) 2 ml BID IV FLUSH Last administered on 06/23/16 09:06; Start 06/10/16 at 21:00 IV Flush 2 ml 2 ml UNSCH PRN IV FLUSH FLUSH AFTER USING IV ACCESS Last administered on 06/21/16 18:49; Start 06/10/16 at 15:30 Papaverine HCl 60 mg/Nitroglycerin 100 mcg/Diltiazem HCl 100 mg/Sodium Chloride 100.0 ml @ 0 mls/hr APPRAISER ART IRRIGATION ; Start 06/10/16 at 15:30; Stop at 15:29; Status DC Cefazolin Sodium 500 mg/Sodium Chloride 505 ml @ 0 mls/hr APPRAISER ART IRRIGATION ; Start 06/10/16 at 15:30; Stop 06/17/16 at 15:29; Status DC Cefazolin Sodium/ Dextrose (Ancef 2 Gm Premix) 50 ml @ 150 mls/hr APPRAISER ART IV Last administered on 06/18/16 11:16; Start 06/10/16 at 15:30; Stop 06/17/16 at 15:29; Status DC Metoprolol Tartrate (Lopressor) 12.5 mg APPRAISER ART PO ; Start 06/11/16 at 05:00; Stop 06/17/16 at 04:59; Status DC Chlorhexidine Gluconate 1 applic 1 applic APPRAISER ART TOPICAL ; Start 06/10/16 at 15:30; Stop 06/17/16 at 15:29; Status DC Insulin Human Regular 100 units/ Sodium Chloride 101 ml @ 0 mls/hr APPRAISER ART IV ; Start 06/10/16 at 15:30; Stop 06/17/16 at 15:29; Status DC Tirofiban/Sodium Chloride 2500 mcg/ Syringe / Bag 50 ml @ 600 mls/hr BOLUS ONCE IV Last administered on 06/11/16 13:01; Start 06/11/16 at 11:45; Stop at 12:30; Status DC Tirofiban/Sodium Chloride 2500 mcg/ Syringe / Bag 50 ml @ 600 mls/hr BOLUS ONCE IV ; Start 06/11/16 at 11:45; Stop 06/11/16 at 11:53; Status DC Tirofiban/Sodium Chloride (Aggrastat Infusion Inj) 250 ml @ 18.018 mls/ hr [id number] IV Last administered on 06/16/16 04:02; Start 06/11/16 at 13:00; Stop 06/16/16 at 09:26; Status DC Morphine Sulfate (Morphine Inj) 1 mg Q4H PRN IV 7-10; Start 06/11/16 at 18:30; Status Cancel Morphine Sulfate (Morphine Inj) 2 mg Q2H PRN IV PAIN SCALE 6 TO 10 Last administered on 06/18/16 03:00; Start 06/11/16 at 18:30; Stop 06/19/16 at 09:14 ; Status DC Hydromorphone HCl 0.5 mg 0.5 mg Q4H PRN IV PUSH PAIN SCALE 7-10 Last administered on 06/18/16 05:42; Start 06/12/16 at 15:00; Stop 06/19/16 at 09:14 ; Status DC Potassium Chloride 100 ml @ 50 mls/hr Q2H PRN IV For Potassium 2.8 - 3.2 mEq/L ; Start 06/13/16 at 07:45; Stop 06/18/16 at 14:43; Status DC Potassium Chloride 100 ml @ 50 mls/hr Q2H PRN IV For Potassium 2.8 - 3.2 mEq/L ; Start 06/13/16 at 07:45; Stop 06/18/16 at 14:43; Status DC Potassium Chloride 100 ml @ 25 mls/hr UNSCH PRN IV For Potassium 3.3 - 3.5 mEq /L; Start 06/13/16 at 07:45; Stop 06/18/16 at 14:43; Status DC Potassium Chloride 100 ml @ 50 mls/hr Q2H PRN IV For Potassium 3.3 - 3.5 mEq/L ; Start 06/13/16 at 07:45; Stop 06/18/16 at 14:43; Status DC Magnesium Sulfate/ Sodium Chloride (Magnesium Sulfate Inj/NS Inj) 100 ml @ 50 mls/hr UNSCH PRN IV For Magnesium 0.9 - 1.1 mg/dL; Start 06/13/16 at 07:45; Stop 06/19/16 at 09:14; Status DC Magnesium Oxide 800 mg 800 mg UNSCH PRN PO For Magnesium 1.2 - 1.6 mg/dL; Start 06/13/16 at 07:45; Stop 06/18/16 at 14:43; Status DC Magnesium Sulfate/ Sodium Chloride (Magnesium Sulfate Inj/NS Inj) 100 ml @ 50 mls/hr UNSCH PRN IV For Magnesium 1.2 - 1.6 mg/dL; Start 06/13/16 at 07:45; Stop 06/19/16 at 09:15; Status DC Potassium Phosphate 2000 mg 2,000 mg Q4H PRN PO For Phosphorus < 2.5 mg/dL; Start 06/13/16 at 07:45; Stop 06/18/16 at 14:43; Status DC Sodium Phosphate/ Sodium Chloride (Sodium Phosphate Inj/NS 250 ml Inj) 250 ml @ 42 mls/hr UNSCH PRN IV For Phosphorus < 2.5 mg/dL; Start 06/13/16 at 07:45; Stop 06/19/16 at 09:15; Status DC Potassium Phosphate 2000 mg 2,000 mg UNSCH PRN PO/TUBE SEE LABEL COMMENTS; Start 06/13/16 at 07:45; Stop 06/18/16 at 14:43; Status DC Potassium Phosphate 30 mmol/ Sodium Chloride 260 ml @ 42 mls/hr UNSCH PRN IV SEE LABEL COMMENTS; Start 06/13/16 at 07:45; Stop 06/19/16 at 09:16; Status DC Sodium Chloride (NS 250 ml Inj) 250 ml @ 15 mls/hr ONCE ONCE IV ; Start at 06:00; Stop 06/14/16 at 22:39; Status DC Lorazepam 0.5 mg 0.5 mg Q6H PRN PO anxiety Last administered on 06/19/16 09:23 ; Start 06/15/16 at 09:00; Stop 06/22/16 at 11:43; Status DC Sodium Chloride 250 ml @ 15 mls/hr ONCE ONCE IV Last administered on 06:15; Start 06/16/16 at 06:15; Stop 06/16/16 at 22:54; Status DC Pantoprazole Sodium/Sodium Chloride (Protonix Inj/NS Inj) 100 ml @ 10 mls/hr CONTINUOUS IV Last administered on 06/20/16 06:01; Start 06/16/16 at 10:00; Stop 06/20/16 at 11:04; Status DC Propofol (Diprivan 200 Mg/20 ml Inj) 40 mg STK-MED ONCE IV ; Start 06/16/16 at 19:34; Stop 06/16/16 at 19:35; Status DC Miscellaneous Information ALL NURSING DEPARTME... UNSCH PRN XX SEE LABEL COMMENTS; Start 06/16/16 at 19:45; Stop 06/17/16 at 19:44; Status DC Diatrizoate Meglum/ Diatrizoate Sod ( Gastroview Liq) 18 ml ONCE ONCE PO ; Start 06/16/16 at 21:45; Stop 06/16/16 at 21:46; Status DC Diatrizoate Meglum/ Diatrizoate Sod ( Gastroview Liq) 18 ml ONCE ONCE PO Last administered on 06/17/16 06:58; Start 06/17/16 at 07:00; Stop 06/17/16 at 07:01; Status DC Heparin Sodium (Porcine) (Heparin Inj) 10,000 units STK-MED ONCE .ROUTE Last administered on 06/18/16 11:14; Start 06/18/16 at 08:24; Stop 06/18/16 at 08:25 ; Status DC Vancomycin HCl (Vancomycin Inj) 2,000 mg STK-MED ONCE .ROUTE ; Start 06/18/16 at 08:25; Stop 06/18/16 at 08:26; Status DC Heparin Sodium (Porcine) (Heparin Inj) 40,000 units STK-MED ONCE .ROUTE ; Start 06/18/16 at 08:25; Stop 06/18/16 at 08:26; Status DC Vancomycin HCl (Vancomycin Inj) 3,000 mg STK-MED ONCE .ROUTE Last administered on 06/18/16 11:18; Start 06/18/16 at 08:49; Stop 06/18/16 at 08:50; Status DC Midazolam HCl (Versed Inj) 10 mg STK-MED ONCE .ROUTE ; Start 06/18/16 at 08:57; Stop 06/18/16 at 08:58; Status DC Fentanyl Citrate 1000 mcg 1,000 mcg STK-MED ONCE .ROUTE ; Start 06/18/16 at 08: 57; Stop 06/18/16 at 08:58; Status DC Dexmedetomidine HCl 50 ml @ 0 mls/hr TITRATE IV Last administered on 06/18/16 16:10; Start 06/18/16 at 14:15; Stop 06/19/16 at 09:16; Status DC Nitroglycerin/ Dextrose 250 ml @ 0 mls/hr TITRATE IV ; Start 06/18/16 at 14:15; Stop 06/19/16 at 09:17; Status DC Dobutamine HCl/ Dextrose 250 ml @ 14.76 mls/ hr [id number] IV ; Start 06/18/16 at 14:14; Stop 06/19/16 at 09:17; Status DC Dopamine HCl/ Dextrose 500 ml @ 0 mls/hr TITRATE IV ; Start 06/18/16 at 14:15; Stop 06/19/16 at 09:18; Status DC Epinephrine HCl 4 mg/Dextrose 250 ml @ 0 mls/hr TITRATE IV ; Start 06/18/16 at 14:15; Stop 06/19/16 at 09:18; Status DC Phenylephrine HCl 40 mg/Dextrose 500 ml @ 0 mls/hr TITRATE IV ; Start 06/18/16 at 14:15; Stop 06/19/16 at 09:18; Status DC Clevidipine (Cleviprex Inj) 50 ml @ 0 mls/hr TITRATE IV ; Start 06/18/16 at 14: 15; Stop 06/19/16 at 09:19; Status DC Albumin Human 12.5 gm 12.5 gm UNSCH PRN IV SEE LABEL COMMENTS Last administered on 06/18/16 23:15; Start 06/18/16 at 14:15; Stop 06/19/16 at 09:24 ; Status DC Lactated Ringer's (Lr 1000 ml Inj) 500 ml @ 500 mls/hr Q1H PRN IV SEE LABEL COMMENTS; Start 06/18/16 at 14:14 Miscellaneous Information (Post-op Orders (for Pharmacy)) STAT ONCE OTHER ; Start 06/18/16 at 14:15; Stop 06/18/16 at 15:06; Status DC Aspirin (Aspirin Chew) 81 mg DAILY PO Last administered on 06/23/16 09:07; Start 06/19/16 at 09:00 Clopidogrel Bisulfate (Plavix) 75 mg DAILY PO Last administered on 06/19/16 08 :34; Start 06/19/16 at 09:00; Stop 06/20/16 at 18:03; Status DC Pantoprazole Sodium (Protonix) 40 mg DAILY@06 PO ; Start 06/19/16 at 06:00; Stop 06/19/16 at 06:00; Status DC Amiodarone HCl (Cordarone) 200 mg Q12HR PO Last administered on 06/23/16 09:06 ; Start 06/18/16 at 21:00 Acetaminophen (Tylenol) 650 mg Q4H PRN PO TEMPERATURE > 101 F; Start 06/18/16 at 14:15 Acetaminophen (Tylenol Supp) 650 mg Q4H PRN RECTAL TEMPERATURE > 101 F; Start 06/18/16 at 14:15; Stop 06/19/16 at 09:24; Status DC Acetaminophen (Ofirmev Inj) 1,000 mg Q6H IV Last administered on 06/19/16 08: 30; Start 06/18/16 at 15:00; Stop 06/19/16 at 09:02; Status DC Morphine Sulfate (Morphine Inj) 1 mg Q10M PRN IV PAIN SCALE 1 TO 5; Start 06/18 at 14:15; Stop 06/19/16 at 09:24; Status DC Meperidine HCl (Demerol Inj) 12.5 mg Q4H PRN IV SEE LABEL COMMENTS; Start 06/18 at 14:15; Stop 06/19/16 at 09:16; Status DC Acetaminophen/ Hydrocodone Bitart ([place] 5-325 Mg) 1 tab Q3H PRN PO PAIN SCALE 1 TO 5 Last administered on 06/19/16 02:57; Start 06/18/16 at 14:15; Stop 06/22/16 at 13:15; Status DC Acetaminophen/ Hydrocodone Bitart ([place] 5-325 Mg) 2 tab Q3H PRN PO PAIN SCALE 6 TO 10 Last administered on 06/22/16 12:45; Start 06/18/16 at 14:15; Stop 06/22/16 at 13:15; Status DC Fentanyl Citrate (fentaNYL INJ) 25 mcg Q1H PRN IV BREAKTHROUGH PAIN Last administered on 06/19/16 03:33; Start 06/18/16 at 14:15; Stop 06/19/16 at 09:24 ; Status DC Ondansetron HCl (Zofran Inj) 4 mg Q6H PRN IV PUSH NAUSEA OR VOMITING Last administered on 06/19/16 03:27; Start 06/18/16 at 14:15 Hydralazine HCl (Apresoline Inj) 10 mg Q4H PRN IV SEE LABEL COMMENTS; Start at 14:15; Stop 06/19/16 at 09:24; Status DC Metoprolol Tartrate 2.5 mg 2.5 mg Q1H PRN IV PUSH SEE LABEL COMMENTS; Start at 14:15; Stop 06/19/16 at 09:24; Status DC Potassium Chloride 100 ml @ 50 mls/hr UNSCH PRN IV SEE LABEL COMMENTS Last administered on 06/18/16 17:38; Start 06/18/16 at 14:15; Stop 06/19/16 at 09:24 ; Status DC Potassium Chloride 100 ml @ 50 mls/hr UNSCH PRN IV SEE LABEL COMMENTS; Start 06/18/16 at 14:15; Stop 06/19/16 at 09:24; Status DC Potassium Chloride (KCl 20 Meq Premix Inj) 100 ml @ 50 mls/hr UNSCH PRN IV SEE LABEL COMMENTS; Start 06/18/16 at 14:15; Stop 06/19/16 at 09:24; Status DC Potassium Chloride (KCl) 20 meq UNSCH PRN PO SEE LABEL COMMENTS; Start at 14:15; Stop 06/18/16 at 15:07; Status DC Potassium Chloride 40 meq 40 meq UNSCH PRN PO SEE LABEL COMMENTS; Start at 14:15; Stop 06/18/16 at 15:07; Status DC Magnesium Sulfate 2 gm/Sodium Chloride 104 ml @ 100 mls/hr UNSCH PRN IV SEE LABEL COMMENTS; Start 06/18/16 at 14:15; Stop 06/20/16 at 18:05; Status DC Magnesium Sulfate 2 gm/Sodium Chloride 104 ml @ 50 mls/hr UNSCH PRN IV SEE LABEL COMMENTS; Start 06/18/16 at 14:15; Stop 06/20/16 at 18:05; Status DC Calcium Chloride/ Sodium Chloride (Calcium Chloride Inj/NS Inj) 110 ml @ 100 mls/hr UNSCH PRN IV SEE LABEL COMMENTS; Start 06/18/16 at 14:15; Stop 06/19/16 at 09:25; Status DC Calcium Chloride 0.5 gm 0.5 gm UNSCH PRN IV SEE LABEL COMMENTS; Start 06/18/16 at 14:15; Stop 06/19/16 at 09:16; Status DC Insulin Human Regular/Sodium Chloride (NovoLIN R (IV INFUSION)/NS Inj) 100 ml @ 0 mls/hr TITRATE IV ; Start 06/18/16 at 14:15; Stop 06/19/16 at 09:25; Status DC Dextrose 25 ml 25 ml UNSCH PRN IV PUSH HYPOGLYCEMIA-SEE COMMENTS; Start at 14:15; Stop 06/19/16 at 09:26; Status DC Cefazolin Sodium/ Dextrose (Ancef 2 Gm Premix) 50 ml @ 100 mls/hr Q8H IV Last administered on 06/20/16 02:12; Start 06/18/16 at 18:00; Stop 06/20/16 at 02:29 ; Status DC Albuterol/ Ipratropium (Duoneb Neb) 1 ampule Q6HR NEB NEB Last administered on 06/19/16 08:55; Start 06/18/16 at 22:00; Stop 06/19/16 at 09:26; Status DC Albuterol/ Ipratropium (Duoneb Neb) 1 ampule Q2HR NEB PRN NEB WHEEZING; Start 06/18/16 at 17:00; Stop 06/19/16 at 09:26; Status DC Racepinephrine (Racepinephrine 2.25% Neb) 0.5 ml UNSCH X1 PRN NEB STRIDOR; Start 06/18/16 at 17:00; Stop 06/19/16 at 09:26; Status DC Albuterol/ Ipratropium (Duoneb Neb) 1 ampule Q6HR WHILE AWAKE NEB NEB Last administered on 06/21/16 07:19; Start 06/19/16 at 14:00; Stop 06/21/16 at 13:59 ; Status DC Docusate Sodium (Colace) 100 mg BID PO Last administered on 06/20/16 09:55; Start 06/19/16 at 21:00 Multivitamins/ Minerals Therapeutic (Theragran M Tab) 1 tab DAILY PO Last administered on 06/23/16 09:07; Start 06/20/16 at 09:00 Magnesium Hydroxide (Milk Of Magnesia Liq) 30 ml DAILY PO ; Start 06/19/16 at 10 :00; Stop 06/20/16 at 18:05; Status DC Bisacodyl (Dulcolax Supp) 10 mg UNSCH PRN RECTAL SEE LABEL COMMENTS; Start at 09:15; Stop 06/19/16 at 09:48; Status DC Polyethylene Glycol (Miralax) 17 gm DAILY PO ; Start 06/20/16 at 09:00 Sennosides (Senokot) 8.6 mg HS PO ; Start 06/19/16 at 21:00 Sodium Biphosphate/ Sodium Phosphate (Fleets Enema (Adult)) 133 ml UNSCH PRN RECTAL SEE LABEL COMMENTS; Start 06/19/16 at 09:15 Insulin Aspart (NovoLOG SUPPLEMENTAL SCALE) 1 02,06,10,14,18,22 SQ Last administered on 06/20/16 05:48; Start 06/19/16 at 10:00; Stop 06/20/16 at 06:01 ; Status DC Dextrose (D50w (Vial) Inj) 25 ml UNSCH PRN IV HYPOGLYCEMIA-SEE COMMENTS; Start 06/19/16 at 09:15 Glucagon (Glucagon Inj) 1 mg UNSCH PRN OTHER HYPOGLYCEMIA-SEE COMMENTS; Start 06/19/16 at 09:15 Morphine Sulfate (Morphine Inj) 2 mg Q6H PRN IV BREAKTHROUGH PAIN Last administered on 06/20/16 15:42; Start 06/19/16 at 09:30; Stop 06/20/16 at 18:03 ; Status DC Morphine Sulfate (Morphine Inj) 2 mg Q6H PRN IV BREAKTHROUGH PAIN Last administered on 06/21/16 06:37; Start 06/19/16 at 09:30; Stop 06/21/16 at 07:49 ; Status DC Carvedilol (Coreg) 3.125 mg Q12HR PO Last administered on 06/23/16 09:07; Start 06/20/16 at 09:00 Insulin Aspart (NovoLOG SUPPLEMENTAL SCALE) 1 ACHS SQ Last administered on 06/23 06:35; Start 06/20/16 at 11:00 Atorvastatin Calcium (Lipitor) 40 mg HS PO Last administered on 06/22/16 20:21 ; Start 06/19/16 at 21:00 Protamine Sulfate 500 mg 500 mg STK-MED ONCE IV ; Start 06/18/16 at 13:46; Stop 06/19/16 at 13:47; Status DC Sodium Chloride 300 ml @ As Directed STK-MED ONCE IV ; Start 06/18/16 at 13:46 ; Stop 06/19/16 at 13:47; Status DC Sodium Chloride 250 ml @ As Directed STK-MED ONCE IV ; Start 06/18/16 at 13:46 ; Stop 06/19/16 at 13:47; Status DC Parenteral Electrolytes 2,000 ml @ As Directed STK-MED ONCE IV ; Start at 13:46; Stop 06/19/16 at 13:47; Status DC Clevidipine (Cleviprex Inj) 50 ml @ As Directed STK-MED ONCE .ROUTE ; Start at 14:21; Stop 06/19/16 at 14:22; Status DC Pantoprazole Sodium (Protonix) 40 mg DAILY PO Last administered on 06/23/16 09 :07; Start 06/21/16 at 09:00 Hydromorphone HCl 1 mg 1 mg Q4H PRN IV PUSH BREAKTHROUGH PAIN Last administered on 06/22/16 07:42; Start 06/21/16 at 08:00; Stop 06/22/16 at 11:43 ; Status DC Sodium Chloride (NS 250 ml Inj) 250 ml @ 15 mls/hr ONCE ONCE IV Last administered on 06/21/16 17:27; Start 06/21/16 at 12:00; Stop 06/22/16 at 04:39 ; Status DC Furosemide (Lasix Inj) 40 mg ONCE ONCE IV Last administered on 06/21/16 17:26 ; Start 06/21/16 at 12:00; Stop 06/21/16 at 12:01; Status DC Furosemide (Lasix Inj) 40 mg BID@09,18 IV PUSH ; Start 06/22/16 at 18:00; Stop 06/22/16 at 18:00; Status DC Furosemide (Lasix Inj) 40 mg BID@09,18 IV PUSH Last administered on 06/23/16 09:06; Start 06/22/16 at 11:45 Pregabalin (Lyrica) 75 mg Q12HR PO Last administered on 06/23/16 09:07; Start 06/22/16 at 21:00 Oxycodone/ Acetaminophen (Percocet 5-325 Mg) 1 tab Q4H PRN PO PAIN 3-6; Start 06/22/16 at 13:15 Oxycodone/ Acetaminophen (Percocet 5-325 Mg) 2 tab Q4H PRN PO PAIN 7-10 Last administered on 06/23/16 09:09; Start 06/22/16 at 13:15 Date of Removal: Jun 19, 2016 A/P Assessment and Plan A/P Chronic systolic heart failure EF 25-30% with mild LVH and diffuse hypokinesis Peripheral vascular disease - history of right femoropopliteal with in situ saphenous vein grafting with thrombectomy of popliteal artery/anterior posterior tibial arteries [address] Mayes Coronary artery disease recent PCI/drug-eluting stent to RCA/PDA 04/[address] Kan secondary to inferior STEMI Dual-chamber defibrillator placed 05/[address] Yousif. DDD/70 Hypertension Dyslipidemia Elevated troponin Stent thrombosis RCA- Severe CAD three-vessel LAD, circumflex, stented RCA- S/P CABG 06/18. Post op anemia Cardiology -Dr. Kan ff S/P left heart catheterization 06/09/16-left main 4050 percent occlusion, left circumflex 70% occlusion,thrombosed RCA Continue amiodarone for history of V. tach continue aspirin Kilo 30 mg by mouth daily for dyslipidemia. on Coreg and Norvasc CT surgery following. Acute hypoxemic respiratory failure-resolved Wean O2 as tolerated Bronchodilator therapy every 6 hours and as needed incentive spirometry- will monitor off antibiotics- ID follow-up appreciated. Gastroesophageal reflux disease/ GIB s/p EGD with gastroparesis ADA diet. Protonix for GI prophylaxis. Colace/as needed Senokot for bowel regimen Diabetes mellitus type 2 On lispro 15 units daily at home. Sliding-scale insulin with Accu-Cheks Peripheral neuropathy secondary to diabetes Anxiety started back on Lyrica and percocet Acetaminophen for fever Acute kidney injury with underlying Chronic kidney disease stage III. hyperkalemia Bumex was DC'ed 06/18 will monitor renal function renal US with no hydronephrosis repeat potassium level today nephrology consult appreciated. Possible community-acquired pneumonia History of MRSA treated with Zyvox off antibiotics- ID following. Blood cultures 2, sputum and UA NGTD Influenza negative Prophylaxis - GI - Protonix - chemical prophylaxis when ok with CT surgery. Tru Francis MD Jun 23, 2016 09:44
[2016-06-23] MEDS ORDERED: SODIUM POLYSTYRENE SULFONATE SUSP 15 GM/60 ML CUP PO ONE (10:15)
--- NOTE | 2016-06-23 12:48 | RADRPT ---
EXAM DATE/TIME: 06/23/2016 11:07 [facility] COMPARISON: US LEG BILATERAL VENOUS DOPPLER, June 07, 2016, 11:05. INDICATIONS : Bilateral leg swelling. MEDICAL HISTORY : Dyspnea. SURGICAL HISTORY : Pacemaker. Right leg artery re-vascularized. ENCOUNTER: Subsequent ACUITY: 2 weeks PAIN SCORE: 0/10 LOCATION: Bilateral legs. TECHNIQUE: Venous ultrasound of the left and right leg was performed from the inguinal ligament to the proximal calf. Real-time, color Doppler and spectral tracing, compression and augmentation techniques were us ed. FINDINGS: RIGHT LEG: There is normal compressibility of the deep venous system from the inguinal region to the proximal ca lf. No echogenic clot is seen in the lumen of the common femoral, femoral, popliteal, and posterior tibial veins. There is a normal response of the venous system to proximal and distal augmentation an d respiration. LEFT LEG: There is normal compressibility of the deep venous system from the inguinal region to the proximal ca lf. No echogenic clot is seen in the lumen of the common femoral, femoral, popliteal, and posterior tibial veins. There is a normal response of the venous system to proximal and distal augmentation an d respiration. CONCLUSION: Negative for deep venous thrombosis. History of greater saphenous vein removal for bypass on the [facility].. Frank Walters MD FACR on June 23, 2016 at 12:46 Board Certified Radiologist. This report was verified electronically.
--- NOTE | 2016-06-23 16:23 | PD.CAR.PN ---
CVT Progress Note CVT: POD #: 5 Subjective/Hospital Course: 65-year-old male. Date of admission 06/07/2016. Past medical history includes recent heart catheterization 04/30/[address] Kan secondary to an inferior STEMI with PCI/MERE placed placed to the RCA and PDA. Left main was 30%. LAD was 40% proximal/80% diagonal. Left circumflex was 30%. EF was 20/5/30 percent. Im [place] devices placed as well. Patient had prolonged intubation During this hospitalization developed V. tach as well and a dual-chamber defibrillator was placed by Dr. Yousif /DDD 70 on 05/27. presented this admission , admitted this admission with NSTEMI, resp failure with hypoxia , underwent cardiac cath by Dr Kan, MAGALIE to stent thrombosis of RCA 06/09 pt was on Brilinta at home PMH: CAD, with 2 prior stents by the hypertension, diabetes,'s chronic systolic heart failure EF 20-25% , , peripheral vascular disease with a right femoropopliteal in situ saphenous vein revision [address] Mayes with thrombolytic colectomy to the popliteal artery and anterior and posterior tibial arteries, 06/13 NO PAIN DURING THE NIGHT OOB with assistance on aggrastat and heparin 06/16 pt developed GI Bleed with Heme + stools HGB 7.0/ for 2 units PRBC GI consult, for EGD today on protonix gtt heparin and Aggrastat dc rescheduled for surgery on 06/17 EGD completed , gastroparesis CT abd / pelvis pending HGB stable , spoke with GI Dr Lantigua will need colonoscopy as outpt hold on restarting heparin and Aggrastat for now although GI was ok with restarting anticoagulation keep scheduled for surgery in am 06/18 1. Urgent Off-pump Coronary Artery Bypass Grafting x 3 with left internal mammary artery (WANG) to left anterior descending (LAD), reverse saphenous vein graft to OM1, reverse saphenous vein graft to the RPDA 2. Left Leg Endoscopic Vein Riley 2200cc crystalloid, 2 PRBC 750cc cell saver , EBL 1500cc had large bloody BM 06/19 extubated after surgery, on nasal cannula wants to sleep, not get OOB discussed importance if pulm toileting and getting OOB no pressors, HGB 7.[address] Langley / recheck HGB this afternoon remains on protonix gtt will transfer to stepdown 06/20 HGB 7.5/ transfuse one unit PRBC continue PPI worsening renal indices, consult Nephrology check renal US urinary retention/ per bladder scan/ refuses urinary cath " does not have the urge to void at this time " CT 130cc/ 12/ additional 120 since this am 06/21/16 No complaints. Remains anemic with increased creatinine 06/22/16 Hgb improved post transfusion - urine output also better Chest tube drainage is copious 06/23/16 chest tubes dc without difficulty CXR pending in am + edema lower ext/ neg for DVT/ on diuretics, elevate legs no MARIBETH due to pressure ulcers and severe PVD + BM eval for dc in 1-2 days / pt wants to go home . Objective: GENERAL: SKIN: Warm and dry./ prevena dressing to chest HEAD: Normocephalic. EYES: No scleral icterus. No injection or drainage. NECK: Supple, trachea midline. No JVD or lymphadenopathy. CARDIOVASCULAR: intermittent A./V paced without murmurs, gallops, or rubs. RESPIRATORY: diminished in bases Breath sounds equal bilaterally. No accessory muscle use. chest tubes removed GASTROINTESTINAL: Abdomen soft, non-tender, nondistended. MUSCULOSKELETAL: No cyanosis, or edema. BACK: Nontender without obvious deformity. No CVA tenderness. Vital Signs Date Time Temp Pulse Resp B/P Pulse Ox O2 Delivery O2 Flow Rate FiO2 06/23/16 15:09 98.2 70 16 124/68 93 06/23/16 15:00 70 06/23/16 14:00 70 06/23/16 13:00 70 06/23/16 12:00 70 06/23/16 12:00 98.5 70 16 108/64 93 06/23/16 11:00 70 06/23/16 10:09 20 06/23/16 10:09 20 06/23/16 10:00 70 06/23/16 09:31 95 Nasal Cannula 2.00 06/23/16 09:00 70 06/23/16 08:00 98.6 70 16 114/62 93 06/23/16 08:00 70 06/23/16 07:00 70 06/23/16 05:00 70 06/23/16 04:00 70 06/23/16 03:00 98.3 70 16 113/67 93 06/23/16 03:00 70 06/23/16 02:00 70 06/23/16 01:00 70 06/23/16 00:00 70 06/22/16 23:00 97.9 70 16 128/70 94 06/22/16 23:00 70 06/22/16 22:00 70 06/22/16 21:00 70 06/22/16 20:00 94 Room Air 06/22/16 20:00 70 06/22/16 19:00 98.3 70 20 93/67 94 06/22/16 19:00 71 06/22/16 18:00 74 06/22/16 17:00 70 Labs: Laboratory Tests Test 06/23/16 12:42 Potassium Level 4.2 MEQ/L (3.5-5.1) Result Diagram: 06/22/16 0640 06/23/16 1242 (1) NSTEMI (non-ST elevated myocardial infarction) (2) Coronary artery disease Plan: statin BB , ASA, statin OOB ambulate pain control pulm toileting continue diuresis lower ext edema / neg for DVT (3) S/P CABG x 3 Plan: on ASA, BB in am , statin OOB, ambulate pulm toileting (4) Acute respiratory failure with hypoxia Plan: resolved (5) SIRS (systemic inflammatory response syndrome) Plan: improved, off antibiotics / appreciate ID for input (6) History of ventricular tachycardia (7) Chronic kidney disease, stage III (moderate) Plan: creatinine 1.61> 2.60 >2.42 nephrology consult US renal : medical renal disease (8) Chronic systolic heart failure Plan: BV ICD (9) Dyslipidemia Plan: statin (10) Hypertension Plan: stable (11) Peripheral vascular disease Plan: no maribeth hose (12) Peripheral neuropathy (13) Pressure ulcer of left heel, unstageable Plan: podiatry following (14) Pressure ulcer of right heel, unstageable (15) Blood loss anemia Plan: s/p PRBC 06/18 monitor (16) Diabetes mellitus Plan: diabetic diet / insulin sliding scale Problem Qualifiers (1) Coronary artery disease: Qualified Code: I25.10 - Coronary artery disease involving [place] coronary artery of [place] heart, angina presence unspecified (2) Peripheral neuropathy: Qualified Code: G62.9 - Peripheral polyneuropathy (3) Diabetes mellitus: Qualified Code: E11.8 - Type 2 diabetes mellitus with complication, with long- term current use of insulin Nicole Lazar Jun 23, 2016 16:22
--- NOTE | 2016-06-23 16:24 | HHI.FF ---
Face to Face Verification Diagnosis: (1) Diabetes mellitus (2) Coronary artery disease (3) Chronic systolic heart failure (4) Chronic kidney disease, stage III (moderate) (5) NSTEMI (non-ST elevated myocardial infarction) (6) S/P CABG x 3 Physical Therapy Order: Evaluate and Treat Home Health Nursing Order: Signs/symptoms of disease process Diabetic education Wound care and dressing changes Instructions: Incentive spirometry Q1 hr x 10, while awake, also use acapella device hourly whole awake Sternal Breast Bone Precautions: NO pushing or pulling, ( pt must use sternal pillow to support chest with all activities and with coughing ( takes up to 3 months breast bone to heal ) Daily incision care: ok to shower daily, no tub bath. Wash all incisions with liquid dial soap, clean wash cloth to each site, rinse and pat dry. Observe for any signs of infection, such as drainage which is dark yellow, mandujano, green or foul smelling. Immediately report to the surgeon any drainage from the chest incision, or legs, and for any abnormal drainage from the chest tube sites. Notify surgeon if any temp >101.5 degrees F. When specialty dressing removed/ or if you do not have one, continue to shower daily as above, then rinse and pat incision dry and paint with betadine daily x 5 days. Allow steri strips to fall off if you have any. Avoid lotions, creams, salves, oils, etc. for the first month F/U appointment: as per [facility] instructions: PCP in 2 weeks, CV surgeon 2 weeks, Practice Support Specialist 3-4 weeks For any questions regarding incisions/ dressing / meds / post op care or above Symptoms, Thursday 8am-5pm Heart & Vascular Surgery Office ( Dr. Langley & Dr. Peoples), After Hours / Nights (5pm -8am) Weekends and Holidays Please call [facility] Cardiac Intermediate Care Unit (CIC) Charge Nurse I have seen patient Parag Polo on 06/23/16. My clinical findings support the need for the requested home health care services because: Deconditioned w/ increased weakness I certify that my clinical findings support that this patient is homebound because: Post-op weakness Nicole Lazar Jun 23, 2016 16:24
--- NOTE | 2016-06-23 19:18 | HHI.NPPN ---
Subjective History of Present Illness 65-year-old male with past medical history of ischemic heart disease, hypertension, diabetes mellitus, chronic kidney disease, peripheral vascular disease, anemia who was admitted with respiratory failure on June 07. I was called to see the patient because of elevated BUN and creatinine. The patient has creatinine of 1.5 on presentation. The patient was diagnosed with elevated troponins on admission and Non-ST elevation Myocardial infarction. He underwent cardiac catheterization on June 09 and underwent coronary artery bypass grafting x3 on June 18. Additional Remarks Patient is alert, no SOB, eating well,feeling better. Review of Systems General Constitutional: Fatigue Cardiovascular Cardiac: Edema, [place] Objective Data Data 06/22/16 06/23/16 19:00 07:00 Intake Total 1080 ml 480 ml Output Total 550 ml 560 ml Balance 530 ml -80 ml Intake Oral 1080 ml 480 ml Output Urine Total 400 ml 430 ml Chest Tube Drainage Total 150 ml 130 ml # Bowel Movements 2 Vital Signs Date Time Temp Pulse Resp B/P Pulse Ox O2 Delivery O2 Flow Rate FiO2 06/23/16 18:00 70 06/23/16 17:14 22 06/23/16 17:00 70 06/23/16 16:00 70 06/23/16 15:09 98.2 70 16 124/68 93 06/23/16 15:00 70 06/23/16 14:00 70 06/23/16 13:00 70 06/23/16 12:00 70 06/23/16 12:00 98.5 70 16 108/64 93 06/23/16 11:00 70 06/23/16 10:09 20 06/23/16 10:00 70 06/23/16 09:31 95 Nasal Cannula 2.00 06/23/16 09:00 70 06/23/16 08:00 98.6 70 16 114/62 93 06/23/16 08:00 70 06/23/16 07:00 70 06/23/16 05:00 70 06/23/16 04:00 70 06/23/16 03:00 98.3 70 16 113/67 93 06/23/16 03:00 70 06/23/16 02:00 70 06/23/16 01:00 70 06/23/16 00:00 70 06/22/16 23:00 97.9 70 16 128/70 94 06/22/16 23:00 70 06/22/16 22:00 70 06/22/16 21:00 70 06/22/16 20:00 94 Room Air 06/22/16 20:00 70 -: 06/22/16 0640 06/23/16 1242 Physical Exam General Appearance: Well Developed, No Acute Distress, Comfortable Neck Neck Exam: Neck Supple Pulmonary Resp Exam: Breath Sounds Equal, No Distress, Rhonchi, Decreased Bases, Diminished Breath Sounds Cardiology CV Exam: Regular Gastrointestinal/Abdomen GI Exam: Soft, Non-Tender, Bowel Sounds Present Extremeties Extremities Exam: Moderate Edema, Pitting Edema Neurologic Neuro Exam: Alert, Awake Psychiatric Psych Exam: Appropriate Responses Assessment/Plan Problem List: (1) Acute renal failure (2) Chronic systolic heart failure (3) Chronic kidney disease, stage III (moderate) (4) Diabetes mellitus Plan Patient has chronic kidney disease. the baseline Creatinine is 1.3-1.5. Has minimal Proteinuria, most likely has Hypertensive or renovascular disease. Now develop KAMARI. Non Oliguric. Renal U/S noted. Continue Lasix, try to keep in negative fluid balance. Patient has CHF, with low EF. Creatinine is slightly better, 2.4. Problem Qualifiers (1) Acute renal failure: Qualified Code: N17.0 - Acute renal failure with tubular necrosis (2) Diabetes mellitus: Qualified Code: E11.8 - Type 2 diabetes mellitus with complication, with long- term current use of insulin Maco Sheehan MD Jun 23, 2016 19:17
[2016-06-23] MEDS: REMOVE OLD PATCH TD SCH (21:00)
[2016-06-23] MEDS: SENNOSIDES 8.6 MG TAB PO SCH (21:00)
[2016-06-23] MEDS: ATORVASTATIN 40 MG TAB PO SCH (21:17)
[2016-06-24] VITALS (25 sets, daily range): BP systolic 107–134; BP diastolic 60–72; PULSE 70–73; RESP 16–20; TEMP 97.8–99; O2SAT 91–95
--- NOTE | 2016-06-24 05:29 | RADRPT ---
EXAM DATE/TIME: 06/24/2016 03:51 [facility] COMPARISON: CHEST SINGLE AP, June 19, 2016, 5:07. INDICATIONS : Post chest tube removal. MEDICAL HISTORY : None. SURGICAL HISTORY : Pacemaker. CABG. ENCOUNTER: Initial ACUITY: 1 day PAIN SCORE: Non-responsive. LOCATION: Bilateral chest FINDINGS: A single view of the chest demonstrates pacer leads overlying right atrium and right ventricle. Cardi omegaly. Basilar airspace disease and pleural effusions, left greater than right. CONCLUSION: 1. Cardiomegaly with basilar airspace disease and effusion, left greater than right. Jean Carlos Kan MD on June 24, 2016 at 5:23 Board Certified Radiologist. This report was verified electronically.
[2016-06-24 06:04] LABS: AUTOMATED NEUTROPHIL # 8.3 TH/MM3 (1.8-7.7); BASOPHIL # 0.1 TH/MM3 (0-0.2); BASOPHIL % 0.5 % (0.0-2.0); EOSINOPHIL # 0.3 TH/MM3 (0-0.4); EOSINOPHIL % 2.5 % (0.0-4.0); HEMO FLAGS DIFF FINAL; LYMPH % 17.6 % (9.0-44.0); LYMPHOCYTE # 2.2 TH/MM3 (1.0-4.8); MEAN CELL VOLUME 87.9 FL (80.0-100.0); MEAN CORPUSCULAR HEMOGLOBIN 29.4 PG (27.0-34.0); MEAN CORPUSCULAR HGB CONC 33.5 % (32.0-36.0); NEUT % 65.4 % (16.0-70.0); PLATELET COUNT 130 TH/MM3 (150-450); RED BLOOD COUNT 3.19 MIL/MM3 (4.50-5.90); RED CELL DISTRIBUTION WIDTH 16.3 % (11.6-17.2); WHITE BLOOD COUNT 12.6 TH/MM3 (4.0-11.0)
[2016-06-24] MEDS: oxyCODONE/ACETAMINOPHEN 5 MG/325 MG TAB PO PRN ×4 (06:09→19:55)
[2016-06-24] MEDS: INSULIN ASPART SUPPLEMENTAL SCALE SQ SCH ×4 (06:23→22:47)
[2016-06-24 06:26] LABS: BICARBONATE 24.8 MEQ/L (21.0-32.0); POTASSIUM 4.3 MEQ/L (3.5-5.1)
--- NOTE | 2016-06-24 08:53 | HHI.PR ---
Subjective Remarks sitting on the chair-having his breakfast. has some pain to both legs and some pain at the site of previous chest tube. otherwise no other complaints. d/w the RN and no acute issues over night. Objective Vitals Vital Signs Date Time Temp Pulse Resp B/P Pulse Ox O2 Delivery O2 Flow Rate FiO2 06/24/16 07:56 70 06/24/16 06:00 70 06/24/16 05:00 70 06/24/16 04:00 99.0 70 16 134/72 91 06/24/16 04:00 70 06/24/16 03:00 70 06/24/16 02:33 70 06/24/16 01:08 70 06/24/16 00:00 70 06/23/16 23:20 98.8 70 16 123/71 93 06/23/16 23:00 70 06/23/16 22:00 70 06/23/16 21:00 70 06/23/16 20:00 70 06/23/16 19:40 98.1 70 16 110/59 95 06/23/16 19:00 70 06/23/16 18:00 70 06/23/16 17:14 22 06/23/16 17:00 70 06/23/16 16:00 70 06/23/16 15:09 98.2 70 16 124/68 93 06/23/16 15:00 70 06/23/16 14:00 70 06/23/16 13:00 70 06/23/16 12:00 70 06/23/16 12:00 98.5 70 16 108/64 93 06/23/16 11:00 70 06/23/16 10:09 20 06/23/16 10:00 70 06/23/16 09:31 95 Nasal Cannula 2.00 06/23/16 09:00 70 I/O 06/23/16 06/23/16 06/23/16 06/24/16 06/24/16 06/24/16 07:00 15:00 23:00 07:00 15:00 23:00 Intake Total 480 ml 480 ml 480 ml Output Total 560 ml 1450 ml 750 ml Balance -80 ml -970 ml -270 ml Intake Oral 480 ml 480 ml 480 ml Output Urine Total 430 ml 1450 ml 750 ml Chest Tube Drainage Total 130 ml # Voids 1 # Bowel Movements 1 1 Result Diagram: 06/24/1651606/24/16 05 Imaging Last Impressions Chest X-Ray 06/24/16 0600 Signed Impressions: Service Date/Time: Friday, June 24, 2016 03:51 - CONCLUSION: 1. Cardiomegaly with basilar airspace disease and effusion, left greater than right. Jean Carlos Kan MD Lower Extremity Ultrasound 06/23/16 0000 Signed Impressions: Service Date/Time: Thursday, June 23, 2016 11:07 - CONCLUSION: Negative for deep venous thrombosis. History of greater saphenous vein removal for bypass on the right.. Frank Walters MD FACR Renal Ultrasound 06/20/16 0000 Signed Impressions: Service Date/Time: Monday, June 20, 2016 19:26 - CONCLUSION: 2 cysts involving the left kidney. No hydronephrosis. Mild increase in cortical echogenicity bilaterally Florencio Gomez MD Abdomen/Pelvis CT 06/17/16 0000 Signed Impressions: Service Date/Time: Friday, June 17, 2016 11:44 - CONCLUSION: 1. Uncomplicated colonic diverticulosis. 2. 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 3. Ventral abdominal wall hernia containing only fat. 4. Enlarged prostate. 5. Small bilateral pleural effusions (right larger than left). 6. Bibasilar alveolar consolidations consistent with compressive atelectasis and/or infiltrates. 7. Cardiomegaly. 8. 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 9. Left renal cysts. 10. Degenerative changes throughout the thoracolumbar spine. South Munoz MD Carotid Artery Ultrasound 06/10/16 0000 Signed Impressions: Service Date/Time: Friday, June 10, 2016 16:11 - CONCLUSION: Mild to moderate plaquing bilaterally with less than 50%% diameter stenosis by velocity criteria. Gregorio Walsh MD CT Angiography 06/07/16 0000 Signed Impressions: Service Date/Time: Tuesday, June 07, 2016 15:18 - CONCLUSION: 1. No pulmonary embolus. 2. Very small, bilateral pleural effusions and patchy bilateral airspace opacities. 3. Mildly enlarged mediastinal lymph nodes, nonspecific. 4. Several nodules up to 2 cm in size of the left adrenal gland, incompletely characterized but statistically most likely adenomas. There is a cyst of the left kidney. 5. Coronary artery calcification. Florencio Hamilton MD Objective Remarks GENERAL: This is a well-nourished, well-developed patient, in no apparent distress. CARDIOVASCULAR: Regular rate and regular rhythm without murmurs, gallops, or rubs. RESPIRATORY: Clear to auscultation. Breath sounds equal bilaterally. No wheezes , rales, or rhonchi. chest tube in place. GASTROINTESTINAL: Abdomen soft, non-tender, nondistended. Normal, active bowel sounds MUSCULOSKELETAL: Extremities without clubbing, cyanosis, or edema. NEURO: Alert & Oriented x4 to person, place, time, situation. Moves all ext x4 Procedures 06/16- EGD- retained food 06/18- CABG Medications and IVs Current Medications IV Flush 2 ml 2 ml UNSCH PRN IVF FLUSH AFTER USING IV ACCESS Last administered on 06/07/16 03:39; Start 06/07/16 at 02:00; Stop 06/07/16 at 04:26; Status DC Nitroglycerin/ Dextrose (Nitroglycerin-Dextrose Inj) 250 ml @ 0 mls/hr TITRATE ONCE IV Last administered on 06/07/16 02:07; Start 06/07/16 at 02:00; Stop 02/13 at 02:01; Status DC Lorazepam 0.5 mg 0.5 mg ONCE ONCE IV PUSH Last administered on 06/07/16 02:07 ; Start 06/07/16 at 02:00; Stop 06/07/16 at 02:01; Status DC Cefepime HCl 2000 mg/Sodium Chloride 100 ml @ 200 mls/hr ONCE ONCE IV Last administered on 06/07/16 05:27; Start 06/07/16 at 03:00; Stop 06/07/16 at 03:29 ; Status DC Azithromycin/ Sodium Chloride (Zithromax Inj/ NS 250 ml Inj) 250 ml @ 250 mls/ hr ONCE ONCE IV Last administered on 06/07/16 03:38; Start 06/07/16 at 03:00 ; Stop 06/07/16 at 03:59; Status DC Bumetanide (Bumex Inj) 1 mg ONCE ONCE IV PUSH Last administered on 06/07/16 03:39; Start 06/07/16 at 03:00; Stop 06/07/16 at 03:01; Status DC Lorazepam (Ativan Inj) 0.5 mg ONCE ONCE IV PUSH Last administered on 03:39; Start 06/07/16 at 03:00; Stop 06/07/16 at 03:01; Status DC Aspirin (Aspirin Chew) 162 mg ONCE ONCE CHEW Last administered on 06/07/16 03 :45; Start 06/07/16 at 03:45; Stop 06/07/16 at 03:46; Status DC IV Flush (NS Flush) 2 ml UNSCH PRN IV FLUSH FLUSH AFTER USING IV ACCESS; Start 06/07/16 at 04:30; Stop 06/07/16 at 06:54; Status DC IV Flush (NS Flush) 2 ml BID IV FLUSH ; Start 06/07/16 at 09:00; Stop 06/07/16 at 09:00; Status DC Acetaminophen (Tylenol) 650 mg Q6H PRN PO PAIN 1-10 AND/OR FEVER >101F; Start 06/07/16 at 04:30; Stop 06/07/16 at 06:54; Status DC Pantoprazole Sodium (Protonix Inj) 40 mg DAILY IV ; Start 06/07/16 at 09:00; Stop 06/07/16 at 09:00; Status DC Ondansetron HCl (Zofran Inj) 4 mg Q6H PRN IV NAUSEA OR VOMITING; Start at 04:30; Stop 06/18/16 at 14:47; Status DC Albuterol Sulfate (Albuterol Neb) 2.5 mg Q2HR NEB PRN INH SOB/WHEEZING; Start 06/07/16 at 04:30; Stop 06/18/16 at 16:15; Status DC Enoxaparin Sodium (Lovenox Inj) 40 mg Q24H SQ Last administered on 06/07/16 11 :16; Start 06/07/16 at 09:00; Stop 06/08/16 at 09:08; Status DC Miscellaneous Information 1 Q361D XX ; Start 06/07/16 at 04:30; Stop 06/19/16 at 09:14; Status DC Chlorhexidine Gluconate (Chlorhexidine 2% Cloth) Taper DAILY@04 TOP Last administered on 06/18/16 04:00; Start 06/08/16 at 04:00; Stop 06/19/16 at 09:14 ; Status DC Chlorhexidine Gluconate (Chlorhexidine 2% Cloth) 3 pack UNSCH PRN TOP HYGIENIC CARE; Start 06/07/16 at 04:30; Stop 06/19/16 at 09:14; Status DC Bumetanide 1 mg 1 mg Q12H IV PUSH Last administered on 06/09/16 02:44; Start 06/07/16 at 15:00; Stop 06/09/16 at 09:05; Status DC Cefepime HCl 2000 mg/Sodium Chloride 100 ml @ 200 mls/hr Q12H IV Last administered on 06/19/16 02:49; Start 06/07/16 at 15:00; Stop 06/19/16 at 13:47 ; Status DC Azithromycin/ Sodium Chloride (Zithromax Inj/ NS 250 ml Inj) 250 ml @ 250 mls/ hr Q24H IV Last administered on 06/19/16 02:50; Start 06/08/16 at 03:00; Stop 06/19/16 at 13:48; Status DC Dextrose (D50w (Vial) Inj) 25 ml UNSCH PRN IV PUSH HYPOGLYCEMIA-SEE COMMENTS; Start 06/07/16 at 04:30; Stop 06/18/16 at 15:09; Status DC Glucagon (Glucagon Inj) 1 mg UNSCH PRN OTHER HYPOGLYCEMIA-SEE COMMENTS; Start 06/07/16 at 04:30; Stop 06/18/16 at 15:09; Status DC Insulin Aspart (NovoLOG SUPPLEMENTAL SCALE) 1 Q4HR SQ Last administered on 06/17 21:01; Start 06/07/16 at 04:30; Stop 06/18/16 at 15:09; Status DC Aspirin (Aspirin Chew) 81 mg DAILY CHEW Last administered on 06/09/16 09:38; Start 06/07/16 at 09:00; Stop 06/09/16 at 15:32; Status DC Ticagrelor (Brilinta) 90 mg BID PO Last administered on 06/11/16 08:13; Start 06/07/16 at 09:00; Stop 06/19/16 at 09:14; Status DC Carvedilol (Coreg) 6.25 mg Q12HR PO Last administered on 06/18/16 08:18; Start 06/07/16 at 09:00; Stop 06/19/16 at 09:25; Status DC Amlodipine Besylate (Norvasc) 2.5 mg DAILY PO Last administered on 06/23/16 09 :07; Start 06/07/16 at 09:00 Amiodarone HCl (Cordarone) 200 mg DAILY PO Last administered on 06/18/16 08:17 ; Start 06/07/16 at 09:00; Stop 06/18/16 at 14:37; Status DC Atorvastatin Calcium (Lipitor) 20 mg DAILY PO Last administered on 06/19/16 08 :35; Start 06/07/16 at 09:00; Stop 06/19/16 at 13:51; Status DC Gabapentin (Neurontin) 300 mg TID PO Last administered on 06/22/16 12:44; Start 06/07/16 at 09:00; Stop 06/22/16 at 13:15; Status DC Insulin Detemir (Levemir Inj) 8 units Q12HR SQ Last administered on 06/17/16 20:50; Start 06/07/16 at 09:00; Stop 06/18/16 at 15:09; Status DC IV Flush (NS Flush) 2 ml UNSCH PRN IV FLUSH FLUSH AFTER USING IV ACCESS Last administered on 06/08/16 14:37; Start 06/07/16 at 06:45; Stop 06/09/16 at 15:31 ; Status DC IV Flush (NS Flush) 2 ml BID IV FLUSH Last administered on 06/08/16 20:40; Start 06/07/16 at 09:00; Stop 06/09/16 at 15:31; Status DC Acetaminophen (Tylenol) 650 mg Q6H PRN PO PAIN 1-10 AND/OR FEVER >101F; Start 06/07/16 at 06:45; Stop 06/18/16 at 14:36; Status DC Acetaminophen/ Hydrocodone Bitart (Webb 5-325 Mg) 1 tab Q4H PRN PO PAIN SCALE 1 TO 5 Last administered on 06/08/16 22:35; Start 06/07/16 at 06:45; Stop 06/09/16 at 09:28; Status DC Morphine Sulfate (Morphine Inj) 2 mg Q2H PRN IV PAIN SCALE 6 TO 10 Last administered on 06/11/16 17:05; Start 06/07/16 at 06:45; Stop 06/11/16 at 18:26 ; Status DC Pantoprazole Sodium (Protonix) 40 mg DAILY PO Last administered on 06/16/16 08 :40; Start 06/07/16 at 09:00; Stop 06/16/16 at 10:09; Status DC Artificial Tears (Tears Naturale Opth Soln) 1 drop TID EACH EYE Last administered on 06/19/16 09:00; Start 06/07/16 at 09:00 Ondansetron HCl (Zofran Inj) 4 mg Q6H PRN IV NAUSEA OR VOMITING; Start at 06:45; Stop 06/07/16 at 06:54; Status DC Docusate Sodium (Colace) 100 mg BID PO Last administered on 06/15/16 20:14; Start 06/07/16 at 09:00; Stop 06/19/16 at 09:14; Status DC Sennosides (Senokot) 17.2 mg Q12H PRN PO CONSTIPATION; Start 06/07/16 at 06:45 ; Stop 06/19/16 at 09:14; Status DC Albuterol/ Ipratropium (Duoneb Neb) 1 ampule Q6HR NEB INH Last administered on 06/11/16 07:43; Start 06/07/16 at 10:00; Stop 06/11/16 at 10:00; Status DC Miscellaneous Information 1 Q361D XX ; Start 06/07/16 at 06:45; Stop 06/07/16 at 06:54; Status DC Chlorhexidine Gluconate (Chlorhexidine 2% Cloth) 3 pack Taper DAILY@04 TOP ; Start 06/08/16 at 04:00; Stop 06/08/16 at 04:00; Status DC Chlorhexidine Gluconate (Chlorhexidine 2% Cloth) 3 pack UNSCH PRN TOP HYGIENIC CARE; Start 06/07/16 at 06:45; Stop 06/07/16 at 06:54; Status DC Linezolid (Zyvox) 600 mg Q12HR PO Last administered on 06/19/16 08:35; Start 06/07/16 at 21:00; Stop 06/19/16 at 13:48; Status DC Acetylcysteine 600 mg 600 mg BID PO Last administered on 06/08/16 20:40; Start 06/07/16 at 21:00; Stop 06/09/16 at 09:01; Status DC Sodium Bicarbonate/ Sterile Water (Sodium Bicarbonate 8.4% Inj/Sterile Water For Inj) 1,000 ml @ 100 mls/hr Q10H IV Last administered on 06/07/16 14:49; Start 06/07/16 at 15:00; Stop 06/08/16 at 00:59; Status DC Iohexol (Omnipaque 350 Inj) 50 ml STK-MED ONCE IV ; Start 06/07/16 at 15:22; Stop 06/07/16 at 15:29; Status DC Heparin Sodium (Porcine) (Heparin Inj) 5,000 units UNSCH PRN IV APTT LESS THAN 25; Start 06/08/16 at 15:15; Stop 06/16/16 at 09:25; Status DC Heparin Sodium (Porcine) 2500 units 2,500 units UNSCH PRN IV APTT 25 TO 39; Start 06/08/16 at 15:15; Stop 06/16/16 at 09:25; Status DC Heparin Sodium/ Dextrose 250 ml @ 0 mls/hr TITRATE IV Last administered on 06/15 20:17; Start 06/08/16 at 09:15; Stop 06/16/16 at 09:25; Status DC Sodium Chloride (NS 1000 ml Inj) 1,000 ml @ 50 mls/hr Q20H IV Last administered on 06/09/16 09:30; Start 06/09/16 at 10:00; Stop 06/10/16 at 07:45 ; Status DC Acetaminophen/ Hydrocodone Bitart 2 tab 2 tab Q4H PRN PO PAIN SCALE 6 TO 10 Last administered on 06/17/16 15:25; Start 06/09/16 at 10:45; Stop 06/18/16 at 14:35; Status DC Heparin Sodium/ Sodium Chloride (Heparin-NS/Pf Inj) 500 ml @ As Directed STK- MED ONCE .ROUTE Last administered on 06/09/16 13:07; Start 06/09/16 at 13:07; Stop 06/09/16 at 13:08; Status DC Midazolam HCl (Versed Inj) 2 mg STK-MED ONCE .ROUTE Last administered on 13:08; Start 06/09/16 at 13:08; Stop 06/09/16 at 13:09; Status DC Fentanyl Citrate (fentaNYL INJ) 100 mcg STK-MED ONCE .ROUTE Last administered on 06/09/16 13:08; Start 06/09/16 at 13:08; Stop 06/09/16 at 13:09; Status DC Verapamil HCl (Isoptin Inj) 5 mg STK-MED ONCE .ROUTE Last administered on 13:08; Start 06/09/16 at 13:08; Stop 06/09/16 at 13:09; Status DC Heparin Sodium (Porcine) 27168 units 10,000 units STK-MED ONCE .ROUTE Last administered on 06/09/16 13:08; Start 06/09/16 at 13:08; Stop 06/09/16 at 13:09 ; Status DC Nitroglycerin 5 ml @ As Directed STK-MED ONCE .ROUTE Last administered on 13:08; Start 06/09/16 at 13:08; Stop 06/09/16 at 13:09; Status DC Tirofiban/Sodium Chloride (Aggrastat Infusion Inj) 250 ml @ As Directed STK- MED ONCE IV Last administered on 06/09/16 14:58; Start 06/09/16 at 14:58; Stop 06/09/16 at 14:59; Status DC Aspirin (Aspirin Chew) 81 mg DAILY PO Last administered on 06/18/16 08:18; Start 06/10/16 at 09:00; Stop 06/18/16 at 15:07; Status DC IV Flush (NS Flush) 2 ml UNSCH PRN IVF FLUSH AFTER USING IV ACCESS Last administered on 06/18/16 08:18; Start 06/09/16 at 15:30; Stop 06/18/16 at 14:38 ; Status DC IV Flush (NS Flush) 2 ml BID IVF Last administered on 06/18/16 08:19; Start at 21:00; Stop 06/18/16 at 14:38; Status DC Miscellaneous Information 1 ONCE ONCE XX ; Start 06/09/16 at 15:30; Stop at 15:31; Status DC Iohexol (OMNIPAQUE 350 INJ (Backing In Machine Tender)) 100 ml STK-MED ONCE OTHER ; Start at 15:00; Stop 06/09/16 at 15:47; Status DC Fentanyl Citrate (fentaNYL INJ) 50 mcg ONCE ONCE IV ; Start 06/09/16 at 13:29; Stop 06/09/16 at 17:40; Status DC Midazolam HCl (Versed Inj) 2 mg ONCE ONCE IV ; Start 06/09/16 at 13:30; Stop at 17:40; Status DC Verapamil HCl (Isoptin Inj) 2.5 mg ONCE ONCE IV PUSH ; Start 06/09/16 at 15:42 ; Stop 06/09/16 at 15:43; Status Cancel Nitroglycerin (Nitroglycerin Inj) 200 mcg ONCE ONCE OTHER ; Start 06/09/16 at 18:00; Stop 06/09/16 at 18:01; Status DC Heparin Sodium (Porcine) (Heparin Inj) 2,500 units ONCE ONCE IART ; Start 06/09 at 15:42; Stop 06/09/16 at 17:49; Status DC Verapamil HCl (Isoptin Inj) 2.5 mg ONCE ONCE OTHER ; Start 06/09/16 at 18:00; Stop 06/09/16 at 18:01; Status DC Heparin Sodium (Porcine) (Heparin Inj) 5,000 units ONCE ONCE IV ; Start at 13:40; Stop 06/09/16 at 17:53; Status DC Heparin Sodium (Porcine) 2000 units 2,000 units ONCE ONCE IV ; Start 06/09/16 at 14:40; Stop 06/09/16 at 17:53; Status DC Tirofiban/Sodium Chloride 100 ml @ 1,200 mls/hr BOLUS ONCE IV ; Start at 15:05; Stop 06/09/16 at 18:06; Status DC Tirofiban/Sodium Chloride (Aggrastat Infusion Inj) 250 ml @ 18 mls/hr [id number] IV Last administered on 06/10/16t 03:26; Start 06/09/16 at 15:00; Stop at 09:00; Status DC Alprazolam (Xanax) 0.5 mg Q8H PRN PO ANXIETY Last administered on 06/14/16 16: 33; Start 06/10/16 at 08:00; Stop 06/15/16 at 08:43; Status DC Nicotine (Habitrol 14 Mg Patch.24 Hr) 1 patch DAILY TD Last administered on 09:06; Start 06/10/16 at 09:00 Miscellaneous Information 1 HS TD Last administered on 06/23/16 21:00; Start 06/10/16 at 21:00 Bumetanide (Bumex Inj) 1 mg BID@09,18 IV PUSH Last administered on 06/18/16 08 :17; Start 06/10/16 at 09:00; Stop 06/19/16 at 09:14; Status DC IV Flush (NS Flush) 2 ml BID IV FLUSH Last administered on 06/23/16 21:17; Start 06/10/16 at 21:00 IV Flush 2 ml 2 ml UNSCH PRN IV FLUSH FLUSH AFTER USING IV ACCESS Last administered on 06/21/16 18:49; Start 06/10/16 at 15:30 Papaverine HCl 60 mg/Nitroglycerin 100 mcg/Diltiazem HCl 100 mg/Sodium Chloride 100.0 ml @ 0 mls/hr MULTI PURPOSE MACHINE 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 ; Start 06/10/16 at 15:30; Stop at 15:29; Status DC Cefazolin Sodium 500 mg/Sodium Chloride 505 ml @ 0 mls/hr MULTI PURPOSE MACHINE 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 ; Start 06/10/16 at 15:30; Stop 06/17/16 at 15:29; Status DC Cefazolin Sodium/ Dextrose (Ancef 2 Gm Premix) 50 ml @ 150 mls/hr MULTI PURPOSE MACHINE OPERATOR IV Last administered on 06/18/16 11:16; Start 06/10/16 at 15:30; Stop 06/17/16 at 15:29; Status DC Metoprolol Tartrate (Lopressor) 12.5 mg MULTI PURPOSE MACHINE OPERATOR PO ; Start 06/11/16 at 05:00; Stop 06/17/16 at 04:59; Status DC Chlorhexidine Gluconate 1 applic 1 applic MULTI PURPOSE MACHINE OPERATOR TOPICAL ; Start 06/10/16 at 15:30; Stop 06/17/16 at 15:29; Status DC Insulin Human Regular 100 units/ Sodium Chloride 101 ml @ 0 mls/hr MULTI PURPOSE MACHINE OPERATOR IV ; Start 06/10/16 at 15:30; Stop 06/17/16 at 15:29; Status DC Tirofiban/Sodium Chloride 2500 mcg/ Syringe / Bag 50 ml @ 600 mls/hr BOLUS ONCE IV Last administered on 06/11/16 13:01; Start 06/11/16 at 11:45; Stop at 12:30; Status DC Tirofiban/Sodium Chloride 2500 mcg/ Syringe / Bag 50 ml @ 600 mls/hr BOLUS ONCE IV ; Start 06/11/16 at 11:45; Stop 06/11/16 at 11:53; Status DC Tirofiban/Sodium Chloride (Aggrastat Infusion Inj) 250 ml @ 18.018 mls/ hr [id number] IV Last administered on 06/16/16 04:02; Start 06/11/16 at 13:00; Stop 06/16/16 at 09:26; Status DC Morphine Sulfate (Morphine Inj) 1 mg Q4H PRN IV 7-10; Start 06/11/16 at 18:30; Status Cancel Morphine Sulfate (Morphine Inj) 2 mg Q2H PRN IV PAIN SCALE 6 TO 10 Last administered on 06/18/16 03:00; Start 06/11/16 at 18:30; Stop 06/19/16 at 09:14 ; Status DC Hydromorphone HCl 0.5 mg 0.5 mg Q4H PRN IV PUSH PAIN SCALE 7-10 Last administered on 06/18/16 05:42; Start 06/12/16 at 15:00; Stop 06/19/16 at 09:14 ; Status DC Potassium Chloride 100 ml @ 50 mls/hr Q2H PRN IV For Potassium 2.8 - 3.2 mEq/L ; Start 06/13/16 at 07:45; Stop 06/18/16 at 14:43; Status DC Potassium Chloride 100 ml @ 50 mls/hr Q2H PRN IV For Potassium 2.8 - 3.2 mEq/L ; Start 06/13/16 at 07:45; Stop 06/18/16 at 14:43; Status DC Potassium Chloride 100 ml @ 25 mls/hr UNSCH PRN IV For Potassium 3.3 - 3.5 mEq /L; Start 06/13/16 at 07:45; Stop 06/18/16 at 14:43; Status DC Potassium Chloride 100 ml @ 50 mls/hr Q2H PRN IV For Potassium 3.3 - 3.5 mEq/L ; Start 06/13/16 at 07:45; Stop 06/18/16 at 14:43; Status DC Magnesium Sulfate/ Sodium Chloride (Magnesium Sulfate Inj/NS Inj) 100 ml @ 50 mls/hr UNSCH PRN IV For Magnesium 0.9 - 1.1 mg/dL; Start 06/13/16 at 07:45; Stop 06/19/16 at 09:14; Status DC Magnesium Oxide 800 mg 800 mg UNSCH PRN PO For Magnesium 1.2 - 1.6 mg/dL; Start 06/13/16 at 07:45; Stop 06/18/16 at 14:43; Status DC Magnesium Sulfate/ Sodium Chloride (Magnesium Sulfate Inj/NS Inj) 100 ml @ 50 mls/hr UNSCH PRN IV For Magnesium 1.2 - 1.6 mg/dL; Start 06/13/16 at 07:45; Stop 06/19/16 at 09:15; Status DC Potassium Phosphate 2000 mg 2,000 mg Q4H PRN PO For Phosphorus < 2.5 mg/dL; Start 06/13/16 at 07:45; Stop 06/18/16 at 14:43; Status DC Sodium Phosphate/ Sodium Chloride (Sodium Phosphate Inj/NS 250 ml Inj) 250 ml @ 42 mls/hr UNSCH PRN IV For Phosphorus < 2.5 mg/dL; Start 06/13/16 at 07:45; Stop 06/19/16 at 09:15; Status DC Potassium Phosphate 2000 mg 2,000 mg UNSCH PRN PO/TUBE SEE LABEL COMMENTS; Start 06/13/16 at 07:45; Stop 06/18/16 at 14:43; Status DC Potassium Phosphate 30 mmol/ Sodium Chloride 260 ml @ 42 mls/hr UNSCH PRN IV SEE LABEL COMMENTS; Start 06/13/16 at 07:45; Stop 06/19/16 at 09:16; Status DC Sodium Chloride (NS 250 ml Inj) 250 ml @ 15 mls/hr ONCE ONCE IV ; Start at 06:00; Stop 06/14/16 at 22:39; Status DC Lorazepam 0.5 mg 0.5 mg Q6H PRN PO anxiety Last administered on 06/19/16 09:23 ; Start 06/15/16 at 09:00; Stop 06/22/16 at 11:43; Status DC Sodium Chloride 250 ml @ 15 mls/hr ONCE ONCE IV Last administered on 06:15; Start 06/16/16 at 06:15; Stop 06/16/16 at 22:54; Status DC Pantoprazole Sodium/Sodium Chloride (Protonix Inj/NS Inj) 100 ml @ 10 mls/hr CONTINUOUS IV Last administered on 06/20/16 06:01; Start 06/16/16 at 10:00; Stop 06/20/16 at 11:04; Status DC Propofol (Diprivan 200 Mg/20 ml Inj) 40 mg STK-MED ONCE IV ; Start 06/16/16 at 19:34; Stop 06/16/16 at 19:35; Status DC Miscellaneous Information ALL NURSING DEPARTME... UNSCH PRN XX SEE LABEL COMMENTS; Start 06/16/16 at 19:45; Stop 06/17/16 at 19:44; Status DC Diatrizoate Meglum/ Diatrizoate Sod ( Gastroview Liq) 18 ml ONCE ONCE PO ; Start 06/16/16 at 21:45; Stop 06/16/16 at 21:46; Status DC Diatrizoate Meglum/ Diatrizoate Sod ( Gastroview Liq) 18 ml ONCE ONCE PO Last administered on 06/17/16 06:58; Start 06/17/16 at 07:00; Stop 06/17/16 at 07:01; Status DC Heparin Sodium (Porcine) (Heparin Inj) 10,000 units STK-MED ONCE .ROUTE Last administered on 06/18/16 11:14; Start 06/18/16 at 08:24; Stop 06/18/16 at 08:25 ; Status DC Vancomycin HCl (Vancomycin Inj) 2,000 mg STK-MED ONCE .ROUTE ; Start 06/18/16 at 08:25; Stop 06/18/16 at 08:26; Status DC Heparin Sodium (Porcine) (Heparin Inj) 40,000 units STK-MED ONCE .ROUTE ; Start 06/18/16 at 08:25; Stop 06/18/16 at 08:26; Status DC Vancomycin HCl (Vancomycin Inj) 3,000 mg STK-MED ONCE .ROUTE Last administered on 06/18/16 11:18; Start 06/18/16 at 08:49; Stop 06/18/16 at 08:50; Status DC Midazolam HCl (Versed Inj) 10 mg STK-MED ONCE .ROUTE ; Start 06/18/16 at 08:57; Stop 06/18/16 at 08:58; Status DC Fentanyl Citrate 1000 mcg 1,000 mcg STK-MED ONCE .ROUTE ; Start 06/18/16 at 08: 57; Stop 06/18/16 at 08:58; Status DC Dexmedetomidine HCl 50 ml @ 0 mls/hr TITRATE IV Last administered on 06/18/16 16:10; Start 06/18/16 at 14:15; Stop 06/19/16 at 09:16; Status DC Nitroglycerin/ Dextrose 250 ml @ 0 mls/hr TITRATE IV ; Start 06/18/16 at 14:15; Stop 06/19/16 at 09:17; Status DC Dobutamine HCl/ Dextrose 250 ml @ 14.76 mls/ hr [id number] IV ; Start 06/18/16 at 14:14; Stop 06/19/16 at 09:17; Status DC Dopamine HCl/ Dextrose 500 ml @ 0 mls/hr TITRATE IV ; Start 06/18/16 at 14:15; Stop 06/19/16 at 09:18; Status DC Epinephrine HCl 4 mg/Dextrose 250 ml @ 0 mls/hr TITRATE IV ; Start 06/18/16 at 14:15; Stop 06/19/16 at 09:18; Status DC Phenylephrine HCl 40 mg/Dextrose 500 ml @ 0 mls/hr TITRATE IV ; Start 06/18/16 at 14:15; Stop 06/19/16 at 09:18; Status DC Clevidipine (Cleviprex Inj) 50 ml @ 0 mls/hr TITRATE IV ; Start 06/18/16 at 14: 15; Stop 06/19/16 at 09:19; Status DC Albumin Human 12.5 gm 12.5 gm UNSCH PRN IV SEE LABEL COMMENTS Last administered on 06/18/16 23:15; Start 06/18/16 at 14:15; Stop 06/19/16 at 09:24 ; Status DC Lactated Ringer's (Lr 1000 ml Inj) 500 ml @ 500 mls/hr Q1H PRN IV SEE LABEL COMMENTS; Start 06/18/16 at 14:14 Miscellaneous Information (Post-op Orders (for Pharmacy)) STAT ONCE OTHER ; Start 06/18/16 at 14:15; Stop 06/18/16 at 15:06; Status DC Aspirin (Aspirin Chew) 81 mg DAILY PO Last administered on 06/23/16 09:07; Start 06/19/16 at 09:00 Clopidogrel Bisulfate (Plavix) 75 mg DAILY PO Last administered on 06/19/16 08 :34; Start 06/19/16 at 09:00; Stop 06/20/16 at 18:03; Status DC Pantoprazole Sodium (Protonix) 40 mg DAILY@06 PO ; Start 06/19/16 at 06:00; Stop 06/19/16 at 06:00; Status DC Amiodarone HCl (Cordarone) 200 mg Q12HR PO Last administered on 06/23/16 21:17 ; Start 06/18/16 at 21:00; Stop 07/02/16 at 09:00 Acetaminophen (Tylenol) 650 mg Q4H PRN PO TEMPERATURE > 101 F; Start 06/18/16 at 14:15 Acetaminophen (Tylenol Supp) 650 mg Q4H PRN RECTAL TEMPERATURE > 101 F; Start 06/18/16 at 14:15; Stop 06/19/16 at 09:24; Status DC Acetaminophen (Ofirmev Inj) 1,000 mg Q6H IV Last administered on 06/19/16 08: 30; Start 06/18/16 at 15:00; Stop 06/19/16 at 09:02; Status DC Morphine Sulfate (Morphine Inj) 1 mg Q10M PRN IV PAIN SCALE 1 TO 5; Start 06/18 at 14:15; Stop 06/19/16 at 09:24; Status DC Meperidine HCl (Demerol Inj) 12.5 mg Q4H PRN IV SEE LABEL COMMENTS; Start 06/18 at 14:15; Stop 06/19/16 at 09:16; Status DC Acetaminophen/ Hydrocodone Bitart (Webb 5-325 Mg) 1 tab Q3H PRN PO PAIN SCALE 1 TO 5 Last administered on 06/19/16 02:57; Start 06/18/16 at 14:15; Stop 06/22/16 at 13:15; Status DC Acetaminophen/ Hydrocodone Bitart (Webb 5-325 Mg) 2 tab Q3H PRN PO PAIN SCALE 6 TO 10 Last administered on 06/22/16 12:45; Start 06/18/16 at 14:15; Stop 06/22/16 at 13:15; Status DC Fentanyl Citrate (fentaNYL INJ) 25 mcg Q1H PRN IV BREAKTHROUGH PAIN Last administered on 06/19/16 03:33; Start 06/18/16 at 14:15; Stop 06/19/16 at 09:24 ; Status DC Ondansetron HCl (Zofran Inj) 4 mg Q6H PRN IV PUSH NAUSEA OR VOMITING Last administered on 06/19/16 03:27; Start 06/18/16 at 14:15 Hydralazine HCl (Apresoline Inj) 10 mg Q4H PRN IV SEE LABEL COMMENTS; Start at 14:15; Stop 06/19/16 at 09:24; Status DC Metoprolol Tartrate 2.5 mg 2.5 mg Q1H PRN IV PUSH SEE LABEL COMMENTS; Start at 14:15; Stop 06/19/16 at 09:24; Status DC Potassium Chloride 100 ml @ 50 mls/hr UNSCH PRN IV SEE LABEL COMMENTS Last administered on 06/18/16 17:38; Start 06/18/16 at 14:15; Stop 06/19/16 at 09:24 ; Status DC Potassium Chloride 100 ml @ 50 mls/hr UNSCH PRN IV SEE LABEL COMMENTS; Start 06/18/16 at 14:15; Stop 06/19/16 at 09:24; Status DC Potassium Chloride (KCl 20 Meq Premix Inj) 100 ml @ 50 mls/hr UNSCH PRN IV SEE LABEL COMMENTS; Start 06/18/16 at 14:15; Stop 06/19/16 at 09:24; Status DC Potassium Chloride (KCl) 20 meq UNSCH PRN PO SEE LABEL COMMENTS; Start at 14:15; Stop 06/18/16 at 15:07; Status DC Potassium Chloride 40 meq 40 meq UNSCH PRN PO SEE LABEL COMMENTS; Start at 14:15; Stop 06/18/16 at 15:07; Status DC Magnesium Sulfate 2 gm/Sodium Chloride 104 ml @ 100 mls/hr UNSCH PRN IV SEE LABEL COMMENTS; Start 06/18/16 at 14:15; Stop 06/20/16 at 18:05; Status DC Magnesium Sulfate 2 gm/Sodium Chloride 104 ml @ 50 mls/hr UNSCH PRN IV SEE LABEL COMMENTS; Start 06/18/16 at 14:15; Stop 06/20/16 at 18:05; Status DC Calcium Chloride/ Sodium Chloride (Calcium Chloride Inj/NS Inj) 110 ml @ 100 mls/hr UNSCH PRN IV SEE LABEL COMMENTS; Start 06/18/16 at 14:15; Stop 06/19/16 at 09:25; Status DC Calcium Chloride 0.5 gm 0.5 gm UNSCH PRN IV SEE LABEL COMMENTS; Start 06/18/16 at 14:15; Stop 06/19/16 at 09:16; Status DC Insulin Human Regular/Sodium Chloride (NovoLIN R (IV INFUSION)/NS Inj) 100 ml @ 0 mls/hr TITRATE IV ; Start 06/18/16 at 14:15; Stop 06/19/16 at 09:25; Status DC Dextrose 25 ml 25 ml UNSCH PRN IV PUSH HYPOGLYCEMIA-SEE COMMENTS; Start at 14:15; Stop 06/19/16 at 09:26; Status DC Cefazolin Sodium/ Dextrose (Ancef 2 Gm Premix) 50 ml @ 100 mls/hr Q8H IV Last administered on 06/20/16 02:12; Start 06/18/16 at 18:00; Stop 06/20/16 at 02:29 ; Status DC Albuterol/ Ipratropium (Duoneb Neb) 1 ampule Q6HR NEB NEB Last administered on 06/19/16 08:55; Start 06/18/16 at 22:00; Stop 06/19/16 at 09:26; Status DC Albuterol/ Ipratropium (Duoneb Neb) 1 ampule Q2HR NEB PRN NEB WHEEZING; Start 06/18/16 at 17:00; Stop 06/19/16 at 09:26; Status DC Racepinephrine (Racepinephrine 2.25% Neb) 0.5 ml UNSCH X1 PRN NEB STRIDOR; Start 06/18/16 at 17:00; Stop 06/19/16 at 09:26; Status DC Albuterol/ Ipratropium (Duoneb Neb) 1 ampule Q6HR WHILE AWAKE NEB NEB Last administered on 06/21/16 07:19; Start 06/19/16 at 14:00; Stop 06/21/16 at 13:59 ; Status DC Docusate Sodium (Colace) 100 mg BID PO Last administered on 06/20/16 09:55; Start 06/19/16 at 21:00 Multivitamins/ Minerals Therapeutic (Theragran M Tab) 1 tab DAILY PO Last administered on 06/23/16 09:07; Start 06/20/16 at 09:00 Magnesium Hydroxide (Milk Of Magnkiana Liq) 30 ml DAILY PO ; Start 06/19/16 at 10 :00; Stop 06/20/16 at 18:05; Status DC Bisacodyl (Dulcolax Supp) 10 mg UNSCH PRN RECTAL SEE LABEL COMMENTS; Start at 09:15; Stop 06/19/16 at 09:48; Status DC Polyethylene Glycol (Miralax) 17 gm DAILY PO ; Start 06/20/16 at 09:00 Sennosides (Senokot) 8.6 mg HS PO ; Start 06/19/16 at 21:00 Sodium Biphosphate/ Sodium Phosphate (Fleets Enema (Adult)) 133 ml UNSCH PRN RECTAL SEE LABEL COMMENTS; Start 06/19/16 at 09:15 Insulin Aspart (NovoLOG SUPPLEMENTAL SCALE) 1 02,06,10,14,18,22 SQ Last administered on 06/20/16 05:48; Start 06/19/16 at 10:00; Stop 06/20/16 at 06:01 ; Status DC Dextrose (D50w (Vial) Inj) 25 ml UNSCH PRN IV HYPOGLYCEMIA-SEE COMMENTS; Start 06/19/16 at 09:15 Glucagon (Glucagon Inj) 1 mg UNSCH PRN OTHER HYPOGLYCEMIA-SEE COMMENTS; Start 06/19/16 at 09:15 Morphine Sulfate (Morphine Inj) 2 mg Q6H PRN IV BREAKTHROUGH PAIN Last administered on 06/20/16 15:42; Start 06/19/16 at 09:30; Stop 06/20/16 at 18:03 ; Status DC Morphine Sulfate (Morphine Inj) 2 mg Q6H PRN IV BREAKTHROUGH PAIN Last administered on 06/21/16 06:37; Start 06/19/16 at 09:30; Stop 06/21/16 at 07:49 ; Status DC Carvedilol (Coreg) 3.125 mg Q12HR PO Last administered on 06/23/16 21:17; Start 06/20/16 at 09:00 Insulin Aspart (NovoLOG SUPPLEMENTAL SCALE) 1 ACHS SQ Last administered on 06/24 06:23; Start 06/20/16 at 11:00 Atorvastatin Calcium (Lipitor) 40 mg HS PO Last administered on 06/23/16 21:17 ; Start 06/19/16 at 21:00 Protamine Sulfate 500 mg 500 mg STK-MED ONCE IV ; Start 06/18/16 at 13:46; Stop 06/19/16 at 13:47; Status DC Sodium Chloride 300 ml @ As Directed STK-MED ONCE IV ; Start 06/18/16 at 13:46 ; Stop 06/19/16 at 13:47; Status DC Sodium Chloride 250 ml @ As Directed STK-MED ONCE IV ; Start 06/18/16 at 13:46 ; Stop 06/19/16 at 13:47; Status DC Parenteral Electrolytes 2,000 ml @ As Directed STK-MED ONCE IV ; Start at 13:46; Stop 06/19/16 at 13:47; Status DC Clevidipine (Cleviprex Inj) 50 ml @ As Directed STK-MED ONCE .ROUTE ; Start at 14:21; Stop 06/19/16 at 14:22; Status DC Pantoprazole Sodium (Protonix) 40 mg DAILY PO Last administered on 06/23/16 09 :07; Start 06/21/16 at 09:00 Hydromorphone HCl 1 mg 1 mg Q4H PRN IV PUSH BREAKTHROUGH PAIN Last administered on 06/22/16 07:42; Start 06/21/16 at 08:00; Stop 06/22/16 at 11:43 ; Status DC Sodium Chloride (NS 250 ml Inj) 250 ml @ 15 mls/hr ONCE ONCE IV Last administered on 06/21/16 17:27; Start 06/21/16 at 12:00; Stop 06/22/16 at 04:39 ; Status DC Furosemide (Lasix Inj) 40 mg ONCE ONCE IV Last administered on 06/21/16 17:26 ; Start 06/21/16 at 12:00; Stop 06/21/16 at 12:01; Status DC Furosemide (Lasix Inj) 40 mg BID@09,18 IV PUSH ; Start 06/22/16 at 18:00; Stop 06/22/16 at 18:00; Status DC Furosemide (Lasix Inj) 40 mg BID@09,18 IV PUSH Last administered on 06/23/16 17:37; Start 06/22/16 at 11:45 Pregabalin (Lyrica) 75 mg Q12HR PO Last administered on 06/23/16 21:18; Start 06/22/16 at 21:00 Oxycodone/ Acetaminophen (Percocet 5-325 Mg) 1 tab Q4H PRN PO PAIN 3-6; Start 06/22/16 at 13:15 Oxycodone/ Acetaminophen (Percocet 5-325 Mg) 2 tab Q4H PRN PO PAIN 7-10 Last administered on 06/24/16 06:09; Start 06/22/16 at 13:15 Sodium Polystyrene Sulfonate (Kayexalate Liq) 15 gm ONCE ONCE PO Last administered on 06/23/16 11:31; Start 06/23/16 at 10:15; Stop 06/23/16 at 10:20 ; Status DC Date of Removal: Jun 19, 2016 A/P Assessment and Plan A/P Chronic systolic heart failure EF 25-30% with mild LVH and diffuse hypokinesis Peripheral vascular disease - history of right femoropopliteal with in situ saphenous vein grafting with thrombectomy of popliteal artery/anterior posterior tibial arteries [address] Mayes Coronary artery disease recent PCI/drug-eluting stent to RCA/PDA 04/[address] Kan secondary to inferior STEMI Dual-chamber defibrillator placed 05/[address] Yousif. DDD/70 Hypertension Dyslipidemia Elevated troponin Stent thrombosis RCA- Severe CAD three-vessel LAD, circumflex, stented RCA- S/P CABG 06/18. Post op anemia Cardiology -Dr. Kan ff S/P left heart catheterization 06/09/16-left main 4050 percent occlusion, left circumflex 70% occlusion,thrombosed RCA Continue amiodarone for history of V. tach continue aspirin Kilo 30 mg by mouth daily for dyslipidemia. on Coreg and Norvasc CT surgery following. Acute hypoxemic respiratory failure-resolved Wean O2 as tolerated Bronchodilator therapy every 6 hours and as needed incentive spirometry- will monitor off antibiotics- ID follow-up appreciated. Gastroesophageal reflux disease/ GIB s/p EGD with gastroparesis ADA diet. Protonix for GI prophylaxis. Colace/as needed Senokot for bowel regimen Diabetes mellitus type 2 On lispro 15 units daily at home. Sliding-scale insulin with Accu-Cheks Peripheral neuropathy secondary to diabetes Anxiety started back on Lyrica and percocet Acetaminophen for fever Acute kidney injury with underlying Chronic kidney disease stage III. hyperkalemia-resolved continue diuretics. will monitor renal function renal US with no hydronephrosis nephrology consult appreciated. Possible community-acquired pneumonia History of MRSA treated with Zyvox off antibiotics- ID following. Blood cultures 2, sputum and UA NGTD Influenza negative Prophylaxis - GI - Protonix - chemical prophylaxis when ok with CT surgery. Tru Francis MD Jun 24, 2016 08:53
[2016-06-24] MEDS: PREGABALIN 75 MG CAP PO SCH ×2 (08:56→22:38)
[2016-06-24] MEDS: amLODIPine BESYLATE 5 MG TAB PO SCH (08:57)
[2016-06-24] MEDS: AMIODARONE 200 MG TAB PO SCH ×2 (08:57→19:54)
[2016-06-24] MEDS: DOCUSATE SODIUM 100 MG CAP PO SCH ×2 (08:57→22:38)
[2016-06-24] MEDS: PANTOPRAZOLE SOD 40 MG DELAYED RELEASE TAB PO SCH (08:58)
[2016-06-24] MEDS: COREG PO SCH ×2 (08:58→22:37)
[2016-06-24] MEDS: MULTIVITAMINS/MINERALS THERAPEUTIC TAB PO SCH (08:58)
[2016-06-24] MEDS: ASPIRIN 81 MG CHEW TAB PO SCH (08:58)
[2016-06-24] MEDS: NICOTINE 14 MG/24 HR PATCH TD SCH (08:59)
[2016-06-24] MEDS: POLYETHYLENE GLYCOL 17 GM PKG PO SCH (08:59)
[2016-06-24] MEDS: ARTIFICIAL TEARS OPTH SOLN 15 ML BTL EACH EYE SCH ×3 (09:00→18:00)
[2016-06-24] MEDS: FUROSEMIDE 40 MG/4 ML VIAL IV PUSH SCH ×2 (09:00→17:48)
[2016-06-24] MEDS: SODIUM CHLORIDE 0.9% FLUSH 5 ML FLUSH IV FLUSH SCH ×2 (09:00→22:38)
--- NOTE | 2016-06-24 13:56 | PD.CAR.PN ---
CVT Progress Note Subjective/Hospital Course: 65-year-old male. Date of admission 06/07/2016. Past medical history includes recent heart catheterization 04/30/[address] Kan secondary to an inferior STEMI with PCI/MERE placed placed to the RCA and PDA. Left main was 30%. LAD was 40% proximal/80% diagonal. Left circumflex was 30%. EF was 20/5/30 percent. Im [place] devices placed as well. Patient had prolonged intubation During this hospitalization developed V. tach as well and a dual-chamber defibrillator was placed by Dr. Yousif /DDD 70 on 05/27. presented this admission , admitted this admission with NSTEMI, resp failure with hypoxia , underwent cardiac cath by Dr Kan, MAGALIE to stent thrombosis of RCA 06/09 pt was on Brilinta at home PMH: CAD, with 2 prior stents by the hypertension, diabetes,'s chronic systolic heart failure EF 20-25% , , peripheral vascular disease with a right femoropopliteal in situ saphenous vein revision [address] Mayes with thrombolytic colectomy to the popliteal artery and anterior and posterior tibial arteries, 06/13 NO PAIN DURING THE NIGHT OOB with assistance on aggrastat and heparin 06/16 pt developed GI Bleed with Heme + stools HGB 7.0/ for 2 units PRBC GI consult, for EGD today on protonix gtt heparin and Aggrastat dc rescheduled for surgery on 06/17 EGD completed , gastroparesis CT abd / pelvis pending HGB stable , spoke with GI Dr Lantigua will need colonoscopy as outpt hold on restarting heparin and Aggrastat for now although GI was ok with restarting anticoagulation keep scheduled for surgery in am 06/18 1. Urgent Off-pump Coronary Artery Bypass Grafting x 3 with left internal mammary artery (WANG) to left anterior descending (LAD), reverse saphenous vein graft to OM1, reverse saphenous vein graft to the RPDA 2. Left Leg Endoscopic Vein [place] 2200cc crystalloid, 2 PRBC 750cc cell saver , EBL 1500cc had large bloody BM 06/19 extubated after surgery, on nasal cannula wants to sleep, not get OOB discussed importance if pulm toileting and getting OOB no pressors, HGB 7.[address] Langley / recheck HGB this afternoon remains on protonix gtt will transfer to stepdown 06/20 HGB 7.5/ transfuse one unit PRBC continue PPI worsening renal indices, consult Nephrology check renal US urinary retention/ per bladder scan/ refuses urinary cath " does not have the urge to void at this time " CT 130cc/ 12/ additional 120 since this am 06/21/16 No complaints. Remains anemic with increased creatinine 06/22/16 Hgb improved post transfusion - urine output also better Chest tube drainage is copious 06/23/16 chest tubes dc without difficulty CXR pending in am + edema lower ext/ neg for DVT/ on diuretics, elevate legs no MARIBETH due to pressure ulcers and severe PVD + BM eval for dc in 1-2 days / pt wants to go home 06/24/16 pt apparently take care of his mother at home recommend rehab placement for short term still has significant edema lower ext, neg DVT continue ASA, elevate legs eval for dc soon , when cleared by renal renal indices improving, still up 8 kg from surgery CXR shows small left effusion / will need to continue on diuresis at discharge . Objective: Vital Signs Date Time Temp Pulse Resp B/P Pulse Ox O2 Delivery O2 Flow Rate FiO2 06/24/16 12:24 70 06/24/16 12:23 70 06/24/16 11:49 70 06/24/16 11:17 70 16 107/60 06/24/16 11:17 70 06/24/16 10:20 70 06/24/16 10:08 70 06/24/16 09:44 94 21 06/24/16 09:21 70 06/24/16 08:54 70 06/24/16 08:25 70 16 112/60 94 06/24/16 08:25 70 06/24/16 07:56 70 06/24/16 06:00 70 06/24/16 05:00 70 06/24/16 04:00 99.0 70 16 134/72 91 06/24/16 04:00 70 06/24/16 03:00 70 06/24/16 02:33 70 06/24/16 01:08 70 06/24/16 00:00 70 06/23/16 23:20 98.8 70 16 123/71 93 06/23/16 23:00 70 3/27/17 22:00 70 06/23/16 21:00 70 06/23/16 20:00 70 06/23/16 19:40 98.1 70 16 110/59 95 06/23/16 19:00 70 06/23/16 18:00 70 06/23/16 17:14 22 06/23/16 17:00 70 06/23/16 16:00 70 06/23/16 15:09 98.2 70 16 124/68 93 06/23/16 15:00 70 06/23/16 14:00 70 Labs: Laboratory Tests Test 06/24/16 05:17 White Blood Count 12.6 TH/MM3 (4.0-11.0) Red Blood Count 3.19 MIL/MM3 (4.50-5.90) Hemoglobin 9.4 GM/DL (13.0-17.0) Hematocrit 28.0 % (39.0-51.0) Mean Corpuscular Volume 87.9 FL (80.0-100.0) Mean Corpuscular Hemoglobin 29.4 PG (27.0-34.0) Mean Corpuscular Hemoglobin 33.5 % Concent (32.0-36.0) Red Cell Distribution Width 16.3 % (11.6-17.2) Platelet Count 130 TH/MM3 (150-450) Mean Platelet Volume 8.6 FL (7.0-11.0) Neutrophils (%) (Auto) 65.4 % (16.0-70.0) Lymphocytes (%) (Auto) 17.6 % (9.0-44.0) Monocytes (%) (Auto) 14.0 % (0.0-8.0) Eosinophils (%) (Auto) 2.5 % (0.0-4.0) Basophils (%) (Auto) 0.5 % (0.0-2.0) Neutrophils # (Auto) 8.3 TH/MM3 (1.8-7.7) Lymphocytes # (Auto) 2.2 TH/MM3 (1.0-4.8) Monocytes # (Auto) 1.8 TH/MM3 (0-0.9) Eosinophils # (Auto) 0.3 TH/MM3 (0-0.4) Basophils # (Auto) 0.1 TH/MM3 (0-0.2) CBC Comment DIFF FINAL Differential Comment Sodium Level 139 MEQ/L (136-145) Potassium Level 4.3 MEQ/L (3.5-5.1) Chloride Level 106 MEQ/L (98-107) Carbon Dioxide Level 24.8 MEQ/L (21.0-32.0) Anion Gap 8 MEQ/L (5-15) Blood Urea Nitrogen 57 MG/DL (7-18) Creatinine 1.94 MG/DL (0.60-1.30) Estimat Glomerular Filtration 35 ML/MIN (>89) Rate Random Glucose 151 MG/DL (74-106) Calcium Level 8.0 MG/DL (8.5-10.1) Result Diagram: 06/24/1651606/24/16516 Telemetry: AV paced (1) NSTEMI (non-ST elevated myocardial infarction) (2) Coronary artery disease Plan: statin BB , ASA, statin OOB ambulate pain control pulm toileting continue diuresis lower ext edema / neg for DVT (3) S/P CABG x 3 Plan: on ASA, BB in am , statin OOB, ambulate pulm toileting (4) Acute respiratory failure with hypoxia Plan: resolved (5) SIRS (systemic inflammatory response syndrome) Plan: improved, off antibiotics / appreciate ID for input (6) History of ventricular tachycardia (7) Chronic kidney disease, stage III (moderate) Plan: creatinine 1.61> 2.60 >2.42> 1.94 nephrology consult US renal : medical renal disease (8) Chronic systolic heart failure Plan: BV ICD (9) Dyslipidemia Plan: statin (10) Hypertension Plan: stable (11) Peripheral vascular disease Plan: no maribeth hose (12) Peripheral neuropathy (13) Pressure ulcer of left heel, unstageable Plan: podiatry following (14) Pressure ulcer of right heel, unstageable (15) Blood loss anemia Plan: s/p PRBC 06/18 monitor (16) Diabetes mellitus Plan: diabetic diet / insulin sliding scale Problem Qualifiers (1) Coronary artery disease: Qualified Code: I25.10 - Coronary artery disease involving teller coronary artery of teller heart, angina presence unspecified (2) Peripheral neuropathy: Qualified Code: G62.9 - Peripheral polyneuropathy (3) Diabetes mellitus: Qualified Code: E11.8 - Type 2 diabetes mellitus with complication, with long- term current use of insulin Nicole Lazar Jun 24, 2016 13:56
--- NOTE | 2016-06-24 16:39 | HHI.NPPN ---
Subjective History of Present Illness 65-year-old male with past medical history of ischemic heart disease, hypertension, diabetes mellitus, chronic kidney disease, peripheral vascular disease, anemia who was admitted with respiratory failure on June 07. I was called to see the patient because of elevated BUN and creatinine. The patient has creatinine of 1.5 on presentation. The patient was diagnosed with elevated troponins on admission and Non-ST elevation Myocardial infarction. He underwent cardiac catheterization on June 09 and underwent coronary artery bypass grafting x3 on June 18. Additional Remarks Patient is alert, no SOB, sitting on chair, feeling better. Review of Systems General Constitutional: Fatigue Cardiovascular Cardiac: Edema, [place] Objective Data Data 06/23/16 06/24/16 19:00 07:00 Intake Total 480 ml 480 ml Output Total 1450 ml 750 ml Balance -970 ml -270 ml Intake Oral 480 ml 480 ml Output Urine Total 1450 ml 750 ml # Voids 1 # Bowel Movements 1 1 Vital Signs Date Time Temp Pulse Resp B/P Pulse Ox O2 Delivery O2 Flow Rate FiO2 06/24/16 16:13 70 06/24/16 15:40 98.1 70 18 110/69 95 Arterial Line 06/24/16 15:28 70 06/24/16 14:07 70 06/24/16 12:24 70 06/24/16 12:23 70 06/24/16 11:49 70 06/24/16 11:17 70 16 107/60 06/24/16 11:17 70 06/24/16 10:20 70 06/24/16 10:08 70 06/24/16 09:44 94 21 06/24/16 09:21 70 06/24/16 08:54 70 06/24/16 08:25 70 16 112/60 94 06/24/16 08:25 70 06/24/16 07:56 70 06/24/16 06:00 70 06/24/16 05:00 70 06/24/16 04:00 99.0 70 16 134/72 91 06/24/16 04:00 70 06/24/16 03:00 70 06/24/16 02:33 70 06/24/16 01:08 70 06/24/16 00:00 70 06/23/16 23:20 98.8 70 16 123/71 93 06/23/16 23:00 70 06/23/16 22:00 70 06/23/16 21:00 70 06/23/16 20:00 70 06/23/16 19:40 98.1 70 16 110/59 95 06/23/16 19:00 70 06/23/16 18:00 70 06/23/16 17:14 22 06/23/16 17:00 70 -: 06/24/16 0517 06/24/16 0517 Physical Exam General Appearance: Well Developed, No Acute Distress, Comfortable Neck Neck Exam: Neck Supple Pulmonary Resp Exam: Breath Sounds Equal, No Distress, Rhonchi, Decreased Bases, Diminished Breath Sounds Cardiology CV Exam: Regular Gastrointestinal/Abdomen GI Exam: Soft, Non-Tender, Bowel Sounds Present Extremeties Extremities Exam: Moderate Edema, Pitting Edema Neurologic Neuro Exam: Alert, Awake Psychiatric Psych Exam: Appropriate Responses Assessment/Plan Problem List: (1) Acute renal failure (2) Chronic systolic heart failure (3) Chronic kidney disease, stage III (moderate) (4) Diabetes mellitus Plan Patient has chronic kidney disease. the baseline Creatinine is 1.3-1.5. Has minimal Proteinuria, most likely has Hypertensive or renovascular disease. Now develop KAMARI. Non Oliguric. Renal U/S noted. Continue Lasix, try to keep in negative fluid balance. Patient has CHF, with low EF. Creatinine continue to improve. Avoid Nephrotoxins and follow BMP. Problem Qualifiers (1) Acute renal failure: Qualified Code: N17.0 - Acute renal failure with tubular necrosis (2) Diabetes mellitus: Qualified Code: E11.8 - Type 2 diabetes mellitus with complication, with long- term current use of insulin Maco Sheehan MD Jun 24, 2016 16:39
[2016-06-24] MEDS: SODIUM CHLORIDE 0.9% FLUSH 5 ML FLUSH IV FLUSH PRN (17:49)
[2016-06-24] MEDS: SENNOSIDES 8.6 MG TAB PO SCH (22:38)
[2016-06-24] MEDS: ATORVASTATIN 40 MG TAB PO SCH (22:38)
[2016-06-25] VITALS (15 sets, daily range): BP systolic 102–140; BP diastolic 58–76; PULSE 69–70; RESP 16–20; TEMP 97.6–98.5; O2SAT 93–94
[2016-06-25] MEDS: oxyCODONE/ACETAMINOPHEN 5 MG/325 MG TAB PO PRN ×3 (04:53→14:40)
[2016-06-25] MEDS: INSULIN ASPART SUPPLEMENTAL SCALE SQ SCH ×2 (06:16→11:43)
[2016-06-25 06:29] LABS: AUTOMATED NEUTROPHIL # 8.7 TH/MM3 (1.8-7.7); BASOPHIL # 0.1 TH/MM3 (0-0.2); BASOPHIL % 0.5 % (0.0-2.0); EOSINOPHIL # 0.3 TH/MM3 (0-0.4); HEMATOCRIT 28.8 % (39.0-51.0); LYMPH % 16.6 % (9.0-44.0); LYMPHOCYTE # 2.1 TH/MM3 (1.0-4.8); MEAN CELL VOLUME 87.6 FL (80.0-100.0); MEAN CORPUSCULAR HEMOGLOBIN 30.8 PG (27.0-34.0); MEAN CORPUSCULAR HGB CONC 35.2 % (32.0-36.0); NEUT % 67.9 % (16.0-70.0); PLATELET COUNT 175 TH/MM3 (150-450); RED BLOOD COUNT 3.28 MIL/MM3 (4.50-5.90); RED CELL DISTRIBUTION WIDTH 15.9 % (11.6-17.2); WHITE BLOOD COUNT 12.8 TH/MM3 (4.0-11.0)
[2016-06-25 06:33] LABS: HEMO FLAGS AUTO DIFF
[2016-06-25 06:46] LABS: BICARBONATE 25.3 MEQ/L (21.0-32.0); POTASSIUM 4.1 MEQ/L (3.5-5.1)
[2016-06-25] MEDS: COREG PO SCH (08:22)
[2016-06-25] MEDS: ASPIRIN 81 MG CHEW TAB PO SCH (08:23)
[2016-06-25] MEDS: MULTIVITAMINS/MINERALS THERAPEUTIC TAB PO SCH (08:23)
[2016-06-25] MEDS: PANTOPRAZOLE SOD 40 MG DELAYED RELEASE TAB PO SCH (08:23)
[2016-06-25] MEDS: PREGABALIN 75 MG CAP PO SCH (08:23)
[2016-06-25] MEDS: AMIODARONE 200 MG TAB PO SCH (08:23)
[2016-06-25] MEDS: FUROSEMIDE 40 MG/4 ML VIAL IV PUSH SCH (08:24)
[2016-06-25] MEDS: SODIUM CHLORIDE 0.9% FLUSH 5 ML FLUSH IV FLUSH SCH (08:24)
[2016-06-25] MEDS: NICOTINE 14 MG/24 HR PATCH TD SCH (08:25)
[2016-06-25] MEDS: amLODIPine BESYLATE 5 MG TAB PO SCH (08:30)
--- NOTE | 2016-06-25 08:36 | HHI.PR ---
Subjective Remarks resting comfortably with no distress. having his breakfast. other than some pain to the legs and site of previous chest tube , no other new complaints. Objective Vitals Vital Signs Date Time Temp Pulse Resp B/P Pulse Ox O2 Delivery O2 Flow Rate FiO2 06/25/16 06:00 70 06/25/16 04:00 97.8 70 20 140/76 94 06/25/16 02:01 70 06/25/16 01:00 70 06/25/16 01:00 97.8 70 20 126/68 94 06/25/16 00:00 70 06/24/16 20:00 70 06/24/16 20:00 97.8 73 20 109/60 94 06/24/16 18:03 70 06/24/16 17:30 95 21 06/24/16 16:13 70 06/24/16 15:40 98.1 70 18 110/69 95 Arterial Line 06/24/16 15:28 70 06/24/16 14:07 70 06/24/16 12:24 70 06/24/16 12:23 70 06/24/16 11:49 70 06/24/16 11:17 70 16 107/60 06/24/16 11:17 70 06/24/16 10:20 70 06/24/16 10:08 70 06/24/16 09:44 94 21 06/24/16 09:21 70 06/24/16 08:54 70 I/O 06/24/16 06/24/16 06/24/16 06/25/16 06/25/16 06/25/16 07:00 15:00 23:00 07:00 15:00 23:00 Intake Total 480 ml 1170 ml 420 ml Output Total 750 ml 1500 ml 1225 ml Balance -270 ml -330 ml -805 ml Intake Oral 480 ml 1170 ml 420 ml Output Urine Total 750 ml 1500 ml 1225 ml # Voids 1 1 # Bowel Movements 1 Result Diagram: 06/25/16 0508 06/25/16 0506 Imaging Last Impressions Chest X-Ray 06/24/16 0600 Signed Impressions: Service Date/Time: Friday, June 24, 2016 03:51 - CONCLUSION: 1. Cardiomegaly with basilar airspace disease and effusion, left greater than right. Jean Carlos Kan MD Lower Extremity Ultrasound 3/27/17 0000 Signed Impressions: Service Date/Time: Thursday, June 23, 2016 11:07 - CONCLUSION: Negative for deep venous thrombosis. History of greater saphenous vein removal for bypass on the right.. Frank Walters MD FACR Renal Ultrasound 06/20/16 Signed Impressions: Service Date/Time: Monday, June 20, 2016 19:26 - CONCLUSION: 2 cysts involving the left kidney. No hydronephrosis. Mild increase in cortical echogenicity bilaterally Florencio Gomez MD Abdomen/Pelvis CT 06/17/16 0000 Signed Impressions: Service Date/Time: Friday, June 17, 2016 11:44 - CONCLUSION: 1. Uncomplicated colonic diverticulosis. 2. 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 3. Ventral abdominal wall hernia containing only fat. 4. Enlarged prostate. 5. Small bilateral pleural effusions (right larger than left). 6. Bibasilar alveolar consolidations consistent with compressive atelectasis and/or infiltrates. 7. Cardiomegaly. 8. 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 9. Left renal cysts. 10. Degenerative changes throughout the thoracolumbar spine. South Munoz MD Carotid Artery Ultrasound 06/10/16 0000 Signed Impressions: Service Date/Time: Friday, June 10, 2016 16:11 - CONCLUSION: Mild to moderate plaquing bilaterally with less than 50%% diameter stenosis by velocity criteria. Gregorio Walsh MD CT Angiography 06/07/16 Signed Impressions: Service Date/Time: Tuesday, June 07, 2016 15:18 - CONCLUSION: 1. No pulmonary embolus. 2. Very small, bilateral pleural effusions and patchy bilateral airspace opacities. 3. Mildly enlarged mediastinal lymph nodes, nonspecific. 4. Several nodules up to 2 cm in size of the left adrenal gland, incompletely characterized but statistically most likely adenomas. There is a cyst of the left kidney. 5. Coronary artery calcification. Florencio Hamilton MD Objective Remarks GENERAL: This is a well-nourished, well-developed patient, in no apparent distress. CARDIOVASCULAR: Regular rate and regular rhythm without murmurs, gallops, or rubs. RESPIRATORY: Clear to auscultation. Breath sounds equal bilaterally. No wheezes , rales, or rhonchi. chest tube in place. GASTROINTESTINAL: Abdomen soft, non-tender, nondistended. Normal, active bowel sounds MUSCULOSKELETAL: Extremities without clubbing, cyanosis, or edema. NEURO: Alert & Oriented x4 to person, place, time, situation. Moves all ext x4 Procedures 06/16- EGD- retained food 06/18- CABG Medications and IVs Current Medications IV Flush 2 ml 2 ml UNSCH PRN IVF FLUSH AFTER USING IV ACCESS Last administered on 06/07/16 03:39; Start 06/07/16 at 02:00; Stop 06/07/16 at 04:26; Status DC Nitroglycerin/ Dextrose (Nitroglycerin-Dextrose Inj) 250 ml @ 0 mls/hr TITRATE ONCE IV Last administered on 06/07/16 02:07; Start 06/07/16 at 02:00; Stop 02/13 at 02:01; Status DC Lorazepam 0.5 mg 0.5 mg ONCE ONCE IV PUSH Last administered on 06/07/16 02:07 ; Start 06/07/16 at 02:00; Stop 06/07/16 at 02:01; Status DC Cefepime HCl 2000 mg/Sodium Chloride 100 ml @ 200 mls/hr ONCE ONCE IV Last administered on 06/07/16 05:27; Start 06/07/16 at 03:00; Stop 06/07/16 at 03:29 ; Status DC Azithromycin/ Sodium Chloride (Zithromax Inj/ NS 250 ml Inj) 250 ml @ 250 mls/ hr ONCE ONCE IV Last administered on 06/07/16 03:38; Start 06/07/16 at 03:00 ; Stop 06/07/16 at 03:59; Status DC Bumetanide (Bumex Inj) 1 mg ONCE ONCE IV PUSH Last administered on 06/07/16 03:39; Start 06/07/16 at 03:00; Stop 06/07/16 at 03:01; Status DC Lorazepam (Ativan Inj) 0.5 mg ONCE ONCE IV PUSH Last administered on 03:39; Start 06/07/16 at 03:00; Stop 06/07/16 at 03:01; Status DC Aspirin (Aspirin Chew) 162 mg ONCE ONCE CHEW Last administered on 06/07/16 03 :45; Start 06/07/16 at 03:45; Stop 06/07/16 at 03:46; Status DC IV Flush (NS Flush) 2 ml UNSCH PRN IV FLUSH FLUSH AFTER USING IV ACCESS; Start 06/07/16 at 04:30; Stop 06/07/16 at 06:54; Status DC IV Flush (NS Flush) 2 ml BID IV FLUSH ; Start 06/07/16 at 09:00; Stop 06/07/16 at 09:00; Status DC Acetaminophen (Tylenol) 650 mg Q6H PRN PO PAIN 1-10 AND/OR FEVER >101F; Start 06/07/16 at 04:30; Stop 06/07/16 at 06:54; Status DC Pantoprazole Sodium (Protonix Inj) 40 mg DAILY IV ; Start 06/07/16 at 09:00; Stop 06/07/16 at 09:00; Status DC Ondansetron HCl (Zofran Inj) 4 mg Q6H PRN IV NAUSEA OR VOMITING; Start at 04:30; Stop 06/18/16 at 14:47; Status DC Albuterol Sulfate (Albuterol Neb) 2.5 mg Q2HR NEB PRN INH SOB/WHEEZING; Start 06/07/16 at 04:30; Stop 06/18/16 at 16:15; Status DC Enoxaparin Sodium (Lovenox Inj) 40 mg Q24H SQ Last administered on 06/07/16 11 :16; Start 06/07/16 at 09:00; Stop 06/08/16 at 09:08; Status DC Miscellaneous Information 1 Q361D XX ; Start 06/07/16 at 04:30; Stop 06/19/16 at 09:14; Status DC Chlorhexidine Gluconate (Chlorhexidine 2% Cloth) Taper DAILY@04 TOP Last administered on 06/18/16 04:00; Start 06/08/16 at 04:00; Stop 06/19/16 at 09:14 ; Status DC Chlorhexidine Gluconate (Chlorhexidine 2% Cloth) 3 pack UNSCH PRN TOP HYGIENIC CARE; Start 06/07/16 at 04:30; Stop 06/19/16 at 09:14; Status DC Bumetanide 1 mg 1 mg Q12H IV PUSH Last administered on 06/09/16 02:44; Start 06/07/16 at 15:00; Stop 06/09/16 at 09:05; Status DC Cefepime HCl 2000 mg/Sodium Chloride 100 ml @ 200 mls/hr Q12H IV Last administered on 06/19/16 02:49; Start 06/07/16 at 15:00; Stop 06/19/16 at 13:47 ; Status DC Azithromycin/ Sodium Chloride (Zithromax Inj/ NS 250 ml Inj) 250 ml @ 250 mls/ hr Q24H IV Last administered on 06/19/16 02:50; Start 06/08/16 at 03:00; Stop 06/19/16 at 13:48; Status DC Dextrose (D50w (Vial) Inj) 25 ml UNSCH PRN IV PUSH HYPOGLYCEMIA-SEE COMMENTS; Start 06/07/16 at 04:30; Stop 06/18/16 at 15:09; Status DC Glucagon (Glucagon Inj) 1 mg UNSCH PRN OTHER HYPOGLYCEMIA-SEE COMMENTS; Start 06/07/16 at 04:30; Stop 06/18/16 at 15:09; Status DC Insulin Aspart (NovoLOG SUPPLEMENTAL SCALE) 1 Q4HR SQ Last administered on 06/17 21:01; Start 06/07/16 at 04:30; Stop 06/18/16 at 15:09; Status DC Aspirin (Aspirin Chew) 81 mg DAILY CHEW Last administered on 06/09/16 09:38; Start 06/07/16 at 09:00; Stop 06/09/16 at 15:32; Status DC Ticagrelor (Brilinta) 90 mg BID PO Last administered on 06/11/16 08:13; Start 06/07/16 at 09:00; Stop 06/19/16 at 09:14; Status DC Carvedilol (Coreg) 6.25 mg Q12HR PO Last administered on 06/18/16 08:18; Start 06/07/16 at 09:00; Stop 06/19/16 at 09:25; Status DC Amlodipine Besylate (Norvasc) 2.5 mg DAILY PO Last administered on 06/24/16 08 :57; Start 06/07/16 at 09:00 Amiodarone HCl (Cordarone) 200 mg DAILY PO Last administered on 06/18/16 08:17 ; Start 06/07/16 at 09:00; Stop 06/18/16 at 14:37; Status DC Atorvastatin Calcium (Lipitor) 20 mg DAILY PO Last administered on 06/19/16 08 :35; Start 06/07/16 at 09:00; Stop 06/19/16 at 13:51; Status DC Gabapentin (Neurontin) 300 mg TID PO Last administered on 06/22/16 12:44; Start 06/07/16 at 09:00; Stop 06/22/16 at 13:15; Status DC Insulin Detemir (Levemir Inj) 8 units Q12HR SQ Last administered on 06/17/16 20:50; Start 06/07/16 at 09:00; Stop 06/18/16 at 15:09; Status DC IV Flush (NS Flush) 2 ml UNSCH PRN IV FLUSH FLUSH AFTER USING IV ACCESS Last administered on 06/08/16 14:37; Start 06/07/16 at 06:45; Stop 06/09/16 at 15:31 ; Status DC IV Flush (NS Flush) 2 ml BID IV FLUSH Last administered on 06/08/16 20:40; Start 06/07/16 at 09:00; Stop 06/09/16 at 15:31; Status DC Acetaminophen (Tylenol) 650 mg Q6H PRN PO PAIN 1-10 AND/OR FEVER >101F; Start 06/07/16 at 06:45; Stop 06/18/16 at 14:36; Status DC Acetaminophen/ Hydrocodone Bitart ([place] 5-325 Mg) 1 tab Q4H PRN PO PAIN SCALE 1 TO 5 Last administered on 06/08/16 22:35; Start 06/07/16 at 06:45; Stop 06/09/16 at 09:28; Status DC Morphine Sulfate (Morphine Inj) 2 mg Q2H PRN IV PAIN SCALE 6 TO 10 Last administered on 06/11/16 17:05; Start 06/07/16 at 06:45; Stop 06/11/16 at 18:26 ; Status DC Pantoprazole Sodium (Protonix) 40 mg DAILY PO Last administered on 06/16/16 08 :40; Start 06/07/16 at 09:00; Stop 06/16/16 at 10:09; Status DC Artificial Tears (Tears Naturale Opth Soln) 1 drop TID EACH EYE Last administered on 06/24/16 18:00; Start 06/07/16 at 09:00 Ondansetron HCl (Zofran Inj) 4 mg Q6H PRN IV NAUSEA OR VOMITING; Start at 06:45; Stop 06/07/16 at 06:54; Status DC Docusate Sodium (Colace) 100 mg BID PO Last administered on 06/15/16 20:14; Start 06/07/16 at 09:00; Stop 06/19/16 at 09:14; Status DC Sennosides (Senokot) 17.2 mg Q12H PRN PO CONSTIPATION; Start 06/07/16 at 06:45 ; Stop 06/19/16 at 09:14; Status DC Albuterol/ Ipratropium (Duoneb Neb) 1 ampule Q6HR NEB INH Last administered on 06/11/16 07:43; Start 06/07/16 at 10:00; Stop 06/11/16 at 10:00; Status DC Miscellaneous Information 1 Q361D XX ; Start 06/07/16 at 06:45; Stop 06/07/16 at 06:54; Status DC Chlorhexidine Gluconate (Chlorhexidine 2% Cloth) 3 pack Taper DAILY@04 TOP ; Start 06/08/16 at 04:00; Stop 06/08/16 at 04:00; Status DC Chlorhexidine Gluconate (Chlorhexidine 2% Cloth) 3 pack UNSCH PRN TOP HYGIENIC CARE; Start 06/07/16 at 06:45; Stop 06/07/16 at 06:54; Status DC Linezolid (Zyvox) 600 mg Q12HR PO Last administered on 06/19/16 08:35; Start 06/07/16 at 21:00; Stop 06/19/16 at 13:48; Status DC Acetylcysteine 600 mg 600 mg BID PO Last administered on 06/08/16 20:40; Start 06/07/16 at 21:00; Stop 06/09/16 at 09:01; Status DC Sodium Bicarbonate/ Sterile Water (Sodium Bicarbonate 8.4% Inj/Sterile Water For Inj) 1,000 ml @ 100 mls/hr Q10H IV Last administered on 06/07/16 14:49; Start 06/07/16 at 15:00; Stop 06/08/16 at 00:59; Status DC Iohexol (Omnipaque 350 Inj) 50 ml STK-MED ONCE IV ; Start 06/07/16 at 15:22; Stop 06/07/16 at 15:29; Status DC Heparin Sodium (Porcine) (Heparin Inj) 5,000 units UNSCH PRN IV APTT LESS THAN 25; Start 06/08/16 at 15:15; Stop 06/16/16 at 09:25; Status DC Heparin Sodium (Porcine) 2500 units 2,500 units UNSCH PRN IV APTT 25 TO 39; Start 06/08/16 at 15:15; Stop 06/16/16 at 09:25; Status DC Heparin Sodium/ Dextrose 250 ml @ 0 mls/hr TITRATE IV Last administered on 06/15 20:17; Start 06/08/16 at 09:15; Stop 06/16/16 at 09:25; Status DC Sodium Chloride (NS 1000 ml Inj) 1,000 ml @ 50 mls/hr Q20H IV Last administered on 06/09/16 09:30; Start 06/09/16 at 10:00; Stop 06/10/16 at 07:45 ; Status DC Acetaminophen/ Hydrocodone Bitart 2 tab 2 tab Q4H PRN PO PAIN SCALE 6 TO 10 Last administered on 06/17/16 15:25; Start 06/09/16 at 10:45; Stop 06/18/16 at 14:35; Status DC Heparin Sodium/ Sodium Chloride (Heparin-NS/Pf Inj) 500 ml @ As Directed STK- MED ONCE .ROUTE Last administered on 06/09/16 13:07; Start 06/09/16 at 13:07; Stop 06/09/16 at 13:08; Status DC Midazolam HCl (Versed Inj) 2 mg STK-MED ONCE .ROUTE Last administered on 13:08; Start 06/09/16 at 13:08; Stop 06/09/16 at 13:09; Status DC Fentanyl Citrate (fentaNYL INJ) 100 mcg STK-MED ONCE .ROUTE Last administered on 06/09/16 13:08; Start 06/09/16 at 13:08; Stop 06/09/16 at 13:09; Status DC Verapamil HCl (Isoptin Inj) 5 mg STK-MED ONCE .ROUTE Last administered on 13:08; Start 06/09/16 at 13:08; Stop 06/09/16 at 13:09; Status DC Heparin Sodium (Porcine) 82018 units 10,000 units STK-MED ONCE .ROUTE Last administered on 06/09/16 13:08; Start 06/09/16 at 13:08; Stop 06/09/16 at 13:09 ; Status DC Nitroglycerin 5 ml @ As Directed STK-MED ONCE .ROUTE Last administered on 13:08; Start 06/09/16 at 13:08; Stop 06/09/16 at 13:09; Status DC Tirofiban/Sodium Chloride (Aggrastat Infusion Inj) 250 ml @ As Directed STK- MED ONCE IV Last administered on 06/09/16 14:58; Start 06/09/16 at 14:58; Stop 06/09/16 at 14:59; Status DC Aspirin (Aspirin Chew) 81 mg DAILY PO Last administered on 06/18/16 08:18; Start 06/10/16 at 09:00; Stop 06/18/16 at 15:07; Status DC IV Flush (NS Flush) 2 ml UNSCH PRN IVF FLUSH AFTER USING IV ACCESS Last administered on 06/18/16 08:18; Start 06/09/16 at 15:30; Stop 06/18/16 at 14:38 ; Status DC IV Flush (NS Flush) 2 ml BID IVF Last administered on 06/18/16 08:19; Start at 21:00; Stop 06/18/16 at 14:38; Status DC Miscellaneous Information 1 ONCE ONCE XX ; Start 06/09/16 at 15:30; Stop at 15:31; Status DC Iohexol (OMNIPAQUE 350 INJ (Credit Reference Clerk)) 100 ml STK-MED ONCE OTHER ; Start at 15:00; Stop 06/09/16 at 15:47; Status DC Fentanyl Citrate (fentaNYL INJ) 50 mcg ONCE ONCE IV ; Start 06/09/16 at 13:29; Stop 06/09/16 at 17:40; Status DC Midazolam HCl (Versed Inj) 2 mg ONCE ONCE IV ; Start 06/09/16 at 13:30; Stop at 17:40; Status DC Verapamil HCl (Isoptin Inj) 2.5 mg ONCE ONCE IV PUSH ; Start 06/09/16 at 15:42 ; Stop 06/09/16 at 15:43; Status Cancel Nitroglycerin (Nitroglycerin Inj) 200 mcg ONCE ONCE OTHER ; Start 06/09/16 at 18:00; Stop 06/09/16 at 18:01; Status DC Heparin Sodium (Porcine) (Heparin Inj) 2,500 units ONCE ONCE IART ; Start 06/09 at 15:42; Stop 06/09/16 at 17:49; Status DC Verapamil HCl (Isoptin Inj) 2.5 mg ONCE ONCE OTHER ; Start 06/09/16 at 18:00; Stop 06/09/16 at 18:01; Status DC Heparin Sodium (Porcine) (Heparin Inj) 5,000 units ONCE ONCE IV ; Start at 13:40; Stop 06/09/16 at 17:53; Status DC Heparin Sodium (Porcine) 2000 units 2,000 units ONCE ONCE IV ; Start 06/09/16 at 14:40; Stop 06/09/16 at 17:53; Status DC Tirofiban/Sodium Chloride 100 ml @ 1,200 mls/hr BOLUS ONCE IV ; Start at 15:05; Stop 06/09/16 at 18:06; Status DC Tirofiban/Sodium Chloride (Aggrastat Infusion Inj) 250 ml @ 18 mls/hr [id number] IV Last administered on 06/10/16 03:26; Start 06/09/16 at 15:00; Stop at 09:00; Status DC Alprazolam (Xanax) 0.5 mg Q8H PRN PO ANXIETY Last administered on 06/14/16 16: 33; Start 06/10/16 at 08:00; Stop 06/15/16 at 08:43; Status DC Nicotine (Habitrol 14 Mg Patch.24 Hr) 1 patch DAILY TD Last administered on 08:59; Start 06/10/16 at 09:00 Miscellaneous Information 1 HS TD Last administered on 06/23/16 21:00; Start 06/10/16 at 21:00 Bumetanide (Bumex Inj) 1 mg BID@09,18 IV PUSH Last administered on 06/18/16 08 :17; Start 06/10/16 at 09:00; Stop 06/19/16 at 09:14; Status DC IV Flush (NS Flush) 2 ml BID IV FLUSH Last administered on 06/24/16 22:38; Start 06/10/16 at 21:00 IV Flush 2 ml 2 ml UNSCH PRN IV FLUSH FLUSH AFTER USING IV ACCESS Last administered on 06/24/16 17:49; Start 06/10/16 at 15:30 Papaverine HCl 60 mg/Nitroglycerin 100 mcg/Diltiazem HCl 100 mg/Sodium Chloride 100.0 ml @ 0 mls/hr 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 ; Start 06/10/16 at 15:30; Stop at 15:29; Status DC Cefazolin Sodium 500 mg/Sodium Chloride 505 ml @ 0 mls/hr 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 ; Start 06/10/16 at 15:30; Stop 06/17/16 at 15:29; Status DC Cefazolin Sodium/ Dextrose (Ancef 2 Gm Premix) 50 ml @ 150 mls/hr 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 IV Last administered on 06/18/16 11:16; Start 06/10/16 at 15:30; Stop 06/17/16 at 15:29; Status DC Metoprolol Tartrate (Lopressor) 12.5 mg 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 PO ; Start 06/11/16 at 05:00; Stop 06/17/16 at 04:59; Status DC Chlorhexidine Gluconate 1 applic 1 applic 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 TOPICAL ; Start 06/10/16 at 15:30; Stop 06/17/16 at 15:29; Status DC Insulin Human Regular 100 units/ Sodium Chloride 101 ml @ 0 mls/hr 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 IV ; Start 06/10/16 at 15:30; Stop 06/17/16 at 15:29; Status DC Tirofiban/Sodium Chloride 2500 mcg/ Syringe / Bag 50 ml @ 600 mls/hr BOLUS ONCE IV Last administered on 06/11/16 13:01; Start 06/11/16 at 11:45; Stop at 12:30; Status DC Tirofiban/Sodium Chloride 2500 mcg/ Syringe / Bag 50 ml @ 600 mls/hr BOLUS ONCE IV ; Start 06/11/16 at 11:45; Stop 06/11/16 at 11:53; Status DC Tirofiban/Sodium Chloride (Aggrastat Infusion Inj) 250 ml @ 18.018 mls/ hr [id number] IV Last administered on 06/16/16 04:02; Start 06/11/16 at 13:00; Stop 06/16/16 at 09:26; Status DC Morphine Sulfate (Morphine Inj) 1 mg Q4H PRN IV 7-10; Start 06/11/16 at 18:30; Status Cancel Morphine Sulfate (Morphine Inj) 2 mg Q2H PRN IV PAIN SCALE 6 TO 10 Last administered on 06/18/16 03:00; Start 06/11/16 at 18:30; Stop 06/19/16 at 09:14 ; Status DC Hydromorphone HCl 0.5 mg 0.5 mg Q4H PRN IV PUSH PAIN SCALE 7-10 Last administered on 06/18/16 05:42; Start 06/12/16 at 15:00; Stop 06/19/16 at 09:14 ; Status DC Potassium Chloride 100 ml @ 50 mls/hr Q2H PRN IV For Potassium 2.8 - 3.2 mEq/L ; Start 06/13/16 at 07:45; Stop 06/18/16 at 14:43; Status DC Potassium Chloride 100 ml @ 50 mls/hr Q2H PRN IV For Potassium 2.8 - 3.2 mEq/L ; Start 06/13/16 at 07:45; Stop 06/18/16 at 14:43; Status DC Potassium Chloride 100 ml @ 25 mls/hr UNSCH PRN IV For Potassium 3.3 - 3.5 mEq /L; Start 06/13/16 at 07:45; Stop 06/18/16 at 14:43; Status DC Potassium Chloride 100 ml @ 50 mls/hr Q2H PRN IV For Potassium 3.3 - 3.5 mEq/L ; Start 06/13/16 at 07:45; Stop 06/18/16 at 14:43; Status DC Magnesium Sulfate/ Sodium Chloride (Magnesium Sulfate Inj/NS Inj) 100 ml @ 50 mls/hr UNSCH PRN IV For Magnesium 0.9 - 1.1 mg/dL; Start 06/13/16 at 07:45; Stop 06/19/16 at 09:14; Status DC Magnesium Oxide 800 mg 800 mg UNSCH PRN PO For Magnesium 1.2 - 1.6 mg/dL; Start 06/13/16 at 07:45; Stop 06/18/16 at 14:43; Status DC Magnesium Sulfate/ Sodium Chloride (Magnesium Sulfate Inj/NS Inj) 100 ml @ 50 mls/hr UNSCH PRN IV For Magnesium 1.2 - 1.6 mg/dL; Start 06/13/16 at 07:45; Stop 06/19/16 at 09:15; Status DC Potassium Phosphate 2000 mg 2,000 mg Q4H PRN PO For Phosphorus < 2.5 mg/dL; Start 06/13/16 at 07:45; Stop 06/18/16 at 14:43; Status DC Sodium Phosphate/ Sodium Chloride (Sodium Phosphate Inj/NS 250 ml Inj) 250 ml @ 42 mls/hr UNSCH PRN IV For Phosphorus < 2.5 mg/dL; Start 06/13/16 at 07:45; Stop 06/19/16 at 09:15; Status DC Potassium Phosphate 2000 mg 2,000 mg UNSCH PRN PO/TUBE SEE LABEL COMMENTS; Start 06/13/16 at 07:45; Stop 06/18/16 at 14:43; Status DC Potassium Phosphate 30 mmol/ Sodium Chloride 260 ml @ 42 mls/hr UNSCH PRN IV SEE LABEL COMMENTS; Start 06/13/16 at 07:45; Stop 06/19/16 at 09:16; Status DC Sodium Chloride (NS 250 ml Inj) 250 ml @ 15 mls/hr ONCE ONCE IV ; Start at 06:00; Stop 06/14/16 at 22:39; Status DC Lorazepam 0.5 mg 0.5 mg Q6H PRN PO anxiety Last administered on 06/19/16t 09:23 ; Start 06/15/16 at 09:00; Stop 06/22/16 at 11:43; Status DC Sodium Chloride 250 ml @ 15 mls/hr ONCE ONCE IV Last administered on t 06:15; Start 06/16/16 at 06:15; Stop 06/16/16 at 22:54; Status DC Pantoprazole Sodium/Sodium Chloride (Protonix Inj/NS Inj) 100 ml @ 10 mls/hr CONTINUOUS IV Last administered on 06/20/16 06:01; Start 06/16/16 at 10:00; Stop 06/20/16 at 11:04; Status DC Propofol (Diprivan 200 Mg/20 ml Inj) 40 mg STK-MED ONCE IV ; Start 06/16/16 at 19:34; Stop 06/16/16 at 19:35; Status DC Miscellaneous Information ALL NURSING DEPARTME... UNSCH PRN XX SEE LABEL COMMENTS; Start 06/16/16 at 19:45; Stop 06/17/16 at 19:44; Status DC Diatrizoate Meglum/ Diatrizoate Sod (Md Chris Trotter) 18 ml ONCE ONCE PO ; Start 06/16/16 at 21:45; Stop 06/16/16 at 21:46; Status DC Diatrizoate Meglum/ Diatrizoate Sod (Md Chris Trotter) 18 ml ONCE ONCE PO Last administered on 06/17/16 06:58; Start 06/17/16 at 07:00; Stop 06/17/16 at 07:01; Status DC Heparin Sodium (Porcine) (Heparin Inj) 10,000 units STK-MED ONCE .ROUTE Last administered on 06/18/16 11:14; Start 06/18/16 at 08:24; Stop 06/18/16 at 08:25 ; Status DC Vancomycin HCl (Vancomycin Inj) 2,000 mg STK-MED ONCE .ROUTE ; Start 06/18/16 at 08:25; Stop 06/18/16 at 08:26; Status DC Heparin Sodium (Porcine) (Heparin Inj) 40,000 units STK-MED ONCE .ROUTE ; Start 06/18/16 at 08:25; Stop 06/18/16 at 08:26; Status DC Vancomycin HCl (Vancomycin Inj) 3,000 mg STK-MED ONCE .ROUTE Last administered on 06/18/16 11:18; Start 06/18/16 at 08:49; Stop 06/18/16 at 08:50; Status DC Midazolam HCl (Versed Inj) 10 mg STK-MED ONCE .ROUTE ; Start 06/18/16 at 08:57; Stop 06/18/16 at 08:58; Status DC Fentanyl Citrate 1000 mcg 1,000 mcg STK-MED ONCE .ROUTE ; Start 06/18/16 at 08: 57; Stop 06/18/16 at 08:58; Status DC Dexmedetomidine HCl 50 ml @ 0 mls/hr TITRATE IV Last administered on 06/18/16t 16:10; Start 06/18/16 at 14:15; Stop 06/19/16 at 09:16; Status DC Nitroglycerin/ Dextrose 250 ml @ 0 mls/hr TITRATE IV ; Start 06/18/16 at 14:15; Stop 06/19/16 at 09:17; Status DC Dobutamine HCl/ Dextrose 250 ml @ 14.76 mls/ hr [id number] IV ; Start 06/18/16 at 14:14; Stop 06/19/16 at 09:17; Status DC Dopamine HCl/ Dextrose 500 ml @ 0 mls/hr TITRATE IV ; Start 06/18/16 at 14:15; Stop 06/19/16 at 09:18; Status DC Epinephrine HCl 4 mg/Dextrose 250 ml @ 0 mls/hr TITRATE IV ; Start 06/18/16 at 14:15; Stop 06/19/16 at 09:18; Status DC Phenylephrine HCl 40 mg/Dextrose 500 ml @ 0 mls/hr TITRATE IV ; Start 06/18/16 at 14:15; Stop 06/19/16 at 09:18; Status DC Clevidipine (Cleviprex Inj) 50 ml @ 0 mls/hr TITRATE IV ; Start 06/18/16 at 14: 15; Stop 06/19/16 at 09:19; Status DC Albumin Human 12.5 gm 12.5 gm UNSCH PRN IV SEE LABEL COMMENTS Last administered on 06/18/16t 23:15; Start 06/18/16 at 14:15; Stop 06/19/16 at 09:24 ; Status DC Lactated Ringer's (Lr 1000 ml Inj) 500 ml @ 500 mls/hr Q1H PRN IV SEE LABEL COMMENTS; Start 06/18/16 at 14:14 Miscellaneous Information (Post-op Orders (for Pharmacy)) STAT ONCE OTHER ; Start 06/18/16 at 14:15; Stop 06/18/16 at 15:06; Status DC Aspirin (Aspirin Chew) 81 mg DAILY PO Last administered on 06/24/16 08:58; Start 06/19/16 at 09:00 Clopidogrel Bisulfate (Plavix) 75 mg DAILY PO Last administered on 06/19/16 08 :34; Start 06/19/16 at 09:00; Stop 06/20/16 at 18:03; Status DC Pantoprazole Sodium (Protonix) 40 mg DAILY@06 PO ; Start 06/19/16 at 06:00; Stop 06/19/16 at 06:00; Status DC Amiodarone HCl (Cordarone) 200 mg Q12HR PO Last administered on 06/24/16 19:54 ; Start 06/18/16 at 21:00; Stop 07/02/16 at 09:00 Acetaminophen (Tylenol) 650 mg Q4H PRN PO TEMPERATURE > 101 F; Start 06/18/16 at 14:15 Acetaminophen (Tylenol Supp) 650 mg Q4H PRN RECTAL TEMPERATURE > 101 F; Start 06/18/16 at 14:15; Stop 06/19/16 at 09:24; Status DC Acetaminophen (Ofirmev Inj) 1,000 mg Q6H IV Last administered on 06/19/16 08: 30; Start 06/18/16 at 15:00; Stop 06/19/16 at 09:02; Status DC Morphine Sulfate (Morphine Inj) 1 mg Q10M PRN IV PAIN SCALE 1 TO 5; Start 06/18 at 14:15; Stop 06/19/16 at 09:24; Status DC Meperidine HCl (Demerol Inj) 12.5 mg Q4H PRN IV SEE LABEL COMMENTS; Start 06/18 at 14:15; Stop 06/19/16 at 09:16; Status DC Acetaminophen/ Hydrocodone Bitart ([place] 5-325 Mg) 1 tab Q3H PRN PO PAIN SCALE 1 TO 5 Last administered on 06/19/16 02:57; Start 06/18/16 at 14:15; Stop 06/22/16 at 13:15; Status DC Acetaminophen/ Hydrocodone Bitart ([place] 5-325 Mg) 2 tab Q3H PRN PO PAIN SCALE 6 TO 10 Last administered on 06/22/16 12:45; Start 06/18/16 at 14:15; Stop 06/22/16 at 13:15; Status DC Fentanyl Citrate (fentaNYL INJ) 25 mcg Q1H PRN IV BREAKTHROUGH PAIN Last administered on 06/19/16 03:33; Start 06/18/16 at 14:15; Stop 06/19/16 at 09:24 ; Status DC Ondansetron HCl (Zofran Inj) 4 mg Q6H PRN IV PUSH NAUSEA OR VOMITING Last administered on 06/19/16 03:27; Start 06/18/16 at 14:15 Hydralazine HCl (Apresoline Inj) 10 mg Q4H PRN IV SEE LABEL COMMENTS; Start at 14:15; Stop 06/19/16 at 09:24; Status DC Metoprolol Tartrate 2.5 mg 2.5 mg Q1H PRN IV PUSH SEE LABEL COMMENTS; Start at 14:15; Stop 06/19/16 at 09:24; Status DC Potassium Chloride 100 ml @ 50 mls/hr UNSCH PRN IV SEE LABEL COMMENTS Last administered on 06/18/16 17:38; Start 06/18/16 at 14:15; Stop 06/19/16 at 09:24 ; Status DC Potassium Chloride 100 ml @ 50 mls/hr UNSCH PRN IV SEE LABEL COMMENTS; Start 06/18/16 at 14:15; Stop 06/19/16 at 09:24; Status DC Potassium Chloride (KCl 20 Meq Premix Inj) 100 ml @ 50 mls/hr UNSCH PRN IV SEE LABEL COMMENTS; Start 06/18/16 at 14:15; Stop 06/19/16 at 09:24; Status DC Potassium Chloride (KCl) 20 meq UNSCH PRN PO SEE LABEL COMMENTS; Start at 14:15; Stop 06/18/16 at 15:07; Status DC Potassium Chloride 40 meq 40 meq UNSCH PRN PO SEE LABEL COMMENTS; Start at 14:15; Stop 06/18/16 at 15:07; Status DC Magnesium Sulfate 2 gm/Sodium Chloride 104 ml @ 100 mls/hr UNSCH PRN IV SEE LABEL COMMENTS; Start 06/18/16 at 14:15; Stop 06/20/16 at 18:05; Status DC Magnesium Sulfate 2 gm/Sodium Chloride 104 ml @ 50 mls/hr UNSCH PRN IV SEE LABEL COMMENTS; Start 06/18/16 at 14:15; Stop 06/20/16 at 18:05; Status DC Calcium Chloride/ Sodium Chloride (Calcium Chloride Inj/NS Inj) 110 ml @ 100 mls/hr UNSCH PRN IV SEE LABEL COMMENTS; Start 06/18/16 at 14:15; Stop 06/19/16 at 09:25; Status DC Calcium Chloride 0.5 gm 0.5 gm UNSCH PRN IV SEE LABEL COMMENTS; Start 06/18/16 at 14:15; Stop 06/19/16 at 09:16; Status DC Insulin Human Regular/Sodium Chloride (NovoLIN R (IV INFUSION)/NS Inj) 100 ml @ 0 mls/hr TITRATE IV ; Start 06/18/16 at 14:15; Stop 06/19/16 at 09:25; Status DC Dextrose 25 ml 25 ml UNSCH PRN IV PUSH HYPOGLYCEMIA-SEE COMMENTS; Start at 14:15; Stop 06/19/16 at 09:26; Status DC Cefazolin Sodium/ Dextrose (Ancef 2 Gm Premix) 50 ml @ 100 mls/hr Q8H IV Last administered on 06/20/16 02:12; Start 06/18/16 at 18:00; Stop 06/20/16 at 02:29 ; Status DC Albuterol/ Ipratropium (Duoneb Neb) 1 ampule Q6HR NEB NEB Last administered on 06/19/16 08:55; Start 06/18/16 at 22:00; Stop 06/19/16 at 09:26; Status DC Albuterol/ Ipratropium (Duoneb Neb) 1 ampule Q2HR NEB PRN NEB WHEEZING; Start 06/18/16 at 17:00; Stop 06/19/16 at 09:26; Status DC Racepinephrine (Racepinephrine 2.25% Neb) 0.5 ml UNSCH X1 PRN NEB STRIDOR; Start 06/18/16 at 17:00; Stop 06/19/16 at 09:26; Status DC Albuterol/ Ipratropium (Duoneb Neb) 1 ampule Q6HR WHILE AWAKE NEB NEB Last administered on 06/21/16 07:19; Start 06/19/16 at 14:00; Stop 06/21/16 at 13:59 ; Status DC Docusate Sodium (Colace) 100 mg BID PO Last administered on 06/24/16 22:38; Start 06/19/16 at 21:00 Multivitamins/ Minerals Therapeutic (Theragran M Tab) 1 tab DAILY PO Last administered on 06/24/16 08:58; Start 06/20/16 at 09:00 Magnesium Hydroxide (Milk Of Magnesia Liq) 30 ml DAILY PO ; Start 06/19/16 at 10 :00; Stop 06/20/16 at 18:05; Status DC Bisacodyl (Dulcolax Supp) 10 mg UNSCH PRN RECTAL SEE LABEL COMMENTS; Start at 09:15; Stop 06/19/16 at 09:48; Status DC Polyethylene Glycol (Miralax) 17 gm DAILY PO ; Start 06/20/16 at 09:00 Sennosides (Senokot) 8.6 mg HS PO Last administered on 06/24/16 22:38; Start 06/19/16 at 21:00 Sodium Biphosphate/ Sodium Phosphate (Fleets Enema (Adult)) 133 ml UNSCH PRN RECTAL SEE LABEL COMMENTS; Start 06/19/16 at 09:15 Insulin Aspart (NovoLOG SUPPLEMENTAL SCALE) 1 02,06,10,14,18,22 SQ Last administered on 06/20/16 05:48; Start 06/19/16 at 10:00; Stop 06/20/16 at 06:01 ; Status DC Dextrose (D50w (Vial) Inj) 25 ml UNSCH PRN IV HYPOGLYCEMIA-SEE COMMENTS; Start 06/19/16 at 09:15 Glucagon (Glucagon Inj) 1 mg UNSCH PRN OTHER HYPOGLYCEMIA-SEE COMMENTS; Start 06/19/16 at 09:15 Morphine Sulfate (Morphine Inj) 2 mg Q6H PRN IV BREAKTHROUGH PAIN Last administered on 06/20/16 15:42; Start 06/19/16 at 09:30; Stop 06/20/16 at 18:03 ; Status DC Morphine Sulfate (Morphine Inj) 2 mg Q6H PRN IV BREAKTHROUGH PAIN Last administered on 06/21/16 06:37; Start 06/19/16 at 09:30; Stop 06/21/16 at 07:49 ; Status DC Carvedilol (Coreg) 3.125 mg Q12HR PO Last administered on 06/24/16 22:37; Start 06/20/16 at 09:00 Insulin Aspart (NovoLOG SUPPLEMENTAL SCALE) 1 ACHS SQ Last administered on 06/25 06:16; Start 06/20/16 at 11:00 Atorvastatin Calcium (Lipitor) 40 mg HS PO Last administered on 06/24/16 22:38 ; Start 06/19/16 at 21:00 Protamine Sulfate 500 mg 500 mg STK-MED ONCE IV ; Start 06/18/16 at 13:46; Stop 06/19/16 at 13:47; Status DC Sodium Chloride 300 ml @ As Directed STK-MED ONCE IV ; Start 06/18/16 at 13:46 ; Stop 06/19/16 at 13:47; Status DC Sodium Chloride 250 ml @ As Directed STK-MED ONCE IV ; Start 06/18/16 at 13:46 ; Stop 06/19/16 at 13:47; Status DC Parenteral Electrolytes 2,000 ml @ As Directed STK-MED ONCE IV ; Start at 13:46; Stop 06/19/16 at 13:47; Status DC Clevidipine (Cleviprex Inj) 50 ml @ As Directed STK-MED ONCE .ROUTE ; Start at 14:21; Stop 06/19/16 at 14:22; Status DC Pantoprazole Sodium (Protonix) 40 mg DAILY PO Last administered on 06/24/16 08 :58; Start 06/21/16 at 09:00 Hydromorphone HCl 1 mg 1 mg Q4H PRN IV PUSH BREAKTHROUGH PAIN Last administered on 06/22/16 07:42; Start 06/21/16 at 08:00; Stop 06/22/16 at 11:43 ; Status DC Sodium Chloride (NS 250 ml Inj) 250 ml @ 15 mls/hr ONCE ONCE IV Last administered on 06/21/16 17:27; Start 06/21/16 at 12:00; Stop 06/22/16 at 04:39 ; Status DC Furosemide (Lasix Inj) 40 mg ONCE ONCE IV Last administered on 06/21/16 17:26 ; Start 06/21/16 at 12:00; Stop 06/21/16 at 12:01; Status DC Furosemide (Lasix Inj) 40 mg BID@09,18 IV PUSH ; Start 06/22/16 at 18:00; Stop 06/22/16 at 18:00; Status DC Furosemide (Lasix Inj) 40 mg BID@09,18 IV PUSH Last administered on 06/24/16 17:48; Start 06/22/16 at 11:45 Pregabalin (Lyrica) 75 mg Q12HR PO Last administered on 06/24/16 22:38; Start 06/22/16 at 21:00 Oxycodone/ Acetaminophen (Percocet 5-325 Mg) 1 tab Q4H PRN PO PAIN 3-6; Start 06/22/16 at 13:15 Oxycodone/ Acetaminophen (Percocet 5-325 Mg) 2 tab Q4H PRN PO PAIN 7-10 Last administered on 06/25/16 04:53; Start 06/22/16 at 13:15 Sodium Polystyrene Sulfonate (Kayexalate Liq) 15 gm ONCE ONCE PO Last administered on 06/23/16 11:31; Start 06/23/16 at 10:15; Stop 06/23/16 at 10:20 ; Status DC Date of Removal: Jun 19, 2016 A/P Assessment and Plan A/P Chronic systolic heart failure EF 25-30% with mild LVH and diffuse hypokinesis Peripheral vascular disease - history of right femoropopliteal with in situ saphenous vein grafting with thrombectomy of popliteal artery/anterior posterior tibial arteries [address] Mayes Coronary artery disease recent PCI/drug-eluting stent to RCA/PDA 04/[address] Kan secondary to inferior STEMI Dual-chamber defibrillator placed 05/[address] Yousif. DDD/70 Hypertension Dyslipidemia Elevated troponin Stent thrombosis RCA- Severe CAD three-vessel LAD, circumflex, stented RCA- S/P CABG 06/18. Post op anemia Cardiology -Dr. Kan ff S/P left heart catheterization 06/09/16-left main 4050 percent occlusion, left circumflex 70% occlusion,thrombosed RCA Continue amiodarone for history of V. tach continue aspirin Kilo 30 mg by mouth daily for dyslipidemia. on Coreg and Norvasc no FORTINO-I due to acute kidney injury/ renal insufficiency CT surgery following. Acute hypoxemic respiratory failure-resolved Bronchodilator therapy every 6 hours and as needed incentive spirometry- will monitor off antibiotics- ID follow-up appreciated. Gastroesophageal reflux disease/ GIB s/p EGD with gastroparesis ADA diet. Protonix for GI prophylaxis. Colace/as needed Senokot for bowel regimen Diabetes mellitus type 2 On lispro 15 units daily at home. Sliding-scale insulin with Accu-Cheks Peripheral neuropathy secondary to diabetes Anxiety started back on Lyrica and percocet Acetaminophen for fever Acute kidney injury with underlying Chronic kidney disease stage III. hyperkalemia-resolved renal function improving and now at his baseline continue diuretics. will monitor renal function renal US with no hydronephrosis nephrology consult appreciated. Possible community-acquired pneumonia History of MRSA treated with Zyvox off antibiotics- ID following. Blood cultures 2, sputum and UA NGTD Influenza negative infrarenal abdominal aortic aneurysm- f/u as outpatient- patient is already aware. Prophylaxis - GI - Protonix - chemical prophylaxis when ok with CT surgery. Discharge Planning dc home with C vs rehab - soon- when ok with CT surgery and nephrology. see med list. f/u with pcp, cardiology, GI,CT surgery and nephrology. d/w the patient. time spent 35 min. Tru Francis MD Jun 25, 2016 08:35
[2016-06-25] MEDS ORDERED: CARV3.125 PO (08:40)
[2016-06-25] MEDS ORDERED: THERM PO (08:40)
[2016-06-25] MEDS ORDERED: AMLO5 PO (08:40)
[2016-06-25] MEDS ORDERED: OXYC-392 PO (08:40)
[2016-06-25] MEDS ORDERED: AMIO200T PO ×2 (08:40→13:22)
--- NOTE | 2016-06-25 08:40 | HHI.DCPOC ---
Discharge Care Plan Diagnosis: (1) Coronary artery disease Your Health Problems Are: Chest Pain Goals to Promote Your Health * To prevent worsening of your condition and complications * To maintain your health at the optimal level Directions to Meet Your Goals Take your medications as prescribed Follow your dietary instruction Follow activity as directed Keep your appointments as scheduled Take your immunizations and boosters as scheduled If your symptoms worsen call your PCP, if no PCP go to Urgent Care Center or Emergency Room Smoking is Dangerous to Your Health. Avoid second hand smoke Call the 24-hour hour crisis hotline for domestic abuse at Tru Francis MD Jun 25, 2016 08:40
[2016-06-25] MEDS ORDERED: OXYC1TAB63 PO (08:44)
[2016-06-25 08:58] LABS: BANDS 4 % (0-6); BASOPHILS 1 % (0-2); EOSINOPHILS 1 % (0-4); NEUTROPHIL # MANUAL DIFF 8.7 TH/MM3 (1.8-7.7); POLYS (SEG NEUTROPHILS) 64 % (16-70); WBC DIFF SAMPLE 100
[2016-06-25 08:59] LABS: PLATELET ESTIMATE SMEAR NORMAL (NORMAL); PLATELET MORPHOLOGY NORMAL (NORMAL); SCAN/DIFF FINAL DIFF MANUAL
[2016-06-25] MEDS: DOCUSATE SODIUM 100 MG CAP PO SCH (09:00)
[2016-06-25] MEDS: POLYETHYLENE GLYCOL 17 GM PKG PO SCH (09:00)
--- NOTE | 2016-06-25 12:03 | HHI.NPPN ---
Subjective History of Present Illness 65-year-old male with past medical history of ischemic heart disease, hypertension, diabetes mellitus, chronic kidney disease, peripheral vascular disease, anemia who was admitted with respiratory failure on June 07. I was called to see the patient because of elevated BUN and creatinine. The patient has creatinine of 1.5 on presentation. The patient was diagnosed with elevated troponins on admission and Non-ST elevation Myocardial infarction. He underwent cardiac catheterization on June 09 and underwent coronary artery bypass grafting x3 on June 18. Additional Remarks Patient is alert, no SOB, clinically same, no SOB, and edema in leg decreasing. Review of Systems General Constitutional: Fatigue Cardiovascular Cardiac: Edema, [place] Objective Data Data 06/24/16 06/25/16 19:00 07:00 Intake Total 1170 ml 420 ml Output Total 1500 ml 1225 ml Balance -330 ml -805 ml Intake Oral 1170 ml 420 ml Output Urine Total 1500 ml 1225 ml # Voids 1 Vital Signs Date Time Temp Pulse Resp B/P Pulse Ox O2 Delivery O2 Flow Rate FiO2 06/25/16 09:40 16 06/25/16 09:40 16 06/25/16 08:15 98.5 69 16 114/70 94 06/25/16 06:00 70 06/25/16 04:00 97.8 70 20 140/76 94 06/25/16 02:01 70 06/25/16 01:00 70 06/25/16 01:00 97.8 70 20 126/68 94 06/25/16 00:00 70 06/24/16 20:00 70 06/24/16 20:00 97.8 73 20 109/60 94 06/24/16 18:03 70 06/24/16 17:30 95 21 06/24/16 16:13 70 06/24/16 15:40 98.1 70 18 110/69 95 Arterial Line 06/24/16 15:28 70 06/24/16 14:07 70 06/24/16 12:24 70 06/24/16 12:23 70 -: 06/25/16 0508 06/25/16 0506 Physical Exam General Appearance: Well Developed, No Acute Distress, Comfortable Neck Neck Exam: Neck Supple Pulmonary Resp Exam: Breath Sounds Equal, No Distress, Rhonchi, Decreased Bases, Diminished Breath Sounds Cardiology CV Exam: Regular Gastrointestinal/Abdomen GI Exam: Soft, Non-Tender, Bowel Sounds Present Extremeties Extremities Exam: Moderate Edema, Pitting Edema Neurologic Neuro Exam: Alert, Awake Psychiatric Psych Exam: Appropriate Responses Assessment/Plan Problem List: (1) Acute renal failure (2) Chronic systolic heart failure (3) Chronic kidney disease, stage III (moderate) (4) Diabetes mellitus Plan Patient has chronic kidney disease. the baseline Creatinine is 1.3-1.5. Has minimal Proteinuria, most likely has Hypertensive or renovascular disease. Now develop KAMARI. Non Oliguric. Renal U/S noted. Continue Lasix, try to keep in negative fluid balance. Patient has CHF, with low EF. Creatinine continue to improve. Has been in negative fluid balance. Now for D/C, follow with PCP and refer to Nephrology if needed. Problem Qualifiers (1) Acute renal failure: Qualified Code: N17.0 - Acute renal failure with tubular necrosis (2) Diabetes mellitus: Qualified Code: E11.8 - Type 2 diabetes mellitus with complication, with long- term current use of insulin Maco Sheehan MD Jun 25, 2016 12:03
[2016-06-25] MEDS ORDERED: POTA-163 PO (12:22)
[2016-06-25] MEDS ORDERED: BUME1TAB26 PO (12:22)
--- NOTE | 2016-06-25 12:32 | PD.CAR.PN ---
CVT Progress Note Subjective/Hospital Course: 65-year-old male. Date of admission 06/07/2016. Past medical history includes recent heart catheterization 04/30/[address] Kan secondary to an inferior STEMI with PCI/MERE placed placed to the RCA and PDA. Left main was 30%. LAD was 40% proximal/80% diagonal. Left circumflex was 30%. EF was 20/5/30 percent. Im [place] devices placed as well. Patient had prolonged intubation During this hospitalization developed V. tach as well and a dual-chamber defibrillator was placed by Dr. Yousif /DDD 70 on 05/27. presented this admission , admitted this admission with NSTEMI, resp failure with hypoxia , underwent cardiac cath by Dr Kan, MAGALIE to stent thrombosis of RCA 06/09 pt was on Brilinta at home PMH: CAD, with 2 prior stents by the hypertension, diabetes,'s chronic systolic heart failure EF 20-25% , , peripheral vascular disease with a right femoropopliteal in situ saphenous vein revision [address] Mayes with thrombolytic colectomy to the popliteal artery and anterior and posterior tibial arteries, 06/13 NO PAIN DURING THE NIGHT OOB with assistance on aggrastat and heparin 06/16 pt developed GI Bleed with Heme + stools HGB 7.0/ for 2 units PRBC GI consult, for EGD today on protonix gtt heparin and Aggrastat dc rescheduled for surgery on 06/17 EGD completed , gastroparesis CT abd / pelvis pending HGB stable , spoke with GI Dr Lantigua will need colonoscopy as outpt hold on restarting heparin and Aggrastat for now although GI was ok with restarting anticoagulation keep scheduled for surgery in am 06/18 1. Urgent Off-pump Coronary Artery Bypass Grafting x 3 with left internal mammary artery (WANG) to left anterior descending (LAD), reverse saphenous vein graft to OM1, reverse saphenous vein graft to the RPDA 2. Left Leg Endoscopic Vein Arnold 2200cc crystalloid, 2 PRBC 750cc cell saver , EBL 1500cc had large bloody BM 06/19 extubated after surgery, on nasal cannula wants to sleep, not get OOB discussed importance if pulm toileting and getting OOB no pressors, HGB 7.[address] Langley / recheck HGB this afternoon remains on protonix gtt will transfer to stepdown 06/20 HGB 7.5/ transfuse one unit PRBC continue PPI worsening renal indices, consult Nephrology check renal US urinary retention/ per bladder scan/ refuses urinary cath " does not have the urge to void at this time " CT 130cc/ 12/ additional 120 since this am 06/21/16 No complaints. Remains anemic with increased creatinine 06/22/16 Hgb improved post transfusion - urine output also better Chest tube drainage is copious 06/23/16 chest tubes dc without difficulty CXR pending in am + edema lower ext/ neg for DVT/ on diuretics, elevate legs no MARIBETH due to pressure ulcers and severe PVD + BM eval for dc in 1-2 days / pt wants to go home 06/24/16 pt apparently take care of his mother at home recommend rehab placement for short term still has significant edema lower ext, neg DVT continue ASA, elevate legs eval for dc soon , when cleared by renal renal indices improving, still up 8 kg from surgery CXR shows small left effusion / will need to continue on diuresis at discharge . Objective: Vital Signs Date Time Temp Pulse Resp B/P Pulse Ox O2 Delivery O2 Flow Rate FiO2 06/25/16 12:01 70 06/25/16 11:15 97.6 70 16 102/58 93 06/25/16 11:00 70 06/25/16 10:00 70 06/25/16 09:40 16 06/25/16 09:40 16 06/25/16 09:00 70 06/25/16 08:15 98.5 69 16 114/70 94 06/25/16 08:00 70 06/25/16 07:00 70 06/25/16 06:00 70 06/25/16 04:00 97.8 70 20 140/76 94 06/25/16 02:01 70 06/25/16 01:00 70 06/25/16 01:00 97.8 70 20 126/68 94 06/25/16 00:00 70 06/24/16 20:00 70 06/24/16 20:00 97.8 73 20 109/60 94 06/24/16 18:03 70 06/24/16 17:30 95 21 06/24/16 16:13 70 06/24/16 15:40 98.1 70 18 110/69 95 Arterial Line 06/24/16 15:28 70 06/24/16 14:07 70 Labs: Laboratory Tests Test 06/25/16 06/25/16 05:06 05:08 Sodium Level 139 MEQ/L (136-145) Potassium Level 4.1 MEQ/L (3.5-5.1) Chloride Level 106 MEQ/L (98-107) Carbon Dioxide Level 25.3 MEQ/L (21.0-32.0) Anion Gap 8 MEQ/L (5-15) Blood Urea Nitrogen 47 MG/DL (7-18) Creatinine 1.57 MG/DL (0.60-1.30) Estimat Glomerular Filtration 44 ML/MIN (>89) Rate Random Glucose 139 MG/DL (74-106) Calcium Level 8.1 MG/DL (8.5-10.1) White Blood Count 12.8 TH/MM3 (4.0-11.0) Red Blood Count 3.28 MIL/MM3 (4.50-5.90) Hemoglobin 10.1 GM/DL (13.0-17.0) Hematocrit 28.8 % (39.0-51.0) Mean Corpuscular Volume 87.6 FL (80.0-100.0) Mean Corpuscular Hemoglobin 30.8 PG (27.0-34.0) Mean Corpuscular Hemoglobin 35.2 % Concent (32.0-36.0) Red Cell Distribution Width 15.9 % (11.6-17.2) Platelet Count 175 TH/MM3 (150-450) Mean Platelet Volume 8.9 FL (7.0-11.0) Neutrophils (%) (Auto) 67.9 % (16.0-70.0) Lymphocytes (%) (Auto) 16.6 % (9.0-44.0) Monocytes (%) (Auto) 13.0 % (0.0-8.0) Eosinophils (%) (Auto) 2.0 % (0.0-4.0) Basophils (%) (Auto) 0.5 % (0.0-2.0) Neutrophils # (Auto) 8.7 TH/MM3 (1.8-7.7) Lymphocytes # (Auto) 2.1 TH/MM3 (1.0-4.8) Monocytes # (Auto) 1.7 TH/MM3 (0-0.9) Eosinophils # (Auto) 0.3 TH/MM3 (0-0.4) Basophils # (Auto) 0.1 TH/MM3 (0-0.2) CBC Comment AUTO DIFF Differential Total Cells 100 Counted Neutrophils % (Manual) 64 % (16-70) Band Neutrophils % 4 % (0-6) Lymphocytes % 18 % (9-44) Monocytes % 12 % (0-8) Eosinophils % 1 % (0-4) Basophils % 1 % (0-2) Neutrophils # (Manual) 8.7 TH/MM3 (1.8-7.7) Differential Comment FINAL DIFF MANUAL Platelet Estimate NORMAL (NORMAL) Platelet Morphology Comment NORMAL (NORMAL) Result Diagram: 06/25/16 0508 06/25/16 0506 (1) NSTEMI (non-ST elevated myocardial infarction) (2) Coronary artery disease Plan: statin BB , ASA, statin OOB ambulate pain control pulm toileting continue diuresis lower ext edema / neg for DVT will need wedge at home to elevate legs (3) S/P CABG x 3 Plan: on ASA, BB in am , statin OOB, ambulate pulm toileting ok to dc home will need [facility] wound care (4) Acute respiratory failure with hypoxia Plan: resolved (5) SIRS (systemic inflammatory response syndrome) Plan: improved, off antibiotics / appreciate ID for input (6) History of ventricular tachycardia (7) Chronic kidney disease, stage III (moderate) Plan: creatinine 1.61> 2.60 >2.42> 1.94> 1.57 nephrology following US renal : medical renal disease (8) Chronic systolic heart failure Plan: BV ICD (9) Dyslipidemia Plan: statin (10) Hypertension Plan: stable (11) Peripheral vascular disease Plan: no maribeth hose (12) Peripheral neuropathy (13) Pressure ulcer of left heel, unstageable Plan: podiatry following (14) Pressure ulcer of right heel, unstageable (15) Blood loss anemia Plan: s/p PRBC 06/18 monitor (16) Diabetes mellitus Plan: diabetic diet / insulin sliding scale Problem Qualifiers (1) Coronary artery disease: Qualified Code: I25.10 - Coronary artery disease involving [place] coronary artery of [place] heart, angina presence unspecified (2) Peripheral neuropathy: Qualified Code: G62.9 - Peripheral polyneuropathy (3) Diabetes mellitus: Qualified Code: E11.8 - Type 2 diabetes mellitus with complication, with long- term current use of insulin Nicole Lazar Jun 25, 2016 12:32
[2016-06-25] MEDS ORDERED: [UNRECOGNIZED DRUG - CODE] (12:35)
--- NOTE | 2016-06-25 13:18 | HHI.DS ---
Discharge Summary Admission Date Jun 07, 2016 at 04:15 Discharge Date: Jun 25, 2016 Admitting Diagnosis hypoxic respiratory failure (1) History of ventricular tachycardia ICD Code: Z86.79 Diagnosis: Principal (2) Diabetes mellitus ICD Code: E11.9 Diagnosis: Principal (3) Anemia ICD Code: D64.9 Diagnosis: Principal (4) Hyperparathyroidism ICD Code: E21.3 Diagnosis: Principal (5) Peripheral neuropathy ICD Code: G62.9 Diagnosis: Principal (6) Peripheral vascular disease ICD Code: I73.9 Diagnosis: Principal (7) Leukocytosis ICD Code: D72.829 Diagnosis: Principal (8) Chronic kidney disease, stage III (moderate) ICD Code: N18.3 Diagnosis: Principal (9) Dyslipidemia ICD Code: E78.5 Diagnosis: Principal (10) Hypertension ICD Code: I10 Diagnosis: Principal (11) Chronic systolic heart failure ICD Code: I50.22 Diagnosis: Principal (12) Coronary artery disease ICD Code: I25.10 Diagnosis: Principal (13) Acute respiratory failure with hypoxia ICD Code: J96.01 Diagnosis: Principal (14) SIRS (systemic inflammatory response syndrome) ICD Code: R65.10 Diagnosis: Principal Procedures 06/16- EGD- retained food 06/18- CABG Brief History - From Admission 65-year-old male. Date of admission 06/07/2016. Past medical history includes recent heart catheterization 04/30/[address] Kan secondary to an inferior STEMI with PCI/MERE placed placed to the RCA and PDA. Left main was 30%. LAD was 40% proximal/80% diagonal. Left circumflex was 30%. EF was 20/5/30 percent. In [place] devices placed as well. Patient had prolonged intubation During this hospitalization developed V. tach as well and a dual-chamber defibrillator was placed by Dr. Yousif/DDD 70 on 05/27. Past medical history also includes coronary disease with 2 prior stents by the hypertension, diabetes,'s chronic systolic heart failure, peripheral vascular disease with a right femoropopliteal in situ saphenous vein revision [address] Mayes with thrombolytic colectomy to the popliteal artery and anterior and posterior tibial arteries. Patient presents to [facility] with acute onset of shortness of breath. CBC/BMP: 06/25/16 0508 06/25/16 0506 Significant Findings Laboratory Tests Test 06/23/16 06/24/16 06/25/16 06/25/16 03:52 05:17 05:06 05:08 Potassium Level 5.5 MEQ/L (3.5-5.1) Blood Urea Nitrogen 62 MG/DL (7-18) 57 MG/DL (7-18) 47 MG/DL (7-18) Creatinine 2.42 MG/DL 1.94 MG/DL 1.57 MG/DL (0.60-1.30) (0.60-1.30) (0.60-1.30) Estimat Glomerular Filtration 27 ML/MIN (>89) 35 ML/MIN (>89) 44 ML/MIN (>89) Rate Random Glucose 173 MG/DL 151 MG/DL 139 MG/DL (74-106) (74-106) (74-106) Calcium Level 7.5 MG/DL 8.0 MG/DL 8.1 MG/DL (8.5-10.1) (8.5-10.1) (8.5-10.1) White Blood Count 12.6 TH/MM3 12.8 TH/MM3 (4.0-11.0) (4.0-11.0) Red Blood Count 3.19 MIL/MM3 3.28 MIL/MM3 (4.50-5.90) (4.50-5.90) Hemoglobin 9.4 GM/DL 10.1 GM/DL (13.0-17.0) (13.0-17.0) Hematocrit 28.0 % 28.8 % (39.0-51.0) (39.0-51.0) Platelet Count 130 TH/MM3 (150-450) Monocytes (%) (Auto) 14.0 % 13.0 % (0.0-8.0) (0.0-8.0) Neutrophils # (Auto) 8.3 TH/MM3 8.7 TH/MM3 (1.8-7.7) (1.8-7.7) Monocytes # (Auto) 1.8 TH/MM3 1.7 TH/MM3 (0-0.9) (0-0.9) Monocytes % 12 % (0-8) Neutrophils # (Manual) 8.7 TH/MM3 (1.8-7.7) Imaging Last Impressions Chest X-Ray 06/24/16 0600 Signed Impressions: Service Date/Time: Friday, June 24, 2016 03:51 - CONCLUSION: 1. Cardiomegaly with basilar airspace disease and effusion, left greater than right. Jean Carlos Kan MD Lower Extremity Ultrasound 06/23/16 0000 Signed Impressions: Service Date/Time: Thursday, June 23, 2016 11:07 - CONCLUSION: Negative for deep venous thrombosis. History of greater saphenous vein removal for bypass on the right.. Frank Walters MD FACR Renal Ultrasound 06/20/16 0000 Signed Impressions: Service Date/Time: Monday, June 20, 2016 19:26 - CONCLUSION: 2 cysts involving the left kidney. No hydronephrosis. Mild increase in cortical echogenicity bilaterally Florencio Gomez MD Abdomen/Pelvis CT 06/17/16 0000 Signed Impressions: Service Date/Time: Friday, June 17, 2016 11:44 - CONCLUSION: 1. Uncomplicated colonic diverticulosis. 2. 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 3. Ventral abdominal wall hernia containing only fat. 4. Enlarged prostate. 5. Small bilateral pleural effusions (right larger than left). 6. Bibasilar alveolar consolidations consistent with compressive atelectasis and/or infiltrates. 7. Cardiomegaly. 8. 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 9. Left renal cysts. 10. Degenerative changes throughout the thoracolumbar spine. South Munoz MD Carotid Artery Ultrasound 06/10/16 0000 Signed Impressions: Service Date/Time: Friday, June 10, 2016 16:11 - CONCLUSION: Mild to moderate plaquing bilaterally with less than 50%% diameter stenosis by velocity criteria. Gregorio Walsh MD CT Angiography 06/07/16 0000 Signed Impressions: Service Date/Time: Tuesday, June 07, 2016 15:18 - CONCLUSION: 1. No pulmonary embolus. 2. Very small, bilateral pleural effusions and patchy bilateral airspace opacities. 3. Mildly enlarged mediastinal lymph nodes, nonspecific. 4. Several nodules up to 2 cm in size of the left adrenal gland, incompletely characterized but statistically most likely adenomas. There is a cyst of the left kidney. 5. Coronary artery calcification. Florencio Hamilton MD PE at Discharge GENERAL: This is a well-nourished, well-developed patient, in no apparent distress. CARDIOVASCULAR: Regular rate and regular rhythm without murmurs, gallops, or rubs. RESPIRATORY: Clear to auscultation. Breath sounds equal bilaterally. No wheezes , rales, or rhonchi. chest tube in place. GASTROINTESTINAL: Abdomen soft, non-tender, nondistended. Normal, active bowel sounds MUSCULOSKELETAL: Extremities without clubbing, cyanosis, or edema. NEURO: Alert & Oriented x4 to person, place, time, situation. Moves all ext x4 Hospital Course Chronic systolic heart failure EF 25-30% with mild LVH and diffuse hypokinesis Peripheral vascular disease - history of right femoropopliteal with in situ saphenous vein grafting with thrombectomy of popliteal artery/anterior posterior tibial arteries [address] Mayes Coronary artery disease recent PCI/drug-eluting stent to RCA/PDA 04/[address] Kan secondary to inferior STEMI Dual-chamber defibrillator placed 05/[address] Yousif. DDD/70 Hypertension Dyslipidemia Elevated troponin Stent thrombosis RCA- Severe CAD three-vessel LAD, circumflex, stented RCA- S/P CABG 06/18. Post op anemia Cardiology -Dr. Kan ff S/P left heart catheterization 06/09/16-left main 4050 percent occlusion, left circumflex 70% occlusion,thrombosed RCA Continue amiodarone for history of V. tach continue aspirin Kilo 30 mg by mouth daily for dyslipidemia. on Coreg and Norvasc no FORTINO-I due to acute kidney injury/ renal insufficiency CT surgery following. Acute hypoxemic respiratory failure-resolved Bronchodilator therapy every 6 hours and as needed incentive spirometry- will monitor off antibiotics- ID follow-up appreciated. Gastroesophageal reflux disease/ GIB s/p EGD with gastroparesis ADA diet. Protonix for GI prophylaxis. Colace/as needed Senokot for bowel regimen Diabetes mellitus type 2 On lispro 15 units daily at home. Sliding-scale insulin with Accu-Cheks Peripheral neuropathy secondary to diabetes Anxiety started back on Lyrica and percocet Acetaminophen for fever Acute kidney injury with underlying Chronic kidney disease stage III. hyperkalemia-resolved renal function improving and now at his baseline continue diuretics. will monitor renal function renal US with no hydronephrosis nephrology consult appreciated. Possible community-acquired pneumonia History of MRSA treated with Zyvox off antibiotics- ID following. Blood cultures 2, sputum and UA NGTD Influenza negative infrarenal abdominal aortic aneurysm- f/u as outpatient- patient is already aware. Pt Condition on Discharge: Good Discharge Disposition: Disch w/ Home Health Serv Discharge Time: > 30 minutes Discharge Instructions DIET: Follow Instructions for: Heart Healthy Diet, Diabetic Diet Speech Therapy-Diet Recommends: Regular Activities you can perform: Regular-No Restrictions Follow up Referrals: Cardiology Gastroenterology Nephrology PCP Follow-up - [address] [facility] Surgical New Medications: Bumetanide (Bumex) 1 Mg Tab 1 MG PO BID take one tab twice a day x 7 days , then take one daily x 7 days / take with potassium edema #35 Ref 1 TAB Misc. Devices (Bed Wedge/12") 1 Mis Mis PAD #1 Potassium Chloride ER (Potassium Chloride ER) 20 Meq Tab 20 MEQ PO BID take one tab twice a day x 7 days, then onece daily, take with bumex Electrolyte Replacement #35 Ref 1 TAB Amiodarone (Amiodarone) 200 Mg Tab 200 MG PO Q12HR cad Days 7 Ref 0 TAB Amlodipine (Norvasc) 5 Mg Tab 2.5 MG PO DAILY hypertension Days 30 Ref 0 TAB Carvedilol (Coreg) 3.125 Mg Tab 3.125 MG PO Q12HR cad Days 30 Ref 0 TAB Multiple Vitamins W/ Minerals (Thera M Plus) 1 Tab 1 TAB PO DAILY vitamins Days 30 Ref 0 TAB Oxycodone-Acetaminophen (Oxycodone-Acetaminophen) 5-325 mg Tab 1 TAB PO Q4H PRN pain #15 Ref 0 TAB Continued Medications: Aspirin DR (Aspirin EC) 81 Mg Tabdr 81 MG PO DAILY Ref 0 TAB Atorvastatin (Atorvastatin) 80 Mg Tab 80 MG PO HS Cholesterol Management #30 Ref 0 TAB Insulin Glargine Inj (Lantus Inj) 1,000 Unit/10 Ml Vial 85 UNITS SQ HS Blood Sugar Management Ref 0 VIAL Insulin Human Regular Inj (Novolin R Inj) 1,000 Unit/10 Ml Vial 0 SQ Q6HR Sliding Scale As Directed. PRN Blood Sugar Management #10 Ref 0 ML Omeprazole (Omeprazole) 20 Mg Tab 20 MG PO DAILY #30 Ref 0 TAB Pregabalin (Lyrica) 75 Mg Cap 75 MG PO BID #60 Ref 0 CAP Discontinued Medications: Amlodipine (Amlodipine) 5 Mg Tab 5 MG PO DAILY Blood Pressure Management #30 Ref 0 TAB Bumetanide (Bumetanide) 1 Mg Tab 1 MG PO DAILY #30 Ref 0 TAB Carvedilol (Carvedilol) 25 Mg Tab 12.5 MG PO BID #60 Ref 0 TAB Potassium Chloride ER (Potassium Chloride ER) 20 Meq Tab 20 MEQ PO DAILY Electrolyte Replacement #30 Ref 0 TAB Ticagrelor (Brilinta) 90 Mg Tab 90 MG PO BID Blood Clot Prevention #60 Ref 0 TAB Tru Francis MD Jun 25, 2016 13:18
--- NOTE | 2016-07-06 13:31 | PQ ---
Physician Query Response Document PATIENT: BRITTNEY ROBERSON : 1950 ADMIT DATE: 06/07/2016 4:15 AM DISCH DATE: 06/25/2016 3:31 PM RESPONDING PROVIDER #: Katia QUERY TEXT: Conflicting Documentation Clarification Documentation of multiple diagnoses for the same clinical presentation appears in the record. Please clarify the diagnosis/diagnoses - ASPIRATION PNA VS POSSIBLE COMMUNITY ACQUIRED PNEUMONIA Please also document if the condition is: -- Confirmed and current -- Confirmed, treated and resolved -- Ruled out -- Other, please specify PLEASE ALSO INDICATE IF THIS DIAGNOSIS WAS PRESENT ON ADMISSION (POA) The patient's Clinical Indicators include: 06/07/16 Admission Diagnosis hypoxic respiratory failure INITIAL H History of MRSA treated with Zyvox PER 06/13/16 PROGRESS NOTE - Patient admitts drinking water while lying flat on the bed and felt he di d aspirated at that time. He is complaining of sob. Denies having any chest pain, lightheadedness, n/ v/d/c. NO fevers or chills./ He did cough when he aspirated however he is not coughing now and feels improving. ASSESSMENT AND PLAN STATES - Continue IV antibiotics for aspiration PNA. Wean off O2. Aspiration prec autions discussed with the patient at length, he expressed understanding. Query created by: Arabella Engle on 06/18/2016 10:46 AM RESPONSE TEXT: CXR shows new infiltrate- Hospital Acquired Pneumonia possibly aspiration pneumonia Electronically signed by: Marie Alex MD 07/06/2016 1:27 PM
== END 2016-06-25 15:31 | disposition home health service (06) | DRG 231 ==
LOC: NEPC 01:40 → NEDA 04:15 → HIMN 13:00 → HCVI 06-18 09:36 → HCVR 06-18 15:38 → HCIN 06-19 15:30
PROVIDERS: ADMIT Internal Medicine; ATTEND Internal Medicine
PROC: 5A09357 Assistance with Respiratory Ventilation, Less than 24 Consecutive Hours, Continuous Positive Airway Pressure (ICD-10-PCS; 2016-06-07)
PROC: 02703ZZ Dilation of Coronary Artery, One Artery, Percutaneous Approach (ICD-10-PCS; 2016-06-09)
PROC: 4A023N7 Measurement of Cardiac Sampling and Pressure, Left Heart, Percutaneous Approach (ICD-10-PCS; 2016-06-09)
PROC: B2111ZZ Fluoroscopy of Multiple Coronary Arteries using Low Osmolar Contrast (ICD-10-PCS; 2016-06-09)
PROC: B2151ZZ Fluoroscopy of Left Heart using Low Osmolar Contrast (ICD-10-PCS; 2016-06-09)
PROC: 30233N1 Transfusion of Nonautologous Red Blood Cells into Peripheral Vein, Percutaneous Approach (ICD-10-PCS; 2016-06-14)
PROC: 0DJ08ZZ Inspection of Upper Intestinal Tract, Via Natural or Artificial Opening Endoscopic (ICD-10-PCS; 2016-06-16)
PROC: 021109W Bypass Coronary Artery, Two Arteries from Aorta with Autologous Venous Tissue, Open Approach (ICD-10-PCS; 2016-06-18)
PROC: 06BQ4ZZ Excision of Left Saphenous Vein, Percutaneous Endoscopic Approach (ICD-10-PCS; 2016-06-18)
PROC: 02100Z9 Bypass Coronary Artery, One Artery from Left Internal Mammary, Open Approach (ICD-10-PCS; principal; 2016-06-18 09:12)
DX: T82.867A Thrombosis due to cardiac prosthetic devices, implants and grafts, initial encounter (principal); J96.01 Acute respiratory failure with hypoxia; N17.0 Acute kidney failure with tubular necrosis; I21.4 Non-ST elevation (NSTEMI) myocardial infarction; J69.0 Pneumonitis due to inhalation of food and vomit; I50.23 Acute on chronic systolic (congestive) heart failure; J18.9 Pneumonia, unspecified organism; R65.10 Systemic inflammatory response syndrome (SIRS) of non-infectious origin without acute organ dysfunction; I13.0 Hypertensive heart and chronic kidney disease with heart failure and stage 1 through stage 4 chronic kidney disease, or unspecified chronic kidney disease; N13.8 Other obstructive and reflux uropathy; D62 Acute posthemorrhagic anemia; K92.1 Melena; E11.22 Type 2 diabetes mellitus with diabetic chronic kidney disease; E11.42 Type 2 diabetes mellitus with diabetic polyneuropathy; K31.84 Gastroparesis; N18.3 Chronic kidney disease, stage 3 (moderate); L89.620 Pressure ulcer of left heel, unstageable; L89.610 Pressure ulcer of right heel, unstageable; I25.10 Atherosclerotic heart disease of native coronary artery without angina pectoris; E78.5 Hyperlipidemia, unspecified; I25.2 Old myocardial infarction; E11.65 Type 2 diabetes mellitus with hyperglycemia; K21.9 Gastro-esophageal reflux disease without esophagitis; E11.51 Type 2 diabetes mellitus with diabetic peripheral angiopathy without gangrene; E20.9 Hypoparathyroidism, unspecified; E21.3 Hyperparathyroidism, unspecified; N40.1 Benign prostatic hyperplasia with lower urinary tract symptoms; E11.43 Type 2 diabetes mellitus with diabetic autonomic (poly)neuropathy; K44.9 Diaphragmatic hernia without obstruction or gangrene; T45.515A Adverse effect of anticoagulants, initial encounter; E87.5 Hyperkalemia; I71.4 Abdominal aortic aneurysm, without rupture; M19.90 Unspecified osteoarthritis, unspecified site; F41.9 Anxiety disorder, unspecified; F17.210 Nicotine dependence, cigarettes, uncomplicated; Y83.1 Surgical operation with implant of artificial internal device as the cause of abnormal reaction of the patient, or of later complication, without mention of misadventure at the time of the procedure; Z79.4 Long term (current) use of insulin; Z86.14 Personal history of Methicillin resistant Staphylococcus aureus infection; Z86.79 Personal history of other diseases of the circulatory system; Z95.810 Presence of automatic (implantable) cardiac defibrillator
CPT/HCPCS: 36430; 36600; 71010; 71275; 74176; 76775; 76937; 80048; 80053; 81001; 82272; 82805; 82948; 83605; 83735; 83880; 84100; 84132; 84484; 85002; 85007; 85014; 85018; 85025; 85027; 85379; 85610; 85730; 86850; 86900; 86901; 86920; 87040; 87205; 87449; 87641; 92920; 93005; 93308; 93318; 93454; 93880; 93970; 93998; 94002; 94010; 94150; 94640; 94667; 94668; 96365; 96374; 96375; C1725; C1768; C1769; C1887; C1893; C9113; C9248; C9399; J0131; J0456; J0690; J0692; J1170; J1644; J1650; J1815; J1940; J2060; J2250; J2270; J2405; J2720; J3010; J3246; J3370; J3480; J7030; J7050; P9016; P9045; Q9963; Q9967

== ENCOUNTER 2016-07-04 11:26 | Inpatient (IN) | payer MEDICARE, OTHER ==
[2016-07-04] VITALS (10 sets, daily range): BP systolic 174–189; BP diastolic 84–92; PULSE 50–92; RESP 16–23; TEMP 97.3–98.3; O2SAT 93–95
[~2016-07-04] VITALS: Ht 180.3 cm; Wt 97.6 kg
[~2016-07-04 11:26] MED LIST: AMIO200T PO; AMLO5 PO; ASPI81TA11 PO; ATOR1TAB18 PO; BUME1TAB26 PO; CARV3.125 PO; LANTUS2P SQ; LYRI75CA PO; NOVORP2 SQ; OMEP20TA PO; OXYC1TAB63 PO; POTA-163 PO; THERM PO; [UNRECOGNIZED DRUG - CODE]
--- NOTE | 2016-07-04 12:02 | PD ---
HPI Chief Complaint: Respiratory Symptoms Time Seen by Provider: 11:44 Travel History International Travel<30 days: No Contact w/Intl Traveler<30days: No Traveled to known affect area: No History of Present Illness HPI 65-year-old gentleman who status post three-vessel CABG last month, respiratory failure, thrombectomy of the right lower shimmy, who presents here with complaints of shortness of breath and right lower extremity pain. The patient denies any fevers, chills. The patient reports that over the last 2 days, he's had worsening shortness of breath and worsening swelling of his lower extremities. He reports pain and redness of the right lower extremity. He states that he's had a productive white clear phlegm cough. The patient denies any chest pain other than at his sternotomy site. PFSH Past Surgical History Cardiac Surgery: Yes (pacemaker) Other Surgery: Yes (right leg artery collapsed and re-vascularized) Social History Alcohol Use: No Tobacco Use: No Substance Use: No Allergies-Medications (Allergen,Severity, Reaction): Coded Allergies: No Known Allergies (Unverified , 07/04/16) Reported Meds & Prescriptions Reported Meds & Active Scripts Active Amiodarone (Amiodarone HCl) 200 Mg Tab 200 Mg PO BID Potassium Chloride ER (Potassium Chloride) 20 Meq Tab 20 Meq PO BID take one tab twice a day x 7 days, then onece daily, take with bumex Oxycodone-Acetaminophen 5-325 mg Tab 1 Tab PO Q4H PRN Thera M Plus (Multivitamins/Minerals Therapeutic) 1 Tab 1 Tab PO DAILY 30 Days Coreg (Carvedilol) 3.125 Mg Tab 3.125 Mg PO Q12HR 30 Days Norvasc (Amlodipine Besylate) 5 Mg Tab 2.5 Mg PO DAILY 30 Days Reported Bumex (Bumetanide) 1 Mg Tab 1 Mg PO DAILY Lyrica (Pregabalin) 75 Mg Cap 75 Mg PO BID Omeprazole 20 Mg Tab 20 Mg PO DAILY Lantus Inj (Insulin Glargine) 1,000 Unit/10 Ml Vial 85 Units SQ HS Novolin R Inj (Insulin Human Regular) 1,000 Unit/10 Ml Vial 0 SQ Q6HR PRN Sliding Scale As Directed. Atorvastatin (Atorvastatin Calcium) 80 Mg Tab 80 Mg PO HS Aspirin EC (Aspirin) 81 Mg Tabdr 81 Mg PO DAILY Review of Systems Except as stated in HPI: all other systems reviewed are Neg General / Constitutional: No: Fever, Chills HENT: No: Headaches, Lightheadedness Cardiovascular: Positive: Other, No: Chest Pain or Discomfort, Palpitations Respiratory: Positive: Cough (reductive white phlegm), Shortness of Breath, No : Wheezing Gastrointestinal: No: Nausea, Vomiting, Abdominal Pain Musculoskeletal: Positive: Edema, Pain (pain right lower extremity. Patient also has a pressure sore on his right heel.) Neurologic: Positive: Weakness, No: Dizziness, Headache Physical Exam Narrative GENERAL: Well-developed well nourished gentleman in mild to moderate rest her discomfort SKIN: Focused skin assessment warm/dry. HEAD: Atraumatic. Normocephalic. EYES: No scleral icterus. No injection or drainage. ENT: No nasal bleeding or discharge. Mucous membranes pink and moist. NECK: Trachea midline. No JVD. CARDIOVASCULAR: Paced rhythm. Rate is in the 80s. RESPIRATORY: Decreased breath sounds noted in the left lower lung field. No obvious Rales appreciated. There was diminished effort. GASTROINTESTINAL: Abdomen soft, non-tender, nondistended. MUSCULOSKELETAL: No obvious deformities. 3+ edema bilateral lower extremity is. There is redness to his right anterior gonzalez where he reports pain. There is also a stage II Rusher ulcer with eschar noted on his right heel. NEUROLOGICAL: Awake and alert. No obvious cranial nerve deficits. Motor grossly within normal limits. Normal speech. PSYCHIATRIC: Appropriate mood and affect; insight and judgment normal. Data Data Last Documented VS Vital Signs Date Time Temp Pulse Resp B/P Pulse Ox O2 Delivery O2 Flow Rate FiO2 07/04/16 15:43 85 22 174/84 94 Nasal Cannula 3 07/04/16 11:30 98.3 Orders Complete Blood Count With Diff (07/04/16 11:59) Comprehensive Metabolic Panel (07/04/16 11:59) D-Dimer (07/04/16 11:59) Act Partial Throm Time (Ptt) (07/04/16 11:59) Ckmb (Isoenzyme) Profile (07/04/16 11:59) Troponin I (07/04/16 11:59) Arterial Blood Gas (Abg) (07/04/16 11:59) Urinalysis - C+S If Indicated (07/04/16 11:59) Iv Access Insert/Monitor (07/04/16 11:59) Electrocardiogram (07/04/16 11:59) Ecg Monitoring (07/04/16 11:59) Oximetry (07/04/16 11:59) Oxygen Administration (07/04/16 11:59) Chest, Single Ap (07/04/16 11:59) Sodium Chloride 0.9% Flush (Ns Flush) (07/04/16 12:00) Ondansetron Inj (Zofran Inj) (07/04/16 12:15) Hydromorphone Pf Inj (Dilaudid Pf Inj) (07/04/16 12:15) Ct Pulmonary Angiogram (07/04/16 13:44) Bumetanide Inj (Bumex Inj) (07/04/16 14:45) Iohexol 350 Inj (Omnipaque 350 Inj) (07/04/16 15:00) Hydromorphone Pf Inj (Dilaudid Pf Inj) (07/04/16 15:30) Admit Order (Ed Use Only) (07/04/16 16:19) Labs Laboratory Tests Test 07/04/16 07/04/16 07/04/16 12:05 12:21 14:10 White Blood Count 11.3 TH/MM3 Red Blood Count 4.12 MIL/MM3 Hemoglobin 11.8 GM/DL Hematocrit 36.1 % Mean Corpuscular Volume 87.7 FL Mean Corpuscular Hemoglobin 28.6 PG Mean Corpuscular Hemoglobin 32.7 % Concent Red Cell Distribution Width 15.8 % Platelet Count 434 TH/MM3 Mean Platelet Volume 7.8 FL Neutrophils (%) (Auto) 77.3 % Lymphocytes (%) (Auto) 15.3 % Monocytes (%) (Auto) 5.3 % Eosinophils (%) (Auto) 1.2 % Basophils (%) (Auto) 0.9 % Neutrophils # (Auto) 8.7 TH/MM3 Lymphocytes # (Auto) 1.7 TH/MM3 Monocytes # (Auto) 0.6 TH/MM3 Eosinophils # (Auto) 0.1 TH/MM3 Basophils # (Auto) 0.1 TH/MM3 CBC Comment DIFF FINAL Differential Comment Activated Partial 31.0 SEC Thromboplast Time D-Dimer Quantitative (PE/DVT) 6.04 MG/L FEU Sodium Level 141 MEQ/L Potassium Level 3.7 MEQ/L Chloride Level 109 MEQ/L Carbon Dioxide Level 23.2 MEQ/L Anion Gap 9 MEQ/L Blood Urea Nitrogen 12 MG/DL Creatinine 1.02 MG/DL Estimat Glomerular Filtration 73 ML/MIN Rate Random Glucose 247 MG/DL Calcium Level 8.4 MG/DL Total Bilirubin 0.4 MG/DL Aspartate Amino Transf 18 U/L (AST/SGOT) Alanine Aminotransferase 30 U/L (ALT/SGPT) Alkaline Phosphatase 142 U/L Total Creatine Kinase 66 U/L Troponin I LESS THAN 0.02 NG/ML Total Protein 6.8 GM/DL Albumin 3.0 GM/DL Blood Gas Puncture Site RT RADIAL Blood Gas Patient Temperature 98.6 Blood Gas HCO3 22 mmol/L Blood Gas Base Excess -2.1 mmol/L Blood Gas Oxygen Saturation 87 % Arterial Blood pH 7.44 Arterial Blood Partial 32 mmHg Pressure CO2 Arterial Blood Partial 60 mmHG Pressure O2 Arterial Blood Oxygen Content 14.2 Vol % Arterial Blood 4.8 % Carboxyhemoglobin Arterial Blood Methemoglobin 0.6 % Blood Gas Hemoglobin 11.6 G/DL Oxygen Delivery Device NASAL CANNULA Blood Gas Liter Flow 2 L/M Blood Gas Inspired Oxygen 28 % Urine Color YELLOW Urine Turbidity CLEAR Urine pH 6.0 Urine Specific [place] 1.010 Urine Protein 100 mg/dL Urine Glucose (UA) 1000 mg/dL Urine Ketones NEG mg/dL Urine Occult Blood NEG Urine Nitrite NEG Urine Bilirubin NEG Urine Urobilinogen LESS THAN 2.0 MG/DL Urine Leukocyte Esterase NEG Urine RBC LESS THAN 1 /hpf Urine WBC LESS THAN 1 /hpf Urine Hyaline Casts 1 /lpf Urine Mucus FEW /lpf Microscopic Urinalysis Comment CULT NOT INDICATED MDM Medical Decision Making Medical Screen Exam Complete: Yes Emergency Medical Condition: Yes Differential Diagnosis CHF versus pneumonia versus pleural effusion Narrative Course 65 year-old gentleman with unfortunate history of diabetes mellitus, hypertension, coronary artery disease, peripheral vascular disease, who presents from home with complaints of worsening shortness of breath and worsening edema to his lower extremities. The patient has low oxygen saturations noted on room air. He is placed on O2 to bring his oxygen level up into the low 90s. Chest x-ray showed CHF. D-dimer was ordered which is elevated at 6.7. A CT angiogram was also ordered to rule out pulmonary embolism which was ruled out. The patient's been given 1 mg of IV Bumex. The patient will need to be admitted and diuresed. Given his comorbid conditions and significant pulmonary edema, he will meet criteria for inpatient admission. Diagnosis Primary Impression: Congestive heart failure Additional Impressions: Diabetes mellitus Peripheral vascular disease Lower extremity edema Pressure ulcer of right heel, unstageable S/P CABG x 3 Oliver Silva MD Jul 04, 2016 12:02 Oliver Silva MD Jul 04, 2016 12:02
[2016-07-04] MEDS ORDERED: HYDROmorphone HCL PF 1 MG/ML VIAL IVS ONE ×2 (12:15→15:30)
[2016-07-04] MEDS ORDERED: ONDANSETRON HCL 4 MG/2 ML VIAL IVP ONE (12:15)
[2016-07-04 12:17] LABS: AUTOMATED NEUTROPHIL # 8.7 TH/MM3 (1.8-7.7); BASOPHIL # 0.1 TH/MM3 (0-0.2); BASOPHIL % 0.9 % (0.0-2.0); EOSINOPHIL # 0.1 TH/MM3 (0-0.4); EOSINOPHIL % 1.2 % (0.0-4.0); HEMATOCRIT 36.1 % (39.0-51.0); HEMO FLAGS DIFF FINAL; LYMPH % 15.3 % (9.0-44.0); LYMPHOCYTE # 1.7 TH/MM3 (1.0-4.8); MEAN CELL VOLUME 87.7 FL (80.0-100.0); MEAN CORPUSCULAR HEMOGLOBIN 28.6 PG (27.0-34.0); MEAN CORPUSCULAR HGB CONC 32.7 % (32.0-36.0); MONO % 5.3 % (0.0-8.0); NEUT % 77.3 % (16.0-70.0); PLATELET COUNT 434 TH/MM3 (150-450); RED BLOOD COUNT 4.12 MIL/MM3 (4.50-5.90); RED CELL DISTRIBUTION WIDTH 15.8 % (11.6-17.2); WHITE BLOOD COUNT 11.3 TH/MM3 (4.0-11.0)
[2016-07-04 12:35] LABS: ANION GAP 9 MEQ/L (5-15); AST (GOT) 18 U/L (15-37); BICARBONATE 23.2 MEQ/L (21.0-32.0); BLOOD UREA NITROGEN 12 MG/DL (7-18); CHLORIDE 109 MEQ/L (98-107); GLOMERULAR FILTRATION RATE 73 ML/MIN (>89); POTASSIUM 3.7 MEQ/L (3.5-5.1); SODIUM (NA) 141 MEQ/L (136-145)
--- NOTE | 2016-07-04 12:37 | RADRPT ---
EXAM DATE/TIME: 07/04/2016 12:13 [facility] COMPARISON: CHEST SINGLE AP, June 24, 2016, 3:51. INDICATIONS : Short of breath. MEDICAL HISTORY : None. SURGICAL HISTORY : CABG. Pacemaker. ENCOUNTER: Initial ACUITY: 1 day PAIN SCORE: 2/10 LOCATION: Bilateral chest FINDINGS: The examination demonstrates advanced cardiomegaly. There are bilateral effusions larger on the left than the right. There is compressive atelectasis in the left lower lobe. Effusions have increased whe n compared to previous exam. Study would suggest congestive failure. The patient has a pacer in place. The patient is post median sternotomy. The visualized bony structures are grossly intact. CONCLUSION: 1. Increasing effusion suggesting congestive failure. Job Walters MD on July 04, 2016 at 12:35 Board Certified Radiologist. This report was verified electronically.
[2016-07-04 12:41] LABS: ALKALINE PHOSPHATASE 142 U/L (45-117); ALT (GPT) 30 U/L (12-78); TOTAL BILIRUBIN ADULT 0.4 MG/DL (0.2-1.0)
[2016-07-04] MEDS: SODIUM CHLORIDE 0.9% FLUSH 10 ML FLUSH IVF PRN ×2 (12:41→15:40)
[2016-07-04 12:42] LABS: CREATINE KINASE 66 U/L (39-308)
[2016-07-04] MEDS ORDERED: BUME1TAB26 PO (12:48)
[2016-07-04 13:01] LABS: BLOOD GAS BASE EXCESS -2.1 mmol/L (-2-2); BLOOD GAS CARBOXYHEMOGLOBIN 4.8 % (0-4); BLOOD GAS HCO3 22 mmol/L (22-26); BLOOD GAS METHEMOGLOBIN 0.6 % (0-2); BLOOD GAS O2 HGB SATURATION 87 % (90-100); BLOOD GAS OXYGEN CONTENT 14.2 Vol % (12.0-20.0); BLOOD GAS PCO2 32 mmHg (38-42); BLOOD GAS PO2 60 mmHG (61-120); BLOOD GAS TOTAL HGB 11.6 G/DL (12.0-16.0); TEMP CORR TO 98.6
[2016-07-04 13:02] LABS: CRITICAL VALUE YES; DRAW SITE RT RADIAL; FIO2 28 %; LITER FLOW 2 L/M; NUMBER OF ARTERIAL PUNCTURES 1; OXYGEN DEVICE NASAL CANNULA; STAT YES; ULNAR PULSE PRESENT
[2016-07-04 14:32] LABS: BLOOD, URINE NEG (NEG); COMMENT (UR) CULT NOT INDICATED; CULTURE IF INDICATED CULT NOT INDICATED; GLUCOSE,URINE 1000 mg/dL (NEG); HYALINE CAST, URINE 1 /lpf (RARE); KETONE, URINE NEG (NEG); MUCUS URINE FEW /lpf (OCC); NITRITE,URINE NEG (NEG); URINE COLOR YELLOW (YELLW/STRAW)
[2016-07-04] MEDS ORDERED: BUMETANIDE INJ 1 MG/4 ML VIAL IV PUSH ONE (14:45)
[2016-07-04] MEDS ORDERED: IOHEXOL 350 MG/ML 10 ML VIAL (for RAD DIAG) IV ONE (15:00)
--- NOTE | 2016-07-04 15:39 | RADRPT ---
EXAM DATE/TIME: 07/04/2016 14:49 [facility] COMPARISON: CT ABDOMEN & PELVIS W/O CONTRAST, June 17, 2016, 11:44. INDICATIONS : Short of breath. IV CONTRAST: 73 cc Omnipaque 350 (iohexol) IV RADIATION DOSE: 23.27 CTDIvol (mGy) MEDICAL HISTORY : Cardiovascular disease. Diabetes mellitus type 2. SURGICAL HISTORY : Pacemaker. CABG ENCOUNTER: Initial ACUITY: 2 days PAIN SCALE: 4/10 LOCATION: chest TECHNIQUE: Volumetric scanning of the chest was performed using a pulmonary embolism protocol MIP images were re constructed. Using automated exposure control and adjustment of the mA and/or kV according to patien t size, radiation dose was kept as low as reasonably achievable to obtain optimal diagnostic quality images. FINDINGS: The examination is of good diagnostic quality. No pulmonary embolus is identified. The heart is enlarged. The patient is post median sternotomy. There is no significant pericardial eff usion. There is a transvenous pacer. There are sizable bilateral pleural effusions. There is diffuse interstitial prominence. Exam would b e most consistent with congestive failure. There is bibasilar atelectasis. The visualized bony structures demonstrate degenerative changes but are otherwise intact. CONCLUSION: 1. No pulmonary embolus identified. 2. Bilateral effusions, cardiomegaly and diffuse interstitial prominence consistent with congestive f ailure Job Walters MD on July 04, 2016 at 15:36 Board Certified Radiologist. This report was verified electronically.
[2016-07-04] MEDS ORDERED: SODIUM CHLORIDE 0.9% FLUSH 10 ML FLUSH IV FLUSH PRN (17:45)
[2016-07-04] MEDS ORDERED: ONDANSETRON HCL 4 MG/2 ML VIAL IVP PRN (17:45)
[2016-07-04] MEDS ORDERED: NALOXONE HCL 0.4 MG/ML AMP IV PRN (17:45)
--- NOTE | 2016-07-04 17:47 | HHI.HP ---
[facility] Service [facility] Primary Care Physician [facility] Admission Diagnosis congestive heart failure. Pleural effusion. Renal sufficiency. Hy Diagnoses: Chief Complaint: Shortness of breathing, bilateral lower extremity edema and right leg pain Travel History International Travel<30 Days: No Contact w/Intl Traveler <30 Da: No Traveled to Known Affected Are: No History of Present Illness This is a 65-year-old male with a recent admission due to severe coronary disease 3 vessels disease initially stented but then status post CABG on 06/18/16 , history of chronic systolic heart failure with EF of 25-30% status post AICD who presented with shortness of breathing and bilateral leg swelling. Patient stated that after he was discharged on June 25 he was doing well for about a day but then started to develop lower extremity edema that worsened since he was discharged. Patient stated that the last 2 days his breathing also worsen in which he had to sleep with more pillows and then yesterday had a sleep straight up. Patient stated that his baseline he is able to walk about 100 feet without shortness of breathing but now gets short of breath easily. He stated that about 3 AM this morning he has severe right lower extremity leg pain secondary to edema. He denies any calf pain. Patient denies any fevers or chills. He did state that he had a cough which is normal with mild clear sputum production. Patient denies any chest pain, palpitation, lightheadedness/ dizziness. Past Family Social History Past Medical History Chronic systolic heart failure EF 25-30% with mild LVH and diffuse hypokinesis Peripheral vascular disease - history of right femoropopliteal with in situ saphenous vein grafting with thrombectomy of popliteal artery/anterior posterior tibial arteries [address] Mayes Coronary artery disease recent PCI/drug-eluting stent to RCA/PDA 04/[address] Kan secondary to inferior STEMI Dual-chamber defibrillator placed 05/[address] Yousif. DDD/70 Hypertension Dyslipidemia Elevated troponin Stent thrombosis RCA- Severe CAD three-vessel LAD, circumflex, stented RCA- S/P CABG 06/18. infrarenal abdominal aortic aneurysm Chronic kidney disease Type 2 diabetes insulin-dependent Peripheral neuropathy Hypertension Gastroparesis Gastritis Past Surgical History 06/16- EGD- retained food 06/18- CABG history of right femoropopliteal with in situ saphenous vein grafting with thrombectomy of popliteal artery/anterior posterior tibial arteries [address] Mayes PCI/drug-eluting stent to RCA/PDA 04/[address] Kan Dual-chamber defibrillator placed 05/[address] Yousif. Reported Medications Reported Meds & Active Scripts Active Amiodarone (Amiodarone HCl) 200 Mg Tab 200 Mg PO BID Potassium Chloride ER (Potassium Chloride) 20 Meq Tab 20 Meq PO BID take one tab twice a day x 7 days, then onece daily, take with bumex Oxycodone-Acetaminophen 5-325 mg Tab 1 Tab PO Q4H PRN Thera M Plus (Multivitamins/Minerals Therapeutic) 1 Tab 1 Tab PO DAILY 30 Days Coreg (Carvedilol) 3.125 Mg Tab 3.125 Mg PO Q12HR 30 Days Norvasc (Amlodipine Besylate) 5 Mg Tab 2.5 Mg PO DAILY 30 Days Reported Bumex (Bumetanide) 1 Mg Tab 1 Mg PO DAILY Lyrica (Pregabalin) 75 Mg Cap 75 Mg PO BID Omeprazole 20 Mg Tab 20 Mg PO DAILY Lantus Inj (Insulin Glargine) 1,000 Unit/10 Ml Vial 85 Units SQ HS Novolin R Inj (Insulin Human Regular) 1,000 Unit/10 Ml Vial 0 SQ Q6HR PRN Sliding Scale As Directed. Atorvastatin (Atorvastatin Calcium) 80 Mg Tab 80 Mg PO HS Aspirin EC (Aspirin) 81 Mg Tabdr 81 Mg PO DAILY Allergies: Coded Allergies: No Known Allergies (Unverified , 07/04/16) Active Ordered Medications Current Medications Sodium Chloride (NS Flush) 2 ml UNSCH PRN IVF FLUSH AFTER USING IV ACCESS Last administered on 07/04/16 15:40; Start 07/04/16 at 12:00 Ondansetron HCl (Zofran Inj) 4 mg ONCE ONCE IVP Last administered on 07/04/16 12:40; Start 07/04/16 at 12:15; Stop 07/04/16 at 12:16; Status DC Hydromorphone HCl (Dilaudid Pf Inj) 1 mg ONCE ONCE IVS Last administered on 12:41; Start 07/04/16 at 12:15; Stop 07/04/16 at 12:16; Status DC Bumetanide (Bumex Inj) 1 mg ONCE ONCE IV PUSH Last administered on 07/04/16 15 :39; Start 07/04/16 at 14:45; Stop 07/04/16 at 14:46; Status DC Iohexol (Omnipaque 350 Inj) 73 ml STK-MED ONCE IV Last administered on 15:00; Start 07/04/16 at 15:00; Stop 07/04/16 at 15:01; Status DC Hydromorphone HCl (Dilaudid Pf Inj) 1 mg ONCE ONCE IVS Last administered on 15:39; Start 07/04/16 at 15:30; Stop 07/04/16 at 15:31; Status DC Amiodarone HCl (Cordarone) 200 mg BID PO ; Start 07/04/16 at 21:00 Amlodipine Besylate (Norvasc) 2.5 mg DAILY PO ; Start 07/05/16 at 09:00 Aspirin (Ecotrin Ec) 81 mg DAILY PO ; Start 07/05/16 at 09:00 Atorvastatin Calcium (Lipitor) 80 mg HS PO ; Start 07/04/16 at 21:00 Carvedilol (Coreg) 3.125 mg Q12HR PO ; Start 07/04/16 at 21:00 Insulin Detemir (Levemir Inj) 85 units HS SQ ; Start 07/04/16 at 21:00 Multivitamins/ Minerals Therapeutic (Theragran M Tab) 1 tab DAILY PO ; Start 07/05/16 at 09:00 Oxycodone/ Acetaminophen (Percocet 5-325 Mg) 1 tab Q4H PRN PO pain 1-10; Start 07/04/16 at 17:45 Potassium Chloride (KCl) 20 meq BID PO ; Start 07/04/16 at 21:00 Pregabalin (Lyrica) 75 mg BID PO ; Start 07/04/16 at 21:00 Pantoprazole Sodium (Protonix) 20 mg DAILY PO ; Start 07/05/16 at 09:00 Sodium Chloride (NS Flush) 2 ml UNSCH PRN IV FLUSH FLUSH AFTER USING IV ACCESS ; Start 07/04/16 at 17:45 Sodium Chloride (NS Flush) 2 ml BID IV FLUSH ; Start 07/04/16 at 21:00 Ondansetron HCl (Zofran Inj) 4 mg Q6H PRN IVP NAUSEA OR VOMITING; Start at 17:45 Enoxaparin Sodium (Lovenox Inj) 40 mg Q24H SQ ; Start 07/04/16 at 20:00 Naloxone HCl (Narcan Inj) 0.4 mg UNSCH PRN IV SEE LABEL COMMENTS; Start at 17:45 Bumetanide (Bumex Inj) 1 mg BID@09,18 IV PUSH ; Start 07/04/16 at 18:00 Morphine Sulfate (Morphine Inj) 1 mg Q3H PRN IV PUSH pain 5-10; Start 07/04/16 at 18:00 Family History Father with NC. Social History Occasional alcohol use. Three-quarter pack per day tobaccoism. No IV drug use. Physical Exam Vital Signs Vital Signs Date Time Temp Pulse Resp B/P Pulse Ox O2 Delivery O2 Flow Rate FiO2 07/04/16 15:43 85 22 174/84 94 Nasal Cannula 3 07/04/16 14:26 22 07/04/16 13:13 50 23 183/87 93 Nasal Cannula 3 07/04/16 11:39 55 22 182/92 93 07/04/16 11:30 98.3 92 17 189/89 95 Physical Exam GENERAL: This is a well-nourished, well-developed patient, in no apparent distress. SKIN: No rashes, ecchymoses or lesions. Cool and dry. HEAD: Atraumatic. Normocephalic. No temporal or scalp tenderness. EYES: Pupils equal round and reactive. Extraocular motions intact. No scleral icterus. No injection or drainage. ENT: Nose without bleeding, purulent drainage or septal hematoma. Throat without erythema, tonsillar hypertrophy or exudate. Uvula midline. Airway patent. NECK: Trachea midline. No JVD or lymphadenopathy. Supple, nontender, no meningeal signs. CARDIOVASCULAR: Regular rate and rhythm without murmurs, gallops, or rubs. Wound on chest is dry clean and intact. RESPIRATORY: Bilateral crackles in the lower bases. No rhonchi or wheezing. GASTROINTESTINAL: Abdomen soft, non-tender, nondistended. No hepato-splenomegaly , or palpable masses. No guarding. MUSCULOSKELETAL:B/L swelling more on the left leg than the right. +1 pitting edema on the right LE. Trace to +1 pitting edema on the left LE. No calf tenderness. Negative Homans sign bilaterally. Mild pinkish color changes in the right lower extremity. NEUROLOGICAL: Awake and alert. Cranial nerves II through XII intact. Motor and sensory grossly within normal limits. Five out of 5 muscle strength in all muscle groups. Normal speech. Laboratory Laboratory Tests Test 07/04/16 07/04/16 07/04/16 12:05 12:21 14:10 White Blood Count 11.3 Red Blood Count 4.12 Hemoglobin 11.8 Hematocrit 36.1 Mean Corpuscular Volume 87.7 Mean Corpuscular Hemoglobin 28.6 Mean Corpuscular Hemoglobin 32.7 Concent Red Cell Distribution Width 15.8 Platelet Count 434 Mean Platelet Volume 7.8 Neutrophils (%) (Auto) 77.3 Lymphocytes (%) (Auto) 15.3 Monocytes (%) (Auto) 5.3 Eosinophils (%) (Auto) 1.2 Basophils (%) (Auto) 0.9 Neutrophils # (Auto) 8.7 Lymphocytes # (Auto) 1.7 Monocytes # (Auto) 0.6 Eosinophils # (Auto) 0.1 Basophils # (Auto) 0.1 CBC Comment DIFF FINAL Differential Comment Activated Partial 31.0 Thromboplast Time D-Dimer Quantitative (PE/DVT) 6.04 Sodium Level 141 Potassium Level 3.7 Chloride Level 109 Carbon Dioxide Level 23.2 Anion Gap 9 Blood Urea Nitrogen 12 Creatinine 1.02 Estimat Glomerular Filtration 73 Rate Random Glucose 247 Calcium Level 8.4 Total Bilirubin 0.4 Aspartate Amino Transf 18 (AST/SGOT) Alanine Aminotransferase 30 (ALT/SGPT) Alkaline Phosphatase 142 Total Creatine Kinase 66 Troponin I LESS THAN 0.02 Total Protein 6.8 Albumin 3.0 Blood Gas Puncture Site RT RADIAL Blood Gas Patient Temperature 98.6 Blood Gas HCO3 22 Blood Gas Base Excess -2.1 Blood Gas Oxygen Saturation 87 Arterial Blood pH 7.44 Arterial Blood Partial 32 Pressure CO2 Arterial Blood Partial 60 Pressure O2 Arterial Blood Oxygen Content 14.2 Arterial Blood 4.8 Carboxyhemoglobin Arterial Blood Methemoglobin 0.6 Blood Gas Hemoglobin 11.6 Oxygen Delivery Device NASAL CANNULA Blood Gas Liter Flow 2 Blood Gas Inspired Oxygen 28 Urine Color YELLOW Urine Turbidity CLEAR Urine pH 6.0 Urine Specific [place] 1.010 Urine Protein 100 Urine Glucose (UA) 1000 Urine Ketones NEG Urine Occult Blood NEG Urine Nitrite NEG Urine Bilirubin NEG Urine Urobilinogen LESS THAN 2.0 Urine Leukocyte Esterase NEG Urine RBC LESS THAN 1 Urine WBC LESS THAN 1 Urine Hyaline Casts 1 Urine Mucus FEW Microscopic Urinalysis Comment CULT NOT INDICATED Result Diagram: 07/04/16 1205 07/04/16 [address] Angiography 07/04/16 1344 Signed Impressions: Service Date/Time: Monday, July 04, 2016 14:49 - CONCLUSION: 1. No pulmonary embolus identified. 2. Bilateral effusions, cardiomegaly and diffuse interstitial prominence consistent with congestive failure Job Walters MD Chest X-Ray 07/04/16 1159 Signed Impressions: Service Date/Time: Monday, July 04, 2016 12:13 - CONCLUSION: 1. Increasing effusion suggesting congestive failure. Job Walters MD Assessment and Plan Assessment and Plan 65-year-old male with a recent admission due to inferior STEMI status post stent placement and CABG with also history of chronic systolic heart failure with EF 25-30% who presented with shortness of breathing and bilateral lower extremity edema Dyspnea -Chest x-ray suggests CHF. Due to elevated d-dimer CTA was done which also suggest congestive heart failure. -Most likely secondary to CHF exacerbation. Bilateral lower extremity edema -Most likely secondary to CHF exacerbation. -Will also get an ultrasound of the right lower leg since that is more painful. Acute on chronic systolic heart failure with EF 25-30% status post dual chamber defibrillator -Patient on home Bumex 1 mg by mouth daily. -We will increase to 1 mg IV twice a day. -2 L fluid restriction. -Strict ins and outs. -Continue to monitor patient clinically. -Consult his homeworker for further management. Severe coronary artery disease three-vessel disease LAD, circumflex, stented RCA status post CABG on 06/18 -Resume his home medication. Peripheral vascular disease - history of right femoropopliteal with in situ saphenous vein grafting with thrombectomy of popliteal artery/anterior posterior tibial arteries [address] Mayes/Hypertension/Dyslipidemia/GERD/ gastroparesis/history of V. tach -Resume home medication. Type 2 diabetes insulin-dependent complicated by peripheral neuropathy -Resume home medication. -Start insulin sliding scale. Chronic kidney disease -Improved. -Continue to monitor. -Avoid nephrotoxins. infrarenal abdominal aortic aneurysm- -f/u as outpatient- patient is already aware. DVT prophylaxis -Lovenox Code Status Full code Discussed Condition With With patient Physician Certification 2 Midnight Certification Type: Admission for Inpatient Services Order for Inpatient Services The services are ordered in accordance with Medicare regulations or non- Medicare payer requirements, as applicable. In the case of services not specified as inpatient-only, they are appropriately provided as inpatient services in accordance with the 2-midnight benchmark. Estimated LOS (days): 3 3 days is the estimated time the patient will need to remain in the hospital, assuming treatment plan goals are met and no additional complications. Post-Hospital Plan: Home Health Jesica Henderson MD Jul 04, 2016 17:47
[2016-07-04] MEDS: BUMETANIDE INJ 1 MG/4 ML VIAL IV PUSH SCH (18:00)
[2016-07-04] MEDS ORDERED: DEXTROSE 50% IN WATER 50 ML VIAL(D50) IV PUSH PRN (18:15)
[2016-07-04] MEDS ORDERED: GLUCAGON 1 MG/ML VIAL OTHER PRN (18:15)
[2016-07-04] MEDS: MORPHINE SULFATE 4 MG/ML INJ IV PUSH PRN ×2 (18:58→22:00)
[2016-07-04] MEDS: PREGABALIN 75 MG CAP PO SCH (20:10)
[2016-07-04] MEDS: CARVEDILOL 3.125 MG TAB PO SCH (20:10)
[2016-07-04] MEDS: AMIODARONE 200 MG TAB PO SCH (20:10)
[2016-07-04] MEDS: POTASSIUM CHLORIDE 20 MEQ CONTROLLED RELEASE TAB PO SCH (20:10)
[2016-07-04] MEDS: ATORVASTATIN 80 MG TAB PO SCH (20:11)
[2016-07-04] MEDS: INSULIN ASPART SUPPLEMENTAL SCALE SQ SCH (20:12)
[2016-07-04] MEDS: SODIUM CHLORIDE 0.9% FLUSH 10 ML FLUSH IV FLUSH SCH (20:12)
[2016-07-04] MEDS: ENOXAPARIN SODIUM 40 MG/0.4 ML SYRINGE SQ SCH (20:12)
[2016-07-04] MEDS: INSULIN DETEMIR 100 UNITS/ML VIAL SQ SCH (20:12)
[2016-07-04] MEDS: oxyCODONE/ACETAMINOPHEN 5 MG/325 MG TAB PO PRN (20:23)
--- NOTE | 2016-07-04 21:51 | RADRPT ---
EXAM DATE/TIME: 07/04/2016 18:36 [facility] COMPARISON: No previous studies available for comparison. INDICATIONS : Right leg swelling. MEDICAL HISTORY : Myocardial infarction. Peripheral Neuropathy. Peripheral vascular disease. Afib. Diabetes. SURGICAL HISTORY : Coronary artery stent. Appendectomy. CABG Pacemaker. Right leg artery bypass. ENCOUNTER: Subsequent ACUITY: 1 week PAIN SCORE: 3/10 LOCATION: Right leg. TECHNIQUE: Venous ultrasound of the leg was performed from the inguinal ligament to the proximal calf. Real-sandhya e, color Doppler and spectral tracing, compression and augmentation techniques were used. FINDINGS: There is normal compressibility of the deep venous system from the inguinal region to the proximal ca lf. No echogenic clot is seen in the lumen of the common femoral, femoral, popliteal, and posterior tibial veins. There is a normal response of the venous system to proximal and distal augmentation an d respiration. The greater saphenous vein is absent. There is superficial edema seen. CONCLUSION: No DVT. Florencio Jules MD on July 04, 2016 at 21:49 Board Certified Radiologist. This report was verified electronically.
[2016-07-05] VITALS (27 sets, daily range): BP systolic 128–148; BP diastolic 71–88; PULSE 68–73; RESP 16–20; TEMP 97.6–98.2; O2SAT 91–95
[2016-07-05] MEDS: oxyCODONE/ACETAMINOPHEN 5 MG/325 MG TAB PO PRN ×3 (00:51→10:52)
[2016-07-05] MEDS: MORPHINE SULFATE 4 MG/ML INJ IV PUSH PRN ×7 (01:26→23:39)
[2016-07-05 06:11] LABS: HEMATOCRIT 31.5 % (39.0-51.0); MEAN CELL VOLUME 88.9 FL (80.0-100.0); MEAN CORPUSCULAR HEMOGLOBIN 28.4 PG (27.0-34.0); MEAN CORPUSCULAR HGB CONC 31.9 % (32.0-36.0); PLATELET COUNT 370 TH/MM3 (150-450); RED BLOOD COUNT 3.55 MIL/MM3 (4.50-5.90); REVIEW FLAG FINAL; WHITE BLOOD COUNT 12.5 TH/MM3 (4.0-11.0)
[2016-07-05 06:59] LABS: BICARBONATE 23.6 MEQ/L (21.0-32.0); MAGNESIUM 1.9 MG/DL (1.5-2.5); POTASSIUM 4.1 MEQ/L (3.5-5.1)
[2016-07-05] MEDS: INSULIN ASPART SUPPLEMENTAL SCALE SQ SCH ×4 (07:00→21:00)
[2016-07-05] MEDS: BUMETANIDE INJ 1 MG/4 ML VIAL IV PUSH SCH ×2 (08:15→18:36)
[2016-07-05] MEDS: PANTOPRAZOLE SOD 20 MG DELAYED RELEASE TAB PO SCH (08:15)
[2016-07-05] MEDS: PREGABALIN 75 MG CAP PO SCH ×2 (08:15→20:39)
[2016-07-05] MEDS: AMIODARONE 200 MG TAB PO SCH ×2 (08:16→20:37)
[2016-07-05] MEDS: ASPIRIN EC 81 MG TABEC PO SCH (08:16)
[2016-07-05] MEDS: amLODIPine BESYLATE 5 MG TAB PO SCH (08:16)
[2016-07-05] MEDS: SODIUM CHLORIDE 0.9% FLUSH 10 ML FLUSH IV FLUSH SCH ×2 (08:16→20:40)
[2016-07-05] MEDS: POTASSIUM CHLORIDE 20 MEQ CONTROLLED RELEASE TAB PO SCH ×2 (08:16→20:39)
[2016-07-05] MEDS: MULTIVITAMINS/MINERALS THERAPEUTIC TAB PO SCH (08:16)
[2016-07-05] MEDS: CARVEDILOL 3.125 MG TAB PO SCH ×2 (08:16→20:37)
[2016-07-05] MEDS ORDERED: PILL SPLITTER OTHER PRN (10:30)
--- NOTE | 2016-07-05 14:01 | HHI.PR ---
Subjective Remarks Follow-up for congestive heart failure and leg pain. Patient stated that pain medication does not control leg pain. He stated that his breathing has improved. He stated that he is able to lay more flat. Swelling has also improved. Denies any cough. Objective Vitals Vital Signs Date Time Temp Pulse Resp B/P Pulse Ox O2 Delivery O2 Flow Rate FiO2 07/05/16 13:00 70 07/05/16 12:26 18 07/05/16 12:14 18 07/05/16 12:00 70 07/05/16 11:00 97.6 70 20 128/78 94 07/05/16 11:00 70 07/05/16 10:00 70 07/05/16 09:20 18 07/05/16 09:00 70 07/05/16 08:00 71 07/05/16 08:00 97.6 71 20 128/71 94 07/05/16 07:00 70 07/05/16 06:01 98.2 70 18 136/84 95 07/05/16 06:00 70 07/05/16 05:00 70 07/05/16 04:00 70 07/05/16 03:00 70 07/05/16 02:00 70 07/05/16 01:11 98.1 73 16 148/83 94 07/05/16 01:00 70 07/05/16 00:00 68 07/04/16 23:00 70 07/04/16 22:00 72 07/04/16 21:00 82 07/04/16 20:30 97.3 84 16 176/89 93 07/04/16 20:00 90 07/04/16 19:44 94 Nasal Cannula 3.00 07/04/16 15:43 85 22 174/84 94 Nasal Cannula 3 07/04/16 14:26 22 I/O 07/04/16 07/04/16 07/04/16 07/05/16 07/05/16 07/05/16 07:00 15:00 23:00 07:00 15:00 23:00 Intake Total 680 ml Output Total 425 ml 480 ml Balance -425 ml 200 ml Intake Oral 680 ml Output Urine Total 425 ml 480 ml # Voids 1 Result Diagram: 07/05/16 0359 07/05/16 0359 Objective Remarks GENERAL:in NAD CARDIOVASCULAR: Regular rate and rhythm without murmurs, gallops, or rubs. RESPIRATORY: Bilateral basilar crackles. GASTROINTESTINAL: Abdomen soft, non-tender, nondistended. MUSCULOSKELETAL: Right leg trace to +1 pitting edema. Left leg trace pitting edema. BACK: Nontender without obvious deformity. No CVA tenderness. Medications and IVs Current Medications Sodium Chloride (NS Flush) 2 ml UNSCH PRN IVF FLUSH AFTER USING IV ACCESS Last administered on 07/04/16 15:40; Start 07/04/16 at 12:00 Ondansetron HCl (Zofran Inj) 4 mg ONCE ONCE IVP Last administered on 07/04/16 12:40; Start 07/04/16 at 12:15; Stop 07/04/16 at 12:16; Status DC Hydromorphone HCl (Dilaudid Pf Inj) 1 mg ONCE ONCE IVS Last administered on 12:41; Start 07/04/16 at 12:15; Stop 07/04/16 at 12:16; Status DC Bumetanide (Bumex Inj) 1 mg ONCE ONCE IV PUSH Last administered on 07/04/16 15 :39; Start 07/04/16 at 14:45; Stop 07/04/16 at 14:46; Status DC Iohexol (Omnipaque 350 Inj) 73 ml STK-MED ONCE IV Last administered on 15:00; Start 07/04/16 at 15:00; Stop 07/04/16 at 15:01; Status DC Hydromorphone HCl (Dilaudid Pf Inj) 1 mg ONCE ONCE IVS Last administered on 15:39; Start 07/04/16 at 15:30; Stop 07/04/16 at 15:31; Status DC Amiodarone HCl (Cordarone) 200 mg BID PO Last administered on 07/05/16 08:16; Start 07/04/16 at 21:00 Amlodipine Besylate (Norvasc) 2.5 mg DAILY PO Last administered on 07/05/16 08: 16; Start 07/05/16 at 09:00 Aspirin (Ecotrin Ec) 81 mg DAILY PO Last administered on 07/05/16 08:16; Start 07/05/16 at 09:00 Atorvastatin Calcium (Lipitor) 80 mg HS PO Last administered on 07/04/16 20:11 ; Start 07/04/16 at 21:00 Carvedilol (Coreg) 3.125 mg Q12HR PO Last administered on 07/05/16 08:16; Start 07/04/16 at 21:00 Insulin Detemir (Levemir Inj) 85 units HS SQ ; Start 07/04/16 at 21:00 Multivitamins/ Minerals Therapeutic (Theragran M Tab) 1 tab DAILY PO Last administered on 07/05/16 08:16; Start 07/05/16 at 09:00 Oxycodone/ Acetaminophen (Percocet 5-325 Mg) 1 tab Q4H PRN PO pain 1-10 Last administered on 07/05/16 10:52; Start 07/04/16 at 17:45; Stop 07/05/16 at 13:50; Status DC Potassium Chloride (KCl) 20 meq BID PO Last administered on 07/05/16 08:16; Start 07/04/16 at 21:00 Pregabalin (Lyrica) 75 mg BID PO Last administered on 07/05/16 08:15; Start 07/04/16 at 21:00 Pantoprazole Sodium (Protonix) 20 mg DAILY PO Last administered on 07/05/16 08: 15; Start 07/05/16 at 09:00 Sodium Chloride (NS Flush) 2 ml UNSCH PRN IV FLUSH FLUSH AFTER USING IV ACCESS ; Start 07/04/16 at 17:45 Sodium Chloride (NS Flush) 2 ml BID IV FLUSH Last administered on 07/05/16 08: 16; Start 07/04/16 at 21:00 Ondansetron HCl (Zofran Inj) 4 mg Q6H PRN IVP NAUSEA OR VOMITING; Start at 17:45 Enoxaparin Sodium (Lovenox Inj) 40 mg Q24H SQ Last administered on 07/04/16 20: 12; Start 07/04/16 at 20:00 Naloxone HCl (Narcan Inj) 0.4 mg UNSCH PRN IV SEE LABEL COMMENTS; Start at 17:45 Bumetanide (Bumex Inj) 1 mg BID@,18 IV PUSH Last administered on 07/05/16 08: 15; Start 07/04/16 at 18:00 Morphine Sulfate (Morphine Inj) 1 mg Q3H PRN IV PUSH pain 5-10 Last administered on 07/05/16 12:23; Start 07/04/16 at 18:00; Stop 07/05/16 at 13:50; Status DC Dextrose (D50w (Vial) Inj) 25 ml UNSCH PRN IV PUSH HYPOGLYCEMIA-SEE COMMENTS; Start 07/04/16 at 18:15 Glucagon (Glucagon Inj) 1 mg UNSCH PRN OTHER HYPOGLYCEMIA-SEE COMMENTS; Start 07/04/16 at 18:15 Insulin Aspart (NovoLOG SUPPLEMENTAL SCALE) 1 ACHS SLIDING SCALE SQ Last administered on 07/05/16 11:00; Start 07/04/16 at 21:00 Lisinopril (Prinivil) 2.5 mg DAILY PO ; Start 07/06/16 at 09:00 Miscellaneous (Pill Splitter) 1 ea UNSCH PRN OTHER SEE LABEL COMMENTS; Start at 10:30 Clopidogrel Bisulfate (Plavix) 75 mg DAILY PO ; Start 07/06/16 at 09:00 Morphine Sulfate (Morphine Inj) 2 mg Q3H PRN IV PUSH pain 5-10; Start 07/05/16 at 15:00; Status UNV Oxycodone HCl (Roxicodone) 15 mg Q4H PRN PO PAIN1-10; Start 07/05/16 at 14:00; Status UNV A/P Assessment and Plan 65-year-old male with a recent admission due to inferior STEMI status post stent placement and CABG with also history of chronic systolic heart failure with EF 25-30% who presented with shortness of breathing and bilateral lower extremity edema Acute on chronic systolic heart failure with EF 25-30% status post dual chamber defibrillator -Chest x-ray suggests CHF. Due to elevated d-dimer CTA was done which also suggest congestive heart failure. -Patient on home Bumex 1 mg by mouth daily. -Currently giving Bumex 1 mg IV twice a day. Since patient is clinically improving will continue with current regimen. -2 L fluid restriction. -Strict ins and outs. -Continue to monitor patient clinically. 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 Bilateral lower extremity edema -Most likely secondary to CHF exacerbation. -Ultrasound was negative for any DVT. Severe coronary artery disease three-vessel disease LAD, circumflex, stented RCA status post CABG on 06/18 -Continue home medication. Peripheral vascular disease - history of right femoropopliteal with in situ saphenous vein grafting with thrombectomy of popliteal artery/anterior posterior tibial arteries [address] Mayes/Hypertension/Dyslipidemia/GERD/ gastroparesis/history of V. tach -Continue home medication. -Patient stated that his peripheral neuropathy pain has worsened due to the edema and asking to increase pain meds. Will discontinue Percocet and give him oxycodone 15 mg 3 times a day when necessary for pain. Increase morphine if oral does not work to 2 mg IV. Type 2 diabetes insulin-dependent complicated by peripheral neuropathy -Resume home medication. -on SSI Chronic kidney disease -Improved. -Continue to monitor. -Avoid nephrotoxins. infrarenal abdominal aortic aneurysm- -f/u as outpatient- patient is already aware. DVT prophylaxis -Lovenox Discharge Planning Patient requires to be on IV Bumex. Jesica Henderson MD Jul 05, 2016 14:01
--- NOTE | 2016-07-05 15:42 | EKG ---
Date Performed: 07/04/2016 Time Performed: 11:44:07 PTAGE: 65 years EKG: ELECTRONIC VENTRICULAR PACEMAKER Compared to previous tracing, there are now some [place] ats present, previous EKG showed total AV pacing ABNORMAL RHYTHM ECG PREVIOUS TRACING : 06/19/2016 04.51 DOCTOR: Denise Madison Interpretating Date/Time 07/05/2016 15:40:44
--- NOTE | 2016-07-05 16:51 | MB ---
cc: ASHER ABAD DATE OF CONSULTATION 07/05/16 1950 REASON FOR CONSULTATION Heart failure exacerbation. HISTORY OF PRESENT ILLNESS 65-year-old male with past medical history significant for coronary artery disease status post bypass surgery recently discharged on June 18, 2016, hypertension, hyperlipidemia, LV systolic dysfunction with an EF of 30%, diabetic, status post AICD placement who presented to the hospital with increased difficulty breathing and bilateral leg swelling. The patient was recently discharged on June 25 after undergoing bypass surgery. He reports he has been doing well at home. He is compliant with medications, however, leg swelling started to worsen with shortness of breath. Thus, he came to the emergency department. He denies any chest pain, chest trauma, nausea, vomiting , diarrhea, fever or chills, palpitations, lightheadedness or dizziness. REVIEW OF SYSTEMS Negative except for what is mentioned in HPI. PAST MEDICAL HISTORY 1. Ischemic cardiomyopathy with EF of 30% status post AICD placement. 2. Peripheral vascular disease, 3. Hypertension, 4. Hyperlipidemia, 5. Diabetes 7. Chronic kidney disease, 8. Hypertension. PAST SURGICAL HISTORY 1. AICD 2. PCI and stents 3. Bypass surgery HOME MEDICATIONS 1. Amiodarone 200 mg p.o. b.i.d. 2. Potassium chloride 20 mEq by mouth daily 3. Coreg 3.125 mg p.o. b.i.d. 4. Norvasc 5 mg p.o. daily. 5. Bumex 1 mg p.o. daily 6. Lyrica 75 mg p.o. b.i.d. 7. Protonix 20 mg p.o. daily 8. Lantus subcu 9. Novolin subcu 10. Lipitor 80 mg p.o. daily, 11. Aspirin 81 mg p.o. daily ALLERGIES NO KNOWN DRUG ALLERGIES. FAMILY HISTORY Noncontributory. SOCIAL HISTORY No IV drug use. Occasional alcohol use. No smoking. PHYSICAL EXAMINATION VITAL SIGNS: Temperature 97, respiratory rate 20, heart rate 70, blood pressure 128/71, O2 sats 100% at room air. GENERAL: Awake, alert, oriented times three in no acute distress. NECK: No JVD, no carotid bruits. HEART: Regular rate and rhythm. No murmurs, rubs or gallops. LUNGS:Bilateral rales at bases, poor inspiratory effort. No wheezes or rhonchi. ABDOMEN: Obese. Positive bowel sounds, soft, nontender, nondistended. EXTREMITIES: There is +2 edema. Decreased pulses throughout. LABORATORY DATA CBC - hemoglobin 10, hematocrit 31, platelet count of 370. Chemistry - sodium 143, potassium 4.1, BUN 11, creatinine 0.95, troponin less than 0.02. IMAGING STUDIES Chest CTA negative for PE. Chest x-ray shows pulmonary edema. Lower extremity ultrasound shows no DVT. ASSESSMENT/PLAN 65-year-old man admitted with acute on chronic heart systolic heart failure exacerbation in the setting of recent bypass surgery in no PRN diuretics at home. He remains afebrile and hemodynamically stable, chest pain free. He has been responding to IV diuresis. Recommendations: 1. Continue IV diuresis. 2. Aggressive medical management for CAD continue the Lipitor, beta-sj, add an FORTINO inhibitor and Plavix. 3. Encourage incentive spirometry and ambulation 4. Avoid electrolyte abnormalities. 5. Follow renal function Thank you for the opportunity to take part in the care of this patient. Asher Abad MD HIGH PRESSURE FIRER/SA /10:24 AM /4:35 PM DARCIE
[2016-07-05] MEDS: ATORVASTATIN 80 MG TAB PO SCH (20:39)
[2016-07-05] MEDS: ENOXAPARIN SODIUM 40 MG/0.4 ML SYRINGE SQ SCH (20:40)
[2016-07-05] MEDS: INSULIN DETEMIR 100 UNITS/ML VIAL SQ SCH (20:41)
[2016-07-06] VITALS (27 sets, daily range): BP systolic 125–152; BP diastolic 78–89; PULSE 69–71; RESP 16–20; TEMP 97.5–98.6; O2SAT 91–94
[2016-07-06] MEDS: MORPHINE SULFATE 4 MG/ML INJ IV PUSH PRN ×6 (03:21→21:23)
[2016-07-06 05:38] LABS: BICARBONATE 25.8 MEQ/L (21.0-32.0); POTASSIUM 4.4 MEQ/L (3.5-5.1)
[2016-07-06] MEDS: INSULIN ASPART SUPPLEMENTAL SCALE SQ SCH ×4 (06:02→21:00)
--- NOTE | 2016-07-06 08:32 | PD.CARD.PN ---
Subjective Subjective Remarks no overnight events (Asher Meade MD) Objective Medications Current Medications Medications (Trade) Dose Ordered Sig/Lily Route Start Time Stop Time Status Last Admin (NS Flush) 2 ml UNSCH PRN IVF 07/04/16 12:00 07/04/16 15:40 (Cordarone) 200 mg BID PO 07/04/16 21:00 07/05/16 20:37 (Norvasc) 2.5 mg DAILY PO 07/05/16 09:00 07/05/16 08:16 (Ecotrin Ec) 81 mg DAILY PO 07/05/16 09:00 07/05/16 08:16 (Lipitor) 80 mg HS PO 07/04/16 21:00 07/05/16 20:39 (Coreg) 3.125 mg Q12HR PO 07/04/16 21:00 07/05/16 20:37 (Levemir Inj) 85 units HS SQ 07/04/16 21:00 (Theragran M Tab) 1 tab DAILY PO 07/05/16 09:00 07/05/16 08:16 (KCl) 20 meq BID PO 07/04/16 21:00 07/05/16 20:39 (Lyrica) 75 mg BID PO 07/04/16 21:00 07/05/16 20:39 (Protonix) 20 mg DAILY PO 07/05/16 09:00 07/05/16 08:15 (NS Flush) 2 ml UNSCH PRN IV FLUSH 07/04/16 17:45 (NS Flush) 2 ml BID IV FLUSH 07/04/16 21:00 07/05/16 20:40 (Zofran Inj) 4 mg Q6H PRN IVP 07/04/16 17:45 (Lovenox Inj) 40 mg Q24H SQ 07/04/16 20:00 07/05/16 20:40 (Narcan Inj) 0.4 mg UNSCH PRN IV 07/04/16 17:45 (Bumex Inj) 1 mg BID@09,18 IV PUSH 07/04/16 18:00 07/05/16 18:36 (D50w (Vial) Inj) 25 ml UNSCH PRN IV PUSH 07/04/16 18:15 (Glucagon Inj) 1 mg UNSCH PRN OTHER 07/04/16 18:15 (Prinivil) 2.5 mg DAILY PO 07/06/16 09:00 (Pill Splitter) 1 ea UNSCH PRN OTHER 07/05/16 10:30 (Plavix) 75 mg DAILY PO 07/06/16 09:00 (Morphine Inj) 2 mg Q3H PRN IV PUSH 07/05/16 15:00 07/06/16 06:04 (Roxicodone) 15 mg Q4H PRN PO 07/05/16 14:00 07/06/16 05:09 Vital Signs / I&O Vital Signs Date Time Temp Pulse Resp B/P Pulse Ox O2 Delivery O2 Flow Rate FiO2 07/06/16 07:00 70 07/06/16 06:00 70 07/06/16 05:00 70 07/06/16 04:21 98.6 71 16 144/83 91 07/06/16 04:00 70 07/06/16 03:00 70 07/06/16 02:00 70 07/06/16 01:00 70 07/06/16 00:22 98.1 70 16 143/83 94 07/06/16 00:00 70 07/05/16 23:00 70 07/05/16 22:00 70 07/05/16 21:00 70 07/05/16 20:59 97.6 72 16 143/88 91 07/05/16 20:00 70 07/05/16 19:54 21 07/05/16 19:00 70 07/05/16 18:00 70 07/05/16 17:00 70 07/05/16 16:01 18 07/05/16 16:00 70 07/05/16 16:00 70 07/05/16 16:00 97.7 70 20 139/82 93 07/05/16 15:51 18 07/05/16 14:02 92 07/05/16 14:00 70 07/05/16 13:00 70 07/05/16 12:26 18 07/05/16 12:14 18 07/05/16 12:00 70 07/05/16 11:00 97.6 70 20 128/78 94 07/05/16 11:00 70 07/05/16 10:00 70 07/05/16 09:20 18 07/05/16 09:00 70 I/O 07/05/16 07/05/16 07/05/16 07/06/16 07/06/16 07/06/16 07:00 15:00 23:00 07:00 15:00 23:00 Intake Total 680 ml 820 ml 480 ml Output Total 480 ml 1100 ml 970 ml Balance 200 ml -280 ml -490 ml Intake Oral 680 ml 820 ml 480 ml Output Urine Total 480 ml 1100 ml 970 ml # Bowel Movements 1 0 Physical Exam GENERAL: Well-nourished, well-developed patient. SKIN: Warm and dry. HEAD: Normocephalic. EYES: No scleral icterus. No injection or drainage. NECK: Supple, trachea midline. No JVD or lymphadenopathy. CARDIOVASCULAR: Regular rate and rhythm without murmurs, gallops, or rubs. RESPIRATORY: Breath sounds equal bilaterally. No accessory muscle use. GASTROINTESTINAL: Abdomen soft, non-tender, nondistended. EXTREMITIES: No cyanosis, +1 edema. Right >Left NEUROLOGICAL: Awake, alert, and oriented x 3. Non-focal. Laboratory Laboratory Tests Test 07/06/16 05:06 Sodium Level 141 MEQ/L Potassium Level 4.4 MEQ/L Chloride Level 108 MEQ/L Carbon Dioxide Level 25.8 MEQ/L Anion Gap 7 MEQ/L Blood Urea Nitrogen 16 MG/DL Creatinine 1.16 MG/DL Estimat Glomerular Filtration 63 ML/MIN Rate Random Glucose 157 MG/DL Calcium Level 8.3 MG/DL Imaging Last Impressions CT Angiography 07/04/16 1344 Signed Impressions: Service Date/Time: Monday, July 04, 2016 14:49 - CONCLUSION: 1. No pulmonary embolus identified. 2. Bilateral effusions, cardiomegaly and diffuse interstitial prominence consistent with congestive failure Job Walters MD Chest X-Ray 07/04/16 1159 Signed Impressions: Service Date/Time: Monday, July 04, 2016 12:13 - CONCLUSION: 1. Increasing effusion suggesting congestive failure. Job Walters MD Lower Extremity Ultrasound 07/04/16 0000 Signed Impressions: Service Date/Time: Monday, July 04, 2016 18:36 - CONCLUSION: No DVT. Florencio Jules MD (Asher Meade MD) Assessment and Plan Problem List: (1) Coronary artery disease Assessment and Plan: Cont IV diuresis Medical management for CAD Wound care Encourage incentive spirometry Encourage ambulation (2) Chronic systolic heart failure (3) Dyslipidemia (4) Hypertension (5) Peripheral neuropathy (6) Diabetes mellitus (7) Peripheral vascular disease (8) Lower extremity edema (9) Pressure ulcer of right heel, unstageable (Asher Meade MD) Asher Meade MD Jul 06, 2016 08:32 Jesica Henderson MD Jul 06, 2016 13:06
[2016-07-06] MEDS: LISINOPRIL 5 MG TAB PO SCH (08:55)
[2016-07-06] MEDS: ASPIRIN EC 81 MG TABEC PO SCH (08:55)
[2016-07-06] MEDS: BUMETANIDE INJ 1 MG/4 ML VIAL IV PUSH SCH ×2 (08:55→17:55)
[2016-07-06] MEDS: SODIUM CHLORIDE 0.9% FLUSH 10 ML FLUSH IV FLUSH SCH ×2 (08:55→20:24)
[2016-07-06] MEDS: MULTIVITAMINS/MINERALS THERAPEUTIC TAB PO SCH (08:55)
[2016-07-06] MEDS: PREGABALIN 75 MG CAP PO SCH ×2 (08:56→20:24)
[2016-07-06] MEDS: PANTOPRAZOLE SOD 20 MG DELAYED RELEASE TAB PO SCH (08:56)
[2016-07-06] MEDS: amLODIPine BESYLATE 5 MG TAB PO SCH (08:56)
[2016-07-06] MEDS: POTASSIUM CHLORIDE 20 MEQ CONTROLLED RELEASE TAB PO SCH ×2 (08:56→20:23)
[2016-07-06] MEDS: CLOPIDOGREL 75 MG TAB PO SCH (08:56)
[2016-07-06] MEDS: CARVEDILOL 3.125 MG TAB PO SCH ×2 (08:56→20:24)
[2016-07-06] MEDS: AMIODARONE 200 MG TAB PO SCH ×2 (08:56→20:23)
--- NOTE | 2016-07-06 13:09 | HHI.PR ---
Subjective Remarks f/u for CHF exacerbation. patient states SOB improved. He is ambulating more today. Pain better controlled. He asked to keep pain medication how it is now. No events over telemetry. Objective Vitals Vital Signs Date Time Temp Pulse Resp B/P Pulse Ox O2 Delivery O2 Flow Rate FiO2 07/06/16 12:00 70 07/06/16 11:50 18 07/06/16 11:00 70 07/06/16 11:00 97.5 70 20 125/78 94 07/06/16 10:09 18 07/06/16 10:00 70 07/06/16 09:19 18 07/06/16 09:00 70 07/06/16 08:00 98.0 69 20 152/89 92 07/06/16 08:00 70 07/06/16 07:00 70 07/06/16 06:00 70 07/06/16 05:00 70 07/06/16 04:21 98.6 71 16 144/83 91 07/06/16 04:00 70 07/06/16 03:00 70 07/06/16 02:00 70 07/06/16 01:00 70 07/06/16 00:22 98.1 70 16 143/83 94 07/06/16 00:00 70 07/05/16 23:00 70 07/05/16 22:00 70 07/05/16 21:00 70 07/05/16 20:59 97.6 72 16 143/88 91 07/05/16 20:00 70 07/05/16 19:54 21 07/05/16 19:00 70 07/05/16 18:00 70 07/05/16 17:00 70 07/05/16 16:00 70 07/05/16 16:00 70 07/05/16 16:00 97.7 70 20 139/82 93 07/05/16 14:02 92 07/05/16 14:00 70 I/O 07/05/16 07/05/16 07/05/16 07/06/16 07/06/16 07/06/16 07:00 15:00 23:00 07:00 15:00 23:00 Intake Total 680 ml 820 ml 480 ml Output Total 480 ml 1100 ml 970 ml Balance 200 ml -280 ml -490 ml Intake Oral 680 ml 820 ml 480 ml Output Urine Total 480 ml 1100 ml 970 ml # Bowel Movements 1 0 Result Diagram: 07/05/16 0359 07/06/16 0506 Objective Remarks GENERAL:in NAD CARDIOVASCULAR: Regular rate and rhythm without murmurs, gallops, or rubs. RESPIRATORY: Bilateral basilar crackles. GASTROINTESTINAL: Abdomen soft, non-tender, nondistended. MUSCULOSKELETAL: Right leg trace to +1 pitting edema improving. Left leg trace pitting edema. BACK: Nontender without obvious deformity. No CVA tenderness. Medications and IVs Current Medications Sodium Chloride (NS Flush) 2 ml UNSCH PRN IVF FLUSH AFTER USING IV ACCESS Last administered on 07/04/16 15:40; Start 07/04/16 at 12:00 Ondansetron HCl (Zofran Inj) 4 mg ONCE ONCE IVP Last administered on 07/04/16 12:40; Start 07/04/16 at 12:15; Stop 07/04/16 at 12:16; Status DC Hydromorphone HCl (Dilaudid Pf Inj) 1 mg ONCE ONCE IVS Last administered on 12:41; Start 07/04/16 at 12:15; Stop 07/04/16 at 12:16; Status DC Bumetanide (Bumex Inj) 1 mg ONCE ONCE IV PUSH Last administered on 07/04/16 15 :39; Start 07/04/16 at 14:45; Stop 07/04/16 at 14:46; Status DC Iohexol (Omnipaque 350 Inj) 73 ml STK-MED ONCE IV Last administered on 15:00; Start 07/04/16 at 15:00; Stop 07/04/16 at 15:01; Status DC Hydromorphone HCl (Dilaudid Pf Inj) 1 mg ONCE ONCE IVS Last administered on 15:39; Start 07/04/16 at 15:30; Stop 07/04/16 at 15:31; Status DC Amiodarone HCl (Cordarone) 200 mg BID PO Last administered on 07/06/16 08:56; Start 07/04/16 at 21:00 Amlodipine Besylate (Norvasc) 2.5 mg DAILY PO Last administered on 07/06/16 08: 56; Start 07/05/16 at 09:00 Aspirin (Ecotrin Ec) 81 mg DAILY PO Last administered on 07/06/16 08:55; Start 07/05/16 at 09:00 Atorvastatin Calcium (Lipitor) 80 mg HS PO Last administered on 07/05/16 20:39 ; Start 07/04/16 at 21:00 Carvedilol (Coreg) 3.125 mg Q12HR PO Last administered on 07/06/16 08:56; Start 07/04/16 at 21:00 Insulin Detemir (Levemir Inj) 85 units HS SQ ; Start 07/04/16 at 21:00 Multivitamins/ Minerals Therapeutic (Theragran M Tab) 1 tab DAILY PO Last administered on 07/06/16 08:55; Start 07/05/16 at 09:00 Oxycodone/ Acetaminophen (Percocet 5-325 Mg) 1 tab Q4H PRN PO pain 1-10 Last administered on 07/05/16 10:52; Start 07/04/16 at 17:45; Stop 07/05/16 at 13:50; Status DC Potassium Chloride (KCl) 20 meq BID PO Last administered on 07/06/16 08:56; Start 07/04/16 at 21:00 Pregabalin (Lyrica) 75 mg BID PO Last administered on 07/06/16 08:56; Start 07/04/16 at 21:00 Pantoprazole Sodium (Protonix) 20 mg DAILY PO Last administered on 07/06/16 08: 56; Start 07/05/16 at 09:00 Sodium Chloride (NS Flush) 2 ml UNSCH PRN IV FLUSH FLUSH AFTER USING IV ACCESS ; Start 07/04/16 at 17:45 Sodium Chloride (NS Flush) 2 ml BID IV FLUSH Last administered on 07/06/16 08: 55; Start 07/04/16 at 21:00 Ondansetron HCl (Zofran Inj) 4 mg Q6H PRN IVP NAUSEA OR VOMITING; Start at 17:45 Enoxaparin Sodium (Lovenox Inj) 40 mg Q24H SQ Last administered on 07/05/16 20: 40; Start 07/04/16 at 20:00 Naloxone HCl (Narcan Inj) 0.4 mg UNSCH PRN IV SEE LABEL COMMENTS; Start at 17:45 Bumetanide (Bumex Inj) 1 mg BID@,18 IV PUSH Last administered on 07/06/16 08: 55; Start 07/04/16 at 18:00 Morphine Sulfate (Morphine Inj) 1 mg Q3H PRN IV PUSH pain 5-10 Last administered on 07/05/16 12:23; Start 07/04/16 at 18:00; Stop 07/05/16 at 13:50; Status DC Dextrose (D50w (Vial) Inj) 25 ml UNSCH PRN IV PUSH HYPOGLYCEMIA-SEE COMMENTS; Start 07/04/16 at 18:15 Glucagon (Glucagon Inj) 1 mg UNSCH PRN OTHER HYPOGLYCEMIA-SEE COMMENTS; Start 07/04/16 at 18:15 Insulin Aspart (NovoLOG SUPPLEMENTAL SCALE) 1 ACHS SLIDING SCALE SQ Last administered on 07/06/16 11:00; Start 07/04/16 at 21:00 Lisinopril (Prinivil) 2.5 mg DAILY PO Last administered on 07/06/16 08:55; Start 07/06/16 at 09:00 Miscellaneous (Pill Splitter) 1 ea UNSCH PRN OTHER SEE LABEL COMMENTS; Start at 10:30 Clopidogrel Bisulfate (Plavix) 75 mg DAILY PO Last administered on 07/06/16 08: 56; Start 07/06/16 at 09:00 Morphine Sulfate (Morphine Inj) 2 mg Q3H PRN IV PUSH SEE LABEL COMMENTS Last administered on 07/06/16 08:57; Start 07/05/16 at 15:00 Oxycodone HCl (Roxicodone) 15 mg Q4H PRN PO SEE LABEL COMMENTS Last administered on 07/06/16 10:46; Start 07/05/16 at 14:00 A/P Assessment and Plan 65-year-old male with a recent admission due to inferior STEMI status post stent placement and CABG with also history of chronic systolic heart failure with EF 25-30% who presented with shortness of breathing and bilateral lower extremity edema Acute on chronic systolic heart failure with EF 25-30% status post dual chamber defibrillator -Chest x-ray suggests CHF. Due to elevated d-dimer CTA was done which also suggest congestive heart failure. -Patient on home Bumex 1 mg by mouth daily. -Currently giving Bumex 1 mg IV twice a day. 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 -2 L fluid restriction. -Strict ins and outs. -Continue to monitor patient clinically. Bilateral lower extremity edema -Most likely secondary to CHF exacerbation. -Ultrasound was negative for any DVT. Severe coronary artery disease three-vessel disease LAD, circumflex, stented RCA status post CABG on 06/18 -Continue home medication. Peripheral vascular disease - history of right femoropopliteal with in situ saphenous vein grafting with thrombectomy of popliteal artery/anterior posterior tibial arteries [address] Mayes/Hypertension/Dyslipidemia/GERD/ gastroparesis/history of V. tach -Continue home medication. -Patient stated that his peripheral neuropathy pain has worsened due to the edema and asking to increase pain meds. on oxycodone 15 mg 3 times a day when necessary for pain. on morphine if oral does not work to 2 mg IV. Type 2 diabetes insulin-dependent complicated by peripheral neuropathy -continue home medication. -on SSI Chronic kidney disease -Improved. -Continue to monitor. -Avoid nephrotoxins. infrarenal abdominal aortic aneurysm- -f/u as outpatient- patient is already aware. DVT prophylaxis -Lovenox Discharge Planning Patient requires to be on IV Bumex. Jesica Henderson MD Jul 06, 2016 13:09
[2016-07-06] MEDS: ATORVASTATIN 80 MG TAB PO SCH (20:23)
[2016-07-06] MEDS: ENOXAPARIN SODIUM 40 MG/0.4 ML SYRINGE SQ SCH (20:24)
[2016-07-06] MEDS: INSULIN DETEMIR 100 UNITS/ML VIAL SQ SCH (21:00)
[2016-07-07] VITALS (26 sets, daily range): BP systolic 123–156; BP diastolic 67–88; PULSE 69–73; RESP 16–18; TEMP 97.5–98.4; O2SAT 92–97
[2016-07-07] MEDS: MORPHINE SULFATE 4 MG/ML INJ IV PUSH PRN ×8 (00:18→23:43)
[2016-07-07 06:18] LABS: MEAN CELL VOLUME 86.7 FL (80.0-100.0); MEAN CORPUSCULAR HEMOGLOBIN 29.7 PG (27.0-34.0); MEAN CORPUSCULAR HGB CONC 34.3 % (32.0-36.0); PLATELET COUNT 330 TH/MM3 (150-450); RED BLOOD COUNT 3.46 MIL/MM3 (4.50-5.90); RED CELL DISTRIBUTION WIDTH 16.2 % (11.6-17.2); REVIEW FLAG FINAL; WHITE BLOOD COUNT 7.4 TH/MM3 (4.0-11.0)
[2016-07-07 06:36] LABS: BICARBONATE 28.6 MEQ/L (21.0-32.0); POTASSIUM 4.6 MEQ/L (3.5-5.1)
[2016-07-07] MEDS: INSULIN ASPART SUPPLEMENTAL SCALE SQ SCH ×4 (07:00→20:36)
--- NOTE | 2016-07-07 07:46 | RADRPT ---
EXAM DATE/TIME: 07/06/2016 21:01 [facility] COMPARISON: No previous studies available for comparison. INDICATIONS : Right leg pain. MEDICAL HISTORY : Myocardial infarction. Peripheral Neuropathy. Peripheral vascular disease. Afib. Diabetes. SURGICAL HISTORY : Coronary artery stent. Appendectomy. Pacemaker. CABG. Right leg arterial bypass. ENCOUNTER: Subsequent ACUITY: > 1 year PAIN SCORE: 6/10 LOCATION: Right leg. PEAK SYSTOLIC VELOCITIES (cm/sec): EXTERNAL ILIAC ARTERY: Right: 120 SENIOR SYSTEMS PROGRAMMER: Right: 97 SUPERFICIAL FEMORAL ARTERY PROXIMAL: Right: No flow visualized. SUPERFICIAL FEMORAL ARTERY MID: Right: No flow visualized. SUPERFICIAL FEMORAL ARTERY DISTAL: Right: No flow visualized. PROFUNDA FEMORAL ARTERY: Right:101 POPLITEAL ARTERY: Right:43 PERONEAL ARTERY: Right:48 POSTERIOR TIBIAL ARTERY: Right:17 ANTERIOR TIBIAL ARTERY: Right:16 FINDINGS: Inflow is intact. Superficial femoral artery is occluded. Bypass is occluded. Deep femoral artery bra nches are patent. Flow reconstitutes in distal SFA which appears diseased. Tibial runoff appears inta ct CONCLUSION: SFA occlusion and occlusion of femoropopliteal bypass. Florencio Gomez MD on July 07, 2016 at 7:40 Board Certified Radiologist. This report was verified electronically.
[2016-07-07] MEDS: BUMETANIDE INJ 1 MG/4 ML VIAL IV PUSH SCH ×2 (08:43→18:30)
[2016-07-07] MEDS: CARVEDILOL 3.125 MG TAB PO SCH ×2 (08:43→20:33)
[2016-07-07] MEDS: PREGABALIN 75 MG CAP PO SCH ×2 (08:43→20:34)
[2016-07-07] MEDS: LISINOPRIL 5 MG TAB PO SCH (08:43)
[2016-07-07] MEDS: PANTOPRAZOLE SOD 20 MG DELAYED RELEASE TAB PO SCH (08:44)
[2016-07-07] MEDS: POTASSIUM CHLORIDE 20 MEQ CONTROLLED RELEASE TAB PO SCH ×2 (08:44→20:34)
[2016-07-07] MEDS: amLODIPine BESYLATE 5 MG TAB PO SCH (08:44)
[2016-07-07] MEDS: AMIODARONE 200 MG TAB PO SCH ×2 (08:44→20:34)
[2016-07-07] MEDS: MULTIVITAMINS/MINERALS THERAPEUTIC TAB PO SCH (08:44)
[2016-07-07] MEDS: CLOPIDOGREL 75 MG TAB PO SCH (08:44)
[2016-07-07] MEDS: ASPIRIN EC 81 MG TABEC PO SCH (08:44)
[2016-07-07] MEDS: SODIUM CHLORIDE 0.9% FLUSH 10 ML FLUSH IV FLUSH SCH ×2 (08:49→20:35)
--- NOTE | 2016-07-07 14:26 | HHI.PR ---
Subjective Remarks f/u for CHF patient stated he feels better but SOB with exertion. Denied any cough. LE swelling improving. no acute events. Objective Vitals Vital Signs Date Time Temp Pulse Resp B/P Pulse Ox O2 Delivery O2 Flow Rate FiO2 07/07/16 10:36 92 21 07/07/16 08:26 95 Room Air 07/07/16 08:26 97.9 70 18 139/88 95 07/07/16 06:00 70 07/07/16 05:00 70 07/07/16 04:46 98.1 70 16 144/73 92 07/07/16 04:00 70 07/07/16 03:00 70 07/07/16 02:00 70 07/07/16 01:26 98.1 71 16 140/79 92 07/07/16 01:00 70 07/07/16 00:00 70 07/06/16 23:00 70 07/06/16 22:00 70 07/06/16 21:45 21 07/06/16 21:00 70 07/06/16 20:48 97.7 70 16 139/85 93 07/06/16 20:00 70 07/06/16 19:00 70 07/06/16 18:02 20 07/06/16 18:00 70 07/06/16 17:34 18 07/06/16 17:00 70 07/06/16 16:00 70 07/06/16 15:00 98.0 70 20 147/85 94 07/06/16 15:00 70 I/O 07/06/16 07/06/16 07/06/16 07/07/16 07/07/16 07/07/16 07:00 15:00 23:00 07:00 15:00 23:00 Intake Total 480 ml 980 ml 650 ml Output Total 970 ml 1250 ml 1675 ml Balance -490 ml -270 ml -1025 ml Intake Oral 480 ml 980 ml 650 ml IV Total 0 ml Output Urine Total 970 ml 1250 ml 1675 ml Stool Total 0 ml # Bowel Movements 0 1 Result Diagram: 07/07/16 0558 07/07/1658 Objective Remarks GENERAL:in NAD CARDIOVASCULAR: Regular rate and rhythm without murmurs, gallops, or rubs. RESPIRATORY: Bilateral basilar crackles. GASTROINTESTINAL: Abdomen soft, non-tender, nondistended. MUSCULOSKELETAL: Right leg trace pitting edema. Left leg trace pitting edema. BACK: Nontender without obvious deformity. No CVA tenderness. Medications and IVs Current Medications Sodium Chloride (NS Flush) 2 ml UNSCH PRN IVF FLUSH AFTER USING IV ACCESS Last administered on 07/04/16 15:40; Start 07/04/16 at 12:00 Ondansetron HCl (Zofran Inj) 4 mg ONCE ONCE IVP Last administered on 07/04/16 12:40; Start 07/04/16 at 12:15; Stop 07/04/16 at 12:16; Status DC Hydromorphone HCl (Dilaudid Pf Inj) 1 mg ONCE ONCE IVS Last administered on 12:41; Start 07/04/16 at 12:15; Stop 07/04/16 at 12:16; Status DC Bumetanide (Bumex Inj) 1 mg ONCE ONCE IV PUSH Last administered on 07/04/16 15 :39; Start 07/04/16 at 14:45; Stop 07/04/16 at 14:46; Status DC Iohexol (Omnipaque 350 Inj) 73 ml STK-MED ONCE IV Last administered on 15:00; Start 07/04/16 at 15:00; Stop 07/04/16 at 15:01; Status DC Hydromorphone HCl (Dilaudid Pf Inj) 1 mg ONCE ONCE IVS Last administered on 15:39; Start 07/04/16 at 15:30; Stop 07/04/16 at 15:31; Status DC Amiodarone HCl (Cordarone) 200 mg BID PO Last administered on 07/07/16 08:44; Start 07/04/16 at 21:00 Amlodipine Besylate (Norvasc) 2.5 mg DAILY PO Last administered on 07/07/16 08 :44; Start 07/05/16 at 09:00 Aspirin (Ecotrin Ec) 81 mg DAILY PO Last administered on 07/07/16 08:44; Start 07/05/16 at 09:00 Atorvastatin Calcium (Lipitor) 80 mg HS PO Last administered on 07/06/16 20:23 ; Start 07/04/16 at 21:00 Carvedilol (Coreg) 3.125 mg Q12HR PO Last administered on 07/07/16 08:43; Start 07/04/16 at 21:00 Insulin Detemir (Levemir Inj) 85 units HS SQ ; Start 07/04/16 at 21:00 Multivitamins/ Minerals Therapeutic (Theragran M Tab) 1 tab DAILY PO Last administered on 07/07/16 08:44; Start 07/05/16 at 09:00 Oxycodone/ Acetaminophen (Percocet 5-325 Mg) 1 tab Q4H PRN PO pain 1-10 Last administered on 07/05/16 10:52; Start 07/04/16 at 17:45; Stop 07/05/16 at 13:50; Status DC Potassium Chloride (KCl) 20 meq BID PO Last administered on 07/07/16 08:44; Start 07/04/16 at 21:00 Pregabalin (Lyrica) 75 mg BID PO Last administered on 07/07/16 08:43; Start at 21:00 Pantoprazole Sodium (Protonix) 20 mg DAILY PO Last administered on 07/07/16 08 :44; Start 07/05/16 at 09:00 Sodium Chloride (NS Flush) 2 ml UNSCH PRN IV FLUSH FLUSH AFTER USING IV ACCESS ; Start 07/04/16 at 17:45 Sodium Chloride (NS Flush) 2 ml BID IV FLUSH Last administered on 07/07/16 08: 49; Start 07/04/16 at 21:00 Ondansetron HCl (Zofran Inj) 4 mg Q6H PRN IVP NAUSEA OR VOMITING; Start at 17:45 Enoxaparin Sodium (Lovenox Inj) 40 mg Q24H SQ Last administered on 07/06/16 20: 24; Start 07/04/16 at 20:00 Naloxone HCl (Narcan Inj) 0.4 mg UNSCH PRN IV SEE LABEL COMMENTS; Start at 17:45 Bumetanide (Bumex Inj) 1 mg BID@09,18 IV PUSH Last administered on 07/07/16 08 :43; Start 07/04/16 at 18:00 Morphine Sulfate (Morphine Inj) 1 mg Q3H PRN IV PUSH pain 5-10 Last administered on 07/05/16 12:23; Start 07/04/16 at 18:00; Stop 07/05/16 at 13:50; Status DC Dextrose (D50w (Vial) Inj) 25 ml UNSCH PRN IV PUSH HYPOGLYCEMIA-SEE COMMENTS; Start 07/04/16 at 18:15 Glucagon (Glucagon Inj) 1 mg UNSCH PRN OTHER HYPOGLYCEMIA-SEE COMMENTS; Start 07/04/16 at 18:15 Insulin Aspart (NovoLOG SUPPLEMENTAL SCALE) 1 ACHS SLIDING SCALE SQ Last administered on 07/07/16 11:02; Start 07/04/16 at 21:00 Lisinopril (Prinivil) 2.5 mg DAILY PO Last administered on 07/07/16 08:43; Start 07/06/16 at 09:00 Miscellaneous (Pill Splitter) 1 ea UNSCH PRN OTHER SEE LABEL COMMENTS; Start at 10:30 Clopidogrel Bisulfate (Plavix) 75 mg DAILY PO Last administered on 07/07/16 08 :44; Start 07/06/16 at 09:00 Morphine Sulfate (Morphine Inj) 2 mg Q3H PRN IV PUSH SEE LABEL COMMENTS Last administered on 07/07/16 09:27; Start 07/05/16 at 15:00 Oxycodone HCl (Roxicodone) 15 mg Q4H PRN PO SEE LABEL COMMENTS Last administered on 07/07/16 10:47; Start 07/05/16 at 14:00 A/P Assessment and Plan 65-year-old male with a recent admission due to inferior STEMI status post stent placement and CABG with also history of chronic systolic heart failure with EF 25-30% who presented with shortness of breathing and bilateral lower extremity edema Acute on chronic systolic heart failure with EF 25-30% status post dual chamber defibrillator -Chest x-ray suggests CHF. Due to elevated d-dimer CTA was done which also suggest congestive heart failure. -Patient on home Bumex 1 mg by mouth daily. -Currently giving Bumex 1 mg IV twice a day. Per Md Urologist continue with IV diuretics. -2 L fluid restriction. -Strict ins and outs. -Continue to monitor patient clinically. Bilateral lower extremity edema -Most likely secondary to CHF exacerbation. -Ultrasound was negative for any DVT. Severe coronary artery disease three-vessel disease LAD, circumflex, stented RCA status post CABG on 06/18 -Continue home medication. Peripheral vascular disease - history of right femoropopliteal with in situ saphenous vein grafting with thrombectomy of popliteal artery/anterior posterior tibial arteries [address] Mayes/Hypertension/Dyslipidemia/GERD/ gastroparesis/history of V. tach -Continue home medication. -Patient stated that his peripheral neuropathy pain has worsened due to the edema and asking to increase pain meds. on oxycodone 15 mg 3 times a day when necessary for pain. on morphine if oral does not work to 2 mg IV. Type 2 diabetes insulin-dependent complicated by peripheral neuropathy -continue home medication. -on SSI Chronic kidney disease -Improved. -Continue to monitor. -Avoid nephrotoxins. infrarenal abdominal aortic aneurysm- -f/u as outpatient- patient is already aware. DVT prophylaxis -Lovenox Discharge Planning patient on IV bumex per Md Urologist. Need to wean off per Md Urologist pending discharge. Jesica Henderson MD Jul 07, 2016 14:26
[2016-07-07] MEDS: ATORVASTATIN 80 MG TAB PO SCH (20:34)
[2016-07-07] MEDS: ENOXAPARIN SODIUM 40 MG/0.4 ML SYRINGE SQ SCH (20:35)
[2016-07-07] MEDS: INSULIN DETEMIR 100 UNITS/ML VIAL SQ SCH (20:36)
[2016-07-08] VITALS (20 sets, daily range): BP systolic 110–144; BP diastolic 67–87; PULSE 69–70; RESP 18; TEMP 97.7–98.2; O2SAT 93–99
[2016-07-08] MEDS: MORPHINE SULFATE 4 MG/ML INJ IV PUSH PRN ×4 (06:12→18:16)
[2016-07-08] MEDS: INSULIN ASPART SUPPLEMENTAL SCALE SQ SCH ×4 (06:26→20:31)
[2016-07-08] MEDS: AMIODARONE 200 MG TAB PO SCH ×2 (08:20→20:32)
[2016-07-08] MEDS: MULTIVITAMINS/MINERALS THERAPEUTIC TAB PO SCH (08:20)
[2016-07-08] MEDS: PANTOPRAZOLE SOD 20 MG DELAYED RELEASE TAB PO SCH (08:20)
[2016-07-08] MEDS: PREGABALIN 75 MG CAP PO SCH ×2 (08:20→20:32)
[2016-07-08] MEDS: LISINOPRIL 5 MG TAB PO SCH ×2 (08:20→09:00)
[2016-07-08] MEDS: ASPIRIN EC 81 MG TABEC PO SCH (08:21)
[2016-07-08] MEDS: CLOPIDOGREL 75 MG TAB PO SCH (08:21)
[2016-07-08] MEDS: CARVEDILOL 3.125 MG TAB PO SCH ×2 (08:21→20:31)
[2016-07-08] MEDS: amLODIPine BESYLATE 5 MG TAB PO SCH (08:21)
[2016-07-08] MEDS: POTASSIUM CHLORIDE 20 MEQ CONTROLLED RELEASE TAB PO SCH ×2 (08:21→20:32)
[2016-07-08] MEDS: SODIUM CHLORIDE 0.9% FLUSH 10 ML FLUSH IV FLUSH SCH ×2 (08:22→20:33)
[2016-07-08] MEDS: BUMETANIDE INJ 1 MG/4 ML VIAL IV PUSH SCH ×2 (08:22→18:15)
--- NOTE | 2016-07-08 09:05 | PD.CARD.PN ---
Subjective Subjective Remarks no overnight events Objective Medications Current Medications Medications (Trade) Dose Ordered Sig/Lily Route Start Time Stop Time Status Last Admin (NS Flush) 2 ml UNSCH PRN IVF 07/04/16 12:00 07/04/16 15:40 (Cordarone) 200 mg BID PO 07/04/16 21:00 07/08/16 08:20 (Norvasc) 2.5 mg DAILY PO 07/05/16 09:00 07/08/16 08:21 (Ecotrin Ec) 81 mg DAILY PO 07/05/16 09:00 07/08/16 08:21 (Lipitor) 80 mg HS PO 07/04/16 21:00 07/07/16 20:34 (Coreg) 3.125 mg Q12HR PO 07/04/16 21:00 07/08/16 08:21 (Levemir Inj) 85 units HS SQ 07/04/16 21:00 (Theragran M Tab) 1 tab DAILY PO 07/05/16 09:00 07/08/16 08:20 (KCl) 20 meq BID PO 07/04/16 21:00 07/08/16 08:21 (Lyrica) 75 mg BID PO 07/04/16 21:00 07/08/16 08:20 (Protonix) 20 mg DAILY PO 07/05/16 09:00 07/08/16 08:20 (NS Flush) 2 ml UNSCH PRN IV FLUSH 07/04/16 17:45 (NS Flush) 2 ml BID IV FLUSH 07/04/16 21:00 07/08/16 08:22 (Zofran Inj) 4 mg Q6H PRN IVP 07/04/16 17:45 (Lovenox Inj) 40 mg Q24H SQ 07/04/16 20:00 07/07/16 20:35 (Narcan Inj) 0.4 mg UNSCH PRN IV 07/04/16 17:45 (Bumex Inj) 1 mg BID@,18 IV PUSH 07/04/16 18:00 07/08/16 08:22 (D50w (Vial) Inj) 25 ml UNSCH PRN IV PUSH 07/04/16 18:15 (Glucagon Inj) 1 mg UNSCH PRN OTHER 07/04/16 18:15 (Prinivil) 2.5 mg DAILY PO 07/06/16 09:00 07/08/16 08:20 (Pill Splitter) 1 ea UNSCH PRN OTHER 07/05/16 10:30 (Plavix) 75 mg DAILY PO 07/06/16 09:00 07/08/16 08:21 (Morphine Inj) 2 mg Q3H PRN IV PUSH 07/05/16 15:00 07/08/16 06:12 (Roxicodone) 15 mg Q4H PRN PO 07/05/16 14:00 07/08/16 08:21 Vital Signs / I&O Vital Signs Date Time Temp Pulse Resp B/P Pulse Ox O2 Delivery O2 Flow Rate FiO2 07/08/16 08:17 97.8 70 18 131/79 96 07/08/16 08:00 70 07/08/16 07:00 70 07/08/16 06:00 70 07/08/16 04:00 70 07/08/16 04:00 98.0 70 18 121/67 95 07/08/16 02:00 70 07/08/16 00:00 97.7 70 18 144/87 93 07/08/16 00:00 70 07/07/16 22:00 70 07/07/16 20:00 70 07/07/16 20:00 97.5 70 18 156/86 97 07/07/16 17:42 96 21 07/07/16 17:00 70 07/07/16 16:15 97.5 69 18 123/67 96 07/07/16 16:00 70 07/07/16 15:00 70 07/07/16 14:00 70 07/07/16 13:00 70 07/07/16 12:00 70 07/07/16 11:00 70 07/07/16 11:00 98.4 73 18 145/81 95 07/07/16 10:36 92 21 07/07/16 10:00 70 I/O 07/07/16 07/07/16 07/07/16 07/08/16 07/08/16 07/08/16 07:00 15:00 23:00 07:00 15:00 23:00 Intake Total 650 ml 1020 ml 240 ml Output Total 1675 ml 1500 ml 2050 ml Balance -1025 ml -480 ml -1810 ml Intake Oral 650 ml 1020 ml 240 ml IV Total 0 ml 0 ml Output Urine Total 1675 ml 1500 ml 2050 ml Stool Total 0 ml # Bowel Movements 0 0 Physical Exam GENERAL: Well-nourished, well-developed patient. SKIN: Warm and dry. HEAD: Normocephalic. EYES: No scleral icterus. No injection or drainage. NECK: Supple, trachea midline. No JVD or lymphadenopathy. CARDIOVASCULAR: Regular rate and rhythm without murmurs, gallops, or rubs. RESPIRATORY: Breath sounds equal bilaterally. No accessory muscle use. GASTROINTESTINAL: Abdomen soft, non-tender, nondistended. EXTREMITIES: No cyanosis, +1 edema. Right >Left NEUROLOGICAL: Awake, alert, and oriented x 3. Non-focal. Imaging Last Impressions Arterial Ultrasound 07/06/16 0000 Signed Impressions: Service Date/Time: Wednesday, July 06, 2016 21:01 - CONCLUSION: SFA occlusion and occlusion of femoropopliteal bypass. Florencio Gomez MD CT Angiography 07/04/16 1344 Signed Impressions: Service Date/Time: Monday, July 04, 2016 14:49 - CONCLUSION: 1. No pulmonary embolus identified. 2. Bilateral effusions, cardiomegaly and diffuse interstitial prominence consistent with congestive failure Job Walters MD Chest X-Ray 07/04/16 1159 Signed Impressions: Service Date/Time: Monday, July 04, 2016 12:13 - CONCLUSION: 1. Increasing effusion suggesting congestive failure. Job Walters MD Lower Extremity Ultrasound 07/04/16 0000 Signed Impressions: Service Date/Time: Monday, July 04, 2016 18:36 - CONCLUSION: No DVT. Florencio Jules MD Assessment and Plan Problem List: (1) Chronic systolic heart failure Assessment and Plan: Acute on chronic systolic Heart Failure EF 20% s/p CABG and AICD Cont gentle diuresis Increase Lisinopril to 5mg PO daily Cont Coreg, Lipitor, ASA and Plavix If patient continues with SOB Consider IR consult to tap Pleural effusions Strict I&O Daily Weight Encourage incentive spirometry Encourage ambulation (2) Coronary artery disease (3) Dyslipidemia (4) Hypertension (5) Peripheral neuropathy (6) Diabetes mellitus (7) Peripheral vascular disease (8) Lower extremity edema (9) Pressure ulcer of right heel, unstageable Asher Meade MD Jul 08, 2016 09:05
--- NOTE | 2016-07-08 13:06 | HHI.PR ---
Subjective Remarks Follow-up for shortness of breathing. Patient stated that shortness of breathing has improved but periodically he would get shortness of breathing of probably the results on his own. Positive for clear sputum cough. Patient remains afebrile. No other complaints. His mother is at the bedside. Objective Vitals Vital Signs Date Time Temp Pulse Resp B/P Pulse Ox O2 Delivery O2 Flow Rate FiO2 07/08/16 12:00 97.7 70 18 110/67 99 07/08/16 12:00 70 07/08/16 11:00 70 07/08/16 10:00 70 07/08/16 09:00 70 07/08/16 08:17 97.8 70 18 131/79 96 07/08/16 08:00 70 07/08/16 07:00 70 07/08/16 06:00 70 07/08/16 04:00 70 07/08/16 04:00 98.0 70 18 121/67 95 07/08/16 02:00 70 07/08/16 00:00 97.7 70 18 144/87 93 07/08/16 00:00 70 07/07/16 22:00 70 07/07/16 20:00 70 07/07/16 20:00 97.5 70 18 156/86 97 07/07/16 17:42 96 21 07/07/16 17:00 70 07/07/16 16:15 97.5 69 18 123/67 96 07/07/16 16:00 70 07/07/16 15:00 70 07/07/16 14:00 70 I/O 07/07/16 07/07/16 07/07/16 07/08/16 07/08/16 07/08/16 07:00 15:00 23:00 07:00 15:00 23:00 Intake Total 650 ml 1020 ml 240 ml Output Total 1675 ml 1500 ml 2050 ml Balance -1025 ml -480 ml -1810 ml Intake Oral 650 ml 1020 ml 240 ml IV Total 0 ml 0 ml Output Urine Total 1675 ml 1500 ml 2050 ml Stool Total 0 ml # Bowel Movements 0 0 Result Diagram: 07/07/16 0558 07/07/16 0558 Objective Remarks GENERAL:in NAD CARDIOVASCULAR: Regular rate and rhythm without murmurs, gallops, or rubs. RESPIRATORY: Bilateral basilar mild crackles. GASTROINTESTINAL: Abdomen soft, non-tender, nondistended. MUSCULOSKELETAL: Right leg trace pitting edema. Left leg trace pitting edema. BACK: Nontender without obvious deformity. No CVA tenderness. Medications and IVs Current Medications Sodium Chloride (NS Flush) 2 ml UNSCH PRN IVF FLUSH AFTER USING IV ACCESS Last administered on 07/04/16 15:40; Start 07/04/16 at 12:00 Ondansetron HCl (Zofran Inj) 4 mg ONCE ONCE IVP Last administered on 07/04/16 12:40; Start 07/04/16 at 12:15; Stop 07/04/16 at 12:16; Status DC Hydromorphone HCl (Dilaudid Pf Inj) 1 mg ONCE ONCE IVS Last administered on 12:41; Start 07/04/16 at 12:15; Stop 07/04/16 at 12:16; Status DC Bumetanide (Bumex Inj) 1 mg ONCE ONCE IV PUSH Last administered on 07/04/16 15 :39; Start 07/04/16 at 14:45; Stop 07/04/16 at 14:46; Status DC Iohexol (Omnipaque 350 Inj) 73 ml STK-MED ONCE IV Last administered on 15:00; Start 07/04/16 at 15:00; Stop 07/04/16 at 15:01; Status DC Hydromorphone HCl (Dilaudid Pf Inj) 1 mg ONCE ONCE IVS Last administered on 15:39; Start 07/04/16 at 15:30; Stop 07/04/16 at 15:31; Status DC Amiodarone HCl (Cordarone) 200 mg BID PO Last administered on 07/08/16 08:20; Start 07/04/16 at 21:00 Amlodipine Besylate (Norvasc) 2.5 mg DAILY PO Last administered on 07/08/16 08 :21; Start 07/05/16 at 09:00 Aspirin (Ecotrin Ec) 81 mg DAILY PO Last administered on 07/08/16 08:21; Start 07/05/16 at 09:00 Atorvastatin Calcium (Lipitor) 80 mg HS PO Last administered on 07/07/16 20:34 ; Start 07/04/16 at 21:00 Carvedilol (Coreg) 3.125 mg Q12HR PO Last administered on 07/08/16 08:21; Start 07/04/16 at 21:00 Insulin Detemir (Levemir Inj) 85 units HS SQ ; Start 07/04/16 at 21:00 Multivitamins/ Minerals Therapeutic (Theragran M Tab) 1 tab DAILY PO Last administered on 07/08/16 08:20; Start 07/05/16 at 09:00 Oxycodone/ Acetaminophen (Percocet 5-325 Mg) 1 tab Q4H PRN PO pain 1-10 Last administered on 07/05/16 10:52; Start 07/04/16 at 17:45; Stop 07/05/16 at 13:50; Status DC Potassium Chloride (KCl) 20 meq BID PO Last administered on 07/08/16 08:21; Start 07/04/16 at 21:00 Pregabalin (Lyrica) 75 mg BID PO Last administered on 07/08/16 08:20; Start at 21:00 Pantoprazole Sodium (Protonix) 20 mg DAILY PO Last administered on 07/08/16 08 :20; Start 07/05/16 at 09:00 Sodium Chloride (NS Flush) 2 ml UNSCH PRN IV FLUSH FLUSH AFTER USING IV ACCESS ; Start 07/04/16 at 17:45 Sodium Chloride (NS Flush) 2 ml BID IV FLUSH Last administered on 07/08/16 08: 22; Start 07/04/16 at 21:00 Ondansetron HCl (Zofran Inj) 4 mg Q6H PRN IVP NAUSEA OR VOMITING; Start at 17:45 Enoxaparin Sodium (Lovenox Inj) 40 mg Q24H SQ Last administered on 07/07/16 20 :35; Start 07/04/16 at 20:00 Naloxone HCl (Narcan Inj) 0.4 mg UNSCH PRN IV SEE LABEL COMMENTS; Start at 17:45 Bumetanide (Bumex Inj) 1 mg BID@09,18 IV PUSH Last administered on 07/08/16 08 :22; Start 07/04/16 at 18:00 Morphine Sulfate (Morphine Inj) 1 mg Q3H PRN IV PUSH pain 5-10 Last administered on 07/05/16 12:23; Start 07/04/16 at 18:00; Stop 07/05/16 at 13:50; Status DC Dextrose (D50w (Vial) Inj) 25 ml UNSCH PRN IV PUSH HYPOGLYCEMIA-SEE COMMENTS; Start 07/04/16 at 18:15 Glucagon (Glucagon Inj) 1 mg UNSCH PRN OTHER HYPOGLYCEMIA-SEE COMMENTS; Start 07/04/16 at 18:15 Insulin Aspart (NovoLOG SUPPLEMENTAL SCALE) 1 ACHS SLIDING SCALE SQ Last administered on 07/08/16 12:10; Start 07/04/16 at 21:00 Lisinopril (Prinivil) 2.5 mg DAILY PO Last administered on 07/08/16 08:20; Start 07/06/16 at 09:00; Stop 07/08/16 at 09:14; Status DC Miscellaneous (Pill Splitter) 1 ea UNSCH PRN OTHER SEE LABEL COMMENTS; Start at 10:30 Clopidogrel Bisulfate (Plavix) 75 mg DAILY PO Last administered on 07/08/16 08 :21; Start 07/06/16 at 09:00 Morphine Sulfate (Morphine Inj) 2 mg Q3H PRN IV PUSH SEE LABEL COMMENTS Last administered on 07/08/16 12:11; Start 07/05/16 at 15:00 Oxycodone HCl (Roxicodone) 15 mg Q4H PRN PO SEE LABEL COMMENTS Last administered on 07/08/16 08:21; Start 07/05/16 at 14:00 Lisinopril (Prinivil) 5 mg DAILY PO ; Start 07/08/16 at 09:00 A/P Assessment and Plan 65-year-old male with a recent admission due to inferior STEMI status post stent placement and CABG with also history of chronic systolic heart failure with EF 25-30% who presented with shortness of breathing and bilateral lower extremity edema Acute on chronic systolic heart failure with EF 25-30% status post dual chamber defibrillator -Chest x-ray suggests CHF. Due to elevated d-dimer CTA was done which also suggest congestive heart failure. -Patient on home Bumex 1 mg by mouth daily. -Currently giving Bumex 1 mg IV twice a day. Per Ferris Wheel Operator if patient continues to have shortness of breathing to do a thoracentesis. Patient's SOB is periodic/abrupt which to me seems more like anxiety. His lungs have mild crackles otherwise clear to auscultation. Will first repeat CXR before considering a thoracentesis. -2 L fluid restriction. -Strict ins and outs. -Continue to monitor patient clinically. Bilateral lower extremity edema -Most likely secondary to CHF exacerbation. -Ultrasound was negative for any DVT. Severe coronary artery disease three-vessel disease LAD, circumflex, stented RCA status post CABG on 06/18 -Continue home medication. Peripheral vascular disease - history of right femoropopliteal with in situ saphenous vein grafting with thrombectomy of popliteal artery/anterior posterior tibial arteries [address] Mayes/Hypertension/Dyslipidemia/GERD/ gastroparesis/history of V. tach -Continue home medication. -Patient stated that his peripheral neuropathy pain has worsened due to the edema and asking to increase pain meds. on oxycodone 15 mg 3 times a day when necessary for pain. on morphine if oral does not work to 2 mg IV. Type 2 diabetes insulin-dependent complicated by peripheral neuropathy -continue home medication. -on SSI Chronic kidney disease -Improved. -Continue to monitor. -Avoid nephrotoxins. infrarenal abdominal aortic aneurysm- -f/u as outpatient- patient is already aware. DVT prophylaxis -Lovenox Discharge Planning Ferris Wheel Operator was to continue IV diuretics and consider thoracentesis. I will repeat a chest x-ray to see if this would be beneficial since his lungs are relatively clear. Jesica Henderson MD Jul 08, 2016 13:06
--- NOTE | 2016-07-08 17:26 | RADRPT ---
EXAM DATE/TIME: 07/08/2016 17:11 [facility] COMPARISON: CT PULMONARY ANGIOGRAM, July 04, 2016, 14:49. INDICATIONS : Dyspnea. MEDICAL HISTORY : Diabetes mellitus type I. Neuropathy. SURGICAL HISTORY : CABG. Pacemaker. ENCOUNTER: Initial ACUITY: 2 weeks PAIN SCORE: 0/10 LOCATION: Bilateral chest FINDINGS: There are bilateral pleural effusions left greater than right identified. Cardiomegaly and sternotomy wires. Pacer/ICD device noted. Degenerative changes of the spine. CONCLUSION: Bilateral pleural effusions. Kervin Jacob MD on July 08, 2016 at 17:24 Board Certified Radiologist. This report was verified electronically.
[2016-07-08] MEDS: ATORVASTATIN 80 MG TAB PO SCH (20:32)
[2016-07-08] MEDS: ENOXAPARIN SODIUM 40 MG/0.4 ML SYRINGE SQ SCH (20:32)
[2016-07-08] MEDS: INSULIN DETEMIR 100 UNITS/ML VIAL SQ SCH (20:33)
[2016-07-09] VITALS (26 sets, daily range): BP systolic 108–131; BP diastolic 60–81; PULSE 70; RESP 16–18; TEMP 97.6–98.6; O2SAT 94–97
[2016-07-09] MEDS: MORPHINE SULFATE 4 MG/ML INJ IV PUSH PRN ×5 (06:28→20:55)
[2016-07-09] MEDS: INSULIN ASPART SUPPLEMENTAL SCALE SQ SCH ×4 (06:38→20:54)
[2016-07-09 06:50] LABS: HEMATOCRIT 30.9 % (39.0-51.0); MEAN CELL VOLUME 85.7 FL (80.0-100.0); MEAN CORPUSCULAR HEMOGLOBIN 29.4 PG (27.0-34.0); MEAN CORPUSCULAR HGB CONC 34.3 % (32.0-36.0); PLATELET COUNT 281 TH/MM3 (150-450); RED CELL DISTRIBUTION WIDTH 16.1 % (11.6-17.2); REVIEW FLAG FINAL; WHITE BLOOD COUNT 6.8 TH/MM3 (4.0-11.0)
[2016-07-09 07:03] LABS: BICARBONATE 28.1 MEQ/L (21.0-32.0); POTASSIUM 4.8 MEQ/L (3.5-5.1)
[2016-07-09] MEDS: CLOPIDOGREL 75 MG TAB PO SCH (08:07)
[2016-07-09] MEDS: CARVEDILOL 3.125 MG TAB PO SCH ×2 (08:08→20:52)
[2016-07-09] MEDS: MULTIVITAMINS/MINERALS THERAPEUTIC TAB PO SCH (08:09)
[2016-07-09] MEDS: AMIODARONE 200 MG TAB PO SCH ×2 (08:09→20:52)
[2016-07-09] MEDS: ASPIRIN EC 81 MG TABEC PO SCH (08:10)
[2016-07-09] MEDS: PANTOPRAZOLE SOD 20 MG DELAYED RELEASE TAB PO SCH (08:10)
[2016-07-09] MEDS: PREGABALIN 75 MG CAP PO SCH ×2 (08:10→20:51)
[2016-07-09] MEDS: POTASSIUM CHLORIDE 20 MEQ CONTROLLED RELEASE TAB PO SCH ×2 (08:10→20:52)
[2016-07-09] MEDS: SODIUM CHLORIDE 0.9% FLUSH 10 ML FLUSH IV FLUSH SCH ×2 (08:12→20:53)
[2016-07-09] MEDS: BUMETANIDE INJ 1 MG/4 ML VIAL IV PUSH SCH ×2 (08:12→16:51)
[2016-07-09] MEDS: LISINOPRIL 5 MG TAB PO SCH (08:12)
[2016-07-09] MEDS: amLODIPine BESYLATE 5 MG TAB PO SCH (09:00)
--- NOTE | 2016-07-09 12:52 | HHI.PR ---
Subjective Remarks Follow-up for CHF exacerbation Patient stated shortness of breathing has improved and he has not had any episodes since yesterday shortness of breathing. Patient stated he feels short of breath and not back at his baseline. Patient complaining of worsening of his neuropathy of his right lower extremity. He stated that he is usually on 3 times a dose of Lyrica that we have him on now. He also stated that he'll take about 2 g of gabapentin when his neuropathy is really bad. He is also taking Percocet 10 mg tablets every 4 hours. When I asked patient why he did not give us these dosage on the day of admission he stated he does not know why. He also requests to be on Percocet every 4 hours although he is on oxycodone 15 mg every 4 hours. Objective Vitals Vital Signs Date Time Temp Pulse Resp B/P Pulse Ox O2 Delivery O2 Flow Rate FiO2 07/09/16 12:01 70 07/09/16 11:41 94 21 07/09/16 11:15 98.6 70 16 108/69 97 07/09/16 11:00 70 07/09/16 11:00 16 07/09/16 10:00 70 07/09/16 09:08 18 07/09/16 09:08 18 07/09/16 09:00 70 07/09/16 08:01 98.6 70 16 116/60 97 07/09/16 08:00 70 07/09/16 07:00 70 07/09/16 06:00 70 07/09/16 04:00 97.9 70 18 119/77 96 07/09/16 04:00 70 07/09/16 02:00 70 07/09/16 00:00 98.0 70 18 124/81 95 07/09/16 00:00 70 07/08/16 22:00 70 07/08/16 20:00 70 07/08/16 20:00 98.2 70 18 139/76 99 07/08/16 18:00 70 07/08/16 17:00 70 07/08/16 16:00 70 07/08/16 16:00 97.8 70 18 126/69 96 07/08/16 15:00 69 07/08/16 14:33 97 21 07/08/16 14:00 70 07/08/16 13:00 70 I/O 07/08/16 07/08/16 07/08/16 07/09/16 07/09/16 07/09/16 07:00 15:00 23:00 07:00 15:00 23:00 Intake Total 240 ml 1260 ml 240 ml Output Total 2050 ml 2175 ml 1200 ml Balance -1810 ml -915 ml -960 ml Intake Oral 240 ml 1260 ml 240 ml IV Total 0 ml Output Urine Total 2050 ml 2175 ml 1200 ml # Bowel Movements 0 0 Result Diagram: 07/09/1660407/09/16604 Objective Remarks GENERAL:in NAD CARDIOVASCULAR: Regular rate and rhythm without murmurs, gallops, or rubs. RESPIRATORY: Bilateral basilar mild crackles. GASTROINTESTINAL: Abdomen soft, non-tender, nondistended. MUSCULOSKELETAL: Right leg trace pitting edema. Left leg trace pitting edema. BACK: Nontender without obvious deformity. No CVA tenderness. Medications and IVs Current Medications Sodium Chloride (NS Flush) 2 ml UNSCH PRN IVF FLUSH AFTER USING IV ACCESS Last administered on 07/04/16 15:40; Start 07/04/16 at 12:00 Ondansetron HCl (Zofran Inj) 4 mg ONCE ONCE IVP Last administered on 07/04/16 12:40; Start 07/04/16 at 12:15; Stop 07/04/16 at 12:16; Status DC Hydromorphone HCl (Dilaudid Pf Inj) 1 mg ONCE ONCE IVS Last administered on 12:41; Start 07/04/16 at 12:15; Stop 07/04/16 at 12:16; Status DC Bumetanide (Bumex Inj) 1 mg ONCE ONCE IV PUSH Last administered on 07/04/16 15 :39; Start 07/04/16 at 14:45; Stop 07/04/16 at 14:46; Status DC Iohexol (Omnipaque 350 Inj) 73 ml STK-MED ONCE IV Last administered on 15:00; Start 07/04/16 at 15:00; Stop 07/04/16 at 15:01; Status DC Hydromorphone HCl (Dilaudid Pf Inj) 1 mg ONCE ONCE IVS Last administered on 15:39; Start 07/04/16 at 15:30; Stop 07/04/16 at 15:31; Status DC Amiodarone HCl (Cordarone) 200 mg BID PO Last administered on 07/09/16 08:09; Start 07/04/16 at 21:00 Amlodipine Besylate (Norvasc) 2.5 mg DAILY PO Last administered on 07/08/16 08 :21; Start 07/05/16 at 09:00 Aspirin (Ecotrin Ec) 81 mg DAILY PO Last administered on 07/09/16 08:10; Start 07/05/16 at 09:00 Atorvastatin Calcium (Lipitor) 80 mg HS PO Last administered on 07/08/16 20:32 ; Start 07/04/16 at 21:00 Carvedilol (Coreg) 3.125 mg Q12HR PO Last administered on 07/09/16 08:08; Start 07/04/16 at 21:00 Insulin Detemir (Levemir Inj) 85 units HS SQ ; Start 07/04/16 at 21:00 Multivitamins/ Minerals Therapeutic (Theragran M Tab) 1 tab DAILY PO Last administered on 07/09/16 08:09; Start 07/05/16 at 09:00 Oxycodone/ Acetaminophen (Percocet 5-325 Mg) 1 tab Q4H PRN PO pain 1-10 Last administered on 07/05/16 10:52; Start 07/04/16 at 17:45; Stop 07/05/16 at 13:50; Status DC Potassium Chloride (KCl) 20 meq BID PO Last administered on 07/09/16 08:10; Start 07/04/16 at 21:00 Pregabalin (Lyrica) 75 mg BID PO Last administered on 07/09/16 08:10; Start at 21:00 Pantoprazole Sodium (Protonix) 20 mg DAILY PO Last administered on 07/09/16 08 :10; Start 07/05/16 at 09:00 Sodium Chloride (NS Flush) 2 ml UNSCH PRN IV FLUSH FLUSH AFTER USING IV ACCESS ; Start 07/04/16 at 17:45 Sodium Chloride (NS Flush) 2 ml BID IV FLUSH Last administered on 07/09/16 08: 12; Start 07/04/16 at 21:00 Ondansetron HCl (Zofran Inj) 4 mg Q6H PRN IVP NAUSEA OR VOMITING; Start at 17:45 Enoxaparin Sodium (Lovenox Inj) 40 mg Q24H SQ Last administered on 07/08/16 20 :32; Start 07/04/16 at 20:00 Naloxone HCl (Narcan Inj) 0.4 mg UNSCH PRN IV SEE LABEL COMMENTS; Start at 17:45 Bumetanide (Bumex Inj) 1 mg BID@09,18 IV PUSH Last administered on 07/09/16 08 :12; Start 07/04/16 at 18:00 Morphine Sulfate (Morphine Inj) 1 mg Q3H PRN IV PUSH pain 5-10 Last administered on 07/05/16 12:23; Start 07/04/16 at 18:00; Stop 07/05/16 at 13:50; Status DC Dextrose (D50w (Vial) Inj) 25 ml UNSCH PRN IV PUSH HYPOGLYCEMIA-SEE COMMENTS; Start 07/04/16 at 18:15 Glucagon (Glucagon Inj) 1 mg UNSCH PRN OTHER HYPOGLYCEMIA-SEE COMMENTS; Start 07/04/16 at 18:15 Insulin Aspart (NovoLOG SUPPLEMENTAL SCALE) 1 ACHS SLIDING SCALE SQ Last administered on 07/09/16 11:00; Start 07/04/16 at 21:00 Lisinopril (Prinivil) 2.5 mg DAILY PO Last administered on 07/08/16 08:20; Start 07/06/16 at 09:00; Stop 07/08/16 at 09:14; Status DC Miscellaneous (Pill Splitter) 1 ea UNSCH PRN OTHER SEE LABEL COMMENTS; Start at 10:30 Clopidogrel Bisulfate (Plavix) 75 mg DAILY PO Last administered on 07/09/16 08 :07; Start 07/06/16 at 09:00 Morphine Sulfate (Morphine Inj) 2 mg Q3H PRN IV PUSH SEE LABEL COMMENTS Last administered on 07/09/16 10:51; Start 07/05/16 at 15:00 Oxycodone HCl (Roxicodone) 15 mg Q4H PRN PO SEE LABEL COMMENTS Last administered on 07/09/16 12:15; Start 4/8/17 at 14:00 Lisinopril (Prinivil) 5 mg DAILY PO Last administered on 07/09/16t 08:12; Start 07/08/16 at 09:00 A/P Assessment and Plan 65-year-old male with a recent admission due to inferior STEMI status post stent placement and CABG with also history of chronic systolic heart failure with EF 25-30% who presented with shortness of breathing and bilateral lower extremity edema Acute on chronic systolic heart failure with EF 25-30% status post dual chamber defibrillator -Chest x-ray suggests CHF. Due to elevated d-dimer CTA was done which also suggest congestive heart failure. -Patient on home Bumex 1 mg by mouth daily. -Currently giving Bumex 1 mg IV twice a day but will decrease to 0.5 mg IV twice a day since he is clinically improving, not on oxygen, and is developing renal insufficiency. Per Guide Dog Trainer if patient continues to have shortness of breathing to do a thoracentesis. Shortness of breathing is improving and repeat a chest x-ray showed bilateral pleural effusion more on the left than right. Since patient is clinically improving, I did not recommend thoracentesis but I will leave this up to patient and his certified orthotic fitter. At the moment patient agrees with me. -2 L fluid restriction. -Strict ins and outs. -Continue to monitor patient clinically. Bilateral lower extremity edema -Most likely secondary to CHF exacerbation. -Ultrasound was negative for any DVT. Severe coronary artery disease three-vessel disease LAD, circumflex, stented RCA status post CABG on 06/18 -Continue home medication. Peripheral vascular disease - history of right femoropopliteal with in situ saphenous vein grafting with thrombectomy of popliteal artery/anterior posterior tibial arteries [address] Mayes/Hypertension/Dyslipidemia/GERD/ gastroparesis/history of V. tach -Continue home medication. Peripheral neuropathy -Patient is now telling me that he is on a different dosage of Lyrica and is on gabapentin. He seems to be noncompliant with his regimen and he stated that he manages his neuropathy not his physician. -I will increase his Lyrica dosage and continue with current regimen. -When patient is discharged he can continue with his home regimen. He needs to follow-up with his primary care physician who is managing his chronic pain. Type 2 diabetes insulin-dependent complicated by peripheral neuropathy -continue home medication. -on SSI Acute Chronic kidney disease --Secondary to diuresis. Will decrease dose of Bumex to 0.5 mg IV twice a day pending certified orthotic fitter's recommendation. -Continue to monitor Cr and strict I/O. -Avoid nephrotoxins. infrarenal abdominal aortic aneurysm- -f/u as outpatient- patient is already aware. DVT prophylaxis -Lovenox Discharge Planning Per certified orthotic fitter patient continues to be on IV diuretic. Once off of IV diuretics can be discharged to home. Jesica Henderson MD Jul 09, 2016 12:52
[2016-07-09] MEDS: ATORVASTATIN 80 MG TAB PO SCH (20:51)
[2016-07-09] MEDS: ENOXAPARIN SODIUM 40 MG/0.4 ML SYRINGE SQ SCH (20:53)
[2016-07-09] MEDS: INSULIN DETEMIR 100 UNITS/ML VIAL SQ SCH (20:53)
[2016-07-10] VITALS (26 sets, daily range): BP systolic 105–118; BP diastolic 53–66; PULSE 70; RESP 16–20; TEMP 98.1–98.6; O2SAT 92–100
[2016-07-10] MEDS: INSULIN ASPART SUPPLEMENTAL SCALE SQ SCH ×4 (06:09→22:07)
[2016-07-10 06:13] LABS: HEMATOCRIT 28.7 % (39.0-51.0); MEAN CORPUSCULAR HEMOGLOBIN 29.5 PG (27.0-34.0); MEAN CORPUSCULAR HGB CONC 34.4 % (32.0-36.0); PLATELET COUNT 236 TH/MM3 (150-450); RED BLOOD COUNT 3.34 MIL/MM3 (4.50-5.90); RED CELL DISTRIBUTION WIDTH 15.8 % (11.6-17.2); REVIEW FLAG FINAL; WHITE BLOOD COUNT 6.6 TH/MM3 (4.0-11.0)
--- NOTE | 2016-07-10 07:48 | HHI.PR ---
Subjective Remarks Follow-up for shortness of breath Shortness of breath a lot better but not back to baseline, does not use oxygen at home, has been in room air for the last few days. Urinating well, -2.5 L overnight. No cough, no fever or chills. Still complaining of moderate to severe right lower extremity pain with erythema of the right lower extremities, erythema is baseline, lower extremity edema is better.. Objective Vitals Vital Signs Date Time Temp Pulse Resp B/P Pulse Ox O2 Delivery O2 Flow Rate FiO2 07/10/16 06:23 70 07/10/16 05:08 70 07/10/16 04:43 70 07/10/16 03:00 70 07/10/16 03:00 98.4 70 105/64 92 07/10/16 02:00 70 07/10/16 01:00 70 07/10/16 00:47 98.1 70 114/62 95 07/10/16 00:00 70 07/09/16 23:00 70 07/09/16 22:58 95 21 07/09/16 22:00 70 07/09/16 21:00 70 07/09/16 20:00 70 07/09/16 19:00 70 07/09/16 19:00 98.0 70 131/69 97 07/09/16 18:00 70 07/09/16 17:00 70 07/09/16 16:00 70 07/09/16 15:30 16 07/09/16 15:15 97.6 70 16 113/64 97 07/09/16 15:01 70 07/09/16 14:00 70 07/09/16 13:15 18 07/09/16 13:00 70 07/09/16 12:01 70 07/09/16 11:41 94 21 07/09/16 11:15 98.6 70 16 108/69 97 07/09/16 11:00 70 07/09/16 10:00 70 07/09/16 09:08 18 07/09/16 09:00 70 07/09/16 08:01 98.6 70 16 116/60 97 07/09/16 08:00 70 I/O 4/12/17 4/12/17 4/12/17 4/13/17 4/13/17 4/13/17 07:00 15:00 23:00 07:00 15:00 23:00 Intake Total 240 ml 570 ml 480 ml Output Total 1200 ml 1300 ml 2275 ml Balance -960 ml -730 ml -1795 ml Intake Oral 240 ml 570 ml 480 ml Output Urine Total 1200 ml 1300 ml 2275 ml # Voids 4 # Bowel Movements 0 0 Result Diagram: 07/10/16 0549 07/09/16 0605 Imaging Last Impressions Chest X-Ray 07/08/16 0000 Signed Impressions: Service Date/Time: Friday, July 08, 2016 17:11 - CONCLUSION: Bilateral pleural effusions. Kervin Jacob MD Arterial Ultrasound 07/06/16 0000 Signed Impressions: Service Date/Time: Wednesday, July 06, 2016 21:01 - CONCLUSION: SFA occlusion and occlusion of femoropopliteal bypass. Florencio Gomez MD CT Angiography 07/04/16 1344 Signed Impressions: Service Date/Time: Monday, July 04, 2016 14:49 - CONCLUSION: 1. No pulmonary embolus identified. 2. Bilateral effusions, cardiomegaly and diffuse interstitial prominence consistent with congestive failure Job Walters MD Lower Extremity Ultrasound 07/04/16 0000 Signed Impressions: Service Date/Time: Monday, July 04, 2016 18:36 - CONCLUSION: No DVT. Florencio Jules MD Objective Remarks GENERAL:in NAD CARDIOVASCULAR: Regular rate and rhythm without murmurs, gallops, or rubs. RESPIRATORY: Bilateral basilar mild crackles, decreased breath sounds on the left. GASTROINTESTINAL: Abdomen soft, non-tender, nondistended. MUSCULOSKELETAL: Right leg trace pitting edema. Left leg trace pitting edema. 1+, mild erythema on the right. Fair distal pulses especially on the right BACK: Nontender without obvious deformity. No CVA tenderness. A/P Assessment and Plan 65-year-old male with a recent admission due to inferior STEMI status post stent placement and CABG with also history of chronic systolic heart failure with EF 25-30% who presented with shortness of breathing and bilateral lower extremity edema Acute on chronic systolic heart failure with EF 25-30% status post dual chamber defibrillator -Chest x-ray suggests CHF. Due to elevated d-dimer, CTA was done which also suggest congestive heart failure. Negative for PE. -Patient on Bumex, dose decreased yesterday, creatinine increased yesterday. On room air. Shortness of breathing is improving and repeat a chest x-ray showed bilateral pleural effusion more on the left than right. I don't think he would need thoracentesis. Will discuss with cardiology. Continue fluid restriction, will switch Bumex to oral. Monitor urine output. Follow-up blood work which is pending today. Lisinopril per cardiology Bilateral lower extremity edema -Most likely secondary to CHF exacerbation. -Ultrasound of the right lower extremity was negative for any DVT. Severe coronary artery disease three-vessel disease LAD, circumflex, stented RCA status post CABG on 06/18 -Continue home medication. Peripheral vascular disease - history of right femoropopliteal with in situ saphenous vein grafting with thrombectomy of popliteal artery/anterior posterior tibial arteries [address] Mayes/Hypertension/Dyslipidemia/GERD/ gastroparesis/history of V. tach -Patient still complaining of pain in the right lower extremity, right arterial ultrasound showed SFA occlusion and occlusion of femoropopliteal bypass. Will consult Dr. Mayes. Pain per patient is not similar to his neuropathic pain. He is not on anticoagulation. Continue Plavix and statins Peripheral neuropathy -Continue Lyrica.-When patient is discharged he can continue with his home regimen. He needs to follow-up with his primary care physician who is managing his chronic pain. Type 2 diabetes insulin-dependent complicated by peripheral neuropathy -continue home medication. -on SSI Acute Chronic kidney disease --Secondary to diuresis. She is to be mixed oral. Increased lisinopril per cardiology. Monitor creatinine, recheck tomorrow. -Continue to monitor Cr and strict I/O. -Avoid nephrotoxins. infrarenal abdominal aortic aneurysm- -f/u as outpatient- patient is already aware. DVT prophylaxis -Lovenox Discharge Planning Discharge once cleared by cardiology and vascular surgery. Blaire Justice MD Jul 10, 2016 07:48
[2016-07-10] MEDS: LISINOPRIL 5 MG TAB PO SCH (08:00)
[2016-07-10] MEDS: MULTIVITAMINS/MINERALS THERAPEUTIC TAB PO SCH (08:00)
[2016-07-10] MEDS: POTASSIUM CHLORIDE 20 MEQ CONTROLLED RELEASE TAB PO SCH ×2 (08:00→20:35)
[2016-07-10] MEDS: BUMETANIDE INJ 1 MG/4 ML VIAL IV PUSH SCH (08:00)
[2016-07-10] MEDS: ASPIRIN EC 81 MG TABEC PO SCH (08:00)
[2016-07-10] MEDS: PREGABALIN 75 MG CAP PO SCH ×2 (08:01→20:29)
[2016-07-10] MEDS: SODIUM CHLORIDE 0.9% FLUSH 10 ML FLUSH IV FLUSH SCH ×2 (08:02→20:29)
[2016-07-10] MEDS: PANTOPRAZOLE SOD 20 MG DELAYED RELEASE TAB PO SCH (08:02)
[2016-07-10] MEDS: AMIODARONE 200 MG TAB PO SCH ×2 (08:02→20:28)
[2016-07-10] MEDS: CARVEDILOL 3.125 MG TAB PO SCH ×2 (08:02→20:28)
[2016-07-10] MEDS: amLODIPine BESYLATE 5 MG TAB PO SCH (08:02)
[2016-07-10] MEDS: CLOPIDOGREL 75 MG TAB PO SCH (08:02)
[2016-07-10] MEDS: BUMETANIDE 1 MG TAB PO SCH (09:00)
[2016-07-10] MEDS: MORPHINE SULFATE 4 MG/ML INJ IV PUSH PRN ×3 (09:01→20:28)
[2016-07-10] MEDS: ATORVASTATIN 80 MG TAB PO SCH (20:28)
[2016-07-10] MEDS: ENOXAPARIN SODIUM 40 MG/0.4 ML SYRINGE SQ SCH (20:30)
[2016-07-10] MEDS: INSULIN DETEMIR 100 UNITS/ML VIAL SQ SCH (21:00)
[2016-07-11] VITALS (27 sets, daily range): BP systolic 92–126; BP diastolic 55–78; PULSE 68–94; RESP 16–20; TEMP 97.6–98.2; O2SAT 93–99
[2016-07-11] MEDS: MORPHINE SULFATE 4 MG/ML INJ IV PUSH PRN ×4 (01:26→19:41)
[2016-07-11 06:50] LABS: BICARBONATE 26.6 MEQ/L (21.0-32.0); POTASSIUM 5.2 MEQ/L (3.5-5.1)
[2016-07-11] MEDS: INSULIN ASPART SUPPLEMENTAL SCALE SQ SCH ×4 (07:00→21:18)
[2016-07-11] MEDS: POTASSIUM CHLORIDE 20 MEQ CONTROLLED RELEASE TAB PO SCH (09:00)
[2016-07-11] MEDS: PANTOPRAZOLE SOD 20 MG DELAYED RELEASE TAB PO SCH (09:22)
[2016-07-11] MEDS: LISINOPRIL 5 MG TAB PO SCH (09:22)
[2016-07-11] MEDS: amLODIPine BESYLATE 5 MG TAB PO SCH (09:22)
[2016-07-11] MEDS: PREGABALIN 75 MG CAP PO SCH ×2 (09:22→21:17)
[2016-07-11] MEDS: MULTIVITAMINS/MINERALS THERAPEUTIC TAB PO SCH (09:22)
[2016-07-11] MEDS: AMIODARONE 200 MG TAB PO SCH ×2 (09:23→21:17)
[2016-07-11] MEDS: CARVEDILOL 3.125 MG TAB PO SCH ×2 (09:23→21:17)
[2016-07-11] MEDS: BUMETANIDE 1 MG TAB PO SCH (09:23)
[2016-07-11] MEDS: ASPIRIN EC 81 MG TABEC PO SCH (09:23)
[2016-07-11] MEDS: CLOPIDOGREL 75 MG TAB PO SCH (09:23)
[2016-07-11] MEDS: SODIUM CHLORIDE 0.9% FLUSH 10 ML FLUSH IV FLUSH SCH ×2 (09:23→21:21)
--- NOTE | 2016-07-11 09:37 | HHI.PR ---
Subjective Remarks Follow-up for shortness of breath Shortness of breath stable, on room air, almost back to baseline. Right lower extremity pain about the same, not similar to his neuropathy, about 7/10, worse with movement, no fever or chills. Objective Vitals Vital Signs Date Time Temp Pulse Resp B/P Pulse Ox O2 Delivery O2 Flow Rate FiO2 07/11/16 07:00 69 07/11/16 06:35 70 07/11/16 05:00 70 07/11/16 04:08 70 07/11/16 03:40 98.0 70 20 104/64 93 07/11/16 03:00 70 07/11/16 02:00 70 07/11/16 01:00 70 07/11/16 00:07 70 07/11/16 00:00 98.2 70 20 92/57 99 07/10/16 23:00 70 07/10/16 22:00 70 07/10/16 21:00 70 07/10/16 20:00 70 07/10/16 20:00 98.2 70 20 113/65 99 07/10/16 19:00 70 07/10/16 18:01 70 07/10/16 17:01 70 07/10/16 16:00 70 07/10/16 15:15 98.3 70 18 112/53 96 07/10/16 15:00 70 07/10/16 14:36 16 07/10/16 12:01 70 07/10/16 11:30 98.3 70 16 118/63 96 07/10/16 11:01 70 07/10/16 10:01 70 I/O 07/10/16 07/10/16 07/10/16 07/11/16 07/11/16 07/11/16 07:00 15:00 23:00 07:00 15:00 23:00 Intake Total 480 ml 882 ml 240 ml Output Total 2275 ml 1275 ml 1150 ml Balance -1795 ml -393 ml -910 ml Intake Oral 480 ml 882 ml 240 ml Output Urine Total 2275 ml 1275 ml 1150 ml # Voids 4 # Bowel Movements 1 Result Diagram: 07/10/16 0549 07/11/16 0556 Objective Remarks GENERAL:in NAD CARDIOVASCULAR: Regular rate and rhythm without murmurs, gallops, or rubs. RESPIRATORY: Bilateral basilar mild crackles, decreased breath sounds on the left. GASTROINTESTINAL: Abdomen soft, non-tender, nondistended. MUSCULOSKELETAL: Right leg trace pitting edema. Left leg trace pitting edema. Mild erythema in the right, poor pulses dorsalis pedis on the right. Not cold and clammy BACK: Nontender without obvious deformity. No CVA tenderness. Alert awake and oriented 3. No focal deficits A/P Assessment and Plan 65-year-old male with a recent admission due to inferior STEMI status post stent placement and CABG with also history of chronic systolic heart failure with EF 25-30% who presented with shortness of breathing and bilateral lower extremity edema Acute on chronic systolic heart failure with EF 25-30% status post dual chamber defibrillator -Chest x-ray suggests CHF. Due to elevated d-dimer, CTA was done which also suggest congestive heart failure. Negative for PE. -Patient on Bumex, dose decreased yesterday, creatinine still higher today. On room air. Shortness of breath better, repeat x-ray better, he would need thoracentesis. Hold Bumex. Monitor urine output. Hold lisinopril. Acute renal failure-likely secondary to overdiuresis, hold lisinopril, Lasix and potassium chloride. Recheck BMP tomorrow. Bilateral lower extremity edema -Most likely secondary to CHF exacerbation. -Ultrasound of the right lower extremity was negative for any DVT. Severe coronary artery disease three-vessel disease LAD, circumflex, stented RCA status post CABG on 06/18 -Continue home medication. Peripheral vascular disease - history of right femoropopliteal with in situ saphenous vein grafting with thrombectomy of popliteal artery/anterior posterior tibial arteries [address] Mayes/Hypertension/Dyslipidemia/GERD/ gastroparesis/history of V. tach.Patient still complaining of pain in the right lower extremity, right arterial ultrasound showed SFA occlusion and occlusion of femoropopliteal bypass. Discussed with Dr. Mayes. Pain per patient is not similar to his neuropathic pain. He is not on anticoagulation. Continue Plavix and statins Peripheral neuropathy -Continue Lyrica.-When patient is discharged he can continue with his home regimen. He needs to follow-up with his primary care physician who is managing his chronic pain. Type 2 diabetes insulin-dependent complicated by peripheral neuropathy -continue home medication. -on SSI infrarenal abdominal aortic aneurysm- -f/u as outpatient- patient is already aware. DVT prophylaxis -Lovenox Discharge Planning Discharge once cleared by cardiology and vascular surgery. Blaire Justice MD Jul 11, 2016 09:37
[2016-07-11] MEDS: INSULIN DETEMIR 100 UNITS/ML VIAL SQ SCH (21:00)
[2016-07-11] MEDS: ATORVASTATIN 80 MG TAB PO SCH (21:17)
[2016-07-11] MEDS: ENOXAPARIN SODIUM 40 MG/0.4 ML SYRINGE SQ SCH (21:18)
[2016-07-12] VITALS (28 sets, daily range): BP systolic 105–131; BP diastolic 67–81; PULSE 69–70; RESP 16–18; TEMP 97.8–98.6; O2SAT 94–98
[2016-07-12] MEDS: MORPHINE SULFATE 4 MG/ML INJ IV PUSH PRN ×6 (00:54→23:39)
[2016-07-12] MEDS: INSULIN ASPART SUPPLEMENTAL SCALE SQ SCH ×4 (06:15→21:00)
[2016-07-12 07:01] LABS: BICARBONATE 28.4 MEQ/L (21.0-32.0); POTASSIUM 5.4 MEQ/L (3.5-5.1)
[2016-07-12] MEDS: PREGABALIN 75 MG CAP PO SCH ×2 (08:26→21:09)
[2016-07-12] MEDS: PANTOPRAZOLE SOD 20 MG DELAYED RELEASE TAB PO SCH (08:26)
[2016-07-12] MEDS: MULTIVITAMINS/MINERALS THERAPEUTIC TAB PO SCH (08:26)
[2016-07-12] MEDS: ASPIRIN EC 81 MG TABEC PO SCH (08:26)
[2016-07-12] MEDS: AMIODARONE 200 MG TAB PO SCH ×2 (08:26→21:09)
[2016-07-12] MEDS: amLODIPine BESYLATE 5 MG TAB PO SCH (08:26)
[2016-07-12] MEDS: SODIUM CHLORIDE 0.9% FLUSH 10 ML FLUSH IV FLUSH SCH ×2 (08:27→21:10)
[2016-07-12] MEDS: CLOPIDOGREL 75 MG TAB PO SCH (08:27)
[2016-07-12] MEDS: CARVEDILOL 3.125 MG TAB PO SCH ×2 (08:27→21:09)
[2016-07-12] MEDS ORDERED: SODIUM POLYSTYRENE SULFONATE SUSP 15 GM/60 ML CUP PO ONE (09:00)
--- NOTE | 2016-07-12 10:08 | HHI.PR ---
Subjective Remarks Follow-up right lower lobe pain and shortness of breath Shortness of breath better, on room air, creatinine worsening. Right lower leg pain, worsening, 10 over 10. Still with erythema, mild. No chest pain. Afebrile Objective Vitals Vital Signs Date Time Temp Pulse Resp B/P Pulse Ox O2 Delivery O2 Flow Rate FiO2 07/12/16 06:00 70 07/12/16 05:14 70 16 105/67 95 07/12/16 05:00 70 07/12/16 04:00 70 07/12/16 03:00 70 07/12/16 02:00 70 07/12/16 01:00 70 07/12/16 00:00 70 07/11/16 23:30 71 16 102/59 95 07/11/16 23:30 70 07/11/16 22:00 70 07/11/16 21:00 70 07/11/16 20:00 70 07/11/16 19:30 97.6 94 16 126/78 98 07/11/16 19:00 70 07/11/16 18:00 70 07/11/16 17:00 70 07/11/16 16:58 16 07/11/16 16:20 98.0 70 18 95/55 97 07/11/16 16:20 70 07/11/16 15:10 70 07/11/16 14:19 70 07/11/16 13:22 70 07/11/16 12:00 70 07/11/16 11:47 18 07/11/16 11:00 70 07/11/16 11:00 97.9 70 20 105/66 96 I/O 07/11/16 07/11/16 07/11/16 07/12/16 07/12/16 07/12/16 07:00 15:00 23:00 07:00 15:00 23:00 Intake Total 240 ml 350 ml Output Total 1150 ml 2100 ml Balance -910 ml -1750 ml Intake Oral 240 ml 350 ml Output Urine Total 1150 ml 2100 ml # Bowel Movements 0 Result Diagram: 07/10/16 0549 07/12/16 0542 Objective Remarks GENERAL: Not in distress. CARDIOVASCULAR: Regular rate and rhythm without murmurs, gallops, or rubs. RESPIRATORY: Bilateral basilar mild crackles, decreased breath sounds on the left. GASTROINTESTINAL: Abdomen soft, non-tender, nondistended. MUSCULOSKELETAL: Right leg trace pitting edema. Left leg trace pitting edema. Mild erythema in the right, poor pulses dorsalis pedis on the right. Not cold and clammy BACK: Nontender without obvious deformity. No CVA tenderness. Alert awake and oriented 3. No focal deficits A/P Assessment and Plan 65-year-old male with a recent admission due to inferior STEMI status post stent placement and CABG with also history of chronic systolic heart failure with EF 25-30% who presented with shortness of breathing and bilateral lower extremity edema Acute on chronic systolic heart failure with EF 25-30% status post dual chamber defibrillator -Chest x-ray suggests CHF. Due to elevated d-dimer, CTA was done which also suggest congestive heart failure. Negative for PE. -Patient on Bumex, dose decreased yesterday, creatinine still higher today. On room air. Shortness of breath better, repeat x-ray better, he would need thoracentesis. Hold Bumex. Monitor urine output. Hold lisinopril. Acute renal failure-likely secondary to overdiuresis, hold lisinopril, Lasix and potassium chloride. Creatinine still worsening, consult nephrology, Bumex on hold, lift fluid restriction. Bilateral lower extremity edema -Most likely secondary to CHF exacerbation. -Ultrasound of the right lower extremity was negative for any DVT. Severe coronary artery disease three-vessel disease LAD, circumflex, stented RCA status post CABG on 06/18 -Continue home medication. Peripheral vascular disease - history of right femoropopliteal with in situ saphenous vein grafting with thrombectomy of popliteal artery/anterior posterior tibial arteries [address] Mayes/Hypertension/Dyslipidemia/GERD/ gastroparesis/history of V. tach.Patient still complaining of pain in the right lower extremity, right arterial ultrasound showed SFA occlusion and occlusion of femoropopliteal bypass. Discussed with Dr. Pulido yesterday , he will see the patient. Pain per patient is not similar to his neuropathic pain. He is not on anticoagulation. Continue Plavix and statins, pain is worsening, starts around the clock extended release OxyContin at 20 mg twice a day. Peripheral neuropathy -Continue Lyrica.-When patient is discharged he can continue with his home regimen. He needs to follow-up with his primary care physician who is managing his chronic pain. Type 2 diabetes insulin-dependent complicated by peripheral neuropathy -continue home medication. -on SSI infrarenal abdominal aortic aneurysm- -f/u as outpatient- patient is already aware. DVT prophylaxis -Lovenox, switched to heparin Discharge Planning Discharge once cleared by cardiology and vascular surgery. Blaire Justice MD Jul 12, 2016 10:08
--- NOTE | 2016-07-12 15:49 | PD.CONS ---
HPI Service Nephrology Consult Requested By Dr. Justice Reason for Consult Acute renal insufficiency and chronic kidney disease Primary Care Physician [facility] History of Present Illness Patient is a 65-year-old male with history of diabetes, coronary artery disease status post recent CABG in May and seen by Dr. Sheehan's creatinine was at that time was 2.6 attending improved and he was discharged with a creatinine 1.2 patient is now coming in with increasing shortness of breath and receive diuretics again with some improvement he has peripheral edema as well his ejection fraction was 30%, his creatinine 1.[address] angiogram again on 07/04 Review of Systems Constitutional: COMPLAINS OF: Fatigue Respiratory: COMPLAINS OF: Shortness of breath Cardiovascular: COMPLAINS OF: Dyspnea on Exertion, Lower Extremity Edema Past Family Social History Allergies: Coded Allergies: No Known Allergies (Unverified , 07/04/16) Past Medical History Diabetes Chronic kidney disease CHF Coronary artery disease Hyperlipidemia Hypertension Past Surgical History CABG Atrial fibrillation Right leg bypass Circumcision Reported Medications Reported Meds & Active Scripts Active Amiodarone (Amiodarone HCl) 200 Mg Tab 200 Mg PO BID Potassium Chloride ER (Potassium Chloride) 20 Meq Tab 20 Meq PO BID take one tab twice a day x 7 days, then onece daily, take with bumex Oxycodone-Acetaminophen 5-325 mg Tab 1 Tab PO Q4H PRN Thera M Plus (Multivitamins/Minerals Therapeutic) 1 Tab 1 Tab PO DAILY 30 Days Coreg (Carvedilol) 3.125 Mg Tab 3.125 Mg PO Q12HR 30 Days Norvasc (Amlodipine Besylate) 5 Mg Tab 2.5 Mg PO DAILY 30 Days Reported Bumex (Bumetanide) 1 Mg Tab 1 Mg PO DAILY Lyrica (Pregabalin) 75 Mg Cap 75 Mg PO BID Omeprazole 20 Mg Tab 20 Mg PO DAILY Lantus Inj (Insulin Glargine) 1,000 Unit/10 Ml Vial 85 Units SQ HS Novolin R Inj (Insulin Human Regular) 1,000 Unit/10 Ml Vial 0 SQ Q6HR PRN Sliding Scale As Directed. Atorvastatin (Atorvastatin Calcium) 80 Mg Tab 80 Mg PO HS Aspirin EC (Aspirin) 81 Mg Tabdr 81 Mg PO DAILY Active Ordered Medications Current Medications Medications (Trade) Dose Ordered Sig/Lily Route Start Time Stop Time Status Last Admin (Cordarone) 200 mg BID PO 07/04/16 21:00 07/12/16 08:26 (Norvasc) 2.5 mg DAILY PO 07/05/16 09:00 07/12/16 08:26 (Ecotrin Ec) 81 mg DAILY PO 07/05/16 09:00 07/12/16 08:26 (Lipitor) 80 mg HS PO 07/04/16 21:00 07/11/16 21:17 (Coreg) 3.125 mg Q12HR PO 07/04/16 21:00 07/12/16 08:27 (Levemir Inj) 85 units HS SQ 07/04/16 21:00 (Theragran M Tab) 1 tab DAILY PO 07/05/16 09:00 07/12/16 08:26 (KCl) 20 meq BID PO 07/04/16 21:00 Hold 07/10/16 08:00 (Protonix) 20 mg DAILY PO 07/05/16 09:00 07/12/16 08:26 (NS Flush) 2 ml UNSCH PRN IV FLUSH 07/04/16 17:45 (NS Flush) 2 ml BID IV FLUSH 07/04/16 21:00 07/12/16 08:27 (Zofran Inj) 4 mg Q6H PRN IVP 07/04/16 17:45 (Narcan Inj) 0.4 mg UNSCH PRN IV 07/04/16 17:45 (D50w (Vial) Inj) 25 ml UNSCH PRN IV PUSH 07/04/16 18:15 (Glucagon Inj) 1 mg UNSCH PRN OTHER 07/04/16 18:15 (Pill Splitter) 1 ea UNSCH PRN OTHER 07/05/16 10:30 (Plavix) 75 mg DAILY PO 07/06/16 09:00 07/12/16 08:27 (Morphine Inj) 2 mg Q3H PRN IV PUSH 07/05/16 15:00 07/12/16 12:14 (Roxicodone) 15 mg Q4H PRN PO 07/05/16 14:00 07/12/16 11:20 (Prinivil) 5 mg DAILY PO 07/08/16 09:00 Hold 07/11/16 09:22 (Lyrica) 150 mg Q12HR PO 07/09/16 21:00 07/12/16 08:26 (Bumetanide) 1 mg DAILY PO 07/10/16 09:00 Hold 07/11/16 09:23 (OxyCONTIN CR) 20 mg Q12HR PO 07/12/16 10:15 (Heparin Inj) 5,000 units Q12HR SQ 07/12/16 21:00 Family History Noncontributory Social History Denies smoking or alcohol Physical Exam Vital Signs Vital Signs Date Time Temp Pulse Resp B/P Pulse Ox O2 Delivery O2 Flow Rate FiO2 07/12/16 13:01 70 07/12/16 12:00 70 07/12/16 11:15 97.9 70 18 109/70 98 07/12/16 11:00 70 07/12/16 10:00 70 07/12/16 09:30 18 07/12/16 09:00 70 07/12/16 08:15 98.6 70 18 108/67 96 07/12/16 08:00 70 07/12/16 07:00 70 07/12/16 06:00 70 07/12/16 05:14 70 16 105/67 95 07/12/16 05:00 70 07/12/16 04:00 70 07/12/16 03:00 70 07/12/16 02:00 70 07/12/16 01:00 70 07/12/16 00:00 70 07/11/16 23:30 71 16 102/59 95 07/11/16 23:30 70 07/11/16 22:00 70 07/11/16 21:00 70 07/11/16 20:00 70 07/11/16 19:30 97.6 94 16 126/78 98 07/11/16 19:00 70 07/11/16 18:00 70 07/11/16 17:00 70 07/11/16 16:58 16 07/11/16 16:20 98.0 70 18 95/55 97 07/11/16 16:20 70 Physical Exam GENERAL: Well-nourished, well-developed patient. SKIN: Warm and dry. HEAD: Normocephalic. EYES: No scleral icterus. No injection or drainage. NECK: Supple, trachea midline. No JVD or lymphadenopathy. CARDIOVASCULAR: Regular rate and rhythm without murmurs, gallops, or rubs. RESPIRATORY: Breath sounds equal bilaterally. No accessory muscle use. GASTROINTESTINAL: Abdomen soft, non-tender, nondistended. EXTREMITIES: No cyanosis, 1+ edema. NEUROLOGICAL: Awake, alert, and oriented x 3. Non-focal. Laboratory Laboratory Tests Test 07/12/16 05:42 Sodium Level 134 Potassium Level 5.4 Chloride Level 99 Carbon Dioxide Level 28.4 Anion Gap 7 Blood Urea Nitrogen 35 Creatinine 1.79 Estimat Glomerular Filtration 38 Rate Random Glucose 118 Calcium Level 8.5 Result Diagram: 07/10/16 0549 07/12/16 0542 Imaging Last Impressions Chest X-Ray 07/08/16 0000 Signed Impressions: Service Date/Time: Friday, July 08, 2016 17:11 - CONCLUSION: Bilateral pleural effusions. Kervin Jacob MD Arterial Ultrasound 07/06/16 0000 Signed Impressions: Service Date/Time: Wednesday, July 06, 2016 21:01 - CONCLUSION: SFA occlusion and occlusion of femoropopliteal bypass. Florencio Gomez MD CT Angiography 07/04/16 1344 Signed Impressions: Service Date/Time: Monday, July 04, 2016 14:49 - CONCLUSION: 1. No pulmonary embolus identified. 2. Bilateral effusions, cardiomegaly and diffuse interstitial prominence consistent with congestive failure Job Walters MD Lower Extremity Ultrasound 07/04/16 0000 Signed Impressions: Service Date/Time: Monday, July 04, 2016 18:36 - CONCLUSION: No DVT. Florencio Jules MD Assessment and Plan Problem List: (1) Acute renal failure Plan: He received contrast study given his chronic kidney disease with recent admission CT of the chest with IV contrast was done He has contrast-induced nephropathy He needs diuresis Avoid giving contrast or nephrotoxic agent (2) Congestive heart failure Plan: Continue to monitor and will use bumetanide (3) Diabetes mellitus Plan: Monitor (4) Lower extremity edema Plan: Due to congestive heart failure Checo Sr MD Jul 12, 2016 15:49
[2016-07-12] MEDS ORDERED: ALBUMIN HUMAN 25% 25 GM/100 ML BAGP IV ONE (17:00)
[2016-07-12] MEDS: BUMETANIDE INJ 1 MG/4 ML VIAL IV PUSH SCH (18:15)
--- NOTE | 2016-07-12 20:40 | MB ---
cc: KEVIN FELTON MD DATE OF CONSULTATION 07/11/16 REASON FOR CONSULTATION Peripheral vascular disease, ischemia of the right foot, coronary artery disease, CHF. HISTORY OF PRESENT ILLNESS This pleasant 65-year-old gentleman is known to me from previous encounters. About two years ago, the patient presented with an ischemic right foot as a result of occlusion of femoral-popliteal bypass done elsewhere. At [facility] bypass was clotted off shortly after being placed. The patient has follow up. The patient underwent a femoral to distal posterior tibial bypass with in situ vein. This bypass is still open today as below noted. The patient has some dry eschars mainly on the right and left heel and he had those about a month ago when he was going to have heart surgery. The patient now returns with a swelling of the right leg and severe CHF. Question arises about any vascular implications. PAST MEDICAL HISTORY 1. Coronary artery disease, 2. Myocardial infarctions, 3. Status post coronary artery bypass surgery, 4. Diabetes mellitus, 5. Chronic renal insufficiency 6. Hypoparathyroidism 7. Anemia PAST SURGICAL HISTORY 1. Coronary artery catheterization with Impella 2. Coronary artery bypass surgery dual-chamber pacemaker placement 3. Femoral-popliteal bypass at another institution and femoral to distal in situ vein bypass of the right leg by me about two years ago. MEDICATIONS On the record. SOCIAL HISTORY Drinks socially and stopped smoking after heart surgery. PHYSICAL EXAMINATION GENERAL: A 65-year-old gentleman, awake, alert, oriented HEENT: Normocephalic. No trauma to the head. Pupils equally reactive. Extraocular muscles intact. NECK: Bilateral carotid pulses and bilateral carotid bruits that were worked up in the past, found to be clinically nonsignificant. LUNGS: Bilateral breath sounds decreased over both lung wolfe consistent with some degree of COPD. HEART: Regular rhythm. ABDOMEN: Soft. Active bowel sounds. EXTREMITIES: The patient has palpable femoral pulses bilaterally. He has a strong dopplerable pulse in his in situ vein graft down the right leg. It can be best detected by placing the Doppler over the areas where the scars are where the vein was harvested. This goes into the posterior tibial artery just below the level of the knee. Feet are warm. The patient has necrotic eschars on both heels which are now almost healed. These are pressure sores clearly due to mattress pressure. In addition, the patient has dusky looking fourth toe of the right foot. Both feet are swollen and both legs are swollen with a pitting edema, right more than left. The patient has diabetes and, therefore, has neuropathy. Right now there is no drainage present. At this point, I do not recommend any vascular procedures. The patient has healing eschars on the heels. The problem here is repeated episodes of congestive failure which cause compression of the vessels below the knee. While the fem to distal in situ graft is now open two years later, the problem is with small vessel disease somewhere alf the calf to the ankle and then down into the feet. There is not much we can do about those and only control of blood pressure, control of congestive failure and renal failure will minimize the deleterious effect of these. I thank you much for referral. Kevin IVEY /8:13 PM /8:23 PM
[2016-07-12] MEDS: INSULIN DETEMIR 100 UNITS/ML VIAL SQ SCH (21:00)
[2016-07-12] MEDS: ATORVASTATIN 80 MG TAB PO SCH (21:09)
[2016-07-12] MEDS: HEPARIN SODIUM - SQ 10,000 UNITS/ML VIAL SQ SCH (21:10)
[2016-07-12] MEDS: oxyCODONE HCL 20 MG CONTROLLED RELEASE TAB PO SCH (21:11)
[2016-07-13] VITALS (12 sets, daily range): BP systolic 115–119; BP diastolic 65–70; PULSE 69–71; RESP 16–18; TEMP 97.8–98; O2SAT 93–94
[2016-07-13] MEDS: MORPHINE SULFATE 4 MG/ML INJ IV PUSH PRN ×2 (03:47→08:20)
[2016-07-13] MEDS: INSULIN ASPART SUPPLEMENTAL SCALE SQ SCH (06:01)
[2016-07-13] MEDS: PREGABALIN 75 MG CAP PO SCH (07:54)
[2016-07-13] MEDS: PANTOPRAZOLE SOD 20 MG DELAYED RELEASE TAB PO SCH (07:54)
[2016-07-13] MEDS: CLOPIDOGREL 75 MG TAB PO SCH (07:54)
[2016-07-13] MEDS: ASPIRIN EC 81 MG TABEC PO SCH (07:54)
[2016-07-13] MEDS: MULTIVITAMINS/MINERALS THERAPEUTIC TAB PO SCH (07:54)
[2016-07-13] MEDS: amLODIPine BESYLATE 5 MG TAB PO SCH (07:55)
[2016-07-13] MEDS: oxyCODONE HCL 20 MG CONTROLLED RELEASE TAB PO SCH (07:55)
[2016-07-13] MEDS: CARVEDILOL 3.125 MG TAB PO SCH (07:55)
[2016-07-13] MEDS: AMIODARONE 200 MG TAB PO SCH (07:55)
[2016-07-13] MEDS: BUMETANIDE INJ 1 MG/4 ML VIAL IV PUSH SCH (07:58)
[2016-07-13] MEDS: HEPARIN SODIUM - SQ 10,000 UNITS/ML VIAL SQ SCH (07:58)
[2016-07-13] MEDS ORDERED: OXYC20TA17 PO (09:27)
[2016-07-13] MEDS ORDERED: PLAV75TA29 PO (09:27)
[2016-07-13 09:34] LABS: BICARBONATE 29.1 MEQ/L (21.0-32.0); POTASSIUM 4.9 MEQ/L (3.5-5.1)
--- NOTE | 2016-07-13 09:50 | HHI.DS ---
Discharge Summary Admission Date Jul 04, 2016 at 16:22 Discharge Date: Jul 13, 2016 Admitting Diagnosis congestive heart failure. Pleural effusion. Renal sufficiency. Hy (1) Congestive heart failure ICD Code: I50.9 Diagnosis: Principal (2) Peripheral vascular disease ICD Code: I73.9 Diagnosis: Secondary (3) Acute renal failure ICD Code: N17.9 Diagnosis: Secondary Procedures none Brief History - From Admission This is a 65-year-old male with a recent admission due to severe coronary disease 3 vessels disease initially stented but then status post CABG on 06/18/16 , history of chronic systolic heart failure with EF of 25-30% status post AICD who presented with shortness of breathing and bilateral leg swelling. Patient stated that after he was discharged on June 25 he was doing well for about a day but then started to develop lower extremity edema that worsened since he was discharged. Patient stated that the last 2 days his breathing also worsen in which he had to sleep with more pillows and then yesterday had a sleep straight up. Patient stated that his baseline he is able to walk about 100 feet without shortness of breathing but now gets short of breath easily. He stated that about 3 AM this morning he has severe right lower extremity leg pain secondary to edema. He denies any calf pain. Patient denies any fevers or chills. He did state that he had a cough which is normal with mild clear sputum production. Patient denies any chest pain, palpitation, lightheadedness/ dizziness. CBC/BMP: 07/10/16 0549 07/13/16 0650 Significant Findings Laboratory Tests Test 07/11/16 07/12/16 07/13/16 05:56 05:42 06:50 Potassium Level 5.2 MEQ/L 5.4 MEQ/L (3.5-5.1) (3.5-5.1) Blood Urea Nitrogen 34 MG/DL (7-18) 35 MG/DL (7-18) 36 MG/DL (7-18) Creatinine 1.62 MG/DL 1.79 MG/DL 1.70 MG/DL (0.60-1.30) (0.60-1.30) (0.60-1.30) Estimat Glomerular Filtration 43 ML/MIN (>89) 38 ML/MIN (>89) 40 ML/MIN (>89) Rate Random Glucose 110 MG/DL 118 MG/DL 155 MG/DL (74-106) (74-106) (74-106) Calcium Level 8.4 MG/DL (8.5-10.1) Sodium Level 134 MEQ/L 133 MEQ/L (136-145) (136-145) PE at Discharge GENERAL: Not in distress. CARDIOVASCULAR: Regular rate and rhythm without murmurs, gallops, or rubs. RESPIRATORY: Bilateral basilar mild crackles, decreased breath sounds on the left. GASTROINTESTINAL: Abdomen soft, non-tender, nondistended. MUSCULOSKELETAL: Right leg trace pitting edema. Left leg trace pitting edema. Mild erythema in the right, poor pulses dorsalis pedis on the right. Not cold and clammy BACK: Nontender without obvious deformity. No CVA tenderness. Alert awake and oriented 3. No focal deficits Hospital Course This is a 65-year-old male with a recent admission due to inferior STEMI status post stent placement and CABG with also history of chronic systolic heart failure with EF 25-30% who presented with shortness of breathing and bilateral lower extremity edema. The patient was treated as a case of acute on chronic systolic heart failure with EF 25-30% status post dual chamber defibrillator.Chest x-ray suggests CHF. Due to elevated d-dimer, CTA was done which also suggest congestive heart failure. Negative for PE. Patient was started on diuresis intravenously with good response. After several days, patient's respiratory status improved but with worsening creatinine. Lisinopril was held. Patient was overdiuresis and probably also secondary to contrast had acute renal failure. Nephrology was consulted, ultrasound was unremarkable. Recommendation is continue diuresis. Patient will be discharged home to follow-up with nephrology in a few days and cardiology. Patient was started on Plavix. Patient was also seen by Dr. Sotomayor for peripheral vascular disease and right leg pain. Dr. Sotomayor thinks that this is mostly microvascular disease. Continue OxyContin, Plavix is previous. Follow-up with vascular surgery as outpatient. Pt Condition on Discharge: Good Discharge Disposition: Discharge Home Discharge Time: > 30 minutes Discharge Instructions DIET: Follow Instructions for: Heart Healthy Diet, Renal Failure Diet, Low Sodium Diet Activities you can perform: Regular-No Restrictions Follow up Referrals: Cardiology - 1 Week with [facility] - 1 Week PCP Follow-up - 1 Week New Orders: BASIC METABOLIC PROF - 2-3 Days New Medications: Clopidogrel (Plavix) 75 Mg Tab 75 MG PO DAILY blood thinner #30 TAB Oxycodone ER (Oxycontin) 20 Mg Tab 20 MG PO Q12HR Pain Management #20 TAB Continued Medications: Amiodarone (Amiodarone) 200 Mg Tab 200 MG PO BID Regulate Heart Beat #28 Ref 0 TAB Amlodipine (Norvasc) 5 Mg Tab 2.5 MG PO DAILY hypertension Days 30 Ref [address] (Aspirin EC) 81 Mg Tabdr 81 MG PO DAILY Ref 0 TAB Atorvastatin (Atorvastatin) 80 Mg Tab 80 MG PO HS Cholesterol Management #30 Ref 0 TAB Bumetanide (Bumex) 1 Mg Tab 1 MG PO DAILY Ref 0 TAB Carvedilol (Coreg) 3.125 Mg Tab 3.125 MG PO Q12HR cad Days 30 Ref 0 TAB Insulin Glargine Inj (Lantus Inj) 1,000 Unit/10 Ml Vial 85 UNITS SQ HS Blood Sugar Management Ref 0 VIAL Insulin Human Regular Inj (Novolin R Inj) 1,000 Unit/10 Ml Vial 0 SQ Q6HR Sliding Scale As Directed. PRN Blood Sugar Management #10 Ref 0 ML Multiple Vitamins W/ Minerals (Thera M Plus) 1 Tab 1 TAB PO DAILY vitamins Days 30 Ref 0 TAB Omeprazole (Omeprazole) 20 Mg Tab 20 MG PO DAILY #30 Ref 0 TAB Pregabalin (Lyrica) 75 Mg Cap 75 MG PO BID #60 Ref 0 CAP Discontinued Medications: Oxycodone-Acetaminophen (Oxycodone-Acetaminophen) 5-325 mg Tab 1 TAB PO Q4H PRN pain #15 Ref 0 TAB Potassium Chloride ER (Potassium Chloride ER) 20 Meq Tab 20 MEQ PO BID take one tab twice a day x 7 days, then onece daily, take with bumex Electrolyte Replacement #35 Ref 1 TAB Blaire Justice MD Jul 13, 2016 09:50
--- NOTE | 2016-07-14 15:26 | HHI.FF ---
Face to Face Verification Diagnosis: (1) Pressure ulcer of right heel, unstageable (2) Coronary artery disease Physical Therapy Order: Evaluate and Treat Home Health Nursing Order: Medical education Signs/symptoms of disease process CHF education Wound care and dressing changes Nursing assessment with vital signs I have seen patient Parag Polo on 07/14/16. My clinical findings support the need for the requested home health care services because: Ltd mobility - disease progression Limited ability to care for self I certify that my clinical findings support that this patient is homebound because: Unsteady gait/balance Blaire Justice MD Jul 14, 2016 15:26
== END 2016-07-13 10:52 | disposition home or self-care (01) | DRG 292 ==
LOC: NEPE 11:26 → NEDA 16:22 → HCIN 19:33
PROVIDERS: ADMIT Hospitalist; ATTEND Hospitalist
DX: I50.23 Acute on chronic systolic (congestive) heart failure (principal); I25.810 Atherosclerosis of coronary artery bypass graft(s) without angina pectoris; N17.9 Acute kidney failure, unspecified; E11.22 Type 2 diabetes mellitus with diabetic chronic kidney disease; G62.9 Polyneuropathy, unspecified; K31.84 Gastroparesis; I48.91 Unspecified atrial fibrillation; L89.619 Pressure ulcer of right heel, unspecified stage; I13.0 Hypertensive heart and chronic kidney disease with heart failure and stage 1 through stage 4 chronic kidney disease, or unspecified chronic kidney disease; E20.9 Hypoparathyroidism, unspecified; E78.5 Hyperlipidemia, unspecified; I73.9 Peripheral vascular disease, unspecified; Z95.1 Presence of aortocoronary bypass graft; N18.9 Chronic kidney disease, unspecified; G89.29 Other chronic pain; I25.2 Old myocardial infarction; I25.5 Ischemic cardiomyopathy; I71.4 Abdominal aortic aneurysm, without rupture; K21.9 Gastro-esophageal reflux disease without esophagitis; T50.2X5A Adverse effect of carbonic-anhydrase inhibitors, benzothiadiazides and other diuretics, initial encounter; F41.9 Anxiety disorder, unspecified; F17.200 Nicotine dependence, unspecified, uncomplicated; Z79.4 Long term (current) use of insulin; Z95.810 Presence of automatic (implantable) cardiac defibrillator; Z95.5 Presence of coronary angioplasty implant and graft; Z91.19 Patient's noncompliance with other medical treatment and regimen
CPT/HCPCS: 36600; 71010; 71020; 71275; 80048; 80053; 81001; 82550; 82805; 82948; 83735; 84484; 85025; 85027; 85379; 85730; 93005; 93926; 93971; 96374; 96375; 96376; J1170; J1644; J1650; J1815; J2270; J2405; P9047; Q9967

== ENCOUNTER 2016-09-01 00:37 | Inpatient (IN) | payer OTHER ==
[2016-09-01] VITALS (27 sets, daily range): BP systolic 69–211; BP diastolic 45–117; PULSE 69–116; RESP 9–36; TEMP 97.7–98.7; O2SAT 86–100
[~2016-09-01 00:37] MED LIST changes: -OXYC1TAB63 PO; +OXYC20TA17 PO; +PLAV75TA29 PO; -POTA-163 PO; -[UNRECOGNIZED DRUG - CODE]
[2016-09-01] MEDS ORDERED: ROCURONIUM INJ 50 MG/5 ML VIAL IV ONE (00:45)
[2016-09-01] MEDS ORDERED: ETOMIDATE 20 MG/10 ML VIAL IV PUSH ONE (00:45)
[2016-09-01] MEDS ORDERED: PROPOFOL 1000 MG/100 ML INJ 100 ML IV SCH ×2 (00:45→01:45)
[2016-09-01] MEDS ORDERED: PROPOFOL 1000 MG/100 ML INJ 100 ML ONE (00:45)
[2016-09-01] MEDS ORDERED: fentaNYL DRIP 250 ML ONE (00:49)
[2016-09-01] MEDS: fentaNYL DRIP 250 ML IV SCH ×2 (00:57→01:18)
--- NOTE | 2016-09-01 01:00 | PD ---
HPI Chief Complaint: respiratory Time Seen by Provider: 00:44 Travel History International Travel<30 days: No Contact w/Intl Traveler<30days: No Traveled to known affect area: No History of Present Illness HPI 65-year-old male complains of shortness of breath. Patient has history of CHF. Patient states that the shortness of breath started this evening. EMS was called. Patient O2 sat duration was in the 70s at home. Patient was given Lasix 100 mg IV and BiPAP and transported to the ED for evaluation. Upon arrival patient with tachypnea and diaphoresis and lethargic. Patient has history of CAD status post CABG and stent placement. Patient also has history of systolic CHF with ejection fraction of 25-30%. Patient status post AICD placement. In reviewing medical records, patient also has history of diabetes and possible hypertension. Patient also has history of kidney disease. PFSH Past Medical History Atrial Fibrillation: Yes Diabetes: Yes Immunizations Current: Yes Myocardial Infarction: Yes Past Surgical History Appendectomy: Yes Cardiac Surgery: Yes (pacemaker) Coronary Artery Bypass Graft: Yes Coronary Stent: Yes Other Surgery: Yes (right leg artery collapsed and re-vascularized) Social History Alcohol Use: No Tobacco Use: No Substance Use: No Allergies-Medications (Allergen,Severity, Reaction): Coded Allergies: No Known Allergies (Unverified , 07/04/16) Reported Meds & Prescriptions Reported Meds & Active Scripts Active Oxycontin (Oxycodone HCl) 20 Mg Tab 20 Mg PO Q12HR Plavix (Clopidogrel Bisulfate) 75 Mg Tab 75 Mg PO DAILY Amiodarone (Amiodarone HCl) 200 Mg Tab 200 Mg PO BID Thera M Plus (Multivitamins/Minerals Therapeutic) 1 Tab 1 Tab PO DAILY 30 Days Coreg (Carvedilol) 3.125 Mg Tab 3.125 Mg PO Q12HR 30 Days Norvasc (Amlodipine Besylate) 5 Mg Tab 2.5 Mg PO DAILY 30 Days Reported Bumex (Bumetanide) 1 Mg Tab 1 Mg PO DAILY Lyrica (Pregabalin) 75 Mg Cap 75 Mg PO BID Omeprazole 20 Mg Tab 20 Mg PO DAILY Novolin R Inj (Insulin Human Regular) 1,000 Unit/10 Ml Vial 0 SQ Q6HR PRN Sliding Scale As Directed. Atorvastatin (Atorvastatin Calcium) 80 Mg Tab 80 Mg PO HS Aspirin EC (Aspirin) 81 Mg Tabdr 81 Mg PO DAILY Review of Systems General / Constitutional: No: Fever Eyes: No: Visual changes HENT: No: Headaches Cardiovascular: No: Chest Pain or Discomfort Respiratory: Positive: Shortness of Breath Gastrointestinal: No: Abdominal Pain Genitourinary: No: Dysuria Musculoskeletal: No: Pain Skin: No Rash Neurologic: No: Weakness Psychiatric: No: Depression Endocrine: No: Polydipsia Hematologic/Lymphatic: No: Easy Bruising Physical Exam Narrative GENERAL: Well-nourished, well-developed patient. Patient is pale, diaphoretic and tachypneic. SKIN: Focused skin assessment warm/dry. HEAD: Normocephalic. EYES: No scleral icterus. No injection or drainage. NECK: Supple, trachea midline. No JVD or lymphadenopathy. CARDIOVASCULAR: Tachycardia rate and rhythm without murmurs, gallops, or rubs. RESPIRATORY: Patient has diminished breath sounds bilaterally with rhonchi at the bases.. GASTROINTESTINAL: Abdomen soft, non-tender, nondistended. MUSCULOSKELETAL: No cyanosis, or edema. BACK: Nontender without obvious deformity. No CVA tenderness. Neurologic exam: Patient's lethargic however answer questions appropriately. Patient moves all extremities well. No obvious focal neurological deficit. Data Data Last Documented VS Vital Signs Date Time Temp Pulse Resp B/P Pulse Ox O2 Delivery O2 Flow Rate FiO2 09/01/16 03:00 70 18 143/65 100 Ventilator 09/01/16 02:21 100 09/01/16 01:00 97.7 Orders Propofol 1000 Mg/100 Ml Inj (Diprivan 10 (09/01/16 00:45) Etomidate Inj (Amidate Inj) (09/01/16 00:45) Rocuronium Inj (Zemuron Inj) (09/01/16 00:45) Propofol 1000 Mg/100 Ml Inj (Diprivan 10 (09/01/16 00:45) ^ Infusion (09/01/16 00:45) RASS (09/01/16 00:45) Neurological Rass Scale BENJA.Q2H (09/01/16 00:45) Electrocardiogram (09/01/16 00:46) Complete Blood Count With Diff (09/01/16 00:46) Comprehensive Metabolic Panel (09/01/16 00:46) Creatine Kinase (Cpk) (09/01/16 00:46) Troponin I (09/01/16 00:46) B-Type Natriuretic Peptide (09/01/16 00:46) Prothrombin Time / Inr (Pt) (09/01/16 00:46) Act Partial Throm Time (Ptt) (09/01/16 00:46) Arterial Blood Gas (Abg) (09/01/16 00:46) Blood Culture (09/01/16 00:46) Urinalysis - C+S If Indicated (09/01/16 00:46) Thyroid Stimulating Hormone (09/01/16 00:46) Chest, Single Ap (09/01/16 00:46) Iv Access Insert/Monitor (09/01/16 00:46) Ecg Monitoring (09/01/16 00:46) Oximetry (09/01/16 00:46) Urinary Catheter Insert/Apply (09/01/16 00:46) Corinne-Gastric Tube Insert/Mon (09/01/16 00:46) Neurological Rass Scale Q30MX2,Q2HX4,Q4H (09/01/16 00:48) Fentanyl Drip (Fentanyl Drip) (09/01/16 01:00) Restraints Non-Violent BENJA.Q3H (09/01/16 00:48) Fentanyl Drip (Fentanyl Drip) (09/01/16 00:49) Resp Ventilation- Volume (09/01/16 ) Amiodarone (Cordarone) (09/01/16 09:00) Amlodipine (Norvasc) (09/01/16 09:00) Aspirin Ec (Ecotrin Ec) (09/01/16 09:00) Atorvastatin (Lipitor) (09/01/16 21:00) Bumetanide (Bumetanide) (09/01/16 09:00) Carvedilol (Coreg) (09/01/16 09:00) Clopidogrel (Plavix) (09/01/16 09:00) Multivitamins-Minerals Therap (Theragran (09/01/16 09:00) Pregabalin (Lyrica) (09/01/16 09:00) Pantoprazole (Protonix) (09/01/16 08:00) Blood Glucose Goal (Criteria) (09/01/16 01:41) Hypoglycemia 70 Mg/Dl Or < (09/01/16 01:41) Notify Dr: Other (09/01/16 01:41) Dextrose 50% In Jone (Vial) Inj (D50w (Vi (09/01/16 01:45) Glucagon Inj (Glucagon Inj) (09/01/16 01:45) Insulin Aspart Supplemtl Scale (Novolog (09/01/16 07:00) Pill Splitter (Pill Splitter) (09/01/16 02:00) Admit To Inpatient (09/01/16 ) Code Status (09/01/16 01:45) Vital Signs (Adult) BENJA.Q1H (09/01/16 01:45) Activity Bed Rest (09/01/16 01:45) ^ Elevate Head Of Bed (09/01/16 01:45) Neuro Checks . ORDERED (09/01/16 01:45) Intake + Output Q1H (09/01/16 01:45) Diet Tube Feed Only (09/01/16 Breakfast) Sodium Chloride 0.9% Flush (Ns Flush) (09/01/16 01:45) Sodium Chloride 0.9% Flush (Ns Flush) (09/01/16 09:00) Acetaminophen (Tylenol) (09/01/16 01:45) Morphine Inj (Morphine Inj) (09/01/16 01:45) Midazolam Inj (Versed Inj) (09/01/16 01:45) Artificial Tears Opth Soln (Tears Natura (09/01/16 09:00) Ondansetron Inj (Zofran Inj) (09/01/16 01:45) Metoclopramide Inj (Reglan Inj) (09/01/16 01:45) Prochlorperazine Supp (Compazine Supp) (09/01/16 01:45) Zolpidem (Ambien) (09/01/16 01:45) Albuterol-Ipratropium Neb (Duoneb Neb) (09/01/16 01:45) Complete Blood Count With Diff (09/02/16 04:00) Comprehensive Metabolic Panel (09/02/16 04:00) Troponin I (09/01/16 01:45) Troponin I (09/01/16 07:45) Act Partial Throm Time (Ptt) (09/02/16 04:00) Prothrombin Time / Inr (Pt) (09/02/16 04:00) Magnesium (Mg) (09/02/16 04:00) Phosphorus (Po4) (09/02/16 04:00) Chest, Single Ap (09/02/16 ) Electrocardiogram (09/01/16 08:00) Electrocardiogram (09/01/16 14:00) Electrocardiogram (09/01/16 20:00) Echo 2d Comp With Doppler (09/01/16 ) Arterial Blood Gas (Abg) (09/01/16 ) Pt Request For Service (09/01/16 01:45) Kitchen Food Server / Telemetry BENJA.Q8H (09/01/16 01:45) Heparin Inj (Heparin Inj) (09/01/16 06:00) Scd Bilateral/Knee High BENJA.BID (09/01/16 01:45) Anuj Bilateral/Knee High BENJA.QSHIFT (09/01/16 01:45) ^ Initiate Protocol (09/01/16 01:45) Instruction (09/01/16 01:45) Misc Nursing Information (09/01/16 01:45) Chlorhexidine 2% Cloth (Chlorhexidine 2% (09/01/16 04:00) Chlorhexidine 2% Cloth (Chlorhexidine 2% (09/01/16 01:45) Mrsa Pcr Surveillance (09/01/16 01:45) Docusate Sodium-Senna (Katia-Colace) (09/01/16 09:00) Magnesium Hydroxide Liq (Milk Of Magnesi (09/01/16 01:45) Sennosides (Senokot) (09/01/16 01:45) Bisacodyl Supp (Dulcolax Supp) (09/01/16 01:45) Lactulose Liq (Lactulose Liq) (09/01/16 01:45) Neurological Rass Scale Q30MX2,Q2HX4,Q4H (09/01/16 01:45) Fentanyl Drip (Fentanyl Drip) (09/01/16 01:45) Propofol 1000 Mg/100 Ml Inj (Diprivan 10 (09/01/16 01:45) Inpatient Certification (09/01/16 ) Tube Feeding 08,20 (09/01/16 01:45) Blood Glucose Goal (Criteria) (09/01/16 01:52) Hypoglycemia 70 Mg/Dl Or < (09/01/16 01:52) Notify Dr: Other (09/01/16 01:52) Dextrose 50% In Jone (Vial) Inj (D50w (Vi (09/01/16 02:00) Glucagon Inj (Glucagon Inj) (09/01/16 02:00) Insulin Aspart Supplemtl Scale (Novolog (09/01/16 07:00) Albuterol-Ipratropium Neb (Duoneb Neb) (09/01/16 02:00) Norepinephrine Inj (Levophed Inj) (09/01/16 02:27) Admit Order (Ed Use Only) (09/01/16 03:31) Labs Laboratory Tests Test 09/01/16 09/01/16 00:50 01:34 White Blood Count 17.5 TH/MM3 Red Blood Count 4.80 MIL/MM3 Hemoglobin 14.0 GM/DL Hematocrit 43.0 % Mean Corpuscular Volume 89.7 FL Mean Corpuscular Hemoglobin 29.1 PG Mean Corpuscular Hemoglobin 32.5 % Concent Red Cell Distribution Width 16.9 % Platelet Count 343 TH/MM3 Mean Platelet Volume 8.9 FL Neutrophils (%) (Auto) % Lymphocytes (%) (Auto) % Monocytes (%) (Auto) % Eosinophils (%) (Auto) % Basophils (%) (Auto) % Neutrophils # (Auto) TH/MM3 Lymphocytes # (Auto) TH/MM3 Monocytes # (Auto) TH/MM3 Eosinophils # (Auto) TH/MM3 Basophils # (Auto) TH/MM3 CBC Comment AUTO DIFF Differential Total Cells 100 Counted Neutrophils % (Manual) 47 % Lymphocytes % 43 % Monocytes % 6 % Eosinophils % 3 % Basophils % 1 % Neutrophils # (Manual) 8.2 TH/MM3 Differential Comment FINAL DIFF MANUAL Platelet Estimate NORMAL Platelet Morphology Comment NORMAL Ovalocytes 1+ Prothrombin Time 10.7 SEC Prothromb Time International 1.0 RATIO Ratio Activated Partial 28.9 SEC Thromboplast Time Urine Color LIGHT-YELLOW Urine Turbidity CLEAR Urine pH 5.5 Urine Specific [place] 1.008 Urine Protein 100 mg/dL Urine Glucose (UA) 70 mg/dL Urine Ketones NEG mg/dL Urine Occult Blood SMALL Urine Nitrite NEG Urine Bilirubin NEG Urine Urobilinogen LESS THAN 2.0 MG/DL Urine Leukocyte Esterase NEG Urine RBC 4-9 /hpf Urine Amorphous Sediment SMALL Microscopic Urinalysis Comment CULT NOT INDICATED Sodium Level 139 MEQ/L Potassium Level 5.2 MEQ/L Chloride Level 110 MEQ/L Carbon Dioxide Level 21.9 MEQ/L Anion Gap 7 MEQ/L Blood Urea Nitrogen 26 MG/DL Creatinine 1.35 MG/DL Estimat Glomerular Filtration 53 ML/MIN Rate Random Glucose 271 MG/DL Calcium Level 8.8 MG/DL Total Bilirubin 0.4 MG/DL Aspartate Amino Transf 65 U/L (AST/SGOT) Alanine Aminotransferase 49 U/L (ALT/SGPT) Alkaline Phosphatase 165 U/L Total Creatine Kinase 137 U/L Troponin I LESS THAN 0.02 NG/ML B-Type Natriuretic Peptide 464 PG/ML Total Protein 8.2 GM/DL Albumin 3.7 GM/DL Thyroid Stimulating Hormone 3.200 uIU/ML 3rd Gen Blood Gas Puncture Site RT BRACHIAL Blood Gas Patient Temperature 98.6 Blood Gas HCO3 22 mmol/L Blood Gas Base Excess -5.5 mmol/L Blood Gas Oxygen Saturation 94 % Arterial Blood pH 7.15 Arterial Blood Partial 67 mmHg Pressure CO2 Arterial Blood Partial 130 mmHG Pressure O2 Arterial Blood Oxygen Content 18.8 Vol % Arterial Blood 3.3 % Carboxyhemoglobin Arterial Blood Methemoglobin 1.0 % Blood Gas Hemoglobin 14.2 G/DL Oxygen Delivery Device VENTILATOR Blood Gas Ventilator Setting PRVC Blood Gas Inspired Oxygen 100 % [facility] Medical Decision Making Medical Screen Exam Complete: Yes Emergency Medical Condition: Yes Interpretation(s) Last Impressions Chest X-Ray 09/01/16 0046 Signed Impressions: Service Date/Time: Thursday, September 01, 2016 01:02 - CONCLUSION: Early failure. ET tube is in good position. Feliz Mariano MD 3:29 AM. CBC WBC 17.5. Normal differential. Potassium 5.2. Chloride 110. BUN 26 with a creatinine 1.35. Glucose 271. AST 65. Apply phosphatase 165. Cardiac enzymes are normal. BNP 464. UA is negative. Differential Diagnosis Differential diagnosis including acute exacerbation of CHF, bronchitis, pneumonia, he, pneumothorax. Narrative Course 65-year-old male with shortness of breath. History of CHF. Patient came in by EMS in respiratory distress. Patient was given Lasix 100 mg IV and BiPAP prior to arrival. Patient's diaphoretic and struggling breathing. Patient was intubated. Critical Care Narrative Aggregate critical care time was 60 minutes. Time to perform other separately billable procedures was not included in the critical care time. My time did not include minutes spent treating any other patients simultaneously or on activities that did not directly contribute to the patient's treatment. The services I provided to this patient were to treat and/or prevent clinically significant deterioration that could result in: I provided critical care services requiring my management, as noted below: Chart data review, documentation time, medication orders and management, vital sign assessments/reviewing monitor data, ordering and reviewing lab tests, ordering and interpreting/reviewing x-rays and diagnostic studies, care of the patient and discussion of the patient with the admitting physicians. Procedures Procedure Narrative After the risks and benefits were discussed the following procedure was performed: INTUBATION: The patient was put in optimal position for the procedure. Rapid sequence intubation was initiated by me using 20 milligrams of etomidate IV and 50 milligrams of rocuronium IV. The patient was intubated with a 7.5 cuffed endotracheal tube. Tube placement was confirmed by visualization of the tube and balloon passing through the cords, capnometry and subsequent chest x-ray. Breath sounds were equal and well aerated bilaterally postintubation. No breath sounds over stomach. Patient tolerated procedure well.After CENTRAL VENOUS LINE: The site was prepped with Betadine and sterilely draped. It was infiltrated with 1% lidocaine plain. The deep vein was cannulated using normal Seldinger technique. A triple lumen central line was placed in the right femoral vein site and secured with simple interrupted suture. The site was sterilely dressed. The patient tolerated the procedure well. Diagnosis Primary Impression: Acute respiratory failure with hypoxia Additional Impression: Acute exacerbation of CHF (congestive heart failure) Qualified Code: I50.23 - Acute on chronic systolic congestive heart failure Admitting Information Admitting Physician Requests: Fly Roberts MD Sep 01, 2016 01:00
--- NOTE | 2016-09-01 01:29 | RADRPT ---
EXAM DATE/TIME: 09/01/2016 01:02 [facility] COMPARISON: CHEST SINGLE AP, July 04, 2016, 12:13. INDICATIONS : E-T tube placement. MEDICAL HISTORY : Diabetes mellitus type II. SURGICAL HISTORY : Pacemaker. CABG. ENCOUNTER: Initial ACUITY: 1 day PAIN SCORE: Non-responsive. LOCATION: Bilateral chest FINDINGS: A single view of the chest demonstrates the endotracheal tube, nasogastric tube and less clearly than bipolar pacer in good position. There is perihilar vascular congestion with increased interstitial i ndistinctness new since June. The cardiomediastinal contours are unremarkable. Osseous structures are intact. Numerous sternal wires. CONCLUSION: Early failure. ET tube is in good position. Feliz Mariano MD on September 01, 2016 at 1:26 Board Certified Radiologist. This report was verified electronically.
[2016-09-01 01:37] LABS: MEAN CELL VOLUME 89.7 FL (80.0-100.0); MEAN CORPUSCULAR HEMOGLOBIN 29.1 PG (27.0-34.0); MEAN CORPUSCULAR HGB CONC 32.5 % (32.0-36.0); PLATELET COUNT 343 TH/MM3 (150-450); RED CELL DISTRIBUTION WIDTH 16.9 % (11.6-17.2); WHITE BLOOD COUNT 17.5 TH/MM3 (4.0-11.0)
[2016-09-01 01:38] LABS: HEMO FLAGS AUTO DIFF
[2016-09-01 01:39] LABS: BLOOD, URINE SMALL (NEG); GLUCOSE,URINE 70 mg/dL (NEG); KETONE, URINE NEG (NEG); NITRITE,URINE NEG (NEG); PH, URINE 5.5 (5.0-8.5); URINE COLOR LIGHT-YELLOW (YELLW/STRAW)
[2016-09-01 01:43] LABS: COMMENT (UR) CULT NOT INDICATED; CULTURE IF INDICATED CULT NOT INDICATED
[2016-09-01 01:45] LABS: APTT (PATIENT) 28.9 SEC (24.3-30.1); PROTHROMBIN TIME - PATIENT 10.7 SEC (9.8-11.6)
[2016-09-01] MEDS ORDERED: SENNOSIDES 8.6 MG TAB PO PRN (01:45)
[2016-09-01] MEDS ORDERED: PROCHLORPERAZINE 25 MG SUPP RECTAL PRN (01:45)
[2016-09-01] MEDS ORDERED: ZOLPIDEM TARTRATE 5 MG TAB PO PRN (01:45)
[2016-09-01] MEDS ORDERED: BISACODYL 10 MG SUPP RECTAL PRN (01:45)
[2016-09-01] MEDS ORDERED: ACETAMINOPHEN 325 MG TAB PO PRN (01:45)
[2016-09-01] MEDS ORDERED: LACTULOSE SYRUP 20 GM/30 ML CUP PO PRN (01:45)
[2016-09-01] MEDS ORDERED: METOCLOPRAMIDE HCL 10 MG/2 ML VIAL IV PRN (01:45)
[2016-09-01] MEDS ORDERED: DEXTROSE 50% IN WATER 50 ML VIAL(D50) IV PRN ×2 (01:45→02:00)
[2016-09-01] MEDS ORDERED: ONDANSETRON HCL 4 MG/2 ML VIAL IV PRN (01:45)
[2016-09-01] MEDS ORDERED: CHLORHEXIDINE GLUCONATE 2 % 1 PACK (2 CLOTHS) TOP PRN (01:45)
[2016-09-01] MEDS ORDERED: MIDAZOLAM HCL 2 MG/2 ML VIAL IV PRN (01:45)
[2016-09-01] MEDS ORDERED: SODIUM CHLORIDE 0.9% FLUSH 10 ML FLUSH PRN (01:45)
[2016-09-01] MEDS ORDERED: GLUCAGON 1 MG/ML VIAL OTHER PRN ×2 (01:45→02:00)
[2016-09-01] MEDS ORDERED: RESP: ALBUTEROL 2.5 MG/IPRATROPIUM 0.5 MG NEB (PRN) INH (01:45)
[2016-09-01] MEDS ORDERED: MISCELLANEOUS NURSING INFORMATION XX SCH (01:45)
[2016-09-01] MEDS ORDERED: MAGNESIUM HYDROXIDE SUSP 30 ML CUP PO PRN (01:45)
[2016-09-01] MEDS ORDERED: fentaNYL DRIP 250 ML IV SCH (01:45)
[2016-09-01] MEDS ORDERED: PILL SPLITTER OTHER PRN (02:00)
[2016-09-01] MEDS ORDERED: RESP: ALBUTEROL 2.5 MG/IPRATROPIUM 0.5 MG NEB (SCH) INH ONE (02:00)
--- NOTE | 2016-09-01 02:01 | HHI.HP ---
HPI Service Critical Care Medicine Primary Care Physician Unknown Admission Diagnosis Diagnosis: Travel History International Travel<30 Days: No Contact w/Intl Traveler <30 Da: No Traveled to Known Affected Are: No History of Present Illness 65-year-old male with history of CHF with ejection fraction of 25-30%, status post AICD placement, coronary artery disease status post CABG and stent placement, diabetes mellitus on insulin, hypertension, mild chronic kidney disease presented to emergency department with shortness of breath. Per medical record the shortness of breath started this evening. EMS was called. Patient O2 sat duration was in the 70s at home. Patient was given Lasix 100 mg IV and BiPAP and transported to the ED for evaluation. Upon arrival patient with tachypnea and diaphoresis and lethargic. He was intubated by ER attending. Review of Systems ROS Unable to obtain patient is sedated and intubated Past Family Social History Allergies: Coded Allergies: No Known Allergies (Unverified , 07/04/16) Past Medical History Chronic systolic heart failure EF 25-30% with mild LVH and diffuse hypokinesis Peripheral vascular disease - history of right femoropopliteal with in situ saphenous vein grafting with thrombectomy of popliteal artery/anterior posterior tibial arteries [address] Mayes Coronary artery disease recent PCI/drug-eluting stent to RCA/PDA 04/[address] Kan secondary to inferior STEMI Dual-chamber defibrillator placed 05/[address] Yousif. DDD/70 Hypertension Dyslipidemia Elevated troponin Stent thrombosis RCA- Severe CAD three-vessel LAD, circumflex, stented RCA- S/P CABG 06/18. infrarenal abdominal aortic aneurysm Chronic kidney disease Type 2 diabetes insulin-dependent Peripheral neuropathy Hypertension Gastroparesis Gastritis Past Surgical History 06/16- EGD- retained food 06/18- CABG history of right femoropopliteal with in situ saphenous vein grafting with thrombectomy of popliteal artery/anterior posterior tibial arteries [address] Mayes PCI/drug-eluting stent to RCA/PDA 04/[address] Kan Dual-chamber defibrillator placed 05/[address] Yousif. Reported Medications Reported Meds & Active Scripts Active Oxycontin (Oxycodone HCl) 20 Mg Tab 20 Mg PO Q12HR Plavix (Clopidogrel Bisulfate) 75 Mg Tab 75 Mg PO DAILY Amiodarone (Amiodarone HCl) 200 Mg Tab 200 Mg PO BID Thera M Plus (Multivitamins/Minerals Therapeutic) 1 Tab 1 Tab PO DAILY 30 Days Coreg (Carvedilol) 3.125 Mg Tab 3.125 Mg PO Q12HR 30 Days Norvasc (Amlodipine Besylate) 5 Mg Tab 2.5 Mg PO DAILY 30 Days Reported Bumex (Bumetanide) 1 Mg Tab 1 Mg PO DAILY Lyrica (Pregabalin) 75 Mg Cap 75 Mg PO BID Omeprazole 20 Mg Tab 20 Mg PO DAILY Novolin R Inj (Insulin Human Regular) 1,000 Unit/10 Ml Vial 0 SQ Q6HR PRN Sliding Scale As Directed. Atorvastatin (Atorvastatin Calcium) 80 Mg Tab 80 Mg PO HS Aspirin EC (Aspirin) 81 Mg Tabdr 81 Mg PO DAILY Active Ordered Medications Current Medications Medications (Trade) Dose Ordered Sig/Lily Route PRN Reason Start Time Stop Time Status Last Admin Dose Admin Propofol 100 ml @ 0 mls/hr TITRATE IV 09/01/16 00:45 09/01/16 01:19 Fentanyl Citrate (fentaNYL DRIP) 250 ml @ 0 mls/hr TITRATE IV 09/01/16 01:00 09/01/16 01:18 Amiodarone HCl (Cordarone) 200 mg BID PO 09/01/16 09:00 Amlodipine Besylate (Norvasc) 2.5 mg DAILY PO 09/01/16 09:00 Aspirin (Ecotrin Ec) 81 mg DAILY PO 09/01/16 09:00 Atorvastatin Calcium (Lipitor) 80 mg HS PO 09/01/16 21:00 Bumetanide (Bumetanide) 1 mg DAILY PO 09/01/16 09:00 Carvedilol (Coreg) 3.125 mg Q12HR PO 09/01/16 09:00 Clopidogrel Bisulfate (Plavix) 75 mg DAILY PO 09/01/16 09:00 Multivitamins/ Minerals Therapeutic (Theragran M Tab) 1 tab DAILY PO 09/01/16 09:00 UNV Pregabalin (Lyrica) 75 mg BID PO 09/01/16 09:00 UNV Non-Formulary Medication 20 mg DAILY PO 09/01/16 09:00 UNV Dextrose (D50w (Vial) Inj) 50 ml UNSCH PRN IV HYPOGLYCEMIA-SEE COMMENTS 09/01/16 01:45 UNV Glucagon (Glucagon Inj) 1 mg UNSCH PRN OTHER HYPOGLYCEMIA-SEE COMMENTS 09/01/16 01:45 UNV Family History Noncontributory Social History Smokes three-quarter pack per day Denies alcohol or illicit drug Physical Exam Vital Signs Vital Signs Date Time Temp Pulse Resp B/P Pulse Ox O2 Delivery O2 Flow Rate FiO2 09/01/16 01:00 97.7 36 86 09/01/16 00:45 115 38 86 CPAP Physical Exam GENERAL: Elderly appearing male sedated and intubated SKIN: Warm and dry. HEAD: Normocephalic. EYES: No scleral icterus. No injection or drainage. NECK: Supple, trachea midline. No JVD or lymphadenopathy. CARDIOVASCULAR: Regular rate and rhythm without murmurs, gallops, or rubs. RESPIRATORY: Breath sounds equal bilaterally. No accessory muscle use. GASTROINTESTINAL: Abdomen soft, non-tender, nondistended. MUSCULOSKELETAL: No cyanosis, or edema. BACK: Nontender without obvious deformity. No CVA tenderness. EXTREMITIES: No clubbing or cyanosis. Dermatitis from chronic venous stasis Laboratory Laboratory Tests Test 09/01/16 00:50 White Blood Count 17.5 Red Blood Count 4.80 Hemoglobin 14.0 Hematocrit 43.0 Mean Corpuscular Volume 89.7 Mean Corpuscular Hemoglobin 29.1 Mean Corpuscular Hemoglobin 32.5 Concent Red Cell Distribution Width 16.9 Platelet Count 343 Mean Platelet Volume 8.9 Neutrophils (%) (Auto) Lymphocytes (%) (Auto) Monocytes (%) (Auto) Eosinophils (%) (Auto) Basophils (%) (Auto) Neutrophils # (Auto) Lymphocytes # (Auto) Monocytes # (Auto) Eosinophils # (Auto) Basophils # (Auto) CBC Comment AUTO DIFF Urine Color LIGHT-YELLOW Urine Turbidity CLEAR Urine pH 5.5 Urine Specific [place] 1.008 Urine Protein 100 Urine Glucose (UA) 70 Urine Ketones NEG Urine Occult Blood SMALL Urine Nitrite NEG Urine Bilirubin NEG Urine Urobilinogen LESS THAN 2.0 Urine Leukocyte Esterase NEG Urine RBC 4-9 Urine Amorphous Sediment SMALL Microscopic Urinalysis Comment CULT NOT INDICATED Result Diagram: 09/01/16 005 Imaging Last 24 hours Impressions Chest X-Ray 09/01/16 0046 Signed Impressions: Service Date/Time: Thursday, September 01, 2016 01:02 - CONCLUSION: Early failure. ET tube is in good position. Feliz Mariano MD Assessment and Plan Assessment and Plan Respiratory failure - Early pulmonary edema - Mechanical ventilation - Repeat an ABG and CXR Diabetes mellitus - Insulin sliding scale - Hold long-acting insulin while nothing by mouth Congestive heart failure - Continue diuresis - Continue beta sj - Repeat CXR - Repeat 2-D echo Coronary artery disease - Atorvastatin - Aspirin and Plavix Dyslipidemia - Atorvastatin Diabetic neuropathy - Lyrica Chronic kidney disease - Monitor urine output - Monitor electrolytes and creatinine levels DVT GI prophylaxis - Teds SCDs and subcutaneous heparin - Omeprazole Critical Care: The total critical care time was 35 minutes. Time to perform other separately billable procedures was not included in the critical care time. Mian Dooley MD Sep 01, 2016 02:01
[2016-09-01 02:04] LABS: ALKALINE PHOSPHATASE 165 U/L (45-117); ALT (GPT) 49 U/L (12-78); ANION GAP 7 MEQ/L (5-15); AST (GOT) 65 U/L (15-37); BICARBONATE 21.9 MEQ/L (21.0-32.0); BLOOD UREA NITROGEN 26 MG/DL (7-18); CHLORIDE 110 MEQ/L (98-107); CREATINE KINASE 137 U/L (39-308); GLOMERULAR FILTRATION RATE 53 ML/MIN (>89); SODIUM (NA) 139 MEQ/L (136-145); TOTAL BILIRUBIN ADULT 0.4 MG/DL (0.2-1.0)
[2016-09-01 02:05] LABS: POTASSIUM 5.2 MEQ/L (3.5-5.1)
[2016-09-01 02:07] LABS: BASOPHILS 1 % (0-2); EOSINOPHILS 3 % (0-4); NEUTROPHIL # MANUAL DIFF 8.2 TH/MM3 (1.8-7.7); POLYS (SEG NEUTROPHILS) 47 % (16-70); WBC DIFF SAMPLE 100
[2016-09-01 02:08] LABS: OVALOCYTES 1+ (NORMAL); PLATELET ESTIMATE SMEAR NORMAL (NORMAL); PLATELET MORPHOLOGY NORMAL (NORMAL); SCAN/DIFF FINAL DIFF MANUAL
[2016-09-01] MEDS ORDERED: NOREPINEPHRINE 4 MG/4 ML AMP ONE (02:27)
[2016-09-01 02:48] LABS: BLOOD GAS BASE EXCESS -5.5 mmol/L (-2-2); BLOOD GAS CARBOXYHEMOGLOBIN 3.3 % (0-4); BLOOD GAS HCO3 22 mmol/L (22-26); BLOOD GAS O2 HGB SATURATION 94 % (90-100); BLOOD GAS OXYGEN CONTENT 18.8 Vol % (12.0-20.0); BLOOD GAS PCO2 67 mmHg (38-42); BLOOD GAS PO2 130 mmHG (61-120); BLOOD GAS TOTAL HGB 14.2 G/DL (12.0-16.0); TEMP CORR TO 98.6
[2016-09-01 02:51] LABS: CRITICAL VALUE YES; OXYGEN DEVICE VENTILATOR
[2016-09-01 02:52] LABS: DRAW SITE RT BRACHIAL; FIO2 100 %; NUMBER OF ARTERIAL PUNCTURES 2; VENT SETTINGS PRVC
[2016-09-01 02:53] LABS: STAT NO
[2016-09-01] MEDS ORDERED: TERBUTALINE INJ 1 MG/ML AMP SQ PRN (04:45)
[2016-09-01] MEDS ORDERED: NOREPINEPHRINE-DEXTROSE DRIP 250 ML IV SCH (04:45)
[2016-09-01 04:48] LABS: BLOOD GAS BASE EXCESS -2.6 mmol/L (-2-2); BLOOD GAS CARBOXYHEMOGLOBIN 1.6 % (0-4); BLOOD GAS HCO3 23 mmol/L (22-26); BLOOD GAS METHEMOGLOBIN 0.8 % (0-2); BLOOD GAS O2 HGB SATURATION 98 % (90-100); BLOOD GAS OXYGEN CONTENT 18.4 Vol % (12.0-20.0); BLOOD GAS PCO2 45 mmHg (38-42); BLOOD GAS PO2 433 mmHG (61-120); BLOOD GAS TOTAL HGB 12.6 G/DL (12.0-16.0); TEMP CORR TO 98.6
[2016-09-01 04:49] LABS: CRITICAL VALUE NO; DRAW SITE RT RADIAL; FIO2 100 %; NUMBER OF ARTERIAL PUNCTURES 1; OXYGEN DEVICE VENTILATOR; VENT SETTINGS PRVC
[2016-09-01 04:50] LABS: STAT NO; ULNAR PULSE PRESENT
[2016-09-01] MEDS: CHLORHEXIDINE GLUCONATE 2 % 1 PACK (2 CLOTHS) TOP SCH (06:00)
[2016-09-01] MEDS: FUROSEMIDE 20 MG/2 ML VIAL IV PUSH SCH ×3 (06:22→16:56)
[2016-09-01] MEDS: HEPARIN SODIUM - SQ 10,000 UNITS/ML VIAL SQ SCH ×3 (06:22→20:48)
[2016-09-01] MEDS ORDERED: INSULIN ASPART SUPPLEMENTAL SCALE SQ SCH ×2 (07:00)
[2016-09-01] MEDS: amLODIPine BESYLATE 5 MG TAB PO SCH (07:51)
[2016-09-01] MEDS: PANTOPRAZOLE SOD 20 MG DELAYED RELEASE TAB PO SCH (08:00)
[2016-09-01] MEDS: ARTIFICIAL TEARS OPTH SOLN 15 ML BTL EACH EYE SCH ×3 (09:28→16:57)
[2016-09-01] MEDS: AMIODARONE 200 MG TAB PO SCH ×2 (09:28→20:47)
[2016-09-01] MEDS: MULTIVITAMINS/MINERALS THERAPEUTIC TAB PO SCH (09:29)
[2016-09-01] MEDS: BUMETANIDE 1 MG TAB PO SCH (09:29)
[2016-09-01] MEDS: PREGABALIN 75 MG CAP PO SCH ×2 (09:29→20:47)
[2016-09-01] MEDS: CLOPIDOGREL 75 MG TAB PO SCH (09:29)
[2016-09-01] MEDS: DOCUSATE SODIUM 50 MG/SENNA 8.6 MG TAB PO SCH ×2 (09:29→20:47)
[2016-09-01] MEDS: SODIUM CHLORIDE 0.9% FLUSH 10 ML FLUSH SCH ×2 (09:29→20:47)
[2016-09-01] MEDS: ASPIRIN EC 81 MG TABEC PO SCH (09:29)
--- NOTE | 2016-09-01 11:25 | RADRPT ---
EXAM DATE/TIME: 09/01/2016 10:27 [facility] COMPARISON: CHEST SINGLE AP, September 01, 2016, 1:02. INDICATIONS : Respiratory status. MEDICAL HISTORY : Diabetes mellitus type I. Neuropathy SURGICAL HISTORY : CABG. ENCOUNTER: Initial ACUITY: 1 day PAIN SCORE: Non-responsive. LOCATION: Bilateral upper chest FINDINGS: ET tube, nasogastric tube, pacemaker are in good position. Heart is enlarged. Mild interstitial chon ma is present. There is no alveolar consolidation, pleural effusion or pneumothorax. CONCLUSION: 1. Moderate congestive failure. 2. Support apparatus in good position. Frank Walters MD FACR on September 01, 2016 at 11:20 Board Certified Radiologist. This report was verified electronically.
[2016-09-01 11:39] LABS: BLOOD GAS BASE EXCESS -2.3 mmol/L (-2-2); BLOOD GAS CARBOXYHEMOGLOBIN 1.6 % (0-4); BLOOD GAS HCO3 22 mmol/L (22-26); BLOOD GAS METHEMOGLOBIN 1.2 % (0-2); BLOOD GAS O2 HGB SATURATION 96 % (90-100); BLOOD GAS OXYGEN CONTENT 15.7 Vol % (12.0-20.0); BLOOD GAS PCO2 40 mmHg (38-42); BLOOD GAS PO2 107 mmHg (61-120); BLOOD GAS TOTAL HGB 11.6 G/DL (12.0-16.0); CRITICAL VALUE NO; DRAW SITE RT RADIAL; FIO2 35 %; NUMBER OF ARTERIAL PUNCTURES 1; OXYGEN DEVICE VENTILATOR; STAT NO; TEMP CORR TO 98.6; ULNAR PULSE PRESENT; VENT SETTINGS CPAP 5/10PS
[2016-09-01 11:42] LABS: AUTOMATED NEUTROPHIL # 6.6 TH/MM3 (1.8-7.7); BASOPHIL # 0.2 TH/MM3 (0-0.2); BASOPHIL % 1.8 % (0.0-2.0); EOSINOPHIL # 0.2 TH/MM3 (0-0.4); EOSINOPHIL % 1.8 % (0.0-4.0); HEMATOCRIT 36.5 % (39.0-51.0); HEMO FLAGS DIFF FINAL; LYMPH % 27.7 % (9.0-44.0); MEAN CELL VOLUME 89.6 FL (80.0-100.0); MEAN CORPUSCULAR HEMOGLOBIN 28.7 PG (27.0-34.0); MONO % 7.4 % (0.0-8.0); NEUT % 61.3 % (16.0-70.0); PLATELET COUNT 229 TH/MM3 (150-450); RED BLOOD COUNT 4.07 MIL/MM3 (4.50-5.90); WHITE BLOOD COUNT 10.7 TH/MM3 (4.0-11.0)
[2016-09-01] MEDS: CARVEDILOL 3.125 MG TAB PO SCH ×2 (11:51→20:47)
[2016-09-01 12:09] LABS: ALKALINE PHOSPHATASE 122 U/L (45-117); ALT (GPT) 37 U/L (12-78); ANION GAP 8 MEQ/L (5-15); AST (GOT) 25 U/L (15-37); BICARBONATE 26.3 MEQ/L (21.0-32.0); BLOOD UREA NITROGEN 31 MG/DL (7-18); CHLORIDE 109 MEQ/L (98-107); GLOMERULAR FILTRATION RATE 44 ML/MIN (>89); POTASSIUM 4.3 MEQ/L (3.5-5.1); SODIUM (NA) 143 MEQ/L (136-145); TOTAL BILIRUBIN ADULT 0.2 MG/DL (0.2-1.0)
[2016-09-01] MEDS: INSULIN ASPART SUPPLEMENTAL SCALE SQ SCH ×2 (12:45→18:09)
[2016-09-01] MEDS: MORPHINE SULFATE 4 MG/ML INJ IV PRN ×5 (12:50→22:09)
--- NOTE | 2016-09-01 16:04 | EKG ---
Date Performed: 09/01/2016 Time Performed: 00:55:51 PTAGE: 65 years EKG: The underlying rhythm is difficult to discern. There is 100% ventricular pacing at 116 bpm. Cannot exclude atrial fibrillation with rapid rate behavior. Clinical correlation needed. The PREVI OUS TRACING showed P waves present. PREVIOUS TRACIN07/04/2016 11.44 DOCTOR: John Paul Aceves Interpretating Date/Time 09/01/2016 16:03:17
--- NOTE | 2016-09-01 16:07 | EKG ---
Date Performed: 09/01/2016 Time Performed: 08:04:25 PTAGE: 65 years EK% AV SEQUENTIAL PACING ABNORMAL RHYTHM ECG PREVIOUS TRACING : 09/01/2016 00.55 DOCTOR: John Paul Aceves Interpretating Date/Time 09/01/2016 16:06:10
--- NOTE | 2016-09-01 17:10 | EC ---
Study Study Date:09/01/2016 STUDY CONCLUSIONS SUMMARY - Left ventricle: The cavity size was normal. Wall thickness was normal. Systolic function was severely reduced. The estimated ejection fraction was in the range of 25% to 30%. Diffuse hypokinesis. - Mitral valve: Mild regurgitation. - Tricuspid valve: Mild regurgitation. If LV function is below 40, please consider prescribing an ACEI or ARB or document rationale for non-use. PROCEDURE DATA STUDY STATUS: Elective. Procedure: Transthoracic echocardiography. Image quality was good. Scanning was performed from the parasternal, apical, and subcostal acoustic windows. Study completion: The patient tolerated the procedure well. Transthoracic echocardiography. M-mode, complete 2D, complete spectral Doppler, and color Doppler. Patient status: Inpatient. CARDIAC ANATOMY LEFT VENTRICLE: The cavity size was normal. Wall thickness was normal. Systolic function was severely reduced. The estimated ejection fraction was in the range of 25% to 30%. Diffuse hypokinesis. AORTIC VALVE: Trileaflet; normal thickness leaflets. Doppler: Transvalvular velocity was within the normal range. There was no stenosis. No regurgitation. AORTA: Aortic root: The aortic root was normal in size. MITRAL VALVE: Structurally normal valve. Doppler: Transvalvular velocity was within the normal range. There was no evidence for stenosis. Mild regurgitation. LEFT ATRIUM: The atrium was normal in size. RIGHT VENTRICLE: The cavity size was normal. Wall thickness was normal. Pacer wire or catheter noted in right ventricle. PULMONIC VALVE: Doppler: Transvalvular velocity was within the normal range. There was no evidence for stenosis. No regurgitation. TRICUSPID VALVE: Structurally normal valve. Doppler: Transvalvular velocity was within the normal range. Mild regurgitation. PULMONARY ARTERY: The main pulmonary artery was normal-sized. Systolic pressure was within the normal range. RIGHT ATRIUM: The atrium was normal in size. PERICARDIUM: There was no pericardial effusion. SYSTEMIC VEINS: Inferior vena cava: The vessel was normal in size. BASIC MEASUREMENTS ADULT Normal Left ventricle LV internal dimension, ED, chordal level, 52 mm 43-52 PLAX LV internal dimension, ES, chordal level, *48 mm 23-38 PLAX Fractional shortening, chordal level, PLAX *8 % >29 LV posterior wall thickness, ED 11.2 mm IVS/LVPW ratio, ED *1.54 <1.3 Ventricular septum Septal thickness, ED 17.2 mm Aortic valve Leaflet separation 21 mm 15-26 Right ventricle RV internal dimension, ED, PLAX 36.4 mm 19-38 BASIC MEASUREMENTS ADULT Normal Aortic valve Leaflet separation 21 mm 15-26 Aorta Root diameter, ED 34 mm 20-37 Left atrium Anterior-posterior dimension, ES *42 mm 19-40 LA/aortic root ratio 1.24 DOPPLER MEASUREMENTS ADULT Normal Main pulmonary artery Pressure, S 27 mm Hg =30 Mitral valve Peak E-wave velocity 49.4 cm/s Peak A-wave velocity 43.2 cm/s Peak E/A ratio 1.1 Tricuspid valve Regurgitant peak velocity 208 cm/s Peak RV-RA gradient, S 17 mm Hg Maximal regurgitant velocity 208 cm/s Systemic veins Estimated CVP 10 mm Hg Right ventricle RV pressure, S 27 mm Hg <30 LEGEND: Mean values are shown as u=mean value. Asterisk (*) mckeon values outside specified normal range. Prepared and signed by Asher Meade [id number]
[2016-09-01] MEDS: ATORVASTATIN 80 MG TAB PO SCH (20:47)
[2016-09-02] VITALS (13 sets, daily range): BP systolic 100–128; BP diastolic 55–65; PULSE 69; RESP 15–20; TEMP 97.9–98.8; O2SAT 91–95
[2016-09-02] MEDS: FUROSEMIDE 20 MG/2 ML VIAL IV PUSH SCH (00:20)
[2016-09-02] MEDS: INSULIN ASPART SUPPLEMENTAL SCALE SQ SCH ×4 (00:22→18:20)
[2016-09-02] MEDS: MORPHINE SULFATE 4 MG/ML INJ IV PRN ×10 (02:55→22:32)
[2016-09-02] MEDS: CHLORHEXIDINE GLUCONATE 2 % 1 PACK (2 CLOTHS) TOP SCH (04:00)
[2016-09-02] MEDS: HEPARIN SODIUM - SQ 10,000 UNITS/ML VIAL SQ SCH ×3 (05:23→22:33)
--- NOTE | 2016-09-02 06:18 | RADRPT ---
EXAM DATE/TIME: 09/02/2016 04:10 [facility] COMPARISON: CHEST SINGLE AP, September 01, 2016, 10:27. INDICATIONS : Shortness of breath. MEDICAL HISTORY : Diabetes mellitus type I. Neuropathy. SURGICAL HISTORY : CABG. ENCOUNTER: Subsequent ACUITY: 1 week PAIN SCORE: 0/10 LOCATION: Bilateral chest FINDINGS: A single view of the chest demonstrates the lungs to be symmetrically aerated without evidence of mas s, infiltrate or effusion. Left subclavian pacer in numerous sternal wires are unchanged. The heart r emains enlarged. Much better aeration both lung bases. The cardiomediastinal contours are unremarkab le. Osseous structures are intact. CONCLUSION: Better aeration both lung bases. No significant focal infiltrate. Feliz Mariano MD on September 02, 2016 at 6:16 Board Certified Radiologist. This report was verified electronically.
[2016-09-02 06:29] LABS: AUTOMATED NEUTROPHIL # 5.2 TH/MM3 (1.8-7.7); BASOPHIL # 0.2 TH/MM3 (0-0.2); BASOPHIL % 1.8 % (0.0-2.0); EOSINOPHIL # 0.3 TH/MM3 (0-0.4); EOSINOPHIL % 3.1 % (0.0-4.0); HEMATOCRIT 33.8 % (39.0-51.0); HEMO FLAGS DIFF FINAL; LYMPHOCYTE # 3.4 TH/MM3 (1.0-4.8); MEAN CORPUSCULAR HEMOGLOBIN 29.3 PG (27.0-34.0); MEAN CORPUSCULAR HGB CONC 33.7 % (32.0-36.0); NEUT % 54.1 % (16.0-70.0); PLATELET COUNT 208 TH/MM3 (150-450); RED BLOOD COUNT 3.89 MIL/MM3 (4.50-5.90); RED CELL DISTRIBUTION WIDTH 17.6 % (11.6-17.2); WHITE BLOOD COUNT 9.7 TH/MM3 (4.0-11.0)
[2016-09-02 06:56] LABS: APTT (PATIENT) 31.3 SEC (24.3-30.1)
[2016-09-02 07:04] LABS: ALT (GPT) 30 U/L (12-78); ANION GAP 6 MEQ/L (5-15); AST (GOT) 20 U/L (15-37); BICARBONATE 26.7 MEQ/L (21.0-32.0); BLOOD UREA NITROGEN 38 MG/DL (7-18); CHLORIDE 104 MEQ/L (98-107); GLOMERULAR FILTRATION RATE 45 ML/MIN (>89); MAGNESIUM 1.7 MG/DL (1.5-2.5); POTASSIUM 4.1 MEQ/L (3.5-5.1); SODIUM (NA) 137 MEQ/L (136-145)
[2016-09-02 07:06] LABS: ALKALINE PHOSPHATASE 125 U/L (45-117); TOTAL BILIRUBIN ADULT 0.3 MG/DL (0.2-1.0)
[2016-09-02] MEDS: MULTIVITAMINS/MINERALS THERAPEUTIC TAB PO SCH (07:50)
[2016-09-02] MEDS: SODIUM CHLORIDE 0.9% FLUSH 10 ML FLUSH SCH ×2 (07:50→20:33)
[2016-09-02] MEDS: ARTIFICIAL TEARS OPTH SOLN 15 ML BTL EACH EYE SCH ×4 (07:50→18:00)
[2016-09-02] MEDS: PREGABALIN 75 MG CAP PO SCH ×2 (07:50→20:32)
[2016-09-02] MEDS: PANTOPRAZOLE SOD 20 MG DELAYED RELEASE TAB PO SCH (07:50)
[2016-09-02] MEDS: DOCUSATE SODIUM 50 MG/SENNA 8.6 MG TAB PO SCH ×2 (07:50→20:32)
[2016-09-02] MEDS: CARVEDILOL 3.125 MG TAB PO SCH ×2 (07:50→20:32)
[2016-09-02] MEDS: amLODIPine BESYLATE 5 MG TAB PO SCH (07:51)
[2016-09-02] MEDS: BUMETANIDE 1 MG TAB PO SCH (07:51)
[2016-09-02] MEDS: CLOPIDOGREL 75 MG TAB PO SCH (07:51)
[2016-09-02] MEDS: ASPIRIN EC 81 MG TABEC PO SCH (07:51)
[2016-09-02] MEDS: AMIODARONE 200 MG TAB PO SCH ×2 (07:51→20:32)
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
[2016-09-02] MEDS: ATORVASTATIN 80 MG TAB PO SCH (20:32)
[2016-09-02] MEDS ORDERED: INSULIN DETEMIR 100 UNITS/ML VIAL SQ SCH (21:00)
--- NOTE | 2016-09-02 21:46 | EKG ---
Date Performed: 09/01/2016 Time Performed: 13:41:36 PTAGE: 65 years EKG: ELECTRONIC ATRIAL PACEMAKER ELECTRONIC VENTRICULAR PACEMAKER Since previous tracing, no sig nificant change noted ABNORMAL RHYTHM ECG PREVIOUS TRACING : 09/01/2016 08.04 DOCTOR: Denise Madison Interpretating Date/Time 09/02/2016 21:44:47
--- NOTE | 2016-09-02 21:47 | EKG ---
Date Performed: 09/01/2016 Time Performed: 20:16:28 PTAGE: 65 years EKG: ELECTRONIC ATRIAL PACEMAKER ELECTRONIC VENTRICULAR PACEMAKER Since previous tracing, no sig nificant change noted ABNORMAL RHYTHM ECG PREVIOUS TRACING : 09/01/2016 13.41 DOCTOR: Denise Madison Interpretating Date/Time 09/02/2016 21:44:56
[2016-09-03 01:00] VITALS: BP 143/70; PULSE 70; RESP 16; TEMP 98; O2SAT 98
[2016-09-03] MEDS: INSULIN ASPART SUPPLEMENTAL SCALE SQ SCH ×3 (01:00→12:50)
[2016-09-03] MEDS: MORPHINE SULFATE 4 MG/ML INJ IV PRN ×6 (01:09→14:58)
[2016-09-03 04:00] VITALS: BP 106/54; PULSE 70; RESP 14; TEMP 98; O2SAT 98
[2016-09-03] MEDS: CHLORHEXIDINE GLUCONATE 2 % 1 PACK (2 CLOTHS) TOP SCH (04:00)
[2016-09-03] MEDS: HEPARIN SODIUM - SQ 10,000 UNITS/ML VIAL SQ SCH ×2 (05:47→12:48)
[2016-09-03 07:01] LABS: ANION GAP 8 MEQ/L (5-15); BICARBONATE 25.2 MEQ/L (21.0-32.0); BLOOD UREA NITROGEN 37 MG/DL (7-18); CHLORIDE 105 MEQ/L (98-107); GLOMERULAR FILTRATION RATE 56 ML/MIN (>89); POTASSIUM 4.3 MEQ/L (3.5-5.1); SODIUM (NA) 138 MEQ/L (136-145)
[2016-09-03 08:00] VITALS: BP 146/78; PULSE 70; PULSE 71; RESP 18; TEMP 97.9; O2SAT 94
[2016-09-03] MEDS: ARTIFICIAL TEARS OPTH SOLN 15 ML BTL EACH EYE SCH ×2 (08:39→12:53)
[2016-09-03] MEDS: BUMETANIDE 1 MG TAB PO SCH (08:39)
[2016-09-03] MEDS: DOCUSATE SODIUM 50 MG/SENNA 8.6 MG TAB PO SCH (08:39)
[2016-09-03] MEDS: AMIODARONE 200 MG TAB PO SCH (08:40)
[2016-09-03] MEDS: CARVEDILOL 3.125 MG TAB PO SCH (08:40)
[2016-09-03] MEDS: ASPIRIN EC 81 MG TABEC PO SCH (08:40)
[2016-09-03] MEDS: PREGABALIN 75 MG CAP PO SCH (08:40)
[2016-09-03] MEDS: amLODIPine BESYLATE 5 MG TAB PO SCH (08:40)
[2016-09-03] MEDS: PANTOPRAZOLE SOD 20 MG DELAYED RELEASE TAB PO SCH (08:40)
[2016-09-03] MEDS: CLOPIDOGREL 75 MG TAB PO SCH (08:40)
[2016-09-03] MEDS: MULTIVITAMINS/MINERALS THERAPEUTIC TAB PO SCH (08:40)
[2016-09-03] MEDS: SODIUM CHLORIDE 0.9% FLUSH 10 ML FLUSH SCH (08:41)
[2016-09-03 12:16] VITALS: BP 128/76; PULSE 70; PULSE 78; RESP 18; TEMP 97.7; O2SAT 94
--- NOTE | 2016-09-03 15:50 | HHI.FF ---
Face to Face Verification Diagnosis: (1) Pressure ulcer of right heel, unstageable (2) Congestive heart failure Physical Therapy Order: Evaluate and Treat Home Health Nursing Order: Medical education Signs/symptoms of disease process CHF education Medication education-adverse effect Wound care and dressing changes Pearl Fisherman Order: To Evaluate: Living conditions/environment, Support services Order: To Provide: Community services I have seen patient Buck Polo on 09/03/16. My clinical findings support the need for the requested home health care services because: Ltd mobility - disease progression Need for psychosocial assistance Infection w/ risk of complications I certify that my clinical findings support that this patient is homebound because: Need for psychosocial assistance Poor cardiac reserve Marie Alex MD Sep 03, 2016 15:49
--- NOTE | 2016-09-03 16:12 | HHI.PR ---
Subjective Remarks feels great- looks happily in love up and ambulating no shortness of breath no chest pains Objective Vitals Vital Signs Date Time Temp Pulse Resp B/P Pulse Ox O2 Delivery O2 Flow Rate FiO2 09/03/16 12:16 97.7 70 18 128/76 94 09/03/16 12:16 78 09/03/16 12:15 99 Nasal Cannula 2.00 09/03/16 08:00 97.9 71 18 146/78 94 09/03/16 08:00 70 09/03/16 08:00 93 Nasal Cannula 2.00 09/03/16 05:52 16 09/03/16 04:00 98 Nasal Cannula 2.00 09/03/16 04:00 70 09/03/16 04:00 98.0 70 14 106/54 98 09/03/16 01:00 70 09/03/16 01:00 98 Nasal Cannula 2.00 09/03/16 01:00 98.0 70 16 143/70 98 09/02/16 20:00 69 09/02/16 20:00 94 Nasal Cannula 2.00 09/02/16 20:00 97.9 69 15 108/60 94 09/02/16 19:44 93 Nasal Cannula 2.00 09/02/16 18:00 69 I/O 09/02/16 09/02/16 09/02/16 09/03/16 09/03/16 09/03/16 07:00 15:00 23:00 07:00 15:00 23:00 Intake Total 25 ml 1440 ml 48 ml 240 ml Output Total 1450 ml 1650 ml 425 ml 1000 ml Balance -1425 ml -210 ml -377 ml -760 ml Intake Oral 1440 ml 48 ml 240 ml IV Total 25 ml Output Urine Total 1450 ml 1650 ml 425 ml 1000 ml Stool Total 0 ml Result Diagram: 09/02/16 0456 09/03/16 0558 Imaging Last Impressions Chest X-Ray 09/02/16 0000 Signed Impressions: Service Date/Time: Friday, September 02, 2016 04:10 - CONCLUSION: Better aeration both lung bases. No significant focal infiltrate. Feliz Mariano MD Objective Remarks awake and alert, NAD anicteric regular rhythm lungs no rales or wheezes abdomens oft, nontender extremities no edema neuro exam non focal left heel- dry ulcer Date of Removal: Sep 02, 2016 A/P Assessment and Plan Respiratory failure - secondary to Acute PUlmonary edema - with underlying CMP S /P AICD -- known EF of 25-30 % =IMproved - S/P Mechanical ventilation- extubated 09/01 - continue diureses/BB/Amiodarone - discuss with patient avoid strenuous activity - consider adding FORTINO- when creatinine stabilizes- d/w him to speak with [facility] PCP/ carduiologist CAD - continue on ASA/Plavix/statin/BB -OP ff up with Property Management Specialist as OP- in [facility] Diabetes mellitus- insulin requiring - Insulin sliding scale - tolerating po - at home - averages about - Lantus on 5 -20 units HS - non compliant with diet - OP ff up with his Campus Aide - Dyslipidemia - Atorvastatin Diabetic neuropathy - Lyrica Left heel ulcer-chronic wound care- patient has regimen at home- ff by [facility] home health nurse Chronic kidney disease- creatinine stabiizing - Monitor urine output - Monitor electrolytes and creatinine levels -advise to ff up with Podiatry/OP [facility] mechanical planner and PCP diet- heart healthy,ADA diet activity as tolerated- avoid strenuous activity, too much excitement and wild sez meds- restart home meds DVT GI prophylaxis - Teds SCDs and subcutaneous heparin - Omeprazole Marie Alex MD Sep 03, 2016 16:12
[2016-09-03 16:21] VITALS: PULSE 89
[2016-09-03 16:22] VITALS: BP 127/83; PULSE 78; RESP 18; TEMP 97.6; O2SAT 94
[2016-09-03] MEDS ORDERED: PERC5TAB12 PO (16:23)
[2016-09-03 19:51] LABS: HEMOGLOBIN A1a 1.9 %; HEMOGLOBIN A1b 0.7 %; HEMOGLOBIN Ao 82.2 %; HEMOGLOBIN F 1.2 %; HEMOGLOBIN LA1C 1.7 %; HEMOGLOBIN P3 4.2 %
--- NOTE | 2016-09-16 11:53 | PQ ---
Physician Query Response Document PATIENT: SHAWN ROBERSON : 1950 ADMIT DATE: 09/01/2016 3:34 AM DISCH DATE: 09/03/2016 6:07 PM RESPONDING PROVIDER #: Katia QUERY TEXT: CHF Acuity and Type Congestive Heart Failure is documented in the Medical Record. Please document the type and acuity (in cludes probable or suspected) Such as: Type: -- Systolic -- Diastolic -- Combined -- Pulmonary Edema/Acute without CHF -- Other(please specify) Acuity: -- Acute -- Chronic -- Acute on chronic -- Other, please specify Also please document the underlying cause of the CHF (includes probable or suspected) The patient's Clinical Indicators include: Dr. ALEX, please clarify CHF/Pulmonary edema. ED physician documents chronic Systolic CHF EF25-3 0%--acute on chronic Systolic CHF. As attending you have documented Pulmonart Edema. Then later, unspecified CHF. Please review the below question and answer to the best of your ability. THANK YOU Query created by: Dieter Huang on 09/05/2016 5:11 AM RESPONSE TEXT: Acute systolic Heart failure QUERY TEXT: CHF Acuity and Type Congestive Heart Failure is documented in the Medical Record. Please document the type and acuity (in cludes probable or suspected) Such as: Type: -- Systolic -- Diastolic -- Combined -- Other, please specify Acuity: -- Acute -- Chronic -- Acute on chronic -- Other, please specify PLEASE CALL [facility] @ [facility] [id number] FOR ASSISTANCE The patient's Clinical Indicators include: PER H Congestive heart failure - Continue diuresis - Continue beta sj PER PROGRESS NOTE: Assessment and Plan Respiratory failure - secondary to Acute Pulmonary edema - with underlying CMP S/P AICD -- known EF o f 25-30 % 09/01/16 [id number] 09/01/16 CHEST X RAY REVEALS EARLY FAILURE Query created by: Lakeisha Ledesma on 09/03/2016 2:31 PM RESPONSE TEXT: Provider disagreed with this [facility] query. already responded Electronically signed by: Marie Alex MD 09/16/2016 11:49 AM
== END 2016-09-03 18:07 | disposition home health service (06) | DRG 208 ==
LOC: NEPC 00:37 → NEDA 03:34 → HIME 05:45 → HCIS 09-03 00:22
PROVIDERS: ADMIT Hospitalist; ATTEND Hospitalist
PROC: 5A1935Z Respiratory Ventilation, Less than 24 Consecutive Hours (ICD-10-PCS; principal; 2016-09-01)
PROC: 0BH17EZ Insertion of Endotracheal Airway into Trachea, Via Natural or Artificial Opening (ICD-10-PCS; 2016-09-01)
PROC: 06HM33Z Insertion of Infusion Device into Right Femoral Vein, Percutaneous Approach (ICD-10-PCS; 2016-09-01)
PROC: 0T9B70Z Drainage of Bladder with Drainage Device, Via Natural or Artificial Opening (ICD-10-PCS; 2016-09-01)
DX: J96.01 Acute respiratory failure with hypoxia (principal); I50.21 Acute systolic (congestive) heart failure; E11.22 Type 2 diabetes mellitus with diabetic chronic kidney disease; I48.91 Unspecified atrial fibrillation; I13.0 Hypertensive heart and chronic kidney disease with heart failure and stage 1 through stage 4 chronic kidney disease, or unspecified chronic kidney disease; K31.84 Gastroparesis; E11.43 Type 2 diabetes mellitus with diabetic autonomic (poly)neuropathy; N18.2 Chronic kidney disease, stage 2 (mild); I25.10 Atherosclerotic heart disease of native coronary artery without angina pectoris; I25.2 Old myocardial infarction; F17.210 Nicotine dependence, cigarettes, uncomplicated; E78.5 Hyperlipidemia, unspecified; I73.9 Peripheral vascular disease, unspecified; Z79.4 Long term (current) use of insulin; Z91.11 Patient's noncompliance with dietary regimen; Z95.1 Presence of aortocoronary bypass graft; Z95.5 Presence of coronary angioplasty implant and graft; Z95.810 Presence of automatic (implantable) cardiac defibrillator
CPT/HCPCS: 31500; 36556; 36600; 51702; 71010; 80048; 80053; 81001; 82550; 82805; 82948; 83036; 83735; 83880; 84100; 84443; 84484; 85007; 85025; 85027; 85610; 85730; 87040; 87641; 93005; 93306; 94002; 94620; 94664; 96365; 96366; 96368; J1644; J1815; J1940; J2270; J3010

== ENCOUNTER 2016-10-22 12:22 | Inpatient (IN) | payer OTHER ==
[~2016-10-22] VITALS: Ht 177.8 cm; Wt 80.0 kg
[~2016-10-22 12:22] MED LIST changes: -OXYC20TA17 PO; +PERC5TAB12 PO
[2016-10-22 12:48] VITALS: BP 107/62; PULSE 78; RESP 20; TEMP 98.2; O2SAT 98
[2016-10-22] MEDS ORDERED: BUME1TAB PO (12:56)
[2016-10-22] MEDS ORDERED: SODIUM CHLOR 0.9% 1000 ML INJ 1,000 ML IV ONE ×2 (13:18→15:30)
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
[2016-10-22 13:28] VITALS: O2SAT 98
[2016-10-22] MEDS ORDERED: SODIUM CHLORIDE 0.9% FLUSH 10 ML FLUSH IVF PRN (13:30)
[2016-10-22 13:56] VITALS: BP 109/56; PULSE 60; RESP 20
[2016-10-22 14:04] LABS: BASOPHIL # 0.1 TH/MM3 (0-0.2); EOSINOPHIL # 0.2 TH/MM3 (0-0.4); EOSINOPHIL % 1.2 % (0.0-4.0); HEMATOCRIT 32.6 % (39.0-51.0); HEMO FLAGS DIFF FINAL; LYMPH % 13.8 % (9.0-44.0); LYMPHOCYTE # 1.7 TH/MM3 (1.0-4.8); MEAN CELL VOLUME 89.7 FL (80.0-100.0); MEAN CORPUSCULAR HGB CONC 32.3 % (32.0-36.0); MONO % 4.8 % (0.0-8.0); NEUT % 79.2 % (16.0-70.0); PLATELET COUNT 185 TH/MM3 (150-450); RED BLOOD COUNT 3.64 MIL/MM3 (4.50-5.90); RED CELL DISTRIBUTION WIDTH 16.4 % (11.6-17.2); WHITE BLOOD COUNT 12.6 TH/MM3 (4.0-11.0)
[2016-10-22] MEDS ORDERED: MORPHINE SULFATE 4 MG/ML INJ IV ONE (14:15)
--- NOTE | 2016-10-22 14:15 | RADRPT ---
EXAM DATE/TIME: 10/22/2016 13:32 [facility] COMPARISON: CHEST SINGLE AP, September 02, 2016, 4:10. INDICATIONS : Palpitations, low bp. MEDICAL HISTORY : Diabetes mellitus type II. Congestive heart failure. SURGICAL HISTORY : Pacemaker. CABG. ENCOUNTER: Initial ACUITY: 1 day PAIN SCORE: 0/10 LOCATION: Bilateral chest FINDINGS: A single view of the chest demonstrates the lungs to be symmetrically aerated without evidence of mas s, infiltrate or effusion. Pacemaker and lines are in previous bypass are noted. There is mild comp ensated cardiomegaly. . Osseous structures are intact. CONCLUSION: Pacer, previous bypass, mild compensated cardiomegaly. Frank Walters MD FACR on October 22, 2016 at 14:13 Board Certified Radiologist. This report was verified electronically.
[2016-10-22 14:21] LABS: ANION GAP 14 MEQ/L (5-15)
[2016-10-22 14:22] VITALS: BP 102/52; PULSE 62; RESP 20
[2016-10-22 14:25] LABS: ALKALINE PHOSPHATASE 123 U/L (45-117); ALT (GPT) 22 U/L (12-78); AST (GOT) 15 U/L (15-37); BICARBONATE 15.1 MEQ/L (21.0-32.0); BLOOD UREA NITROGEN 79 MG/DL (7-18); CALCIUM-PROTEIN CORRECTED 7.8 MG/DL (8.5-10.1); CHLORIDE 108 MEQ/L (98-107); CREATINE KINASE 122 U/L (39-308); GLOMERULAR FILTRATION RATE 11 ML/MIN (>89); SODIUM (NA) 137 MEQ/L (136-145); TOTAL BILIRUBIN ADULT 0.2 MG/DL (0.2-1.0)
[2016-10-22 14:38] LABS: POTASSIUM 4.1 MEQ/L (3.5-5.1)
[2016-10-22 14:51] LABS: CKMB 4.3 NG/ML (0.5-3.6)
[2016-10-22] MEDS ORDERED: ACETAMINOPHEN 325 MG TAB PO PRN (15:30)
[2016-10-22] MEDS ORDERED: GLUCAGON 1 MG/ML VIAL OTHER PRN (15:30)
--- NOTE | 2016-10-22 15:30 | RADRPT ---
EXAM DATE/TIME: 10/22/2016 15:05 [facility] COMPARISON: No previous studies available for comparison. INDICATIONS : Episode of bilateral vision loss today. RADIATION DOSE: 36.29 CTDIvol (mGy) MEDICAL HISTORY : Cardiovascular disease. Hypertension. Diabetes mellitus type 2. SURGICAL HISTORY : CABG ENCOUNTER: Initial ACUITY: 1 day PAIN SCALE: 0/10 LOCATION: cranial TECHNIQUE: Multiple contiguous axial images were obtained of the head. Using automated exposure control and adj ustment of the mA and/or kV according to patient size, radiation dose was kept as low as reasonably a chievable to obtain optimal diagnostic quality images. DICOM format image data is available electro nically for review and comparison. FINDINGS: CEREBRUM: The ventricles are normal for age. No evidence of midline shift, mass lesion, hemorrhage or acute in farction. No extra-axial fluid collections are seen. POSTERIOR FOSSA: The cerebellum and brainstem are intact. The 4th ventricle is midline. The cerebellopontine angle i s unremarkable. EXTRACRANIAL: The visualized portion of the orbits is intact. SKULL: The calvaria is intact. No evidence of skull fracture. CONCLUSION: No acute disease. Frank Walters MD FACR on October 22, 2016 at 15:28 Board Certified Radiologist. This report was verified electronically.
--- NOTE | 2016-10-22 15:54 | HHI.HP ---
[facility] Service [facility] Primary Care Physician [facility] Admission Diagnosis Acute on chronic kidney disease, anemia, near syncope, paced rhythm Diagnoses: (1) Acute kidney injury Diagnosis: Principal Chief Complaint: dizziness Travel History International Travel<30 Days: No Contact w/Intl Traveler <30 Da: No Traveled to Known Affected Are: No History of Present Illness patient is a 66 y/o male with history of CAD, CHF, hypertension, diabetes mellitus and chronic renal insufficiency who was brought to ER with dizziness. he says that he was driving his mother tho her doctor's office this afternoon when he started to feel dizzy and lightheaded. he says that he almost passed out. he says that because of his CHF the dose of his Bumex was increased recently. he denies any chest pain, sob,diarrhea, vomiting, fever. his systolic BP was reportedly in 70's which improved after IV fluid. he's also complaining of some pain to the right foot wound which is being followed up by his summer law associate. Review of Systems Constitutional: COMPLAINS OF: Dizziness, DENIES: Fever, Weight loss, Chills, Night Sweats Eyes: DENIES: Blurred vision, Diplopia, Vision loss, Double Vision Ears, nose, mouth, throat: DENIES: Tinnitus, Vertigo, Throat pain, Epistaxis Respiratory: DENIES: Apneas, Cough, Snoring, Wheezing, Hemoptysis, Sputum production, Shortness of breath Cardiovascular: DENIES: Chest pain, Palpitations, Syncope, Dyspnea on Exertion , PND, Lower Extremity Edema, Orthopnea, Claudication Gastrointestinal: DENIES: Abdominal pain, Black stools, Bloody stools, Constipation, Diarrhea, Nausea, Vomiting, Difficulty Swallowing, Anorexia Genitourinary: DENIES: Urinary frequency, Urgency, Hematuria, Dysuria Musculoskeletal: COMPLAINS OF: Joint pain (right foot.), DENIES: Muscle aches , Stiffness, Joint Swelling Integumentary: DENIES: Rash Neurologic: DENIES: Abnormal gait, Headache, Localized weakness, Paresthesias, Seizures, Speech Problems, Tremor, Poor Balance Psychiatric: DENIES: Anxiety, Confusion, Mood changes, Depression, Hallucinations, Agitation, Suicidal Ideation, Homicidal Ideation, Delusions Past Family Social History Past Medical History CAD hypertension diabetes mellitus CHF renal insufficiency Past Surgical History CABG/stent placement pacer placement Reported Medications Amiodarone (Amiodarone HCl) 200 Mg Tab 200 Mg PO BID Coreg (Carvedilol) 3.125 Mg Tab 3.125 Mg PO Q12HR 30 Days Norvasc (Amlodipine Besylate) 5 Mg Tab 2.5 Mg PO DAILY 30 Days Bumetanide 1 Mg Tab 2 Mg PO BID Lyrica (Pregabalin) 75 Mg Cap 75 Mg PO BID Omeprazole 20 Mg Tab 20 Mg PO DAILY Atorvastatin (Atorvastatin Calcium) 80 Mg Tab 80 Mg PO HS Aspirin EC (Aspirin) 81 Mg Tabdr 81 Mg PO DAILY Allergies: Coded Allergies: No Known Allergies (Unverified , 07/04/16) Active Ordered Medications Current Medications Sodium Chloride 2 ml 2 ml UNSCH PRN IVF FLUSH AFTER USING IV ACCESS; Start at 13:30 Sodium Chloride (NS 1000 ml Inj) 1,000 ml @ 125 mls/hr Q8H ONCE IV Last administered on 10/22/16 13:22; Start 10/22/16 at 13:18; Stop 10/22/16 at 21:17 Morphine Sulfate (Morphine Inj) 4 mg ONCE ONCE IV Last administered on 14:12; Start 10/22/16 at 14:15; Stop 10/22/16 at 14:16; Status DC Family History not significant. Social History smokes a few cigarettes a day- doesn't drink. Physical Exam Vital Signs Vital Signs Date Time Temp Pulse Resp B/P Pulse Ox O2 Delivery O2 Flow Rate FiO2 10/22/16 14:22 62 20 102/52 10/22/16 13:56 60 20 109/56 10/22/16 13:28 98 10/22/16 12:48 98.2 78 20 107/62 98 Physical Exam GENERAL: This is a well-nourished, well-developed patient, in no apparent distress. SKIN: dry wound noted on the right heel HEAD: Atraumatic. Normocephalic. No temporal or scalp tenderness. EYES: Pupils equal round and reactive. Extraocular motions intact. No scleral icterus. No injection or drainage. ENT: Nose without bleeding, purulent drainage or septal hematoma. Throat without erythema, tonsillar hypertrophy or exudate. Uvula midline. Airway patent. NECK: Trachea midline. No JVD or lymphadenopathy. Supple, nontender, no meningeal signs. CARDIOVASCULAR: Regular rate and rhythm without murmurs, gallops, or rubs. RESPIRATORY: Clear to auscultation. Breath sounds equal bilaterally. No wheezes , rales, or rhonchi. GASTROINTESTINAL: Abdomen soft, non-tender, nondistended. No hepato-splenomegaly , or palpable masses. No guarding. MUSCULOSKELETAL: Extremities without clubbing, cyanosis, or edema. No joint tenderness, effusion, or edema noted. No calf tenderness. Negative Homans sign bilaterally. NEUROLOGICAL: Awake and alert. Cranial nerves II through XII intact. Motor and sensory grossly within normal limits. Five out of 5 muscle strength in all muscle groups. Normal speech. Laboratory Laboratory Tests Test 10/22/16 13:35 White Blood Count 12.6 Red Blood Count 3.64 Hemoglobin 10.5 Hematocrit 32.6 Mean Corpuscular Volume 89.7 Mean Corpuscular Hemoglobin 29.0 Mean Corpuscular Hemoglobin 32.3 Concent Red Cell Distribution Width 16.4 Platelet Count 185 Mean Platelet Volume 8.8 Neutrophils (%) (Auto) 79.2 Lymphocytes (%) (Auto) 13.8 Monocytes (%) (Auto) 4.8 Eosinophils (%) (Auto) 1.2 Basophils (%) (Auto) 1.0 Neutrophils # (Auto) 10.0 Lymphocytes # (Auto) 1.7 Monocytes # (Auto) 0.6 Eosinophils # (Auto) 0.2 Basophils # (Auto) 0.1 CBC Comment DIFF FINAL Differential Comment Sodium Level 137 Potassium Level 4.1 Chloride Level 108 Carbon Dioxide Level 15.1 Anion Gap 14 Blood Urea Nitrogen 79 Creatinine 5.27 Estimat Glomerular Filtration 11 Rate Random Glucose 206 Calcium Level 7.4 Protein Corrected Calcium 7.8 Total Bilirubin 0.2 Aspartate Amino Transf 15 (AST/SGOT) Alanine Aminotransferase 22 (ALT/SGPT) Alkaline Phosphatase 123 Total Creatine Kinase 122 Creatine Kinase MB 4.3 Troponin I LESS THAN 0.02 Total Protein 6.3 Albumin 3.0 Result Diagram: 10/22/16 1335 10/22/16 1335 Imaging Last Impressions Head CT 10/22/16 1318 Signed Impressions: Service Date/Time: Saturday, October 22, 2016 15:05 - CONCLUSION: No acute disease. Frank Walters MD FACR Chest X-Ray 10/22/16 1318 Signed Impressions: Service Date/Time: Saturday, October 22, 2016 13:32 - CONCLUSION: Pacer, previous bypass, mild compensated cardiomegaly. Farnk Walters MD FACR Assessment and Plan Assessment and Plan A/P - acute kidney injury superimposed on chronic renal insufficiency continue with gentle IV hydration in light of his history of CHF- monitor I/O and renal function- consult nephrology -CAD- s/p CABG; continue aspirin and statin- hold BB due to hypotension -CHF- chronic diastolic- compensated; hold bumex for now due to KAMARI -diabetes mellitus; accu-check with SSI -wound on the right heel- consult wound care -DVT prophylaxis with subq Heparin Discussed Condition With ER physician and the patient. Physician Certification 2 Midnight Certification Type: Admission for Inpatient Services Order for Inpatient Services The services are ordered in accordance with Medicare regulations or non- Medicare payer requirements, as applicable. In the case of services not specified as inpatient-only, they are appropriately provided as inpatient services in accordance with the 2-midnight benchmark. Estimated LOS (days): 2 days is the estimated time the patient will need to remain in the hospital, assuming treatment plan goals are met and no additional complications. Post-Hospital Plan: Home Tru Francis MD Oct 22, 2016 15:54
[2016-10-22] MEDS: INSULIN ASPART SUPPLEMENTAL SCALE SQ SCH ×2 (15:59→20:09)
[2016-10-22] MEDS ORDERED: DEXTROSE 50% IN WATER 50 ML SYRINGE IV PRN (16:00)
[2016-10-22] MEDS: oxyCODONE/ACETAMINOPHEN 5 MG/325 MG TAB PO PRN (16:58)
[2016-10-22 17:46] VITALS: BP 109/62; PULSE 75; RESP 20
[2016-10-22 20:00] VITALS: BP 113/56; PULSE 60; RESP 18; TEMP 97.1; O2SAT 98
[2016-10-22] MEDS: HYDROmorphone HCL PF 1 MG/ML VIAL IV PUSH PRN (20:00)
[2016-10-22] MEDS: ATORVASTATIN 80 MG TAB PO SCH (20:14)
[2016-10-22] MEDS: AMIODARONE 200 MG TAB PO SCH (20:14)
[2016-10-22] MEDS: PREGABALIN 25 MG CAP PO SCH (21:56)
[2016-10-23] VITALS (8 sets, daily range): BP systolic 87–116; BP diastolic 51–60; PULSE 60–61; RESP 16–18; TEMP 96–97.4; O2SAT 92–97
[2016-10-23 00:01] LABS: BLOOD, URINE NEG (NEG); COMMENT (UR) CULT NOT INDICATED; CULTURE IF INDICATED CULT NOT INDICATED; GLUCOSE,URINE NEG (NEG); HYALINE CAST, URINE 8 /lpf (RARE); KETONE, URINE NEG (NEG); NITRITE,URINE NEG (NEG); RENAL EPITHELIAL CELLS <1 /hpf; URINE COLOR YELLOW (YELLW/STRAW)
--- NOTE | 2016-10-23 00:20 | RADRPT ---
EXAM DATE/TIME: 10/22/2016 23:55 [facility] COMPARISON: CHEST SINGLE AP, October 22, 2016, 13:32. INDICATIONS : Shortness of breath. MEDICAL HISTORY : Diabetes mellitus type II. Congestive heart failure. SURGICAL HISTORY : Pacemaker. CABG. ENCOUNTER: Subsequent ACUITY: 1 day PAIN SCORE: 0/10 LOCATION: Bilateral chest FINDINGS: Portable AP view of the chest demonstrates a normal-sized cardiac silhouette with calcification of ao rta with tortuous descending thoracic aorta. Patient is post median sternotomy. Left chest wall cardi ac pacing device remains present. Lungs are underinflated with atelectasis at the bases. No effusion, consolidation, or pneumothorax is identified. Bones and soft tissues demonstrate no acute finding. CONCLUSION: No acute cardiopulmonary abnormality is identified. Florencio Robert MD on October 23, 2016 at 0:16 Board Certified Radiologist. This report was verified electronically.
[2016-10-23] MEDS: oxyCODONE/ACETAMINOPHEN 5 MG/325 MG TAB PO PRN ×4 (01:23→22:12)
[2016-10-23] MEDS: HYDROmorphone HCL PF 1 MG/ML VIAL IV PUSH PRN (02:28)
--- NOTE | 2016-10-23 05:29 | MB ---
cc: RAND LYNNE MD DATE OF CONSULTATION 10/22/2016 REASON FOR CONSULTATION Acute kidney injury with elevated BUN and creatinine. HISTORY OF PRESENT ILLNESS This is a 66-year-old male with a past medical history of hypertension, diabetes mellitus, ischemic heart disease, congestive heart failure, chronic kidney disease. He came to the hospital with complaint of dizziness and near-syncope. I was called to see the patient because of elevated BUN and creatinine. The patient has a history of chronic kidney disease and he had acute kidney injury in the past. Baseline creatinine probably close to 1.3-1.5 and now came in with a creatinine of 5.2. The patient was seen by me when he was admitted here in May and at that time he also had acute kidney injury and his kidney function improved. [facility] He has had loose bowel motions going on for one week, did not notice any decrease in the urine output but today when he was driving he started feeling lightheaded and feeling dizzy and when he came in here it was found that his blood pressure was on the lower side and his systolic blood pressure was in the 70s which improved after giving the IV fluids. The patient also has an ulcer in the right heel which happened recently and has been following with the [employer] and was given some antibiotics and he was taking Percocet. Denies taking any nonsteroidal anti-inflammatory drugs. He does not remember the name of the antibiotic. He was taking Bumex at home. PAST MEDICAL HISTORY 1. Hypertension. 2. Diabetes mellitus. 3. Ischemic heart disease. 4. Congestive heart failure. 5. Chronic kidney disease. PAST SURGICAL HISTORY 1. History of coronary artery bypass grafting and history of cardiac cath with stent placement. 2. History of pacemaker insertion. REVIEW OF SYSTEMS The patient has generalized weakness, feeling tired, has off and on dizzy episodes going on since morning. He had a loose bowel motions, two to three per day going on for the last one week. Denies any nausea or vomiting. No abdominal pain. No history of fever. No dysuria, hematuria. Did not notice any decrease in A&O. He is not taking any nonsteroidal anti-inflammatory drugs. No shortness of breath. No chest pain. SOCIAL HISTORY The patient is a smoker. He is cutting down now and he smokes a few cigarettes a day. There is no history of heavy alcoholism. FAMILY HISTORY Noncontributory. ALLERGIES He has no known drug allergies. MEDICATIONS CURRENTLY 1. Amiodarone 200 mg b.i.d. 2. Aspirin 81 mg once a day. 3. Protonix 20 mg daily. 4. Lipitor 80 mg q.h.s. 5. Lyrica 25 mg q.h.s. 6. IV fluids - he is getting normal saline at 125 an hour. 7. Percocet as needed. PHYSICAL EXAMINATION GENERAL: The patient is awake, alert. He is not in acute distress. VITAL SIGNS: Blood pressure is 109/62, temperature is 98.2, oxygen saturation 98% on room air. HEENT: Pupils equally reacting to light. Nonicteric sclerae. Conjunctivae normal. NECK: Supple. JVD is not elevated. LUNGS: The patient has bilateral good air entry with occasional wheezing. HEART: S1, S2. Regular rhythm. ABDOMEN: Distended, soft, lax. There is no tenderness. Bowel sounds positive. EXTREMITIES: There is no pedal edema. INVESTIGATIONS WBC count is 12.6, hemoglobin 10.5, platelet count 185. Sodium 137, potassium 4.1, chloride 108, bicarb 15.1, BUN 79, creatinine 5.27, calcium is 7.8, AST and ALT normal. Alkaline phosphatase is 123. Troponin I is less than 0.02. Total protein is 6.8, albumin 3.0. INR is 1.0. Urinalysis showing protein of 100. This was done during last admission during last month. IMAGING STUDIES The patient has chest x-ray done which shows mild cardiomegaly. CT scan of the brain was done without IV contrast and shows no acute lesion. ASSESSMENT AND PLAN 1. Acute kidney injury. 2. Hypotension and dehydration. 3. Metabolic acidosis. 4. History of ischemic heart disease, congestive heart failure. 5. Diabetes mellitus. 6. Anemia. The patient has chronic kidney disease most likely hypertensive or diabetic nephropathy and developed now acute kidney injury. The differential diagnosis of acute kidney injury will be ATN from the hypotension, the possibility of ATN or interstitial nephritis from either infection or because of medications, antibiotic-related. At present the patient is getting IV fluids. His blood pressure seems to be improving. Follow the urine output, BUN and creatinine. I will check the urine sodium and osmolality. Avoid any nephrotoxins. Thank you for the consultation and I will follow the patient while he is in the hospital. MD TAM Burden/SSB /8:03 PM /5:08 AM
[2016-10-23 06:17] LABS: BICARBONATE 17.4 MEQ/L (21.0-32.0); POTASSIUM 4.2 MEQ/L (3.5-5.1)
[2016-10-23] MEDS: INSULIN ASPART SUPPLEMENTAL SCALE SQ SCH ×4 (06:18→22:18)
[2016-10-23] MEDS: AMIODARONE 200 MG TAB PO SCH ×2 (08:07→22:12)
[2016-10-23] MEDS: ASPIRIN EC 81 MG TABEC PO SCH (08:07)
[2016-10-23] MEDS: PANTOPRAZOLE SOD 20 MG DELAYED RELEASE TAB PO SCH (08:07)
--- NOTE | 2016-10-23 11:11 | HHI.PR ---
Subjective Remarks in no acute distress. no sob. no chest pain. d/w the RN and no acute issues over night. Objective Vitals Vital Signs Date Time Temp Pulse Resp B/P Pulse Ox O2 Delivery O2 Flow Rate FiO2 10/23/16 08:00 96.6 61 17 97/54 93 10/23/16 04:00 96.6 60 18 110/51 93 10/23/16 02:30 60 111/60 10/23/16 01:27 99/52 10/23/16 00:00 97.4 60 18 87/53 95 10/22/16 20:00 97.1 60 18 113/56 98 10/22/16 17:46 75 20 109/62 10/22/16 14:22 62 20 102/52 10/22/16 13:56 60 20 109/56 10/22/16 13:28 98 10/22/16 12:48 98.2 78 20 107/62 98 I/O 10/22/16 10/22/16 10/22/16 10/23/16 10/23/16 10/23/16 07:00 15:00 23:00 07:00 15:00 23:00 Intake Total 360 ml 240 ml Output Total 400 ml Balance -40 ml 240 ml Intake Oral 360 ml 240 ml IV Total 0 ml Output Urine Total 400 ml # Voids 2 # Bowel Movements 0 0 Result Diagram: 10/22/16 1335 10/23/16 0514 Imaging Last Impressions Head CT 10/22/16 1318 Signed Impressions: Service Date/Time: Saturday, October 22, 2016 15:05 - CONCLUSION: No acute disease. Frank Walters MD FACR Chest X-Ray 10/22/168 Signed Impressions: Service Date/Time: Saturday, October 22, 2016 13:32 - CONCLUSION: Pacer, previous bypass, mild compensated cardiomegaly. Frank Walters MD FACR Objective Remarks GENERAL: This is a well-nourished, well-developed patient, in no apparent distress. CARDIOVASCULAR: Regular rate and regular rhythm without murmurs, gallops, or rubs. RESPIRATORY: Clear to auscultation. Breath sounds equal bilaterally. No wheezes , rales, or rhonchi. GASTROINTESTINAL: Abdomen soft, non-tender, nondistended. Normal, active bowel sounds MUSCULOSKELETAL: Extremities without clubbing, cyanosis, or edema. NEURO: Alert & Oriented x4 to person, place, time, situation. Moves all ext x4 skin; wound on the right heel. Medications and IVs Current Medications Sodium Chloride 2 ml 2 ml UNSCH PRN IVF FLUSH AFTER USING IV ACCESS; Start at 13:30 Sodium Chloride (NS 1000 ml Inj) 1,000 ml @ 125 mls/hr Q8H ONCE IV Last administered on 10/22/16 13:22; Start 10/22/16 at 13:18; Stop 10/22/16 at 21:17 ; Status DC Morphine Sulfate (Morphine Inj) 4 mg ONCE ONCE IV Last administered on 14:12; Start 10/22/16 at 14:15; Stop 10/22/16 at 14:16; Status DC Dextrose (D50w (Syr) Inj) 50 ml UNSCH PRN IV HYPOGLYCEMIA-SEE COMMENTS; Start 10/22/16 at 16:00 Glucagon (Glucagon Inj) 1 mg UNSCH PRN OTHER HYPOGLYCEMIA-SEE COMMENTS; Start 10/22/16 at 15:30 Insulin Aspart 1 1 ACHS SLIDING SCALE SQ Last administered on 10/23/16 06:18 ; Start 10/22/16 at 16:00 Sodium Chloride (NS 1000 ml Inj) 1,000 ml @ 60 mls/hr [id number] ONCE IV Last administered on 10/22/16 15:53; Start 10/22/16 at 15:30; Stop 10/23/16 at 08:09 ; Status DC Oxycodone/ Acetaminophen (Percocet 5-325 Mg) 1 tab Q6H PRN PO PAIN 4-10 Last administered on 10/23/16 06:42; Start 10/22/16 at 15:30 Acetaminophen (Tylenol) 650 mg Q4H PRN PO FEVER/PAIN 1-3; Start 10/22/16 at 15: 30 Amiodarone HCl (Cordarone) 200 mg BID PO Last administered on 10/23/16 08:07; Start 10/22/16 at 21:00 Aspirin (Ecotrin Ec) 81 mg DAILY PO Last administered on 10/23/16 08:07; Start 10/23/16 at 09:00 Atorvastatin Calcium (Lipitor) 80 mg HS PO Last administered on 10/22/16 20:14 ; Start 10/22/16 at 21:00 Pregabalin (Lyrica) 25 mg HS PO Last administered on 10/22/16 21:56; Start at 21:00 Pantoprazole Sodium (Protonix) 20 mg DAILY PO Last administered on 10/23/16 08 :07; Start 10/23/16 at 09:00 Hydromorphone HCl (Dilaudid Pf Inj) 0.2 mg Q4H PRN IV PUSH BREAKTHROUGH PAIN Last administered on 10/23/16 02:28; Start 10/22/16 at 19:00 A/P Assessment and Plan A/P - acute kidney injury superimposed on chronic renal insufficiency continue with gentle IV hydration in light of his history of CHF- monitor I/O and renal function- nephrology consult appreciated. -CAD- s/p CABG; continue aspirin and statin- hold BB due to hypotension -CHF- chronic diastolic- compensated; hold bumex for now due to KAMARI -diabetes mellitus; accu-check with SSI -wound on the right heel- consulted wound care -DVT prophylaxis with subq Heparin Discharge Planning dc home within the next one-two days if renal function improves. Tru Francis MD Oct 23, 2016 11:11
[2016-10-23] MEDS ORDERED: SODIUM CHLOR 0.9% 1000 ML INJ 1,000 ML IV ONE (11:15)
--- NOTE | 2016-10-23 13:01 | EKG ---
Date Performed: 10/22/2016 Time Performed: 12:51:46 PTAGE: 66 years EKG: ELECTRONIC ATRIAL PACEMAKER ELECTRONIC VENTRICULAR PACEMAKER ST DEPRESSION, CONSIDER SUBEND OCARDIAL INJURY ABNORMAL ECG PREVIOUS TRACING : 09/01/2016 20.16 DOCTOR: Asher Meade Interpretating Date/Time 10/23/2016 12:55:58
--- NOTE | 2016-10-23 15:16 | PD.WCN.NOT ---
Wound Consult Description: Consult for WOUND MANAGEMENT of right foot per Dr Francis Communicated with: Patient Dr Francis Recommendation: Cleanse right heel with with NS every 3 days and PRN for soiling or dislodgment Lightly pack wound with Maxorb extra AG Cover with OptiFoam cut to surround wound Cover with dry cover Additional Information: Patient known to global technical writer and seen on [address] for right heel wound. Rolled gauze and 4x4 removed from right heel to reveal an unstagable pressure injury measuring 1.3cm x 0.8cm x 0.8cm (which is smaller than noted on last admission) of ~95% loosely adherent yellow slough and ~5% pink tissue noted to wound bed. There is scant yellow thick exudate noted to removed dressing. Wound was cleansed with NS and gauze/qtip before obtaining supplies from [facility] for dressing change. Patient states he has been having it packed and covered for 5-7 days at the OR. Supplies were ordered and obtained from [facility] for packing. Maxorb AG was cut in a strip form to lightly pack into wound bed leaving excess out for easy removal. Optifoam was cut in a square shape ~3cm x 3cm and the center was cut out to relieve pressure from wound bed and margins. This was secured with a bordered gauze dated today that can remain in place for 3-5 days unless soiled or dislodged. Jamee Myrick [facility] Oct 23, 2016 15:16
--- NOTE | 2016-10-23 16:32 | HHI.NPPN ---
Subjective Renal Failure: Chronic, Acute, Stage III History of Present Illness 66-year-old male with a past medical history of hypertension, diabetes mellitus, ischemic heart disease, congestive heart failure, chronic kidney disease. He came to the hospital with complaint of dizziness and near-syncope. I was called to see the patient because of elevated BUN and creatinine. The patient has a history of chronic kidney disease and he had acute kidney injury in the past. Baseline creatinine probably close to 1.3-1.5. Additional Remarks Patient is alert, no SOB, started eating better. Review of Systems General Constitutional: Fatigue Cardiovascular Cardiac: [place] Gastrointestinal Gastrointestinal: Nausea & Vomiting Objective Data Data 10/22/16 10/23/16 19:00 07:00 Intake Total 600 ml Output Total 400 ml Balance 200 ml Intake Oral 600 ml IV Total 0 ml Output Urine Total 400 ml # Voids 2 # Bowel Movements 0 Vital Signs Date Time Temp Pulse Resp B/P Pulse Ox O2 Delivery O2 Flow Rate FiO2 10/23/16 12:00 96.7 60 17 115/53 92 10/23/16 08:00 96.6 61 17 97/54 93 10/23/16 04:00 96.6 60 18 110/51 93 10/23/16 02:30 60 111/60 10/23/16 01:27 99/52 10/23/16 00:00 97.4 60 18 87/53 95 10/22/16 20:00 97.1 60 18 113/56 98 10/22/16 17:46 75 20 109/62 -: 10/22/16 1335 10/23/16 0514 Physical Exam General Appearance: Well Nourished, No Acute Distress, Comfortable Eyes Eye Exam: Pupils Equal Throat Throat Exam: Oral Mucosa [place] & Moist Neck Neck Exam: Neck Supple Pulmonary Resp Exam: Breath Sounds Equal, No Distress, Rhonchi, Decreased Bases, Diminished Breath Sounds Cardiology CV Exam: Regular, Normal Sinus Rhythm Gastrointestinal/Abdomen GI Exam: Soft, Non-Tender, Bowel Sounds Present Extremeties Extremities Exam: No Edema Neurologic Neuro Exam: Alert, Awake, Oriented Psychiatric Psych Exam: Appropriate Responses Assessment/Plan Assessment Summary: KAMARI/Acute Renal Failure, Dehydration, CKD Stage III Problem List: (1) Leukocytosis (2) Coronary artery disease (3) Hypertension (4) Dyslipidemia (5) Chronic systolic heart failure (6) Cardiomyopathy (7) Diabetes mellitus (8) Chronic kidney disease, stage III (moderate) (9) Acute kidney injury Plan Patient has known history of chronic kidney disease. Now also develop KAMARI, BP is stable, urine out put is better. Creatinine is slightly better. Diuretics on hold. Continue gentle hydration. Follow the urine out put and BMP. Maco Sheehan MD Oct 23, 2016 16:32
[2016-10-23] MEDS: ATORVASTATIN 80 MG TAB PO SCH (22:12)
[2016-10-23] MEDS: PREGABALIN 25 MG CAP PO SCH (22:12)
[2016-10-24] VITALS: BP 85/46; PULSE 62; RESP 16; TEMP 98.4; O2SAT 94
[2016-10-24 04:00] VITALS: BP 96/52; PULSE 60; RESP 16; TEMP 97.4; O2SAT 95
[2016-10-24] MEDS: INSULIN ASPART SUPPLEMENTAL SCALE SQ SCH ×4 (07:00→21:06)
[2016-10-24 07:04] LABS: BICARBONATE 16.9 MEQ/L (21.0-32.0); POTASSIUM 4.4 MEQ/L (3.5-5.1)
[2016-10-24 08:00] VITALS: BP 117/58; PULSE 58; RESP 15; TEMP 96.6; O2SAT 94
[2016-10-24] MEDS: PANTOPRAZOLE SOD 20 MG DELAYED RELEASE TAB PO SCH (08:20)
[2016-10-24] MEDS: ASPIRIN EC 81 MG TABEC PO SCH (08:20)
[2016-10-24] MEDS: AMIODARONE 200 MG TAB PO SCH ×2 (08:20→21:02)
[2016-10-24] MEDS: oxyCODONE/ACETAMINOPHEN 5 MG/325 MG TAB PO PRN ×2 (08:34→17:08)
--- NOTE | 2016-10-24 10:13 | HHI.PR ---
Subjective Remarks resting comfortably with no distress. no sob or dizziness. has mild back pain. BP on low side at times. d/w the RN. Objective Vitals Vital Signs Date Time Temp Pulse Resp B/P Pulse Ox O2 Delivery O2 Flow Rate FiO2 10/24/16 08:00 96.6 58 15 117/58 94 10/24/16 04:00 97.4 60 16 96/52 95 10/24/16 00:00 98.4 62 16 85/46 94 10/23/16 20:00 96.8 60 16 100/52 96 10/23/16 16:00 96.0 60 17 116/55 97 10/23/16 12:00 96.7 60 17 115/53 92 I/O 10/23/16 10/23/16 10/23/16 10/24/16 10/24/16 10/24/16 07:00 15:00 23:00 07:00 15:00 23:00 Intake Total 240 ml 1300 ml Output Total 300 ml Balance 240 ml 1300 ml -300 ml Intake Oral 240 ml 1200 ml IV Total 100 ml Output Urine Total 300 ml # Voids 2 1 1 # Bowel Movements 0 0 Result Diagram: 10/22/16 1335 10/24/16 0453 Imaging Last Impressions Head CT 10/22/16 1318 Signed Impressions: Service Date/Time: Saturday, October 22, 2016 15:05 - CONCLUSION: No acute disease. Frank Walters MD FACR Chest X-Ray 10/22/168 Signed Impressions: Service Date/Time: Saturday, October 22, 2016 13:32 - CONCLUSION: Pacer, previous bypass, mild compensated cardiomegaly. Frank Walters MD FACR Objective Remarks GENERAL: This is a well-nourished, well-developed patient, in no apparent distress. CARDIOVASCULAR: Regular rate and regular rhythm without murmurs, gallops, or rubs. RESPIRATORY: Clear to auscultation. Breath sounds equal bilaterally. No wheezes , rales, or rhonchi. GASTROINTESTINAL: Abdomen soft, non-tender, nondistended. Normal, active bowel sounds MUSCULOSKELETAL: Extremities without clubbing, cyanosis, or edema. NEURO: Alert & Oriented x4 to person, place, time, situation. Moves all ext x4 skin; wound on the right heel. Medications and IVs Current Medications Sodium Chloride 2 ml 2 ml UNSCH PRN IVF FLUSH AFTER USING IV ACCESS; Start at 13:30 Sodium Chloride (NS 1000 ml Inj) 1,000 ml @ 125 mls/hr Q8H ONCE IV Last administered on 10/22/16 13:22; Start 10/22/16 at 13:18; Stop 10/22/16 at 21:17 ; Status DC Morphine Sulfate (Morphine Inj) 4 mg ONCE ONCE IV Last administered on 14:12; Start 10/22/16 at 14:15; Stop 10/22/16 at 14:16; Status DC Dextrose (D50w (Syr) Inj) 50 ml UNSCH PRN IV HYPOGLYCEMIA-SEE COMMENTS; Start 10/22/16 at 16:00 Glucagon (Glucagon Inj) 1 mg UNSCH PRN OTHER HYPOGLYCEMIA-SEE COMMENTS; Start 10/22/16 at 15:30 Insulin Aspart 1 1 ACHS SLIDING SCALE SQ Last administered on 10/23/16 22:18 ; Start 10/22/16 at 16:00 Sodium Chloride (NS 1000 ml Inj) 1,000 ml @ 60 mls/hr [id number] ONCE IV Last administered on 10/22/16 15:53; Start 10/22/16 at 15:30; Stop 10/23/16 at 08:09 ; Status DC Oxycodone/ Acetaminophen (Percocet 5-325 Mg) 1 tab Q6H PRN PO PAIN 4-10 Last administered on 10/24/16 08:34; Start 10/22/16 at 15:30 Acetaminophen (Tylenol) 650 mg Q4H PRN PO FEVER/PAIN 1-3; Start 10/22/16 at 15: 30 Amiodarone HCl (Cordarone) 200 mg BID PO Last administered on 10/24/16 08:20; Start 10/22/16 at 21:00 Aspirin (Ecotrin Ec) 81 mg DAILY PO Last administered on 10/24/16 08:20; Start 10/23/16 at 09:00 Atorvastatin Calcium (Lipitor) 80 mg HS PO Last administered on 10/23/16 22:12 ; Start 10/22/16 at 21:00 Pregabalin (Lyrica) 25 mg HS PO Last administered on 10/23/16 22:12; Start at 21:00 Pantoprazole Sodium (Protonix) 20 mg DAILY PO Last administered on 10/24/16 08 :20; Start 10/23/16 at 09:00 Hydromorphone HCl 0.2 mg 0.2 mg Q4H PRN IV PUSH BREAKTHROUGH PAIN Last administered on 10/23/16 02:28; Start 10/22/16 at 19:00 Sodium Chloride (NS 1000 ml Inj) 1,000 ml @ 50 mls/hr Q20H ONCE IV Last administered on 10/23/16 12:13; Start 10/23/16 at 11:15; Stop 10/24/16 at 07:14 ; Status DC A/P Assessment and Plan A/P - acute kidney injury superimposed on chronic renal insufficiency- improving- continue with gentle IV hydration in light of his history of CHF- monitor I/O and renal function- nephrology following. -CAD- s/p CABG; continue aspirin and statin- hold BB due to low-normal BP's. -CHF- chronic diastolic- compensated; hold bumex for now due to KAMARI -diabetes mellitus; accu-check with SSI -wound on the right heel- consulted wound care -DVT prophylaxis with subq Heparin Discharge Planning dc home tomorrow if stable and renal function continues to improve. Tru Francis MD Oct 24, 2016 10:13
[2016-10-24] MEDS ORDERED: SODIUM CHLOR 0.9% 1000 ML INJ 1,000 ML IV ONE (10:15)
[2016-10-24 12:00] VITALS: BP 113/56; PULSE 61; RESP 16; TEMP 97.2; O2SAT 95
[2016-10-24 16:00] VITALS: BP 117/71; PULSE 71; RESP 17; TEMP 96.1; O2SAT 97
--- NOTE | 2016-10-24 18:24 | HHI.NPPN ---
Subjective Renal Failure: Chronic, Acute, Stage III History of Present Illness 66-year-old male with a past medical history of hypertension, diabetes mellitus, ischemic heart disease, congestive heart failure, chronic kidney disease. He came to the hospital with complaint of dizziness and near-syncope. I was called to see the patient because of elevated BUN and creatinine. The patient has a history of chronic kidney disease and he had acute kidney injury in the past. Baseline creatinine probably close to 1.3-1.5. Additional Remarks Patient is alert, no SOB, feeling better. Review of Systems General Constitutional: Fatigue Cardiovascular Cardiac: [place] Gastrointestinal Gastrointestinal: Nausea & Vomiting Objective Data Data 10/23/16 10/24/16 19:00 07:00 Intake Total 1300 ml Output Total 300 ml Balance 1300 ml -300 ml Intake Oral 1200 ml IV Total 100 ml Output Urine Total 300 ml # Voids 1 1 # Bowel Movements 0 Vital Signs Date Time Temp Pulse Resp B/P Pulse Ox O2 Delivery O2 Flow Rate FiO2 10/24/16 16:00 96.1 71 17 117/71 97 10/24/16 12:00 97.2 61 16 113/56 95 10/24/16 08:00 96.6 58 15 117/58 94 10/24/16 04:00 97.4 60 16 96/52 95 10/24/16 00:00 98.4 62 16 85/46 94 10/23/16 20:00 96.8 60 16 100/52 96 -: 10/22/16 1335 10/24/16 0453 Physical Exam General Appearance: Well Nourished, No Acute Distress, Comfortable Eyes Eye Exam: Pupils Equal Throat Throat Exam: Oral Mucosa [place] & Moist Neck Neck Exam: Neck Supple Pulmonary Resp Exam: Breath Sounds Equal, No Distress, Rhonchi, Decreased Bases, Diminished Breath Sounds Cardiology CV Exam: Regular, Normal Sinus Rhythm Gastrointestinal/Abdomen GI Exam: Soft, Non-Tender, Bowel Sounds Present Extremeties Extremities Exam: No Edema Neurologic Neuro Exam: Alert, Awake, Oriented Psychiatric Psych Exam: Appropriate Responses Assessment/Plan Assessment Summary: KAMARI/Acute Renal Failure, Dehydration, CKD Stage III Problem List: (1) Leukocytosis (2) Coronary artery disease (3) Hypertension (4) Dyslipidemia (5) Chronic systolic heart failure (6) Cardiomyopathy (7) Diabetes mellitus (8) Chronic kidney disease, stage III (moderate) (9) Acute kidney injury Plan Patient has known history of chronic kidney disease. Now also develop KAMARI, BP is stable, urine out put is better. Creatinine continue to improve. Diuretics on hold. Continue gentle hydration. His BP is now stable, will need diuretics later on, but lower dose. Continue to hold diuretics for now. Maco Sheehan MD Oct 24, 2016 18:24
[2016-10-24 20:00] VITALS: BP 139/62; PULSE 60; RESP 18; TEMP 97.9; O2SAT 96
[2016-10-24] MEDS: ATORVASTATIN 80 MG TAB PO SCH (21:02)
[2016-10-24] MEDS: PREGABALIN 25 MG CAP PO SCH (21:02)
[2016-10-25] VITALS: BP 131/60; PULSE 60; RESP 16; TEMP 96.2; O2SAT 96
[2016-10-25 04:00] VITALS: BP 104/52; PULSE 61; RESP 16; TEMP 96.9; O2SAT 93
[2016-10-25] MEDS: INSULIN ASPART SUPPLEMENTAL SCALE SQ SCH ×2 (06:06→11:00)
[2016-10-25 06:17] LABS: BICARBONATE 16.4 MEQ/L (21.0-32.0); POTASSIUM 4.4 MEQ/L (3.5-5.1)
[2016-10-25 08:00] VITALS: BP 118/58; PULSE 60; RESP 16; TEMP 96.5; O2SAT 94
[2016-10-25] MEDS: oxyCODONE/ACETAMINOPHEN 5 MG/325 MG TAB PO PRN (09:37)
[2016-10-25] MEDS: ASPIRIN EC 81 MG TABEC PO SCH (09:37)
[2016-10-25] MEDS: PANTOPRAZOLE SOD 20 MG DELAYED RELEASE TAB PO SCH (09:37)
[2016-10-25] MEDS: AMIODARONE 200 MG TAB PO SCH (09:37)
[2016-10-25 10:37] VITALS: RESP 16
[2016-10-25] MEDS: HYDROmorphone HCL PF 1 MG/ML VIAL IV PUSH PRN (10:54)
[2016-10-25] MEDS ORDERED: OXYC1TAB63 PO (11:26)
--- NOTE | 2016-10-25 11:33 | HHI.DS ---
Discharge Summary Admission Date Oct 22, 2016 at 15:31 Discharge Date: Oct 25, 2016 Admitting Diagnosis Acute on chronic kidney disease, anemia, near syncope, paced rhythm (1) Acute kidney injury ICD Code: N17.9 Diagnosis: Principal Procedures none Brief History - From Admission patient is a 66 y/o male with history of CAD, CHF, hypertension, diabetes mellitus and chronic renal insufficiency who was brought to ER with dizziness. he says that he was driving his mother tho her doctor's office this afternoon when he started to feel dizzy and lightheaded. he says that he almost passed out. he says that because of his CHF the dose of his Bumex was increased recently. he denies any chest pain, sob,diarrhea, vomiting, fever. his systolic BP was reportedly in 70's which improved after IV fluid. he's also complaining of some pain to the right foot wound which is being followed up by his video specialist. CBC/BMP: 10/22/16 1335 10/25/16 0529 Significant Findings Laboratory Tests Test 10/22/16 10/23/16 10/24/16 10/25/16 13:35 05:14 04:53 05:29 White Blood Count 12.6 TH/MM3 (4.0-11.0) Red Blood Count 3.64 MIL/MM3 (4.50-5.90) Hemoglobin 10.5 GM/DL (13.0-17.0) Hematocrit 32.6 % (39.0-51.0) Neutrophils (%) (Auto) 79.2 % (16.0-70.0) Neutrophils # (Auto) 10.0 TH/MM3 (1.8-7.7) Chloride Level 108 MEQ/L 109 MEQ/L 113 MEQ/L 117 MEQ/L (98-107) (98-107) (98-107) (98-107) Carbon Dioxide Level 15.1 MEQ/L 17.4 MEQ/L 16.9 MEQ/L 16.4 MEQ/L (21.0-32.0) (21.0-32.0) (21.0-32.0) (21.0-32.0) Blood Urea Nitrogen 79 MG/DL (7-18) 85 MG/DL (7-18) 74 MG/DL (7-18) 59 MG/DL (7- 18) Creatinine 5.27 MG/DL 4.26 MG/DL 2.96 MG/DL 2.36 MG/DL (0.60-1.30) (0.60-1.30) (0.60-1.30) (0.60-1.30) Estimat Glomerular Filtration 11 ML/MIN (>89) 14 ML/MIN (>89) 21 ML/MIN (>89) 28 ML/MIN (>89) Rate Random Glucose 206 MG/DL 156 MG/DL 148 MG/DL 199 MG/DL (74-106) (74-106) (74-106) (74-106) Calcium Level 7.4 MG/DL 7.6 MG/DL 7.7 MG/DL 7.8 MG/DL (8.5-10.1) (8.5-10.1) (8.5-10.1) (8.5-10.1) Protein Corrected Calcium 7.8 MG/DL (8.5-10.1) Alkaline Phosphatase 123 U/L (45-117) Creatine Kinase MB 4.3 NG/ML (0.5-3.6) Troponin I LESS THAN 0.02 NG/ML (0.02-0.05) Total Protein 6.3 GM/DL (6.4-8.2) Albumin 3.0 GM/DL (3.4-5.0) Imaging Last Impressions Head CT 10/22/161317 Signed Impressions: Service Date/Time: Saturday, October 22, 2016 15:05 - CONCLUSION: No acute disease. Frank Walters MD FACR Chest X-Ray 10/22/161317 Signed Impressions: Service Date/Time: Saturday, October 22, 2016 13:32 - CONCLUSION: Pacer, previous bypass, mild compensated cardiomegaly. Frank Walters MD FACR PE at Discharge GENERAL: This is a well-nourished, well-developed patient, in no apparent distress. CARDIOVASCULAR: Regular rate and regular rhythm without murmurs, gallops, or rubs. RESPIRATORY: Clear to auscultation. Breath sounds equal bilaterally. No wheezes GASTROINTESTINAL: Abdomen soft, non-tender, nondistended. Normal, active bowel sounds MUSCULOSKELETAL: Extremities without edema. NEURO: Alert & Oriented. Moves all ext x4 skin; wound on the right heel. Pt update on day of discharge Pt feels well. Has some back pain but pain meds help. Denies any CP/SOB/N/V He would like to go home today. Hospital Course - acute kidney injury superimposed on chronic renal insufficiency- improving- creatinine at 2.36 this morning Status post IV hydration in light of his history of CHF- monitor I/O and renal function- nephrology following. Discussed with Dr. Sr and from his standpoint the patient can be discharged. Follow-up with PCP and nephrology as an outpatient. Prescription for BMP given to be done in 2-3 days. -CAD- s/p CABG; continue aspirin and statin- hold BB due to low-normal BP's. -CHF- chronic diastolic- compensated; hold bumex for now due to KAMARI -diabetes mellitus; accu-check with SSI -wound on the right heel-continue dressing changes per the recommendation. Pt Condition on Discharge: Stable Discharge Disposition: Discharge Home Discharge Time: > 30 minutes Discharge Instructions DIET: Follow Instructions for: Renal Failure Diet Activities you can perform: Regular-No Restrictions Follow up Referrals: Nephrology - 1 Week PCP Follow-up - 2-3 Days New Orders: BASIC METABOLIC PROF - 2-3 Days New Medications: Oxycodone-Acetaminophen (Oxycodone-Acetaminophen) 5-325 mg Tab 1 TAB PO Q6H PRN PAIN 4-10 #15 TAB Continued Medications: Amiodarone (Amiodarone) 200 Mg Tab 200 MG PO BID Regulate Heart Beat #28 Ref [address] (Aspirin EC) 81 Mg Tabdr 81 MG PO DAILY Ref 0 TAB Atorvastatin (Atorvastatin) 80 Mg Tab 80 MG PO HS Cholesterol Management #30 Ref 0 TAB Omeprazole (Omeprazole) 20 Mg Tab 20 MG PO DAILY #30 Ref 0 TAB Pregabalin (Lyrica) 75 Mg Cap 75 MG PO BID #60 Ref 0 CAP Discontinued Medications: Amlodipine (Norvasc) 5 Mg Tab 2.5 MG PO DAILY hypertension Days 30 Ref 0 TAB Bumetanide (Bumetanide) 1 Mg Tab 2 MG PO BID #60 Ref 0 TAB Carvedilol (Coreg) 3.125 Mg Tab 3.125 MG PO Q12HR cad Days 30 Ref 0 TAB Kayla Peters MD Oct 25, 2016 11:33
== END 2016-10-25 13:28 | disposition home or self-care (01) | DRG 683 ==
LOC: NEPE 12:22 → NEDA 15:31 → N07A 18:41
PROVIDERS: ADMIT Hospitalist; ATTEND Hospitalist
DX: N17.0 Acute kidney failure with tubular necrosis (principal); I50.22 Chronic systolic (congestive) heart failure; I95.9 Hypotension, unspecified; E87.2 Acidosis; I42.9 Cardiomyopathy, unspecified; I13.0 Hypertensive heart and chronic kidney disease with heart failure and stage 1 through stage 4 chronic kidney disease, or unspecified chronic kidney disease; E11.21 Type 2 diabetes mellitus with diabetic nephropathy; I48.91 Unspecified atrial fibrillation; E11.40 Type 2 diabetes mellitus with diabetic neuropathy, unspecified; L89.619 Pressure ulcer of right heel, unspecified stage; R55 Syncope and collapse; I25.2 Old myocardial infarction; I25.10 Atherosclerotic heart disease of native coronary artery without angina pectoris; N18.3 Chronic kidney disease, stage 3 (moderate); D64.9 Anemia, unspecified; E11.22 Type 2 diabetes mellitus with diabetic chronic kidney disease; E86.0 Dehydration; E78.5 Hyperlipidemia, unspecified; D72.829 Elevated white blood cell count, unspecified; F17.210 Nicotine dependence, cigarettes, uncomplicated; Z95.0 Presence of cardiac pacemaker; Z95.1 Presence of aortocoronary bypass graft; Z95.5 Presence of coronary angioplasty implant and graft
CPT/HCPCS: 70450; 71010; 76937; 80048; 80053; 81001; 82550; 82552; 82948; 83935; 84300; 84484; 85025; 93005; 96361; 96374; J1170; J1815; J2270; J7030